=== PATIENT | female | born 1970 | race American Indian/Alaskan Native ===

== ENCOUNTER 2017-01-25 17:20 | Emergency (ER) | payer MEDICARE ==
[2017-01-25 18:13] LABS: Anion Gap 17 mmol/L; Blood Urea Nitrogen 10 mg/dL (7-17); Calcium 8.6 mg/dL (8.4-10.2); Carbon Dioxide 26 mmol/L (22-30); Chloride 101.2 mmol/L (98-107); Glucose 111 mg/dL (65-100); Potassium 3.1 mmol/L (3.6-5.0); Sodium 141 mmol/L (137-145)
[2017-01-25] MEDS ORDERED: K-DUR PO ONE (21:17)
--- NOTE | 2017-01-25 21:58 | Emergency Department Report ---
ED Extremity Problem HPI - General Chief complaint: Extremity Problem,Nontraumatic Stated complaint: ASTHMA Time Seen by Provider: 01/25/17 21:13 Source: patient Mode of arrival: Ambulatory Limitations: No Limitations - History of Present Illness Initial comments: PT c/o leg pain x 2 days. PT states that she noticed that her feet were puffy last night. PT denies injury or trauma. PT states the last time she felt this way, her potassium level was low. PT denies hx of htn. PT states her daughter passed out today and she thinks that it has her bp elevated. MD Complaint: extremity pain Onset/Timin -: Gradual, days(s) Location: lower extremity, bilateral lower extremity History of Same: Yes -: Yes myalgia Severity scale (0 -10): 10 Quality: aching, constant Consistency: constant Improves with: medication (PT states " I need K+") Worsens with: walking Associated Symptoms: myalgias. denies: chest pain - Related Data Previous Rx's Medication Instructions Recorded Last Taken Type Loratadine/Pseudoephedrine 1 tab PO Q12H #60 tablet 05/01/16 1 Day Ago Rx [Claritin-D 12HR] Pantoprazole [Protonix] 40 mg PO QDAY #30 tablet 07/06/16 Unknown Rx methOCARBAMOL [Robaxin TAB] 500 mg PO BID #20 tab 08/21/16 Unknown Rx hydrOXYzine PAMOATE [Vistaril] 50 mg PO Q6HR PRN #15 capsule 09/12/16 Unknown Rx predniSONE [Deltasone] 60 mg PO QDAY #3 tab 09/12/16 Unknown Rx Fluticasone/Salmeterol [Advair 1 puff IH BID #1 blst.w.dev 10/03/16 Unknown Rx Diskus 500-50 mcg] Albuterol Sulfate [Albuterol 0.63% 0.63 mg IH TID PRN #1 box 11/02/16 Unknown Rx NEBS] Acetaminophen/Codeine [Tylenol #3] 1 tab PO Q6H PRN #8 tab 01/25/17 Unknown Rx Potassium Chloride [K-Dur] 20 meq PO QDAY #3 tablet 01/25/17 Unknown Rx Allergies Allergy/AdvReac Type Severity Reaction Status Date / Time doxycycline Allergy Rash Verified 12/11/15 13:48 famotidine [From Pepcid] Allergy Hives Verified 03/11/16 15:13 ketorolac tromethamine Allergy Anaphylaxis Verified 12/11/15 13:48 [From Toradol] Latex, Natural Rubber Allergy Angioedema Verified 12/11/15 13:48 tiotropium bromide Allergy Anaphylaxis Verified 12/11/15 13:48 [From Spiriva with HandiHaler] azithromycin [From Zithromax] AdvReac Anaphylaxis Verified 12/11/15 13:48 NSAIDS (Non-Steroidal AdvReac Anaphylaxis Verified 12/11/15 13:48 Anti-Inflamma Penicillins AdvReac Hives Verified 02/09/16 22:11 ED Review of Systems ROS: Stated complaint: ASTHMA Other details as noted in HPI Comment: All other systems reviewed and negative Constitutional: denies: fever Cardiovascular: denies: chest pain Musculoskeletal: myalgia, other (pt states her feet were swollen last night ) Skin: denies: change in color Neurological: headache. denies: weakness, abnormal gait Psychiatric: other (pt statse she had a stressful day ) ED Past Medical Hx - Past Medical History Previous Medical History?: Yes Hx Hypertension: No Hx Heart Attack/AMI: No Hx Congestive Heart Failure: No Hx Diabetes: No Hx Deep Vein Thrombosis: No Hx Pulmonary Embolism: No Hx GERD: Yes Hx Liver Disease: No Hx Renal Disease: No Hx Sickle Cell Disease: No Hx Arthritis: No Hx Seizures: No Hx Kidney Stones: No Hx Asthma: Yes Hx COPD: No Hx Tuberculosis: No Hx Dementia: No Hx HIV: No Additional medical history: sinus problems. - Surgical History Past Surgical History?: Yes Hx Coronary Stent: No Hx Open Heart Surgery: No Hx Pacemaker: No Hx Internal Defibrillator: No Hx Cholecystectomy: No Hx Appendectomy: No Hx Breast Surgery: No Additional Surgical History: x4, umbilical hernia repair, sinus surgeries, D&C - Social History Smoking Status: Never Smoker Substance Use Type: None - Medications Home Medications: Home Medications Medication Instructions Recorded Confirmed Last Taken Type Loratadine/Pseudoephedrine 1 tab PO Q12H #60 tablet 05/01/16 07/04/16 1 Day Ago Rx [Claritin-D 12HR] Pantoprazole [Protonix] 40 mg PO QDAY #30 tablet 07/06/16 Unknown Rx methOCARBAMOL [Robaxin TAB] 500 mg PO BID #20 tab 08/21/16 Unknown Rx hydrOXYzine PAMOATE [Vistaril] 50 mg PO Q6HR PRN #15 capsule 09/12/16 Unknown Rx predniSONE [Deltasone] 60 mg PO QDAY #3 tab 09/12/16 Unknown Rx Fluticasone/Salmeterol [Advair 1 puff IH BID #1 blst.w.dev 10/03/16 Unknown Rx Diskus 500-50 mcg] Albuterol Sulfate [Albuterol 0.63% 0.63 mg IH TID PRN #1 box 11/02/16 Unknown Rx NEBS] Acetaminophen/Codeine [Tylenol #3] 1 tab PO Q6H PRN #8 tab 01/25/17 Unknown Rx Potassium Chloride [K-Dur] 20 meq PO QDAY #3 tablet 01/25/17 Unknown Rx ED Physical Exam - General Limitations: No Limitations General appearance: alert, in no apparent distress - Head Head exam: Present: atraumatic, normocephalic, normal inspection - Eye Eye exam: Present: normal appearance. Absent: scleral icterus, conjunctival injection - ENT ENT exam: Present: normal exam, normal external ear exam - Neck Neck exam: Present: normal inspection, full ROM - Respiratory Respiratory exam: Absent: respiratory distress, accessory muscle use - Cardiovascular Cardiovascular Exam: Present: regular rate, normal rhythm - Extremities Exam Extremities exam: Present: normal inspection, full ROM, normal capillary refill , other (+ 2 DP kimberly ). Absent: tenderness, pedal edema, joint swelling, calf tenderness - Back Exam Back exam: Present: normal inspection, full ROM - Neurological Exam Neurological exam: Present: alert, oriented X3, normal gait - Psychiatric Psychiatric exam: Present: normal affect, normal mood - Skin Skin exam: Present: warm, dry, intact, normal color. Absent: erythema ED Course Vital Signs 01/25/17 01/25/17 17:26 22:20 Temperature 98.6 F 98.7 F Pulse Rate 93 H 75 Respiratory 20 20 Rate Blood Pressure 141/70 Blood Pressure 137/85 [Right] O2 Sat by Pulse 98 99 Oximetry - Reevaluation(s) Reevaluation #1: 01/25/17 22:06 PT aware of lab results. PT aware she will need to have her bp rechecked at follow up. PT has no questions at this time. - Pulse Oximetry Interpretation Digit-Finger Initial Pulse Oximetry Readin Actions Taken: none ED Medical Decision Making - Lab Data Result diagrams: 01/25/17 17:37 Lab Results 01/25/17 01/25/17 Range/Units 17:37 17:37 D-Dimer 233.08 (0-234) ng/mlDDU Sodium 141 (137-145) mmol/L Potassium 3.1 L (3.6-5.0) mmol/L Chloride 101.2 (98-107) mmol/L Carbon Dioxide 26 (22-30) mmol/L Anion Gap 17 mmol/L BUN 10 (7-17) mg/dL Creatinine 0.8 (0.7-1.2) mg/dL Estimated GFR > 60 ml/min BUN/Creatinine Ratio 12.50 % Glucose 111 H (65-100) mg/dL Calcium 8.6 (8.4-10.2) mg/dL - Differential Diagnosis hypokalemia, pain Critical Care Time: No Critical care attestation.: If time is entered above; I have spent that time in minutes in the direct care of this critically ill patient, excluding procedure time. ED Disposition Clinical Impression: Hypokalemia Leg pain Qualifiers: Laterality: bilateral Qualified Code(s): M79.604 - Pain in right leg Disposition: DISCHARGED TO HOME OR SELFCARE Is pt being admited?: No Does the pt Need Aspirin: No Condition: Stable Instructions: Potassium Content of Foods List (ED), Hypokalemia (ED) Additional Instructions: Follow up with your PCP early next week No driving or ETOH after Tylenol #3 Recheck your bp on follow up Return to the ED if worsening or concerns Prescriptions: Acetaminophen/Codeine [Tylenol #3] 1 tab PO Q6H PRN #8 tab PRN Reason: Pain , Severe (7-10) Potassium Chloride [K-Dur] 20 meq PO QDAY #3 tablet Referrals: HIWOT BRUNO MD [Primary Care Provider] - 3-5 Days Time of Disposition: 22:09
[2017-01-25 22:23] VITALS: BP 137/85
== END 2017-01-25 22:23 | disposition home or self-care (01) ==
LOC: ED 17:20
DX: E87.6 Hypokalemia (principal); M79.604 Pain in right leg; M79.605 Pain in left leg; K20.9 Esophagitis, unspecified; J45.909 Unspecified asthma, uncomplicated
CPT/HCPCS: 36415; 80048; 85379; 99283

== ENCOUNTER 2017-02-05 22:42 | Emergency (ER) | payer MEDICARE ==
[2017-02-05] MEDS: XOPENEX IH ONE (22:55)
[2017-02-05 23:23] LABS: Basophils % (Auto) 0.4 % (0.0-1.8); Hematocrit 36.5 % (30.3-42.9); Hemoglobin 11.4 gm/dl (10.1-14.3); Mean Corpuscular HGB Conc 31 % (30-34); Mean Corpuscular Volume 80 fl (79-97); Platelet Count 241 K/mm3 (140-440); Red Blood Count 4.59 M/mm3 (3.65-5.03); Red Cell Distribution Width 17.9 % (13.2-15.2); White Blood Count 15.3 K/mm3 (4.5-11.0)
[2017-02-05 23:25] LABS: Mean Corpuscular Hemoglobin 25 pg (28-32)
[2017-02-05 23:33] LABS: Anion Gap 21 mmol/L; BUN/Creatinine Ratio 6.66; Blood Urea Nitrogen 6 mg/dL (7-17); Calcium 8.5 mg/dL (8.4-10.2); Carbon Dioxide 20 mmol/L (22-30); Chloride 100.1 mmol/L (98-107); Glucose 223 mg/dL (65-100); Potassium 3.7 mmol/L (3.6-5.0); Sodium 137 mmol/L (137-145)
[2017-02-06] MEDS: ATROVENT IH ONE (02:49)
[2017-02-06] MEDS: PROVENTIL IH ONE (02:49)
[2017-02-06] MEDS: TYLENOL PO ONE (03:09)
[2017-02-06] MEDS: NACL 0.9% 1000 ML 1,000 ML IV ONE (03:10)
[2017-02-06] MEDS: MAGNESIUM SULFATE 2GM/50ML 2 GM/50 ML BAG IV ONE (03:10)
--- NOTE | 2017-02-06 03:22 | Emergency Department Report ---
ED General Adult HPI - General Chief complaint: Adult Asthma Stated complaint: CHEST PAIN/FEVER Time Seen by Provider: 02/06/17 02:26 Source: patient, RN notes reviewed, old records reviewed Mode of arrival: Ambulatory Limitations: No Limitations - History of Present Illness Initial comments: This is a 46-year-old female. Her primary care doctors Dr. Shon Bruno. Past medical history includes GERD, asthma, obesity, asthma. Reports multiple hospital admissions, reports 3 my time intubations. The patient comes to the ER complaining of cough, wheezing, shortness of breath , back pain, total body pain. She reports a fever at home to 103. The symptoms; on for the past day or so. There is no posterior leg pain. There is no posterior leg swelling. No recent trips greater than 4 hours. No recent hospital admissions. The patient does not take control tablets. She does not take cocaine. The patient had a negative nuclear stress test in 2016. Patient reports her symptoms today feel similar to prior episodes of asthma and bronchitis. She does describe anterior chest wall discomfort, which does not radiates to the back, arms or neck. -: Gradual Location: chest, back Severity scale (0 -10): 7 Quality: aching Consistency: constant Improves with: rest Worsens with: movement Associated Symptoms: chest pain, cough, fever/chills, weakness - Related Data Previous Rx's Medication Instructions Recorded Last Taken Type Loratadine/Pseudoephedrine 1 tab PO Q12H #60 tablet 05/01/16 1 Day Ago Rx [Claritin-D 12HR] Pantoprazole [Protonix] 40 mg PO QDAY #30 tablet 07/06/16 Unknown Rx methOCARBAMOL [Robaxin TAB] 500 mg PO BID #20 tab 08/21/16 Unknown Rx hydrOXYzine PAMOATE [Vistaril] 50 mg PO Q6HR PRN #15 capsule 09/12/16 Unknown Rx predniSONE [Deltasone] 60 mg PO QDAY #3 tab 09/12/16 Unknown Rx Fluticasone/Salmeterol [Advair 1 puff IH BID #1 blst.w.dev 10/03/16 Unknown Rx Diskus 500-50 mcg] Albuterol Sulfate [Albuterol 0.63% 0.63 mg IH TID PRN #1 box 11/02/16 Unknown Rx NEBS] Acetaminophen/Codeine [Tylenol #3] 1 tab PO Q6H PRN #8 tab 01/25/17 Unknown Rx Potassium Chloride [K-Dur] 20 meq PO QDAY #3 tablet 01/25/17 Unknown Rx Albuterol Sulfate [Proair 90 mcg IH Q4HR PRN #2 aer.pow.ba 02/06/17 Unknown Rx Respiclick] Benzonatate [Tessalon Perles] 100 mg PO Q8HR PRN #30 capsule 02/06/17 Unknown Rx Fluticasone [Flonase] 1 spray NS QDAY #1 bottle 02/06/17 Unknown Rx Ipratropium [place] [Atrovent Hfa] 12.9 gm IH Q4HR #2 hfa.aer.ad 02/06/17 Unknown Rx Ipratropium [Atrovent NEB] 0.5 mg IH Q4HR #2 ml 02/06/17 Unknown Rx predniSONE [Deltasone] 40 mg PO QDAY #8 tab 02/06/17 Unknown Rx Allergies Allergy/AdvReac Type Severity Reaction Status Date / Time doxycycline Allergy Rash Verified 12/11/15 13:48 famotidine [From Pepcid] Allergy Hives Verified 03/11/16 15:13 ketorolac tromethamine Allergy Anaphylaxis Verified 12/11/15 13:48 [From Toradol] Latex, Natural Rubber Allergy Angioedema Verified 12/11/15 13:48 tiotropium bromide Allergy Anaphylaxis Verified 12/11/15 13:48 [From Spiriva with HandiHaler] azithromycin [From Zithromax] AdvReac Anaphylaxis Verified 12/11/15 13:48 NSAIDS (Non-Steroidal AdvReac Anaphylaxis Verified 12/11/15 13:48 Anti-Inflamma Penicillins AdvReac Hives Verified 02/09/16 22:11 ED Review of Systems ROS: Stated complaint: CHEST PAIN/FEVER Other details as noted in HPI Constitutional: fever Eyes: denies: vision change ENT: denies: epistaxis Respiratory: cough, wheezing Cardiovascular: chest pain Gastrointestinal: denies: abdominal pain Musculoskeletal: back pain, arthralgia, myalgia Skin: denies: lesions Neurological: weakness ED Past Medical Hx - Past Medical History Previous Medical History?: Yes Hx Hypertension: No Hx Heart Attack/AMI: No Hx Congestive Heart Failure: No Hx Diabetes: No Hx Deep Vein Thrombosis: No Hx Pulmonary Embolism: No Hx GERD: Yes Hx Liver Disease: No Hx Renal Disease: No Hx Sickle Cell Disease: No Hx Arthritis: No Hx Seizures: No Hx Kidney Stones: No Hx Asthma: Yes Hx COPD: No Hx Tuberculosis: No Hx Dementia: No Hx HIV: No Additional medical history: sinus problems. - Surgical History Past Surgical History?: Yes Hx Coronary Stent: No Hx Open Heart Surgery: No Hx Pacemaker: No Hx Internal Defibrillator: No Hx Cholecystectomy: No Hx Appendectomy: No Hx Breast Surgery: No Additional Surgical History: x4, umbilical hernia repair, sinus surgeries, D&C - Social History Smoking Status: Never Smoker Substance Use Type: None - Medications Home Medications: Home Medications Medication Instructions Recorded Confirmed Last Taken Type Loratadine/Pseudoephedrine 1 tab PO Q12H #60 tablet 05/01/16 07/04/16 1 Day Ago Rx [Claritin-D 12HR] Pantoprazole [Protonix] 40 mg PO QDAY #30 tablet 07/06/16 Unknown Rx methOCARBAMOL [Robaxin TAB] 500 mg PO BID #20 tab 08/21/16 Unknown Rx hydrOXYzine PAMOATE [Vistaril] 50 mg PO Q6HR PRN #15 capsule 09/12/16 Unknown Rx predniSONE [Deltasone] 60 mg PO QDAY #3 tab 09/12/16 Unknown Rx Fluticasone/Salmeterol [Advair 1 puff IH BID #1 blst.w.dev 10/03/16 Unknown Rx Diskus 500-50 mcg] Albuterol Sulfate [Albuterol 0.63% 0.63 mg IH TID PRN #1 box 11/02/16 Unknown Rx NEBS] Acetaminophen/Codeine [Tylenol #3] 1 tab PO Q6H PRN #8 tab 01/25/17 Unknown Rx Potassium Chloride [K-Dur] 20 meq PO QDAY #3 tablet 01/25/17 Unknown Rx Albuterol Sulfate [Proair 90 mcg IH Q4HR PRN #2 aer.pow.ba 02/06/17 Unknown Rx Respiclick] Benzonatate [Tessalon Perles] 100 mg PO Q8HR PRN #30 capsule 02/06/17 Unknown Rx Fluticasone [Flonase] 1 spray NS QDAY #1 bottle 02/06/17 Unknown Rx Ipratropium [place] [Atrovent Hfa] 12.9 gm IH Q4HR #2 hfa.aer.ad 02/06/17 Unknown Rx Ipratropium [Atrovent NEB] 0.5 mg IH Q4HR #2 ml 02/06/17 Unknown Rx predniSONE [Deltasone] 40 mg PO QDAY #8 tab 02/06/17 Unknown Rx ED Physical Exam - General Limitations: No Limitations General appearance: alert, in no apparent distress - Head Head exam: Present: atraumatic, normocephalic - Eye Eye exam: Present: normal appearance, EOMI. Absent: nystagmus - ENT ENT exam: Present: normal exam, normal orophraynx, mucous membranes moist, normal external ear exam - Neck Neck exam: Present: normal inspection, full ROM. Absent: tenderness, meningismus - Respiratory Respiratory exam: Present: respiratory distress, wheezes, rhonchi - Cardiovascular Cardiovascular Exam: Present: normal rhythm, tachycardia, normal heart sounds. Absent: systolic murmur, diastolic murmur, rubs, gallop - GI/Abdominal GI/Abdominal exam: Present: soft, normal bowel sounds. Absent: distended, tenderness, guarding, rebound, rigid, pulsatile mass - Extremities Exam Extremities exam: Present: normal inspection, full ROM, normal capillary refill. Absent: tenderness, pedal edema, joint swelling, calf tenderness - Back Exam Back exam: Present: normal inspection, full ROM. Absent: tenderness, CVA tenderness (R), CVA tenderness (L), muscle spasm - Neurological Exam Neurological exam: Present: alert, oriented X3, normal gait, other (Extraocular movements intact. Tongue midline. No facial droop. Facial sensation intact to light touch in the V1, V2, V3 distribution bilaterally. 5 and 5 strength in 4 extremities.. Sensation is intact to light touch in 4 extremities.). Absent : motor sensory deficit - Psychiatric Psychiatric exam: Present: normal affect, normal mood - Skin Skin exam: Present: warm, dry, intact, normal color. Absent: rash ED Course Vital Signs 02/05/17 02/06/17 02/06/17 22:47 01:29 01:30 Temperature 99.8 F H Pulse Rate 112 H 106 H Pulse Rate [ Anterior Upper Lobe] Respiratory 28 H 26 H 26 H Rate Respiratory Rate [Anterior Upper Lobe] Blood Pressure 116/75 130/72 [Right] O2 Sat by Pulse 97 98 Oximetry 05/03/17 05/03/17 05/03/17 02:49 03:32 04:00 Temperature Pulse Rate 100 H Pulse Rate [ 102 H 107 H Anterior Upper Lobe] Respiratory 20 Rate Respiratory 18 18 Rate [Anterior Upper Lobe] Blood Pressure 125/68 [Right] O2 Sat by Pulse 97 Oximetry 02/06/17 04:35 Temperature Pulse Rate 78 Pulse Rate [ Anterior Upper Lobe] Respiratory 16 Rate Respiratory Rate [Anterior Upper Lobe] Blood Pressure 110/65 [Right] O2 Sat by Pulse 96 Oximetry - Reevaluation(s) Reevaluation #1: 02/06/17 03:52 differential diagnosis: Pneumonia, influenza-like illness, myositis, viral syndrome, acute coronary syndrome, asthma exacerbation, bronchitis Assessment and plan: 46-year-old female with approximately 36 hours of bodyaches , fever, cough, chest wall pain, congestion and wheezing. No pulmonary embolus or DVT risk factors, low risk by well's criteria. EKG is appreciated, it is morphologically abnormal, patient had a negative nuclear stress test in 2016. The patient is low risk by TATE score, low risk by Heart score. She reports that she does not experience anaphylaxis with Atrovent. She will be treated with Albuterol, Atrovent, steroids, magnesium, Tylenol. We will check basic laboratory studies, influenza swab. We will give her a trial of ambulation. We will reassess. Reevaluation #2: 02/06/17 04:28 patient still wheezing slightly. However she is able to ambulate without desaturation. Repeat EKG essentially unremarkable. Repeat troponin negative. Patient feels improved. Reevaluation #3: 02/06/17 05:25 reassessed. Sleeping comfortably. Tachycardia resolved. Troponin negative 2. Flu swab negative. Patient will be discharged. Appropriate prescriptions have been written. ED Medical Decision Making - Lab Data Result diagrams: 02/05/17 22:57 02/05/17 22:57 Vital Signs 02/05/17 02/06/17 02/06/17 22:47 01:29 01:30 Temperature 99.8 F H Pulse Rate 112 H 106 H Pulse Rate [ Anterior Upper Lobe] Respiratory 28 H 26 H 26 H Rate Respiratory Rate [Anterior Upper Lobe] Blood Pressure 116/75 130/72 [Right] O2 Sat by Pulse 97 98 Oximetry 02/06/17 02/06/17 02:49 03:32 Temperature Pulse Rate 100 H Pulse Rate [ 102 H Anterior Upper Lobe] Respiratory 20 Rate Respiratory 18 Rate [Anterior Upper Lobe] Blood Pressure 125/68 [Right] O2 Sat by Pulse 97 Oximetry Lab Results 02/05/17 02/05/17 02/06/17 Range/Units 22:57 22:57 02:58 WBC 15.3 H (4.5-11.0) K/mm3 RBC 4.59 (3.65-5.03) M/mm3 Hgb 11.4 (10.1-14.3) gm/dl Hct 36.5 (30.3-42.9) % MCV 80 (79-97) fl MCH 25 L (28-32) pg MCHC 31 (30-34) % RDW 17.9 H (13.2-15.2) % Plt Count 241 (140-440) K/mm3 Lymph % (Auto) 9.6 L (13.4-35.0) % Alcorn % (Auto) 8.5 H (0.0-7.3) % Eos % (Auto) 3.0 (0.0-4.3) % Baso % (Auto) 0.4 (0.0-1.8) % Lymph # 1.5 (1.2-5.4) K/mm3 Alcorn # 1.3 H (0.0-0.8) K/mm3 Eos # 0.5 H (0.0-0.4) K/mm3 Baso # 0.1 (0.0-0.1) K/mm3 Seg Neutrophils % 78.5 H (40.0-70.0) % Seg Neutrophils # 12.0 H (1.8-7.7) K/mm3 PT 13.4 (12.2-14.9) Sec. INR 1.03 (0.87-1.13) Sodium 137 (137-145) mmol/L Potassium 3.7 (3.6-5.0) mmol/L Chloride 100.1 (98-107) mmol/L Carbon Dioxide 20 L (22-30) mmol/L Anion Gap 21 mmol/L BUN 6 L (7-17) mg/dL Creatinine 0.9 (0.7-1.2) mg/dL Estimated GFR > 60 ml/min BUN/Creatinine Ratio 6.66 % Glucose 223 H (65-100) mg/dL Calcium 8.5 (8.4-10.2) mg/dL Total Creatine Kinase (30-135) units/L Troponin T < 0.010 (0.00-0.029) ng/mL HCG, Quant (0-4) mIU/mL 02/06/17 02/06/17 Range/Units 02:58 02:58 WBC (4.5-11.0) K/mm3 RBC (3.65-5.03) M/mm3 Hgb (10.1-14.3) gm/dl Hct (30.3-42.9) % MCV (79-97) fl MCH (28-32) pg MCHC (30-34) % RDW (13.2-15.2) % Plt Count (140-440) K/mm3 Lymph % (Auto) (13.4-35.0) % Alcorn % (Auto) (0.0-7.3) % Eos % (Auto) (0.0-4.3) % Baso % (Auto) (0.0-1.8) % Lymph # (1.2-5.4) K/mm3 Alcorn # (0.0-0.8) K/mm3 Eos # (0.0-0.4) K/mm3 Baso # (0.0-0.1) K/mm3 Seg Neutrophils % (40.0-70.0) % Seg Neutrophils # (1.8-7.7) K/mm3 PT (12.2-14.9) Sec. INR (0.87-1.13) Sodium (137-145) mmol/L Potassium (3.6-5.0) mmol/L Chloride (98-107) mmol/L Carbon Dioxide (22-30) mmol/L Anion Gap mmol/L BUN (7-17) mg/dL Creatinine (0.7-1.2) mg/dL Estimated GFR ml/min BUN/Creatinine Ratio % Glucose (65-100) mg/dL Calcium (8.4-10.2) mg/dL Total Creatine Kinase 333 H (30-135) units/L Troponin T (0.00-0.029) ng/mL HCG, Quant < 2 (0-4) mIU/mL - EKG Data -: EKG Interpreted by Me EKG shows normal: sinus rhythm, axis - EKG Data 02/06/17 03:55 sinus tachycardia, 113 beats per minute, QTC 460 ms, T-wave inversion in 3 and aVF, abnormal EKG, not morphologically consistent with STEMI , but compared to prior EKG from 07/06/2016, no significant changes. EKG #2 demonstrates sinus tachycardia, 115 bpm, normal intervals, normal axis, not morphologically consistent with STEMI. 02/06/17 04:28 - Radiology Data Radiology results: image reviewed interpreted by me: X-ray of the chest is negative for acute disease. Critical care attestation.: If time is entered above; I have spent that time in minutes in the direct care of this critically ill patient, excluding procedure time. ED Disposition Clinical Impression: Chest pain, Asthma exacerbation Disposition: DISCHARGED TO HOME OR SELFCARE Is pt being admited?: No Does the pt Need Aspirin: No Condition: Stable Instructions: Chest Pain (ED), Asthma (ED), Costochondritis (ED) Additional Instructions: take the medication as directed. follow up with a primary care doctor or roll plugger within the next 3-5 days. Take acetaminophen every 4-6 hours as needed for pain. Return to the ER right away with new pain, worsened pain, migration of pain, fevers or chills, intractable nausea or vomiting, inability to tolerate liquid feeds. Symptoms today likely consistent with viral syndrome and/or bronchitis. This typically is not require antibiotics. Prescriptions: Albuterol Sulfate [Proair Respiclick] 90 mcg IH Q4HR PRN #2 aer.pow.ba PRN Reason: Wheezing Benzonatate [Tessalon Perles] 100 mg PO Q8HR PRN #30 capsule PRN Reason: Cough Fluticasone [Flonase] 1 spray NS QDAY #1 bottle Ipratropium [Atrovent NEB] 0.5 mg IH Q4HR #2 ml Ipratropium [place] [Atrovent Hfa] 12.9 gm IH Q4HR #2 hfa.aer.ad predniSONE [Deltasone] 40 mg PO QDAY #8 tab Referrals: SHON BRUNO MD [Primary Care Provider] - 3-5 Days ARLETH OCHOA MD [Staff Physician] - 3-5 Days
[2017-02-06 03:43] LABS: INR 1.03 (0.87-1.13)
[2017-02-06 04:35] VITALS: BP 110/65
--- NOTE | 2017-02-06 08:38 | XRay Report ---
ROUTINE CHEST, TWO VIEWS: History: Shortness of breath. PA and lateral views demonstrate the heart and mediastinal contour to be of normal size and shape. The lungs are clear and fully expanded and the soft tissues and bony structures are normal. IMPRESSION: Normal study.
== END 2017-02-06 05:50 | disposition home or self-care (01) ==
LOC: ED 22:42
DX: J45.901 Unspecified asthma with (acute) exacerbation (principal); R07.9 Chest pain, unspecified; K21.9 Gastro-esophageal reflux disease without esophagitis; Z91.040 Latex allergy status; Z88.0 Allergy status to penicillin; Z88.8 Allergy status to other drugs, medicaments and biological substances
CPT/HCPCS: 36415; 71020; 80048; 82550; 84484; 84702; 85025; 85610; 87400; 93005; 93010; 94644; 96365; 96366; 96375; 99284; J2930; J3475; J7030

== ENCOUNTER 2017-02-16 04:42 | Inpatient (IN) | payer MEDICARE ==
[2017-02-16] MEDS ORDERED: TYLENOL PO ONE (04:54)
[2017-02-16] MEDS ORDERED: PROVENTIL IH ONE ×3 (05:15→10:19)
[2017-02-16 05:40] LABS: Basophils % (Auto) 0.2 % (0.0-1.8); Eosinophils % (Auto) 1.6 % (0.0-4.3); Mean Corpuscular HGB Conc 31 % (30-34); Mean Corpuscular Volume 81 fl (79-97); Platelet Count 298 K/mm3 (140-440); Red Blood Count 5.22 M/mm3 (3.65-5.03); Red Cell Distribution Width 17.8 % (13.2-15.2); White Blood Count 17.3 K/mm3 (4.5-11.0)
[2017-02-16 05:41] LABS: Hematocrit 42.1 % (30.3-42.9); Mean Corpuscular Hemoglobin 25 pg (28-32)
[2017-02-16 05:42] LABS: Alanine Aminotransferase 20 units/L (7-56); Albumin 4.1 g/dL (3.9-5); Albumin/Globulin Ratio 1.5 %; Alkaline Phosphatase 66 units/L (35-129); Anion Gap 19 mmol/L; BUN/Creatinine Ratio 11.11; Blood Urea Nitrogen 10 mg/dL (7-17); Calcium 9.2 mg/dL (8.4-10.2); Carbon Dioxide 23 mmol/L (22-30); Chloride 102.3 mmol/L (98-107); Glucose 129 mg/dL (65-100); Lipase 26 units/L (13-60); Sodium 140 mmol/L (137-145); Total Protein 6.8 g/dL (6.3-8.2)
--- NOTE | 2017-02-16 08:51 | Emergency Department Report ---
ED Abdominal Pain HPI - General Chief Complaint: Abdominal Pain Stated Complaint: HERNIA, ASTHMA Time Seen by Provider: 02/16/17 08:42 Source: patient Mode of arrival: Wheelchair Limitations: No Limitations - History of Present Illness Initial Comments: The patient complains of periumbilical abdominal pain since yesterday. She states that she had a normal bowel movement this morning but then later said it was diarrhea. She denies any signs of dark stool or GI bleeding. She's not been vomiting. She states he's had no difficulty in urinating. She describes pain as somewhat intermittent in nature. It is felt does not radiate. It would appear that the patient was diagnosed with an umbilical hernia approximately [address] [facility] on a CAT scan exam. Apparently there was no signs of strangulation at that time and she was referred to Dr. Escobedo who I assume is Rex Escobedo the music education adjunct professor. The patient additionally states that she had a "hernia after a ". This was many years ago and it has subsequently been repaired. She's not had any problem in the infraclavicular area had for about her scar. Patient is complaining of some problems with her chronic asthma today. She denies cough chest pain or fever. MD Complaint: abdominal pain -: Gradual, hour(s) Location: periumbilical Radiation: none Migration to: no migration Severity: moderate Severity scale (0 -10): 7 Quality: aching Consistency: intermittent Improves With: nothing Worsens With: nothing Associated Symptoms: diarrhea - Related Data Previous Rx's Medication Instructions Recorded Last Taken Type Albuterol Sulfate [Albuterol 0.63% 0.63 mg IH TID PRN #1 box 11/02/16 Unknown Rx NEBS] Acetaminophen/Codeine [Tylenol #3] 1 tab PO Q6H PRN #8 tab 01/25/17 Unknown Rx Fluticasone [Flonase] 1 spray NS QDAY #1 bottle 02/06/17 Unknown Rx Ipratropium [Atrovent NEB] 0.5 mg IH Q4HR #2 ml 02/06/17 Unknown Rx Allergies Allergy/AdvReac Type Severity Reaction Status Date / Time doxycycline Allergy Rash Verified 12/11/15 13:48 famotidine [From Pepcid] Allergy Hives Verified 03/11/16 15:13 ketorolac tromethamine Allergy Anaphylaxis Verified 12/11/15 13:48 [From Toradol] Latex, Natural Rubber Allergy Angioedema Verified 12/11/15 13:48 morphine Allergy Shortness Verified 02/16/17 09:42 of Breath tiotropium bromide Allergy Anaphylaxis Verified 12/11/15 13:48 [From Spiriva with HandiHaler] azithromycin [From Zithromax] AdvReac Anaphylaxis Verified 12/11/15 13:48 NSAIDS (Non-Steroidal AdvReac Anaphylaxis Verified 12/11/15 13:48 Anti-Inflamma Penicillins AdvReac Hives Verified 02/09/16 22:11 ED Review of Systems ROS: Stated complaint: HERNIA, ASTHMA Other details as noted in HPI Constitutional: denies: chills, fever Eyes: denies: eye pain, eye discharge, vision change ENT: denies: ear pain, throat pain Respiratory: denies: cough, shortness of breath, wheezing Cardiovascular: denies: chest pain, palpitations Endocrine: no symptoms reported Gastrointestinal: abdominal pain, diarrhea. denies: nausea, vomiting Genitourinary: denies: urgency, dysuria, discharge Musculoskeletal: denies: back pain, joint swelling, arthralgia Skin: denies: rash, lesions Neurological: denies: headache, weakness, paresthesias Psychiatric: denies: anxiety, depression Hematological/Lymphatic: denies: easy bleeding, easy bruising ED Past Medical Hx - Past Medical History Previous Medical History?: Yes Hx Hypertension: No Hx Heart Attack/AMI: No Hx Congestive Heart Failure: No Hx Diabetes: No Hx Deep Vein Thrombosis: No Hx Pulmonary Embolism: No Hx GERD: Yes Hx Liver Disease: No Hx Renal Disease: No Hx Sickle Cell Disease: No Hx Arthritis: No Hx Seizures: No Hx Kidney Stones: No Hx Asthma: Yes Hx COPD: No Hx Tuberculosis: No Hx Dementia: No Hx HIV: No Additional medical history: sinus problems / ABD HERNIA. - Surgical History Past Surgical History?: Yes Hx Coronary Stent: No Hx Open Heart Surgery: No Hx Pacemaker: No Hx Internal Defibrillator: No Hx Cholecystectomy: No Hx Appendectomy: No Hx Breast Surgery: No Additional Surgical History: x4, umbilical hernia repair, sinus surgeries, D&C - Social History Smoking Status: Never Smoker Substance Use Type: None - Medications Home Medications: Home Medications Medication Instructions Recorded Confirmed Last Taken Type Albuterol Sulfate [Albuterol 0.63% 0.63 mg IH TID PRN #1 box 11/02/16 02/16/17 Unknown Rx NEBS] Acetaminophen/Codeine [Tylenol #3] 1 tab PO Q6H PRN #8 tab 01/25/17 02/16/17 Unknown Rx Fluticasone [Flonase] 1 spray NS QDAY #1 bottle 02/06/17 02/16/17 Unknown Rx Ipratropium [Atrovent NEB] 0.5 mg IH Q4HR #2 ml 02/06/17 02/16/17 Unknown Rx ED Physical Exam - General Limitations: No Limitations General appearance: alert, in no apparent distress - Head Head exam: Present: atraumatic, normocephalic - Eye Eye exam: Present: normal appearance. Absent: scleral icterus - ENT ENT exam: Present: normal exam, mucous membranes moist - Neck Neck exam: Present: normal inspection - Respiratory Respiratory exam: Present: normal lung sounds bilaterally. Absent: respiratory distress - Cardiovascular Cardiovascular Exam: Present: regular rate, normal rhythm. Absent: systolic murmur, diastolic murmur, rubs, gallop - GI/Abdominal GI/Abdominal exam: Present: soft, tenderness (periumbilical), normal bowel sounds, hernia (cannot palpate a hernia but pt obese). Absent: distended, guarding, rebound, rigid, organomegaly, mass, bruit, pulsatile mass - Extremities Exam Extremities exam: Present: normal inspection - Back Exam Back exam: Present: normal inspection - Neurological Exam Neurological exam: Present: alert, oriented X3, CN II-XII intact. Absent: motor sensory deficit - Psychiatric Psychiatric exam: Present: normal affect, normal mood - Skin Skin exam: Present: warm, dry, intact, normal color. Absent: rash ED Course Vital Signs 02/16/17 02/16/17 02/16/17 04:46 05:50 05:51 Temperature 98.0 F Pulse Rate 93 H Pulse Rate [ 72 75 Posterior] Respiratory 20 Rate Respiratory 21 20 Rate [Posterior ] Blood Pressure 125/103 Blood Pressure [Left] O2 Sat by Pulse 98 Oximetry 02/16/17 02/16/17 02/16/17 06:05 08:16 08:21 Temperature Pulse Rate Pulse Rate [ 78 Posterior] Respiratory Rate Respiratory 20 Rate [Posterior ] Blood Pressure 116/72 Blood Pressure [Left] O2 Sat by Pulse 95 96 Oximetry 02/16/17 02/16/17 02/16/17 08:31 08:32 08:41 Temperature Pulse Rate 78 Pulse Rate [ Posterior] Respiratory 18 18 Rate Respiratory Rate [Posterior ] Blood Pressure 91/43 Blood Pressure 116/72 [Left] O2 Sat by Pulse 96 96 95 Oximetry 02/16/17 02/16/17 02/16/17 09:00 09:20 09:40 Temperature Pulse Rate Pulse Rate [ Posterior] Respiratory Rate Respiratory Rate [Posterior ] Blood Pressure 103/73 91/43 103/73 Blood Pressure [Left] O2 Sat by Pulse 96 97 95 Oximetry 02/16/17 02/16/17 02/16/17 10:00 10:08 10:20 Temperature Pulse Rate 84 Pulse Rate [ Posterior] Respiratory 18 Rate Respiratory Rate [Posterior ] Blood Pressure 122/71 122/71 Blood Pressure 122/71 [Left] O2 Sat by Pulse 96 96 95 Oximetry 02/16/17 02/16/17 02/16/17 10:23 10:40 10:50 Temperature Pulse Rate Pulse Rate [ 79 79 Posterior] Respiratory Rate Respiratory 20 18 Rate [Posterior ] Blood Pressure 122/75 Blood Pressure [Left] O2 Sat by Pulse 94 Oximetry 02/16/17 02/16/17 02/16/17 11:00 11:20 11:59 Temperature Pulse Rate Pulse Rate [ 81 Posterior] Respiratory Rate Respiratory 18 Rate [Posterior ] Blood Pressure 122/75 128/77 Blood Pressure [Left] O2 Sat by Pulse 92 89 Oximetry 02/16/17 02/16/17 02/16/17 12:00 12:19 12:20 Temperature Pulse Rate Pulse Rate [ 90 Posterior] Respiratory Rate Respiratory 18 Rate [Posterior ] Blood Pressure 116/64 116/64 Blood Pressure [Left] O2 Sat by Pulse 96 Oximetry 02/16/17 02/16/17 12:40 13:00 Temperature Pulse Rate Pulse Rate [ Posterior] Respiratory Rate Respiratory Rate [Posterior ] Blood Pressure 107/72 110/60 Blood Pressure [Left] O2 Sat by Pulse 98 100 Oximetry - Reevaluation(s) Reevaluation #1: Discussed with Dr. Talbert. Patient will be admitted. I'll place a GI consult as well. Further antibiotic coverage for Dr. Talbert's discretion. Patient admitted in stable condition. I'm going to give the patient one dose of Solu-Medrol in consideration of her persistent wheezing. Perhaps he will help her ileitis. 02/16/17 13:30 02/16/17 13:32 ED Medical Decision Making - Lab Data Result diagrams: 02/16/17 04:59 02/16/17 04:59 Laboratory Results - last 24 hr 02/16/17 02/16/17 04:59 04:59 WBC 17.3 H RBC 5.22 H Hgb 13.0 Hct 42.1 MCV 81 MCH 25 L MCHC 31 RDW 17.8 H Plt Count 298 Lymph % (Auto) 9.1 L [place] % (Auto) 5.1 Eos % (Auto) 1.6 Baso % (Auto) 0.2 Lymph # 1.6 Walsh # 0.9 H Eos # 0.3 Baso # 0.0 Seg Neutrophils % 84.0 H Seg Neutrophils # 14.6 H Sodium 140 Potassium 4.0 Chloride 102.3 Carbon Dioxide 23 Anion Gap 19 BUN 10 Creatinine 0.9 Estimated GFR > 60 BUN/Creatinine Ratio 11.11 Glucose 129 H Calcium 9.2 Total Bilirubin 0.30 AST 18 ALT 20 Alkaline Phosphatase 66 Total Protein 6.8 Albumin 4.1 Albumin/Globulin Ratio 1.5 Lipase 26 - Radiology Data Radiology results: report reviewed interpreted by me: CT of the abdomen radiologist states ileitis possibly consistent with Crohn's. Compared to CT of 2015 the changes are new. Critical care attestation.: If time is entered above; I have spent that time in minutes in the direct care of this critically ill patient, excluding procedure time. ED Disposition Clinical Impression: Ileitis, Exacerbation of asthma Abdominal pain Qualifiers: Abdominal location: periumbilical Qualified Code(s): R10.33 - Periumbilical pain Leucocytosis Qualifiers: Leukocytosis type: unspecified Qualified Code(s): D72.829 - Elevated white blood cell count, unspecified Disposition: OP ADMITTED IP TO THIS HOSP Is pt being admited?: Yes Does the pt Need Aspirin: No Condition: Stable Instructions: Abdominal Pain (ED) Referrals: HIWOT BRUNO MD [Primary Care Provider] - 3-5 Days Time of Disposition: 13:31
[2017-02-16] MEDS ORDERED: NACL 0.9% 1000 ML 1,000 ML IV ONE (08:53)
[2017-02-16] MEDS ORDERED: ZOFRAN IV ONE ×2 (08:56→11:31)
[2017-02-16] MEDS ORDERED: MAXIPIME/NS 1 GM/100 ML 1 GM/100 ML BAG IV ONE (08:56)
[2017-02-16] MEDS ORDERED: MORPHINE IV ONE (08:56)
[2017-02-16] MEDS ORDERED: PROTONIX IV ONE (08:56)
[2017-02-16 09:17] LABS: Bilirubin,Urine NEG (Negative); Blood,Urine NEG (Negative); Ketones,Urine NEG (Negative); Leukocyte Esterase,Urine NEG (Negative); Mucus,Urine 3+ /HPF; Nitrite,Urine NEG (Negative); Protein,Urine <15 mg/dL mg/dL (Negative); Urobilinogen,Urine < 2.0 mg/dL (<2.0)
[2017-02-16 09:32] LABS: INR 0.94 (0.87-1.13)
[2017-02-16 09:33] LABS: Partial Thromboplastin Time 27.3 Sec. (24.2-36.6)
[2017-02-16] MEDS ORDERED: DILAUDID IV ONE (09:41)
--- NOTE | 2017-02-16 09:47 | XRay Report ---
AP CHEST: HISTORY: Sepsis, fever AP view of the chest demonstrates a normal mediastinal and cardiac contour with clear lungs and normal bony and soft tissue structures. No change since 02/05/17. IMPRESSION: Unremarkable AP chest.
[2017-02-16] MEDS ORDERED: NACL ONE (10:36)
[2017-02-16] MEDS ORDERED: ZOFRAN ONE (11:21)
[2017-02-16] MEDS ORDERED: DUONEB 0.5 MG-3 MG/3 ML SOLN IH ONE (11:34)
--- NOTE | 2017-02-16 12:10 | Cat Scan Report ---
CT SCAN OF THE ABDOMEN AND PELVIS WITH CONTRAST: HISTORY: Abdominal pain, umbilical hernia. TECHNIQUE: Helical CT in 1.25mm intervals following IV contrast. Sagittal and coronal reconstructions. FINDINGS: Compared to 04/30/15. Mild circumferential thickening of the distal ileum this suspected. This may represent a nonspecific enteritis or Crohn's disease. This appears to be a new finding since 2015. Some of these bowel loops are in the vicinity of the umbilicus. There is no evidence for bowel obstruction, pneumatosis or free air. Normal appendix. The liver is normal in size and is without focal defect. No gallstones or biliary dilatation are noted. The spleen and pancreas demonstrate a normal size and attenuation with no evidence of abnormal mass. The kidneys are normal in size and position with no evidence of hydronephrosis or mass. The adrenal glands are normal. The abdominal aorta is normal. A 2.6 cm left ovarian cyst is identified. The right ovary and uterus are unremarkable. Small to medium pelvic ascites is identified. No adenopathy is identified. The bladder is normal. No hernia is identified. IMPRESSION: Mild circumferential thickening of the ileum which could represent an enteritis. Please correlate with the patient. 2.6 cm left ovarian cyst. Small to medium pelvic ascites. No evidence for umbilical hernia.
--- NOTE | 2017-02-16 17:04 | Admit Criteria Form ---
Admission Criteria Documentation: ABDOMINAL PAIN Clinical Indications for Admission to Inpatient Care (Place 'X' for any and all applicable criteria): Admission is indicated for ANY ONE of the following(1)(2)(3)(4)(5): [ X]I. Inpatient admission required rather than observation care (Also use Abdominal Pain: Observation Care, as appropriate) because of ANY ONE of the following: [ ]a) Severe pain requiring acute inpatient management [X ]b) Identification of etiology/finding that requires inpatient care (eg, aortic dissection, free air) [ ]c) Absent bowel sounds with complete ileus(6) [ ]d) Suspected toxic megacolon [ ]e) Severe electrolyte abnormalities requiring inpatient care [ ]f) High fever or infection requiring inpatient admission as indicated by ANY ONE of following(7)(8): [ ] i) Appropriate outpatient or observational care antimicrobial treatment unavailable, not effective, or not feasible [ ] ii) Documented bacteremia [ ] iii) Temperature > 104.9 degrees F (oral) [ ] iv) T >103.1 F (oral) or < 96.8 F(rectal) that does not respond to all emergency treatment measures [ ]g) Signs of intestinal obstruction [B] [ ]h) Hemodynamic instability [ ]i) IV fluid to replace significant ongoing losses (greater than 3 L/m2 per day) (12)(13) [ ]j) Percutaneous or open drainage (eg, abscess, biliary tract ) procedures [ ]k) Parenteral nutrition regimen that must be implemented on inpatient basis [ ]l) Other condition,treatment or monitoring requiring inpatient admission. [ ]II. Peritoneal signs present [ ]III. Surgery needed that cannot be performed on an ambulatory basis. [ ]IV. Evaluation requires patient to not eat or drink for extended period ( eg, more than 24 hours). [ ]V. Contraindications and/or Inappropriate clinical situations for Observational Care in patients with abdominal pain, when ANY ONE of the following is required: [ ]a) Thorough evaluation is required to prevent catastrophic events due to delays in diagnosing (e.g.Mesenteric ischemia) 1,3 [ ]b) Patient with severe pathology or with chronic symptoms unlikely to improve in the ED stay (3) [ ]. General contraindications and/or Inappropriate clinical situations for Observational Care in patients with abdominal pain, when ANY ONE of the following is required: [ ]a) Prediction of prolongation of LOS based on ANY ONE of the following may be considered as a contraindication for observational care 2, 3, 4, 5, 6, 7, 8, 9, 10, 11 [ ]i) Age > 65 yrs. [ ]ii) Patient arriving by ambulance [ ]iii) Patient with high acuity [ ]iv) Patient requiring vital sign monitoring [ ]v) Patient on IV medication [ ]b) Systolic blood pressures 180mmHg 3,12 [ ]c) Patient with altered mental status including delirium and other alteration of consciousness, (3) [ ]d) Patient whose discharge disposition will be to a correction home or rehabilitation home should not be managed in Emergency Department Observation Unit. CMS rule requires 3 days hospital stay before such placement.3,13 [ ]e) Patient with failure to thrive due to broad array of etiologies 3,16,17 [ ]f) Inability to ambulate 3,14 Extended stay beyond goal length of stay may be needed for(2)(3): [ ]a) Persistent abdominal pain with suspected intra-abdominal process [ ]b) Diagnosed condition requiring continued stay (e.g., pancreatitis, complicated diverticulitis) [ ]c) Surgery (e.g., colectomy) The original [employer] content created by [employer] has been revised. The portions of the content which have been revised are identified through the use of italic text or in bold, and [facility] has neither reviewed nor approved the modified material.All other unmodified content is copyright [employer]. Please see references footnoted in the original [employer] edition 2016 Admission Criteria Met: Yes
[2017-02-16] MEDS: DUONEB 0.5 MG-3 MG/3 ML SOLN IH SCH (19:59)
[2017-02-16] MEDS: PULMICORT IH SCH (19:59)
[2017-02-16] MEDS ORDERED: PROVENTIL IH SCH (20:00)
[2017-02-16] MEDS ORDERED: DILAUDID IV PRN (21:03)
[2017-02-16] MEDS ORDERED: ZOFRAN IV PRN (21:03)
[2017-02-16] MEDS ORDERED: TYLENOL PO PRN (21:03)
[2017-02-16] MEDS ORDERED: MILK OF MAGNESIA PO PRN (21:03)
[2017-02-16] MEDS ORDERED: DULCOLAX PR PRN (21:03)
--- NOTE | 2017-02-16 21:03 | Event Note ---
Date: 02/16/17 See H/p in reports
[2017-02-16] MEDS: ZOSYN/NS 4.5GM/100ML 4.5 GM/100 ML VIAL IV SCH (22:32)
[2017-02-16] MEDS: D5NS 1,000 ML IV SCH (23:29)
[2017-02-17] MEDS: ZOSYN/NS 4.5GM/100ML 4.5 GM/100 ML VIAL IV SCH ×3 (05:06→21:37)
[2017-02-17 06:10] LABS: Mean Corpuscular HGB Conc 31 % (30-34); Mean Corpuscular Volume 80 fl (79-97); Red Blood Count 4.68 M/mm3 (3.65-5.03); Red Cell Distribution Width 17.7 % (13.2-15.2)
[2017-02-17 06:20] LABS: Hematocrit 37.4 % (30.3-42.9); Hemoglobin 11.5 gm/dl (10.1-14.3); Mean Corpuscular Hemoglobin 25 pg (28-32); White Blood Count 21.6 K/mm3 (4.5-11.0)
[2017-02-17] MEDS: PULMICORT IH SCH ×3 (06:20→20:45)
[2017-02-17] MEDS: DUONEB 0.5 MG-3 MG/3 ML SOLN IH SCH ×4 (06:20→20:45)
[2017-02-17 06:25] LABS: Alanine Aminotransferase 16 units/L (7-56); Albumin 3.4 g/dL (3.9-5); Albumin/Globulin Ratio 1.1 %; Alkaline Phosphatase 56 units/L (35-129); Anion Gap 19 mmol/L; Blood Urea Nitrogen 9 mg/dL (7-17); Calcium 8.6 mg/dL (8.4-10.2); Carbon Dioxide 19 mmol/L (22-30); Chloride 105.7 mmol/L (98-107); Glucose 197 mg/dL (65-100); Potassium 4.2 mmol/L (3.6-5.0); Sodium 139 mmol/L (137-145); Total Protein 6.4 g/dL (6.3-8.2)
[2017-02-17] MEDS ORDERED: PROVENTIL IH PRN (06:50)
[2017-02-17] MEDS ORDERED: NON-FORMULARY (Albuterol Sulfate [Albuterol 0.63% Nebs] 0.63 MG) IH PRN (09:37)
[2017-02-17 09:47] LABS: Basophils % (Manual) 0 % (0.0-1.8); Blastocytes % (Manual) 0 %; Eosinophils % (Manual) 0 % (0.0-4.3); Total Cells Counted Percent 2.5
[2017-02-17 09:48] LABS: Anisocytosis 1+; Diff Status Complete; Platelet Estimate Consistent w Auto
[2017-02-17 09:49] LABS: Platelet Count 255 K/mm3 (140-440)
[2017-02-17] MEDS ORDERED: ATROVENT IH SCH (10:00)
--- NOTE | 2017-02-17 10:18 | Progress Note ---
Assessment and Plan Assessment and plan: Acute gastroenteritis. On iv fluids, prn Zofran, start diet and advance as tolerated. CT Abdomen showed enteritis, ovarian cyst.. GI Physician consulted. Leukocytosis. There is worse today. WBC 21.6 from 17.3 yesterday. Continue IV antibiotics Asthma, stable. No shortness of breath. History of umbilical hernia repair. Left ovarian cyst. To follow` with Gyne as outpatient. DVT prophylaxis Full code status. History Interval history: Abdominal pain subsided, Vomiting and diarrhea improved Hospitalist Physical - Physical exam Narrative exam: Gen appearance: Not in acute distress, obese HEENT: Normocephalic, atraumatic Lungs : Clear to auscultation bilat, no crackles or wheeze Heart :S1-S2 regular, no murmurs, rubs or gallop Abdomen: soft, non tender, non-distended,normal bowel sounds Extremities:no edema no clubbing or cyanosis, Neuro: Awake, alert, oriented 3, no focal neurological signs Psych:calm, has schizophrenia - Constitutional Vitals: Temp Pulse Resp BP Pulse Ox 97.9 F 99 H 19 135/79 97 02/17/17 07:00 02/17/17 07:00 02/17/17 07:00 02/17/17 07:00 02/17/17 07:00 Results - Labs CBC & Chem 7: 02/17/17 04:43 02/17/17 04:43 Labs: Laboratory Last Values WBC 21.6 K/mm3 (4.5-11.0) H 02/17/17 04:43 RBC 4.68 M/mm3 (3.65-5.03) 02/17/17 04:43 Hgb 11.5 gm/dl (10.1-14.3) 02/17/17 04:43 Hct 37.4 % (30.3-42.9) 02/17/17 04:43 MCV 80 fl (79-97) 02/17/17 04:43 MCH 25 pg (28-32) L 02/17/17 04:43 MCHC 31 % (30-34) 02/17/17 04:43 RDW 17.7 % (13.2-15.2) H 02/17/17 04:43 Plt Count 255 K/mm3 (140-440) 02/17/17 04:43 Lymph % (Auto) 9.1 % (13.4-35.0) L 02/16/17 04:59 [place] % (Auto) 5.1 % (0.0-7.3) 02/16/17 04:59 Eos % (Auto) 1.6 % (0.0-4.3) 02/16/17 04:59 Baso % (Auto) 0.2 % (0.0-1.8) 02/16/17 04:59 Lymph # 1.6 K/mm3 (1.2-5.4) 02/16/17 04:59 [place] # 0.9 K/mm3 (0.0-0.8) H 02/16/17 04:59 Eos # 0.3 K/mm3 (0.0-0.4) 02/16/17 04:59 Baso # 0.0 K/mm3 (0.0-0.1) 02/16/17 04:59 Add Manual Diff Complete 02/17/17 04:43 Total Counted 200 02/17/17 04:43 Seg Neutrophils % Byproducts Operator 02/17/17 04:43 Seg Neuts % (Manual) 91.5 % (40.0-70.0) H 02/17/17 04:43 Band Neutrophils % 1.0 % 02/17/17 04:43 Lymphocytes % (Manual) 5.0 % (13.4-35.0) L 02/17/17 04:43 Reactive Lymphs % (Man) 0 % 02/17/17 04:43 Monocytes % (Manual) 2.5 % (0.0-7.3) 02/17/17 04:43 Eosinophils % (Manual) 0 % (0.0-4.3) 02/17/17 04:43 Basophils % (Manual) 0 % (0.0-1.8) 02/17/17 04:43 Metamyelocytes % 0 % 02/17/17 04:43 Myelocytes % 0 % 02/17/17 04:43 Promyelocytes % 0 % 02/17/17 04:43 Blast Cells % 0 % 02/17/17 04:43 Nucleated RBC % Not Reportable 02/17/17 04:43 Seg Neutrophils # 14.6 K/mm3 (1.8-7.7) H 02/16/17 04:59 Seg Neutrophils # Man 19.8 K/mm3 (1.8-7.7) H 02/17/17 04:43 Band Neutrophils # 0.2 K/mm3 02/17/17 04:43 Lymphocytes # (Manual) 1.1 K/mm3 (1.2-5.4) L 02/17/17 04:43 Abs React Lymphs (Man) 0.0 K/mm3 02/17/17 04:43 Monocytes # (Manual) 0.5 K/mm3 (0.0-0.8) 02/17/17 04:43 Eosinophils # (Manual) 0.0 K/mm3 (0.0-0.4) 02/17/17 04:43 Basophils # (Manual) 0.0 K/mm3 (0.0-0.1) 02/17/17 04:43 Metamyelocytes # 0.0 K/mm3 02/17/17 04:43 Myelocytes # 0.0 K/mm3 02/17/17 04:43 Promyelocytes # 0.0 K/mm3 02/17/17 04:43 Blast Cells # 0.0 K/mm3 02/17/17 04:43 WBC Morphology Not Reportable 02/17/17 04:43 Hypersegmented Neuts Not Reportable 02/17/17 04:43 Hyposegmented Neuts Not Reportable 02/17/17 04:43 Hypogranular Neuts Not Reportable 02/17/17 04:43 Smudge Cells Not Reportable 02/17/17 04:43 Toxic Granulation Not Reportable 02/17/17 04:43 Toxic Vacuolation Not Reportable 02/17/17 04:43 Dohle Bodies Not Reportable 02/17/17 04:43 Pelger-Huet Anomaly Not Reportable 02/17/17 04:43 John Rods Not Reportable 02/17/17 04:43 Platelet Estimate Consistent w auto 02/17/17 04:43 Clumped Platelets Not Reportable 02/17/17 04:43 Plt Clumps, EDTA Not Reportable 02/17/17 04:43 Large Platelets Not Reportable 02/17/17 04:43 Giant Platelets Not Reportable 02/17/17 04:43 Platelet Satelliting Not Reportable 02/17/17 04:43 Plt Morphology Comment Not Reportable 02/17/17 04:43 RBC Morphology Not Reportable 02/17/17 04:43 Dimorphic RBCs Not Reportable 02/17/17 04:43 Polychromasia Not Reportable 02/17/17 04:43 Hypochromasia Not Reportable 02/17/17 04:43 Poikilocytosis Not Reportable 02/17/17 04:43 Anisocytosis 1+ 02/17/17 04:43 Microcytosis Not Reportable 02/17/17 04:43 Macrocytosis Not Reportable 02/17/17 04:43 Spherocytes Not Reportable 02/17/17 04:43 Pappenheimer Bodies Not Reportable 02/17/17 04:43 Sickle Cells Not Reportable 02/17/17 04:43 Target Cells Not Reportable 02/17/17 04:43 Tear Drop Cells Not Reportable 02/17/17 04:43 Ovalocytes Not Reportable 02/17/17 04:43 Helmet Cells Not Reportable 02/17/17 04:43 Chan-Teachey Bodies Not Reportable 02/17/17 04:43 [place] Rings Not Reportable 02/17/17 04:43 [place] Cells Not Reportable 02/17/17 04:43 Bite Cells Not Reportable 02/17/17 04:43 Crenated Cell Not Reportable 02/17/17 04:43 Elliptocytes Not Reportable 02/17/17 04:43 Acanthocytes (Spur) Not Reportable 02/17/17 04:43 Rouleaux Not Reportable 02/17/17 04:43 Hemoglobin C Crystals Not Reportable 02/17/17 04:43 Schistocytes Not Reportable 02/17/17 04:43 Malaria parasites Not Reportable 02/17/17 04:43 Ronni Bodies Not Reportable 02/17/17 04:43 Hem Pathologist Commnt No 02/17/17 04:43 PT 12.5 Sec. (12.2-14.9) 02/16/17 08:59 INR 0.94 (0.87-1.13) 02/16/17 08:59 APTT 27.3 Sec. (24.2-36.6) 02/16/17 08:59 Sodium 139 mmol/L (137-145) 02/17/17 04:43 Potassium 4.2 mmol/L (3.6-5.0) 02/17/17 04:43 Chloride 105.7 mmol/L (98-107) 02/17/17 04:43 Carbon Dioxide 19 mmol/L (22-30) L 02/17/17 04:43 Anion Gap 19 mmol/L 02/17/17 04:43 BUN 9 mg/dL (7-17) 02/17/17 04:43 Creatinine 0.9 mg/dL (0.7-1.2) 02/17/17 04:43 Estimated GFR > 60 ml/min 02/17/17 04:43 BUN/Creatinine Ratio 10.00 % 02/17/17 04:43 Glucose 197 mg/dL (65-100) H 02/17/17 04:43 Lactic Acid 2.00 mmol/L (0.7-2.0) 02/16/17 08:59 Calcium 8.6 mg/dL (8.4-10.2) 02/17/17 04:43 Total Bilirubin 0.30 mg/dL (0.1-1.2) 02/17/17 04:43 AST 16 units/L (5-40) 02/17/17 04:43 ALT 16 units/L (7-56) 02/17/17 04:43 Alkaline Phosphatase 56 units/L (35-129) 02/17/17 04:43 Total Protein 6.4 g/dL (6.3-8.2) 02/17/17 04:43 Albumin 3.4 g/dL (3.9-5) L 02/17/17 04:43 Albumin/Globulin Ratio 1.1 % 02/17/17 04:43 Lipase 26 units/L (13-60) 02/16/17 04:59 Urine Color Yellow (Yellow) 02/16/17 08:31 Urine Turbidity Clear (Clear) 02/16/17 08:31 Urine pH 5.0 (5.0-7.0) 02/16/17 08:31 Ur Specific [place] 1.023 (1.003-1.030) 02/16/17 08:31 Urine Protein <15 mg/dl mg/dL (Negative) 02/16/17 08:31 Urine Glucose (UA) Neg mg/dL (Negative) 02/16/17 08:31 Urine Ketones Neg mg/dL (Negative) 02/16/17 08:31 Urine Blood Neg (Negative) 02/16/17 08:31 Urine Nitrite Neg (Negative) 02/16/17 08:31 Urine Bilirubin Neg (Negative) 02/16/17 08:31 Urine Urobilinogen < 2.0 mg/dL (<2.0) 02/16/17 08:31 Ur Leukocyte Esterase Neg (Negative) 02/16/17 08:31 Urine WBC (Auto) 3.0 /HPF (0.0-6.0) 02/16/17 08:31 Urine RBC (Auto) 2.0 /HPF (0.0-6.0) 02/16/17 08:31 U Epithel Cells (Auto) 3.0 /HPF (0-13.0) 02/16/17 08:31 Urine Mucus 3+ /HPF 02/16/17 08:31 Urine HCG, Qual Negative (Negative) 02/16/17 08:31 Blood Type O POSITIVE 02/16/17 10:30 Antibody Screen TNR 02/16/17 10:30 JOCELYN Antibody Screen Negative 02/16/17 10:30
--- NOTE | 2017-02-17 10:19 | History and Physical Report ---
CHIEF COMPLAINT: Abdominal pain of one day duration. HISTORY OF PRESENT ILLNESS: A 46-year-old female who comes into the office for abdominal pain of 1 day duration. The patient had a normal bowel movement. The patient has been having periumbilical pain. No vomiting. No guarded stools. No difficulty urinating. Pain is about 6 on a scale of 1-10, sharp in nature, and intermittent in nature. No exacerbating ____. The patient was diagnosed with umbilical hernia 2 weeks ago and at [facility] on CT examination. She was referred to Dr. Escobedo for further care at that time. The patient has asthma and sinus infections. No fever. No chills. CURRENT MEDICATIONS: Albuterol, Tylenol No. 3, Flonase and Advair nebulizers. ALLERGIES: DOXYCYCLINE, FAMOTIDINE, TORADOL, LATEX, NATURAL RUBBER, MORPHINE, SPIRIVA, ZITHROMAX, NSAID, AND PENICILLINS. PAST MEDICAL HISTORY: As mentioned asthma and sinus problems, abdominal hernia. PAST SURGICAL HISTORY: x1 and umbilical hernia repair and sinus surgeries. SOCIAL HISTORY: Does not smoke. No alcohol, no recreational drugs. FAMILY HISTORY: No significant family history. REVIEW OF SYSTEMS: Significant for abdominal pain and sinus congestion, otherwise review of systems is essentially negative. A 14-point review of systems is done. PHYSICAL EXAMINATION: GENERAL: Middle-aged female, cooperative during examination. VITAL SIGNS: Temperature 98, pulse is 93, blood pressure 125/100, respiratory rate is 20. HEENT: Unremarkable. Pupils are equal, round, and reactive. NECK: Supple. No lymphadenopathy. No thyromegaly. LUNGS: Clear to auscultation and percussion. Good air entry. CARDIOVASCULAR: S1, S2 heard. No gallop, no murmur, no rub. Apical impulse in left fifth intercostal space and midclavicular line. ABDOMEN: Soft and benign. No hepatosplenomegaly. No guarding, no rigidity. Hernial orifices are normal. EXTREMITIES: Good pedal pulses. No pedal edema. CENTRAL NERVOUS SYSTEM: Alert and oriented x4. Nonfocal exam. SKIN: Normal. LABORATORY DATA: Significant for white count of 17,300, glucose of 105, and electrolytes are otherwise normal. CT of the abdomen shows ileitis probably Crohn's, compared to CT of 2015 the changes are new. ASSESSMENT AND PLAN: 1. Acute abdominal pain, possible Crohn's GI consult requested. The patient also started on Zosyn for possible intraabdominal infection. Differential diagnosis of Crohn's versus intra-abdominal infection. 2. Asthma. Continue nebulizer treatments. 3. Allergic rhinitis. Continue on Flonase. 4. Deep venous thrombosis prophylaxis, Lovenox 40 mg subcutaneous daily. JOB# [id number] RHETT/SHRUTHI
[2017-02-17] MEDS: FLONASE NS SCH (14:10)
[2017-02-17] MEDS: D5NS 1,000 ML IV SCH (14:15)
--- NOTE | 2017-02-17 16:18 | Gastroenterology Consultation ---
History of Present Illness - Reason for Consult Consult date: 02/17/17 terminal ileitis Requesting physician: RAOUL JAMES - History of Present Illness Ms Young is a 46 yo aaf who presents with n/v and abdominal pain. Pt reports symptoms started ~3-4 days ago, initially with dull ache feeling in mid abdomen. This was associated with episodes of n/v. Her abdominal pain worsened yesterday after which she presented to the ED. CT scan showed terminal ileitis, and pt found to have elevated wbc count. She denies similar symptoms in the past. Currently reports improvement in abd pain, and no further n/v episodes. + bm's without bleeding, denies diarrhea. Denies sick contacts, NSAIDs, or family h/o IBD. Past History Past Medical History: GERD, other (asthma) Past Surgical History: , Other (ovarian cyst removal) Social history: no significant social history Family history: no significant family history Medications and Allergies Allergies Allergy/AdvReac Type Severity Reaction Status Date / Time doxycycline Allergy Rash Verified 12/11/15 13:48 famotidine [From Pepcid] Allergy Hives Verified 03/11/16 15:13 ketorolac tromethamine Allergy Anaphylaxis Verified 12/11/15 13:48 [From Toradol] Latex, Natural Rubber Allergy Angioedema Verified 12/11/15 13:48 morphine Allergy Shortness Verified 02/16/17 09:42 of Breath tiotropium bromide Allergy Anaphylaxis Verified 12/11/15 13:48 [From Spiriva with HandiHaler] azithromycin [From Zithromax] AdvReac Anaphylaxis Verified 12/11/15 13:48 NSAIDS (Non-Steroidal AdvReac Anaphylaxis Verified 12/11/15 13:48 Anti-Inflamma Penicillins AdvReac Hives Verified 02/09/16 22:11 Home Medications Medication Instructions Recorded Confirmed Last Taken Type Albuterol Sulfate [Albuterol 0.63% 0.63 mg IH TID PRN #1 box 11/02/16 02/16/17 Unknown Rx NEBS] Acetaminophen/Codeine [Tylenol #3] 1 tab PO Q6H PRN #8 tab 01/25/17 02/16/17 Unknown Rx Fluticasone [Flonase] 1 spray NS QDAY #1 bottle 02/06/17 02/16/17 Unknown Rx Ipratropium [Atrovent NEB] 0.5 mg IH Q4HR #2 ml 02/06/17 02/16/17 Unknown Rx Active Meds: Active Medications Acetaminophen (Tylenol) 650 mg PO Q4H PRN PRN Reason: Pain MILD(1-3)/Fever >100.5/NATION Albuterol (Proventil) 2.5 mg IH PRN PRN PRN Reason: Shortness Of Breath Albuterol/Ipratropium (Duoneb 0.5 Mg-3 Mg/3 Ml Soln) 1 ampul IH TIDRT [facility] Last Admin: 02/17/17 14:30 Dose: 1 ampul Bisacodyl (Dulcolax) 10 mg NC QDAY PRN PRN Reason: Constipation unrelieved by MOM Budesonide (Pulmicort) 0.5 mg IH Q12HRT [facility] Last Admin: 02/17/17 10:36 Dose: Not Given Enoxaparin Sodium (Lovenox) 40 mg SUB-Q QDAY@2200 [facility] Fluticasone Propionate (Flonase) 50 mcg NS QDAY [facility] Last Admin: 02/17/17 14:10 Dose: 50 mcg Hydromorphone HCl (Dilaudid) 1 mg IV Q3H PRN PRN Reason: Pain , Severe (7-10) Dextrose/Sodium Chloride (D5ns) 1,000 mls @ 100 mls/hr IV DIRECT [facility] Last Admin: 02/17/17 14:15 Dose: 100 mls/hr Piperacillin Sod/Tazobactam Sod (Zosyn/Ns 4.5gm/100ml) 4.5 gm in 100 mls @ 200 mls/hr IV Q8H [facility] PRN Reason: Protocol Last Admin: 02/17/17 14:10 Dose: 200 mls/hr Magnesium Hydroxide (Milk Of Magnesia) 30 ml PO Q4H PRN PRN Reason: Constipation Ondansetron HCl (Zofran) 4 mg IV Q8H PRN PRN Reason: N/V unrelieved by Reglan Review of Systems - Review of Systems All systems: negative (per HPI) Exam - Constitutional Vital Signs: Temp Pulse Resp BP Pulse Ox 97.9 F 98 H 18 135/79 97 02/17/17 07:00 02/17/17 14:20 02/17/17 14:20 02/17/17 07:00 02/17/17 07:00 General appearance: no acute distress - EENT Eyes: PERRL, EOM intact ENT: hearing intact, clear oral mucosa - Neck Neck: supple, normal ROM - Respiratory Respiratory effort: normal Respiratory: bilateral: CTA - Cardiovascular Rhythm: regular Heart Sounds: Present: S1 & S2 Extremities: No edema - Gastrointestinal General gastrointestinal: Present: soft, non-tender, non-distended, normal bowel sounds - Integumentary Integumentary: Present: clear, warm - Musculoskeletal Musculoskeletal: normal - Neurologic Neurological: alert and oriented x3 - Psychiatric Psychiatric: appropriate mood/affect - Labs CBC & Chem 7: 02/17/17 04:43 02/17/17 04:43 Lab Results: Laboratory Results - last 24 hr 02/17/17 02/17/17 04:43 04:43 WBC 21.6 H RBC 4.68 Hgb 11.5 Hct 37.4 MCV 80 MCH 25 L MCHC 31 RDW 17.7 H Plt Count 255 Add Manual Diff Complete Total Counted 200 Seg Neutrophils % Sewer Line Photo Inspector Seg Neuts % (Manual) 91.5 H Band Neutrophils % 1.0 Lymphocytes % (Manual) 5.0 L Reactive Lymphs % (Man) 0 Monocytes % (Manual) 2.5 Eosinophils % (Manual) 0 Basophils % (Manual) 0 Metamyelocytes % 0 Myelocytes % 0 Promyelocytes % 0 Blast Cells % 0 Nucleated RBC % Not Reportable Seg Neutrophils # Man 19.8 H Band Neutrophils # 0.2 Lymphocytes # (Manual) 1.1 L Abs React Lymphs (Man) 0.0 Monocytes # (Manual) 0.5 Eosinophils # (Manual) 0.0 Basophils # (Manual) 0.0 Metamyelocytes # 0.0 Myelocytes # 0.0 Promyelocytes # 0.0 Blast Cells # 0.0 WBC Morphology Not Reportable Hypersegmented Neuts Not Reportable Hyposegmented Neuts Not Reportable Hypogranular Neuts Not Reportable Smudge Cells Not Reportable Toxic Granulation Not Reportable Toxic Vacuolation Not Reportable Dohle Bodies Not Reportable Pelger-Huet Anomaly Not Reportable Ojhn Rods Not Reportable Platelet Estimate Consistent w auto Clumped Platelets Not Reportable Plt Clumps, EDTA Not Reportable Large Platelets Not Reportable Giant Platelets Not Reportable Platelet Satelliting Not Reportable Plt Morphology Comment Not Reportable RBC Morphology Not Reportable Dimorphic RBCs Not Reportable Polychromasia Not Reportable Hypochromasia Not Reportable Poikilocytosis Not Reportable Anisocytosis 1+ Microcytosis Not Reportable Macrocytosis Not Reportable Spherocytes Not Reportable Pappenheimer Bodies Not Reportable Sickle Cells Not Reportable Target Cells Not Reportable Tear Drop Cells Not Reportable Ovalocytes Not Reportable Helmet Cells Not Reportable [place] Bodies Not Reportable [place] Rings Not Reportable [place]elam Cells Not Reportable Bite Cells Not Reportable Crenated Cell Not Reportable Elliptocytes Not Reportable Acanthocytes (Spur) Not Reportable Rouleaux Not Reportable Hemoglobin C Crystals Not Reportable Schistocytes Not Reportable Malaria parasites Not Reportable Ronni Bodies Not Reportable Hem Pathologist Commnt No Sodium 139 Potassium 4.2 Chloride 105.7 Carbon Dioxide 19 L Anion Gap 19 BUN 9 Creatinine 0.9 Estimated GFR > 60 BUN/Creatinine Ratio 10.00 Glucose 197 H Calcium 8.6 Total Bilirubin 0.30 AST 16 ALT 16 Alkaline Phosphatase 56 Total Protein 6.4 Albumin 3.4 L Albumin/Globulin Ratio 1.1 Assessment and Plan 1. Abdominal pain - CT with findings of terminal ileitis. This may be related to infectious etiology vs IBD, however also concerned about possible mesenteric ischemia given description of pain, benign abd exam, increasing wbc and low bicarb -repeat lactate level -CTA of abdomen -will check inflammatory markers -on empiric abx -further recommendations following CTA and clinical course
[2017-02-17] MEDS ORDERED: NACL ONE (16:25)
[2017-02-17] MEDS ORDERED: NACL 0.9% 1000 ML 1,000 ML IV SCH (17:00)
--- NOTE | 2017-02-17 20:00 | Cat Scan Report ---
FINAL REPORT EXAM: CT ANGIO ABDOMEN PELVIS HISTORY: rule out mesenteric ischemia TECHNIQUE: CT images are acquired through the Abdomen and Pelvis in late arterial phase following intravenous administration of 100 cc Omnipaque 350 contrast. Transaxial, coronal and sagittal reformations are provided. PRIORS: 02/16/2017 FINDINGS: Partially visualized intrathoracic contents are unremarkable. The liver, gallbladder, pancreas, spleen, and adrenal glands are unremarkable. Kidneys show no worrisome lesions, hydronephrosis, or calculi. Urinary bladder is unremarkable. Positive enteric contrast is present within the colon from examination performed on 02/16/2017. There is no aortic wall abnormality, significant atherosclerosis, stenosis or dilatation. Normal caliber mesenteric vasculature, which is opacified to the same degree as the aorta on this late arterial phase examination. Small and large bowel are normal in caliber. Appendix is normal. No free air, free fluid, or lymphadenopathy identified. No pericolonic stranding. No wall thickening seen in the small bowel or colon. Aorta is normal in course and caliber. Anteverted uterus. Small volume of free fluid in the pelvis is likely physiologic. Rectus diastasis. Old anterior abdominal surgical scar. Superficial soft tissues are otherwise unremarkable. No acute or aggressive appearing skeletal findings. IMPRESSION: No CT findings to support diagnosis of mesenteric ischemia. Small bowel and colonic findings seen on 02/16/2017 are significantly decreased in conspicuity.
[2017-02-17] MEDS ORDERED: LOVENOX SUB-Q SCH (22:00)
[2017-02-18] MEDS: ZOSYN/NS 4.5GM/100ML 4.5 GM/100 ML VIAL IV SCH (05:48)
[2017-02-18 06:34] LABS: Hematocrit 34.7 % (30.3-42.9); Hemoglobin 10.7 gm/dl (10.1-14.3); Mean Corpuscular HGB Conc 31 % (30-34); Mean Corpuscular Volume 80 fl (79-97); Platelet Count 239 K/mm3 (140-440); Red Blood Count 4.35 M/mm3 (3.65-5.03); White Blood Count 14.6 K/mm3 (4.5-11.0)
[2017-02-18 06:37] LABS: Mean Corpuscular Hemoglobin 25 pg (28-32)
[2017-02-18 06:59] LABS: Anion Gap 16 mmol/L; BUN/Creatinine Ratio 14.44; Blood Urea Nitrogen 13 mg/dL (7-17); Calcium 8.3 mg/dL (8.4-10.2); Carbon Dioxide 21 mmol/L (22-30); Glucose 86 mg/dL (65-100); Potassium 3.6 mmol/L (3.6-5.0); Sodium 140 mmol/L (137-145)
[2017-02-18 07:28] VITALS: BP 101/56
[2017-02-18] MEDS: PULMICORT IH SCH (07:47)
[2017-02-18] MEDS: DUONEB 0.5 MG-3 MG/3 ML SOLN IH SCH ×2 (07:47→13:30)
--- NOTE | 2017-02-18 08:49 | Discharge Summary ---
Providers - Providers Date of Admission: 02/16/17 15:25 Date of discharge: 02/18/17 Attending physician: LINDSAY BONILLA Primary care physician: SHON BRUNO Hospitalization Condition: Fair Disposition: DISCHARGED TO HOME OR SELFCARE - Discharge Diagnoses (1) Terminal ileitis Status: Acute Qualifiers: Digestive disease complication type: D (2) Acute infective gastroenteritis Status: Acute (3) Asthma Status: Chronic Qualifiers: Asthma severity: mild intermittent Asthma complication type: A (4) Left ovarian cyst Status: Acute Core Measure Documentation - Palliative Care Palliative Care/ Comfort Measures: Not Applicable Exam - Constitutional Vitals: Temp Pulse Resp BP Pulse Ox 98.2 F 70 18 101/56 97 02/18/17 07:25 02/18/17 07:25 02/18/17 07:25 02/18/17 07:25 02/18/17 07:25 Plan Activity: no restrictions Diet: low fat, low cholesterol Additional Instructions: 1.Follow up with PCP, Dr. Shon Bruno in 1 week. 2.Follow up with BONIFACIO Max in 1 week. 3.Follow up with Engine Lathe Tender for left ovarian cyst in 1 week Follow up with: SHON BRUNO MD [Primary Care Provider] - 3-5 Days Prescriptions: Ciprofloxacin HCl [Ciprofloxacin TAB] 500 mg PO BID #10 tablet
[2017-02-18] MEDS: FLONASE NS SCH (12:42)
== END 2017-02-18 15:15 | disposition home or self-care (01) | DRG 386 ==
LOC: ED 04:42 → 3A 15:25
PROVIDERS: ADMIT Internal Medicine; ATTEND Internal Medicine
DX: K50.00 Crohn's disease of small intestine without complications (principal); J45.901 Unspecified asthma with (acute) exacerbation; A09 Infectious gastroenteritis and colitis, unspecified; D72.829 Elevated white blood cell count, unspecified; N83.202 Unspecified ovarian cyst, left side; K21.9 Gastro-esophageal reflux disease without esophagitis; J30.9 Allergic rhinitis, unspecified; Z88.1 Allergy status to other antibiotic agents; Z88.5 Allergy status to narcotic agent; Z88.0 Allergy status to penicillin; Z91.040 Latex allergy status
CPT/HCPCS: 36415; 71010; 74174; 74177; 80048; 80053; 81001; 81025; 82140; 83690; 85007; 85025; 85027; 85610; 85652; 85730; 86140; 86850; 86900; 86901; 87040; 87086; 94640; 96365; 96375; C9113; J0692; J1170; J1650; J2405; J2543; J2930; J7030; J7042; Q9967

== ENCOUNTER 2017-03-01 16:15 | Emergency (ER) | payer MEDICARE ==
[2017-03-01] MEDS ORDERED: DUONEB 0.5 MG-3 MG/3 ML SOLN IH ONE ×2 (16:44→16:47)
[2017-03-01] MEDS ORDERED: ATROVENT IH ONE ×2 (17:36→23:31)
[2017-03-01] MEDS ORDERED: PROVENTIL IH ONE ×2 (17:36→23:31)
[2017-03-01] MEDS ORDERED: NACL 0.9% 1000 ML 1,000 ML IV ONE (17:45)
[2017-03-01] MEDS ORDERED: MAGNESIUM SULFATE 2GM/50ML 2 GM/50 ML BAG IV ONE (17:49)
[2017-03-01] MEDS ORDERED: TYLENOL #3 PO ONE (17:58)
--- NOTE | 2017-03-01 17:59 | Emergency Department Report ---
ED General Adult HPI - General Chief complaint: Adult Asthma Stated complaint: SILVIANO Time Seen by Provider: 03/01/17 17:38 Source: patient, EMS, RN notes reviewed, old records reviewed Mode of arrival: Stretcher Limitations: Physical Limitation - History of Present Illness Initial comments: This is a 46-year-old female. I have evaluated her in the past. Primary care doctor is Dr. Hiwot Oneal. She thinks her supply chain technician is Dr. Urban Past medical history includes asthma, multiple lifetime hospitalizations, 3 intubations, obesity, sinusitis, chronic hernia problems. Patient recently hospitalized for intra-abdominal infection, and is now presenting today with chest tightness, wheezing, shortness of breath. The patient describes "chest heaviness" which is somewhat to prior episodes of asthma exacerbation. There is no diaphoresis. There is no vomiting. The patient indicates that she can take Tylenol No. 3. She is coughing, wheezing, and describes "sinus drainage." She indicates the symptoms are similar to prior episodes of asthma exacerbations. -: Gradual, hour(s) (24) Location: chest Severity scale (0 -10): 0 Quality: aching Consistency: intermittent Improves with: rest Worsens with: movement Associated Symptoms: chest pain, cough, loss of appetite, shortness of breath, weakness - Related Data Previous Rx's Medication Instructions Recorded Last Taken Type Albuterol Sulfate [Albuterol 0.63% 0.63 mg IH TID PRN #1 box 11/02/16 03/01/17 Rx NEBS] Acetaminophen/Codeine [Tylenol 1 tab PO Q6H PRN #8 tab 01/25/17 03/01/17 Rx /Codeine # 3 tab] Fluticasone [Flonase] 1 spray NS QDAY #1 bottle 02/06/17 03/01/17 Rx Ipratropium [Atrovent NEB] 0.5 mg IH Q4HR #2 ml 02/06/17 03/01/17 Rx Ciprofloxacin HCl [Ciprofloxacin 500 mg PO BID #10 tablet 02/18/17 03/01/17 Rx TAB] Albuterol Sulfate [Albuterol 0.63% 0.63 mg IH Q4HR PRN #2 ml 03/02/17 Unknown Rx NEBS] Albuterol Sulfate [Proair 90 mcg IH Q4HR PRN #2 aer.pow.ba 03/02/17 Unknown Rx Respiclick] Ipratropium [place] [Atrovent Hfa] 12.9 gm IH Q4HR #2 hfa.aer.ad 03/02/17 Unknown Rx Ipratropium [Atrovent NEB] 0.5 mg IH Q4HR #2 ml 03/02/17 Unknown Rx predniSONE [Deltasone] 40 mg PO QDAY #8 tab 03/02/17 Unknown Rx Allergies Allergy/AdvReac Type Severity Reaction Status Date / Time doxycycline Allergy Rash Verified 12/11/15 13:48 famotidine [From Pepcid] Allergy Hives Verified 03/11/16 15:13 ketorolac tromethamine Allergy Anaphylaxis Verified 12/11/15 13:48 [From Toradol] Latex, Natural Rubber Allergy Angioedema Verified 12/11/15 13:48 morphine Allergy Shortness Verified 02/16/17 09:42 of Breath tiotropium bromide Allergy Anaphylaxis Verified 12/11/15 13:48 [From Spiriva with HandiHaler] azithromycin [From Zithromax] AdvReac Anaphylaxis Verified 12/11/15 13:48 NSAIDS (Non-Steroidal AdvReac Anaphylaxis Verified 12/11/15 13:48 Anti-Inflamma Penicillins AdvReac Hives Verified 02/09/16 22:11 ED Review of Systems ROS: Stated complaint: SILVIANO Other details as noted in HPI Constitutional: denies: fever Eyes: denies: vision change ENT: denies: epistaxis Respiratory: shortness of breath, wheezing Cardiovascular: dyspnea on exertion Gastrointestinal: denies: vomiting Genitourinary: as per HPI Musculoskeletal: as per HPI Skin: as per HPI Neurological: as per HPI Psychiatric: as per HPI ED Past Medical Hx - Past Medical History Hx Hypertension: No Hx Heart Attack/AMI: No Hx Congestive Heart Failure: No Hx Diabetes: No Hx Deep Vein Thrombosis: No Hx Pulmonary Embolism: No Hx GERD: Yes Hx Liver Disease: No Hx Renal Disease: No Hx Sickle Cell Disease: No Hx Arthritis: No Hx Seizures: No Hx Kidney Stones: No Hx Asthma: Yes Hx COPD: No Hx Tuberculosis: No Hx Dementia: No Hx HIV: No Additional medical history: sinus problems / ABD HERNIA. - Surgical History Hx Coronary Stent: No Hx Open Heart Surgery: No Hx Pacemaker: No Hx Internal Defibrillator: No Hx Cholecystectomy: No Hx Appendectomy: No Hx Breast Surgery: No Additional Surgical History: x4, umbilical hernia repair, sinus surgeries, D&C - Social History Smoking Status: Never Smoker - Medications Home Medications: Home Medications Medication Instructions Recorded Confirmed Last Taken Type Albuterol Sulfate [Albuterol 0.63% 0.63 mg IH TID PRN #1 box 11/02/16 03/01/17 03/01/17 Rx NEBS] Acetaminophen/Codeine [Tylenol 1 tab PO Q6H PRN #8 tab 01/25/17 03/01/17 Rx /Codeine # 3 tab] Fluticasone [Flonase] 1 spray NS QDAY #1 bottle 02/06/17 03/01/17 03/01/17 Rx Ipratropium [Atrovent NEB] 0.5 mg IH Q4HR #2 ml 02/06/17 03/01/17 03/01/17 Rx Ciprofloxacin HCl [Ciprofloxacin 500 mg PO BID #10 tablet 02/18/17 03/01/17 Rx TAB] Albuterol Sulfate [Albuterol 0.63% 0.63 mg IH Q4HR PRN #2 ml 03/02/17 Unknown Rx NEBS] Albuterol Sulfate [Proair 90 mcg IH Q4HR PRN #2 aer.pow.ba 03/02/17 Unknown Rx Respiclick] Ipratropium [place] [Atrovent Hfa] 12.9 gm IH Q4HR #2 hfa.aer.ad 03/02/17 Unknown Rx Ipratropium [Atrovent NEB] 0.5 mg IH Q4HR #2 ml 03/02/17 Unknown Rx predniSONE [Deltasone] 40 mg PO QDAY #8 tab 03/02/17 Unknown Rx ED Physical Exam - General Limitations: Physical Limitation General appearance: alert, in no apparent distress - Head Head exam: Present: atraumatic, normocephalic - Eye Eye exam: Present: normal appearance, EOMI. Absent: nystagmus - ENT ENT exam: Present: normal exam, normal orophraynx, mucous membranes moist, normal external ear exam - Neck Neck exam: Present: normal inspection, full ROM. Absent: tenderness, meningismus - Respiratory Respiratory exam: Present: respiratory distress, wheezes, rhonchi - Cardiovascular Cardiovascular Exam: Present: regular rate, normal rhythm, normal heart sounds. Absent: bradycardia, tachycardia, irregular rhythm, systolic murmur, diastolic murmur, rubs, gallop - GI/Abdominal GI/Abdominal exam: Present: soft, normal bowel sounds. Absent: distended, tenderness, guarding, rebound, rigid, pulsatile mass - Extremities Exam Extremities exam: Present: normal inspection, full ROM, normal capillary refill. Absent: pedal edema, joint swelling, calf tenderness - Back Exam Back exam: Present: normal inspection, full ROM. Absent: tenderness, CVA tenderness (R), CVA tenderness (L), muscle spasm, paraspinal tenderness, vertebral tenderness - Neurological Exam Neurological exam: Present: alert, oriented X3, other (Extraocular movements intact. Tongue midline. No facial droop. Facial sensation intact to light touch in the V1, V2, V3 distribution bilaterally. 5 and 5 strength in 4 extremities.. Sensation is intact to light touch in 4 extremities.). Absent: motor sensory deficit - Psychiatric Psychiatric exam: Present: normal affect, normal mood - Skin Skin exam: Present: warm, dry, intact, normal color. Absent: rash ED Course Vital Signs 03/01/17 03/01/17 03/01/17 16:37 18:19 23:29 Temperature 98.2 F 98.7 F Pulse Rate 89 101 H 102 H Pulse Rate [ Anterior Bilateral] Respiratory 22 20 13 Rate Respiratory Rate [Anterior Bilateral] Blood Pressure 124/66 146/76 118/70 [Left] O2 Sat by Pulse 94 100 92 Oximetry 03/01/17 03/02/17 03/02/17 23:46 00:25 00:34 Temperature 98.3 F Pulse Rate 72 Pulse Rate [ 91 H 112 H Anterior Bilateral] Respiratory 14 Rate Respiratory 18 18 Rate [Anterior Bilateral] Blood Pressure 118/70 [Left] O2 Sat by Pulse 93 Oximetry - Reevaluation(s) Reevaluation #1: 03/01/17 18:36 differential diagnosis: Asthma exacerbation, pneumonia, acute coronary syndrome, pulmonary embolus Assessment and plan: 46-year-old female with cough, wheezing, shortness of breath, chest tightness, recent hospital admission. Low risk by well's criteria , perc negative, we'll send d-dimer. Patient will be treated with albuterol, Atrovent, magnesium,. Laboratory studies, x-ray of the chest pending. EKG not consistent with STEMI. 03/04/17 18:23 Reevaluation #2: 03/01/17 22:36 feeling improved. Nuclear medicine study is pending. Able to ambulate without significant symptoms. Saturating at 92-93%, I would expect some VQ mismatch. Reevaluation #3: 03/02/17 00:53 I reassessed the patient again. She is resting comfortably. Saturating 95-97%. Low-grade tachycardia, most likely secondary to albuterol. I have gone back to reevaluate this patient multiple times. She appears quite comfortable. She is listening to music on her smart phone device, in no distress. nuclear Medicine study is low probability. Able to walk without desaturation. Low risk by heart score, low risk by kaity score, Tyra instructed the patient is to follow up with outpatient primary care doctor/supply chain technician. She will be discharged at this time. Return precautions are extensively reviewed. Patient had a negative nuclear stress test June 2016. 03/02/17 00:55 03/04/17 18:22 03/04/17 18:22 ED Medical Decision Making - Lab Data Result diagrams: 03/01/17 18:22 03/01/17 18:22 Vital Signs 03/01/17 03/01/17 16:37 18:19 Temperature 98.2 F Pulse Rate 89 101 H Respiratory 22 20 Rate Blood Pressure 124/66 146/76 [Left] O2 Sat by Pulse 94 100 Oximetry Lab Results 03/01/17 Range/Units 18:12 POC ABG pH 7.360 (7.35-7.45) POC ABG pCO2 39.2 (35-45) POC ABG pO2 114 H (80-105) POC ABG HCO3 22.1 POC ABG Total CO2 23 POC ABG O2 Sat 98 POC ABG Base Excess -3 FiO2 30 % - EKG Data -: EKG Interpreted by Me EKG shows normal: sinus rhythm, axis, intervals, QRS complexes, ST-T waves Rate: normal - EKG Data Interpretation: unchanged when compared t (02/06/2017) Critical care attestation.: If time is entered above; I have spent that time in minutes in the direct care of this critically ill patient, excluding procedure time. ED Disposition Clinical Impression: Shortness of breath, Asthma exacerbation Disposition: DISCHARGED TO HOME OR SELFCARE Is pt being admited?: No Does the pt Need Aspirin: No Condition: Stable Instructions: Asthma (ED) Additional Instructions: Take the medications as directed. Follow up with an outpatient primary care doctor, or supply chain technician within the next week. 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 Return to the ER right away with new pain, worsening pain , migration of pain, fevers, chills, chest pain, shortness of breath, confusion , intractable nausea or vomiting, inability to tolerate liquid feeds. Prescriptions: Albuterol Sulfate [Albuterol 0.63% NEBS] 0.63 mg IH Q4HR PRN #2 ml PRN Reason: Wheezing Albuterol Sulfate [Proair Respiclick] 90 mcg IH Q4HR PRN #2 aer.pow.ba PRN Reason: Wheezing Ipratropium [Atrovent NEB] 0.5 mg IH Q4HR #2 ml Ipratropium [place] [Atrovent Hfa] 12.9 gm IH Q4HR #2 hfa.aer.ad predniSONE [Deltasone] 40 mg PO QDAY #8 tab Referrals: PRIMARY CARE, [Primary Care Provider] - 3-5 Days GINNY URBAN MD [Staff Physician] - 3-5 Days KARTHIK VILLAVICENCIO MD [Staff Physician] - 3-5 Days BEATRIS HYATT MD [Staff Physician] - 3-5 Days HIWOT ONEAL MD [Staff Physician] - 3-5 Days
[2017-03-01 18:18] LABS: ISTAT Base Excess -3; ISTAT HCO3 22.1; ISTAT PCO2 39.2 (35-45); ISTAT PO2 114 (80-105); ISTAT SO2 98; ISTAT TCO2 23
[2017-03-01 18:43] LABS: Hematocrit 38.1 % (30.3-42.9); Hemoglobin 11.9 gm/dl (10.1-14.3); Mean Corpuscular HGB Conc 31 % (30-34); Mean Corpuscular Volume 79 fl (79-97); Platelet Count 252 K/mm3 (140-440); Red Cell Distribution Width 17.6 % (13.2-15.2); White Blood Count 13.8 K/mm3 (4.5-11.0)
[2017-03-01 18:45] LABS: Mean Corpuscular Hemoglobin 25 pg (28-32)
[2017-03-01 18:52] LABS: INR 1.08 (0.87-1.13)
[2017-03-01 18:57] LABS: Anion Gap 18 mmol/L; Blood Urea Nitrogen 8 mg/dL (7-17); Calcium 8.6 mg/dL (8.4-10.2); Carbon Dioxide 21 mmol/L (22-30); Chloride 105.6 mmol/L (98-107); Glucose 132 mg/dL (65-100); Potassium 3.9 mmol/L (3.6-5.0); Sodium 141 mmol/L (137-145)
[2017-03-01] MEDS ORDERED: NACL ONE (19:39)
[2017-03-01 23:29] VITALS: BP 118/70
--- NOTE | 2017-03-01 23:55 | Nuclear Medicine Report ---
FINAL REPORT PROCEDURE: NM LUNG SCAN PERF/VENT TECHNIQUE: Five mCi Tc-99m MAA was injected IV for pulmonary perfusion imaging in multiple projections. Fifteen mCi Xenon 133 gas was inhaled for pulmonary ventilation imaging in multiple projections. Injection site: RIGHT antecubital fossa. HISTORY: cp sob COMPARISON: Chest radiograph of the same date FINDINGS: Perfusion: No defects . Ventilation: No defects . IMPRESSION: Normal Examination
--- NOTE | 2017-03-05 08:54 | XRay Report ---
AP CHEST: HISTORY: Dyspnea AP view of the chest demonstrates a normal mediastinal and cardiac contour with clear lungs and normal bony and soft tissue structures. IMPRESSION: Unremarkable AP chest.
== END 2017-03-02 01:21 | disposition home or self-care (01) ==
LOC: ED 16:15
DX: J45.901 Unspecified asthma with (acute) exacerbation (principal); K21.9 Gastro-esophageal reflux disease without esophagitis
CPT/HCPCS: 36415; 71010; 78582; 80048; 82803; 83735; 83880; 84484; 84702; 85027; 85379; 85610; 93005; 93010; 94640; 94644; 96365; 99285; A9540; A9558; J3475; J7030

== ENCOUNTER 2017-03-23 21:50 | Emergency (ER) | payer MEDICARE ==
--- NOTE | 2017-03-24 01:48 | Emergency Department Report ---
ED General Adult HPI - General Chief complaint: Urogenital-Female Stated complaint: PAIN IN BOTH BREAST Time Seen by Provider: 03/24/17 01:43 Source: patient Mode of arrival: Ambulatory Limitations: No Limitations - History of Present Illness Initial comments: 46-year-old female past medical history asthma, GERD, multiple surgeries, multiple medical allergies presents with complaint of bilateral breast discomfort since this morning. Last menstrual period was 3 weeks ago as per patient. Denies any trauma to breasts. Denies any chest pain. States she noticed a small bump on her left lower breast region. States her last mammogram was over a year ago and she has another mammogram scheduled next month. States last mammogram was normal. States she does have a history of thyroid cancer. Currently in remission. Denies any fever, chills, shortness of breath Onset/Timin -: days(s) Location: chest (left breast) Severity scale (0 -10): 5 Quality: aching Consistency: intermittent - Related Data Previous Rx's Medication Instructions Recorded Last Taken Type Albuterol Sulfate [Albuterol 0.63% 0.63 mg IH TID PRN #1 box 11/02/16 03/01/17 Rx NEBS] Acetaminophen/Codeine [Tylenol 1 tab PO Q6H PRN #8 tab 01/25/17 03/01/17 Rx /Codeine # 3 tab] Fluticasone [Flonase] 1 spray NS QDAY #1 bottle 02/06/17 03/01/17 Rx Ipratropium [Atrovent NEB] 0.5 mg IH Q4HR #2 ml 02/06/17 03/01/17 Rx Ciprofloxacin HCl [Ciprofloxacin 500 mg PO BID #10 tablet 02/18/17 03/01/17 Rx TAB] Albuterol Sulfate [Albuterol 0.63% 0.63 mg IH Q4HR PRN #2 ml 03/02/17 Unknown Rx NEBS] Albuterol Sulfate [Proair 90 mcg IH Q4HR PRN #2 aer.pow.ba 03/02/17 Unknown Rx Respiclick] Ipratropium [place] [Atrovent Hfa] 12.9 gm IH Q4HR #2 hfa.aer.ad 03/02/17 Unknown Rx Ipratropium [Atrovent NEB] 0.5 mg IH Q4HR #2 ml 03/02/17 Unknown Rx predniSONE [Deltasone] 40 mg PO QDAY #8 tab 03/02/17 Unknown Rx Acetaminophen [Acetaminophen TAB] 500 mg PO Q6HR PRN #30 tablet 03/24/17 Unknown Rx Clindamycin [Clindamycin CAP] 300 mg PO Q6H #28 capsule 03/24/17 Unknown Rx Allergies Allergy/AdvReac Type Severity Reaction Status Date / Time doxycycline Allergy Rash Verified 12/11/15 13:48 famotidine [From Pepcid] Allergy Hives Verified 03/11/16 15:13 ketorolac tromethamine Allergy Anaphylaxis Verified 12/11/15 13:48 [From Toradol] Latex, Natural Rubber Allergy Angioedema Verified 12/11/15 13:48 morphine Allergy Shortness Verified 02/16/17 09:42 of Breath tiotropium bromide Allergy Anaphylaxis Verified 12/11/15 13:48 [From Spiriva with HandiHaler] azithromycin [From Zithromax] AdvReac Anaphylaxis Verified 12/11/15 13:48 NSAIDS (Non-Steroidal AdvReac Anaphylaxis Verified 12/11/15 13:48 Anti-Inflamma Penicillins AdvReac Hives Verified 02/09/16 22:11 ED Review of Systems ROS: Stated complaint: PAIN IN BOTH BREAST Other details as noted in HPI Constitutional: denies: chills, fever Eyes: denies: eye pain, eye discharge, vision change ENT: denies: ear pain, throat pain Respiratory: denies: cough, shortness of breath, wheezing Cardiovascular: denies: chest pain, palpitations Endocrine: no symptoms reported Gastrointestinal: denies: abdominal pain, nausea, diarrhea Genitourinary: denies: urgency, dysuria, discharge Musculoskeletal: denies: back pain, joint swelling, arthralgia Skin: denies: rash, lesions Neurological: denies: headache, weakness, paresthesias Psychiatric: denies: anxiety, depression Hematological/Lymphatic: denies: easy bleeding, easy bruising ED Past Medical Hx - Past Medical History Hx Hypertension: No Hx Heart Attack/AMI: No Hx Congestive Heart Failure: No Hx Diabetes: No Hx Deep Vein Thrombosis: No Hx Pulmonary Embolism: No Hx GERD: Yes Hx Liver Disease: No Hx Renal Disease: No Hx of Cancer: Yes (Thyroid) Hx Sickle Cell Disease: No Hx Arthritis: No Hx Seizures: No Hx Kidney Stones: No Hx Asthma: Yes Hx COPD: No Hx Tuberculosis: No Hx Dementia: No Hx HIV: No Additional medical history: sinus problems / ABD HERNIA. - Surgical History Hx Coronary Stent: No Hx Open Heart Surgery: No Hx Pacemaker: No Hx Internal Defibrillator: No Hx Cholecystectomy: No Hx Appendectomy: No Hx Breast Surgery: No Additional Surgical History: x4, umbilical hernia repair, sinus surgeries, D&C - Social History Smoking Status: Never Smoker Substance Use Type: None - Medications Home Medications: Home Medications Medication Instructions Recorded Confirmed Last Taken Type Albuterol Sulfate [Albuterol 0.63% 0.63 mg IH TID PRN #1 box 11/02/16 03/01/17 03/01/17 Rx NEBS] Acetaminophen/Codeine [Tylenol 1 tab PO Q6H PRN #8 tab 01/25/17 03/01/17 Rx /Codeine # 3 tab] Fluticasone [Flonase] 1 spray NS QDAY #1 bottle 02/06/17 03/01/17 03/01/17 Rx Ipratropium [Atrovent NEB] 0.5 mg IH Q4HR #2 ml 02/06/17 03/01/17 03/01/17 Rx Ciprofloxacin HCl [Ciprofloxacin 500 mg PO BID #10 tablet 02/18/17 03/01/17 Rx TAB] Albuterol Sulfate [Albuterol 0.63% 0.63 mg IH Q4HR PRN #2 ml 03/02/17 Unknown Rx NEBS] Albuterol Sulfate [Proair 90 mcg IH Q4HR PRN #2 aer.pow.ba 03/02/17 Unknown Rx Respiclick] Ipratropium [place] [Atrovent Hfa] 12.9 gm IH Q4HR #2 hfa.aer.ad 03/02/17 Unknown Rx Ipratropium [Atrovent NEB] 0.5 mg IH Q4HR #2 ml 03/02/17 Unknown Rx predniSONE [Deltasone] 40 mg PO QDAY #8 tab 03/02/17 Unknown Rx Acetaminophen [Acetaminophen TAB] 500 mg PO Q6HR PRN #30 tablet 03/24/17 Unknown Rx Clindamycin [Clindamycin CAP] 300 mg PO Q6H #28 capsule 06/18/17 Unknown Rx ED Physical Exam - General Limitations: No Limitations General appearance: alert, in no apparent distress - Head Head exam: Present: atraumatic, normocephalic - Eye Eye exam: Present: normal appearance, PERRL, EOMI - ENT ENT exam: Present: mucous membranes moist - Neck Neck exam: Present: normal inspection - Respiratory Respiratory exam: Present: normal lung sounds bilaterally, other (small 1.5cm abscess below left breast 3rd quadrantm no palpable breast masses on breast exam b/l otherwise, no palpable ro visible lesions in axialla or tail of breast b/l). Absent: respiratory distress - Cardiovascular Cardiovascular Exam: Present: regular rate, normal rhythm. Absent: systolic murmur, diastolic murmur, rubs, gallop - GI/Abdominal GI/Abdominal exam: Present: soft, normal bowel sounds - Extremities Exam Extremities exam: Present: normal inspection - Back Exam Back exam: Present: normal inspection - Neurological Exam Neurological exam: Present: alert, oriented X3 - Psychiatric Psychiatric exam: Present: normal affect, normal mood - Skin Skin exam: Present: warm, dry, intact, normal color. Absent: rash ED Course Vital Signs 03/23/17 03/23/17 22:40 22:46 Temperature 99.2 F 99.2 F Pulse Rate 101 H 101 H Respiratory 18 Rate Blood Pressure 121/66 Blood Pressure 121/66 [Left] O2 Sat by Pulse 100 96 Oximetry ED Medical Decision Making - Medical Decision Making A/P: Small left-sided breast abscess 1-I offered patient aspiration of 1-2 cm left breast abscess. Patient states she would rather take antibiotics and use warm compresses for now. 2-pt she states that she has mammogram scheduled next month 3-patient states that she has follow-up with [employer] on a regular basis 4-Tylenol Extra Strength for pain 5- clindamycin seven-day course as patient is allergic to Bactrim and penicillins Critical care attestation.: If time is entered above; I have spent that time in minutes in the direct care of this critically ill patient, excluding procedure time. ED Disposition Clinical Impression: Breast abscess Disposition: DC TO HOME OR SELFCARE Is pt being admited?: No Does the pt Need Aspirin: No Condition: Stable Instructions: Abscess (ED) Prescriptions: Acetaminophen [Acetaminophen TAB] 500 mg PO Q6HR PRN #30 tablet PRN Reason: Pain Clindamycin [Clindamycin CAP] 300 mg PO Q6H #28 capsule Forms: Work/School Release Form(ED) Time of Disposition: 01:50
[2017-03-24] MEDS ORDERED: TYLENOL PO ONE (01:51)
[2017-03-24] MEDS ORDERED: CLEOCIN PO ONE (01:51)
[2017-03-24 02:28] VITALS: BP 103/67
== END 2017-03-24 02:26 | disposition home or self-care (01) ==
LOC: ED 21:50
DX: N61.1 Abscess of the breast and nipple (principal); K21.9 Gastro-esophageal reflux disease without esophagitis; J45.909 Unspecified asthma, uncomplicated; C73 Malignant neoplasm of thyroid gland; Z88.8 Allergy status to other drugs, medicaments and biological substances
CPT/HCPCS: 81025; 99283

== ENCOUNTER 2017-04-17 11:37 | Emergency (ER) | payer MEDICARE ==
[2017-04-17] MEDS ORDERED: BENADRYL ONE (11:45)
[2017-04-17] MEDS ORDERED: PEPCID IV ONE ×2 (11:45→12:03)
[2017-04-17] MEDS ORDERED: BENADRYL IV ONE (12:03)
[2017-04-17] MEDS ORDERED: ADRENALINE P/F SUB-Q ONE (12:18)
[2017-04-17] MEDS ORDERED: NACL 0.9% 1000 ML 1,000 ML IV ONE (12:20)
[2017-04-17] MEDS ORDERED: DECADRON IV ONE (12:20)
--- NOTE | 2017-04-17 12:22 | Emergency Department Report ---
HPI - General Chief Complaint: Allergic Reaction ED Past Medical Hx - Past Medical History Previous Medical History?: Yes Hx Hypertension: No Hx Heart Attack/AMI: No Hx Congestive Heart Failure: No Hx Diabetes: No Hx Deep Vein Thrombosis: No Hx Pulmonary Embolism: No Hx GERD: Yes Hx Liver Disease: No Hx Renal Disease: No Hx Sickle Cell Disease: No Hx Arthritis: No Hx Seizures: No Hx Kidney Stones: No Hx Asthma: Yes Hx COPD: No Hx Tuberculosis: No Hx Dementia: No Hx HIV: No Additional medical history: sinus problems / ABD HERNIA. - Surgical History Past Surgical History?: Yes Hx Coronary Stent: No Hx Open Heart Surgery: No Hx Pacemaker: No Hx Internal Defibrillator: No Hx Cholecystectomy: No Hx Appendectomy: No Hx Breast Surgery: No Additional Surgical History: x4, umbilical hernia repair, sinus surgeries, D&C. thyroid removal - Social History Smoking Status: Never Smoker Substance Use Type: None - Medications Home Medications: Home Medications Medication Instructions Recorded Confirmed Last Taken Type Albuterol Sulfate [Albuterol 0.63% 0.63 mg IH TID PRN #1 box 11/02/16 03/01/17 03/01/17 Rx NEBS] Acetaminophen/Codeine [Tylenol 1 tab PO Q6H PRN #8 tab 01/25/17 03/01/17 Rx /Codeine # 3 tab] Fluticasone [Flonase] 1 spray NS QDAY #1 bottle 02/06/17 03/01/17 03/01/17 Rx Ipratropium [Atrovent NEB] 0.5 mg IH Q4HR #2 ml 02/06/17 03/01/17 03/01/17 Rx Ciprofloxacin HCl [Ciprofloxacin 500 mg PO BID #10 tablet 02/18/17 03/01/17 Rx TAB] Albuterol Sulfate [Albuterol 0.63% 0.63 mg IH Q4HR PRN #2 ml 03/02/17 Unknown Rx NEBS] Albuterol Sulfate [Proair 90 mcg IH Q4HR PRN #2 aer.pow.ba 03/02/17 Unknown Rx Respiclick] Ipratropium [place] [Atrovent Hfa] 12.9 gm IH Q4HR #2 hfa.aer.ad 03/02/17 Unknown Rx Ipratropium [Atrovent NEB] 0.5 mg IH Q4HR #2 ml 03/02/17 Unknown Rx predniSONE [Deltasone] 40 mg PO QDAY #8 tab 03/02/17 Unknown Rx Acetaminophen [Acetaminophen TAB] 500 mg PO Q6HR PRN #30 tablet 03/24/17 Unknown Rx Clindamycin [Clindamycin CAP] 300 mg PO Q6H #28 capsule 03/24/17 Unknown Rx ED Review of Systems ROS: Stated complaint: ALLERGIC REACTION Other details as noted in HPI Physical Exam - Physical Exam Vital Signs: Vital Signs 04/17/17 04/17/17 04/17/17 11:49 11:50 11:59 Temperature 98.4 F Blood Pressure 151/102 O2 Sat by Pulse 98 98 Oximetry ED Course Vital Signs 04/17/17 04/17/17 04/17/17 11:49 11:50 11:59 Temperature 98.4 F Blood Pressure 151/102 O2 Sat by Pulse 98 98 Oximetry Critical care attestation.: If time is entered above; I have spent that time in minutes in the direct care of this critically ill patient, excluding procedure time. ED Disposition Condition: Stable Referrals: MERRICK DE LEON MD [Primary Care Provider] - 3-5 Days
--- NOTE | 2017-04-17 12:22 | Emergency Department Report ---
HPI - General Chief Complaint: Allergic Reaction - HPI HPI: patient brought to er with lower lip swelling, sob, throat pain, started after taking metronidazole for the first time this am. no fever, no chest pain. no n/ v. ED Past Medical Hx - Past Medical History Previous Medical History?: Yes Hx Hypertension: No Hx Heart Attack/AMI: No Hx Congestive Heart Failure: No Hx Diabetes: No Hx Deep Vein Thrombosis: No Hx Pulmonary Embolism: No Hx GERD: Yes Hx Liver Disease: No Hx Renal Disease: No Hx Sickle Cell Disease: No Hx Arthritis: No Hx Seizures: No Hx Kidney Stones: No Hx Asthma: Yes Hx COPD: No Hx Tuberculosis: No Hx Dementia: No Hx HIV: No Additional medical history: sinus problems / ABD HERNIA. - Surgical History Past Surgical History?: Yes Hx Coronary Stent: No Hx Open Heart Surgery: No Hx Pacemaker: No Hx Internal Defibrillator: No Hx Cholecystectomy: No Hx Appendectomy: No Hx Breast Surgery: No Additional Surgical History: x4, umbilical hernia repair, sinus surgeries, D&C. thyroid removal - Social History Smoking Status: Never Smoker Substance Use Type: None - Medications Home Medications: Home Medications Medication Instructions Recorded Confirmed Last Taken Type Albuterol Sulfate [Albuterol 0.63% 0.63 mg IH TID PRN #1 box 11/02/16 03/01/17 03/01/17 Rx NEBS] Acetaminophen/Codeine [Tylenol 1 tab PO Q6H PRN #8 tab 01/25/17 03/01/17 Rx /Codeine # 3 tab] Fluticasone [Flonase] 1 spray NS QDAY #1 bottle 02/06/17 03/01/17 03/01/17 Rx Ipratropium [Atrovent NEB] 0.5 mg IH Q4HR #2 ml 02/06/17 03/01/17 03/01/17 Rx Ciprofloxacin HCl [Ciprofloxacin 500 mg PO BID #10 tablet 02/18/17 03/01/17 Rx TAB] Albuterol Sulfate [Albuterol 0.63% 0.63 mg IH Q4HR PRN #2 ml 03/02/17 Unknown Rx NEBS] Albuterol Sulfate [Proair 90 mcg IH Q4HR PRN #2 aer.pow.ba 03/02/17 Unknown Rx Respiclick] Ipratropium [place] [Atrovent Hfa] 12.9 gm IH Q4HR #2 hfa.aer.ad 03/02/17 Unknown Rx Ipratropium [Atrovent NEB] 0.5 mg IH Q4HR #2 ml 03/02/17 Unknown Rx predniSONE [Deltasone] 40 mg PO QDAY #8 tab 03/02/17 Unknown Rx Acetaminophen [Acetaminophen TAB] 500 mg PO Q6HR PRN #30 tablet 03/24/17 Unknown Rx Clindamycin [Clindamycin CAP] 300 mg PO Q6H #28 capsule 03/24/17 Unknown Rx Clindamycin [Clindamycin CAP] 150 mg PO Q8HR #30 capsule 04/17/17 Unknown Rx methylPREDNISolone [Medrol] 4 mg PO DAILY #1 pkg 04/17/17 Unknown Rx ED Review of Systems ROS: Stated complaint: ALLERGIC REACTION Other details as noted in HPI Comment: All other systems reviewed and negative Respiratory: cough, SOB with exertion Cardiovascular: palpitations Physical Exam - Physical Exam Vital Signs: Vital Signs 04/17/17 04/17/17 04/17/17 11:49 11:50 11:59 Temperature 98.4 F Blood Pressure 151/102 O2 Sat by Pulse 98 98 Oximetry Physical Exam: pe gen: alert oriented x 3 heent; uvular swelling, pharyngeal erythema cv: rrr, nl s1, s2 abd: s,nt,nd skin- no rash ext, no swelling neuro: awake, no focal deficits ED Course Vital Signs 04/17/17 04/17/17 04/17/17 11:49 11:50 11:59 Temperature 98.4 F Blood Pressure 151/102 O2 Sat by Pulse 98 98 Oximetry - Reevaluation(s) Reevaluation #1: 04/17/17 15:41 meds given, with much improvement. ED Medical Decision Making - Lab Data Result diagrams: 04/17/17 13:45 04/17/17 13:45 Critical care attestation.: If time is entered above; I have spent that time in minutes in the direct care of this critically ill patient, excluding procedure time. ED Disposition Clinical Impression: Acute allergic reaction, Sinusitis Disposition: DC-01 TO HOME OR SELFCARE Is pt being admited?: No Does the pt Need Aspirin: No Condition: Stable Prescriptions: Clindamycin [Clindamycin CAP] 150 mg PO Q8HR #30 capsule methylPREDNISolone [Medrol] 4 mg PO DAILY #1 pkg Referrals: MERRICK DE LEON MD [Primary Care Provider] - 3-5 Days
[2017-04-17] MEDS ORDERED: ADRENALIN SUB-Q ONE (13:00)
[2017-04-17] MEDS ORDERED: PROVENTIL IH ONE (13:42)
[2017-04-17] MEDS ORDERED: NACL ONE (13:59)
[2017-04-17] MEDS ORDERED: DUONEB *Not for PRN Use IH ONE (14:09)
[2017-04-17 14:19] LABS: Basophils % (Auto) 0.3 % (0.0-1.8); Eosinophils % (Auto) 2.3 % (0.0-4.3); Hematocrit 41.8 % (30.3-42.9); Hemoglobin 13.1 gm/dl (10.1-14.3); Mean Corpuscular HGB Conc 31 % (30-34); Mean Corpuscular Volume 81 fl (79-97); Platelet Count 235 K/mm3 (140-440); Red Blood Count 5.19 M/mm3 (3.65-5.03); Red Cell Distribution Width 17.2 % (13.2-15.2); White Blood Count 9.2 K/mm3 (4.5-11.0)
[2017-04-17 14:20] LABS: Mean Corpuscular Hemoglobin 25 pg (28-32)
[2017-04-17 14:33] LABS: Anion Gap 15 mmol/L; BUN/Creatinine Ratio 13.75; Blood Urea Nitrogen 11 mg/dL (7-17); Calcium 9.5 mg/dL (8.4-10.2); Carbon Dioxide 25 mmol/L (22-30); Chloride 99.6 mmol/L (98-107); Glucose 166 mg/dL (65-100); Sodium 136 mmol/L (137-145)
--- NOTE | 2017-04-17 15:19 | Cat Scan Report ---
CT NECK WITH CONTRAST: HISTORY: Pain. TECHNIQUE: Helical CT following IV contrast. Sagittal and coronal reformatted images. FINDINGS: The parotid and submandibular glands are normal. The carotid sheaths are intact. There is no evidence of adenopathy within the neck. The thyroid gland is normal. The glottic structures are normal. The airway is patent. Strap musculature is unremarkable. Hyoid bone and thyroid cartilage are intact. Moderate to severe chronic pansinusitis as noted. Surgical changes/edema is noted in the anterior neck consistent with thyroid surgery. IMPRESSION: Unremarkable CT neck.
[2017-04-17 15:56] VITALS: BP 115/74
== END 2017-04-17 16:05 | disposition home or self-care (01) ==
LOC: ED 11:37
DX: J32.9 Chronic sinusitis, unspecified (principal); T37.8X5A Adverse effect of other specified systemic anti-infectives and antiparasitics, initial encounter; K21.9 Gastro-esophageal reflux disease without esophagitis; J45.909 Unspecified asthma, uncomplicated; Y92.89 Other specified places as the place of occurrence of the external cause
CPT/HCPCS: 36415; 70491; 80048; 85025; 94640; 96361; 96372; 96374; 96375; 99284; J0171; J1100; J1200; J2930; J7030; Q9967

== ENCOUNTER 2017-04-28 06:13 | Emergency (ER) | payer MEDICARE ==
[2017-04-28] MEDS ORDERED: DUONEB *Not for PRN Use IH ONE ×2 (06:31→09:28)
[2017-04-28 07:28] LABS: Basophils % (Auto) 0.5 % (0.0-1.8); Eosinophils % (Auto) 1.9 % (0.0-4.3); Hematocrit 39.4 % (30.3-42.9); Hemoglobin 12.3 gm/dl (10.1-14.3); Mean Corpuscular HGB Conc 31 % (30-34); Mean Corpuscular Volume 81 fl (79-97); Platelet Count 214 K/mm3 (140-440); Red Blood Count 4.89 M/mm3 (3.65-5.03); Red Cell Distribution Width 16.6 % (13.2-15.2); White Blood Count 12.3 K/mm3 (4.5-11.0)
[2017-04-28 07:38] LABS: Anion Gap 19 mmol/L; BUN/Creatinine Ratio 15.55; Blood Urea Nitrogen 14 mg/dL (7-17); Calcium 8.8 mg/dL (8.4-10.2); Carbon Dioxide 21 mmol/L (22-30); Chloride 103.3 mmol/L (98-107); Glucose 129 mg/dL (65-100); Potassium 4.3 mmol/L (3.6-5.0); Sodium 139 mmol/L (137-145)
[2017-04-28 07:59] LABS: Mean Corpuscular Hemoglobin 25 pg (28-32)
[2017-04-28] MEDS ORDERED: DECADRON IM ONE (09:27)
[2017-04-28] MEDS ORDERED: PROVENTIL IH ONE (09:27)
--- NOTE | 2017-04-28 09:30 | Emergency Department Report ---
ED Asthma HPI - General Chief Complaint: Adult Asthma Stated Complaint: ASTHMA/SOB Time Seen by Provider: 04/28/17 09:21 Source: patient Mode of arrival: Ambulatory Limitations: No Limitations - History of Present Illness Initial Comments: Patient is a 46-year-old female with a known history of asthma on a current prednisone taper here with worsening shortness of breath started at 3 AM. Patient states that she became short of breath and wheeze at this morning. [place] and [place] unable to use her nebulizer machine. She presented here to the emergency department at that point. She denies fevers chills nausea vomiting cough. MD Complaint: "asthma attack" -: Sudden Asthma History: childhood onset Severity: mild Context: ran out of meds, other (heat and humidity) Associated Symptoms: none - Related Data Current Asthma Therapy: inhaled bronchodilator, recent oral steroid Home Medications Medication Instructions Recorded Confirmed Last Taken Levothyroxine Sodium 137 mcg PO QAM 04/17/17 04/17/17 04/16/17 [Levothyroxine] metroNIDAZOLE [Flagyl TAB] 500 mg PO Q12H 04/17/17 04/17/17 04/17/17 Previous Rx's Medication Instructions Recorded Last Taken Type ALBUTEROL NEB's [Proventil 0.083% 2.5 mg IH TID PRN #60 nebu 04/28/17 Unknown Rx NEBS] predniSONE [Deltasone] 40 mg PO QDAY #8 tab 04/28/17 Unknown Rx Allergies Allergy/AdvReac Type Severity Reaction Status Date / Time doxycycline Allergy Rash Verified 12/11/15 13:48 famotidine [From Pepcid] Allergy Hives Verified 03/11/16 15:13 ketorolac tromethamine Allergy Anaphylaxis Verified 12/11/15 13:48 [From Toradol] Latex, Natural Rubber Allergy Angioedema Verified 12/11/15 13:48 morphine Allergy Shortness Verified 02/16/17 09:42 of Breath tiotropium bromide Allergy Anaphylaxis Verified 12/11/15 13:48 [From Spiriva with HandiHaler] azithromycin [From Zithromax] AdvReac Anaphylaxis Verified 12/11/15 13:48 NSAIDS (Non-Steroidal AdvReac Anaphylaxis Verified 12/11/15 13:48 Anti-Inflamma Penicillins AdvReac Hives Verified 02/09/16 22:11 ED Review of Systems ROS: Stated complaint: ASTHMA/SOB Other details as noted in HPI Comment: All other systems reviewed and negative Constitutional: denies: chills, fever Eyes: denies: eye pain, eye discharge, vision change ENT: denies: ear pain, throat pain Respiratory: shortness of breath, wheezing. denies: cough Cardiovascular: denies: chest pain, palpitations Endocrine: no symptoms reported Gastrointestinal: denies: abdominal pain, nausea, diarrhea Genitourinary: denies: urgency, dysuria, discharge Musculoskeletal: denies: back pain, joint swelling, arthralgia Skin: denies: rash, lesions Neurological: denies: headache, weakness, paresthesias Psychiatric: denies: anxiety, depression Hematological/Lymphatic: denies: easy bleeding, easy bruising ED Past Medical Hx - Past Medical History Previous Medical History?: Yes Hx Hypertension: No Hx Heart Attack/AMI: No Hx Congestive Heart Failure: No Hx Diabetes: No Hx Deep Vein Thrombosis: No Hx Pulmonary Embolism: No Hx GERD: Yes Hx Liver Disease: No Hx Renal Disease: No Hx Sickle Cell Disease: No Hx Arthritis: No Hx Seizures: No Hx Kidney Stones: No Hx Asthma: Yes Hx COPD: No Hx Tuberculosis: No Hx Dementia: No Hx HIV: No Additional medical history: sinus problems / ABD HERNIA. Prior Intubations. - Surgical History Past Surgical History?: Yes Hx Coronary Stent: No Hx Open Heart Surgery: No Hx Pacemaker: No Hx Internal Defibrillator: No Hx Cholecystectomy: No Hx Appendectomy: No Hx Breast Surgery: No Additional Surgical History: x4, umbilical hernia repair, sinus surgeries, D&C. thyroid removal - Social History Smoking Status: Never Smoker Substance Use Type: None - Medications Home Medications: Home Medications Medication Instructions Recorded Confirmed Last Taken Type Levothyroxine Sodium 137 mcg PO QAM 04/17/17 04/17/17 04/16/17 History [Levothyroxine] metroNIDAZOLE [Flagyl TAB] 500 mg PO Q12H 04/17/17 04/17/17 04/17/17 History ALBUTEROL NEB's [Proventil 0.083% 2.5 mg IH TID PRN #60 nebu 04/28/17 Unknown Rx NEBS] predniSONE [Deltasone] 40 mg PO QDAY #8 tab 04/28/17 Unknown Rx ED Physical Exam - General Limitations: No Limitations General appearance: alert, in no apparent distress - Head Head exam: Present: atraumatic, normocephalic - Eye Eye exam: Present: normal appearance, PERRL, EOMI - ENT ENT exam: Present: normal exam, normal orophraynx, mucous membranes moist - Neck Neck exam: Present: normal inspection. Absent: tenderness, meningismus - Respiratory Respiratory exam: Present: wheezes. Absent: respiratory distress, rales, rhonchi - Cardiovascular Cardiovascular Exam: Present: regular rate, normal rhythm. Absent: systolic murmur, diastolic murmur, rubs, gallop - GI/Abdominal GI/Abdominal exam: Present: soft, normal bowel sounds. Absent: distended, tenderness - Extremities Exam Extremities exam: Present: normal inspection. Absent: pedal edema, joint swelling - Back Exam Back exam: Present: normal inspection. Absent: full ROM, tenderness - Neurological Exam Neurological exam: Present: alert, oriented X3 - Psychiatric Psychiatric exam: Present: normal affect, normal mood - Skin Skin exam: Present: warm, dry, intact, normal color. Absent: rash ED Course Vital Signs 04/28/17 04/28/17 04/28/17 06:29 06:34 06:43 Temperature 98.7 F Pulse Rate 96 H Pulse Rate [ 89 92 H Posterior Bilateral Throughout] Respiratory 20 Rate Respiratory 20 20 Rate [Posterior Bilateral Throughout] Blood Pressure 128/86 [Right] O2 Sat by Pulse 96 Oximetry ED Medical Decision Making - Lab Data Result diagrams: 04/28/17 07:11 04/28/17 07:11 - Medical Decision Making 46-year-old asthmatic with mild wheezing here with improvement after nebulizers. She is currently on a steroid taper and will need additional treatments. We will increase her prednisone to 40 mg by mouth for 3 days and then resume her taper. Plan to give her a prescription for her albuterol. Plan additional albuterol neb here and additional steroid shot and plan to discharge. Portions of this chart were dictated with dictation software. There may be dictation errors contained within this note. Critical care attestation.: If time is entered above; I have spent that time in minutes in the direct care of this critically ill patient, excluding procedure time. ED Disposition Clinical Impression: Asthma with acute exacerbation Disposition: DC-01 TO HOME OR SELFCARE Is pt being admited?: No Condition: Stable Instructions: Asthma (ED) Prescriptions: ALBUTEROL NEB's [Proventil 0.083% NEBS] 2.5 mg IH TID PRN #60 nebu PRN Reason: Wheezing predniSONE [Deltasone] 40 mg PO QDAY #8 tab Referrals: MERRICK DE LEON MD [Primary Care Provider] - 3-5 Days
[2017-04-28 10:38] VITALS: BP 127/69
== END 2017-04-28 09:50 | disposition home or self-care (01) ==
LOC: ED 06:13
DX: J45.901 Unspecified asthma with (acute) exacerbation (principal); K21.9 Gastro-esophageal reflux disease without esophagitis; Z88.0 Allergy status to penicillin; Z88.1 Allergy status to other antibiotic agents; Z88.5 Allergy status to narcotic agent; Z91.040 Latex allergy status; Z88.8 Allergy status to other drugs, medicaments and biological substances
CPT/HCPCS: 36415; 80048; 82140; 82805; 83735; 84484; 84703; 85025; 93005; 93010; 94640; 96372; 99284; J1100

== ENCOUNTER 2017-05-04 22:37 | Inpatient (IN) | payer MEDICARE ==
[2017-05-05 00:03] LABS: Basophils % (Auto) 0.3 % (0.0-1.8); Eosinophils % (Auto) 5.5 % (0.0-4.3); Hematocrit 38.4 % (30.3-42.9); Hemoglobin 12.3 gm/dl (10.1-14.3); Mean Corpuscular HGB Conc 32 % (30-34); Mean Corpuscular Hemoglobin 26 pg (28-32); Mean Corpuscular Volume 81 fl (79-97); Platelet Count 192 K/mm3 (140-440); Red Blood Count 4.74 M/mm3 (3.65-5.03); Red Cell Distribution Width 17.4 % (13.2-15.2); White Blood Count 8.2 K/mm3 (4.5-11.0)
[2017-05-05 00:11] LABS: Anion Gap 16 mmol/L; BUN/Creatinine Ratio 14.28; Blood Urea Nitrogen 10 mg/dL (7-17); Calcium 8.7 mg/dL (8.4-10.2); Carbon Dioxide 25 mmol/L (22-30); Chloride 99.2 mmol/L (98-107); Glucose 130 mg/dL (65-100); Potassium 3.8 mmol/L (3.6-5.0); Sodium 136 mmol/L (137-145)
--- NOTE | 2017-05-05 00:34 | Emergency Department Report ---
HPI - General Chief Complaint: Allergic Reaction Time Seen by Provider: 05/05/17 00:25 - HPI HPI: Room 17 The patient is a 46-year-old female presenting with a chief complaint of feeling as though her throat was closing. The patient states just prior to arrival while driving she felt as though her throat was closing and was getting difficult to breathe. Patient states felt as though her tongue was swollen so the patient drove herself to the emergency department. Patient states her only preceding complaints include bilateral lower extremity pain for the past 2 days. The patient states she has somewhat episode February 2017. The patient states this does not feel like her asthma Location: Throat Duration: [see above] Quality: "Closing" Severity: Moderate Modifying factors: [see above] Context: [see above] Mode of transportation: The patient drove herself to the emergency department and there are no visitors present ED Past Medical Hx - Past Medical History Hx GERD: Yes Hx Asthma: Yes Additional medical history: sinus problems / ABD HERNIA. Prior Intubations. - Surgical History Additional Surgical History: x4, umbilical hernia repair, sinus surgeries, D&C. thyroid removal - Family History Family history: no significant - Social History Smoking Status: Never Smoker Substance Use Type: None (has illicit drug use) - Medications Home Medications: Home Medications Medication Instructions Recorded Confirmed Last Taken Type Levothyroxine Sodium 137 mcg PO QAM 04/17/17 04/17/17 04/16/17 History [Levothyroxine] metroNIDAZOLE [Flagyl TAB] 500 mg PO Q12H 04/17/17 04/17/17 04/17/17 History ALBUTEROL NEB's [Proventil 0.083% 2.5 mg IH TID PRN #60 nebu 04/28/17 Unknown Rx NEBS] predniSONE [Deltasone] 40 mg PO QDAY #8 tab 04/28/17 Unknown Rx ED Review of Systems ROS: Stated complaint: SILVIANO Other details as noted in HPI Comment: All other systems reviewed and negative Constitutional: denies: chills, fever Eyes: denies: eye pain, eye discharge, vision change ENT: throat pain Respiratory: shortness of breath Cardiovascular: denies: chest pain, palpitations Endocrine: no symptoms reported Gastrointestinal: denies: abdominal pain, nausea, diarrhea Genitourinary: denies: urgency, dysuria, discharge Musculoskeletal: myalgia Skin: denies: rash, lesions Neurological: denies: headache, weakness, paresthesias Psychiatric: denies: anxiety, depression Hematological/Lymphatic: denies: easy bleeding, easy bruising Physical Exam - Physical Exam Vital Signs: Vital Signs 05/04/17 22:45 Temperature 98.4 F Pulse Rate 83 Respiratory 16 Rate Blood Pressure 140/99 O2 Sat by Pulse 96 Oximetry Physical Exam: GENERAL: The patient is well-developed well-nourished female lying on stretcher not appearing to be in acute distress. [] HEENT: Normocephalic. Atraumatic. Extraocular motions are intact. Patient has moist mucous membranes. Oropharynx clear. Uvula midline. No appreciable swelling seen NECK: Supple. No meningitic signs are noted. There is no stridor CHEST/LUNGS: Clear to auscultation. There is no respiratory distress noted. HEART/CARDIOVASCULAR: Regular. There is no tachycardia. There is no gallop rub or murmur. ABDOMEN: Abdomen is soft, nontender. Patient has normal bowel sounds. There is no abdominal distention. SKIN: There is no rash. There is no edema. There is no diaphoresis. NEURO: The patient is awake, alert, and oriented. The patient is cooperative. The patient has normal speech MUSCULOSKELETAL: There is no evidence of acute injury. ED Course Vital Signs 05/04/17 22:45 Temperature 98.4 F Pulse Rate 83 Respiratory 16 Rate Blood Pressure 140/99 O2 Sat by Pulse 96 Oximetry ED Medical Decision Making - Lab Data Result diagrams: 05/04/17 23:39 05/04/17 23:39 Laboratory Tests 05/04/17 05/04/17 05/05/17 23:39 23:39 00:00 WBC 8.2 RBC 4.74 Hgb 12.3 Hct 38.4 MCV 81 MCH 26 L MCHC 32 RDW 17.4 H Plt Count 192 Lymph % (Auto) 24.2 Gaines % (Auto) 12.0 H Eos % (Auto) 5.5 H Baso % (Auto) 0.3 Lymph # 2.0 Gaines # 1.0 H Eos # 0.5 H Baso # 0.0 Seg Neutrophils % 58.0 Seg Neutrophils # 4.8 Sodium 136 L Potassium 3.8 Chloride 99.2 Carbon Dioxide 25 Anion Gap 16 BUN 10 Creatinine 0.7 Estimated GFR > 60 BUN/Creatinine Ratio 14.28 Glucose 130 H Calcium 8.7 Total Creatine Kinase 146 H - Radiology Data Radiology results: report reviewed (lateral soft tissue neck x-ray), image reviewed (lateral soft tissue neck x-ray) interpreted by me: Lateral soft tissue neck x-ray-no prevertebral swelling, no evidence of epiglottitis Lateral soft tissue neck x-ray (read by radiologist)- minimal prominence of the prevertebral soft tissues, nonspecific but in keeping with pharyngitis. On the frontal projection there is apparent focal narrowing of the subglottic airway. There is slight air-filled distention of the hypopharynx on the lateral radiograph. Taken together these findings raised the possibility of croup (an entity uncommonly seen with adults). The glottis is unremarkable. - Differential Diagnosis allergic reaction, asthma, malingering, angioedema Critical care attestation.: If time is entered above; I have spent that time in minutes in the direct care of this critically ill patient, excluding procedure time. ED Disposition Clinical Impression: Shortness of breath, Allergic reaction Disposition: OP ADMIT IP TO THIS HOSP Is pt being admited?: Yes Does the pt Need Aspirin: No Condition: Fair Referrals: HIWOT BRUNO MD [Primary Care Provider] - 3-5 Days Time of Disposition: 02:51 (hospitalist paged)
[2017-05-05] MEDS ORDERED: S2 RACEPINEPHRINE 2.25% IH ONE (00:43)
--- NOTE | 2017-05-05 02:32 | XRay Report ---
FINAL REPORT EXAM: XR NECK SOFT TISSUE HISTORY: THROAT DISCOMFORT. TECHNIQUE: Frontal and lateral radiographs of the neck were obtained. No prior studies are available for comparison. FINDINGS: There is minimal prominence of the prevertebral soft tissues, nonspecific but in keeping with pharyngitis. On the frontal projection, there is apparent focal narrowing of the subglottic airway. There is slight air-filled distention of the hypopharynx on the lateral radiograph. Taken together, these findings raise the possibility of croup (an entity uncommonly seen with adults). Clinical correlation is recommended. The epiglottis is unremarkable. No other soft tissue abnormality is seen. The nasopharyngeal and oropharyngeal airways are patent on the lateral radiograph. There is mild straightening of the normal cervical lordosis, which may be due to patient positioning and/or muscle spasm. There is no fracture or spondylolisthesis. There are mild spondylotic changes at C3-4 through C5-6, with associated loss of disc height. IMPRESSION: 1. Minimal prominence of the prevertebral soft tissues, nonspecific but in keeping with pharyngitis. 2. Findings suggestive of croup (an entity uncommonly seen with adults), and clinical correlation is recommended. Patent airway. 3. Nonspecific mild straightening of the normal cervical lordosis, with no fracture or spondylolisthesis.
[2017-05-05] MEDS ORDERED: TYLENOL PO PRN (03:58)
[2017-05-05] MEDS ORDERED: ZOFRAN IV PRN (03:58)
[2017-05-05] MEDS ORDERED: DULCOLAX PR PRN (03:58)
[2017-05-05] MEDS ORDERED: MILK OF MAGNESIA PO PRN (03:58)
--- NOTE | 2017-05-05 03:58 | History and Physical Report ---
History of Present Illness Date of examination: 05/05/17 History of present illness: 46-year-old woman with history of asthma, GERD, sinusitis comes emergency room with complaints of shortness of breath and felt like her throat was closing up. She took a nebulizer treatment with some relief but her symptoms returned less than 5 minutes, denies any new food, skin products Review of systems Constitutional: no fever, no chills, no weight loss Ears, eyes, nose, mouth and throat: no nasal congestion, no nasal discharge, no sinus pressure, no vision change, no red eye. Neck: No neck pain or rigidity. Cardiovascular: chest pain, no orthopnea, no palpitations, no leg swelling Respiratory: No cough, no congestion, no wheezing Gastrointestinal: abdominal pain, hematochezia, no nausea, no vomiting Genitourinary : no dysuria, frequency , no hematuria Musculoskeletal: no joint swelling or muscle ache Integumentary: no rash, no pruritis Neurological: no parathesias, no numbness, no focal weakness Endocrine: no cold or heat intolerance, no polyuria or polydipsia Hematologic/Lymphatic: no easy bruising, no easy bleeding, no gland swelling Allergic/Immunologic: no urticaria, no angioedema. PAST MEDICAL HISTORY:asthma, GERD, sinusitis PAST SURGICAL HISTORY: 4 FAMILY HISTORY: Hypertension SOCIAL HISTORY: Denies all, tobacco, drugs Medications and Allergies Allergies Allergy/AdvReac Type Severity Reaction Status Date / Time doxycycline Allergy Rash Verified 12/11/15 13:48 famotidine [From Pepcid] Allergy Hives Verified 03/11/16 15:13 ketorolac tromethamine Allergy Anaphylaxis Verified 12/11/15 13:48 [From Toradol] Latex, Natural Rubber Allergy Angioedema Verified 12/11/15 13:48 morphine Allergy Shortness Verified 02/16/17 09:42 of Breath tiotropium bromide Allergy Anaphylaxis Verified 12/11/15 13:48 [From Spiriva with HandiHaler] azithromycin [From Zithromax] AdvReac Anaphylaxis Verified 12/11/15 13:48 NSAIDS (Non-Steroidal AdvReac Anaphylaxis Verified 12/11/15 13:48 Anti-Inflamma Penicillins AdvReac Hives Verified 02/09/16 22:11 Home Medications Medication Instructions Recorded Confirmed Last Taken Type Levothyroxine Sodium 137 mcg PO QAM 04/17/17 04/17/17 04/16/17 History [Levothyroxine] metroNIDAZOLE [Flagyl TAB] 500 mg PO Q12H 04/17/17 04/17/17 04/17/17 History ALBUTEROL NEB's [Proventil 0.083% 2.5 mg IH TID PRN #60 nebu 04/28/17 Unknown Rx NEBS] predniSONE [Deltasone] 40 mg PO QDAY #8 tab 04/28/17 Unknown Rx Exam - Physical Exam Narrative exam: Gen. appearance: Patient lying in bed, no apparent distress HEENT: Normocephalic, atraumatic, pupils equally round and reactive to light, extraocular movement intact, and no sclericterus,. No JVD or thyromegaly or nodule,neck supple, no carotid bruit ,mucous membranes moist, no exudate or erythema Heart: S1, S2, regular rate and rhythm Lungs: Clear to auscultation bilaterally, breathing comfortable Abdomen: Positive bowel sounds, nontender, nondistended, no organomegaly Extremity: No edema, cyanosis, clubbing Skin: No rash, nodules, warm, dry Neuro: Oriented 3, cranial nerves II-12 intact, speech is fluent, motor and sensory intact - Constitutional Vitals: Temp Pulse Resp BP Pulse Ox 98.4 F 70 16 126/69 99 05/04/17 22:45 05/05/17 01:02 05/05/17 01:02 05/05/17 00:21 05/05/17 00:21 Results - Labs CBC & Chem 7: 05/04/17 23:39 05/04/17 23:39 Labs: Abnormal lab results 05/04/17 05/04/17 05/05/17 Range/Units 23:39 23:39 00:00 MCH 26 L (28-32) pg RDW 17.4 H (13.2-15.2) % Gosper % (Auto) 12.0 H (0.0-7.3) % Eos % (Auto) 5.5 H (0.0-4.3) % Gosper # 1.0 H (0.0-0.8) K/mm3 Eos # 0.5 H (0.0-0.4) K/mm3 Sodium 136 L (137-145) mmol/L Glucose 130 H (65-100) mg/dL Total Creatine Kinase 146 H (30-135) units/L Assessment and Plan xray of neck reviewed Assessment Allergic reaction Asthma GERD Hypothyroidism Plan Admits medicine Start high-dose steroids, benadryl Continue appropriate outpatient medications, start prophylaxis
[2017-05-05] MEDS: BENADRYL IV SCH ×4 (04:20→22:52)
[2017-05-05] MEDS ORDERED: PROVENTIL IH PRN (04:46)
[2017-05-05] MEDS: SYNTHROID PO SCH ×2 (06:21→06:22)
[2017-05-05] MEDS: LOVENOX SUB-Q SCH (10:19)
--- NOTE | 2017-05-05 11:27 | Event Note ---
Date: 05/05/17 patient seen and examined, feeling hungry, also with some sinus pain, cough, yellow tinged phlegm. will taper steroids, start on levaquin.-Pt with multiple allergies. Discharge in am if remains stable and needs Medical Technologist Clinical evaluation OUTPATIENT-Discussed with patient and she verbalized understanding.
[2017-05-05] MEDS: LEVAQUIN PO SCH (13:25)
[2017-05-05] MEDS: DUONEB *Not for PRN Use IH SCH ×2 (16:23→23:11)
[2017-05-05] MEDS: FLONASE NS SCH (19:40)
[2017-05-06] MEDS: BENADRYL IV SCH ×3 (00:22→11:33)
[2017-05-06] MEDS: SYNTHROID PO SCH ×2 (05:52)
[2017-05-06] MEDS: DUONEB *Not for PRN Use IH SCH (07:24)
[2017-05-06 07:36] LABS: Anion Gap 19 mmol/L; BUN/Creatinine Ratio 21.42; Blood Urea Nitrogen 15 mg/dL (7-17); Calcium 8.8 mg/dL (8.4-10.2); Carbon Dioxide 20 mmol/L (22-30); Chloride 104.3 mmol/L (98-107); Glucose 220 mg/dL (65-100); Potassium 4.5 mmol/L (3.6-5.0); Sodium 139 mmol/L (137-145)
[2017-05-06 07:41] LABS: Hematocrit 39.9 % (30.3-42.9); Hemoglobin 12.6 gm/dl (10.1-14.3); Mean Corpuscular HGB Conc 32 % (30-34); Mean Corpuscular Volume 81 fl (79-97); Platelet Count 197 K/mm3 (140-440); Red Cell Distribution Width 17.3 % (13.2-15.2)
[2017-05-06 07:50] LABS: Mean Corpuscular Hemoglobin 26 pg (28-32); White Blood Count 22.9 K/mm3 (4.5-11.0)
--- NOTE | 2017-05-06 08:10 | Discharge Summary ---
Providers - Providers Date of Admission: 05/05/17 03:58 Attending physician: CHIN AVENDANO MD Primary care physician: HIWOT BRUNO Hospitalization Reason for admission: SHORTNESS OF BREATH Condition: Fair Hospital course: 46-year-old woman with history of asthma, GERD, sinusitis comes emergency room with complaints of shortness of breath and felt like her throat was closing up. She took a nebulizer treatment with some relief but her symptoms returned less than 5 minutes, denies any new food, skin products. She further describes this event as a sensation of throat closing and that happened while she was driving and she stopped that due to breathing treatment for that at a gas station before presenting to the hospital her symptoms completely resolved and has been gone since then. No recurrence was noted in the hospital. She does have a hoarseness to his speech but she states that this has been chronic since her thyroid surgery about 2 years ago. I did recommend a follow-up with oncologist and also her kier pleater. At this time we will treat her for sinusitis with antibiotics and steroid treatment. imaging studies were in the ER concerning for Croup But acknowledged not a diagnosis in Adults. patient recieved Racemic epinephrine in the ER. Discharge diagnosis Acute Respiratory failure. Allergic reaction Asthma Sinusitis Obesity GERD Hypothyroidism Disposition: DC-01 TO HOME OR SELFCARE Time spent for discharge: 35 mins Core Measure Documentation - Palliative Care Palliative Care/ Comfort Measures: Not Applicable - Core Measures Any of the following diagnoses?: none - VTE Discharge Requirements Deep Vein Thrombosis/Pulmonary Embolism Present on Admission: No Exam - Physical Exam Narrative exam: VITAL SIGNS: Reviewed. GENERAL: The patient appeared well nourished and normally developed. Vital signs as documented. HEAD: No signs of head trauma. EYES: Pupils are equal. Extraocular motions intact. EARS: Hearing grossly intact. MOUTH: Oropharynx is normal. NECK: No adenopathy, no JVD. CHEST: Chest with clear breath sounds bilaterally. No wheezes, rales, or rhonchi. CARDIAC: Regular rate and rhythm. S1 and S2, without murmurs, gallops, or rubs. VASCULAR: No Edema. Peripheral pulses normal and equal in all extremities. ABDOMEN: Soft, without detectable tenderness. No sign of distention. No rebound or guarding, and no masses palpated. Bowel Sounds normal. MUSCULOSKELETAL: Good range of motion of all major joints. Extremities without clubbing, cyanosis or edema. NEUROLOGIC EXAM: Alert and oriented x 3. No focal sensory or strength deficits. Speech normal. Follows commands. PSYCHIATRIC: Mood normal. SKIN: No rash or lesions. - Constitutional Vitals: Temp Pulse Resp BP Pulse Ox 97.7 F 80 18 117/60 100 05/06/17 00:00 05/06/17 07:38 05/06/17 07:38 05/06/17 00:00 05/06/17 07:25 Plan Activity: advance as tolerated, fall precautions Diet: low fat Special Instructions: record daily BP diary Additional Instructions: Recommed outpatient Pulmonary and Wax Engraver evaluation in 3-7 days Follow up with: HIWOT BRUNO MD [Primary Care Provider] - 3-5 Days Prescriptions: Fluticasone [Flonase] 100 mcg NS QDAY 7 Days Levofloxacin [Levaquin TAB] 500 mg PO Q24HR #5 tablet predniSONE [Deltasone] 40 mg PO QDAY #8 tab
--- NOTE | 2017-05-06 08:40 | Admit Criteria Form ---
Admission Criteria Documentation: SYSTEMIC OR INFECTIOUS CONDITION Clinical Indications for Admission to Inpatient Care (Place 'X' for any and all applicable criteria): Hospital admission is needed for appropriate care of the patient because of ANY ONE of the following: []I. Hemodynamic instability indicated by ANY ONE of the following(1)(2)(3)(4 )(5): []a. Vital sign abnormality not readily corrected by appropriate treatment within 12 to 24 hours indicated by ANY ONE of the following: []i) Tachycardia that persists despite appropriate treatment []ii) Hypotension that persists despite appropriate treatment []iii) Orthostatic vital sign changes that persist despite appropriate treatment []b. Vital sign abnormality that is severe indicated by ANY ONE of the following: []i. Inadequate perfusion indicated by ANY ONE of the following : []1) Lactic acidosis (greater than 2 mmol/L) []2) New abnormal capillary refill (greater than 3 seconds) []3) Reduced urine output []4) New altered mental status []5) Myocardial Ischemia []ii. Mean arterial pressure [A] less than 60 mm Hg []iii. Mean arterial pressure[A] less than 70 mm Hg after 30 minutes of appropriate treatment (eg, fluid resuscitation) []iv. Sustained heart rate greater than 120 beats per minute in adult []v. IV inotropic or vasopressor medication required to maintain adequate blood pressure or perfusion []II. Systemic or infectious condition causing severe symptoms or findings not responsive to emergency or observation care treatment (as appropriate) indicated by ANY ONE of the following: []a. Cardiac arrhythmias of immediate concern(1)(2)(3) []b. Severe endocrine disorder (eg, thyrotoxicosis, adrenal insufficiency)(4)(5) []c. Seizures (eg, new or recurrent)(6) []d. New-onset end organ failure or dysfunction as indicated by ANY ONE of the following: []i. Acute unexplained hypoxemia (eg, not from lung infection or chronic disease)(7)(8)(9) []ii. Acute renal failure as indicated by new onset of ANY ONE of the following(10)(11)(12)(13)(14): []1) 3-fold rise in serum creatinine from baseline []2) Serum creatinine greater than 4 mg/dL (354 micromoles/L) with acute rise greater than 0.5 mg/dL (44.2 micromoles/L) []3) Reduction of more than 75% in estimated glomerular filtration rate from baseline. []4) Estimated glomerular filtration rate less than 35 mL/min/1.73m2 ( 0.59 mL/sec/1.73m2) in child younger than 18 years. []5) Cessation of urine output indicated by ALL of the following: []A. Adequate volume status []B. Inadequate urine output as indicated by ANY ONE of the following: []a. Urine output less than 0.3 mL/kg/hr for 24 hours []b. Anuria (urine output less than 0.1 mL/kg/hr) for 12 hours []iii. Acute mental status changes(15) []iv. Acute hepatic failure (eg, plasma bilirubin greater than 4 mg/ dL (68 micromoles/L), new INR greater than 2.0)(16)(17) []e. Unmanageable nausea and vomiting(18) []f. New-onset or uncontrolled central diabetes insipidus(19)(20) []g. Clinically significant dehydration(18)(21) []h. Hypoglycemia(22) []i. Acidosis (pH less than 7.35) or alkalosis (pH greater than 7.45)( 22)(23) []j. Toxic drug level that indicates need for specific monitoring or treatment(24)(25) []k. Severe electrolyte abnormalities indicated by ALL of the following( 1)(2)(3): []i. Electrolytes and associated findings are not as expected for patient baseline or acceptable treatment effects. []ii. Severe abnormalities indicated by ANY ONE of the following: []1) Sodium less than 130 mEq/L (mmol/L) (new) []2) Sodium less than 135 mEq/L (mmol/L) with ANY ONE of the following: []A. Uncorrectable (to near normal or chronic baseline) after trial of outpatient and emergency treatment []B. Altered mental status []C. Seizures []D. Severe medical etiology requiring inpatient management (eg , heart failure, hypovolemia) []3) Sodium greater than 155 mEq/L (mmol/L) []4) Sodium greater than 150 mEq/L (mmol/L) with ANY ONE of the following: []A. Uncorrectable (to near normal or chronic baseline) with outpatient and emergency treatment []B. Altered mental status []C. Seizures []D. Severe medical etiology (eg, hypovolemia, diabetes insipidus) []5) Potassium less than 2.5 mEq/L (mmol/L) despite outpatient and emergency treatment []6) Potassium less than 3 mEq/L (mmol/L) with ANY ONE of the following : []A. Weakness []B. Cardiac abnormality (eg, arrhythmia, conduction disturbance ) []C. Cardiac ischemia []D. Ileus []E. Ongoing medical cause requiring inpatient management (eg, acute renal wasting or SIADH) []F. Other severe symptoms []7) Potassium greater than 6.5 mEq/L (mmol/L) []8) Potassium greater than 5 mEq/L (mmol/L) with ANY ONE of the following: []A. Uncorrectable (to near normal or chronic baseline) with outpatient and emergency treatment []B. Severe ECG findings[A] []C. Acute worsening of renal failure (creatinine greater than 2.5 mg/dL (221 micromoles/L) or significant elevation for age and size) []D. Severe weakness []E. Severe medical etiology (eg, hemolysis, infection, drug overdose) []9) Calcium less than 7 mg/dL (1.75 mmol/L) despite outpatient and emergency treatment(5) []10) Calcium less than 8 mg/dL (2 mmol/L) with significant symptoms or findings (eg, altered mental status, muscle spasms, seizures, breathing difficulty, cardiac abnormality (eg, arrhythmia or conduction disturbance))(5) []11) Calcium greater than 14 mg/dL (3.5 mmol/L)(5) []12) Calcium greater than 12 mg/dL (3 mmol/L) with ANY ONE of the following(5): []A. Uncorrectable (to near normal or chronic baseline) with outpatient and emergency treatment []B. Significant dehydration or hypovolemia as indicated by ALL of the following(3)(6)(7): []a. Not resolved with initial treatments []b. Clinically significant dehydration as indicated by ANY ONE of the following: [](1) Vomiting refractory to outpatient treatment (ie, precluding oral rehydration) [](2) Inability to drink [](3) Hypernatremia or other electrolyte abnormality unable to be corrected with outpatient and emergency treatment [](4) Failure to remain hydrated with outpatient therapy [](5) Reduced urine output [](6) Hypotension [](7) Serious cause for dehydration requiring acute hospitalization ( eg, bowel obstruction, increased intracranial pressure, infectious cause) [](8) Child with ANY ONE of the following(8): [](i) Severe abdominal tenderness [](ii) Adequate care not available at home [](iii) Severe dehydration (greater than 9% loss of body weight) []C. Significant symptoms or findings (eg, altered mental status , cardiac abnormality (eg, arrhythmia, conduction disturbance), malignant etiology requiring inpatient treatment) []13) Phosphorus less than 1 mg/dL (0.32 mmol/L) []14) Phosphorus less than 1.5 mg/dL (0.48 mmol/L) with ANY ONE of the following: []A. Patient unresponsive to outpatient and emergency treatment []B. Significant symptoms or findings (eg, weakness, altered mental status, breathing difficulty, seizures, rhabdomyolysis) []15) Phosphorus greater than 10 mg/dL (3.2 mmol/L) []16) Phosphorus greater than 4.5 mg/dL (1.45 mmol/L) (new) with ANY ONE of the following: []A. Severe medical etiology (eg, crush injury, acute renal failure) []B. Associated hypocalcemia with significant findings (eg, neurologic symptoms, altered mental status, muscle spasms, seizures, breathing difficulty, cardiac abnormality (eg, arrhythmia, conduction disturbance)) []16) Magnesium less than 1 mg/dL (0.41 mmol/L) []17) Magnesium less than 1.5 mg/dL (0.62 mmol/L) with ANY ONE of the following: []A. Patient unresponsive to outpatient and emergency treatment []B. Associated hypocalcemia with significant findings (eg, altered mental status, muscle spasms, seizures, breathing difficulty, cardiac abnormality (eg, arrhythmia, conduction disturbance)) []C. Associated hypokalemia (potassium less than 3 mEq/L (mmol/L )) with risk of arrhythmia []18) Magnesium greater than 4 mEq/L (2 mmol/L) []19) Magnesium greater than 2.5 mEq/L (1.25 mmol/L) with significant symptoms or findings (eg, weakness, altered mental status, cardiac abnormality (eg, arrhythmia, conduction disturbance), breathing difficulty, severe medical etiology (eg, renal failure, hypovolemia)) []20) Uric acid greater than 20 mg/dL (1190 micromoles/L)(9) []21) Uric acid greater than 8 mg/dL (476 micromoles/L) with significant symptoms or findings of tumor lysis syndrome (eg, creatinine greater than 1.5 times upper limit of normal, cardiac abnormality (eg , arrhythmia, conduction disturbance), seizure)(9) []III. High fever or other high-risk infection situation as indicated by ANY ONE of the following(26)(27)(28): []a. Outpatient and observation care antimicrobial treatment unavailable, not effective, or not appropriate []b. Documented bacteremia []c. Temperature greater than 104.9 degrees F (40.5 degrees C) (oral) []d. Temperature greater than 103.1 degrees F (39.5 degrees C) (oral) or less than 96.8 degrees F (36 degrees C) (rectal) that does not respond to emergency treatment and observation care []IV. High-risk febrile neutropenia[A] as indicated by ANY ONE of the following(29)(30)(31)(32): []a. Profound neutropenia[B] anticipated to extend for more than 7 days []b. Hemodynamic instability []c. Hypoxemia []d. Tachypnea []e. Altered mental status []f. New-onset abdominal pain []g. New-onset vomiting or diarrhea []h. Oral or gastrointestinal mucositis that interferes with swallowing or causes severe diarrhea []i. Focal infection (eg, cellulitis, pneumonia, central line or catheter infection, perirectal abscess) []j. Renal insufficiency (eg, GFR of less than 30 mL/min/1.73m2 (0.5 mL/sec /1.73m2)). []k. Severe liver dysfunction (transaminase levels greater than 5 times normal) []l. Platelet count less than 50,000/mm3 (50 x109/L)(33) []m. Leukemia or lymphoma induction therapy []n. Leukemia not in complete remission or with evidence of disease progression []o. Bone marrow transplant patient []p. Alemtuzumab being used for therapy []q. [employer] Association for Supportive Care in Cancer (MASCC) Risk Index score of less than 21[C](33)(35). []V. Isolation required (eg, tuberculosis that requires isolation, Ebola infection)[D](36)(37)(38)(39)(40) []. Gangrene that requires treatment beyond emergency or observation level care(41)(42) []VII. Antitoxin administration and ongoing observation required (eg, tetanus, botulism)(43)(44) []. Suspected infection with rapid progression or severe symptoms as indicated by ANY ONE of the following(45): []a. Streptococcal or staphylococcal toxic shock(46) []b. Diphtheria(47) []c. Hantavirus(48) []d. Severe acute respiratory syndrome(8)(49) []e. Anthrax(50) []f. Ebola[D](36)(37)(38) []g. Necrotizing soft tissue infection(41)(42) []h. Plague(50) []i. Other suspected infection that requires care beyond emergency or observation level care []VII. Severe adverse drug or systemic toxin reaction as indicated by ANY ONE of the following(24): []a. Serotonin syndrome(51)(52) []b. Neuroleptic malignant syndrome(51)(52) []c. Cholinergic syndrome with severe symptoms (eg, bronchorrhea, weakness , mental status changes, seizures)(53) []d. Anticholinergic syndrome []e. Sympathetic syndrome with severe symptoms (eg, seizures, mental status changes, cardiac dysrhythmias) []f. Other severe adverse drug or systemic toxin reaction that remains after emergency or observation level care (as appropriate) [X]VIII. Allergic reaction with severe symptoms (not responsive to emergency or observation care treatment as appropriate), including ANY ONE of the following(54): [X]a. Airway edema (pharyngeal, epiglottic, or laryngeal edema) []b. Stridor []c. Respiratory failure []d. Bronchospasm []e. Hypotension []IX. Environmental emergency (not responsive to emergency or observation care treatment as appropriate) as indicated by ANY ONE of the following(55)(56): []a. Hyperthermia []b. Heat stroke []c. Heat exhaustion []d. Hypothermia (temperature less than 95 degrees F (35 degrees C) rectal) (57) []e. Electrocution(58) []X. Complications of transplanted organ (ie, not covered elsewhere)[E] indicated by ANY ONE of the following(59): []a. Acute graft rejection (or graft vs. host disease)[F] requiring inpatient management (eg, intravenous immunosuppression)(60)(61)(62)( 63) []b. Acute failure of transplanted organ necessitating inpatient care (eg, cannot be managed in other setting) []c. Infection requiring inpatient management (eg, Hemodynamic instability, need for intravenous antimicrobial treatment)(64)(65) []d. Other complication of transplanted organ requiring inpatient management []XI. Systemic or Infectious Condition condition, symptom, or finding for which emergency and observation care have failed or are not considered appropriate. See General Criteria: Observation Care, General Admission Criteria or Pediatric General Admission Criteria guideline as appropriate. The original [facility] content created by [facility] has been revised. The portions of the content which have been revised are identified through the use of italic text or in bold and [facility] has neither reviewed nor approved the modified material. All other unmodified content is copyright [facility]. Please see references footnoted in the original [facility] edition 2016 Admission Criteria Met: Yes
[2017-05-06 09:05] VITALS: BP 118/64
[2017-05-06 09:29] LABS: Basophils % (Manual) 0 % (0.0-1.8); Blastocytes % (Manual) 0 %; Eosinophils % (Manual) 0 % (0.0-4.3)
[2017-05-06 09:30] LABS: Diff Status Complete; Hypochromasia 1+; Platelet Estimate Consistent w Auto
[2017-05-06] MEDS: LOVENOX SUB-Q SCH (09:58)
[2017-05-06] MEDS: LEVAQUIN PO SCH (09:58)
[2017-05-06] MEDS: FLONASE NS SCH (09:59)
== END 2017-05-06 12:00 | disposition home or self-care (01) | DRG 915 ==
LOC: ED 22:37 → 3A 05-05 03:58
PROVIDERS: ADMIT Internal Medicine; ATTEND Internal Medicine
DX: T78.40XA Allergy, unspecified, initial encounter (principal); J96.00 Acute respiratory failure, unspecified whether with hypoxia or hypercapnia; J32.9 Chronic sinusitis, unspecified; E66.8 Other obesity; K21.9 Gastro-esophageal reflux disease without esophagitis; E03.9 Hypothyroidism, unspecified; Z68.32 Body mass index [BMI] 32.0-32.9, adult; Z82.49 Family history of ischemic heart disease and other diseases of the circulatory system
CPT/HCPCS: 36415; 70360; 80048; 82550; 85007; 85025; 94640; J1200; J1650; J2930

== ENCOUNTER 2017-05-12 14:42 | Emergency (ER) | payer MEDICARE ==
[2017-05-12 16:02] LABS: Basophils % (Auto) 0.2 % (0.0-1.8); Eosinophils % (Auto) 3.9 % (0.0-4.3); Hematocrit 40.2 % (30.3-42.9); Mean Corpuscular HGB Conc 33 % (30-34); Mean Corpuscular Hemoglobin 26 pg (28-32); Mean Corpuscular Volume 81 fl (79-97); Platelet Count 203 K/mm3 (140-440); Red Blood Count 4.97 M/mm3 (3.65-5.03); Red Cell Distribution Width 16.7 % (13.2-15.2)
[2017-05-12 16:09] LABS: Urine Drugs of Abuse Note Disclamer
[2017-05-12 16:23] LABS: Creatine Kinase MB 2.8 ng/mL (0.0-4.0)
[2017-05-12 16:26] LABS: Alanine Aminotransferase 19 units/L (7-56); Albumin 4.1 g/dL (3.9-5); Albumin/Globulin Ratio 1.4 %; Alkaline Phosphatase 59 units/L (35-129); Anion Gap 17 mmol/L; Blood Urea Nitrogen 12 mg/dL (7-17); Calcium 9.1 mg/dL (8.4-10.2); Carbon Dioxide 28 mmol/L (22-30); Chloride 98.4 mmol/L (98-107); Glucose 88 mg/dL (65-100); Potassium 3.7 mmol/L (3.6-5.0); Sodium 140 mmol/L (137-145)
[2017-05-12 16:27] LABS: Creatine Kinase 147 units/L (30-135)
[2017-05-12 16:38] LABS: Bilirubin,Urine NEG (Negative); Blood,Urine NEG (Negative); Ketones,Urine NEG (Negative); Leukocyte Esterase,Urine NEG (Negative); Nitrite,Urine NEG (Negative); Protein,Urine <15 mg/dL mg/dL (Negative); Urobilinogen,Urine < 2.0 mg/dL (<2.0); WBC,Urine < 1.0 /HPF (0.0-6.0)
[2017-05-12] MEDS ORDERED: DELTASONE PO ONE (20:30)
[2017-05-12] MEDS ORDERED: PROVENTIL IH ONE (20:30)
--- NOTE | 2017-05-12 20:39 | Emergency Department Report ---
HPI - General Chief Complaint: Medical Clearance Time Seen by Provider: 05/12/17 20:12 - HPI HPI: This is a 46-year-old Afro-Honduran female presents to the emergency department with complaint of "feeling funny" and nearly passing out after she inhaled some fumes through her before meals vent in her car earlier today while at [employer]. She thinks that it could be something wrong with her car as she just had a new fuel pump installed or that she was smelling the fumes from a car in front of her. However whenever she was inhaling made her feel as if she was going to pass out although she never did. She thought she was doing better but at [employer] today she started getting symptoms again and said that it was "taking over her whole body." She has a history of significant asthma that has required intubations in the past. She also has a history of chronic sinusitis. She has a primary care physician but has not been able to see them regarding her symptoms. She did try one or 2 nebulized breathing treatments at home with some transient relief. No recent travel or sick contacts at home. ED Past Medical Hx - Past Medical History Hx Hypertension: No Hx Heart Attack/AMI: No Hx Congestive Heart Failure: No Hx Diabetes: No Hx Deep Vein Thrombosis: No Hx Pulmonary Embolism: No Hx GERD: Yes Hx Liver Disease: No Hx Renal Disease: No Hx Sickle Cell Disease: No Hx Arthritis: No Hx Seizures: No Hx Kidney Stones: No Hx Asthma: Yes Hx COPD: No Hx Tuberculosis: No Hx Dementia: No Hx HIV: No Additional medical history: sinus problems / ABD HERNIA. Prior Intubations. - Surgical History Hx Coronary Stent: No Hx Open Heart Surgery: No Hx Pacemaker: No Hx Internal Defibrillator: No Hx Cholecystectomy: No Hx Appendectomy: No Hx Breast Surgery: No Additional Surgical History: x4, umbilical hernia repair, sinus surgeries, D&C. thyroid removal - Social History Smoking Status: Never Smoker Substance Use Type: None - Medications Home Medications: Home Medications Medication Instructions Recorded Confirmed Last Taken Type Levothyroxine Sodium 137 mcg PO QAM 04/17/17 04/17/17 04/16/17 History [Levothyroxine] metroNIDAZOLE [Flagyl TAB] 500 mg PO Q12H 04/17/17 04/17/17 04/17/17 History ALBUTEROL NEB's [Proventil 0.083% 2.5 mg IH TID PRN #60 nebu 04/28/17 Unknown Rx NEBS] Fluticasone [Flonase] 100 mcg NS QDAY 7 Days 05/06/17 Unknown Rx Levofloxacin [Levaquin TAB] 500 mg PO Q24HR #5 tablet 05/06/17 Unknown Rx Meclizine [Antivert] 25 mg PO BID PRN #10 tablet 05/13/17 Unknown Rx predniSONE [Deltasone] 20 mg PO BID #8 tab 05/13/17 Unknown Rx ED Review of Systems ROS: Stated complaint: FOOD POISONING/CARBON MONOXIDE Other details as noted in HPI Comment: All other systems reviewed and negative Constitutional: denies: chills, fever Eyes: denies: eye pain, eye discharge, vision change ENT: denies: ear pain, throat pain Respiratory: shortness of breath, wheezing Cardiovascular: denies: palpitations Gastrointestinal: denies: abdominal pain, nausea, diarrhea Genitourinary: denies: urgency, dysuria, discharge Musculoskeletal: denies: back pain, joint swelling, arthralgia Skin: denies: rash, lesions Neurological: other (dizziness). denies: headache Physical Exam - Physical Exam Vital Signs: Vital Signs 05/12/17 05/12/17 15:11 19:50 Temperature 98.7 F Pulse Rate 90 77 Respiratory 18 14 Rate Blood Pressure 114/77 123/66 O2 Sat by Pulse 98 97 Oximetry Physical Exam: GENERAL: The patient is well-developed well-nourished. HEENT: Normocephalic. Atraumatic. Extraocular motions are intact. Patient has moist mucous membranes. Pupils equal reactive to light bilaterally. No nystagmus. NECK: Supple. Trachea is midline. CHEST/LUNGS: Mild expiratory wheezing. No cough heard. No tachypnea or accessory muscle use. There is no respiratory distress noted. HEART/CARDIOVASCULAR: Regular. There is no tachycardia. There is no gallop rub or murmur. ABDOMEN: Abdomen is soft, nontender. Patient has normal bowel sounds. There is no abdominal distention. SKIN: Skin is warm and dry. NEURO: The patient is awake, alert, and oriented. The patient is cooperative. The patient has no focal neurologic deficits. The patient has normal speech and gait. Cranial nerves II through XII grossly intact. MUSCULOSKELETAL: There is no tenderness or deformity. There is no limitation range of motion. There is no evidence of acute injury. ED Course Vital Signs 05/12/17 05/12/17 15:11 19:50 Temperature 98.7 F Pulse Rate 90 77 Respiratory 18 14 Rate Blood Pressure 114/77 123/66 O2 Sat by Pulse 98 97 Oximetry ED Medical Decision Making - Lab Data Result diagrams: 05/12/17 15:39 05/12/17 15:39 - EKG Data -: EKG Interpreted by Me EKG shows normal: sinus rhythm, axis, intervals, QRS complexes, ST-T waves Rate: normal - EKG Data When compared to previous EKG there are: previous EKG unavailable Interpretation: normal EKG - Radiology Data Radiology results: report reviewed CT angiography of the chest does not show any Pulmonary embolism, dissection or any acute process. - Medical Decision Making 46-year-old female presents the emergency department with the complaint of some shortness of breath dizziness and some nonspecific funny feeling she got after some type of inhalation in her car earlier in the day. EKG did not show any signs of ST elevation [place], ischemia or dysrhythmia. Labs are mostly unremarkable including negative troponins 2, no electrolyte abnormalities, no renal insufficiency or glucose abnormalities. She did have a slightly elevated and equivocal d-dimer so a CT angiography of the chest was done that did not show any pulmonary embolism, dissection or any acute process. She did not have any focal, motor or sensory deficits. Cranial nerves are intact. She was given some steroids, breathing treatment and later on a GI cocktail. She was reevaluated multiple times over multiple hours and has improved. Vital signs stable throughout her ED course. The patient was seen ambulatory in the emergency department and appears stable at doing so. Overall the patient appears and feels improved. She appears safe for discharge home to follow up with primary care and has been encouraged to return to the emergency department with any worsening of her symptoms or any acute distress. - Differential Diagnosis vertigo, bronchospasm, pneumonia, [place] Critical Care Time: No Critical care attestation.: If time is entered above; I have spent that time in minutes in the direct care of this critically ill patient, excluding procedure time. ED Disposition Clinical Impression: Bronchospasm, Dizziness, Inhalation injury Disposition: - TO HOME OR SELFCARE Is pt being admited?: No Condition: Stable Instructions: Vertigo (ED), Dyspnea (ED), Dizziness (ED), Bronchospasm (ED) Additional Instructions: Please follow-up with your primary care physician in the next few days. I also given a referral for a local control operator flow coat, Dr. Tai. Return to the emergency department with any worsening of your symptoms or any acute distress. Prescriptions: Meclizine [Antivert] 25 mg PO BID PRN #10 tablet PRN Reason: Vertigo predniSONE [Deltasone] 20 mg PO BID #8 tab Referrals: HIWOT BRUNO MD [Staff Physician] - 3-5 Days YAN TAI MD [Staff Physician] - 3-5 Days Time of Disposition: 02:27
[2017-05-12] MEDS ORDERED: NACL ONE (23:15)
--- NOTE | 2017-05-13 02:01 | Cat Scan Report ---
FINAL REPORT PROCEDURE: CT ANGIO CHEST TECHNIQUE: Computerized tomographic angiography of the chest was performed after the IV injection of iodinated nonionic contrast including image processing. The image data was postprocessed using 2-dimensional multiplanar reformatted (MPR) and 3-dimensional (MIP and/or volume rendered) techniques. HISTORY: CP, Elevated dimer COMPARISON: 07/04/2016 FINDINGS: Heart and pericardium: Normal. Thoracic aorta: Normal. Pulmonary vasculature: There is no evidence of pulmonary arterial emboli. Lymph nodes: No enlarged thoracic lymph nodes. Lungs: The lungs are clear without infiltrate, effusion or pneumothorax. The central airway is patent. Pleural space: No effusion, thickening, or pneumothorax. Musculoskeletal structures: No significant abnormality. Upper abdominal structures: No significant abnormality. IMPRESSION: There is no evidence of pulmonary arterial emboli. The lungs are clear without infiltrate, effusion or pneumothorax.
[2017-05-13 02:20] VITALS: BP 131/75
[2017-05-13] MEDS ORDERED: ALUM-MAG HYDROX-SIMETH 200-200-20MG/5ML PO ONE (03:14)
== END 2017-05-13 03:20 | disposition home or self-care (01) ==
LOC: ED 14:42
DX: J45.909 Unspecified asthma, uncomplicated (principal); K21.9 Gastro-esophageal reflux disease without esophagitis
CPT/HCPCS: 36415; 71275; 80053; 80307; 81001; 82375; 82550; 82553; 84439; 84443; 84484; 85025; 85379; 93005; 93010; 99284; G0480; J7512; Q9967; 80320

== ENCOUNTER 2017-05-27 17:13 | Emergency (ER) | payer MEDICARE ==
[2017-05-27 18:44] VITALS: BP 121/61
[2017-05-27 19:16] LABS: Basophils % (Auto) 0.4 % (0.0-1.8); Eosinophils % (Auto) 3.8 % (0.0-4.3); Hematocrit 39.8 % (30.3-42.9); Hemoglobin 12.9 gm/dl (10.1-14.3); Mean Corpuscular HGB Conc 32 % (30-34); Mean Corpuscular Volume 80 fl (79-97); Platelet Count 194 K/mm3 (140-440); Red Blood Count 4.96 M/mm3 (3.65-5.03); Red Cell Distribution Width 16.9 % (13.2-15.2); White Blood Count 7.6 K/mm3 (4.5-11.0)
[2017-05-27 19:27] LABS: Mean Corpuscular Hemoglobin 26 pg (28-32)
[2017-05-27 19:31] LABS: Anion Gap 18 mmol/L; Blood Urea Nitrogen 12 mg/dL (7-17); Carbon Dioxide 24 mmol/L (22-30); Chloride 107.9 mmol/L (98-107); Glucose 104 mg/dL (65-100); Potassium 4.2 mmol/L (3.6-5.0); Sodium 146 mmol/L (137-145)
== END 2017-05-28 00:15 | disposition left against medical advice (07) ==
LOC: ED 17:13
DX: R10.9 Unspecified abdominal pain (principal); R07.9 Chest pain, unspecified; Z53.21 Procedure and treatment not carried out due to patient leaving prior to being seen by health care provider
CPT/HCPCS: 36415; 80048; 84484; 85025; 93005; 93010

== ENCOUNTER 2017-05-30 16:13 | Emergency (ER) | payer MEDICARE ==
[2017-05-30 16:26] VITALS: BP 122/77
[2017-05-30 17:06] LABS: Basophils % (Auto) 0.4 % (0.0-1.8); Eosinophils % (Auto) 5.2 % (0.0-4.3); Hematocrit 40.5 % (30.3-42.9); Hemoglobin 12.9 gm/dl (10.1-14.3); Mean Corpuscular HGB Conc 32 % (30-34); Mean Corpuscular Hemoglobin 26 pg (28-32); Mean Corpuscular Volume 82 fl (79-97); Platelet Count 228 K/mm3 (140-440); Red Blood Count 4.93 M/mm3 (3.65-5.03); Red Cell Distribution Width 17.4 % (13.2-15.2); White Blood Count 7.8 K/mm3 (4.5-11.0)
[2017-05-30 17:25] LABS: Anion Gap 19 mmol/L; BUN/Creatinine Ratio 12.22; Blood Urea Nitrogen 11 mg/dL (7-17); Calcium 9.2 mg/dL (8.4-10.2); Carbon Dioxide 23 mmol/L (22-30); Chloride 106.6 mmol/L (98-107); Glucose 100 mg/dL (65-100); Potassium 3.8 mmol/L (3.6-5.0); Sodium 145 mmol/L (137-145)
[2017-05-30] MEDS ORDERED: DUONEB *Not for PRN Use IH ONE ×2 (17:25→18:10)
[2017-05-30] MEDS ORDERED: DELTASONE PO ONE (17:25)
[2017-05-30] MEDS ORDERED: ULTRAM PO ONE (17:26)
[2017-05-30] MEDS ORDERED: ULTRAM ONE (17:32)
--- NOTE | 2017-05-30 17:51 | Emergency Department Report ---
ED General Adult HPI - General Chief complaint: Adult Asthma Stated complaint: ASTHMA/CHESTPAIN Time Seen by Provider: 05/30/17 17:14 Source: patient Mode of arrival: Wheelchair Limitations: No Limitations - History of Present Illness Initial comments: pt is a 46 y/o aaf with hx of asthma usually controlled with albuterol nebs / inhaler used daily , seen in ed on 05/27-eloped, and 05/12 tx for veritgo ,and frequent visits - for similar symptoms pt states that shes has primary care doctor but is almost out of albuterol nebs, states that chest tightness today is 8/10 intitially , exacerbated by walking long distances, pt advised adherence to medications but she still gets short of breath , associated symptoms include chest pain with cough, and chest tightness, Onset/Timin -: week(s) Location: chest Radiation: non-radiation Severity scale (0 -10): 6 Quality: sharp Consistency: intermittent Improves with: medication Worsens with: other (acvtivity and environmental stimuli ) Associated Symptoms: chest pain, cough, shortness of breath. denies: diaphoresis, fever/chills, headaches, loss of appetite, malaise, nausea/vomiting , rash, seizure, syncope, weakness Treatments Prior to Arrival: other (albuterol inhaler ) - Related Data Home Medications Medication Instructions Recorded Confirmed Last Taken Levothyroxine Sodium 137 mcg PO QAM 04/17/17 04/17/17 04/16/17 [Levothyroxine] metroNIDAZOLE [Flagyl TAB] 500 mg PO Q12H 04/17/17 04/17/17 04/17/17 Previous Rx's Medication Instructions Recorded Last Taken Type ALBUTEROL NEB's [Proventil 0.083% 2.5 mg IH TID PRN #60 nebu 04/28/17 Unknown Rx NEBS] Fluticasone [Flonase] 100 mcg NS QDAY 7 Days 05/06/17 Unknown Rx Levofloxacin [Levaquin TAB] 500 mg PO Q24HR #5 tablet 05/06/17 Unknown Rx Meclizine [Antivert] 25 mg PO BID PRN #10 tablet 05/13/17 Unknown Rx predniSONE [Deltasone] 20 mg PO BID #8 tab 05/13/17 Unknown Rx ALBUTEROL NEB's [Proventil 0.083% 2.5 mg IH QID PRN #25 nebu 05/30/17 Unknown Rx NEBS] Fluticasone/Salmeterol [Advair 1 puff IH BID #1 disk.w.dev 05/30/17 Unknown Rx Diskus 500-50 mcg] predniSONE [Deltasone] 40 mg PO QDAY #10 tab 05/30/17 Unknown Rx Allergies Allergy/AdvReac Type Severity Reaction Status Date / Time doxycycline Allergy Rash Verified 05/30/17 16:20 famotidine [From Pepcid] Allergy Hives Verified 05/30/17 16:20 ketorolac tromethamine Allergy Anaphylaxis Verified 05/30/17 16:20 [From Toradol] Latex, Natural Rubber Allergy Angioedema Verified 05/30/17 16:20 morphine Allergy Shortness Verified 05/30/17 16:20 of Breath tiotropium bromide Allergy Anaphylaxis Verified 05/30/17 16:20 [From Spiriva with HandiHaler] azithromycin [From Zithromax] AdvReac Anaphylaxis Verified 05/30/17 16:20 NSAIDS (Non-Steroidal AdvReac Anaphylaxis Verified 05/30/17 16:20 Anti-Inflamma Penicillins AdvReac Hives Verified 05/30/17 16:20 ED Review of Systems ROS: Stated complaint: ASTHMA/CHESTPAIN Other details as noted in HPI Constitutional: denies: chills, fever Eyes: denies: eye pain, eye discharge, vision change ENT: denies: ear pain, throat pain Respiratory: cough, shortness of breath, wheezing Cardiovascular: chest pain Endocrine: no symptoms reported Gastrointestinal: denies: abdominal pain, nausea, diarrhea Genitourinary: denies: urgency, dysuria, discharge Musculoskeletal: denies: back pain, joint swelling, arthralgia Neurological: denies: headache, weakness, paresthesias Psychiatric: anxiety Hematological/Lymphatic: denies: easy bleeding, easy bruising ED Past Medical Hx - Past Medical History Hx Hypertension: No Hx Heart Attack/AMI: No Hx Congestive Heart Failure: No Hx Diabetes: No Hx Deep Vein Thrombosis: No Hx Pulmonary Embolism: No Hx GERD: Yes Hx Liver Disease: No Hx Renal Disease: No Hx Sickle Cell Disease: No Hx Arthritis: No Hx Seizures: No Hx Kidney Stones: No Hx Asthma: Yes Hx COPD: No Hx Tuberculosis: No Hx Dementia: No Hx HIV: No Additional medical history: sinus problems --chronic sinusitis / ABD HERNIA. Prior Intubations. - Surgical History Hx Coronary Stent: No Hx Open Heart Surgery: No Hx Pacemaker: No Hx Internal Defibrillator: No Hx Cholecystectomy: No Hx Appendectomy: No Hx Breast Surgery: No Additional Surgical History: x4, umbilical hernia repair, sinus surgeries, D&C. thyroid removal - Social History Smoking Status: Never Smoker Substance Use Type: None - Medications Home Medications: Home Medications Medication Instructions Recorded Confirmed Last Taken Type Levothyroxine Sodium 137 mcg PO QAM 04/17/17 04/17/17 04/16/17 History [Levothyroxine] metroNIDAZOLE [Flagyl TAB] 500 mg PO Q12H 04/17/17 04/17/17 04/17/17 History ALBUTEROL NEB's [Proventil 0.083% 2.5 mg IH TID PRN #60 nebu 04/28/17 Unknown Rx NEBS] Fluticasone [Flonase] 100 mcg NS QDAY 7 Days 05/06/17 Unknown Rx Levofloxacin [Levaquin TAB] 500 mg PO Q24HR #5 tablet 05/06/17 Unknown Rx Meclizine [Antivert] 25 mg PO BID PRN #10 tablet 05/13/17 Unknown Rx predniSONE [Deltasone] 20 mg PO BID #8 tab 05/13/17 Unknown Rx ALBUTEROL NEB's [Proventil 0.083% 2.5 mg IH QID PRN #25 nebu 05/30/17 Unknown Rx NEBS] Fluticasone/Salmeterol [Advair 1 puff IH BID #1 disk.w.dev 05/30/17 Unknown Rx Diskus 500-50 mcg] predniSONE [Deltasone] 40 mg PO QDAY #10 tab 05/30/17 Unknown Rx ED Physical Exam - General Limitations: No Limitations General appearance: alert, in no apparent distress, anxious - Head Head exam: Present: atraumatic, normocephalic - Eye Eye exam: Present: normal appearance, PERRL, EOMI Pupils: Present: normal accommodation - ENT ENT exam: Present: mucous membranes moist, TM's normal bilaterally - Neck Neck exam: Present: normal inspection, full ROM. Absent: tenderness, lymphadenopathy, thyromegaly - Respiratory Respiratory exam: Present: wheezes, chest wall tenderness, accessory muscle use - Expanded Respiratory Exam Expanded Location: Wheezes: Right, Left, Upper - Cardiovascular Cardiovascular Exam: Present: regular rate, normal rhythm, normal heart sounds. Absent: systolic murmur, diastolic murmur, rubs, gallop - GI/Abdominal GI/Abdominal exam: Present: soft, normal bowel sounds. Absent: distended, tenderness, guarding, rebound, organomegaly, mass, bruit - Rectal Rectal exam: Present: deferred - Extremities Exam Extremities exam: Present: normal inspection, full ROM, normal capillary refill. Absent: tenderness, pedal edema, joint swelling, calf tenderness - Back Exam Back exam: Present: normal inspection, full ROM. Absent: CVA tenderness (R), CVA tenderness (L) - Neurological Exam Neurological exam: Present: alert, oriented X3, normal gait, reflexes normal - Psychiatric Psychiatric exam: Present: anxious - Skin Skin exam: Present: warm, dry, intact, normal color. Absent: rash ED Course Vital Signs 05/30/17 05/30/17 16:21 17:31 Temperature 98.2 F Pulse Rate 91 H Respiratory 22 22 Rate Blood Pressure 122/77 O2 Sat by Pulse 97 Oximetry - Reevaluation(s) Reevaluation #1: reassessment: pt advised breathing improved: exp wheezes throughout, improved, duoneb x 2 and mag 2gm iv, plan ambulation and reassess status. pt verbalized agreement and understanding with tx plan. 05/30/17 18:27 05/30/17 18:28 05/30/17 19:15 pt states breathing improved ambulated ed department without increased wheezing or sob, lungs mild expiratory wheezing, plan steroids, zpack , refill nebs, and qvair pt will follow up with her pcp in 3 days pt verbalized understanding and agreement with discharge plan. ED Medical Decision Making - Lab Data Result diagrams: 05/30/17 16:54 05/30/17 16:54 - EKG Data EKG shows normal: sinus rhythm, axis, intervals, QRS complexes, ST-T waves Rate: normal - EKG Data When compared to previous EKG there are: changes noted Interpretation: normal EKG - Medical Decision Making pt is a 46 y/o aaf with hx of asthma usually controlled with albuterol nebs / inhaler used daily , seen in ed on 05/27-eloped, and 8/6 tx for veritgo ,and frequent visits - for similar symptoms pt states that shes has primary care doctor but is almost out of albuterol nebs, states that chest tightness today is 8/10 intitially , exacerbated by walking long distances, pt advised adherence to medications but she still gets short of breath , associated symptoms include chest pain with cough, and chest tightness. Exam: pt does not appear ill , ENT: TM clear, nose: no swelling no obstruction no polyps, pharynx : moderate eythema no exudate no lesion uvula midline no stridor airway is patent, lungs: bilat exp wheezes upper lobes, deminished bilat lower lobes, OTA <3 sec bilat no warner, cv: S1 S2 no MRG no PND no edema, Plan: prednisone, duoneb. reassess. Critical care attestation.: If time is entered above; I have spent that time in minutes in the direct care of this critically ill patient, excluding procedure time. ED Disposition Clinical Impression: Asthma exacerbation Disposition: TO HOME OR SELFCARE Is pt being admited?: No Does the pt Need Aspirin: No Condition: Good Instructions: Asthma (ED) Prescriptions: ALBUTEROL NEB's [Proventil 0.083% NEBS] 2.5 mg IH QID PRN #25 nebu PRN Reason: wheezing / sob Fluticasone/Salmeterol [Advair Diskus 500-50 mcg] 1 puff IH BID #1 disk.w.dev predniSONE [Deltasone] 40 mg PO QDAY #10 tab Referrals: PRIMARY CARE, [Primary Care Provider] - 3-5 Days Forms: Work/School Release Form(ED) Time of Disposition: 19:24
[2017-05-30] MEDS ORDERED: MAGNESIUM SULFATE 2GM/50ML 2 GM/50 ML BAG IV ONE (18:10)
--- NOTE | 2017-05-31 07:16 | XRay Report ---
CHEST 2 VIEWS INDICATION: Shortness of breath. COMPARISON: 03/01/2017 FINDINGS: PA and lateral chest radiographs again demonstrate normal cardiomediastinal silhouette. Mild atelectasis or scarring near the cardiac apex possible. Clear remainder lungs without pleural effusions or CHF. Intact bones. CONCLUSION: Slight left basilar atelectasis or scarring. Thank you for the opportunity to participate in this patient's care.
== END 2017-05-30 19:35 | disposition home or self-care (01) ==
LOC: ED 16:13
DX: J45.901 Unspecified asthma with (acute) exacerbation (principal); K21.9 Gastro-esophageal reflux disease without esophagitis; Z88.0 Allergy status to penicillin; Z88.8 Allergy status to other drugs, medicaments and biological substances; Z88.6 Allergy status to analgesic agent; Z88.1 Allergy status to other antibiotic agents; Z91.040 Latex allergy status
CPT/HCPCS: 36415; 71020; 80048; 84484; 85025; 93005; 93010; 94640; 96365; 99284; J3475; J7512

== ENCOUNTER 2017-06-11 00:37 | Emergency (ER) | payer MEDICARE ==
[2017-06-11 01:35] LABS: Alanine Aminotransferase 14 units/L (7-56); Albumin 3.6 g/dL (3.9-5); Albumin/Globulin Ratio 1.3 %; Alkaline Phosphatase 65 units/L (35-129); Anion Gap 14 mmol/L; Bilirubin,Total < 0.20 mg/dL (0.1-1.2); Blood Urea Nitrogen 8 mg/dL (7-17); Calcium 8.8 mg/dL (8.4-10.2); Carbon Dioxide 26 mmol/L (22-30); Chloride 102.6 mmol/L (98-107); Glucose 119 mg/dL (65-100); Lipase 33 units/L (13-60); Potassium 4.1 mmol/L (3.6-5.0); Sodium 138 mmol/L (137-145); Total Protein 6.4 g/dL (6.3-8.2)
[2017-06-11 01:39] LABS: Basophils % (Auto) 0.2 % (0.0-1.8); Eosinophils % (Auto) 1.8 % (0.0-4.3); Hematocrit 38.2 % (30.3-42.9); Mean Corpuscular HGB Conc 32 % (30-34); Mean Corpuscular Hemoglobin 26 pg (28-32); Mean Corpuscular Volume 83 fl (79-97); Platelet Count 221 K/mm3 (140-440); Red Blood Count 4.59 M/mm3 (3.65-5.03); White Blood Count 15.8 K/mm3 (4.5-11.0)
[2017-06-11 04:49] LABS: Bilirubin,Urine NEG (Negative); Blood,Urine NEG (Negative); Ketones,Urine NEG (Negative); Leukocyte Esterase,Urine NEG (Negative); Mucus,Urine FEW /HPF; Nitrite,Urine NEG (Negative); Protein,Urine <15 mg/dL mg/dL (Negative); RBC,Urine < 1.0 /HPF (0.0-6.0); Urobilinogen,Urine < 2.0 mg/dL (<2.0); WBC,Urine < 1.0 /HPF (0.0-6.0)
--- NOTE | 2017-06-11 06:23 | Emergency Department Report ---
ED Dizziness HPI - General Chief Complaint: Abdominal Pain Stated Complaint: ABD PAIN Time Seen by Provider: 06/11/17 06:08 Source: patient Mode of arrival: Ambulatory Limitations: No Limitations - History of Present Illness Initial Comments: 46-year-old female here with complaint of lightheadedness dizziness. Patient states she woke up in bed and felt dizzy. States she decided to walk around to stop that would make her feel better. She continued to feel lightheaded while she was ambulating and then laid down again. Currently she has none of the symptoms. She also had some nausea while with the symptoms and some mild abdominal pain. Denies fevers chills. Denies chest pain. MD Complaint: dizziness -: Sudden Timing: sudden onset Description: sense of movement, lightheadedness History of Same: Yes History of Trauma: No Severity: mild Associated Symptoms: denies: denies other symptoms, ataxia, chest pain, confusion, diaphoresis, fever/chills, loss of appetite, malaise, seizure, shortness of breath - Related Data Previous Rx's Medication Instructions Recorded Last Taken Type Levothyroxine Sodium 137 mcg PO QAM #30 tablet 06/07/17 Unknown Rx [Levothyroxine] Pantoprazole [Protonix TAB] 40 mg PO QDAY #30 tablet 06/07/17 Unknown Rx Allergies Allergy/AdvReac Type Severity Reaction Status Date / Time doxycycline Allergy Rash Verified 05/30/17 16:20 famotidine [From Pepcid] Allergy Hives Verified 05/30/17 16:20 ketorolac tromethamine Allergy Anaphylaxis Verified 05/30/17 16:20 [From Toradol] Latex, Natural Rubber Allergy Angioedema Verified 05/30/17 16:20 morphine Allergy Shortness Verified 05/30/17 16:20 of Breath tiotropium bromide Allergy Anaphylaxis Verified 05/30/17 16:20 [From Spiriva with HandiHaler] azithromycin [From Zithromax] AdvReac Anaphylaxis Verified 05/30/17 16:20 NSAIDS (Non-Steroidal AdvReac Anaphylaxis Verified 05/30/17 16:20 Anti-Inflamma Penicillins AdvReac Hives Verified 05/30/17 16:20 ED Review of Systems ROS: Stated complaint: ABD PAIN Other details as noted in HPI Comment: All other systems reviewed and negative Constitutional: denies: chills, fever Eyes: denies: eye pain, eye discharge, vision change ENT: denies: ear pain, throat pain Respiratory: denies: cough, shortness of breath, wheezing Cardiovascular: denies: chest pain, palpitations Endocrine: no symptoms reported Gastrointestinal: denies: abdominal pain, nausea, diarrhea Genitourinary: denies: urgency, dysuria, discharge Musculoskeletal: denies: back pain, joint swelling, arthralgia Skin: denies: rash, lesions Neurological: denies: headache, weakness, paresthesias Psychiatric: denies: anxiety, depression Hematological/Lymphatic: denies: easy bleeding, easy bruising ED Past Medical Hx - Past Medical History Previous Medical History?: Yes Hx Hypertension: No Hx Heart Attack/AMI: No Hx Congestive Heart Failure: No Hx Diabetes: No Hx Deep Vein Thrombosis: No Hx Pulmonary Embolism: No Hx GERD: Yes Hx Liver Disease: No Hx Renal Disease: No Hx Sickle Cell Disease: No Hx Arthritis: No Hx Seizures: No Hx Kidney Stones: No Hx Asthma: Yes Hx COPD: No Hx Tuberculosis: No Hx Dementia: No Hx HIV: No Additional medical history: sinus problems --chronic sinusitis / ABD HERNIA. Prior Intubations. Obesity. - Surgical History Past Surgical History?: Yes Hx Coronary Stent: No Hx Open Heart Surgery: No Hx Pacemaker: No Hx Internal Defibrillator: No Hx Cholecystectomy: No Hx Appendectomy: No Hx Breast Surgery: No Additional Surgical History: x4, umbilical hernia repair, sinus surgeries, D&C. thyroid removal - Social History Smoking Status: Never Smoker Substance Use Type: None - Medications Home Medications: Home Medications Medication Instructions Recorded Confirmed Last Taken Type Levothyroxine Sodium 137 mcg PO QAM #30 tablet 06/07/17 Unknown Rx [Levothyroxine] Pantoprazole [Protonix TAB] 40 mg PO QDAY #30 tablet 06/07/17 Unknown Rx ED Physical Exam - General Limitations: No Limitations General appearance: alert, in no apparent distress - Head Head exam: Present: atraumatic, normocephalic - Eye Eye exam: Present: normal appearance. Absent: scleral icterus, conjunctival injection - ENT ENT exam: Present: mucous membranes moist - Neck Neck exam: Present: normal inspection - Respiratory Respiratory exam: Present: normal lung sounds bilaterally. Absent: respiratory distress, wheezes, rales - Cardiovascular Cardiovascular Exam: Present: regular rate, normal rhythm. Absent: systolic murmur, diastolic murmur, rubs, gallop - GI/Abdominal GI/Abdominal exam: Present: soft, distended, normal bowel sounds. Absent: tenderness, guarding, rebound - Extremities Exam Extremities exam: Present: normal inspection - Back Exam Back exam: Present: normal inspection - Neurological Exam Neurological exam: Present: alert, oriented X3, CN II-XII intact, normal gait. Absent: motor sensory deficit - Expanded Neurological Exam Expanded Speech: Present: fluid speech Cerebellar function: Finger to Nose: Normal, Heel to Long: Normal - Psychiatric Psychiatric exam: Present: normal affect, normal mood - Skin Skin exam: Present: warm, dry, intact, normal color. Absent: rash ED Course Vital Signs 06/11/17 06/11/17 06/11/17 00:50 04:53 07:13 Temperature 98.2 F 97.8 F Pulse Rate 81 70 79 Respiratory 17 16 18 Rate Blood Pressure 110/69 Blood Pressure 106/53 90/62 [Left] O2 Sat by Pulse 97 100 99 Oximetry ED Medical Decision Making - Lab Data Result diagrams: 06/11/17 01:01 06/11/17 01:01 Laboratory Results - last 24 hr 06/11/17 06/11/17 06/11/17 01:01 01:01 04:28 WBC 15.8 H RBC 4.59 Hgb 12.0 Hct 38.2 MCV 83 MCH 26 L MCHC 32 RDW 17.0 H Plt Count 221 Lymph % (Auto) 18.1 [place] % (Auto) 9.9 H Eos % (Auto) 1.8 Baso % (Auto) 0.2 Lymph # 2.9 [place] # 1.6 H Eos # 0.3 Baso # 0.0 Seg Neutrophils % 70.0 Seg Neutrophils # 11.1 H Sodium 138 Potassium 4.1 Chloride 102.6 Carbon Dioxide 26 Anion Gap 14 BUN 8 Creatinine 0.8 Estimated GFR > 60 BUN/Creatinine Ratio 10.00 Glucose 119 H Calcium 8.8 Total Bilirubin < 0.20 AST 15 ALT 14 Alkaline Phosphatase 65 Total Protein 6.4 Albumin 3.6 L Albumin/Globulin Ratio 1.3 Lipase 33 Urine Color Yellow Urine Turbidity Clear Urine pH 6.0 Ur Specific [place] 1.012 Urine Protein <15 mg/dl Urine Glucose (UA) Neg Urine Ketones Neg Urine Blood Neg Urine Nitrite Neg Urine Bilirubin Neg Urine Urobilinogen < 2.0 Ur Leukocyte Esterase Neg Urine WBC (Auto) < 1.0 Urine RBC (Auto) < 1.0 U Epithel Cells (Auto) 1.0 Hyaline Casts 1 Urine Mucus Few Urine HCG, Qual Negative - EKG Data -: EKG Interpreted by Me - EKG Data 06/11/17 08:04 Sinus 69 and normal axis normal intervals and no ST-T wave changes. Patient has mild ST elevation in multiple leads likely related to early repolarization. - Medical Decision Making 46-year-old female here with complaint of lightheadedness and abdominal pain. Patient states she had several episodes of lightheadedness that is now resolved. She also complained of some mild abdominal pain which is currently resolved as well. Clinical exam shows a distended abdomen but otherwise no other focal findings. Her neurological exam is unremarkable. Labs showed a slightly elevated white blood count 15.8 but otherwise no notable findings. She appears otherwise well. She is tolerating by mouth. Plan to discharge home with follow-up with PCP. Reexamined patient. Patient without any tenderness in the abdomen. Plan to discharge home. Portions of this chart were dictated with dictation software. There may be dictation errors contained within this note. Critical care attestation.: If time is entered above; I have spent that time in minutes in the direct care of this critically ill patient, excluding procedure time. ED Disposition Clinical Impression: GERD (gastroesophageal reflux disease), Nausea, Lightheadedness Disposition: -01 TO HOME OR SELFCARE Is pt being admited?: No Condition: Stable Instructions: Lightheadedness (ED) Additional Instructions: Follow up with [facility] [phone] Referrals: HIWOT BRUNO MD [Primary Care Provider] - 3-5 Days
[2017-06-11 07:25] VITALS: BP 90/62
== END 2017-06-11 08:21 | disposition home or self-care (01) ==
LOC: ED 00:37
DX: K21.9 Gastro-esophageal reflux disease without esophagitis (principal); J45.909 Unspecified asthma, uncomplicated; Z88.0 Allergy status to penicillin; Z88.8 Allergy status to other drugs, medicaments and biological substances; Z88.6 Allergy status to analgesic agent; Z88.1 Allergy status to other antibiotic agents; Z91.040 Latex allergy status
CPT/HCPCS: 36415; 80053; 81001; 81025; 83690; 85025; 93005; 93010; 99283

== ENCOUNTER 2017-06-19 00:54 | Emergency (ER) | payer MEDICARE ==
[2017-06-19] MEDS ORDERED: PROVENTIL IH ONE (02:16)
--- NOTE | 2017-06-19 04:55 | XRay Report ---
FINAL REPORT PROCEDURE: XR CHEST ROUTINE 2V TECHNIQUE: PA and lateral chest radiographs were obtained. CPT 54376 HISTORY: wheezing COMPARISON: 03/01/2017 FINDINGS: Heart: Normal. Mediastinum/Vessels: Normal. Lungs/Pleural space: The lungs are clear and expanded. There are no infiltrates, effusions or pneumothoraces.. Bony thorax: No acute osseous abnormality. Other: IMPRESSION: There is no acute cardiopulmonary abnormality..
--- NOTE | 2017-06-19 05:02 | Emergency Department Report ---
ED Asthma HPI - General Chief Complaint: Adult Asthma Stated Complaint: ASTHMA Time Seen by Provider: 06/19/17 04:38 Source: patient Mode of arrival: Ambulatory Limitations: No Limitations - History of Present Illness Initial Comments: this is a 46-year-old female nontoxic, well nourished in appearance, no acute signs of distress presents to the ED complaining of asthma exacerbation and difficulty breathing. Patient stated she has a history of chronic asthma as a child that takes albuterol as needed. Patient stated during asthma exacerbation she received Solu-Medrol IM and discharged with prednisone orally with significant relief. Patient denies any chest pain, shortness of breath, fever, chills, stiff neck, nausea, vomiting, headache, blurry vision. Patient states she does have a primary care doctor that she sees for her asthma both unable to follow up with him today. Patient states sulcus and allergies and past medical history includes asthma and GERD. MD Complaint: "asthma attack", wheezing -: Gradual, days(s) (1) Asthma History: childhood onset, history of frequent attac Severity: mild Context: none known Associated Symptoms: none. denies: productive cough, dry cough, fever, chest pain, hemoptysis, leg edema, syncope - Related Data Current Asthma Therapy: inhaled bronchodilator Previous Rx's Medication Instructions Recorded Last Taken Type Levothyroxine Sodium 137 mcg PO QAM #30 tablet 06/07/17 Unknown Rx [Levothyroxine] Pantoprazole [Protonix TAB] 40 mg PO QDAY #30 tablet 06/07/17 Unknown Rx ALBUTEROL Inhaler [ProAir HFA 2 puff IH QID PRN #1 inhalation 06/19/17 Unknown Rx Inhaler] predniSONE [Deltasone] 20 mg PO BID #10 tab 06/19/17 Unknown Rx Allergies Allergy/AdvReac Type Severity Reaction Status Date / Time doxycycline Allergy Rash Verified 05/30/17 16:20 famotidine [From Pepcid] Allergy Hives Verified 05/30/17 16:20 ketorolac tromethamine Allergy Anaphylaxis Verified 05/30/17 16:20 [From Toradol] Latex, Natural Rubber Allergy Angioedema Verified 05/30/17 16:20 morphine Allergy Shortness Verified 05/30/17 16:20 of Breath tiotropium bromide Allergy Anaphylaxis Verified 05/30/17 16:20 [From Spiriva with HandiHaler] azithromycin [From Zithromax] AdvReac Anaphylaxis Verified 05/30/17 16:20 NSAIDS (Non-Steroidal AdvReac Anaphylaxis Verified 05/30/17 16:20 Anti-Inflamma Penicillins AdvReac Hives Verified 05/30/17 16:20 ED Review of Systems ROS: Stated complaint: ASTHMA Other details as noted in HPI Constitutional: denies: chills, fever Eyes: denies: eye pain, eye discharge, vision change ENT: denies: ear pain, throat pain Respiratory: wheezing. denies: cough, shortness of breath Cardiovascular: denies: chest pain, palpitations Endocrine: no symptoms reported Gastrointestinal: denies: abdominal pain, nausea, diarrhea Genitourinary: denies: urgency, dysuria, discharge Musculoskeletal: denies: back pain, joint swelling, arthralgia Skin: denies: rash, lesions Neurological: denies: headache, weakness, paresthesias Psychiatric: denies: anxiety, depression Hematological/Lymphatic: denies: easy bleeding, easy bruising ED Past Medical Hx - Past Medical History Previous Medical History?: Yes Hx Hypertension: No Hx Heart Attack/AMI: No Hx Congestive Heart Failure: No Hx Diabetes: No Hx Deep Vein Thrombosis: No Hx Pulmonary Embolism: No Hx GERD: Yes Hx Liver Disease: No Hx Renal Disease: No Hx Sickle Cell Disease: No Hx Arthritis: No Hx Seizures: No Hx Kidney Stones: No Hx Asthma: Yes Hx COPD: No Hx Tuberculosis: No Hx Dementia: No Hx HIV: No Additional medical history: sinus problems --chronic sinusitis / ABD HERNIA. Prior Intubations. Obesity. - Surgical History Past Surgical History?: Yes Hx Coronary Stent: No Hx Open Heart Surgery: No Hx Pacemaker: No Hx Internal Defibrillator: No Hx Cholecystectomy: No Hx Appendectomy: No Hx Breast Surgery: No Additional Surgical History: x4, umbilical hernia repair, sinus surgeries, D&C. thyroid removal - Social History Smoking Status: Current Every Day Smoker Substance Use Type: None - Medications Home Medications: Home Medications Medication Instructions Recorded Confirmed Last Taken Type Levothyroxine Sodium 137 mcg PO QAM #30 tablet 06/07/17 Unknown Rx [Levothyroxine] Pantoprazole [Protonix TAB] 40 mg PO QDAY #30 tablet 06/07/17 Unknown Rx ALBUTEROL Inhaler [ProAir HFA 2 puff IH QID PRN #1 inhalation 06/19/17 Unknown Rx Inhaler] predniSONE [Deltasone] 20 mg PO BID #10 tab 06/19/17 Unknown Rx ED Physical Exam - General Limitations: No Limitations General appearance: alert, in no apparent distress - Head Head exam: Present: atraumatic, normocephalic, normal inspection - Eye Eye exam: Present: normal appearance, PERRL, EOMI. Absent: scleral icterus, conjunctival injection, nystagmus, periorbital swelling, periorbital tenderness Pupils: Present: normal accommodation - ENT ENT exam: Present: normal exam, normal orophraynx, mucous membranes moist, TM's normal bilaterally, normal external ear exam - Neck Neck exam: Present: normal inspection, full ROM. Absent: tenderness, meningismus, lymphadenopathy, thyromegaly - Respiratory Respiratory exam: Present: normal lung sounds bilaterally. Absent: respiratory distress, wheezes, rales, rhonchi, stridor, chest wall tenderness, accessory muscle use, decreased breath sounds, prolonged expiratory - Cardiovascular Cardiovascular Exam: Present: regular rate, normal rhythm, normal heart sounds. Absent: bradycardia, tachycardia, irregular rhythm, systolic murmur, diastolic murmur, rubs, gallop - GI/Abdominal GI/Abdominal exam: Present: soft, normal bowel sounds. Absent: distended, tenderness, guarding, rebound, rigid, diminished bowel sounds - Rectal Rectal exam: Present: deferred - Extremities Exam Extremities exam: Present: normal inspection, full ROM, normal capillary refill. Absent: tenderness, pedal edema, joint swelling, calf tenderness - Back Exam Back exam: Present: normal inspection, full ROM. Absent: tenderness, CVA tenderness (R), CVA tenderness (L), muscle spasm, paraspinal tenderness, vertebral tenderness, rash noted - Neurological Exam Neurological exam: Present: alert, oriented X3, CN II-XII intact, normal gait, reflexes normal - Psychiatric Psychiatric exam: Present: normal affect, normal mood - Skin Skin exam: Present: warm, dry, intact, normal color. Absent: rash ED Course Vital Signs 06/19/17 06/19/17 06/19/17 01:04 02:22 02:42 Temperature 97.6 F Pulse Rate 78 Pulse Rate [ 72 84 Anterior Bilateral Throughout] Respiratory 20 Rate Respiratory 14 16 Rate [Anterior Bilateral Throughout] Blood Pressure 127/64 O2 Sat by Pulse 95 Oximetry 06/19/17 04:20 Temperature Pulse Rate 78 Pulse Rate [ Anterior Bilateral Throughout] Respiratory 18 Rate Respiratory Rate [Anterior Bilateral Throughout] Blood Pressure O2 Sat by Pulse 98 Oximetry - Reevaluation(s) Reevaluation #1: 06/19/17 05:01 Patient is speaking in full sentences with no signs of distress. ED Medical Decision Making - Medical Decision Making This is a 46-year-old female that presents with asthma exacerbation. Patient is stable. Patient was examined myself. Patient received DuoNeb and albuterol prior to my interview. Upon my interview there is no any signs of any difficulty breathing, shortness of breath, or wheezing upon auscultation. Patient stated that her symptoms have since subsided after medical treatment in the ED. Chest x-ray has been obtained with negative findings of any abnormalities. Dictated by radiologist. Patient was notified of x-ray results with no further questions nor by the patient. Patient received Solu-Medrol 125 mg in the ED. Patient also received 40 mg prednisone 5 days at the time of discharge. Patient was instructed to follow-up with her primary care doctor in 3-5 days or if symptoms worsen and continue return to the emergency room as soon as possible. At time time of discharge, the patient does not seem toxic or ill in appearance. No acute signs of distress noted. Patient agrees to discharge treatment plan of care. No further questions noted by the patient. Critical care attestation.: If time is entered above; I have spent that time in minutes in the direct care of this critically ill patient, excluding procedure time. ED Disposition Clinical Impression: Asthma exacerbation Disposition: DC-01 TO HOME OR SELFCARE Is pt being admited?: No Does the pt Need Aspirin: No Condition: Stable Instructions: Asthma (ED), Prednisone (By mouth) Additional Instructions: follow-up with your primary care doctor in 3-5 days or if symptoms worsen and continue return to the emergency room as soon as possible. Prescriptions: ALBUTEROL Inhaler [ProAir HFA Inhaler] 2 puff IH QID PRN #1 inhalation PRN Reason: Shortness Of Breath predniSONE [Deltasone] 20 mg PO BID #10 tab Referrals: PRIMARY CARE, [Primary Care Provider] - 3-5 Days DUANE MILLIGAN MD [Staff Physician] - 3-5 Days [facility] [Outside] - 3-[address] [facility] [place] [Outside] - 3-5 Days Forms: Work/School Release Form(ED)
[2017-06-19 06:27] VITALS: BP 144/86
[2017-06-19] MEDS ORDERED: DUONEB *Not for PRN Use IH SCH (08:00)
== END 2017-06-19 06:27 | disposition home or self-care (01) ==
LOC: ED 00:54
DX: J45.901 Unspecified asthma with (acute) exacerbation (principal); K21.9 Gastro-esophageal reflux disease without esophagitis; F17.200 Nicotine dependence, unspecified, uncomplicated
CPT/HCPCS: 71020; 94640; 96372; 99283; J2930

== ENCOUNTER 2017-06-25 17:51 | Emergency (ER) | payer MEDICARE ==
[2017-06-25] MEDS ORDERED: DUONEB *Not for PRN Use IH ONE (20:19)
[2017-06-25] MEDS ORDERED: PROVENTIL IH ONE ×2 (20:20→20:21)
[2017-06-25 20:55] LABS: Basophils % (Auto) 0.3 % (0.0-1.8); Eosinophils % (Auto) 4.7 % (0.0-4.3); Hematocrit 39.9 % (30.3-42.9); Hemoglobin 12.9 gm/dl (10.1-14.3); Mean Corpuscular HGB Conc 33 % (30-34); Mean Corpuscular Hemoglobin 27 pg (28-32); Mean Corpuscular Volume 82 fl (79-97); Platelet Count 230 K/mm3 (140-440); Red Blood Count 4.86 M/mm3 (3.65-5.03); Red Cell Distribution Width 16.8 % (13.2-15.2); White Blood Count 10.4 K/mm3 (4.5-11.0)
[2017-06-25 21:12] LABS: Anion Gap 16 mmol/L; BUN/Creatinine Ratio 16.25; Blood Urea Nitrogen 13 mg/dL (7-17); Calcium 8.9 mg/dL (8.4-10.2); Carbon Dioxide 28 mmol/L (22-30); Chloride 101.5 mmol/L (98-107); Glucose 95 mg/dL (65-100); Sodium 141 mmol/L (137-145)
[2017-06-26 03:31] LABS: Bilirubin,Urine NEG (Negative); Blood,Urine MOD (Negative); Ketones,Urine NEG (Negative); Leukocyte Esterase,Urine TR (Negative); Nitrite,Urine NEG (Negative); Urobilinogen,Urine < 2.0 mg/dL (<2.0)
[2017-06-26 03:32] LABS: RBC,Urine > 182.0 /HPF (0.0-6.0)
--- NOTE | 2017-06-26 06:26 | Emergency Department Report ---
HPI - General Chief Complaint: Dyspnea/Respdistress Time Seen by Provider: 06/26/17 06:02 - HPI HPI: This is a 46-year-old female who presents to the emergency department with complaint of a two-week history of abnormal vaginal bleeding that has gotten to the point where she is bleeding very heavy and says she is using about 7 pads per hour. She has an [employer], Dr. Janneth Escobedo, but has not seen her regarding her symptoms and she says "it takes months to get an appointment. " She is otherwise not taking anything for her symptoms but a presentation. She began having some shortness of breath earlier today and used one for nebulized treatments and said it went away but it is starting to come back with some wheezing but she denies any cough. She denies any chest pain, fever, back pain, diaphoresis but does complain of some generalized dizziness. No recent travel or sick contacts at home. She has a past medical history of asthma and chronic sinus problems. ED Past Medical Hx - Past Medical History Previous Medical History?: Yes Hx Hypertension: No Hx Heart Attack/AMI: No Hx Congestive Heart Failure: No Hx Diabetes: No Hx Deep Vein Thrombosis: No Hx Pulmonary Embolism: No Hx GERD: Yes Hx Liver Disease: No Hx Renal Disease: No Hx Sickle Cell Disease: No Hx Arthritis: No Hx Seizures: No Hx Kidney Stones: No Hx Asthma: Yes Hx COPD: No Hx Tuberculosis: No Hx Dementia: No Hx HIV: No Additional medical history: sinus problems --chronic sinusitis / ABD HERNIA. Prior Intubations. Obesity. - Surgical History Past Surgical History?: Yes Hx Coronary Stent: No Hx Open Heart Surgery: No Hx Pacemaker: No Hx Internal Defibrillator: No Hx Cholecystectomy: No Hx Appendectomy: No Hx Breast Surgery: No Additional Surgical History: x4, umbilical hernia repair, sinus surgeries, D&C. thyroid removal - Social History Smoking Status: Never Smoker Substance Use Type: None - Medications Home Medications: Home Medications Medication Instructions Recorded Confirmed Last Taken Type Levothyroxine Sodium 137 mcg PO QAM #30 tablet 06/07/17 06/26/17 06/25/17 Rx [Levothyroxine] Pantoprazole [Protonix TAB] 40 mg PO QDAY #30 tablet 06/07/17 06/26/17 06/25/17 Rx ALBUTEROL Inhaler [ProAir HFA 2 puff IH QID PRN #1 inhalation 06/19/17 06/26/17 06/25/17 Rx Inhaler] ALBUTEROL NEB's [Proventil 0.083% 2.5 mg IH TID PRN #30 neb 06/19/17 06/26/17 Rx NEBS] predniSONE [Deltasone] 20 mg PO BID #10 tab 06/19/17 06/26/17 06/25/17 Rx ED Review of Systems ROS: Stated complaint: LOSING ALOT OF BLOOD/DIZZY Other details as noted in HPI Comment: All other systems reviewed and negative Constitutional: denies: chills, fever Eyes: denies: eye pain, eye discharge, vision change ENT: denies: ear pain, throat pain Respiratory: shortness of breath, wheezing. denies: cough Cardiovascular: denies: chest pain, palpitations Gastrointestinal: abdominal pain. denies: nausea, vomiting Genitourinary: other (vaginal bleeding). denies: dysuria Musculoskeletal: denies: back pain, joint swelling, arthralgia Skin: denies: rash, lesions Neurological: other (dizziness). denies: headache Physical Exam - Physical Exam Vital Signs: Vital Signs 06/25/17 06/26/17 06/26/17 19:52 02:30 03:00 Temperature 98.2 F Pulse Rate 77 71 75 Respiratory 22 14 20 Rate Blood Pressure 147/64 Blood Pressure 107/58 112/64 [Left] O2 Sat by Pulse 96 95 100 Oximetry 06/26/17 05:00 Temperature Pulse Rate 80 Respiratory 16 Rate Blood Pressure Blood Pressure 101/60 [Left] O2 Sat by Pulse 100 Oximetry Physical Exam: GENERAL: The patient is well-developed well-nourished. HENT: Normocephalic. Atraumatic. Patient has moist mucous membranes. EYES: Extraocular motions are intact. Pupils equal reactive to light bilaterally. NECK: Supple. Trachea is midline. CHEST/LUNGS: Clear to auscultation. No tachypnea or accessory muscle use. There is no respiratory distress noted. HEART/CARDIOVASCULAR: Regular. There is no tachycardia. There is no gallop rub or murmur. ABDOMEN: Abdomen is soft, nontender. Patient has normal bowel sounds. There is no abdominal distention. SKIN: Skin is warm and dry. NEURO: The patient is awake, alert, and oriented. The patient is cooperative. The patient has no focal neurologic deficits. The patient has normal speech. MUSCULOSKELETAL: There is no tenderness or deformity. There is no limitation range of motion. There is no evidence of acute injury. ED Course Vital Signs 06/25/17 06/26/17 06/26/17 19:52 02:30 03:00 Temperature 98.2 F Pulse Rate 77 71 75 Respiratory 22 14 20 Rate Blood Pressure 147/64 Blood Pressure 107/58 112/64 [Left] O2 Sat by Pulse 96 95 100 Oximetry 06/26/17 05:00 Temperature Pulse Rate 80 Respiratory 16 Rate Blood Pressure Blood Pressure 101/60 [Left] O2 Sat by Pulse 100 Oximetry - Consultations Consultation #1: I spoke to Dr. Amado of [facility] [employer], authorization representative for Dr. Escobedo, who says that the patient sounds like she needs a endometrial biopsy and then after that may be placed on Premarin but she has suggested that the patient can be discharged directly to their office where they will evaluate her. 06/26/17 08:30 ED Medical Decision Making - Lab Data Result diagrams: 06/25/17 20:22 06/25/17 20:22 - EKG Data -: EKG Interpreted by Me EKG shows normal: sinus rhythm, axis, intervals, QRS complexes, ST-T waves ( nonspecific ST-T waves) Rate: normal - EKG Data When compared to previous EKG there are: previous EKG unavailable Interpretation: nonspecific ST-T wave eli - Radiology Data Radiology results: report reviewed, image reviewed interpreted by me: Chest x-ray does not show any acute process. There are no pleural effusions, obvious pneumonia and there is no pneumothorax. ULTRASOUND PELVIS DUPLEX DOPPLER COMPLETE ULTRASOUND TRANSVAGINAL HISTORY: Pelvic pain, heavy vaginal bleeding. TECHNIQUE: Transabdominal and transvaginal ultrasound with color and spectral doppler interrogation. Compared to the CT abdomen pelvis with contrast dated 02/16/17. The uterus is anteflexed and measures 12.7 x 5.0 x 5.9 cm. The uterus is mildly enlarged and heterogeneous suggesting fibroids disease although no discrete, large, submucosal fibroids are appreciated. Endometrial stripe measures 8 mm. There are multiple nabothian cysts in the cervix measuring up to 1.5 cm. The right ovary measures 4.1 x 3.3 x 4.9 cm. A 3.4 x 2.9 cm cyst is identified in the right ovary. The left ovary measures 4.2 x 2.6 x 3.0 cm. A 1.9 x 1.9 cm cyst is identified in the left ovary. Spectral Doppler waveforms demonstrate arterial flow to both ovaries. No pelvic fluid collection. IMPRESSION: Bilateral ovarian cysts as described. Mildly enlarged uterus although no large fibroids are detected. Small intramural fibroids could be present. The endometrium is unremarkable. - Medical Decision Making 46-year-old female presents to the emergency department with complaint of a two- week history of heavy but abnormal menstrual bleeding. This is caused her to have some shortness of breath and/or some dizziness. She does not appear to be in any acute distress. No focal, motor or sensory deficits. Chest x-ray does not show any signs of pneumonia, pleural effusions or any acute process. A transvaginal ultrasound was done that did not show any endometrial abnormalities or obvious reasons for the bleeding. Hemoglobin was stable at about 14. Vital signs stable throughout her ED course. The rest of the labs are unremarkable. I spoke to Dr. Amado at [email or web address] [employer] who says the patient needs to come to their office today as she may need some Premarin but will need a endometrial biopsy prior to this. All this information was given to the patient and she understands and agrees to the plan. - Differential Diagnosis malignancy, fibroids, Critical Care Time: No Critical care attestation.: If time is entered above; I have spent that time in minutes in the direct care of this critically ill patient, excluding procedure time. ED Disposition Clinical Impression: Vaginal hemorrhage, Shortness of breath Disposition: DC-01 TO HOME OR SELFCARE Is pt being admited?: No Condition: Stable Instructions: Dysfunctional Uterine Bleeding (ED), Dyspnea (ED), Menorrhagia ( ED) Additional Instructions: Please go to see Dr. Escobedo immediately today. Return to the emergency Department with any worsening of her symptoms or any acute distress. Referrals: PRIMARY CARE, [Primary Care Provider] - 3-5 Days JANNETH ESCOBEDO MD [Staff Physician] - [facility] (Per Dr Amado, go directly to see Dr Escobedo after discharge) Time of Disposition: 09:48
--- NOTE | 2017-06-26 07:25 | XRay Report ---
AP CHEST: HISTORY: Shortness of breath AP view of the chest demonstrates a normal mediastinal and cardiac contour with clear lungs and normal bony and soft tissue structures. IMPRESSION: Unremarkable AP chest. No significant change since 06/19/17.
--- NOTE | 2017-06-26 07:48 | Ultrasound Report ---
ULTRASOUND PELVIS DUPLEX DOPPLER COMPLETE ULTRASOUND TRANSVAGINAL HISTORY: Pelvic pain, heavy vaginal bleeding. TECHNIQUE: Transabdominal and transvaginal ultrasound with color and spectral doppler interrogation. Compared to the CT abdomen pelvis with contrast dated 02/16/17. The uterus is anteflexed and measures 12.7 x 5.0 x 5.9 cm. The uterus is mildly enlarged and heterogeneous suggesting fibroids disease although no discrete, large, submucosal fibroids are appreciated. Endometrial stripe measures 8 mm. There are multiple nabothian cysts in the cervix measuring up to 1.5 cm. The right ovary measures 4.1 x 3.3 x 4.9 cm. A 3.4 x 2.9 cm cyst is identified in the right ovary. The left ovary measures 4.2 x 2.6 x 3.0 cm. A 1.9 x 1.9 cm cyst is identified in the left ovary. Spectral Doppler waveforms demonstrate arterial flow to both ovaries. No pelvic fluid collection. IMPRESSION: Bilateral ovarian cysts as described. Mildly enlarged uterus although no large fibroids are detected. Small intramural fibroids could be present. The endometrium is unremarkable.
[2017-06-26 09:02] VITALS: BP 99/47
[2017-06-26 09:37] LABS: INR 0.98 (0.87-1.13)
[2017-06-26 09:38] LABS: Partial Thromboplastin Time 28.9 Sec. (24.2-36.6)
== END 2017-06-26 10:07 | disposition home or self-care (01) ==
LOC: ED 17:51
DX: N93.9 Abnormal uterine and vaginal bleeding, unspecified (principal); R06.02 Shortness of breath; R42 Dizziness and giddiness; K21.9 Gastro-esophageal reflux disease without esophagitis; J45.909 Unspecified asthma, uncomplicated; E66.9 Obesity, unspecified
CPT/HCPCS: 36415; 71010; 76830; 80048; 81001; 84484; 84703; 85025; 85610; 85730; 86850; 86900; 86901; 93005; 93010; 93975

== ENCOUNTER 2017-07-11 11:56 | Emergency (ER) | payer MEDICARE ==
[2017-07-11 12:03] VITALS: BP 142/80
== END 2017-07-11 16:29 | disposition left against medical advice (07) ==
LOC: ED 11:56
DX: Z53.21 Procedure and treatment not carried out due to patient leaving prior to being seen by health care provider (principal)

== ENCOUNTER 2017-07-17 21:00 | Emergency (ER) | payer MEDICARE ==
[2017-07-17 22:05] LABS: Hematocrit 39.5 % (30.3-42.9); Hemoglobin 12.5 gm/dl (10.1-14.3); Mean Corpuscular HGB Conc 32 % (30-34); Mean Corpuscular Hemoglobin 26 pg (28-32); Mean Corpuscular Volume 83 fl (79-97); Platelet Count 225 K/mm3 (140-440); Red Blood Count 4.76 M/mm3 (3.65-5.03); Red Cell Distribution Width 15.8 % (13.2-15.2); White Blood Count 11.9 K/mm3 (4.5-11.0)
[2017-07-17 22:18] LABS: Anion Gap 18 mmol/L; BUN/Creatinine Ratio 9; Blood Urea Nitrogen 8 mg/dL (7-17); Calcium 8.7 mg/dL (8.4-10.2); Carbon Dioxide 23 mmol/L (22-30); Chloride 103.4 mmol/L (98-107); Glucose 105 mg/dL (65-100); Potassium 4.1 mmol/L (3.6-5.0); Sodium 140 mmol/L (137-145)
[2017-07-18 00:57] VITALS: BP 129/74
[2017-07-18] MEDS ORDERED: DUONEB *Not for PRN Use IH ONE (01:43)
--- NOTE | 2017-07-18 07:27 | XRay Report ---
ROUTINE CHEST, TWO VIEWS: HISTORY: chest pain, wheezing. The trachea, heart, mediastinal contour, lung delgado and bony thorax are unremarkable. IMPRESSION: Unremarkable chest x-ray. No significant change since 06/26/17.
== END 2017-07-18 03:44 | disposition left against medical advice (07) ==
LOC: ED 21:00
DX: R07.9 Chest pain, unspecified (principal); J45.909 Unspecified asthma, uncomplicated; Z53.21 Procedure and treatment not carried out due to patient leaving prior to being seen by health care provider
CPT/HCPCS: 36415; 71020; 80048; 84484; 85025; 93005; 93010; 94640

== ENCOUNTER 2017-07-27 22:56 | Inpatient (IN) | payer MEDICARE ==
[2017-07-28 00:02] LABS: Basophils % (Auto) 0.3 % (0.0-1.8); Hemoglobin 12.4 gm/dl (10.1-14.3); Mean Corpuscular HGB Conc 32 % (30-34); Mean Corpuscular Hemoglobin 26 pg (28-32); Mean Corpuscular Volume 83 fl (79-97); Platelet Count 249 K/mm3 (140-440); Red Blood Count 4.71 M/mm3 (3.65-5.03); Red Cell Distribution Width 15.3 % (13.2-15.2); White Blood Count 12.2 K/mm3 (4.5-11.0)
[2017-07-28 00:20] LABS: BUN/Creatinine Ratio 15; Blood Urea Nitrogen 12 mg/dL (7-17); Calcium 8.5 mg/dL (8.4-10.2); Carbon Dioxide 24 mmol/L (22-30); Chloride 101.8 mmol/L (98-107); Glucose 117 mg/dL (65-100); Potassium 3.1 mmol/L (3.6-5.0); Sodium 141 mmol/L (137-145)
[2017-07-28 00:26] LABS: Anion Gap 18 mmol/L
[2017-07-28] MEDS ORDERED: PROVENTIL IH ONE ×2 (06:39→06:40)
[2017-07-28] MEDS ORDERED: TYLENOL PO ONE (06:39)
[2017-07-28] MEDS ORDERED: K-DUR PO ONE (06:39)
[2017-07-28] MEDS ORDERED: ATROVENT IH ONE (06:39)
--- NOTE | 2017-07-28 06:41 | Emergency Department Report ---
ED Chest Pain HPI - General Chief Complaint: Chest Pain Stated Complaint: CHEST PAIN Time Seen by Provider: 07/28/17 06:15 Source: patient, RN notes reviewed, old records reviewed Mode of arrival: Ambulatory Limitations: No Limitations - History of Present Illness Initial Comments: This is a 47-year-old female. I have evaluated this patient in the past. Primary care Dr.: Dr. Shon Oneal Pulmonology: Dr. Edmonds Past medical history: Asthma, obesity, hernia, prior intubations, Patient admitted to this hospital June 2017, had a negative nuclear stress test. Patient presents to the ER complaining of chest pain. The chest pain is central , has been intermittent since 4 PM yesterday. The pain does not radiate to the back, arms or neck. The patient reports shortness of breath, and a sensation of "almost passing out." There is no leg pain, there is no leg swelling, no recent trips greater than 4 hours, recent periods of immobilization. Patient is not taking aspirin and denies cocaine use. She is coughing and wheezing. Her symptoms do not have exacerbating or relieving factors, with the exception of physical activity which increases her symptoms. MD Complaint: chest pain -: Gradual Onset: during rest, during exertion Pain Location: substernal Pain Radiation: none Severity: moderate Severity scale (0 -10): 10 Quality: aching Consistency: intermittent Improves With: rest Worsens With: movement re: dyspnea Other Symptoms: syncope Aspirin use within the Past 7 Days: (0) No - Related Data On Oral Contraceptives: No Previous Rx's Medication Instructions Recorded Last Taken Type Levothyroxine Sodium 137 mcg PO QAM #30 tablet 06/07/17 06/25/17 Rx [Levothyroxine] Pantoprazole [Protonix TAB] 40 mg PO QDAY #30 tablet 06/07/17 06/25/17 Rx ALBUTEROL Inhaler [ProAir HFA 2 puff IH QID PRN #1 inhalation 06/19/17 06/25/17 Rx Inhaler] ALBUTEROL NEB's [Proventil 0.083% 2.5 mg IH TID PRN #30 neb 06/19/17 06/25/17 Rx NEBS] predniSONE [Deltasone] 20 mg PO BID #10 tab 06/19/17 06/25/17 Rx Allergies Allergy/AdvReac Type Severity Reaction Status Date / Time doxycycline Allergy Rash Verified 07/17/17 21:25 famotidine [From Pepcid] Allergy Hives Verified 07/17/17 21:25 ketorolac tromethamine Allergy Anaphylaxis Verified 07/17/17 21:25 [From Toradol] Latex, Natural Rubber Allergy Angioedema Verified 07/17/17 21:25 morphine Allergy Shortness Verified 07/17/17 21:25 of Breath tiotropium bromide Allergy Anaphylaxis Verified 07/17/17 21:25 [From Spiriva with HandiHaler] azithromycin [From Zithromax] AdvReac Anaphylaxis Verified 07/17/17 21:25 NSAIDS (Non-Steroidal AdvReac Anaphylaxis Verified 07/17/17 21:25 Anti-Inflamma Penicillins AdvReac Hives Verified 07/17/17 21:25 Heart Score - HEART Score History: Moderately suspicious EKG: Non-specific Age: 45-65 Risk factors: 1-2 risk factors Troponin: < normal limit HEART Score: 4 - Critical Actions Critical Actions: 4-6 pts:12-16.6% risk of adverse cardiac event. Should be admitted ED Review of Systems ROS: Stated complaint: CHEST PAIN Other details as noted in HPI Constitutional: malaise Eyes: denies: vision change ENT: denies: epistaxis Respiratory: shortness of breath Cardiovascular: chest pain, syncope Gastrointestinal: denies: vomiting Genitourinary: as per HPI Musculoskeletal: as per HPI Skin: as per HPI Neurological: as per HPI Psychiatric: as per HPI ED Past Medical Hx - Past Medical History Hx Hypertension: No Hx Heart Attack/AMI: No Hx Congestive Heart Failure: No Hx Diabetes: No Hx Deep Vein Thrombosis: No Hx Pulmonary Embolism: No Hx GERD: Yes Hx Liver Disease: No Hx Renal Disease: No Hx Sickle Cell Disease: No Hx Arthritis: No Hx Seizures: No Hx Kidney Stones: No Hx Asthma: Yes Hx COPD: No Hx Tuberculosis: No Hx Dementia: No Hx HIV: No Additional medical history: sinus problems --chronic sinusitis / ABD HERNIA. Prior Intubations. Obesity. - Surgical History Hx Coronary Stent: No Hx Open Heart Surgery: No Hx Pacemaker: No Hx Internal Defibrillator: No Hx Cholecystectomy: No Hx Appendectomy: No Hx Breast Surgery: No Additional Surgical History: x4, umbilical hernia repair, sinus surgeries, D&C. thyroid removal - Social History Smoking Status: Never Smoker Substance Use Type: None - Medications Home Medications: Home Medications Medication Instructions Recorded Confirmed Last Taken Type Levothyroxine Sodium 137 mcg PO QAM #30 tablet 06/07/17 06/26/17 06/25/17 Rx [Levothyroxine] Pantoprazole [Protonix TAB] 40 mg PO QDAY #30 tablet 06/07/17 06/26/17 06/25/17 Rx ALBUTEROL Inhaler [ProAir HFA 2 puff IH QID PRN #1 inhalation 06/19/17 06/26/17 06/25/17 Rx Inhaler] ALBUTEROL NEB's [Proventil 0.083% 2.5 mg IH TID PRN #30 neb 06/19/17 06/26/17 Rx NEBS] predniSONE [Deltasone] 20 mg PO BID #10 tab 06/19/17 06/26/17 06/25/17 Rx ED Physical Exam - General Limitations: No Limitations General appearance: alert, in no apparent distress - Head Head exam: Present: atraumatic, normocephalic - Eye Eye exam: Present: normal appearance, EOMI. Absent: nystagmus - ENT ENT exam: Present: normal exam, normal orophraynx, mucous membranes moist, normal external ear exam - Neck Neck exam: Present: normal inspection, full ROM. Absent: tenderness, meningismus - Respiratory Respiratory exam: Present: wheezes, rhonchi. Absent: respiratory distress - Cardiovascular Cardiovascular Exam: Present: regular rate, normal rhythm, normal heart sounds. Absent: bradycardia, tachycardia, irregular rhythm, systolic murmur, diastolic murmur, rubs, gallop - GI/Abdominal GI/Abdominal exam: Present: soft, normal bowel sounds. Absent: distended, tenderness, guarding, rebound, rigid, pulsatile mass - Extremities Exam Extremities exam: Present: normal inspection, full ROM, normal capillary refill. Absent: calf tenderness - Back Exam Back exam: Present: normal inspection, full ROM. Absent: tenderness, CVA tenderness (R), CVA tenderness (L), muscle spasm, paraspinal tenderness, vertebral tenderness - Neurological Exam Neurological exam: Present: alert, oriented X3, normal gait, other (Extraocular movements intact. Tongue midline. No facial droop. Facial sensation intact to light touch in the V1, V2, V3 distribution bilaterally. 5 and 5 strength in 4 extremities.. Sensation is intact to light touch in 4 extremities.). Absent : motor sensory deficit - Psychiatric Psychiatric exam: Present: normal affect, normal mood - Skin Skin exam: Present: warm, dry, intact, normal color. Absent: rash ED Course Vital Signs 07/27/17 07/28/17 07/28/17 23:06 05:37 05:46 Temperature 98.6 F 98.2 F Pulse Rate 93 H 70 Pulse Rate [ Bilateral Upper Lobe] Respiratory 16 12 Rate Respiratory Rate [Bilateral Upper Lobe] Blood Pressure 124/73 Blood Pressure 124/73 107/71 [Left] O2 Sat by Pulse 99 97 99 Oximetry 07/28/17 07/28/17 07/28/17 07:00 07:31 07:43 Temperature Pulse Rate 88 71 Pulse Rate [ 66 Bilateral Upper Lobe] Respiratory 22 Rate Respiratory 18 Rate [Bilateral Upper Lobe] Blood Pressure 108/52 108/52 Blood Pressure [Left] O2 Sat by Pulse 99 Oximetry 07/28/17 07/28/17 07/28/17 07:52 07:53 08:01 Temperature Pulse Rate 62 67 Pulse Rate [ 65 Bilateral Upper Lobe] Respiratory 18 Rate Respiratory 18 Rate [Bilateral Upper Lobe] Blood Pressure 117/71 Blood Pressure [Left] O2 Sat by Pulse 100 Oximetry 07/28/17 07/28/17 07/28/17 08:30 09:00 09:30 Temperature Pulse Rate 88 71 76 Pulse Rate [ Bilateral Upper Lobe] Respiratory 16 14 13 Rate Respiratory Rate [Bilateral Upper Lobe] Blood Pressure 103/53 97/51 98/63 Blood Pressure [Left] O2 Sat by Pulse 94 96 97 Oximetry 07/28/17 07/28/17 07/28/17 10:15 10:30 11:00 Temperature Pulse Rate 73 77 74 Pulse Rate [ Bilateral Upper Lobe] Respiratory 17 15 15 Rate Respiratory Rate [Bilateral Upper Lobe] Blood Pressure 98/63 115/63 107/59 Blood Pressure [Left] O2 Sat by Pulse 95 96 95 Oximetry 07/28/17 07/28/17 11:31 12:00 Temperature Pulse Rate 86 76 Pulse Rate [ Bilateral Upper Lobe] Respiratory 14 11 L Rate Respiratory Rate [Bilateral Upper Lobe] Blood Pressure 107/59 115/71 Blood Pressure [Left] O2 Sat by Pulse 96 95 Oximetry BRYAN score - Bryan Score Age > 65: (0) No Aspirin use within the Past 7 Days: (0) No 3 or more CAD Risk Factors: (0) No 2 or more Angina events in past 24 hrs: (1) Yes Known CAD with more than 50% Stenosis: (0) No Elevated Cardiac Markers: (0) No ST Deviation Greater than 0.5mm: (0) No BRYAN Score: 1 ED Medical Decision Making - Lab Data Result diagrams: 07/27/17 23:25 07/27/17 23:25 Vital Signs 07/27/17 07/28/17 07/28/17 23:06 05:37 05:46 Temperature 98.6 F 98.2 F Pulse Rate 93 H 70 Pulse Rate [ Bilateral Upper Lobe] Respiratory 16 12 Rate Respiratory Rate [Bilateral Upper Lobe] Blood Pressure 124/73 Blood Pressure 124/73 107/71 [Left] O2 Sat by Pulse 99 97 99 Oximetry 07/28/17 07/28/17 07/28/17 07:00 07:31 07:43 Temperature Pulse Rate 88 71 Pulse Rate [ 66 Bilateral Upper Lobe] Respiratory 22 Rate Respiratory 18 Rate [Bilateral Upper Lobe] Blood Pressure 108/52 108/52 Blood Pressure [Left] O2 Sat by Pulse 99 Oximetry 07/28/17 07/28/17 07/28/17 07:52 07:53 08:01 Temperature Pulse Rate 62 67 Pulse Rate [ 65 Bilateral Upper Lobe] Respiratory 18 Rate Respiratory 18 Rate [Bilateral Upper Lobe] Blood Pressure 117/71 Blood Pressure [Left] O2 Sat by Pulse 100 Oximetry Lab Results 07/27/17 07/27/17 07/27/17 Range/Units 23:25 23:25 23:25 WBC 12.2 H (4.5-11.0) K/mm3 RBC 4.71 (3.65-5.03) M/mm3 Hgb 12.4 (10.1-14.3) gm/dl Hct 39.0 (30.3-42.9) % MCV 83 (79-97) fl MCH 26 L (28-32) pg MCHC 32 (30-34) % RDW 15.3 H (13.2-15.2) % Plt Count 249 (140-440) K/mm3 Lymph % (Auto) 24.6 (13.4-35.0) % [place] % (Auto) 10.8 H (0.0-7.3) % Eos % (Auto) 3.0 (0.0-4.3) % Baso % (Auto) 0.3 (0.0-1.8) % Lymph # 3.0 (1.2-5.4) K/mm3 [place] # 1.3 H (0.0-0.8) K/mm3 Eos # 0.4 (0.0-0.4) K/mm3 Baso # 0.0 (0.0-0.1) K/mm3 Seg Neutrophils % 61.3 (40.0-70.0) % Seg Neutrophils # 7.5 (1.8-7.7) K/mm3 Sodium 141 (137-145) mmol/L Potassium 3.1 L (3.6-5.0) mmol/L Chloride 101.8 (98-107) mmol/L Carbon Dioxide 24 (22-30) mmol/L Anion Gap 18 mmol/L BUN 12 (7-17) mg/dL Creatinine 0.8 (0.7-1.2) mg/dL Estimated GFR > 60 ml/min BUN/Creatinine Ratio 15 % Glucose 117 H (65-100) mg/dL Calcium 8.5 (8.4-10.2) mg/dL Magnesium (1.7-2.3) mg/dL Troponin T < 0.010 (0.00-0.029) ng/mL HCG, Qual Negative (Negative) 07/28/17 07/28/17 07/28/17 Range/Units 02:13 02:13 06:48 WBC (4.5-11.0) K/mm3 RBC (3.65-5.03) M/mm3 Hgb (10.1-14.3) gm/dl Hct (30.3-42.9) % MCV (79-97) fl MCH (28-32) pg MCHC (30-34) % RDW (13.2-15.2) % Plt Count (140-440) K/mm3 Lymph % (Auto) (13.4-35.0) % [place] % (Auto) (0.0-7.3) % Eos % (Auto) (0.0-4.3) % Baso % (Auto) (0.0-1.8) % Lymph # (1.2-5.4) K/mm3 [place] # (0.0-0.8) K/mm3 Eos # (0.0-0.4) K/mm3 Baso # (0.0-0.1) K/mm3 Seg Neutrophils % (40.0-70.0) % Seg Neutrophils # (1.8-7.7) K/mm3 Sodium (137-145) mmol/L Potassium (3.6-5.0) mmol/L Chloride (98-107) mmol/L Carbon Dioxide (22-30) mmol/L Anion Gap mmol/L BUN (7-17) mg/dL Creatinine (0.7-1.2) mg/dL Estimated GFR ml/min BUN/Creatinine Ratio % Glucose (65-100) mg/dL Calcium (8.4-10.2) mg/dL Magnesium 2.10 (1.7-2.3) mg/dL Troponin T < 0.010 < 0.010 (0.00-0.029) ng/mL HCG, Qual (Negative) - EKG Data -: EKG Interpreted by Tn EKG shows normal: sinus rhythm Rate: normal - EKG Data Interpretation: unchanged when compared t 07/28/17 08:49 EKG #1 demonstrates normal sinus, 91 bpm, normal axis, normal intervals, not morphologically consistent with STEMI, appears unchanged when compared to prior from 2016. EKG #2 demonstrates normal sinus, 61 bpm, normal intervals, normal axis, nonspecific ST elevation in the inferior leads, appears slightly more pronounced than on prior EKG. EKG #3, right-sided leads, normal sinus, 63 bpm, poor R-wave progression, ST elevation in the inferior leads, abnormal EKG, not morphologically consistent with STEMI, transmitted to consult a bumboater, Dr. Carroll Maynard - Radiology Data Radiology results: image reviewed interpreted by ky: X-ray of the chest is negative for acute disease - Medical Decision Making Differential diagnosis: Acute coronary syndrome, unstable angina, pneumonia, COPD, CHF, asthma exacerbation Assessment and plan: 47-year-old female with chest pain, shortness of breath, reported near syncope, no pulmonary embolus or DVT risk factors, low risk by well's criteria, PERC NEGATIVE EKG has nonspecific abnormalities, and they appeared to be more pronounced than when on prior EKG. This may be secondary to lead placement. Her EKG does not meet STEMI criteria, troponins negative 3, patient wheezing, and when she ambulates 2 saturation 93%. 3 EKGs are transported to the consult and bumboater, Dr. Carroll maynard, who agrees the patient does not meet STEMI criteria, but does recommend admission to the hospital for observation, cardiology will follow up make further recommendations regarding ACS risk stratification. Case is presented to the Hospital physician, Dr. He, who accepts the patient to the medical service on behalf of Dr. Wallace, medical team to admit Critical care attestation.: If time is entered above; I have spent that time in minutes in the direct care of this critically ill patient, excluding procedure time. ED Disposition Clinical Impression: Chest pain, Shortness of breath Disposition: DC-09 OP ADMIT IP TO THIS HOSP Is pt being admited?: Yes Condition: Stable Instructions: Chest Pain (ED) Referrals: PRIMARY CARE, [Primary Care Provider] - 3-5 Days
[2017-07-28] MEDS ORDERED: PLAVIX PO ONE (08:57)
--- NOTE | 2017-07-28 09:47 | XRay Report ---
ROUTINE CHEST, TWO VIEWS: HISTORY: Short of breath. The trachea, heart, mediastinal contour, lung delgado and bony thorax are unremarkable. IMPRESSION: Unremarkable chest x-ray.
--- NOTE | 2017-07-28 09:55 | History and Physical Report ---
History of Present Illness Date of examination: 07/28/17 Date of admission: 07/28/17 Chief complaint: chest pain History of present illness: This is a 47-year-old female presents to the emergency department with complaints of chest pain. Patient describes as a tightness that is substernal/ central and has been intermittent since 4 PM yesterday. She states that the pain does not radiate to the neck or arms. Patient does report some associated shortness of breath and a sensation of presyncope. Patient denies any leg pain or leg swelling. No PND or orthopnea. No cough or cold-like symptoms. No headache or visual disturbances. Patient denies nausea, vomiting or diarrhea. Patient does report that her symptoms are exacerbated with physical activity. Patient denies any fever or chills. Past History Past Medical History: GERD, other (asthma) Past Surgical History: No surgical history Social history: no significant social history Family history: no significant family history Medications and Allergies Allergies Allergy/AdvReac Type Severity Reaction Status Date / Time doxycycline Allergy Rash Verified 07/17/17 21:25 famotidine [From Pepcid] Allergy Hives Verified 07/17/17 21:25 ketorolac tromethamine Allergy Anaphylaxis Verified 07/17/17 21:25 [From Toradol] Latex, Natural Rubber Allergy Angioedema Verified 07/17/17 21:25 morphine Allergy Shortness Verified 07/17/17 21:25 of Breath tiotropium bromide Allergy Anaphylaxis Verified 07/17/17 21:25 [From Spiriva with HandiHaler] azithromycin [From Zithromax] AdvReac Anaphylaxis Verified 07/17/17 21:25 NSAIDS (Non-Steroidal AdvReac Anaphylaxis Verified 07/17/17 21:25 Anti-Inflamma Penicillins AdvReac Hives Verified 07/17/17 21:25 Home Medications Medication Instructions Recorded Confirmed Last Taken Type Levothyroxine Sodium 137 mcg PO QAM #30 tablet 06/07/17 06/26/17 06/25/17 Rx [Levothyroxine] Pantoprazole [Protonix TAB] 40 mg PO QDAY #30 tablet 06/07/17 06/26/17 06/25/17 Rx ALBUTEROL Inhaler [ProAir HFA 2 puff IH QID PRN #1 inhalation 06/19/17 06/26/17 06/25/17 Rx Inhaler] ALBUTEROL NEB's [Proventil 0.083% 2.5 mg IH TID PRN #30 neb 06/19/17 06/26/17 Rx NEBS] predniSONE [Deltasone] 20 mg PO BID #10 tab 06/19/17 06/26/17 06/25/17 Rx Review of Systems All systems: negative Exam - Constitutional Vitals: Temp Pulse Resp BP Pulse Ox 98.2 F 71 14 97/51 96 07/28/17 05:46 07/28/17 09:00 07/28/17 09:00 07/28/17 09:00 07/28/17 09:00 General appearance: Present: no acute distress, well-nourished - EENT Eyes: Present: PERRL ENT: hearing intact, clear oral mucosa - Neck Neck: Present: supple, normal ROM - Respiratory Respiratory effort: normal Respiratory: bilateral: CTA - Cardiovascular Heart Sounds: Present: S1 & S2. Absent: rub, click - Extremities Extremities: pulses symmetrical, No edema Peripheral Pulses: within normal limits - Abdominal General gastrointestinal: Present: soft, non-tender, non-distended, normal bowel sounds Female genitourinary: Present: normal - Integumentary Integumentary: Present: clear, warm, dry - Musculoskeletal Musculoskeletal: gait normal, strength equal bilaterally - Psychiatric Psychiatric: appropriate mood/affect, intact judgment & insight - Neurologic Neurologic: CNII-XII intact, moves all extremities Results - Labs CBC & Chem 7: 07/27/17 23:25 07/27/17 23:25 Labs: Laboratory Last Values WBC 12.2 K/mm3 (4.5-11.0) H 07/27/17 23:25 RBC 4.71 M/mm3 (3.65-5.03) 07/27/17 23:25 Hgb 12.4 gm/dl (10.1-14.3) 07/27/17 23:25 Hct 39.0 % (30.3-42.9) 07/27/17 23:25 MCV 83 fl (79-97) 07/27/17 23:25 MCH 26 pg (28-32) L 07/27/17 23:25 MCHC 32 % (30-34) 07/27/17 23:25 RDW 15.3 % (13.2-15.2) H 07/27/17 23:25 Plt Count 249 K/mm3 (140-440) 07/27/17 23:25 Lymph % (Auto) 24.6 % (13.4-35.0) 07/27/17 23:25 [place] % (Auto) 10.8 % (0.0-7.3) H 07/27/17 23:25 Eos % (Auto) 3.0 % (0.0-4.3) 07/27/17 23:25 Baso % (Auto) 0.3 % (0.0-1.8) 07/27/17 23:25 Lymph # 3.0 K/mm3 (1.2-5.4) 07/27/17 23:25 [place] # 1.3 K/mm3 (0.0-0.8) H 07/27/17 23:25 Eos # 0.4 K/mm3 (0.0-0.4) 07/27/17 23:25 Baso # 0.0 K/mm3 (0.0-0.1) 07/27/17 23:25 Seg Neutrophils % 61.3 % (40.0-70.0) 07/27/17 23:25 Seg Neutrophils # 7.5 K/mm3 (1.8-7.7) 07/27/17 23:25 Sodium 141 mmol/L (137-145) 07/27/17 23:25 Potassium 3.1 mmol/L (3.6-5.0) L 07/27/17 23:25 Chloride 101.8 mmol/L (98-107) 07/27/17 23:25 Carbon Dioxide 24 mmol/L (22-30) 07/27/17 23:25 Anion Gap 18 mmol/L 07/27/17 23:25 BUN 12 mg/dL (7-17) 07/27/17 23:25 Creatinine 0.8 mg/dL (0.7-1.2) 07/27/17 23:25 Estimated GFR > 60 ml/min 07/27/17 23:25 BUN/Creatinine Ratio 15 % 07/27/17 23:25 Glucose 117 mg/dL (65-100) H 07/27/17 23:25 Calcium 8.5 mg/dL (8.4-10.2) 10/21/17 23:25 Magnesium 2.10 mg/dL (1.7-2.3) 07/28/17 02:13 Troponin T < 0.010 ng/mL (0.00-0.029) 07/28/17 06:48 HCG, Qual Negative (Negative) 07/27/17 23:25 Assessment and Plan Assessment and plan: Chest pain. Patient with abnormal EKG and questionable ST changes inferiorly. Cardiology consultation. Patient has had negative stress test in June 2016 and June 2017. Cardiology to decide regarding cardiac catheterization. GERD. Protonix daily. Asthma. Stable. Continue bronchodilators and nebulizer treatments. Home medications indicate prednisone twice a day. We will continue that as well. Hypothyroidism. Continue Synthroid and check TSH. Hypokalemia. Replete potassium.
[2017-07-28] MEDS ORDERED: PROAIR IH PRN (09:57)
[2017-07-28] MEDS ORDERED: PROVENTIL IH PRN (09:57)
[2017-07-28] MEDS ORDERED: MILK OF MAGNESIA PO PRN (09:59)
[2017-07-28] MEDS ORDERED: DULCOLAX PR PRN (09:59)
[2017-07-28] MEDS ORDERED: TYLENOL PO PRN (09:59)
[2017-07-28] MEDS ORDERED: SODIUM CHLORIDE FLUSH SYRINGE 10 ML IV PRN (09:59)
[2017-07-28] MEDS ORDERED: ZOFRAN IV PRN (09:59)
[2017-07-28] MEDS ORDERED: NON-FORMULARY (Levothyroxine Sodium [Levothyroxine] 137 MCG) PO SCH (10:00)
[2017-07-28] MEDS ORDERED: NACL 0.9% 1000 ML 1,000 ML IV SCH (10:00)
[2017-07-28] MEDS: DELTASONE PO SCH ×2 (10:57→22:50)
[2017-07-28] MEDS: PROTONIX PO SCH (10:57)
[2017-07-28] MEDS: LOVENOX SUB-Q SCH (10:57)
[2017-07-28] MEDS: SYNTHROID PO SCH ×2 (11:26)
[2017-07-28] MEDS: PLAVIX PO SCH (13:56)
[2017-07-28] MEDS ORDERED: DILAUDID IV PRN (20:38)
[2017-07-28] MEDS ORDERED: DILAUDID ONE (20:47)
[2017-07-28] MEDS: DUONEB *Not for PRN Use IH SCH (20:51)
--- NOTE | 2017-07-28 21:25 | Consultation ---
CARDIOLOGY CONSULTATION REFERRING PHYSICIAN: ER physician. PRIMARY CARE PHYSICIAN: Shon Oneal MD HISTORY OF PRESENT ILLNESS: The patient is a pleasant 47-year-old female with a history of asthma and gastroesophageal reflux disease, who presents here with chest pain. Her chest pain felt like gas pain. Currently, seen in the Emergency Room and chest pain free and feels \\"back to normal.\\" No syncope or presyncope. No lightheadedness or dizziness. Denies any recent fevers, chills, nausea or vomiting. No recent viral illness. No bleeding, diathesis, cold or heat intolerance. No rashes. ALLERGIES: Multiple allergies are reviewed. HOME MEDICATIONS: Reviewed. SOCIAL HISTORY: No. FAMILY HISTORY: Premature heart disease or sudden cardiac . PHYSICAL EXAMINATION: VITAL SIGNS: Blood pressure is 122/80, the patient is afebrile. Tele reveals sinus rhythm, no dysrhythmias, O2 sats 99% on room air. GENERAL: This is a middle-aged -[place], female in no apparent distress, oriented x 3. HEENT: Sclerae are anicteric. PERRL. NECK: Supple. No mass or JVD. CHEST: Clear to auscultation bilaterally. Good air movement. CARDIOVASCULAR: Irregular rhythm, S1, S2. ABDOMEN: Soft, nontender, nondistended. Normoactive bowel sounds in 4 quadrants. No mass or bruits. EXTREMITIES: No cyanosis, clubbing or edema. Good peripheral pulses. SKIN: Warm, dry and intact. No rashes. DIAGNOSTIC DATA: EKG from last night reveals sinus rhythm, no acute changes. EKG from this morning reveals mild diffuse ST elevation, [address] elevation diffusely with NJ elevation in AVR questionable pericarditis. LABORATORY DATA: WBC is 12.2, hemoglobin 12.4, hematocrit 39.0, platelets 249, potassium is 3.1 today. Troponins are negative x 3. Recent negative stress test in June. ASSESSMENT AND PLAN: In summary, the patient is a pleasant 47-year-old -[place] female: 1. Chest pain, now resolved. Cardiac enzymes negative x 3, EKG with mild diffuse ST elevation with NJ elevation in AVR suspicious for pericarditis, but the patient is entirely chest pain free, already on steroid therapy. At this point, we will check an echocardiogram. The patient is already on steroids and is allergic to NSAIDs. We will recheck an EKG in a.m. as well. FOLLOWUP: We will follow closely along with you. Thank you for this consultation. JOB# [id number] SBM/[id number]
[2017-07-28] MEDS ORDERED: ALUM-MAG HYDROX-SIMETH 200-200-20MG/5ML PO PRN (22:24)
[2017-07-28] MEDS ORDERED: LIDOCAINE VISCOUS 2% PO ONE (22:27)
[2017-07-28] MEDS ORDERED: ALUM-MAG HYDROX-SIMETH 200-200-20MG/5ML ONE (22:29)
[2017-07-28] MEDS ORDERED: LIDOCAINE VISCOUS 2% ONE (22:30)
[2017-07-29 05:40] LABS: Basophils % (Auto) 0.3 % (0.0-1.8); Eosinophils % (Auto) 0.8 % (0.0-4.3); Hematocrit 37.9 % (30.3-42.9); Hemoglobin 12.4 gm/dl (10.1-14.3); Mean Corpuscular HGB Conc 33 % (30-34); Mean Corpuscular Hemoglobin 27 pg (28-32); Mean Corpuscular Volume 82 fl (79-97); Platelet Count 226 K/mm3 (140-440); Red Blood Count 4.61 M/mm3 (3.65-5.03); Red Cell Distribution Width 15.4 % (13.2-15.2); White Blood Count 15.5 K/mm3 (4.5-11.0)
[2017-07-29 05:59] LABS: Anion Gap 17 mmol/L; BUN/Creatinine Ratio 17; Blood Urea Nitrogen 12 mg/dL (7-17); Calcium 8.5 mg/dL (8.4-10.2); Carbon Dioxide 24 mmol/L (22-30); Chloride 105.3 mmol/L (98-107); Glucose 126 mg/dL (65-100); Potassium 4.9 mmol/L (3.6-5.0); Sodium 141 mmol/L (137-145)
[2017-07-29] MEDS: SYNTHROID PO SCH ×2 (06:00)
[2017-07-29] MEDS: DUONEB *Not for PRN Use IH SCH ×4 (08:09→19:59)
--- NOTE | 2017-07-29 08:15 | Progress Note ---
Assessment and Plan Assessment and plan: Patient is a 47-year-old female presents to the emergency department with complaints of chest pain. Patient describes as a tightness that is substernal/ central and has been intermittent since 4 PM yesterday. Chest Pain S/p lexiscan MPI stress test 06/07/2017 which was negative for ischemia, EF 66%. Suspect abnormal ECG secondary to early repolarization with no acute changes when compared to prior ECG per cardiology. Echocardiogram with EF 55-60% Abnormal EKG and questionable ST changes inferiorly. Negative cardiac enzyme X3 Continue on aspirin Nitroglycerin when necessary Morphine ordered for pain Stress test ordered. Cardiology evaluation SIRS Patient meets SIRS criteria with tachycardia and leukocytosis blood cultures collected follow blood cultures initiated empiric treatment IV Rocephin We will repeat CBC Hypertension Continue home antihypertensive medications. Closely monitor blood pressure Asthma. Stable at this time. Continue bronchodilators and nebulizer treatments. Continue home medications indicate prednisone twice a day. GERD On Protonix DVT prophylaxis on Lovenox History Interval history: Patient denies chest pain, shortness of breath or dizziness. Hospitalist Physical - Constitutional Vitals: Temp Pulse Resp BP Pulse Ox 98.4 F 73 15 104/55 93 07/28/17 19:57 07/29/17 06:30 07/29/17 06:30 07/29/17 06:30 07/29/17 06:30 General appearance: Present: no acute distress, well-nourished - EENT Eyes: Present: PERRL ENT: hearing intact - Neck Neck: Present: supple - Respiratory Respiratory effort: normal Respiratory: bilateral: CTA - Cardiovascular Rhythm: regular Heart Sounds: Present: S1 & S2 - Abdominal General gastrointestinal: soft, non-tender - Integumentary Integumentary: Present: clear - Psychiatric Psychiatric: appropriate mood/affect - Neurologic Neurologic: CNII-XII intact, moves all extremities - Allied Health Allied health notes reviewed: nursing Results - Labs CBC & Chem 7: 07/29/17 05:22 07/29/17 05:22 Labs: Laboratory Last Values WBC 15.5 K/mm3 (4.5-11.0) H 07/29/17 05:22 RBC 4.61 M/mm3 (3.65-5.03) 07/29/17 05:22 Hgb 12.4 gm/dl (10.1-14.3) 07/29/17 05:22 Hct 37.9 % (30.3-42.9) 07/29/17 05:22 MCV 82 fl (79-97) 07/29/17 05:22 MCH 27 pg (28-32) L 07/29/17 05:22 MCHC 33 % (30-34) 07/29/17 05:22 RDW 15.4 % (13.2-15.2) H 07/29/17 05:22 Plt Count 226 K/mm3 (140-440) 07/29/17 05:22 Lymph % (Auto) 8.2 % (13.4-35.0) L 07/29/17 05:22 [place] % (Auto) 6.5 % (0.0-7.3) 07/29/17 05:22 Eos % (Auto) 0.8 % (0.0-4.3) 07/29/17 05:22 Baso % (Auto) 0.3 % (0.0-1.8) 07/29/17 05:22 Lymph # 1.3 K/mm3 (1.2-5.4) 07/29/17 05:22 [place] # 1.0 K/mm3 (0.0-0.8) H 07/29/17 05:22 Eos # 0.1 K/mm3 (0.0-0.4) 07/29/17 05:22 Baso # 0.0 K/mm3 (0.0-0.1) 07/29/17 05:22 Seg Neutrophils % 84.2 % (40.0-70.0) H 07/29/17 05:22 Seg Neutrophils # 13.1 K/mm3 (1.8-7.7) H 07/29/17 05:22 Sodium 141 mmol/L (137-145) 07/29/17 05:22 Potassium 4.9 mmol/L (3.6-5.0) D 07/29/17 05:22 Chloride 105.3 mmol/L (98-107) 07/29/17 05:22 Carbon Dioxide 24 mmol/L (22-30) 07/29/17 05:22 Anion Gap 17 mmol/L 07/29/17 05:22 BUN 12 mg/dL (7-17) 07/29/17 05:22 Creatinine 0.7 mg/dL (0.7-1.2) 07/29/17 05:22 Estimated GFR > 60 ml/min 07/29/17 05:22 BUN/Creatinine Ratio 17 % 07/29/17 05:22 Glucose 126 mg/dL (65-100) H 07/29/17 05:22 Calcium 8.5 mg/dL (8.4-10.2) 07/29/17 05:22 Magnesium 2.10 mg/dL (1.7-2.3) 07/28/17 02:13 Troponin T < 0.010 ng/mL (0.00-0.029) 07/28/17 06:48 HCG, Qual Negative (Negative) 07/27/17 23:25
[2017-07-29] MEDS: DELTASONE PO SCH ×2 (09:47→21:43)
[2017-07-29] MEDS: PLAVIX PO SCH (09:47)
[2017-07-29] MEDS: PROTONIX PO SCH (09:48)
[2017-07-29] MEDS: LOVENOX SUB-Q SCH (09:48)
[2017-07-29] MEDS: ROCEPHIN/NS 1 GM/50 ML 1 GM/50 ML BAG IV SCH (09:58)
--- NOTE | 2017-07-29 13:08 | Progress Note ---
Assessment and Plan S/p lexiscan MPI stress test 06/07/2017 which was negative for ischemia, EF 66%. Suspect abnormal ECG secondary to early repolarization with no acute changes when compared to prior ECG. Await echo. Cont with PPI. Clinically and electrographically, no suggestion of pericarditis. The patient has been seen in conjunction with Dr. Baker who agrees with the assessment and plan of care. - Patient Problems (1) Chest pain, atypical Current Visit: Yes Status: Acute (2) GERD (gastroesophageal reflux disease) Current Visit: Yes Status: Chronic Qualifiers: Esophagitis presence: E (3) Abnormal EKG Current Visit: Yes Status: Acute (4) Leucocytosis Current Visit: No Status: Acute Qualifiers: Leukocytosis type: unspecified Qualified Code(s): D72.829 - Elevated white blood cell count, unspecified (5) History of asthma Current Visit: Yes Status: Chronic Subjective Date of service: 07/29/17 Principal diagnosis: chest pain, atypical Interval history: Pt resting comfortably in bed, denies any current complaints. States chest pain has resolved. Awaiting echo today. Objective Last Vital Signs Temp 98.1 F 07/29/17 08:30 Pulse 84 07/29/17 08:30 Resp 18 07/29/17 08:30 BP 107/62 07/29/17 08:30 Pulse Ox 96 07/29/17 07:10 - Physical Examination General: Appears Well HEENT: Positive: PERRL, Normocephaly, Mucus Membranes Moist Neck: Positive: neck supple, trachea midline Cardiac: Positive: Reg Rate and Rhythm, irregularly irregular Lungs: Positive: clear to auscultation Neuro: Positive: Grossly Intact, Cranial Nerve 2-12 Intact Abdomen: Positive: Unremarkable, Soft, Active Bowel Sounds. Negative: Tender Skin: Positive: Clear. Negative: Rash, Wound Musculoskeletal: No Fluid Collection, No Pain, Normal Range of Motion Extremities: Absent: edema - Labs and Meds CBC 07/29/17 Range/Units 05:22 WBC 15.5 H (4.5-11.0) K/mm3 RBC 4.61 (3.65-5.03) M/mm3 Hgb 12.4 (10.1-14.3) gm/dl Hct 37.9 (30.3-42.9) % Plt Count 226 (140-440) K/mm3 Lymph # 1.3 (1.2-5.4) K/mm3 [place] # 1.0 H (0.0-0.8) K/mm3 Eos # 0.1 (0.0-0.4) K/mm3 Baso # 0.0 (0.0-0.1) K/mm3 Comprehensive Metabolic Panel 07/29/17 Range/Units 05:22 Sodium 141 (137-145) mmol/L Potassium 4.9 D (3.6-5.0) mmol/L Chloride 105.3 (98-107) mmol/L Carbon Dioxide 24 (22-30) mmol/L BUN 12 (7-17) mg/dL Creatinine 0.7 (0.7-1.2) mg/dL Glucose 126 H (65-100) mg/dL Calcium 8.5 (8.4-10.2) mg/dL - Imaging and Cardiology EKG: report reviewed, image reviewed Echo: pending - EKG Sinus rhythms and dysrhythmias: sinus rhythm
[2017-07-30] MEDS: DUONEB *Not for PRN Use IH SCH ×2 (07:12→11:29)
--- NOTE | 2017-07-30 07:17 | Discharge Summary ---
Providers - Providers Date of Admission: 07/28/17 09:59 Date of discharge: 07/30/17 Attending physician: KATELYN LUNA Primary care physician: HIWOT BRUNO Hospitalization Condition: Good Hospital course: Patient is a 47-year-old female presents to the emergency department with complaints of chest pain. Patient describes as a tightness that is substernal/ central and has been intermittent X2days. Patient was diagnosed with chest pain , hypertension, abnormal EKG, Asthma, SIRS and GERD. Patient presented with atypical chest pain, ACS was ruled out, stress test normal MPI on 06/07/2017 which was negative for ischemia, EF 66%. Suspect abnormal ECG secondary to early repolarization with no acute changes when compared to prior ECG per cardiology. Echocardiogram on 07/30/17 with EF 55-60% negative cardiac enzymes , CXR WNL. Patient chest pain probably from musculoskeletal vs gastritis. She was supplemental oxygen, aggressive nebulizer therapy, PO steroids, IV fluid hydration, antacid and antihypertensive medications. Patient is clinically improved and no chest pain at present time.Patient completed a full course of antibiotic. She is being discharged on oral antibiotic. Also D/C with oral steroid taper upon discharge. Patient advised to follow-up with her primary care provider. Discharge Diagnosed Chest Pain due to Costochondritis SIRS Hypertension Asthma. GERD Disposition: DC- TO HOME OR SELFCARE Core Measure Documentation - Palliative Care Palliative Care/ Comfort Measures: Not Applicable - Core Measures Any of the following diagnoses?: none Exam - Constitutional Vitals: Temp Pulse Resp BP Pulse Ox 98.5 F 77 20 104/51 93 07/30/17 04:18 07/30/17 07:12 07/30/17 07:12 07/30/17 04:18 07/30/17 04:18 General appearance: Present: no acute distress - EENT Eyes: Present: PERRL ENT: hearing intact - Neck Neck: Present: supple - Respiratory Respiratory effort: normal Respiratory: bilateral: CTA - Cardiovascular Rhythm: regular Heart Sounds: Present: S1 & S2 - Extremities Extremities: no ischemia - Abdominal General gastrointestinal: Present: soft, non-tender Female genitourinary: Present: deferred - Rectal Rectal Exam: deferred - Integumentary Integumentary: Present: clear, warm, dry - Musculoskeletal Musculoskeletal: strength equal bilaterally - Psychiatric Psychiatric: appropriate mood/affect - Neurologic Neurologic: CNII-XII intact - Allied Health Allied health notes reviewed: nursing Plan Activity: no restrictions Weight Bearing Status: Weight Bear as Tolerated Diet: low fat, low cholesterol, low salt Follow up with: PRIMARY CARE, [Referring] - 3-5 Days Prescriptions: Levofloxacin [Levaquin] 750 mg PO QDAY #7 tablet Pantoprazole [Protonix TAB] 40 mg PO QDAY #30 tablet Prednisone [predniSONE 10 mg (6-Day Pack, 21 Tabs)] 10 mg PO .TAPER #1 tab.ds.pk
[2017-07-30] MEDS: SYNTHROID PO SCH ×2 (07:39→07:40)
[2017-07-30] MEDS: ROCEPHIN/NS 1 GM/50 ML 1 GM/50 ML BAG IV SCH (10:46)
[2017-07-30] MEDS: LOVENOX SUB-Q SCH (10:46)
[2017-07-30] MEDS: DELTASONE PO SCH (10:46)
[2017-07-30] MEDS: PROTONIX PO SCH (10:46)
--- NOTE | 2017-07-30 10:56 | Progress Note ---
Assessment and Plan Echo reviewed - EF 50-55%, trace MR, trace TR. Currently stable cardiac status. Pt may discharge home from cardiology standpoint. Follow up in our [place] office with Dr. Baker on 08/13/2017 @ 1:00PM. The patient has been seen in conjunction with Dr. Baker who agrees with the assessment and plan of care. - Patient Problems (1) Chest pain, atypical Current Visit: Yes Status: Resolved (2) GERD (gastroesophageal reflux disease) Current Visit: Yes Status: Chronic Qualifiers: Esophagitis presence: E (3) Abnormal EKG Current Visit: Yes Status: Acute (4) Leucocytosis Current Visit: No Status: Acute Qualifiers: Leukocytosis type: unspecified Qualified Code(s): D72.829 - Elevated white blood cell count, unspecified (5) History of asthma Current Visit: Yes Status: Chronic Subjective Date of service: 07/30/17 Principal diagnosis: chest pain, atypical Interval history: Pt resting comfortably in bed, denies any current complaints. Awaiting discharge. Objective Last Vital Signs Temp 97.6 F 07/30/17 07:28 Pulse 81 07/30/17 07:28 Resp 20 07/30/17 07:28 BP 114/51 07/30/17 07:28 Pulse Ox 97 07/30/17 07:28 - Physical Examination General: Appears Well HEENT: Positive: PERRL, Normocephaly, Mucus Membranes Moist Neck: Positive: neck supple, trachea midline Cardiac: Positive: Reg Rate and Rhythm, S1/S2 Lungs: Positive: clear to auscultation Neuro: Positive: Grossly Intact, Cranial Nerve 2-12 Intact Abdomen: Positive: Unremarkable, Soft, Active Bowel Sounds. Negative: Tender Skin: Positive: Clear. Negative: Rash, Wound Musculoskeletal: No Fluid Collection, No Pain, Normal Range of Motion Extremities: Absent: edema - Imaging and Cardiology EKG: report reviewed, image reviewed Echo: pending - EKG Sinus rhythms and dysrhythmias: sinus rhythm
[2017-07-30 12:55] VITALS: BP 115/63
--- NOTE | 2017-07-30 14:53 | Query- Chest Pain ---
Praveen Peterson____Rodrigo Date:___07/30/2017 Ronaldo/CDS:___Fabiola Phone#: [phone] Exercise your independent professional judgment when responding to query. Questions asked do not imply a particular answer is desired or expected. We greatly appreciate your clarification on this issue. Clinical Documentation States: 47 Year old female was admitted on 07/28/2017 with complaints of chest pain. Patient describes as a tightness that is substernal/central and has been intermittent since 4 PM yesterday. The Hospitalist H&P states "Chest pain. Patient with abnormal EKG and questionable ST changes inferiorly. Cardiology consultation. Patient has had negative stress test in June 2016 and June 2017. Cardiology to decide regarding cardiac catheterization. GERD. Protonix daily." Please document the etiology of Chest Pain: [ ] Myocardial Infarction [ ] Pneumonia [ ] Mediastinitis [ ] Costochondritis [ ] Pulmonary Embolism [ ] Coronary Artery Disease [ ] GERD [ ] Other: [ ] Comment/Explanation: Present on Admission: [ ] Yes (Y) [ ] Clinically undeterminable (W) [ ] No(N) Please document response in your Progress Notes and/or Discharge Summary and indicate if the condition was present on admission. BACILIO
== END 2017-07-30 13:30 | disposition home or self-care (01) | DRG 206 ==
LOC: ED 22:56 → 3A 07-28 09:59
PROVIDERS: ADMIT Hospitalist; ATTEND Hospitalist
DX: M94.0 Chondrocostal junction syndrome [Tietze] (principal); R65.10 Systemic inflammatory response syndrome (SIRS) of non-infectious origin without acute organ dysfunction; K21.9 Gastro-esophageal reflux disease without esophagitis; J45.909 Unspecified asthma, uncomplicated; E03.9 Hypothyroidism, unspecified; E87.6 Hypokalemia; I10 Essential (primary) hypertension; E66.9 Obesity, unspecified; Z68.34 Body mass index [BMI] 34.0-34.9, adult; Z88.1 Allergy status to other antibiotic agents; Z88.5 Allergy status to narcotic agent; Z88.0 Allergy status to penicillin; Z88.8 Allergy status to other drugs, medicaments and biological substances
CPT/HCPCS: 36415; 71020; 80048; 83735; 84484; 84703; 85025; 87040; 93005; 93010; 93306; 94640; 96374; J0696; J1170; J1650; J2405; J7030; J7512

== ENCOUNTER 2017-08-27 03:06 | Emergency (ER) | payer MEDICARE ==
[2017-08-27] MEDS ORDERED: PROVENTIL IH ONE ×3 (03:11→05:27)
[2017-08-27] MEDS ORDERED: MAGNESIUM SULFATE 2GM/50ML 2 GM/50 ML BAG IV ONE ×3 (03:19→03:30)
[2017-08-27 03:35] LABS: Basophils % (Auto) 0.5 % (0.0-1.8); Eosinophils % (Auto) 5.5 % (0.0-4.3); Hematocrit 39.4 % (30.3-42.9); Hemoglobin 12.8 gm/dl (10.1-14.3); Mean Corpuscular HGB Conc 33 % (30-34); Mean Corpuscular Hemoglobin 28 pg (28-32); Mean Corpuscular Volume 85 fl (79-97); Platelet Count 244 K/mm3 (140-440); Red Blood Count 4.66 M/mm3 (3.65-5.03); Red Cell Distribution Width 15.3 % (13.2-15.2); White Blood Count 9.7 K/mm3 (4.5-11.0)
[2017-08-27 03:50] LABS: BUN/Creatinine Ratio 9; Blood Urea Nitrogen 8 mg/dL (7-17); Calcium 8.6 mg/dL (8.4-10.2); Carbon Dioxide 25 mmol/L (22-30); Glucose 129 mg/dL (65-100)
[2017-08-27 03:51] LABS: Anion Gap 15 mmol/L; Potassium 3.8 mmol/L (3.6-5.0); Sodium 138 mmol/L (137-145)
[2017-08-27] MEDS ORDERED: ATROVENT IH ONE ×2 (03:57→05:27)
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
--- NOTE | 2017-08-27 04:24 | XRay Report ---
FINAL REPORT PROCEDURE: XR CHEST 1V AP TECHNIQUE: Chest radiograph anteroposterior view. CPT 01606 HISTORY: SOB COMPARISON: No prior studies are available for comparison. FINDINGS: Heart: Normal. Mediastinum/Vessels: Normal. Lungs/Pleural space: Lungs are clear and expanded. There are no infiltrates, effusions or pneumothoraces.. Bony thorax: No acute osseous abnormality. Life support devices: None. IMPRESSION: No acute cardiopulmonary abnormality.
--- NOTE | 2017-08-27 07:51 | Cat Scan Report ---
FINAL REPORT EXAM: CT ANGIO CHEST HISTORY: SOB, elevated dimer TECHNIQUE: A CT angiogram was performed following the intravenous injection of 100 cc of Omnipaque 350. MIP sagittal coronal reconstructions were reviewed. Comparison is made study of 05/13/2017. FINDINGS: There is no evidence of pulmonary embolus or vascular congestion. The heart size is normal. The thoracic aorta is normal in caliber. There is no evidence of adenopathy. At the thoracic inlet the thyroid gland appears normal. There are no infiltrates or effusions. In the upper abdomen the adrenal glands appear normal. The skeletal structures are well-maintained. IMPRESSION: No evidence of pulmonary embolus or aortic dissection. No acute process in the chest.
[2017-08-27 08:21] VITALS: BP 112/72
== END 2017-08-27 08:19 | disposition home or self-care (01) ==
LOC: ED 03:06
DX: J45.901 Unspecified asthma with (acute) exacerbation (principal)
CPT/HCPCS: 36415; 71010; 71275; 80048; 84484; 84703; 85025; 85379; 93005; 93010; 94640; 96365; 96375; 99285; J2930; J3475; Q9967

== ENCOUNTER 2017-09-21 23:33 | Emergency (ER) | payer MEDICARE ==
[2017-09-21 23:59] VITALS: BP 133/87
[2017-09-22] MEDS ORDERED: TYLENOL PO ONE (04:09)
[2017-09-22] MEDS ORDERED: TYLENOL ONE (04:09)
--- NOTE | 2017-09-22 04:20 | Emergency Department Report ---
ED ENT HPI - General Chief complaint: Earache Stated complaint: LT EARACHE Time Seen by Provider: 09/22/17 02:50 Source: patient Mode of arrival: Ambulatory Limitations: No Limitations - History of Present Illness Initial comments: This is a 47 y.o. female presenting with left ear pain that started 4 hours ago. States she feel like something is in her ear. States the pain is so bad at the back of ear it feel like swelling. Denies fever, sore throat, facial weakness, vertigo, hearing loss, otorrhea, or tinnitus. MD complaint: ear pain (left) -: hour(s) (4) Location: L ear Severity: moderate Severity scale (0 -10): 8 Quality: aching, sharp, constant Improves with: none Worsens with: swallowing, position, eating Context- Dental: history of dental caries Associated Symptoms: pain with swallowing. denies: fever, cough, gum swelling, toothache, sore throat, tinnitus, hearing loss, discharge from ear, rhinorrhea - Related Data Home Medications Medication Instructions Recorded Confirmed Last Taken Levothyroxine [Synthroid] 25 mcg PO QAM 07/28/17 07/28/17 Unknown Previous Rx's Medication Instructions Recorded Last Taken Type Levofloxacin [Levaquin] 750 mg PO QDAY #7 tablet 07/30/17 Unknown Rx Levothyroxine [Synthroid] 25 mcg PO DAILY@0600 tablet 07/30/17 Unknown Rx Pantoprazole [Protonix TAB] 40 mg PO QDAY #30 tablet 07/30/17 Unknown Rx Prednisone [predniSONE 10 mg 10 mg PO .TAPER #1 tab.ds.pk 07/30/17 Unknown Rx (6-Day Pack, 21 Tabs)] ALBUTEROL Inhaler [ProAir HFA 2 puff IH QID PRN #30 inhalation 08/27/17 Unknown Rx Inhaler] ALBUTEROL NEB's [Proventil 0.083% 2.5 mg IH Q4H PRN #1 box 08/27/17 Unknown Rx NEBS] predniSONE [Deltasone] 20 mg PO BID #10 tab 08/27/17 Unknown Rx Acetaminophen/Codeine [Tylenol 1 tab PO Q6H PRN #20 tab 09/22/17 Unknown Rx /Codeine # 3 tab] Ciprofloxacin/Hydrocortisone 10 ml OT BID 7 Days #1 drops.susp 09/22/17 Unknown Rx [Ciprofloxacin HC OTIC] Allergies Allergy/AdvReac Type Severity Reaction Status Date / Time doxycycline Allergy Rash Verified 08/27/17 03:09 ketorolac tromethamine Allergy Anaphylaxis Verified 08/27/17 03:09 [From Toradol] Latex, Natural Rubber Allergy Angioedema Verified 08/27/17 03:09 morphine Allergy Shortness Verified 08/27/17 03:09 of Breath azithromycin [From Zithromax] AdvReac Anaphylaxis Verified 08/27/17 03:09 NSAIDS (Non-Steroidal AdvReac Anaphylaxis Verified 08/27/17 03:09 Anti-Inflamma Penicillins AdvReac Hives Verified 08/27/17 03:09 ED Dental HPI - General Chief complaint: Earache Stated complaint: LT EARACHE Time Seen by Provider: 09/22/17 02:50 Source: patient Mode of arrival: Ambulatory Limitations: No Limitations - Related Data Home Medications Medication Instructions Recorded Confirmed Last Taken Levothyroxine [Synthroid] 25 mcg PO QAM 07/28/17 07/28/17 Unknown Previous Rx's Medication Instructions Recorded Last Taken Type Levofloxacin [Levaquin] 750 mg PO QDAY #7 tablet 07/30/17 Unknown Rx Levothyroxine [Synthroid] 25 mcg PO DAILY@0600 tablet 07/30/17 Unknown Rx Pantoprazole [Protonix TAB] 40 mg PO QDAY #30 tablet 07/30/17 Unknown Rx Prednisone [predniSONE 10 mg 10 mg PO .TAPER #1 tab.ds.pk 07/30/17 Unknown Rx (6-Day Pack, 21 Tabs)] ALBUTEROL Inhaler [ProAir HFA 2 puff IH QID PRN #30 inhalation 08/27/17 Unknown Rx Inhaler] ALBUTEROL NEB's [Proventil 0.083% 2.5 mg IH Q4H PRN #1 box 08/27/17 Unknown Rx NEBS] predniSONE [Deltasone] 20 mg PO BID #10 tab 08/27/17 Unknown Rx Acetaminophen/Codeine [Tylenol 1 tab PO Q6H PRN #20 tab 09/22/17 Unknown Rx /Codeine # 3 tab] Ciprofloxacin/Hydrocortisone 10 ml OT BID 7 Days #1 drops.susp 09/22/17 Unknown Rx [Ciprofloxacin HC OTIC] Allergies Allergy/AdvReac Type Severity Reaction Status Date / Time doxycycline Allergy Rash Verified 08/27/17 03:09 ketorolac tromethamine Allergy Anaphylaxis Verified 08/27/17 03:09 [From Toradol] Latex, Natural Rubber Allergy Angioedema Verified 08/27/17 03:09 morphine Allergy Shortness Verified 08/27/17 03:09 of Breath azithromycin [From Zithromax] AdvReac Anaphylaxis Verified 08/27/17 03:09 NSAIDS (Non-Steroidal AdvReac Anaphylaxis Verified 08/27/17 03:09 Anti-Inflamma Penicillins AdvReac Hives Verified 08/27/17 03:09 ED Review of Systems ROS: Stated complaint: LT EARACHE Other details as noted in HPI Constitutional: no symptoms reported, see HPI. denies: chills, diaphoresis, fever, malaise, weakness Eyes: as per HPI. denies: eye pain, eye discharge, vision change ENT: as per HPI, ear pain. denies: throat pain, dental pain, hearing loss, epistaxis, congestion Respiratory: no symptoms reported, see HPI. denies: cough, orthopnea, shortness of breath, SOB with exertion, SOB at rest, stridor, wheezing Cardiovascular: as per HPI. denies: chest pain, palpitations, dyspnea on exertion, orthopnea, edema, syncope, paroxysmal nocturnal dyspnea Gastrointestinal: as per HPI. denies: abdominal pain, nausea, vomiting, diarrhea, constipation, hematemesis, melena, hematochezia Skin: as per HPI. denies: rash, lesions, change in color, change in hair/nails , pruritus Psychiatric: as per HPI. denies: anxiety, depression, auditory hallucinations, visual hallucinations, homicidal thoughts, suicidal thoughts ED Past Medical Hx - Past Medical History Previous Medical History?: Yes Hx Hypertension: No Hx Heart Attack/AMI: No Hx Congestive Heart Failure: No Hx Diabetes: No Hx Deep Vein Thrombosis: No Hx Pulmonary Embolism: No Hx GERD: Yes Hx Liver Disease: No Hx Renal Disease: No Hx Sickle Cell Disease: No Hx Arthritis: No Hx Seizures: No Hx Kidney Stones: No Hx Asthma: Yes Hx COPD: No Hx Tuberculosis: No Hx Dementia: No Hx HIV: No Additional medical history: sinus problems --chronic sinusitis / ABD HERNIA. Prior Intubations. Obesity. - Surgical History Hx Coronary Stent: No Hx Open Heart Surgery: No Hx Pacemaker: No Hx Internal Defibrillator: No Hx Cholecystectomy: No Hx Appendectomy: No Hx Breast Surgery: No Additional Surgical History: x4, umbilical hernia repair, sinus surgeries, D&C. thyroid removal - Social History Smoking Status: Never Smoker Substance Use Type: None - Medications Home Medications: Home Medications Medication Instructions Recorded Confirmed Last Taken Type Levothyroxine [Synthroid] 25 mcg PO QAM 07/28/17 07/28/17 Unknown History Levofloxacin [Levaquin] 750 mg PO QDAY #7 tablet 07/30/17 Unknown Rx Levothyroxine [Synthroid] 25 mcg PO DAILY@0600 tablet 07/30/17 Unknown Rx Pantoprazole [Protonix TAB] 40 mg PO QDAY #30 tablet 07/30/17 Unknown Rx Prednisone [predniSONE 10 mg 10 mg PO .TAPER #1 tab.ds.pk 07/30/17 Unknown Rx (6-Day Pack, 21 Tabs)] ALBUTEROL Inhaler [ProAir HFA 2 puff IH QID PRN #30 inhalation 08/27/17 Unknown Rx Inhaler] ALBUTEROL NEB's [Proventil 0.083% 2.5 mg IH Q4H PRN #1 box 08/27/17 Unknown Rx NEBS] predniSONE [Deltasone] 20 mg PO BID #10 tab 08/27/17 Unknown Rx Acetaminophen/Codeine [Tylenol 1 tab PO Q6H PRN #20 tab 09/22/17 Unknown Rx /Codeine # 3 tab] Ciprofloxacin/Hydrocortisone 10 ml OT BID 7 Days #1 drops.susp 09/22/17 Unknown Rx [Ciprofloxacin HC OTIC] ED Physical Exam - General Limitations: No Limitations General appearance: alert, in no apparent distress - Head Head exam: Present: normal inspection - Eye Eye exam: Present: normal appearance, PERRL, EOMI. Absent: scleral icterus, conjunctival injection, nystagmus, periorbital swelling, periorbital tenderness Pupils: Present: normal accommodation. Absent: irregular, unequal, miosis, mydriatic - ENT ENT exam: Present: normal orophraynx, mucous membranes moist, other - Expanded ENT Exam Expanded TM/Canal exam: Erythema: Left TM, Bulging: Left TM, Mastoid Tenderness: Left TM Mouth exam: Present: normal external inspection, tongue normal. Absent: drooling, trismus, muffled voice, tongue elevation, laceration Teeth exam: Present: dental caries (#19, 30) Throat exam: Positive: normal inspection. Negative: tonsillar erythema, tonsillomegaly, tonsillar exudate, R peritonsillar mass, L peritonsillar mass - Neck Neck exam: Present: normal inspection, full ROM. Absent: tenderness, meningismus, lymphadenopathy, thyromegaly - Respiratory Respiratory exam: Present: normal lung sounds bilaterally. Absent: respiratory distress, wheezes, rales, rhonchi, stridor, chest wall tenderness, accessory muscle use, decreased breath sounds, prolonged expiratory - Cardiovascular Cardiovascular Exam: Present: regular rate, normal rhythm, normal heart sounds. Absent: bradycardia, tachycardia, irregular rhythm, systolic murmur, diastolic murmur, rubs, gallop, clicks, JVD, S3, S4 - Psychiatric Psychiatric exam: Present: normal affect, normal mood. Absent: depressed, agitated, anxious, flat affect, manic, homicidal ideation, suicidal ideation ED Course Vital Signs 09/21/17 23:56 Temperature 98.9 F Pulse Rate 97 H Respiratory 20 Rate Blood Pressure 133/87 O2 Sat by Pulse 96 Oximetry ED Medical Decision Making - Medical Decision Making 47 y.o. female with left ear pain 05/16. Denies hearing loss, facial weakness, vertigo, otorrhea, imbalance, or tinnitus. States pain feel like something is in ear. Assessment: bulging, erythematous TM on left, normal exam on right, hearing intact kimberly. Otitis Media, started on cipro otic 2 gtts bid, f/u with PCP. Critical care attestation.: If time is entered above; I have spent that time in minutes in the direct care of this critically ill patient, excluding procedure time. ED Disposition Clinical Impression: Otitis media Qualifiers: Otitis media type: suppurative Chronicity: acute Laterality: left Recurrence: not specified as recurrent Spontaneous tympanic membrane rupture: without spontaneous rupture Qualified Code(s): H66.002 - Acute suppurative otitis media without spontaneous rupture of ear drum, left ear Disposition: - TO HOME OR SELFCARE Is pt being admited?: No Does the pt Need Aspirin: No Condition: Stable Instructions: Otitis Media (ED) Prescriptions: Acetaminophen/Codeine [Tylenol /Codeine # 3 tab] 1 tab PO Q6H PRN #20 tab PRN Reason: Pain Ciprofloxacin/Hydrocortisone [Ciprofloxacin HC OTIC] 10 ml OT BID 7 Days #1 drops.susp Referrals: LINDSAY TONEY MD [Primary Care Provider] - 3-5 Days [facility] [place] [facility] [place] - 3-5 Days [facility] [Outside] - 3-5 Days Time of Disposition: 04:32 Print Language: ICELANDIC
== END 2017-09-22 04:48 | disposition home or self-care (01) ==
LOC: ED 23:33
DX: H66.002 Acute suppurative otitis media without spontaneous rupture of ear drum, left ear (principal); K21.9 Gastro-esophageal reflux disease without esophagitis; J45.909 Unspecified asthma, uncomplicated; Z88.8 Allergy status to other drugs, medicaments and biological substances; Z91.040 Latex allergy status
CPT/HCPCS: 99282

== ENCOUNTER 2017-09-23 21:21 | Emergency (ER) | payer MEDICARE ==
[2017-09-23] MEDS ORDERED: PROVENTIL IH ONE ×2 (21:46→23:14)
[2017-09-23] MEDS ORDERED: ATROVENT IH ONE ×2 (21:47→23:14)
[2017-09-23 22:18] LABS: Basophils % (Auto) 0.4 % (0.0-1.8); Eosinophils % (Auto) 6.6 % (0.0-4.3); Hematocrit 41.2 % (30.3-42.9); Hemoglobin 13.1 gm/dl (10.1-14.3); Mean Corpuscular HGB Conc 32 % (30-34); Mean Corpuscular Hemoglobin 27 pg (28-32); Mean Corpuscular Volume 85 fl (79-97); Platelet Count 205 K/mm3 (140-440); Red Blood Count 4.86 M/mm3 (3.65-5.03); Red Cell Distribution Width 15.8 % (13.2-15.2); White Blood Count 10.6 K/mm3 (4.5-11.0)
[2017-09-23 22:28] VITALS: BP 137/72
[2017-09-23 22:35] LABS: Anion Gap 20 mmol/L; BUN/Creatinine Ratio 9; Blood Urea Nitrogen 8 mg/dL (7-17); Calcium 8.8 mg/dL (8.4-10.2); Carbon Dioxide 22 mmol/L (22-30); Chloride 99.9 mmol/L (98-107); Glucose 126 mg/dL (65-100); Potassium 3.6 mmol/L (3.6-5.0); Sodium 138 mmol/L (137-145)
[2017-09-23] MEDS ORDERED: MAGNESIUM SULFATE 2GM/50ML 2 GM/50 ML BAG IV ONE (23:13)
--- NOTE | 2017-09-23 23:20 | Emergency Department Report ---
HPI - General Chief Complaint: Dyspnea/Respdistress Time Seen by Provider: 09/23/17 22:48 - HPI HPI: Room 20 The patient is a 47-year-old female presenting with chief complaint of shortness of breath. The patient's issues in her usual state of health until she went to [facility] when she developed what feels like her typical asthma attack. The patient states she uses her nebulizer twice but it did not help. The patient states when this has happened in the past she needs Solu-Medrol and magnesium. Patient received a nebulizer in the ED and states she feels a little better but is still wheezing. Patient denies pain of any type. Patient denies fever or cough Location: Lungs Duration: Constant since just prior to arrival Quality: Asthma Severity: Moderate Modifying factors: [see above] Context: [see above] Mode of transportation: [not driving] ED Past Medical Hx - Past Medical History Hx GERD: Yes Hx Asthma: Yes Additional medical history: sinus problems --chronic sinusitis / ABD HERNIA. Prior Intubations. Obesity. - Surgical History Additional Surgical History: x4, umbilical hernia repair, sinus surgeries, D&C. thyroid removal - Family History Family history: no significant - Social History Smoking Status: Never Smoker Substance Use Type: None - Medications Home Medications: Home Medications Medication Instructions Recorded Confirmed Last Taken Type Levothyroxine [Synthroid] 25 mcg PO QAM 07/28/17 07/28/17 Unknown History Levofloxacin [Levaquin] 750 mg PO QDAY #7 tablet 07/30/17 Unknown Rx Levothyroxine [Synthroid] 25 mcg PO DAILY@0600 tablet 07/30/17 Unknown Rx Pantoprazole [Protonix TAB] 40 mg PO QDAY #30 tablet 07/30/17 Unknown Rx Prednisone [predniSONE 10 mg 10 mg PO .TAPER #1 tab.ds.pk 07/30/17 Unknown Rx (6-Day Pack, 21 Tabs)] ALBUTEROL Inhaler [ProAir HFA 2 puff IH QID PRN #30 inhalation 08/27/17 Unknown Rx Inhaler] ALBUTEROL NEB's [Proventil 0.083% 2.5 mg IH Q4H PRN #1 box 08/27/17 Unknown Rx NEBS] predniSONE [Deltasone] 20 mg PO BID #10 tab 08/27/17 Unknown Rx Acetaminophen/Codeine [Tylenol 1 tab PO Q6H PRN #20 tab 09/22/17 Unknown Rx /Codeine # 3 tab] Ciprofloxacin/Hydrocortisone 10 ml OT BID 7 Days #1 drops.susp 09/22/17 Unknown Rx [Ciprofloxacin HC OTIC] Albuterol Sulfate [Albuterol 0.63% 0.63 mg IH Q4-6H PRN #90 ml 09/24/17 Unknown Rx NEBS] Prednisone [predniSONE 10 mg 10 mg PO .TAPER #1 tab.ds.pk 09/24/17 Unknown Rx (6-Day Pack, 21 Tabs)] ED Review of Systems ROS: Stated complaint: ASTHMA Other details as noted in HPI Constitutional: denies: fever Eyes: denies: eye pain ENT: denies: ear pain Respiratory: shortness of breath, wheezing. denies: cough Cardiovascular: denies: chest pain Gastrointestinal: denies: abdominal pain Genitourinary: denies: dysuria Musculoskeletal: denies: back pain Neurological: denies: headache Physical Exam - Physical Exam Vital Signs: Vital Signs 09/23/17 09/23/17 21:31 22:27 Temperature 98.2 F 98.4 F Pulse Rate 102 H 92 H Respiratory 20 16 Rate Blood Pressure 117/89 Blood Pressure 137/72 [Right] O2 Sat by Pulse 96 100 Oximetry Physical Exam: GENERAL: The patient is well-developed well-nourished female sitting on stretcher using cell phone not appearing to be in acute distress. [] HEENT: Normocephalic. Atraumatic. Extraocular motions are intact. Patient has moist mucous membranes. NECK: Supple. Trachea midline CHEST/LUNGS: Diffuse wheezing. There is no respiratory distress noted. HEART/CARDIOVASCULAR: Regular. There is no tachycardia. There is no gallop rub or murmur. ABDOMEN: Abdomen is soft, nontender. Patient has normal bowel sounds. There is no abdominal distention. SKIN: There is no rash. There is no diaphoresis. NEURO: The patient is awake, alert, and oriented. The patient is cooperative. The patient has normal speech MUSCULOSKELETAL: There is no evidence of acute injury. ED Course Vital Signs 09/23/17 09/23/17 21:31 22:27 Temperature 98.2 F 98.4 F Pulse Rate 102 H 92 H Respiratory 20 16 Rate Blood Pressure 117/89 Blood Pressure 137/72 [Right] O2 Sat by Pulse 96 100 Oximetry - Reevaluation(s) Reevaluation #1: 09/24/17 00:46 Patient states she feels much improved. Lungs clear to auscultation ED Medical Decision Making - Lab Data Result diagrams: 09/23/17 21:53 09/23/17 21:53 Laboratory Tests 09/23/17 09/23/17 21:53 21:53 WBC 10.6 RBC 4.86 Hgb 13.1 Hct 41.2 MCV 85 MCH 27 L MCHC 32 RDW 15.8 H Plt Count 205 Lymph % (Auto) 24.0 Sac % (Auto) 10.2 H Eos % (Auto) 6.6 H Baso % (Auto) 0.4 Lymph # 2.5 Sac # 1.1 H Eos # 0.7 H Baso # 0.0 Seg Neutrophils % 58.8 Seg Neutrophils # 6.2 Sodium 138 Potassium 3.6 Chloride 99.9 Carbon Dioxide 22 Anion Gap 20 BUN 8 Creatinine 0.9 Estimated GFR > 60 BUN/Creatinine Ratio 9 Glucose 126 H Calcium 8.8 Troponin T < 0.010 - EKG Data -: EKG Interpreted by Me EKG shows normal: sinus rhythm Rate: normal - EKG Data When compared to previous EKG there are: no significant change Interpretation: unchanged when compared t (08/27/2017) - Radiology Data Radiology results: image reviewed (chest x-ray) interpreted by me: Chest x-ray- no focal infiltrates, no pneumothorax - Differential Diagnosis acute asthma exacerbation, pneumonia, bronchitis, pneumothorax Critical care attestation.: If time is entered above; I have spent that time in minutes in the direct care of this critically ill patient, excluding procedure time. ED Disposition Clinical Impression: Acute asthma exacerbation, Shortness of breath Disposition: DC-01 TO HOME OR SELFCARE Is pt being admited?: No Does the pt Need Aspirin: No Condition: Stable Instructions: Asthma (ED) Additional Instructions: Return to the emergency department immediately should you develop worsening symptoms, fever, inability to tolerate food or liquid or any other concerns. Prescriptions: Albuterol Sulfate [Albuterol 0.63% NEBS] 0.63 mg IH Q4-6H PRN #90 ml PRN Reason: Wheezing Prednisone [predniSONE 10 mg (6-Day Pack, 21 Tabs)] 10 mg PO .TAPER #1 tab.ds.pk Referrals: HIWOT BRUNO MD [Primary Care Provider] - 3-5 Days Time of Disposition: 00:47
--- NOTE | 2017-09-23 23:20 | XRay Report ---
FINAL REPORT PROCEDURE: XR CHEST ROUTINE 2V TECHNIQUE: PA and lateral chest radiographs were obtained. CPT 15226 HISTORY: Shortness of breath. COMPARISON: Chest radiograph dated 08/27/2017. FINDINGS: Heart: Normal. Mediastinum/Vessels: Aortic tortuosity. Lungs/Pleural space: Normal. Bony thorax: No acute osseous abnormality. Other: IMPRESSION: No radiographic evidence of acute cardiopulmonary disease.
== END 2017-09-24 01:06 | disposition home or self-care (01) ==
LOC: ED 21:21
DX: J45.901 Unspecified asthma with (acute) exacerbation (principal); K21.9 Gastro-esophageal reflux disease without esophagitis; Z88.8 Allergy status to other drugs, medicaments and biological substances; Z91.040 Latex allergy status; Z91.048 Other nonmedicinal substance allergy status
CPT/HCPCS: 36415; 71020; 80048; 84484; 85025; 93005; 93010; 94644; 96365; 96375; 99284; J2930; J3475

== ENCOUNTER 2017-09-29 01:18 | Emergency (ER) | payer MEDICARE ==
[2017-09-29] MEDS ORDERED: DUONEB *Not for PRN Use IH ONE ×4 (02:31→09:24)
--- NOTE | 2017-09-29 03:21 | XRay Report ---
FINAL REPORT EXAM: XR CHEST ROUTINE 2V HISTORY: sob COMPARISON: September 23, 2017. FINDINGS:: Frontal and lateral views of the chest obtained. Cardiac silhouette is within normal limits. No focal consolidation or effusion. No pneumothorax. Visualized bony thorax is grossly intact. IMPRESSION:: No acute findings.
[2017-09-29 03:30] LABS: Anion Gap 19 mmol/L; BUN/Creatinine Ratio 10; Blood Urea Nitrogen 8 mg/dL (7-17); Calcium 8.9 mg/dL (8.4-10.2); Carbon Dioxide 23 mmol/L (22-30); Chloride 101.2 mmol/L (98-107); Glucose 136 mg/dL (65-100); Potassium 3.7 mmol/L (3.6-5.0); Sodium 139 mmol/L (137-145)
[2017-09-29 03:53] LABS: Basophils % (Auto) 0.2 % (0.0-1.8); Eosinophils % (Auto) 5.3 % (0.0-4.3); Hemoglobin 12.9 gm/dl (10.1-14.3); Mean Corpuscular HGB Conc 32 % (30-34); Mean Corpuscular Hemoglobin 27 pg (28-32); Mean Corpuscular Volume 84 fl (79-97); Platelet Count 270 K/mm3 (140-440); Red Blood Count 4.77 M/mm3 (3.65-5.03); Red Cell Distribution Width 15.6 % (13.2-15.2)
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
[2017-09-29] MEDS ORDERED: MAGNESIUM SULFATE 2GM/50ML 2 GM/50 ML BAG IV ONE (09:24)
[2017-09-29] MEDS ORDERED: ZOFRAN ONE (10:54)
[2017-09-29] MEDS ORDERED: ALUM-MAG HYDROX-SIMETH 200-200-20MG/5ML PO ONE (11:43)
[2017-09-29] MEDS ORDERED: PEPCID PO ONE (11:43)
[2017-09-29 12:56] VITALS: BP 121/79
== END 2017-09-29 12:53 | disposition home or self-care (01) ==
LOC: ED 01:18
DX: J44.1 Chronic obstructive pulmonary disease with (acute) exacerbation (principal); K21.9 Gastro-esophageal reflux disease without esophagitis
CPT/HCPCS: 36415; 71020; 80048; 84484; 85025; 93005; 93010; 94640; 96365; 96375; 99285; J2405; J2930; J3475

== ENCOUNTER 2017-10-24 02:53 | Emergency (ER) | payer MEDICARE ==
[2017-10-24 03:00] VITALS: BP 115/75
[2017-10-24] MEDS ORDERED: PROVENTIL IH ONE (03:53)
[2017-10-24] MEDS ORDERED: DUONEB *Not for PRN Use IH ONE (03:53)
[2017-10-24] MEDS ORDERED: XOPENEX IH ONE (10:54)
--- NOTE | 2017-10-24 11:06 | Emergency Department Report ---
ED Asthma HPI - General Chief Complaint: Adult Asthma Stated Complaint: SILVIANO / SOB Time Seen by Provider: 10/24/17 10:28 Source: patient Mode of arrival: Ambulatory Limitations: No Limitations - History of Present Illness Initial Comments: Patient is a 47-year-old female with a history of chronic asthma who presents to ED today stating she had an asthma attack earlier last night while she was sleeping. Patient states she got up and took one of her nebulizer treatments and waited for a while. She states she was not feeling better after nebulizer albuterol treatment. So she decided to come to the ED. Patient admits intermittent 1 episodes short of breath. Patient denies any fever, chills, nausea, vomiting, cough, recent illness, history of COPD MD Complaint: "asthma attack" - Related Data Home Medications Medication Instructions Recorded Confirmed Last Taken Levothyroxine [Synthroid] 25 mcg PO QAM 07/28/17 07/28/17 Unknown Previous Rx's Medication Instructions Recorded Last Taken Type Levofloxacin [Levaquin] 750 mg PO QDAY #7 tablet 07/30/17 Unknown Rx Levothyroxine [Synthroid] 25 mcg PO DAILY@0600 tablet 07/30/17 Unknown Rx Prednisone [predniSONE 10 mg 10 mg PO .TAPER #1 tab.ds.pk 07/30/17 Unknown Rx (6-Day Pack, 21 Tabs)] Acetaminophen/Codeine [Tylenol 1 tab PO Q6H PRN #20 tab 09/22/17 Unknown Rx /Codeine # 3 tab] Ciprofloxacin/Hydrocortisone 10 ml OT BID 7 Days #1 drops.susp 09/22/17 Unknown Rx [Ciprofloxacin HC OTIC] Albuterol Sulfate [Albuterol 0.63% 0.63 mg IH Q4-6H PRN #90 ml 09/24/17 Unknown Rx NEBS] Prednisone [predniSONE 10 mg 10 mg PO .TAPER #1 tab.ds.pk 09/24/17 Unknown Rx (6-Day Pack, 21 Tabs)] ALBUTEROL Inhaler [ProAir HFA 2 puff IH QID PRN #30 inhalation 09/29/17 Unknown Rx Inhaler] Pantoprazole [Protonix TAB] 40 mg PO QDAY #30 tablet 09/29/17 Unknown Rx predniSONE [Deltasone] 40 mg PO QDAY #14 tab 09/29/17 Unknown Rx ALBUTEROL NEB's [Proventil 0.083% 2.5 mg IH Q4H PRN #1 box 10/24/17 Unknown Rx NEBS] predniSONE [Deltasone] 20 mg PO BID #10 tab 10/24/17 Unknown Rx Allergies Allergy/AdvReac Type Severity Reaction Status Date / Time doxycycline Allergy Rash Verified 08/27/17 03:09 ketorolac tromethamine Allergy Anaphylaxis Verified 08/27/17 03:09 [From Toradol] Latex, Natural Rubber Allergy Angioedema Verified 08/27/17 03:09 morphine Allergy Shortness Verified 08/27/17 03:09 of Breath azithromycin [From Zithromax] AdvReac Anaphylaxis Verified 08/27/17 03:09 NSAIDS (Non-Steroidal AdvReac Anaphylaxis Verified 08/27/17 03:09 Anti-Inflamma Penicillins AdvReac Hives Verified 08/27/17 03:09 ED Review of Systems ROS: Stated complaint: SILVIANO / SOB Other details as noted in HPI Constitutional: denies: chills, fever Eyes: denies: eye pain, eye discharge, vision change ENT: denies: ear pain, throat pain Respiratory: denies: cough, shortness of breath, wheezing Cardiovascular: denies: chest pain, palpitations Endocrine: no symptoms reported Gastrointestinal: denies: abdominal pain, nausea, diarrhea Genitourinary: denies: urgency, dysuria, discharge Musculoskeletal: denies: back pain, joint swelling, arthralgia Skin: denies: rash, lesions Neurological: denies: headache, weakness, paresthesias Psychiatric: denies: anxiety, depression Hematological/Lymphatic: denies: easy bleeding, easy bruising ED Past Medical Hx - Past Medical History Previous Medical History?: Yes Hx Hypertension: No Hx Heart Attack/AMI: No Hx Congestive Heart Failure: No Hx Diabetes: No Hx Deep Vein Thrombosis: No Hx Pulmonary Embolism: No Hx GERD: Yes Hx Liver Disease: No Hx Renal Disease: No Hx Sickle Cell Disease: No Hx Arthritis: No Hx Seizures: No Hx Kidney Stones: No Hx Asthma: Yes Hx COPD: No Hx Tuberculosis: No Hx Dementia: No Hx HIV: No Additional medical history: sinus problems --chronic sinusitis / ABD HERNIA. Prior Intubations. Obesity. - Surgical History Hx Coronary Stent: No Hx Open Heart Surgery: No Hx Pacemaker: No Hx Internal Defibrillator: No Hx Cholecystectomy: No Hx Appendectomy: No Hx Breast Surgery: No Additional Surgical History: x4, umbilical hernia repair, sinus surgeries, D&C. thyroid removal - Social History Smoking Status: Never Smoker Substance Use Type: None - Medications Home Medications: Home Medications Medication Instructions Recorded Confirmed Last Taken Type Levothyroxine [Synthroid] 25 mcg PO QAM 07/28/17 07/28/17 Unknown History Levofloxacin [Levaquin] 750 mg PO QDAY #7 tablet 07/30/17 Unknown Rx Levothyroxine [Synthroid] 25 mcg PO DAILY@0600 tablet 07/30/17 Unknown Rx Prednisone [predniSONE 10 mg 10 mg PO .TAPER #1 tab.ds.pk 07/30/17 Unknown Rx (6-Day Pack, 21 Tabs)] Acetaminophen/Codeine [Tylenol 1 tab PO Q6H PRN #20 tab 09/22/17 Unknown Rx /Codeine # 3 tab] Ciprofloxacin/Hydrocortisone 10 ml OT BID 7 Days #1 drops.susp 09/22/17 Unknown Rx [Ciprofloxacin HC OTIC] Albuterol Sulfate [Albuterol 0.63% 0.63 mg IH Q4-6H PRN #90 ml 09/24/17 Unknown Rx NEBS] Prednisone [predniSONE 10 mg 10 mg PO .TAPER #1 tab.ds.pk 09/24/17 Unknown Rx (6-Day Pack, 21 Tabs)] ALBUTEROL Inhaler [ProAir HFA 2 puff IH QID PRN #30 inhalation 09/29/17 Unknown Rx Inhaler] Pantoprazole [Protonix TAB] 40 mg PO QDAY #30 tablet 09/29/17 Unknown Rx predniSONE [Deltasone] 40 mg PO QDAY #14 tab 09/29/17 Unknown Rx ALBUTEROL NEB's [Proventil 0.083% 2.5 mg IH Q4H PRN #1 box 10/24/17 Unknown Rx NEBS] predniSONE [Deltasone] 20 mg PO BID #10 tab 10/24/17 Unknown Rx ED Physical Exam - General Limitations: No Limitations General appearance: alert, in no apparent distress - Head Head exam: Present: atraumatic, normocephalic - Eye Eye exam: Present: normal appearance, PERRL - ENT ENT exam: Present: mucous membranes moist - Neck Neck exam: Present: normal inspection - Respiratory Respiratory exam: Present: normal lung sounds bilaterally, wheezes (bilat posterior), decreased breath sounds. Absent: respiratory distress, rales, rhonchi, stridor, chest wall tenderness, accessory muscle use - Cardiovascular Cardiovascular Exam: Present: regular rate, normal rhythm. Absent: systolic murmur, diastolic murmur, rubs, gallop - GI/Abdominal GI/Abdominal exam: Present: soft, normal bowel sounds - Extremities Exam Extremities exam: Present: normal inspection - Back Exam Back exam: Present: normal inspection - Neurological Exam Neurological exam: Present: alert, oriented X3 - Psychiatric Psychiatric exam: Present: normal affect, normal mood - Skin Skin exam: Present: warm, dry, intact, normal color. Absent: rash ED Course Vital Signs 10/24/17 10/24/17 02:55 03:45 Temperature 98.9 F 98.9 F Pulse Rate 97 H 91 H Respiratory 18 18 Rate Blood Pressure 115/75 115/75 O2 Sat by Pulse 96 96 Oximetry ED Medical Decision Making - Radiology Data Radiology results: report reviewed, image reviewed Ordering Physician: LIDIA MARIN Date of Service: 10/24/17 Procedure(s): XR chest routine 2V Accession Number(s): [id number] cc: LIDIA MARIN Fluoro Time In Minutes: ROUTINE CHEST, TWO VIEWS: HISTORY: Short of breath. The trachea, heart, mediastinal contour, lung delgado and bony thorax are unremarkable. IMPRESSION: Unremarkable chest x-ray. No change since 09/29/17. Transcribed By: TTR Dictated By: EMI BURDEN JR, MD Electronically Authenticated By: EMI BURDEN JR, MD Signed Date/Time: 10/24/17 1135 - Medical Decision Making 47-year-old female presents with asthma exacerbation Course: Patient received 125 mg grams IM of Solu-Medrol, 2 respiratory breathing treatment during the ED stay. Chest x-ray ordered, chest x-ray shows no acute pulmonary process. Patient reports feeling much better. Patient had no use of accessory muscles and ED stay. Palpation saturation increased to 97% oxygenating on room air prior to discharge. Patient is sitting comfortably in ED was able to eat peanut butter [place] was , crackers, apple sauce and tolerated fluids by mouth in the ED. Patient was in no respiratory or acute distress. Her vital signs are normal. Post medication administration evaluation: Lungs sounds clear, mild posterior right-sided wheezing . Critical care attestation.: If time is entered above; I have spent that time in minutes in the direct care of this critically ill patient, excluding procedure time. ED Disposition Clinical Impression: Asthma with acute exacerbation Qualifiers: Asthma severity: moderate Asthma persistence: persistent Qualified Code(s): J45.41 - Moderate persistent asthma with (acute) exacerbation Disposition: TO HOME OR SELFCARE Is pt being admited?: No Does the pt Need Aspirin: No Condition: Stable Instructions: Asthma (ED) Additional Instructions: Make sure to follow up with the primary care physician as discussed. Take all your medications as you've been prescribed. If you have any worsening symptoms or develop new symptoms please return to ED immediately. Prescriptions: ALBUTEROL NEB's [Proventil 0.083% NEBS] 2.5 mg IH Q4H PRN #1 box PRN Reason: Wheezing predniSONE [Deltasone] 20 mg PO BID #10 tab Referrals: LINDSAY TONEY MD [Primary Care Provider] - 3-5 Days [facility] [Outside] - 3-5 Days [facility] [Outside] - 3-5 Days [facility] [Outside] - 3-5 Days Forms: Work/School Release Form(ED) Time of Disposition: 11:14
--- NOTE | 2017-10-24 11:40 | XRay Report ---
ROUTINE CHEST, TWO VIEWS: HISTORY: Short of breath. The trachea, heart, mediastinal contour, lung delgado and bony thorax are unremarkable. IMPRESSION: Unremarkable chest x-ray. No change since 09/29/17.
== END 2017-10-24 12:42 | disposition home or self-care (01) ==
LOC: ED 02:53
DX: J45.41 Moderate persistent asthma with (acute) exacerbation (principal)
CPT/HCPCS: 71046; 94640; 99283; J2930

== ENCOUNTER 2017-12-12 06:01 | Emergency (ER) | payer MEDICARE ==
[2017-12-12] MEDS ORDERED: DUONEB *Not for PRN Use IH ONE ×3 (06:39→08:46)
[2017-12-12] MEDS ORDERED: ASPIRIN PO ONE (06:51)
[2017-12-12 07:10] LABS: Basophils % (Auto) 0.5 % (0.0-1.8); Eosinophils # (Auto) 0.4 K/mm3 (0.0-0.4); Eosinophils % (Auto) 4.3 % (0.0-4.3); Hematocrit 39.9 % (30.3-42.9); Hemoglobin 12.5 gm/dl (10.1-14.3); Lymphocytes # (Auto) 1.7 K/mm3 (1.2-5.4); Lymphocytes % (Auto) 17.7 % (13.4-35.0); Mean Corpuscular HGB Conc 31 % (30-34); Mean Corpuscular Hemoglobin 26 pg (28-32); Mean Corpuscular Volume 84 fl (79-97); Monocytes # (Auto) 1.1 K/mm3 (0.0-0.8); Monocytes % (Auto) 11.1 % (0.0-7.3); Platelet Count 241 K/mm3 (140-440); Red Blood Count 4.72 M/mm3 (3.65-5.03); Red Cell Distribution Width 15.5 % (13.2-15.2)
[2017-12-12 07:27] LABS: BUN/Creatinine Ratio 16; Blood Urea Nitrogen 11 mg/dL (7-17); Calcium 8.3 mg/dL (8.4-10.2); Hemolysis Index 45
[2017-12-12] MEDS ORDERED: DELTASONE PO ONE (08:46)
[2017-12-12] MEDS ORDERED: TYLENOL PO ONE (08:48)
--- NOTE | 2017-12-12 08:49 | XRay Report ---
AP CHEST : 12/12/17 06:01:00 CLINICAL: Chest pain. COMPARISON:10/24/17 FINDINGS: Normal heart and pulmonary vessels. The lungs are normally expanded and clear. The bones and soft tissues are unremarkable. IMPRESSION: Normal chest.
[2017-12-12] MEDS ORDERED: MUCINEX ER PO ONE (09:09)
--- NOTE | 2017-12-12 10:22 | Emergency Department Report ---
HPI - General Chief Complaint: Chest Pain Time Seen by Provider: 12/12/17 08:16 - HPI HPI: The patient is a 47-year-old female who presents for evaluation of chest pain and dyspnea. The patient reports constant, severe dyspnea since 3 AM, greater than 5 hours prior to my evaluation, exacerbated with exertion or activity, improved with breathing treatment. She shares that for the same duration she has experienced a mild tightness in quality chest pain is exacerbated with coughing, and resolved at rest. The patient denies fever, trauma to the chest, syncope, hemoptysis, unilateral leg swelling, oral contraceptive use, recent immobilization, history of DVT or PE, history of cocaine or other illicit drug use, hx cancer. ED Past Medical Hx - Past Medical History Hx Hypertension: No Hx Heart Attack/AMI: No Hx Congestive Heart Failure: No Hx Diabetes: No Hx Deep Vein Thrombosis: No Hx Pulmonary Embolism: No Hx GERD: Yes Hx Liver Disease: No Hx Renal Disease: No Hx Sickle Cell Disease: No Hx Arthritis: No Hx Seizures: No Hx Kidney Stones: No Hx Asthma: Yes Hx COPD: No Hx Tuberculosis: No Hx Dementia: No Hx HIV: No Additional medical history: sinus problems --chronic sinusitis / ABD HERNIA. Prior Intubations. Obesity. - Surgical History Hx Coronary Stent: No Hx Open Heart Surgery: No Hx Pacemaker: No Hx Internal Defibrillator: No Hx Cholecystectomy: No Hx Appendectomy: No Hx Breast Surgery: No Additional Surgical History: x4, umbilical hernia repair, sinus surgeries, D&C. thyroid removal - Social History Smoking Status: Never Smoker Substance Use Type: None - Medications Home Medications: Home Medications Medication Instructions Recorded Confirmed Last Taken Type Levothyroxine [Synthroid] 25 mcg PO DAILY@0600 tablet 11/03/17 Unknown Rx Montelukast [Singulair] 10 mg PO QHS #30 tablet 11/03/17 Unknown Rx ALBUTEROL Inhaler [ProAir HFA 2 puff IH QID PRN #30 inhalation 12/12/17 Unknown Rx Inhaler] Ipratropium/Albuterol Sulfate 1 ampul IH Q8HR 12/12/17 12/12/17 Unknown History [DUONEB *Not for PRN Use*] ED Review of Systems ROS: Stated complaint: CHEST PAIN Other details as noted in HPI Constitutional: denies: fever ENT: denies: throat or neck pain Respiratory: denies: cough, shortness of breath Cardiovascular: reports chest pain Endocrine: denies unexplained weight loss or gain Gastrointestinal: denies: abdominal pain, nausea Genitourinary: denies: dysuria Musculoskeletal: denies: leg swelling Skin: denies: rash Neurological: denies: headache Hematological/Lymphatic: denies: easy bleeding or easy bruising Psych: denies sadness or hopelessness Physical Exam - Physical Exam Vital Signs: Vital Signs 12/12/17 12/12/17 12/12/17 06:44 08:09 08:15 Temperature 98.1 F Pulse Rate 86 92 H 82 Pulse Rate [ Bilateral Throughout] Respiratory 16 18 16 Rate Respiratory Rate [Bilateral Throughout] Blood Pressure 125/89 O2 Sat by Pulse 100 95 95 Oximetry 12/12/17 12/12/17 12/12/17 08:19 08:31 09:01 Temperature Pulse Rate 86 78 Pulse Rate [ Bilateral Throughout] Respiratory 16 17 15 Rate Respiratory Rate [Bilateral Throughout] Blood Pressure 131/79 111/56 O2 Sat by Pulse 98 95 94 Oximetry 12/12/17 12/12/17 12/12/17 09:15 09:21 09:31 Temperature Pulse Rate 78 Pulse Rate [ 85 88 Bilateral Throughout] Respiratory 18 Rate Respiratory 18 18 Rate [Bilateral Throughout] Blood Pressure 111/56 O2 Sat by Pulse 95 Oximetry Physical Exam: General: well-nourished, well-developed, no acute distress Head: Normocephalic, atraumatic Eyes: normal sclera ENT: Mucous membranes are pink and moist Neck: trachea midline, neck supple, No neck stiffness, no cervical adenopathy Respiratory: Mildly diminished breath sounds and wheezing present throughout lung delgado bilaterally, no costal retractions, no respiratory distress Cardio: S1 and S2 present, no murmurs, rubs, gallops, capillary refill is brisk Abdomen: Normoactive bowel sounds, soft abdomen, no rigidity, no guarding or rebound tenderness Chest WALL/Back: No tenderness to palpation of the chest wall, no CVA tenderness with percussion Musc: No pitting edema Skin: No rash Neuro: no facial drooping, normal speech Psych: Normal affect ED Course Vital Signs 12/12/17 12/12/17 12/12/17 06:44 08:09 08:15 Temperature 98.1 F Pulse Rate 86 92 H 82 Pulse Rate [ Bilateral Throughout] Respiratory 16 18 16 Rate Respiratory Rate [Bilateral Throughout] Blood Pressure 125/89 O2 Sat by Pulse 100 95 95 Oximetry 12/12/17 12/12/17 12/12/17 08:19 08:31 09:01 Temperature Pulse Rate 86 78 Pulse Rate [ Bilateral Throughout] Respiratory 16 17 15 Rate Respiratory Rate [Bilateral Throughout] Blood Pressure 131/79 111/56 O2 Sat by Pulse 98 95 94 Oximetry 12/12/17 12/12/17 12/12/17 09:15 09:21 09:31 Temperature Pulse Rate 78 Pulse Rate [ 85 88 Bilateral Throughout] Respiratory 18 Rate Respiratory 18 18 Rate [Bilateral Throughout] Blood Pressure 111/56 O2 Sat by Pulse 95 Oximetry ED Medical Decision Making - Lab Data Result diagrams: 12/12/17 06:59 12/12/17 06:59 - Medical Decision Making The patient was seen and examined by myself. The patient is placed on a radiation monitor and continuous pulse ox. On initial evaluation, the patient was found to be in no distress. Evaluation orders were placed. The patient is given a breathing treatment and steroids for txt of her asthma. EKG was negative for findings suggestive of acute cardiac infarct. Labs and imaging are obtained. Chest x-ray is negative for pneumothorax, focal consolidation, pulmonary vascular congestion, pleural effusion, or other obvious acute cardiopulmonary disease process. Lab results were non-concerning including levels of troponin, WBC, hemoglobin, hematocrit, electrolytes, renal function.The patient was reevaluated and reported that their symptoms were markedly improved. On reexamination the patient is found to have normal respiratory rate and O2 sat on pulse oximetry, with no costal retractions or diminishment of breath sounds on auscultation. As the patient has a TATE risk score less than 2, and a well's score less than 2, the patient is at low risk of ACS or pulmonary emboli etiology of their symptoms. The patient is stable for discharge with outpatient follow-up. The patient is given follow-up and return instructions. The patient expressed understanding and agreed with the plan. The patient is discharged in stable condition. Critical care attestation.: If time is entered above; I have spent that time in minutes in the direct care of this critically ill patient, excluding procedure time. ED Disposition Clinical Impression: Acute chest pain Asthma with acute exacerbation Qualifiers: Asthma severity: moderate Asthma persistence: persistent Qualified Code(s): J45.41 - Moderate persistent asthma with (acute) exacerbation Acute sinusitis Qualifiers: Sinusitis location: maxillary Recurrence: not specified as recurrent Qualified Code(s): J01.00 - Acute maxillary sinusitis, unspecified Disposition: - TO HOME OR SELFCARE Is pt being admited?: No Does the pt Need Aspirin: No Condition: Stable Instructions: Chest Pain (ED), Asthma (ED), Costochondritis (ED) Prescriptions: ALBUTEROL Inhaler [ProAir HFA Inhaler] 2 puff IH QID PRN #30 inhalation PRN Reason: Shortness Of Breath Referrals: PRIMARY CARE, [Primary Care Provider] - 3-5 Days Time of Disposition: 10:17
[2017-12-12 11:27] VITALS: BP 111/47
== END 2017-12-12 11:29 | disposition home or self-care (01) ==
LOC: ED 06:01
DX: J45.41 Moderate persistent asthma with (acute) exacerbation (principal); J01.00 Acute maxillary sinusitis, unspecified; K21.9 Gastro-esophageal reflux disease without esophagitis; E89.0 Postprocedural hypothyroidism; Z88.1 Allergy status to other antibiotic agents; Z88.6 Allergy status to analgesic agent; Z91.040 Latex allergy status
CPT/HCPCS: 36415; 71045; 80048; 84484; 84703; 85025; 93005; 93010; 94640; 99285; J7512

== ENCOUNTER 2018-01-03 01:09 | Emergency (ER) | payer MEDICARE ==
[2018-01-03] MEDS ORDERED: DUONEB *Not for PRN Use IH ONE ×4 (01:18→01:34)
[2018-01-03 04:05] VITALS: BP 117/65
--- NOTE | 2018-01-03 05:46 | Emergency Department Report ---
ED Asthma HPI - General Chief Complaint: Adult Asthma Stated Complaint: ASTHMA ATTACK Time Seen by Provider: 01/03/18 05:19 Source: patient Mode of arrival: Ambulatory Limitations: No Limitations - History of Present Illness Initial Comments: This is a 47-year-old female that presents with asthma exacerbation times one day. Last night she woke up with wheezing and shortness of breath. Patient denies any chest pain, shortness of breath, fever, chills, nausea, vomiting, headache, stiff neck. Patient denies any calf pain or calf tenderness. Patient denies any hemoptysis. It is any recent travels, long car ride. Patient states past medical history includes asthma, GERD. MD Complaint: "asthma attack", wheezing -: Last night Asthma History: childhood onset Severity: mild Context: none known Associated Symptoms: none Treatments Prior to Arrival: inhaled bronchodilator - Related Data Home Medications Medication Instructions Recorded Confirmed Last Taken Ipratropium/Albuterol Sulfate 1 ampul IH Q8HR 12/12/17 12/18/17 Unknown [DUONEB *Not for PRN Use*] Previous Rx's Medication Instructions Recorded Last Taken Type Levothyroxine [Synthroid] 25 mcg PO DAILY@0600 tablet 11/03/17 12/12/17 Rx Montelukast [Singulair] 10 mg PO QHS #30 tablet 11/03/17 Unknown Rx ALBUTEROL Inhaler [ProAir HFA 2 puff IH QID PRN #30 inhalation 12/12/17 Unknown Rx Inhaler] Benzonatate 200 mg PO TID PRN #30 capsule 12/18/17 Unknown Rx ALBUTEROL Inhaler [ProAir HFA 2 puff IH QID PRN #1 inhalation 01/03/18 Unknown Rx Inhaler] Prednisone [predniSONE 10 mg 10 mg PO .TAPER #1 tab.ds.pk 01/03/18 Unknown Rx (6-Day Pack, 21 Tabs)] Allergies Allergy/AdvReac Type Severity Reaction Status Date / Time doxycycline Allergy Rash Verified 08/27/17 03:09 ketorolac tromethamine Allergy Anaphylaxis Verified 08/27/17 03:09 [From Toradol] Latex, Natural Rubber Allergy Angioedema Verified 08/27/17 03:09 morphine Allergy Shortness Verified 08/27/17 03:09 of Breath azithromycin [From Zithromax] AdvReac Anaphylaxis Verified 08/27/17 03:09 NSAIDS (Non-Steroidal AdvReac Anaphylaxis Verified 08/27/17 03:09 Anti-Inflamma Penicillins AdvReac Hives Verified 08/27/17 03:09 ED Review of Systems ROS: Stated complaint: ASTHMA ATTACK Other details as noted in HPI Constitutional: denies: chills, fever Eyes: denies: eye pain, eye discharge, vision change ENT: denies: ear pain, throat pain Respiratory: shortness of breath, wheezing. denies: cough Cardiovascular: denies: chest pain, palpitations Endocrine: no symptoms reported Gastrointestinal: denies: abdominal pain, nausea, diarrhea Genitourinary: denies: urgency, dysuria, discharge Musculoskeletal: denies: back pain, joint swelling, arthralgia Skin: denies: rash, lesions Neurological: denies: headache, weakness, paresthesias Psychiatric: denies: anxiety, depression Hematological/Lymphatic: denies: easy bleeding, easy bruising ED Past Medical Hx - Past Medical History Hx Hypertension: No Hx Heart Attack/AMI: No Hx Congestive Heart Failure: No Hx Diabetes: No Hx Deep Vein Thrombosis: No Hx Pulmonary Embolism: No Hx GERD: Yes Hx Liver Disease: No Hx Renal Disease: No Hx Sickle Cell Disease: No Hx Arthritis: No Hx Seizures: No Hx Kidney Stones: No Hx Asthma: Yes Hx COPD: No Hx Tuberculosis: No Hx Dementia: No Hx HIV: No Additional medical history: sinus problems --chronic sinusitis / ABD HERNIA,. Prior Intubations. Obesity. - Surgical History Hx Coronary Stent: No Hx Open Heart Surgery: No Hx Pacemaker: No Hx Internal Defibrillator: No Hx Cholecystectomy: No Hx Appendectomy: No Hx Breast Surgery: No Additional Surgical History: x4, umbilical hernia repair, sinus surgeries, D&C. thyroid removal - Social History Smoking Status: Never Smoker Substance Use Type: None - Medications Home Medications: Home Medications Medication Instructions Recorded Confirmed Last Taken Type Levothyroxine [Synthroid] 25 mcg PO DAILY@0600 tablet 11/03/17 12/18/17 Rx Montelukast [Singulair] 10 mg PO QHS #30 tablet 11/03/17 12/18/17 Unknown Rx ALBUTEROL Inhaler [ProAir HFA 2 puff IH QID PRN #30 inhalation 12/12/17 Unknown Rx Inhaler] Ipratropium/Albuterol Sulfate 1 ampul IH Q8HR 12/12/17 12/18/17 Unknown History [DUONEB *Not for PRN Use*] Benzonatate 200 mg PO TID PRN #30 capsule 12/18/17 Unknown Rx ALBUTEROL Inhaler [ProAir HFA 2 puff IH QID PRN #1 inhalation 01/03/18 Unknown Rx Inhaler] Prednisone [predniSONE 10 mg 10 mg PO .TAPER #1 tab.ds.pk 01/03/18 Unknown Rx (6-Day Pack, 21 Tabs)] ED Physical Exam - General Limitations: No Limitations General appearance: alert, in no apparent distress - Head Head exam: Present: atraumatic, normocephalic - Eye Eye exam: Present: normal appearance Pupils: Present: normal accommodation - ENT ENT exam: Present: normal exam, mucous membranes moist - Neck Neck exam: Present: normal inspection, full ROM - Respiratory Respiratory exam: Present: normal lung sounds bilaterally, wheezes (bilateral upper and lower lobes). Absent: respiratory distress, rales, rhonchi, stridor, chest wall tenderness, accessory muscle use, decreased breath sounds, prolonged expiratory - Cardiovascular Cardiovascular Exam: Present: regular rate, normal rhythm, normal heart sounds. Absent: irregular rhythm, systolic murmur, diastolic murmur, rubs, gallop - GI/Abdominal GI/Abdominal exam: Present: soft, normal bowel sounds. Absent: distended, tenderness, guarding, rebound, rigid, diminished bowel sounds - Extremities Exam Extremities exam: Present: normal inspection, full ROM, normal capillary refill. Absent: tenderness, calf tenderness - Back Exam Back exam: Present: normal inspection, full ROM - Neurological Exam Neurological exam: Present: alert, oriented X3, normal gait - Psychiatric Psychiatric exam: Present: normal affect, normal mood - Skin Skin exam: Present: warm, dry, intact, normal color. Absent: rash ED Course Vital Signs 01/03/18 01/03/18 01/03/18 01:23 01:33 01:36 Temperature Pulse Rate Pulse Rate [ 93 H 96 H 96 H Anterior Bilateral] Respiratory Rate Respiratory 18 18 18 Rate [Anterior Bilateral] Blood Pressure O2 Sat by Pulse Oximetry 01/03/18 01/03/18 01:46 03:59 Temperature 98.6 F Pulse Rate 93 H Pulse Rate [ 90 Anterior Bilateral] Respiratory 20 Rate Respiratory 18 Rate [Anterior Bilateral] Blood Pressure 117/65 O2 Sat by Pulse 100 Oximetry - Reevaluation(s) Reevaluation #1: 01/03/18 05:44 Patient is speaking in full sentences with no signs of distress noted. ED Medical Decision Making - Medical Decision Making This is a 47-year-old female that presents with asthma exacerbation. Patient is stable and was extended by me. Patient received DuoNeb and Solu-Medrol which patient his symptoms has resolved. Posttreatment assessment wheezing has subsided. Patient refused a chest x-ray and stated she just needs to be treated with prednisone and albuterol. I instructed and educated patient my concerns and further evaluation but patient stated that she was signed AMA form and just wants to be treated with prednisone. Patient signed AMA form. Patient was instructed to Follow-up with a primary care doctor in 3-5 days or if symptoms worsen and continue return to emergency room as soon as possible. At time of signing AMA form, the patient does not seem toxic or ill in appearance. No acute signs of distress noted. Patient agrees to discharge treatment plan of care. No further questions noted by the patient. Critical care attestation.: If time is entered above; I have spent that time in minutes in the direct care of this critically ill patient, excluding procedure time. ED Disposition Clinical Impression: Asthma exacerbation Qualifiers: Asthma severity: mild Asthma persistence: intermittent Qualified Code(s): J45.21 - Mild intermittent asthma with (acute) exacerbation Disposition: LEFT AGAINST MED ADVICE Is pt being admited?: No Does the pt Need Aspirin: No Condition: Stable Instructions: Asthma (ED) Additional Instructions: Follow-up with a primary care doctor in 3-5 days or if symptoms worsen and continue return to emergency room as soon as possible. Prescriptions: ALBUTEROL Inhaler [ProAir HFA Inhaler] 2 puff IH QID PRN #1 inhalation PRN Reason: Shortness Of Breath Prednisone [predniSONE 10 mg (6-Day Pack, 21 Tabs)] 10 mg PO .TAPER #1 tab.ds.pk Referrals: LINDSAY TONEY MD [Primary Care Provider] - 3-5 Days PRIMARY CARE, [Referring] - 3-5 Days [facility] [Outside] - 3-5 Days [facility] [Outside] - 3-5 Days Forms: AMA Form
== END 2018-01-03 05:55 | disposition left against medical advice (07) ==
LOC: ED 01:09
DX: J45.901 Unspecified asthma with (acute) exacerbation (principal); K21.9 Gastro-esophageal reflux disease without esophagitis; Z88.0 Allergy status to penicillin; Z88.1 Allergy status to other antibiotic agents; Z88.5 Allergy status to narcotic agent; Z91.040 Latex allergy status
CPT/HCPCS: 94640; 96372; 99282; J2930

== ENCOUNTER 2018-01-29 13:01 | Emergency (ER) | payer MEDICARE ==
[2018-01-29] MEDS ORDERED: PROVENTIL IH ONE (14:32)
[2018-01-29] MEDS ORDERED: DELTASONE PO ONE (14:32)
[2018-01-29] MEDS ORDERED: ATROVENT IH ONE (14:32)
--- NOTE | 2018-01-29 14:32 | Emergency Department Report ---
Blank Doc - Documentation Documentation: Patient is a 47-year-old female history of asthma who was driving her car today and started becoming very dizzy with some shortness of breath. Patient's had upper respiratory type symptoms for the past several days. Patient took a breathing treatment before arrival but states that she didn't feel much better so she decided to come for evaluation. On brief physical exam the patient is not moving a adequately shallow breathing. Patient will be given a neb treatment and 60 of prednisone and a chest x-ray was done patient be reassessed. [place]
[2018-01-29] MEDS ORDERED: DECADRON IM ONE (14:58)
--- NOTE | 2018-01-29 15:11 | Emergency Department Report ---
ED Asthma HPI - General Chief Complaint: Upper Respiratory Infection Stated Complaint: DIZZYNESS Time Seen by Provider: 01/29/18 14:22 Source: patient Mode of arrival: Wheelchair Limitations: No Limitations - History of Present Illness Initial Comments: This is a 47-year-old female nontoxic, well nourished in appearance, no acute signs of distress presents to the ED with c/o of wheezing and shortness of breathe. Patient stated she started to get nasal congestion for 3 days due to pollen and this is what triggers her asthma exacerbation. Patient stated that she went outside today and started to drive for 5 minutes and developed worse wheezing, coughing, and became dizzy. Patient denies any recent travels, long car, recent hospital stays. Patient denies any calf pain or calf tenderness. Patient denies any chest pain, fever, chills, nausea, vomiting, hemoptysis, numbness, tingling, headache or stiff neck. PMH includes asthma. MD Complaint: shortness of breath, wheezing -: days(s) (3) Asthma History: childhood onset Severity: mild Context: none known Associated Symptoms: none Treatments Prior to Arrival: inhaled bronchodilator - Related Data Current Asthma Therapy: inhaled bronchodilator Home Medications Medication Instructions Recorded Confirmed Last Taken Ipratropium/Albuterol Sulfate 1 ampul IH Q8HR 12/12/17 12/18/17 Unknown [DUONEB *Not for PRN Use*] Previous Rx's Medication Instructions Recorded Last Taken Type Levothyroxine [Synthroid] 25 mcg PO DAILY@0600 tablet 11/03/17 12/12/17 Rx Montelukast [Singulair] 10 mg PO QHS #30 tablet 11/03/17 Unknown Rx ALBUTEROL Inhaler [ProAir HFA 2 puff IH QID PRN #30 inhalation 12/12/17 Unknown Rx Inhaler] Benzonatate 200 mg PO TID PRN #30 capsule 12/18/17 Unknown Rx ALBUTEROL Inhaler [ProAir HFA 2 puff IH QID PRN #1 inhalation 01/03/18 Unknown Rx Inhaler] Prednisone [predniSONE 10 mg 10 mg PO .TAPER #1 tab.ds.pk 01/03/18 Unknown Rx (6-Day Pack, 21 Tabs)] ALBUTEROL Inhaler [ProAir HFA 2 puff IH QID PRN #1 inhalation 01/29/18 Unknown Rx Inhaler] ALBUTEROL NEB's [Proventil 0.083% 2.5 mg IH TID PRN #1 box 01/29/18 Unknown Rx NEBS] Loratadine [Claritin] 10 mg PO DAILY #30 tablet 01/29/18 Unknown Rx Prednisone [predniSONE 10 mg 10 mg PO .TAPER #1 tab.ds.pk 01/29/18 Unknown Rx (6-Day Pack, 21 Tabs)] Allergies Allergy/AdvReac Type Severity Reaction Status Date / Time doxycycline Allergy Rash Verified 01/29/18 13:18 ketorolac tromethamine Allergy Anaphylaxis Verified 01/29/18 13:18 [From Toradol] Latex, Natural Rubber Allergy Angioedema Verified 01/29/18 13:18 morphine Allergy Shortness Verified 01/29/18 13:18 of Breath azithromycin [From Zithromax] AdvReac Anaphylaxis Verified 01/29/18 13:18 NSAIDS (Non-Steroidal AdvReac Anaphylaxis Verified 01/29/18 13:18 Anti-Inflamma Penicillins AdvReac Hives Verified 01/29/18 13:18 ED Review of Systems ROS: Stated complaint: DIZZYNESS Other details as noted in HPI Constitutional: denies: chills, fever Eyes: denies: eye pain, eye discharge, vision change ENT: denies: ear pain, throat pain Respiratory: shortness of breath, wheezing. denies: cough Cardiovascular: denies: chest pain, palpitations Endocrine: no symptoms reported Gastrointestinal: denies: abdominal pain, nausea, diarrhea Genitourinary: denies: urgency, dysuria, discharge Musculoskeletal: denies: back pain, joint swelling, arthralgia Skin: denies: rash, lesions Neurological: denies: headache, weakness, paresthesias Psychiatric: denies: anxiety, depression Hematological/Lymphatic: denies: easy bleeding, easy bruising ED Past Medical Hx - Past Medical History Hx Hypertension: No Hx Heart Attack/AMI: No Hx Congestive Heart Failure: No Hx Diabetes: No Hx Deep Vein Thrombosis: No Hx Pulmonary Embolism: No Hx GERD: Yes Hx Liver Disease: No Hx Renal Disease: No Hx Sickle Cell Disease: No Hx Arthritis: No Hx Seizures: No Hx Kidney Stones: No Hx Asthma: Yes Hx COPD: No Hx Tuberculosis: No Hx Dementia: No Hx HIV: No Additional medical history: sinus problems --chronic sinusitis / ABD HERNIA,. Prior Intubations. Obesity. - Surgical History Hx Coronary Stent: No Hx Open Heart Surgery: No Hx Pacemaker: No Hx Internal Defibrillator: No Hx Cholecystectomy: No Hx Appendectomy: No Hx Breast Surgery: No Additional Surgical History: x4, umbilical hernia repair, sinus surgeries, D&C. thyroid removal - Social History Smoking Status: Never Smoker Substance Use Type: None - Medications Home Medications: Home Medications Medication Instructions Recorded Confirmed Last Taken Type Levothyroxine [Synthroid] 25 mcg PO DAILY@0600 tablet 11/03/17 12/18/17 Rx Montelukast [Singulair] 10 mg PO QHS #30 tablet 11/03/17 12/18/17 Unknown Rx ALBUTEROL Inhaler [ProAir HFA 2 puff IH QID PRN #30 inhalation 12/12/17 Unknown Rx Inhaler] Ipratropium/Albuterol Sulfate 1 ampul IH Q8HR 12/12/17 12/18/17 Unknown History [DUONEB *Not for PRN Use*] Benzonatate 200 mg PO TID PRN #30 capsule 12/18/17 Unknown Rx ALBUTEROL Inhaler [ProAir HFA 2 puff IH QID PRN #1 inhalation 01/03/18 Unknown Rx Inhaler] Prednisone [predniSONE 10 mg 10 mg PO .TAPER #1 tab.ds.pk 01/03/18 Unknown Rx (6-Day Pack, 21 Tabs)] ALBUTEROL Inhaler [ProAir HFA 2 puff IH QID PRN #1 inhalation 01/29/18 Unknown Rx Inhaler] ALBUTEROL NEB's [Proventil 0.083% 2.5 mg IH TID PRN #1 box 01/29/18 Unknown Rx NEBS] Loratadine [Claritin] 10 mg PO DAILY #30 tablet 01/29/18 Unknown Rx Prednisone [predniSONE 10 mg 10 mg PO .TAPER #1 tab.ds.pk 01/29/18 Unknown Rx (6-Day Pack, 21 Tabs)] ED Physical Exam - General Limitations: No Limitations General appearance: alert, in no apparent distress - Head Head exam: Present: atraumatic, normocephalic - Eye Eye exam: Present: normal appearance Pupils: Present: normal accommodation - ENT ENT exam: Present: normal exam, normal orophraynx, mucous membranes moist, TM's normal bilaterally, normal external ear exam - Neck Neck exam: Present: normal inspection, full ROM. Absent: tenderness, meningismus, lymphadenopathy - Respiratory Respiratory exam: Present: normal lung sounds bilaterally, wheezes (bilateral upper lobes). Absent: respiratory distress, rales, rhonchi, stridor, chest wall tenderness, accessory muscle use, decreased breath sounds, prolonged expiratory - Cardiovascular Cardiovascular Exam: Present: regular rate, normal rhythm, normal heart sounds. Absent: bradycardia, tachycardia, irregular rhythm, systolic murmur, diastolic murmur, rubs, gallop - GI/Abdominal GI/Abdominal exam: Present: soft, normal bowel sounds - Rectal Rectal exam: Present: deferred - Extremities Exam Extremities exam: Present: normal inspection, full ROM, normal capillary refill. Absent: tenderness, calf tenderness - Back Exam Back exam: Present: normal inspection, full ROM - Neurological Exam Neurological exam: Present: alert, oriented X3, normal gait - Psychiatric Psychiatric exam: Present: normal affect, normal mood - Skin Skin exam: Present: warm, dry, intact, normal color. Absent: rash ED Course Vital Signs 01/29/18 01/29/18 01/29/18 13:18 14:32 15:09 Temperature 98.2 F Pulse Rate 80 Pulse Rate [ 84 88 Bilateral] Respiratory 16 Rate Respiratory 16 16 Rate [Bilateral ] Blood Pressure 127/77 O2 Sat by Pulse 99 Oximetry - Reevaluation(s) Reevaluation #1: 01/29/18 15:12 Patient is speaking in full sentences with no signs of distress noted. - Consultations Consultation #1: 01/29/18 15:13 Patient has been consulted with Dr. Dowling about patient history, physical exam , and labs and examined and screened patient and agrees to ED plan of care and discharge plan of care. ED Medical Decision Making - Medical Decision Making This is a 41-year-old male that presents with asthma exacerbation. Patient is stable and was examined by me. Chest x-ray has been obtained and dictated by the radiologist within normal limits. Patient is notified of the x-ray report with no questions noted by the patient. Patient did receive DuoNeb and steroids in the ED which patient the symptoms has resolved and subsided. Posttreatment and there is no wheezing upon auscultation. Patient is discharged with albuterol and prednisone. Patient was referred to Follow-up with a primary care doctor in 3-5 days or if symptoms worsen and continue return to emergency room as soon as possible. At time of discharge, the patient does not seem toxic or ill in appearance. No acute signs of distress noted. Patient agrees to discharge treatment plan of care. No further questions noted by the patient. This chart is dictated with using [employer] Dictation Program Critical care attestation.: If time is entered above; I have spent that time in minutes in the direct care of this critically ill patient, excluding procedure time. ED Disposition Clinical Impression: Asthma exacerbation Qualifiers: Asthma severity: mild Asthma persistence: intermittent Qualified Code(s): J45.21 - Mild intermittent asthma with (acute) exacerbation Disposition: TO HOME OR SELFCARE Is pt being admited?: No Does the pt Need Aspirin: No Condition: Stable Instructions: Albuterol (By breathing), Prednisone (By mouth), Asthma (ED) Additional Instructions: Follow-up with a primary care doctor in 3-5 days or if symptoms worsen and continue return to emergency room as soon as possible. Prescriptions: ALBUTEROL Inhaler [ProAir HFA Inhaler] 2 puff IH QID PRN #1 inhalation PRN Reason: Shortness Of Breath ALBUTEROL NEB's [Proventil 0.083% NEBS] 2.5 mg IH TID PRN #1 box PRN Reason: Wheezing Loratadine [Claritin] 10 mg PO DAILY #30 tablet Prednisone [predniSONE 10 mg (6-Day Pack, 21 Tabs)] 10 mg PO .TAPER #1 tab.ds.pk Referrals: PRIMARY CAREMD [Primary Care Provider] - 3-5 Days INOCENTE REDD MD [Staff Physician] - 3-5 Days [facility] [Outside] - 3-5 Days [facility] [Outside] - 3-5 Days Forms: Work/School Release Form(ED)
--- NOTE | 2018-01-29 15:45 | XRay Report ---
FINAL REPORT EXAM: XR CHEST ROUTINE 2V HISTORY: dyspnea COMPARISON: Chest radiograph performed on 12/17/2017 TECHNIQUE: Frontal and lateral views of the chest. FINDINGS: The cardiomediastinal silhouette is normal in appearance. The lungs are clear without focal consolidation. There is no pleural effusion or pneumothorax. There is no acute soft tissue or osseous abnormality. IMPRESSION: No acute cardiopulmonary disease.
[2018-01-29 18:12] VITALS: BP 114/58
== END 2018-01-29 18:11 | disposition home or self-care (01) ==
LOC: ED 13:01
DX: J45.21 Mild intermittent asthma with (acute) exacerbation (principal); K21.9 Gastro-esophageal reflux disease without esophagitis; E89.0 Postprocedural hypothyroidism; Z88.1 Allergy status to other antibiotic agents; Z88.6 Allergy status to analgesic agent; Z91.040 Latex allergy status
CPT/HCPCS: 71046; 94644; 96372; 99283; J1100

== ENCOUNTER 2018-02-22 23:30 | Emergency (ER) | payer MEDICARE ==
[2018-02-22] MEDS ORDERED: DUONEB *Not for PRN Use IH ONE ×2 (23:41→23:56)
--- NOTE | 2018-02-23 00:31 | Emergency Department Report ---
ED Asthma HPI - General Chief Complaint: Adult Asthma Stated Complaint: ASTHMA Time Seen by Provider: 02/23/18 00:24 Source: patient Mode of arrival: Ambulatory Limitations: No Limitations - History of Present Illness Initial Comments: Patient is 47-year-old female history of asthma presented to the ER complaining of shortness of breath and wheezing started this evening. Patient denied any fever or chest pain. No nausea no vomiting. MD Complaint: "asthma attack", shortness of breath, wheezing -: This evening Asthma History: history of prior ED visit Severity: moderate Associated Symptoms: none - Related Data Current Asthma Therapy: inhaled bronchodilator Home Medications Medication Instructions Recorded Confirmed Last Taken Ipratropium/Albuterol Sulfate 1 ampul IH Q8HR 12/12/17 12/18/17 Unknown [DUONEB *Not for PRN Use*] Previous Rx's Medication Instructions Recorded Last Taken Type Levothyroxine [Synthroid] 25 mcg PO DAILY@0600 tablet 11/03/17 12/12/17 Rx Montelukast [Singulair] 10 mg PO QHS #30 tablet 11/03/17 Unknown Rx ALBUTEROL Inhaler [ProAir HFA 2 puff IH QID PRN #30 inhalation 12/12/17 Unknown Rx Inhaler] Benzonatate 200 mg PO TID PRN #30 capsule 12/18/17 Unknown Rx ALBUTEROL Inhaler [ProAir HFA 2 puff IH QID PRN #1 inhalation 01/03/18 Unknown Rx Inhaler] Prednisone [predniSONE 10 mg 10 mg PO .TAPER #1 tab.ds.pk 01/03/18 Unknown Rx (6-Day Pack, 21 Tabs)] ALBUTEROL Inhaler [ProAir HFA 2 puff IH QID PRN #1 inhalation 01/29/18 Unknown Rx Inhaler] ALBUTEROL NEB's [Proventil 0.083% 2.5 mg IH TID PRN #1 box 01/29/18 Unknown Rx NEBS] Loratadine [Claritin] 10 mg PO DAILY #30 tablet 01/29/18 Unknown Rx Prednisone [predniSONE 10 mg 10 mg PO .TAPER #1 tab.ds.pk 01/29/18 Unknown Rx (6-Day Pack, 21 Tabs)] Allergies Allergy/AdvReac Type Severity Reaction Status Date / Time doxycycline Allergy Rash Verified 04/25/18 13:18 ketorolac tromethamine Allergy Anaphylaxis Verified 01/29/18 13:18 [From Toradol] Latex, Natural Rubber Allergy Angioedema Verified 01/29/18 13:18 morphine Allergy Shortness Verified 01/29/18 13:18 of Breath azithromycin [From Zithromax] AdvReac Anaphylaxis Verified 01/29/18 13:18 NSAIDS (Non-Steroidal AdvReac Anaphylaxis Verified 01/29/18 13:18 Anti-Inflamma Penicillins AdvReac Hives Verified 01/29/18 13:18 ED Review of Systems ROS: Stated complaint: ASTHMA Other details as noted in HPI Comment: All other systems reviewed and negative Constitutional: denies: chills, fever Respiratory: shortness of breath, SOB at rest, wheezing. denies: cough, stridor Cardiovascular: denies: chest pain, palpitations, dyspnea on exertion, orthopnea Gastrointestinal: denies: abdominal pain, nausea, vomiting, diarrhea, constipation, hematemesis, hematochezia Neurological: denies: headache, weakness, numbness, paresthesias ED Past Medical Hx - Past Medical History Hx Hypertension: No Hx Heart Attack/AMI: No Hx Congestive Heart Failure: No Hx Diabetes: No Hx Deep Vein Thrombosis: No Hx Pulmonary Embolism: No Hx GERD: Yes Hx Liver Disease: No Hx Renal Disease: No Hx Sickle Cell Disease: No Hx Arthritis: No Hx Seizures: No Hx Kidney Stones: No Hx Asthma: Yes Hx COPD: No Hx Tuberculosis: No Hx Dementia: No Hx HIV: No Additional medical history: sinus problems --chronic sinusitis / ABD HERNIA,. Prior Intubations. Obesity. - Surgical History Hx Coronary Stent: No Hx Open Heart Surgery: No Hx Pacemaker: No Hx Internal Defibrillator: No Hx Cholecystectomy: No Hx Appendectomy: No Hx Breast Surgery: No Additional Surgical History: x4, umbilical hernia repair, sinus surgeries, D&C. thyroid removal - Social History Smoking Status: Never Smoker Substance Use Type: None - Medications Home Medications: Home Medications Medication Instructions Recorded Confirmed Last Taken Type Levothyroxine [Synthroid] 25 mcg PO DAILY@0600 tablet 11/03/17 12/18/17 Rx Montelukast [Singulair] 10 mg PO QHS #30 tablet 11/03/17 12/18/17 Unknown Rx ALBUTEROL Inhaler [ProAir HFA 2 puff IH QID PRN #30 inhalation 12/12/17 Unknown Rx Inhaler] Ipratropium/Albuterol Sulfate 1 ampul IH Q8HR 12/12/17 12/18/17 Unknown History [DUONEB *Not for PRN Use*] Benzonatate 200 mg PO TID PRN #30 capsule 12/18/17 Unknown Rx ALBUTEROL Inhaler [ProAir HFA 2 puff IH QID PRN #1 inhalation 01/03/18 Unknown Rx Inhaler] Prednisone [predniSONE 10 mg 10 mg PO .TAPER #1 tab.ds.pk 01/03/18 Unknown Rx (6-Day Pack, 21 Tabs)] ALBUTEROL Inhaler [ProAir HFA 2 puff IH QID PRN #1 inhalation 01/29/18 Unknown Rx Inhaler] ALBUTEROL NEB's [Proventil 0.083% 2.5 mg IH TID PRN #1 box 01/29/18 Unknown Rx NEBS] Loratadine [Claritin] 10 mg PO DAILY #30 tablet 01/29/18 Unknown Rx Prednisone [predniSONE 10 mg 10 mg PO .TAPER #1 tab.ds.pk 01/29/18 Unknown Rx (6-Day Pack, 21 Tabs)] ED Physical Exam - General Limitations: No Limitations General appearance: alert, in no apparent distress - Head Head exam: Present: atraumatic, normocephalic, normal inspection - Eye Eye exam: Present: normal appearance, PERRL - ENT ENT exam: Present: normal exam, normal orophraynx, mucous membranes moist - Neck Neck exam: Present: normal inspection, full ROM. Absent: tenderness, meningismus, lymphadenopathy, thyromegaly - Respiratory Respiratory exam: Present: wheezes, rhonchi, decreased breath sounds, prolonged expiratory. Absent: chest wall tenderness, accessory muscle use - Cardiovascular Cardiovascular Exam: Present: tachycardia - GI/Abdominal GI/Abdominal exam: Present: soft, normal bowel sounds. Absent: distended, tenderness, guarding, rebound, rigid, organomegaly, mass, bruit, pulsatile mass , hernia - Extremities Exam Extremities exam: Present: normal inspection, full ROM, normal capillary refill - Back Exam Back exam: Present: normal inspection, full ROM. Absent: tenderness, CVA tenderness (R), CVA tenderness (L), muscle spasm, paraspinal tenderness, vertebral tenderness, rash noted - Neurological Exam Neurological exam: Present: alert, oriented X3, CN II-XII intact, normal gait, reflexes normal - Skin Skin exam: Present: warm, intact, normal color ED Course Vital Signs 02/22/18 23:49 Temperature 98.2 F Pulse Rate 108 H Respiratory 28 H Rate Blood Pressure 106/70 Blood Pressure 106/70 [Right] O2 Sat by Pulse 95 Oximetry ED Medical Decision Making - Lab Data Result diagrams: 02/23/18 00:35 02/23/18 00:35 - Radiology Data Radiology results: report reviewed Referring Physician: DONI ERICKSON Patient Name: DAHIANA GERMAN Date of : 1970 Sex: Female Report Date: 2018-02-23 Report Status: Finalized Findings [facility] [address] [place] [address] XRay Report Signed Patient: DAHIANA GERMAN MR#: [id number] : 1970 Acct:[id number] Age/Sex: 47 / F ADM Date: 02/22/18 Loc: ED Attending Dr: Ordering Physician: DONI ERICKSON Date of Service: 02/22/18 Procedure(s): XR chest routine 2V Accession Number(s): [id number] cc: DONI Alejo Time In Minutes: FINAL REPORT EXAM: XR CHEST ROUTINE 2V HISTORY: Shortness of breath COMPARISON: January 2018. FINDINGS:: Frontal and lateral views of the chest obtained. Cardiac silhouette is within normal limits. No focal consolidation or effusion. No pneumothorax. Visualized bony thorax is grossly intact. IMPRESSION:: No acute findings. Transcribed By: LMA Dictated By: BETHANY CHEATHAM MD Electronically Authenticated By: BETHANY CHEATHAM MD Signed Date/Time: 02/23/1857 DD/ TD/TT: 02/23/1857 - Medical Decision Making Patient stated that she is feeling much better. On exam lungs clear on both sides no wheezing or rhonchi. I will start patient on prednisone for 5 days and Flonase for her sinusitis. I also advised that he'll always R primary care physician. Critical care attestation.: If time is entered above; I have spent that time in minutes in the direct care of this critically ill patient, excluding procedure time. ED Disposition Clinical Impression: Asthma exacerbation Disposition: DC- TO HOME OR SELFCARE Is pt being admited?: No Condition: Stable Instructions: Asthma (ED)
[2018-02-23 00:51] LABS: Basophils # (Auto) 0.1 K/mm3 (0.0-0.1); Basophils % (Auto) 0.5 % (0.0-1.8); Eosinophils # (Auto) 0.3 K/mm3 (0.0-0.4); Eosinophils % (Auto) 2.3 % (0.0-4.3); Hematocrit 42.3 % (30.3-42.9); Hemoglobin 13.2 gm/dl (10.1-14.3); Lymphocytes # (Auto) 2.9 K/mm3 (1.2-5.4); Lymphocytes % (Auto) 21.9 % (13.4-35.0); Mean Corpuscular HGB Conc 31 % (30-34); Mean Corpuscular Hemoglobin 26 pg (28-32); Mean Corpuscular Volume 84 fl (79-97); Monocytes # (Auto) 1.3 K/mm3 (0.0-0.8); Monocytes % (Auto) 10.1 % (0.0-7.3); Platelet Count 250 K/mm3 (140-440); Red Blood Count 5.04 M/mm3 (3.65-5.03); Red Cell Distribution Width 15.4 % (13.2-15.2)
--- NOTE | 2018-02-23 01:02 | XRay Report ---
FINAL REPORT EXAM: XR CHEST ROUTINE 2V HISTORY: Shortness of breath COMPARISON: January 2018. FINDINGS:: Frontal and lateral views of the chest obtained. Cardiac silhouette is within normal limits. No focal consolidation or effusion. No pneumothorax. Visualized bony thorax is grossly intact. IMPRESSION:: No acute findings.
[2018-02-23 01:08] LABS: BUN/Creatinine Ratio 10; Blood Urea Nitrogen 10 mg/dL (7-17); Calcium 8.8 mg/dL (8.4-10.2); Hemolysis Index 17
[2018-02-23 03:20] VITALS: BP 110/56
== END 2018-02-23 03:18 | disposition home or self-care (01) ==
LOC: ED 23:30
DX: J45.901 Unspecified asthma with (acute) exacerbation (principal); K21.9 Gastro-esophageal reflux disease without esophagitis; Z88.6 Allergy status to analgesic agent; Z88.1 Allergy status to other antibiotic agents; Z88.0 Allergy status to penicillin; Z88.8 Allergy status to other drugs, medicaments and biological substances
CPT/HCPCS: 36415; 71046; 80048; 84484; 85025; 93005; 93010; 96372; 99284; J2930

== ENCOUNTER 2018-04-16 00:21 | Emergency (ER) | payer MEDICARE ==
[2018-04-16 00:57] LABS: Basophils % (Auto) 0.3 % (0.0-1.8); Eosinophils # (Auto) 0.3 K/mm3 (0.0-0.4); Eosinophils % (Auto) 2.4 % (0.0-4.3); Hematocrit 38.9 % (30.3-42.9); Hemoglobin 12.5 gm/dl (10.1-14.3); Lymphocytes # (Auto) 2.3 K/mm3 (1.2-5.4); Lymphocytes % (Auto) 22.3 % (13.4-35.0); Mean Corpuscular HGB Conc 32 % (30-34); Mean Corpuscular Hemoglobin 27 pg (28-32); Mean Corpuscular Volume 84 fl (79-97); Monocytes # (Auto) 1.3 K/mm3 (0.0-0.8); Platelet Count 224 K/mm3 (140-440); Red Blood Count 4.65 M/mm3 (3.65-5.03); Red Cell Distribution Width 15.5 % (13.2-15.2)
--- NOTE | 2018-04-16 00:57 | XRay Report ---
FINAL REPORT EXAM: XR CHEST 1V AP HISTORY: Asthma COMPARISON: February 2018 chest x-ray. FINDINGS: Frontal view(s) of the chest obtained. Cardiac silhouette within normal limits. No gross consolidation or effusion. No pneumothorax. IMPRESSION: No grossly acute findings.
[2018-04-16 01:14] LABS: Alanine Aminotransferase 25 units/L (7-56); Albumin 4.2 g/dL (3.9-5); BUN/Creatinine Ratio 15; Blood Urea Nitrogen 12 mg/dL (7-17); Calcium 9.3 mg/dL (8.4-10.2); Hemolysis Index 6
--- NOTE | 2018-04-16 04:28 | Emergency Department Report ---
ED Asthma HPI - General Chief Complaint: Adult Asthma Stated Complaint: ASTHMA Time Seen by Provider: 04/16/18 03:00 Source: patient Mode of arrival: Ambulatory Limitations: No Limitations - History of Present Illness Initial Comments: Ms. Young is a pleasant 47 yo female with adult onset asthma. Hx of second hand smoke exposure. Mother was a smoker. Recent ED visit at [facility]. Hospitalization here for acute respiratory failure hypoxia in March. WHeezing, dypsnea mild cough with asthma attack today improved with albuterol nebulizer therapy. Just finished course of steroids. PCP Dr. Shon Bruno MD Complaint: "asthma attack", shortness of breath, wheezing -: Sudden, This evening Asthma History: adult onset Severity: moderate Context: other (occurred while shopping at retail center) - Related Data Home Medications Medication Instructions Recorded Confirmed Last Taken Cetirizine HCl [Zyrtec] 10 mg PO DAILY 03/27/18 03/27/18 Unknown Fluticasone/Salmeterol [Advair 1 each PO BID 03/27/18 03/27/18 Unknown 500-50 Diskus] Previous Rx's Medication Instructions Recorded Last Taken Type ALBUTEROL NEB's [Proventil 0.083% 2.5 mg IH TID PRN #1 box 01/29/18 Unknown Rx NEBS] ALBUTEROL Inhaler [ProAir HFA 2 puff IH QID PRN #1 inhalation 03/28/18 Unknown Rx Inhaler] ALBUTEROL NEB's [Proventil 0.083% 2.5 mg IH TID PRN 30 Days nebu 03/28/18 Unknown Rx NEBS] Azithromycin [Zithromax Z-MICHELLE] 0 mg PO DAILY #1 tab 03/28/18 Unknown Rx Fluticasone [Flonase] 1 spray NS DAILY #1 bottle 03/28/18 Unknown Rx Prednisone [predniSONE 10 mg 10 mg PO .TAPER #1 tab.ds.pk 03/28/18 Unknown Rx (6-Day Pack, 21 Tabs)] Prednisone [predniSONE 10 mg 10 mg PO .TAPER #1 tab.ds.pk 04/16/18 Unknown Rx (6-Day Pack, 21 Tabs)] Allergies Allergy/AdvReac Type Severity Reaction Status Date / Time doxycycline Allergy Rash Verified 01/29/18 13:18 ketorolac tromethamine Allergy Anaphylaxis Verified 01/29/18 13:18 [From Toradol] Latex, Natural Rubber Allergy Angioedema Verified 01/29/18 13:18 morphine Allergy Shortness Verified 01/29/18 13:18 of Breath azithromycin [From Zithromax] AdvReac Anaphylaxis Verified 01/29/18 13:18 NSAIDS (Non-Steroidal AdvReac Anaphylaxis Verified 01/29/18 13:18 Anti-Inflamma Penicillins AdvReac Hives Verified 01/29/18 13:18 ED Review of Systems ROS: Stated complaint: ASTHMA Other details as noted in HPI Comment: All other systems reviewed and negative Constitutional: denies: fever Eyes: eye discharge, vision change Respiratory: cough, shortness of breath, wheezing Endocrine: no symptoms reported Gastrointestinal: denies: abdominal pain, nausea, diarrhea Musculoskeletal: denies: back pain Skin: denies: rash, lesions Neurological: denies: headache ED Past Medical Hx - Past Medical History Hx Hypertension: No Hx Heart Attack/AMI: No Hx Congestive Heart Failure: No Hx Diabetes: No Hx Deep Vein Thrombosis: No Hx Pulmonary Embolism: No Hx GERD: Yes Hx Liver Disease: No Hx Renal Disease: No Hx Sickle Cell Disease: No Hx Arthritis: No Hx Seizures: No Hx Kidney Stones: No Hx Asthma: Yes Hx COPD: No Hx Tuberculosis: No Hx Dementia: No Hx HIV: No Additional medical history: sinus problems --chronic sinusitis / ABD HERNIA,. Prior Intubations. Obesity. - Surgical History Hx Coronary Stent: No Hx Open Heart Surgery: No Hx Pacemaker: No Hx Internal Defibrillator: No Hx Cholecystectomy: No Hx Appendectomy: No Hx Breast Surgery: No Additional Surgical History: x4, umbilical hernia repair, sinus surgeries, D&C. thyroid removal - Social History Smoking Status: Never Smoker Substance Use Type: None - Medications Home Medications: Home Medications Medication Instructions Recorded Confirmed Last Taken Type ALBUTEROL NEB's [Proventil 0.083% 2.5 mg IH TID PRN #1 box 01/29/18 03/27/18 Unknown Rx NEBS] Cetirizine HCl [Zyrtec] 10 mg PO DAILY 03/27/18 03/27/18 Unknown History Fluticasone/Salmeterol [Advair 1 each PO BID 03/27/18 03/27/18 Unknown History 500-50 Diskus] ALBUTEROL Inhaler [ProAir HFA 2 puff IH QID PRN #1 inhalation 03/28/18 Unknown Rx Inhaler] ALBUTEROL NEB's [Proventil 0.083% 2.5 mg IH TID PRN 30 Days nebu 03/28/18 Unknown Rx NEBS] Azithromycin [Zithromax Z-MICHELLE] 0 mg PO DAILY #1 tab 03/28/18 Unknown Rx Fluticasone [Flonase] 1 spray NS DAILY #1 bottle 03/28/18 Unknown Rx Prednisone [predniSONE 10 mg 10 mg PO .TAPER #1 tab.ds.pk 03/28/18 Unknown Rx (6-Day Pack, 21 Tabs)] Prednisone [predniSONE 10 mg 10 mg PO .TAPER #1 tab.ds.pk 04/16/18 Unknown Rx (6-Day Pack, 21 Tabs)] ED Physical Exam - General Limitations: No Limitations General appearance: alert, in no apparent distress - Head Head exam: Present: atraumatic, normocephalic - Eye Eye exam: Present: normal appearance - ENT ENT exam: Present: mucous membranes moist - Neck Neck exam: Present: normal inspection. Absent: tenderness, meningismus - Respiratory Respiratory exam: Present: normal lung sounds bilaterally. Absent: respiratory distress, wheezes, rales, rhonchi - Cardiovascular Cardiovascular Exam: Present: regular rate, normal rhythm, normal heart sounds. Absent: bradycardia, tachycardia, systolic murmur, diastolic murmur, rubs, gallop - GI/Abdominal GI/Abdominal exam: Present: soft, normal bowel sounds. Absent: distended, tenderness, guarding, rebound - Extremities Exam Extremities exam: Present: normal inspection - Back Exam Back exam: Present: normal inspection - Neurological Exam Neurological exam: Present: alert, oriented X3 - Psychiatric Psychiatric exam: Present: normal affect, normal mood - Skin Skin exam: Present: warm, dry, intact, normal color. Absent: rash ED Course Vital Signs 04/16/18 04/16/18 04/16/18 00:30 02:01 02:08 Temperature 98.4 F 98.1 F Pulse Rate 87 77 Respiratory 20 18 Rate Blood Pressure 131/74 138/80 Blood Pressure 138/80 [Left] O2 Sat by Pulse 95 97 96 Oximetry 04/16/18 04/16/18 02:30 03:00 Temperature Pulse Rate Respiratory Rate Blood Pressure 107/63 107/54 Blood Pressure [Left] O2 Sat by Pulse 94 94 Oximetry ED Medical Decision Making - Lab Data Result diagrams: 04/16/18 00:46 04/16/18 00:46 - Radiology Data Radiology results: report reviewed - Medical Decision Making Ms. Young has hx of asthma requiring hospitalization. Clear breath sounds on exam. She has not seen PCP in 4 weeks. I recommended close f/u with Dr. Bruno. rx: prednisone taper Critical care attestation.: If time is entered above; I have spent that time in minutes in the direct care of this critically ill patient, excluding procedure time. ED Disposition Clinical Impression: Asthma exacerbation Disposition: DC- TO HOME OR SELFCARE Is pt being admited?: No Does the pt Need Aspirin: No Condition: Stable Instructions: Asthma (ED) Prescriptions: Prednisone [predniSONE 10 mg (6-Day Pack, 21 Tabs)] 10 mg PO .TAPER #1 tab.ds.pk Referrals: SHON BRUNO MD [Staff Physician] - 3-5 Days Time of Disposition: 04:30
[2018-04-16] MEDS ORDERED: DUONEB *Not for PRN Use IH ONE (04:36)
[2018-04-16 05:44] VITALS: BP 117/70
== END 2018-04-16 05:50 | disposition home or self-care (01) ==
LOC: ED 00:21
DX: J45.901 Unspecified asthma with (acute) exacerbation (principal); K21.9 Gastro-esophageal reflux disease without esophagitis; Z88.8 Allergy status to other drugs, medicaments and biological substances; Z88.6 Allergy status to analgesic agent; Z88.1 Allergy status to other antibiotic agents; Z91.040 Latex allergy status; Z77.22 Contact with and (suspected) exposure to environmental tobacco smoke (acute) (chronic)
CPT/HCPCS: 36415; 71045; 80053; 85025; 99284

== ENCOUNTER 2018-04-17 05:48 | Emergency (ER) | payer MEDICARE ==
[2018-04-17 06:18] VITALS: BP 137/78
[2018-04-17 06:38] LABS: Basophils % (Auto) 0.4 % (0.0-1.8); Eosinophils # (Auto) 0.5 K/mm3 (0.0-0.4); Eosinophils % (Auto) 5.2 % (0.0-4.3); Hematocrit 39.1 % (30.3-42.9); Hemoglobin 12.7 gm/dl (10.1-14.3); Lymphocytes # (Auto) 1.9 K/mm3 (1.2-5.4); Lymphocytes % (Auto) 21.2 % (13.4-35.0); Mean Corpuscular HGB Conc 33 % (30-34); Mean Corpuscular Hemoglobin 27 pg (28-32); Mean Corpuscular Volume 83 fl (79-97); Monocytes # (Auto) 0.7 K/mm3 (0.0-0.8); Monocytes % (Auto) 7.7 % (0.0-7.3); Platelet Count 204 K/mm3 (140-440); Red Blood Count 4.74 M/mm3 (3.65-5.03); Red Cell Distribution Width 15.3 % (13.2-15.2)
--- NOTE | 2018-04-17 07:31 | XRay Report ---
FINAL REPORT PROCEDURE: XR CHEST ROUTINE 2V TECHNIQUE: PA and lateral chest radiographs were obtained. CPT 54850 HISTORY: Shortness of breath COMPARISON: 04/15/2018 FINDINGS: Heart: Normal. Mediastinum/Vessels: Normal. Lungs/Pleural space: Normal. Bony thorax: No acute osseous abnormality. Other: IMPRESSION: Normal examination.
--- NOTE | 2018-04-17 07:36 | Emergency Department Report ---
ED Asthma HPI - General Chief Complaint: Adult Asthma Stated Complaint: SOB Time Seen by Provider: 04/17/18 07:02 Source: EMS Mode of arrival: Stretcher Limitations: No Limitations - History of Present Illness Initial Comments: 47-year-old woman with long-standing history of asthma, seen here yesterday for shortness of breath, with significant improvement with respiratory treatment here with albuterol, steroids, as well as azithromycin, but reports that her difficulty breathing has persisted, and feels that she needs additional treatment. She had previously been treated with Levaquin, as she has a significant penicillin allergy, was given azithromycin yesterday, which she reports has given her an upset stomach. She has not vomited her dose. She has had a total of 60 mg of prednisone yesterday, and usually takes a taper over about a 4 day course. She has no difficulty talking, and has been ambulatory but gets increased shortness of breath when she walks around. She has no leg swelling, no chest pain, no fever chills or diaphoresis. - Related Data Home Medications Medication Instructions Recorded Confirmed Last Taken Cetirizine HCl [Zyrtec] 10 mg PO DAILY 03/27/18 03/27/18 Unknown Fluticasone/Salmeterol [Advair 1 each PO BID 03/27/18 03/27/18 Unknown 500-50 Diskus] Previous Rx's Medication Instructions Recorded Last Taken Type ALBUTEROL Inhaler [ProAir HFA 2 puff IH QID PRN #1 inhalation 03/28/18 Unknown Rx Inhaler] ALBUTEROL NEB's [Proventil 0.083% 2.5 mg IH TID PRN 30 Days nebu 03/28/18 Unknown Rx NEBS] Azithromycin [Zithromax Z-MICHELLE] 0 mg PO DAILY #1 tab 03/28/18 Unknown Rx Fluticasone [Flonase] 1 spray NS DAILY #1 bottle 03/28/18 Unknown Rx Prednisone [predniSONE 10 mg 10 mg PO .TAPER #1 tab.ds.pk 03/28/18 Unknown Rx (6-Day Pack, 21 Tabs)] Prednisone [predniSONE 10 mg 10 mg PO .TAPER #1 tab.ds.pk 04/16/18 Unknown Rx (6-Day Pack, 21 Tabs)] ALBUTEROL NEB's [Proventil 0.083% 2.5 mg IH TID PRN #1 box 04/17/18 Unknown Rx NEBS] predniSONE [Deltasone] 20 mg PO DAILY #20 tablet 04/17/18 Unknown Rx Allergies Allergy/AdvReac Type Severity Reaction Status Date / Time doxycycline Allergy Rash Verified 01/29/18 13:18 ketorolac tromethamine Allergy Anaphylaxis Verified 01/29/18 13:18 [From Toradol] Latex, Natural Rubber Allergy Angioedema Verified 01/29/18 13:18 morphine Allergy Shortness Verified 01/29/18 13:18 of Breath azithromycin [From Zithromax] AdvReac Anaphylaxis Verified 01/29/18 13:18 NSAIDS (Non-Steroidal AdvReac Anaphylaxis Verified 01/29/18 13:18 Anti-Inflamma Penicillins AdvReac Hives Verified 01/29/18 13:18 ED Review of Systems ROS: Stated complaint: SOB Other details as noted in HPI Comment: All other systems reviewed and negative Constitutional: denies: chills, diaphoresis, fever ENT: denies: throat pain Respiratory: shortness of breath, wheezing. denies: cough Cardiovascular: denies: chest pain Endocrine: no symptoms reported Gastrointestinal: nausea. denies: abdominal pain, diarrhea Genitourinary: denies: urgency, dysuria, discharge Musculoskeletal: denies: back pain, joint swelling, arthralgia Skin: denies: rash, lesions Neurological: denies: headache, weakness, paresthesias Psychiatric: denies: anxiety, depression Hematological/Lymphatic: denies: easy bleeding, easy bruising ED Past Medical Hx - Past Medical History Previous Medical History?: Yes Hx Hypertension: No Hx Heart Attack/AMI: No Hx Congestive Heart Failure: No Hx Diabetes: No Hx Deep Vein Thrombosis: No Hx Pulmonary Embolism: No Hx GERD: Yes Hx Liver Disease: No Hx Renal Disease: No Hx Sickle Cell Disease: No Hx Arthritis: No Hx Seizures: No Hx Kidney Stones: No Hx Asthma: Yes Hx COPD: No Hx Tuberculosis: No Hx Dementia: No Hx HIV: No Additional medical history: sinus problems --chronic sinusitis / ABD HERNIA,. Prior Intubations. Obesity. - Surgical History Past Surgical History?: Yes Hx Coronary Stent: No Hx Open Heart Surgery: No Hx Pacemaker: No Hx Internal Defibrillator: No Hx Cholecystectomy: No Hx Appendectomy: No Hx Breast Surgery: No Additional Surgical History: x4, umbilical hernia repair, sinus surgeries, D&C. thyroid removal - Social History Smoking Status: Unknown if ever smoked Substance Use Type: None - Medications Home Medications: Home Medications Medication Instructions Recorded Confirmed Last Taken Type Cetirizine HCl [Zyrtec] 10 mg PO DAILY 03/27/18 03/27/18 Unknown History Fluticasone/Salmeterol [Advair 1 each PO BID 03/27/18 03/27/18 Unknown History 500-50 Diskus] ALBUTEROL Inhaler [ProAir HFA 2 puff IH QID PRN #1 inhalation 03/28/18 Unknown Rx Inhaler] ALBUTEROL NEB's [Proventil 0.083% 2.5 mg IH TID PRN 30 Days nebu 03/28/18 Unknown Rx NEBS] Azithromycin [Zithromax Z-MICHELLE] 0 mg PO DAILY #1 tab 03/28/18 Unknown Rx Fluticasone [Flonase] 1 spray NS DAILY #1 bottle 03/28/18 Unknown Rx Prednisone [predniSONE 10 mg 10 mg PO .TAPER #1 tab.ds.pk 03/28/18 Unknown Rx (6-Day Pack, 21 Tabs)] Prednisone [predniSONE 10 mg 10 mg PO .TAPER #1 tab.ds.pk 04/16/18 Unknown Rx (6-Day Pack, 21 Tabs)] ALBUTEROL NEB's [Proventil 0.083% 2.5 mg IH TID PRN #1 box 04/17/18 Unknown Rx NEBS] predniSONE [Deltasone] 20 mg PO DAILY #20 tablet 04/17/18 Unknown Rx ED Physical Exam - General Limitations: No Limitations General appearance: alert, in no apparent distress, other (species light, full sentences, no acute distress, 94% oxygenation on room air.) - Head Head exam: Present: atraumatic, normocephalic - Eye Eye exam: Present: PERRL, EOMI - ENT ENT exam: Present: normal exam, mucous membranes moist - Neck Neck exam: Present: normal inspection, full ROM. Absent: tenderness - Respiratory Respiratory exam: Present: wheezes. Absent: respiratory distress, rales, rhonchi, chest wall tenderness, accessory muscle use, decreased breath sounds - Cardiovascular Cardiovascular Exam: Present: regular rate, normal rhythm. Absent: systolic murmur, diastolic murmur, rubs, gallop - GI/Abdominal GI/Abdominal exam: Present: soft, normal bowel sounds - Rectal Rectal exam: Present: deferred - Extremities Exam Extremities exam: Present: normal inspection. Absent: pedal edema - Neurological Exam Neurological exam: Present: alert, oriented X3, CN II-XII intact. Absent: motor sensory deficit - Psychiatric Psychiatric exam: Present: normal affect, normal mood - Skin Skin exam: Present: warm, dry, intact. Absent: rash, cyanosis, petechiae, pallor, ecchymosis ED Course Vital Signs 04/17/18 04/17/18 04/17/18 06:14 07:52 08:04 Temperature 36.5 C Pulse Rate 86 Pulse Rate [ 77 83 Anterior Bilateral] Respiratory 20 Rate Respiratory 16 16 Rate [Anterior Bilateral] Blood Pressure 137/78 O2 Sat by Pulse 94 Oximetry - Reevaluation(s) Reevaluation #1: 04/17/18 08:11 She has substantial clearing of wheezes, but still has minimal end expiratory wheeze, but good respirations, feels improved symptomatically, speaks easily, and otherwise in no acute distress. ED Medical Decision Making - Lab Data Result diagrams: 04/17/18 06:23 04/17/18 06:23 - Medical Decision Making Patient has had persistence of an acute asthma exacerbation, having been seen yesterday. We discussed her need for azithromycin, and I recommended that if it nauseates her, that she have a snack or meal before taking antibiotics. She will likely need a more prolonged steroid course, and I will give her 9 day taper, 20 mg tablets, with recommendation to discontinue the previous steroid prescription. We've also provided a refill on her albuterol. - Differential Diagnosis asthma, pneumonia Critical Care Time: No Critical care attestation.: If time is entered above; I have spent that time in minutes in the direct care of this critically ill patient, excluding procedure time. ED Disposition Clinical Impression: Asthma Qualifiers: Asthma severity: moderate Asthma persistence: persistent Asthma complication type: with acute exacerbation Qualified Code(s): J45.41 - Moderate persistent asthma with (acute) exacerbation Disposition: DC-01 TO HOME OR SELFCARE Is pt being admited?: No Does the pt Need Aspirin: No Condition: Stable Instructions: Asthma (ED) Prescriptions: ALBUTEROL NEB's [Proventil 0.083% NEBS] 2.5 mg IH TID PRN #1 box PRN Reason: Wheezing predniSONE [Deltasone] 20 mg PO DAILY #20 tablet Referrals: PRIMARY CARE, [Referring] - 3-5 Days Time of Disposition: 08:13
[2018-04-17] MEDS: DUONEB *Not for PRN Use IH ONE (07:50)
[2018-04-17 08:05] LABS: BUN/Creatinine Ratio 14; Blood Urea Nitrogen 13 mg/dL (7-17); Calcium 8.8 mg/dL (8.4-10.2); Hemolysis Index 15
== END 2018-04-17 08:28 | disposition home or self-care (01) ==
LOC: ED 05:48
DX: J45.41 Moderate persistent asthma with (acute) exacerbation (principal); K21.9 Gastro-esophageal reflux disease without esophagitis
CPT/HCPCS: 36415; 71046; 80048; 84703; 85025; 93005; 93010; 94640

== ENCOUNTER 2018-04-22 20:55 | Emergency (ER) | payer MEDICARE ==
[2018-04-22] MEDS ORDERED: ASPIRIN PO ONE (21:52)
[2018-04-22 22:43] LABS: Basophils # (Auto) 0.1 K/mm3 (0.0-0.1); Basophils % (Auto) 1.1 % (0.0-1.8); Eosinophils # (Auto) 0.6 K/mm3 (0.0-0.4); Eosinophils % (Auto) 5.3 % (0.0-4.3); Hematocrit 40.5 % (30.3-42.9); Hemoglobin 13.2 gm/dl (10.1-14.3); Lymphocytes # (Auto) 2.3 K/mm3 (1.2-5.4); Mean Corpuscular HGB Conc 33 % (30-34); Mean Corpuscular Hemoglobin 27 pg (28-32); Mean Corpuscular Volume 83 fl (79-97); Monocytes # (Auto) 0.9 K/mm3 (0.0-0.8); Monocytes % (Auto) 8.3 % (0.0-7.3); Platelet Count 236 K/mm3 (140-440); Red Cell Distribution Width 15.4 % (13.2-15.2)
[2018-04-22 22:57] LABS: BUN/Creatinine Ratio 13; Blood Urea Nitrogen 9 mg/dL (7-17); Calcium 9.3 mg/dL (8.4-10.2); Hemolysis Index 27
[2018-04-23] MEDS ORDERED: DUONEB *Not for PRN Use IH ONE (02:02)
[2018-04-23] MEDS ORDERED: TYLENOL PO ONE (02:07)
--- NOTE | 2018-04-23 02:34 | XRay Report ---
FINAL REPORT EXAM: XR CHEST 1V AP HISTORY: Chest pain TECHNIQUE: Single AP portable radiograph of the chest was obtained. PRIORS: Several prior radiographs, most recent 04/17/2018 FINDINGS: There are no focal consolidations to suggest pneumonia. Subtle, left basilar opacities. No pleural effusion or pneumothorax. The cardiac silhouette is not enlarged. There is suggested mild atherosclerotic vascular calcifications. No acute osseous abnormality. IMPRESSION: Suggested subtle left basilar opacities which may represent atelectasis or early infiltrate in the appropriate clinical setting. Cardiac silhouette is not significantly enlarged and there is no current radiographic evidence of congestive heart failure.
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
[2018-04-23 06:03] VITALS: BP 117/78
== END 2018-04-23 05:40 | disposition home or self-care (01) ==
LOC: ED 20:55
DX: E86.0 Dehydration (principal); R42 Dizziness and giddiness; R07.89 Other chest pain; K21.9 Gastro-esophageal reflux disease without esophagitis; J45.909 Unspecified asthma, uncomplicated; Z90.49 Acquired absence of other specified parts of digestive tract; Z98.51 Tubal ligation status
CPT/HCPCS: 36415; 71045; 80048; 82375; 82803; 84484; 84703; 85025; 93005; 93010; 99285; G0480; 80320

== ENCOUNTER 2018-06-02 20:47 | Emergency (ER) | payer MEDICARE ==
[2018-06-02 21:26] VITALS: BP 109/61
[2018-06-02] MEDS ORDERED: NACL 0.9% 1000 ML 1,000 ML IV ONE (21:41)
[2018-06-02 22:10] LABS: Basophils % (Auto) 0.3 % (0.0-1.8); Eosinophils # (Auto) 0.3 K/mm3 (0.0-0.4); Eosinophils % (Auto) 2.6 % (0.0-4.3); Hemoglobin 13.1 gm/dl (10.1-14.3); Lymphocytes # (Auto) 2.2 K/mm3 (1.2-5.4); Lymphocytes % (Auto) 19.4 % (13.4-35.0); Mean Corpuscular HGB Conc 33 % (30-34); Mean Corpuscular Hemoglobin 27 pg (28-32); Mean Corpuscular Volume 83 fl (79-97); Monocytes # (Auto) 1.1 K/mm3 (0.0-0.8); Monocytes % (Auto) 9.6 % (0.0-7.3); Platelet Count 250 K/mm3 (140-440); Red Cell Distribution Width 15.1 % (13.2-15.2)
[2018-06-02 22:24] LABS: Alanine Aminotransferase 18 units/L (7-56); Albumin 3.7 g/dL (3.9-5); BUN/Creatinine Ratio 13; Blood Urea Nitrogen 10 mg/dL (7-17); Calcium 8.9 mg/dL (8.4-10.2); Hemolysis Index 16
[2018-06-02 22:27] LABS: Lipase 36 units/L (13-60)
[2018-06-02 23:25] LABS: Bilirubin,Urine NEG (Negative); Blood,Urine LG (Negative); Color,Urine Yellow (Yellow); Mucus,Urine FEW /HPF; Protein,Urine <15 mg/dL mg/dL (Negative); Urobilinogen,Urine < 2.0 mg/dL (<2.0)
--- NOTE | 2018-06-03 02:56 | Emergency Department Report ---
ED General Adult HPI - General Chief complaint: Nausea/Vomiting/Diarrhea Stated complaint: SEVERE STOMACH PAIN X3DAYS Time Seen by Provider: 06/03/18 02:11 Source: patient Mode of arrival: Ambulatory Limitations: No Limitations - History of Present Illness Initial comments: 47-year-old -Malaysian female presents to the emergency room for nausea vomiting abdominal pain 3 days. Patient reports that she vomited 1 the second day of her illness. She denies any dysuria reports that she's had stools today. She reports that she feeling of dyspnea nauseated. She reports that is constant. She reports her pain is generalized but mostly in the middle of her abdomen and is nonradiating. Patient denies any dysuria no fever no chills no sweats she does report a headache 2 days ago but that has improved. Patient has a past medical history of a hernia repair and sinusitis as well as asthma. She is followed by Dr. Shon Oneal. She has multiple allergies to medications which consist of doxycycline Toradol latex morphine erythromycin NSAIDs and penicillin. Location: abdomen Radiation: non-radiation Quality: other (nausea sick feeling) Consistency: constant Improves with: none Worsens with: none Associated Symptoms: loss of appetite, nausea/vomiting. denies: confusion, chest pain, cough, diaphoresis, rash, seizure - Related Data Home Medications Medication Instructions Recorded Confirmed Last Taken Cetirizine HCl [Zyrtec] 10 mg PO DAILY 03/27/18 03/27/18 Unknown Fluticasone/Salmeterol [Advair 1 each PO BID 03/27/18 03/27/18 Unknown 500-50 Diskus] Previous Rx's Medication Instructions Recorded Last Taken Type ALBUTEROL Inhaler (OR & NICU) 2 puff IH QID PRN #1 inhalation 03/28/18 Unknown Rx [ProAir HFA Inhaler] ALBUTEROL NEB's [Proventil 0.083% 2.5 mg IH TID PRN 30 Days nebu 03/28/18 Unknown Rx NEBS] Azithromycin [Zithromax Z-MICHELLE] 0 mg PO DAILY #1 tab 03/28/18 Unknown Rx Fluticasone [Flonase] 1 spray NS DAILY #1 bottle 03/28/18 Unknown Rx Prednisone [predniSONE 10 mg 10 mg PO .TAPER #1 tab.ds.pk 03/28/18 Unknown Rx (6-Day Pack, 21 Tabs)] Prednisone [predniSONE 10 mg 10 mg PO .TAPER #1 tab.ds.pk 04/16/18 Unknown Rx (6-Day Pack, 21 Tabs)] ALBUTEROL NEB's [Proventil 0.083% 2.5 mg IH TID PRN #1 box 04/17/18 Unknown Rx NEBS] predniSONE [Deltasone] 20 mg PO DAILY #20 tablet 04/17/18 Unknown Rx Allergies Allergy/AdvReac Type Severity Reaction Status Date / Time doxycycline Allergy Rash Verified 01/29/18 13:18 ketorolac tromethamine Allergy Anaphylaxis Verified 01/29/18 13:18 [From Toradol] Latex, Natural Rubber Allergy Angioedema Verified 01/29/18 13:18 morphine Allergy Shortness Verified 01/29/18 13:18 of Breath azithromycin [From Zithromax] AdvReac Anaphylaxis Verified 01/29/18 13:18 NSAIDS (Non-Steroidal AdvReac Anaphylaxis Verified 01/29/18 13:18 Anti-Inflamma Penicillins AdvReac Hives Verified 01/29/18 13:18 ED Review of Systems ROS: Stated complaint: SEVERE STOMACH PAIN X3DAYS Other details as noted in HPI Comment: All other systems reviewed and negative Constitutional: denies: chills, fever Respiratory: denies: cough, shortness of breath, wheezing Cardiovascular: denies: chest pain, palpitations Gastrointestinal: nausea, vomiting Musculoskeletal: denies: back pain, joint swelling, arthralgia ED Past Medical Hx - Past Medical History Hx Hypertension: No Hx Heart Attack/AMI: No Hx Congestive Heart Failure: No Hx Diabetes: No Hx Deep Vein Thrombosis: No Hx Pulmonary Embolism: No Hx GERD: Yes Hx Liver Disease: No Hx Renal Disease: No Hx Sickle Cell Disease: No Hx Arthritis: No Hx Seizures: No Hx Kidney Stones: No Hx Asthma: Yes Hx COPD: No Hx Tuberculosis: No Hx Dementia: No Hx HIV: No Additional medical history: sinus problems --chronic sinusitis / ABD HERNIA,. Prior Intubations. Obesity. - Surgical History Hx Coronary Stent: No Hx Open Heart Surgery: No Hx Pacemaker: No Hx Internal Defibrillator: No Hx Cholecystectomy: No Hx Appendectomy: No Hx Breast Surgery: No Additional Surgical History: x4, umbilical hernia repair, sinus surgeries, D&C. thyroid removal///tubiligation - Social History Smoking Status: Never Smoker Substance Use Type: None - Medications Home Medications: Home Medications Medication Instructions Recorded Confirmed Last Taken Type Cetirizine HCl [Zyrtec] 10 mg PO DAILY 03/27/18 03/27/18 Unknown History Fluticasone/Salmeterol [Advair 1 each PO BID 03/27/18 03/27/18 Unknown History 500-50 Diskus] ALBUTEROL Inhaler (OR & NICU) 2 puff IH QID PRN #1 inhalation 03/28/18 Unknown Rx [ProAir HFA Inhaler] ALBUTEROL NEB's [Proventil 0.083% 2.5 mg IH TID PRN 30 Days nebu 03/28/18 Unknown Rx NEBS] Azithromycin [Zithromax Z-MICHELLE] 0 mg PO DAILY #1 tab 03/28/18 Unknown Rx Fluticasone [Flonase] 1 spray NS DAILY #1 bottle 03/28/18 Unknown Rx Prednisone [predniSONE 10 mg 10 mg PO .TAPER #1 tab.ds.pk 03/28/18 Unknown Rx (6-Day Pack, 21 Tabs)] Prednisone [predniSONE 10 mg 10 mg PO .TAPER #1 tab.ds.pk 04/16/18 Unknown Rx (6-Day Pack, 21 Tabs)] ALBUTEROL NEB's [Proventil 0.083% 2.5 mg IH TID PRN #1 box 04/17/18 Unknown Rx NEBS] predniSONE [Deltasone] 20 mg PO DAILY #20 tablet 04/17/18 Unknown Rx ED Physical Exam - General Limitations: No Limitations General appearance: alert, in no apparent distress, other - Head Head exam: Present: atraumatic, normocephalic - Eye Eye exam: Present: normal appearance - ENT ENT exam: Present: mucous membranes moist (nontoxic in appearance) - Respiratory Respiratory exam: Present: wheezes - Cardiovascular Cardiovascular Exam: Present: regular rate, normal rhythm. Absent: systolic murmur, diastolic murmur, rubs, gallop - GI/Abdominal GI/Abdominal exam: Present: soft, tenderness (slight tenderness to the epigastric), normal bowel sounds. Absent: guarding, rebound, hyperactive bowel sounds - Extremities Exam Extremities exam: Present: normal inspection, full ROM - Back Exam Back exam: Present: normal inspection, full ROM. Absent: tenderness - Neurological Exam Neurological exam: Present: alert, oriented X3 - Psychiatric Psychiatric exam: Present: normal affect, normal mood - Skin Skin exam: Present: warm, dry, intact, normal color. Absent: rash ED Course Vital Signs 06/02/18 21:10 Temperature 98.9 F Pulse Rate 87 Respiratory 18 Rate Blood Pressure 109/61 O2 Sat by Pulse 97 Oximetry ED Medical Decision Making - Lab Data Result diagrams: 06/02/18 21:43 06/02/18 21:43 - Medical Decision Making Patient has been evaluated by this provider fast track. Labs completed which was a CBC CMP lipase and urinalysis. Patient will be given Zofran and started on a by mouth trial. Critical care attestation.: If time is entered above; I have spent that time in minutes in the direct care of this critically ill patient, excluding procedure time. ED Disposition Clinical Impression: Gastritis Qualifiers: Chronicity: unspecified Gastritis bleeding: without bleeding Disposition: DC-01 TO HOME OR SELFCARE Is pt being admited?: No Does the pt Need Aspirin: No Condition: Stable Referrals: PRIMARY CARE, [Primary Care Provider] - 3-5 Days
[2018-06-03] MEDS ORDERED: ZOFRAN ODT PO ONE (03:05)
[2018-06-03] MEDS ORDERED: ULTRAM ONE (04:26)
== END 2018-06-03 02:30 | disposition home or self-care (01) ==
LOC: EEVIPCON 20:47 → ED 20:47
DX: K29.70 Gastritis, unspecified, without bleeding (principal); K21.9 Gastro-esophageal reflux disease without esophagitis; J45.909 Unspecified asthma, uncomplicated; Z98.51 Tubal ligation status; G89.29 Other chronic pain; Z88.1 Allergy status to other antibiotic agents; Z91.040 Latex allergy status
CPT/HCPCS: 36415; 80053; 81001; 83690; 85025; 99283; Q0162

== ENCOUNTER 2018-06-17 23:03 | Emergency (ER) | payer MEDICARE ==
[2018-06-18 00:44] LABS: Basophils % (Auto) 0.2 % (0.0-1.8); Eosinophils # (Auto) 0.4 K/mm3 (0.0-0.4); Eosinophils % (Auto) 3.5 % (0.0-4.3); Hematocrit 40.5 % (30.3-42.9); Hemoglobin 13.3 gm/dl (10.1-14.3); Lymphocytes # (Auto) 2.2 K/mm3 (1.2-5.4); Mean Corpuscular HGB Conc 33 % (30-34); Mean Corpuscular Hemoglobin 27 pg (28-32); Mean Corpuscular Volume 83 fl (79-97); Monocytes % (Auto) 8.9 % (0.0-7.3); Platelet Count 253 K/mm3 (140-440); Red Blood Count 4.89 M/mm3 (3.65-5.03); Red Cell Distribution Width 14.7 % (13.2-15.2)
[2018-06-18 01:07] LABS: Alanine Aminotransferase 20 units/L (7-56); Albumin 4.1 g/dL (3.9-5); BUN/Creatinine Ratio 13; Blood Urea Nitrogen 10 mg/dL (7-17); Hemolysis Index 8; Lipase 22 units/L (13-60)
[2018-06-18 02:37] LABS: Bilirubin,Urine NEG (Negative); Blood,Urine NEG (Negative); Color,Urine Yellow (Yellow); Mucus,Urine 3+ /HPF; Protein,Urine <15 mg/dL mg/dL (Negative); Urobilinogen,Urine < 2.0 mg/dL (<2.0)
[2018-06-18 03:16] VITALS: BP 106/59
[2018-06-18] MEDS ORDERED: PROVENTIL IH ONE (03:47)
[2018-06-18] MEDS ORDERED: DUONEB *Not for PRN Use IH ONE (04:14)
== END 2018-06-18 10:12 | disposition left against medical advice (07) ==
LOC: ED 23:03
DX: R10.9 Unspecified abdominal pain (principal); Z53.21 Procedure and treatment not carried out due to patient leaving prior to being seen by health care provider
CPT/HCPCS: 36415; 80053; 81001; 83690; 85025; 94640

== ENCOUNTER 2018-06-18 09:40 | Emergency (ER) | payer MEDICARE ==
[2018-06-18 09:51] VITALS: BP 127/61
[2018-06-18] MEDS ORDERED: BENTYL IM ONE (10:37)
--- NOTE | 2018-06-18 10:55 | Emergency Department Report ---
ED Abdominal Pain HPI - General Chief Complaint: Abdominal Pain Stated Complaint: STOMACH PAIN Time Seen by Provider: 06/18/18 10:29 Source: patient Mode of arrival: Ambulatory Limitations: No Limitations - History of Present Illness Initial Comments: Patient is a 47-year-old -[place] female who is presenting with 3 days of nausea and diarrhea and abdominal cramps. Patient states that the cramps are intermittent. There is 6 out of 10 in severity. Patient says nausea but no vomiting but does have loose stools. Patient denies having any blood in her stools. Patient denies fevers chills cough cold congestion at this time. - Related Data Home Medications Medication Instructions Recorded Confirmed Last Taken Cetirizine HCl [Zyrtec] 10 mg PO DAILY 03/27/18 03/27/18 Unknown Fluticasone/Salmeterol [Advair 1 each PO BID 03/27/18 03/27/18 Unknown 500-50 Diskus] Previous Rx's Medication Instructions Recorded Last Taken Type ALBUTEROL Inhaler (OR & NICU) 2 puff IH QID PRN #1 inhalation 03/28/18 Unknown Rx [ProAir HFA Inhaler] ALBUTEROL NEB's [Proventil 0.083% 2.5 mg IH TID PRN 30 Days nebu 03/28/18 Unknown Rx NEBS] Azithromycin [Zithromax Z-MICHELLE] 0 mg PO DAILY #1 tab 03/28/18 Unknown Rx Fluticasone [Flonase] 1 spray NS DAILY #1 bottle 03/28/18 Unknown Rx Prednisone [predniSONE 10 mg 10 mg PO .TAPER #1 tab.ds.pk 03/28/18 Unknown Rx (6-Day Pack, 21 Tabs)] Prednisone [predniSONE 10 mg 10 mg PO .TAPER #1 tab.ds.pk 04/16/18 Unknown Rx (6-Day Pack, 21 Tabs)] ALBUTEROL NEB's [Proventil 0.083% 2.5 mg IH TID PRN #1 box 04/17/18 Unknown Rx NEBS] predniSONE [Deltasone] 20 mg PO DAILY #20 tablet 04/17/18 Unknown Rx Dicyclomine [Bentyl] 10 mg PO QID #15 capsule 06/18/18 Unknown Rx Diphenoxylate/Atropine [Lomotil] 1 tab PO Q4H PRN #10 tablet 06/18/18 Unknown Rx Ondansetron [Zofran Odt] 4 mg PO Q8HR PRN #10 tab.rapdis 06/18/18 Unknown Rx Allergies Allergy/AdvReac Type Severity Reaction Status Date / Time doxycycline Allergy Rash Verified 06/18/18 09:47 ketorolac tromethamine Allergy Anaphylaxis Verified 06/18/18 09:47 [From Toradol] Latex, Natural Rubber Allergy Angioedema Verified 06/18/18 09:47 morphine Allergy Shortness Verified 06/18/18 09:47 of Breath azithromycin [From Zithromax] AdvReac Anaphylaxis Verified 06/18/18 09:47 NSAIDS (Non-Steroidal AdvReac Anaphylaxis Verified 06/18/18 09:47 Anti-Inflamma Penicillins AdvReac Hives Verified 06/18/18 09:47 ED Review of Systems ROS: Stated complaint: STOMACH PAIN Other details as noted in HPI Comment: All other systems reviewed and negative ED Past Medical Hx - Past Medical History Hx Hypertension: No Hx Heart Attack/AMI: No Hx Congestive Heart Failure: No Hx Diabetes: No Hx Deep Vein Thrombosis: No Hx Pulmonary Embolism: No Hx GERD: Yes Hx Liver Disease: No Hx Renal Disease: No Hx Sickle Cell Disease: No Hx Arthritis: No Hx Seizures: No Hx Kidney Stones: No Hx Asthma: Yes Hx COPD: No Hx Tuberculosis: No Hx Dementia: No Hx HIV: No Additional medical history: sinus problems --chronic sinusitis / ABD HERNIA,. Prior Intubations. Obesity. - Surgical History Hx Coronary Stent: No Hx Open Heart Surgery: No Hx Pacemaker: No Hx Internal Defibrillator: No Hx Cholecystectomy: No Hx Appendectomy: No Hx Breast Surgery: No Additional Surgical History: x4, umbilical hernia repair, sinus surgeries, D&C. thyroid removal///tubiligation - Social History Smoking Status: Never Smoker Substance Use Type: None - Medications Home Medications: Home Medications Medication Instructions Recorded Confirmed Last Taken Type Cetirizine HCl [Zyrtec] 10 mg PO DAILY 03/27/18 03/27/18 Unknown History Fluticasone/Salmeterol [Advair 1 each PO BID 03/27/18 03/27/18 Unknown History 500-50 Diskus] ALBUTEROL Inhaler (OR & NICU) 2 puff IH QID PRN #1 inhalation 03/28/18 Unknown Rx [ProAir HFA Inhaler] ALBUTEROL NEB's [Proventil 0.083% 2.5 mg IH TID PRN 30 Days nebu 03/28/18 Unknown Rx NEBS] Azithromycin [Zithromax Z-MICHELLE] 0 mg PO DAILY #1 tab 03/28/18 Unknown Rx Fluticasone [Flonase] 1 spray NS DAILY #1 bottle 03/28/18 Unknown Rx Prednisone [predniSONE 10 mg 10 mg PO .TAPER #1 tab.ds.pk 03/28/18 Unknown Rx (6-Day Pack, 21 Tabs)] Prednisone [predniSONE 10 mg 10 mg PO .TAPER #1 tab.ds.pk 04/16/18 Unknown Rx (6-Day Pack, 21 Tabs)] ALBUTEROL NEB's [Proventil 0.083% 2.5 mg IH TID PRN #1 box 04/17/18 Unknown Rx NEBS] predniSONE [Deltasone] 20 mg PO DAILY #20 tablet 04/17/18 Unknown Rx Dicyclomine [Bentyl] 10 mg PO QID #15 capsule 06/18/18 Unknown Rx Diphenoxylate/Atropine [Lomotil] 1 tab PO Q4H PRN #10 tablet 06/18/18 Unknown Rx Ondansetron [Zofran Odt] 4 mg PO Q8HR PRN #10 tab.rapdis 06/18/18 Unknown Rx ED Physical Exam - General Limitations: No Limitations General appearance: alert, in no apparent distress - Head Head exam: Present: atraumatic, normocephalic - Eye Eye exam: Present: normal appearance - ENT ENT exam: Present: mucous membranes moist - Neck Neck exam: Present: normal inspection - Respiratory Respiratory exam: Present: normal lung sounds bilaterally. Absent: respiratory distress, wheezes, rales, rhonchi - Cardiovascular Cardiovascular Exam: Present: regular rate, normal rhythm. Absent: systolic murmur, diastolic murmur, rubs, gallop - GI/Abdominal GI/Abdominal exam: Present: soft, normal bowel sounds. Absent: distended, tenderness, guarding, rebound - Extremities Exam Extremities exam: Present: normal inspection - Back Exam Back exam: Present: normal inspection - Neurological Exam Neurological exam: Present: alert, oriented X3 - Psychiatric Psychiatric exam: Present: normal affect, normal mood - Skin Skin exam: Present: warm, dry, intact, normal color. Absent: rash ED Course Vital Signs 06/18/18 09:47 Temperature 98.7 F Pulse Rate 76 Respiratory 18 Rate Blood Pressure 127/61 O2 Sat by Pulse 97 Oximetry ED Medical Decision Making - Medical Decision Making Patient's laboratory studies from her previous visit last night were within normal limits. Patient's does not have any localized pain. Patient most likely has a viral gastroenteritis be discharged home. Critical care attestation.: If time is entered above; I have spent that time in minutes in the direct care of this critically ill patient, excluding procedure time. ED Disposition Clinical Impression: Viral gastroenteritis Disposition: DC-01 TO HOME OR SELFCARE Is pt being admited?: No Does the pt Need Aspirin: No Condition: Stable Instructions: Abdominal Pain (ED) Referrals: PRIMARY CAREMD [Primary Care Provider] - 3-5 Days Time of Disposition: 10:55
== END 2018-06-18 11:39 | disposition home or self-care (01) ==
LOC: ED 09:40
DX: A08.4 Viral intestinal infection, unspecified (principal); K21.9 Gastro-esophageal reflux disease without esophagitis; J45.909 Unspecified asthma, uncomplicated; Z98.51 Tubal ligation status; Z88.0 Allergy status to penicillin; Z88.8 Allergy status to other drugs, medicaments and biological substances; Z88.6 Allergy status to analgesic agent; Z88.1 Allergy status to other antibiotic agents; Z91.040 Latex allergy status
CPT/HCPCS: 96372; 99282; J0500

== ENCOUNTER 2018-06-29 19:56 | Emergency (ER) | payer MEDICARE ==
[2018-06-29] MEDS ORDERED: DUONEB *Not for PRN Use IH ONE (21:26)
[2018-06-29] MEDS ORDERED: DECADRON IM ONE (21:26)
--- NOTE | 2018-06-29 21:45 | Emergency Department Report ---
ED Asthma HPI - General Chief Complaint: Adult Asthma Stated Complaint: CRONIC ASTHMA Time Seen by Provider: 06/29/18 21:15 Source: patient Mode of arrival: Ambulatory Limitations: No Limitations - History of Present Illness Initial Comments: 47-year-old known asthmatic comes in reporting that she is having an asthma flareup. Patient reports she is living in an apartment at least water. access manager didn't fix the problem now she's moving. She complains of shortness of breath and tightness. She reports she's been using the neb machine the still having tightness. She denies any fever chills or nausea no vomiting. -: days(s) (2) Asthma History: history of prior ED visit Severity: severe Context: allergen exposure Associated Symptoms: productive cough - Related Data Current Asthma Therapy: inhaled bronchodilator Home Medications Medication Instructions Recorded Confirmed Last Taken Cetirizine HCl [Zyrtec] 10 mg PO DAILY 03/27/18 03/27/18 Unknown Fluticasone/Salmeterol [Advair 1 each PO BID 03/27/18 03/27/18 Unknown 500-50 Diskus] Previous Rx's Medication Instructions Recorded Last Taken Type ALBUTEROL Inhaler (OR & NICU) 2 puff IH QID PRN #1 inhalation 03/28/18 Unknown Rx [ProAir HFA Inhaler] ALBUTEROL NEB's [Proventil 0.083% 2.5 mg IH TID PRN 30 Days nebu 03/28/18 Unknown Rx NEBS] Azithromycin [Zithromax Z-MICHELLE] 0 mg PO DAILY #1 tab 03/28/18 Unknown Rx Fluticasone [Flonase] 1 spray NS DAILY #1 bottle 03/28/18 Unknown Rx Prednisone [predniSONE 10 mg 10 mg PO .TAPER #1 tab.ds.pk 03/28/18 Unknown Rx (6-Day Pack, 21 Tabs)] predniSONE [Deltasone] 20 mg PO DAILY #20 tablet 04/17/18 Unknown Rx Dicyclomine [Bentyl] 10 mg PO QID #15 capsule 06/18/18 Unknown Rx Diphenoxylate/Atropine [Lomotil] 1 tab PO Q4H PRN #10 tablet 06/18/18 Unknown Rx Ondansetron [Zofran Odt] 4 mg PO Q8HR PRN #10 tab.rapdis 06/18/18 Unknown Rx ALBUTEROL NEB's [Proventil 0.083% 2.5 mg IH TID PRN #1 box 06/30/18 Unknown Rx NEBS] Prednisone [predniSONE 10 mg 10 mg PO .TAPER #1 tab.ds.pk 06/30/18 Unknown Rx (6-Day Pack, 21 Tabs)] medroxyPROGESTERone ACETATE 10 mg PO DAILY #10 tablet 07/04/18 Unknown Rx [Provera] Allergies Allergy/AdvReac Type Severity Reaction Status Date / Time doxycycline Allergy Rash Verified 07/04/18 11:09 ketorolac tromethamine Allergy Anaphylaxis Verified 07/04/18 11:09 [From Toradol] Latex, Natural Rubber Allergy Angioedema Verified 07/04/18 11:09 morphine Allergy Shortness Verified 07/04/18 11:09 of Breath azithromycin [From Zithromax] AdvReac Anaphylaxis Verified 07/04/18 11:09 NSAIDS (Non-Steroidal AdvReac Anaphylaxis Verified 07/04/18 11:09 Anti-Inflamma Penicillins AdvReac Hives Verified 07/04/18 11:09 ED Review of Systems ROS: Stated complaint: CRONIC ASTHMA Other details as noted in HPI Comment: All other systems reviewed and negative Constitutional: denies: chills, fever Eyes: denies: eye pain, eye discharge, vision change ENT: denies: ear pain, throat pain Respiratory: shortness of breath, SOB with exertion Cardiovascular: denies: chest pain, palpitations Endocrine: no symptoms reported ED Past Medical Hx - Past Medical History Hx Hypertension: No Hx Heart Attack/AMI: No Hx Congestive Heart Failure: No Hx Diabetes: No Hx Deep Vein Thrombosis: No Hx Pulmonary Embolism: No Hx GERD: Yes Hx Liver Disease: No Hx Renal Disease: No Hx Sickle Cell Disease: No Hx Arthritis: No Hx Seizures: No Hx Kidney Stones: No Hx Asthma: Yes Hx COPD: No Hx Tuberculosis: No Hx Dementia: No Hx HIV: No Additional medical history: sinus problems --chronic sinusitis / ABD HERNIA,. Prior Intubations. Obesity. - Surgical History Hx Coronary Stent: No Hx Open Heart Surgery: No Hx Pacemaker: No Hx Internal Defibrillator: No Hx Cholecystectomy: No Hx Appendectomy: No Hx Breast Surgery: No Additional Surgical History: x4, umbilical hernia repair, sinus surgeries, D&C. thyroid removal///tubiligation - Social History Smoking Status: Never Smoker Substance Use Type: None - Medications Home Medications: Home Medications Medication Instructions Recorded Confirmed Last Taken Type Cetirizine HCl [Zyrtec] 10 mg PO DAILY 03/27/18 03/27/18 Unknown History Fluticasone/Salmeterol [Advair 1 each PO BID 03/27/18 03/27/18 Unknown History 500-50 Diskus] ALBUTEROL Inhaler (OR & NICU) 2 puff IH QID PRN #1 inhalation 03/28/18 Unknown Rx [ProAir HFA Inhaler] ALBUTEROL NEB's [Proventil 0.083% 2.5 mg IH TID PRN 30 Days nebu 03/28/18 Unknown Rx NEBS] Azithromycin [Zithromax Z-MICHELEL] 0 mg PO DAILY #1 tab 03/28/18 Unknown Rx Fluticasone [Flonase] 1 spray NS DAILY #1 bottle 03/28/18 Unknown Rx Prednisone [predniSONE 10 mg 10 mg PO .TAPER #1 tab.ds.pk 03/28/18 Unknown Rx (6-Day Pack, 21 Tabs)] predniSONE [Deltasone] 20 mg PO DAILY #20 tablet 04/17/18 Unknown Rx Dicyclomine [Bentyl] 10 mg PO QID #15 capsule 06/18/18 Unknown Rx Diphenoxylate/Atropine [Lomotil] 1 tab PO Q4H PRN #10 tablet 06/18/18 Unknown Rx Ondansetron [Zofran Odt] 4 mg PO Q8HR PRN #10 tab.rapdis 06/18/18 Unknown Rx ALBUTEROL NEB's [Proventil 0.083% 2.5 mg IH TID PRN #1 box 06/30/18 Unknown Rx NEBS] Prednisone [predniSONE 10 mg 10 mg PO .TAPER #1 tab.ds.pk 06/30/18 Unknown Rx (6-Day Pack, 21 Tabs)] medroxyPROGESTERone ACETATE 10 mg PO DAILY #10 tablet 07/04/18 Unknown Rx [Provera] ED Physical Exam - General Limitations: No Limitations General appearance: alert, in no apparent distress - Head Head exam: Present: atraumatic, normocephalic - Eye Eye exam: Present: EOMI - ENT ENT exam: Present: mucous membranes moist - Respiratory Respiratory exam: Present: normal lung sounds bilaterally. Absent: respiratory distress - Cardiovascular Cardiovascular Exam: Present: regular rate, normal rhythm. Absent: systolic murmur, diastolic murmur, rubs, gallop - Back Exam Back exam: Present: normal inspection - Neurological Exam Neurological exam: Present: alert, oriented X3 - Psychiatric Psychiatric exam: Present: normal affect, normal mood - Skin Skin exam: Present: warm, dry, intact, normal color. Absent: rash ED Course Vital Signs 06/29/18 06/29/18 06/30/18 20:04 22:31 00:47 Temperature 98.2 F Pulse Rate 78 71 Pulse Rate [ 76 Posterior Bilateral Throughout] Respiratory 18 14 Rate Respiratory 20 Rate [Posterior Bilateral Throughout] Blood Pressure 119/56 Blood Pressure 111/53 [Left] O2 Sat by Pulse 97 97 Oximetry ED Medical Decision Making - Radiology Data Radiology results: report reviewed FINAL REPORT EXAM: XR CHEST ROUTINE 2V HISTORY: difficulty breathing cough back pain TECHNIQUE: PA and lateral views of the chest Comparison: Chest x-ray dated April 23, 2018 FINDINGS: There is no evidence of focal infiltrate, pneumothorax or pleural fluid collection. The cardiomediastinal silhouette is normal in appearance. The bony structures are unremarkable. IMPRESSION: 1. No evidence of an acute pulmonary process. If further imaging is required, CT chest may be helpful. Transcribed By: ED Dictated By: JUAN ELLSWORTH MD Electronically Authenticated By: JUAN ELLSWORTH MD Signed Date/Time: 06/29/182235 DD/ 35 TD/TT: 06/29/182235 Critical care attestation.: If time is entered above; I have spent that time in minutes in the direct care of this critically ill patient, excluding procedure time. ED Disposition Clinical Impression: Shortness of breath, History of asthma Disposition: DC-01 TO HOME OR SELFCARE Is pt being admited?: No Does the pt Need Aspirin: No Condition: Stable Instructions: Asthma (ED), Reactive Airways Disease (ED), Bronchospasm (ED) Additional Instructions: Please take medication that has been prescribed. It is very important to follow -up with her review nurse as well as her primary care provider. Prescriptions: ALBUTEROL NEB's [Proventil 0.083% NEBS] 2.5 mg IH TID PRN #1 box PRN Reason: Wheezing Prednisone [predniSONE 10 mg (6-Day Pack, 21 Tabs)] 10 mg PO .TAPER #1 tab.ds.pk Referrals: PRIMARY CARE,MD [Primary Care Provider] - 3-5 Days PARKER BROCK MD [Staff Physician] - 3-5 Days Your,Provider [Other] - 3-5 Days Forms: Work/School Release Form(ED)
--- NOTE | 2018-06-29 22:37 | XRay Report ---
FINAL REPORT EXAM: XR CHEST ROUTINE 2V HISTORY: difficulty breathing cough back pain TECHNIQUE: PA and lateral views of the chest Comparison: Chest x-ray dated April 23, 2018 FINDINGS: There is no evidence of focal infiltrate, pneumothorax or pleural fluid collection. The cardiomediastinal silhouette is normal in appearance. The bony structures are unremarkable. IMPRESSION: 1. No evidence of an acute pulmonary process. If further imaging is required, CT chest may be helpful.
[2018-06-29] MEDS ORDERED: PROVENTIL IH ONE (23:09)
[2018-06-30 00:47] VITALS: BP 111/53
== END 2018-06-30 00:47 | disposition home or self-care (01) ==
LOC: ED 19:56
DX: J45.909 Unspecified asthma, uncomplicated (principal); K21.9 Gastro-esophageal reflux disease without esophagitis; Z98.51 Tubal ligation status; Z88.1 Allergy status to other antibiotic agents; Z91.040 Latex allergy status; Z88.0 Allergy status to penicillin; Z88.6 Allergy status to analgesic agent; Z88.5 Allergy status to narcotic agent
CPT/HCPCS: 71046; 94640; 96372; 99284; J1100

== ENCOUNTER 2018-07-04 10:58 | Emergency (ER) | payer MEDICARE ==
[2018-07-04 11:08] VITALS: BP 133/78
[2018-07-04 11:45] LABS: Hematocrit 40.1 % (30.3-42.9)
--- NOTE | 2018-07-04 12:40 | Emergency Department Report ---
ED Female HPI - General Chief complaint: Vaginal Bleeding Stated complaint: HEAVY BLEEDING Source: patient Mode of arrival: Ambulatory Limitations: No Limitations - History of Present Illness Initial comments: System 47-year-old -Sammar[place] female who presents with abnormal heavy bleeding during menses for 4 days. Patient states when. Started she felt a heavy flashlight [place] and it never shut off. She is changing tape as every hour. Patient reports bleeding and is worse at night. She is waking up in a puddle of blood. She also complains of pressure to the lower abdominal area and admits to past small clots. Patient states she called [facility] home [facility] and was told to follow-up here because they did not have available walk-in appointments today. Patient denies frequency, urgency, dysuria, lightheadedness, and chest pain. MD Complaint: vaginal bleeding Onset/Timin -: days(s) Location: other (lower abdominal cramping) Radiation: non-radiating Severity: mild Severity scale (0 -10): 3 Quality: cramping Consistency: intermittent Improves with: none Worsens with: menstrual period Are you Now?: No Last Menstrual Period: 06/30/18 EDC: 04/06/19 Associated Symptoms: vaginal bleeding, abdominal pain (lower abdominal cramping) - Related Data Sexually active: Yes Home Medications Medication Instructions Recorded Confirmed Last Taken Cetirizine HCl [Zyrtec] 10 mg PO DAILY 03/27/18 03/27/18 Unknown Fluticasone/Salmeterol [Advair 1 each PO BID 03/27/18 03/27/18 Unknown 500-50 Diskus] Previous Rx's Medication Instructions Recorded Last Taken Type ALBUTEROL Inhaler (OR & NICU) 2 puff IH QID PRN #1 inhalation 03/28/18 Unknown Rx [ProAir HFA Inhaler] ALBUTEROL NEB's [Proventil 0.083% 2.5 mg IH TID PRN 30 Days nebu 03/28/18 Unknown Rx NEBS] Azithromycin [Zithromax Z-MICHELLE] 0 mg PO DAILY #1 tab 03/28/18 Unknown Rx Fluticasone [Flonase] 1 spray NS DAILY #1 bottle 03/28/18 Unknown Rx Prednisone [predniSONE 10 mg 10 mg PO .TAPER #1 tab.ds.pk 03/28/18 Unknown Rx (6-Day Pack, 21 Tabs)] predniSONE [Deltasone] 20 mg PO DAILY #20 tablet 04/17/18 Unknown Rx Dicyclomine [Bentyl] 10 mg PO QID #15 capsule 06/18/18 Unknown Rx Diphenoxylate/Atropine [Lomotil] 1 tab PO Q4H PRN #10 tablet 06/18/18 Unknown Rx Ondansetron [Zofran Odt] 4 mg PO Q8HR PRN #10 tab.rapdis 06/18/18 Unknown Rx ALBUTEROL NEB's [Proventil 0.083% 2.5 mg IH TID PRN #1 box 06/30/18 Unknown Rx NEBS] Prednisone [predniSONE 10 mg 10 mg PO .TAPER #1 tab.ds.pk 06/30/18 Unknown Rx (6-Day Pack, 21 Tabs)] Allergies Allergy/AdvReac Type Severity Reaction Status Date / Time doxycycline Allergy Rash Verified 07/04/18 11:09 ketorolac tromethamine Allergy Anaphylaxis Verified 07/04/18 11:09 [From Toradol] Latex, Natural Rubber Allergy Angioedema Verified 07/04/18 11:09 morphine Allergy Shortness Verified 07/04/18 11:09 of Breath azithromycin [From Zithromax] AdvReac Anaphylaxis Verified 07/04/18 11:09 NSAIDS (Non-Steroidal AdvReac Anaphylaxis Verified 07/04/18 11:09 Anti-Inflamma Penicillins AdvReac Hives Verified 07/04/18 11:09 ED Review of Systems ROS: Stated complaint: HEAVY BLEEDING Other details as noted in HPI Constitutional: denies: chills, fever Respiratory: denies: cough, shortness of breath, wheezing Cardiovascular: denies: chest pain, palpitations Gastrointestinal: denies: abdominal pain, nausea, diarrhea Genitourinary: abnormal menses (menorrhagia). denies: urgency, dysuria, discharge Skin: denies: rash, lesions Neurological: denies: headache, weakness, paresthesias Psychiatric: denies: anxiety, depression ED Past Medical Hx - Past Medical History Hx Hypertension: No Hx Heart Attack/AMI: No Hx Congestive Heart Failure: No Hx Diabetes: No Hx Deep Vein Thrombosis: No Hx Pulmonary Embolism: No Hx GERD: Yes Hx Liver Disease: No Hx Renal Disease: No Hx Sickle Cell Disease: No Hx Arthritis: No Hx Seizures: No Hx Kidney Stones: No Hx Asthma: Yes Hx COPD: No Hx Tuberculosis: No Hx Dementia: No Hx HIV: No Additional medical history: sinus problems --chronic sinusitis / ABD HERNIA,. Prior Intubations. Obesity. - Surgical History Past Surgical History?: Yes Hx Coronary Stent: No Hx Open Heart Surgery: No Hx Pacemaker: No Hx Internal Defibrillator: No Hx Cholecystectomy: No Hx Appendectomy: No Hx Breast Surgery: No Additional Surgical History: x4, umbilical hernia repair, sinus surgeries, D&C. thyroid removal///tubiligation - Social History Smoking Status: Never Smoker Substance Use Type: None - Medications Home Medications: Home Medications Medication Instructions Recorded Confirmed Last Taken Type Cetirizine HCl [Zyrtec] 10 mg PO DAILY 03/27/18 03/27/18 Unknown History Fluticasone/Salmeterol [Advair 1 each PO BID 03/27/18 03/27/18 Unknown History 500-50 Diskus] ALBUTEROL Inhaler (OR & NICU) 2 puff IH QID PRN #1 inhalation 03/28/18 Unknown Rx [ProAir HFA Inhaler] ALBUTEROL NEB's [Proventil 0.083% 2.5 mg IH TID PRN 30 Days nebu 03/28/18 Unknown Rx NEBS] Azithromycin [Zithromax Z-MICHELLE] 0 mg PO DAILY #1 tab 03/28/18 Unknown Rx Fluticasone [Flonase] 1 spray NS DAILY #1 bottle 03/28/18 Unknown Rx Prednisone [predniSONE 10 mg 10 mg PO .TAPER #1 tab.ds.pk 03/28/18 Unknown Rx (6-Day Pack, 21 Tabs)] predniSONE [Deltasone] 20 mg PO DAILY #20 tablet 04/17/18 Unknown Rx Dicyclomine [Bentyl] 10 mg PO QID #15 capsule 06/18/18 Unknown Rx Diphenoxylate/Atropine [Lomotil] 1 tab PO Q4H PRN #10 tablet 06/18/18 Unknown Rx Ondansetron [Zofran Odt] 4 mg PO Q8HR PRN #10 tab.rapdis 06/18/18 Unknown Rx ALBUTEROL NEB's [Proventil 0.083% 2.5 mg IH TID PRN #1 box 06/30/18 Unknown Rx NEBS] Prednisone [predniSONE 10 mg 10 mg PO .TAPER #1 tab.ds.pk 06/30/18 Unknown Rx (6-Day Pack, 21 Tabs)] ED Physical Exam - General Limitations: No Limitations General appearance: alert, in no apparent distress, obese - Respiratory Respiratory exam: Present: normal lung sounds bilaterally. Absent: respiratory distress - Cardiovascular Cardiovascular Exam: Present: regular rate, normal rhythm. Absent: systolic murmur, diastolic murmur, rubs, gallop - GI/Abdominal GI/Abdominal exam: Present: soft, tenderness (suprapubic tenderness), normal bowel sounds. Absent: distended, guarding, rebound, rigid, organomegaly, mass - Neurological Exam Neurological exam: Present: alert, oriented X3 - Psychiatric Psychiatric exam: Present: normal affect, normal mood - Skin Skin exam: Present: warm, dry, intact, normal color. Absent: rash ED Course Vital Signs 07/04/18 11:03 Temperature 98.8 F Pulse Rate 84 Respiratory 16 Rate Blood Pressure 133/78 O2 Sat by Pulse 96 Oximetry ED Medical Decision Making - Lab Data Result diagrams: 07/04/18 11:32 Lab Results 07/04/18 07/04/18 Range/Units 11:32 13:00 Hgb 13.0 (10.1-14.3) gm/dl Hct 40.1 (30.3-42.9) % Urine HCG, Qual Negative (Negative) - Radiology Data Radiology results: report reviewed, image reviewed ULTRASOUND PELVIC COMPLETE ULTRASOUND TRANSVAGINAL HISTORY: Suprapubic tenderness, menorrhagia. COMPARISON: None. TECHNIQUE: Transabdominal and transvaginal ultrasound with color doppler interrogation. FINDINGS: Uterus: The uterus is retroflexed. The uterus measures 10.6 x 5.6 x 6.5 cm. A solitary intramural fibroid is noted in the anterior wall measuring 1.2 x 1.1 cm. There are 2 or 3 nabothian cysts in the cervix measuring up to 1.2 cm. Endometrium: 14 mm. Right ovary: 4.2 x 3.2 x 3.0 cm. There are 2 cysts in the right ovary measuring 2.6 cm and 1.5 cm. Left ovary: 2.8 x 1.9 x 3.4 cm. No focal abnormality. No pelvic fluid or mass is identified. IMPRESSION: Small uterine fibroid as described. Nabothian cysts in the cervix. Right ovarian cysts, simple. - Medical Decision Making This is a 47 year-old -[place] female who presents with menorrhagia for 4 days. Patient was examined by me. Vitals are stable and in no acute distress. Obtained labs. H&H normal, negative tests. Transvaginal and pelvic Ultrasound dictated by radiologist of report reviewed by myself. Small uterine fibroid as described. Nabothian cysts in the cervix. Right ovarian cysts, simple. Results reviewed with patient. Start Provera 10 mg by mouth daily for 7-10 days. Patient will need to follow-up with [facility] for management of menorrhagia and fibroid. Discharged home in stable condition. Discussed prevention options. F/U with PCP or Health Department. Critical care attestation.: If time is entered above; I have spent that time in minutes in the direct care of this critically ill patient, excluding procedure time. ED Disposition Clinical Impression: Ovarian cyst, left Menorrhagia Qualifiers: Menorrahagia type: with onset of menstrual periods Qualified Code(s): N92.2 - Excessive menstruation at puberty Uterine fibroid Qualifiers: Uterine leiomyoma location: intramural Qualified Code(s): D25.1 - Intramural leiomyoma of uterus Disposition: DC- TO HOME OR SELFCARE Is pt being admited?: No Does the pt Need Aspirin: No Condition: Stable Instructions: Menorrhagia (ED), Uterine Fibroids (ED) Additional Instructions: Follow-up with [facility] for further evaluation and management of care. Referrals: EDIS JOSE MD [Staff Physician] - 3-5 Days [facility] [Provider Group] - 3-5 Days [facility] [Provider Group] - 3-5 Days Forms: Work/School Release Form(ED) Time of Disposition: 15:36 Print Language: LUXEMBOURGER
[2018-07-04 13:51] LABS: HCG Qualitative,Urine Negative (Negative)
--- NOTE | 2018-07-04 14:49 | Ultrasound Report ---
ULTRASOUND PELVIC COMPLETE ULTRASOUND TRANSVAGINAL HISTORY: Suprapubic tenderness, menorrhagia. COMPARISON: None. TECHNIQUE: Transabdominal and transvaginal ultrasound with color doppler interrogation. FINDINGS: Uterus: The uterus is retroflexed. The uterus measures 10.6 x 5.6 x 6.5 cm. A solitary intramural fibroid is noted in the anterior wall measuring 1.2 x 1.1 cm. There are 2 or 3 nabothian cysts in the cervix measuring up to 1.2 cm. Endometrium: 14 mm. Right ovary: 4.2 x 3.2 x 3.0 cm. There are 2 cysts in the right ovary measuring 2.6 cm and 1.5 cm. Left ovary: 2.8 x 1.9 x 3.4 cm. No focal abnormality. No pelvic fluid or mass is identified. IMPRESSION: Small uterine fibroid as described. Nabothian cysts in the cervix. Right ovarian cysts, simple.
== END 2018-07-04 15:43 | disposition home or self-care (01) ==
LOC: ED 10:58
DX: D25.9 Leiomyoma of uterus, unspecified (principal); N92.2 Excessive menstruation at puberty; N83.202 Unspecified ovarian cyst, left side; K21.9 Gastro-esophageal reflux disease without esophagitis; J45.909 Unspecified asthma, uncomplicated; Z98.51 Tubal ligation status; Z88.0 Allergy status to penicillin; Z88.8 Allergy status to other drugs, medicaments and biological substances; Z88.6 Allergy status to analgesic agent; Z88.1 Allergy status to other antibiotic agents; Z91.040 Latex allergy status
CPT/HCPCS: 36415; 76830; 76856; 81025; 85014; 85018; 99284

== ENCOUNTER 2018-10-14 12:32 | Emergency (ER) | payer MEDICARE ==
[2018-10-14 13:05] VITALS: BP 127/54
--- NOTE | 2018-10-14 13:29 | Emergency Department Report ---
ED Asthma HPI - General Chief Complaint: Adult Asthma Stated Complaint: CHRONIC PAIN Source: patient Mode of arrival: Ambulatory Limitations: No Limitations - History of Present Illness Initial Comments: This is a 48-year-old female presents with shortness of breath for 24 hours. Past medical history of asthma and GERD. Patient states she is use using nebulized treatments 3 times a day when no improvement in symptoms. She gave her last treatment about 1-1/2 hours prior to arrival. She reports a history of intubation and want to prevent this from happening. Patient states her chest with rattling prior to arrival. She denies cough, fever, chest pain, head congestion. MD Complaint: shortness of breath Onset/Timin -: hour(s) Asthma History: childhood onset Severity: moderate Context: other (environmental weather) Associated Symptoms: none - Related Data Current Asthma Therapy: inhaled bronchodilator Home Medications Medication Instructions Recorded Confirmed Last Taken Cetirizine HCl [Zyrtec] 10 mg PO DAILY 03/27/18 08/31/18 08/30/18 Fluticasone/Salmeterol [Advair 1 each PO BID 03/27/18 08/31/18 08/30/18 500-50 Diskus] Levothyroxine 1 tab PO DAILY 08/31/18 08/31/18 08/30/18 Ranitidine HCl 75 mg PO DAILY 08/31/18 08/31/18 08/30/18 Previous Rx's Medication Instructions Recorded Last Taken Type ALBUTEROL Inhaler (OR & NICU) 2 puff IH QID PRN #1 inhalation 03/28/18 08/30/18 Rx [ProAir HFA Inhaler] ALBUTEROL NEB's [Proventil 0.083% 2.5 mg IH TID PRN 30 Days nebu 03/28/18 08/31/18 Rx NEBS] Prednisone [predniSONE 10 mg 10 mg PO .TAPER #1 tab.ds.pk 06/30/18 08/30/18 Rx (6-Day Pack, 21 Tabs)] medroxyPROGESTERone ACETATE 10 mg PO DAILY #10 tablet 07/04/18 08/30/18 Rx [Provera] Acetaminophen [Tylenol Arthritis] 650 mg PO Q6HR PRN #30 tablet.er 08/31/18 Unknown Rx Albuterol Sulfate [Proair 90 mcg IH Q4HR PRN #2 aer.pow.ba 08/31/18 Unknown Rx Respiclick] Benzonatate [Tessalon Perles] 100 mg PO Q8HR PRN #30 capsule 08/31/18 Unknown Rx Ipratropium [place] [Atrovent Hfa] 12.9 gm IH Q4HR #2 hfa.aer.ad 08/31/18 Unknown Rx predniSONE [Deltasone] 50 mg PO QDAY #5 tab 09/06/18 Unknown Rx ALBUTEROL Inhaler (OR & NICU) 2 puff IH QID PRN #1 inhalation 10/04/18 Unknown Rx [Proair] Albuterol Sulfate [Albuterol 0.63% 0.63 mg IH TID PRN #90 ml 10/04/18 Unknown Rx NEBS] Prednisone [predniSONE 10 mg 10 mg PO .TAPER #1 tab.ds.pk 10/04/18 Unknown Rx (6-Day Pack, 21 Tabs)] predniSONE [Deltasone] 40 mg PO QDAY #8 tab 10/14/18 Unknown Rx Allergies Allergy/AdvReac Type Severity Reaction Status Date / Time doxycycline Allergy Rash Verified 07/04/18 11:09 ketorolac tromethamine Allergy Anaphylaxis Verified 07/04/18 11:09 [From Toradol] Latex, Natural Rubber Allergy Angioedema Verified 07/04/18 11:09 morphine Allergy Shortness Verified 07/04/18 11:09 of Breath azithromycin [From Zithromax] AdvReac Anaphylaxis Verified 07/04/18 11:09 NSAIDS (Non-Steroidal AdvReac Anaphylaxis Verified 07/04/18 11:09 Anti-Inflamma Penicillins AdvReac Hives Verified 07/04/18 11:09 ED Review of Systems ROS: Stated complaint: CHRONIC PAIN Other details as noted in HPI Constitutional: denies: chills, fever ENT: denies: ear pain, throat pain Respiratory: shortness of breath, SOB with exertion. denies: cough, wheezing Cardiovascular: denies: chest pain, palpitations Gastrointestinal: denies: abdominal pain, nausea, diarrhea Neurological: denies: headache, weakness, paresthesias Psychiatric: denies: anxiety, depression ED Past Medical Hx - Past Medical History Previous Medical History?: Yes Hx Hypertension: No Hx Heart Attack/AMI: No Hx Congestive Heart Failure: No Hx Diabetes: No Hx Deep Vein Thrombosis: No Hx Pulmonary Embolism: No Hx GERD: Yes Hx Liver Disease: No Hx Renal Disease: No Hx Sickle Cell Disease: No Hx Arthritis: No Hx Seizures: No Hx Kidney Stones: No Hx Asthma: Yes Hx COPD: No Hx Tuberculosis: No Hx Dementia: No Hx HIV: No Additional medical history: sinus problems --chronic sinusitis / ABD HERNIA,. Prior Intubations. Obesity. - Surgical History Hx Coronary Stent: No Hx Open Heart Surgery: No Hx Pacemaker: No Hx Internal Defibrillator: No Hx Cholecystectomy: No Hx Appendectomy: No Hx Breast Surgery: No Additional Surgical History: x4, umbilical hernia repair, sinus surgeries, D&C. thyroid removal///tubiligation - Social History Smoking Status: Never Smoker Substance Use Type: None - Medications Home Medications: Home Medications Medication Instructions Recorded Confirmed Last Taken Type Cetirizine HCl [Zyrtec] 10 mg PO DAILY 03/27/18 08/31/18 08/30/18 History Fluticasone/Salmeterol [Advair 1 each PO BID 03/27/18 08/31/18 08/30/18 History 500-50 Diskus] ALBUTEROL Inhaler (OR & NICU) 2 puff IH QID PRN #1 inhalation 03/28/18 08/31/18 08/30/18 Rx [ProAir HFA Inhaler] ALBUTEROL NEB's [Proventil 0.083% 2.5 mg IH TID PRN 30 Days nebu 03/28/18 08/31/18 08/31/18 Rx NEBS] Prednisone [predniSONE 10 mg 10 mg PO .TAPER #1 tab.ds.pk 06/30/18 08/31/18 08/30/18 Rx (6-Day Pack, 21 Tabs)] medroxyPROGESTERone ACETATE 10 mg PO DAILY #10 tablet 07/04/18 08/31/18 08/30/18 Rx [Provera] Acetaminophen [Tylenol Arthritis] 650 mg PO Q6HR PRN #30 tablet.er 08/31/18 Unknown Rx Albuterol Sulfate [Proair 90 mcg IH Q4HR PRN #2 aer.pow.ba 08/31/18 Unknown Rx Respiclick] Benzonatate [Tessalon Perles] 100 mg PO Q8HR PRN #30 capsule 08/31/18 Unknown Rx Ipratropium [place] [Atrovent Hfa] 12.9 gm IH Q4HR #2 hfa.aer.ad 08/31/18 Unknown Rx Levothyroxine 1 tab PO DAILY 08/31/18 08/31/18 08/30/18 History Ranitidine HCl 75 mg PO DAILY 08/31/18 08/31/18 08/30/18 History predniSONE [Deltasone] 50 mg PO QDAY #5 tab 09/06/18 Unknown Rx ALBUTEROL Inhaler (OR & NICU) 2 puff IH QID PRN #1 inhalation 10/04/18 Unknown Rx [Proair] Albuterol Sulfate [Albuterol 0.63% 0.63 mg IH TID PRN #90 ml 10/04/18 Unknown Rx NEBS] Prednisone [predniSONE 10 mg 10 mg PO .TAPER #1 tab.ds.pk 10/04/18 Unknown Rx (6-Day Pack, 21 Tabs)] predniSONE [Deltasone] 40 mg PO QDAY #8 tab 10/14/18 Unknown Rx ED Physical Exam - General Limitations: No Limitations General appearance: alert, in no apparent distress, obese - Respiratory Respiratory exam: Present: normal lung sounds bilaterally. Absent: respiratory distress - Cardiovascular Cardiovascular Exam: Present: regular rate, normal rhythm. Absent: systolic murmur, diastolic murmur, rubs, gallop - GI/Abdominal GI/Abdominal exam: Present: soft, normal bowel sounds - Neurological Exam Neurological exam: Present: alert, oriented X3 - Psychiatric Psychiatric exam: Present: normal affect, normal mood - Skin Skin exam: Present: warm, dry, intact, normal color. Absent: rash ED Course Vital Signs 10/14/18 13:02 Temperature 98.5 F Pulse Rate 75 Respiratory 20 Rate Blood Pressure 127/54 O2 Sat by Pulse 98 Oximetry ED Medical Decision Making - Medical Decision Making 48 y.o. female that presents with SOB on exertion for 24 hours. History of GERD and asthma. Patient examined by me and in no acute distress. Vitals stable. Increased use of nebulizer treatments. Given duoneb treatment once. Asthma exacerbation, Start prednisone 40 mg po daily x 4 days. Discharged home stable. Follow-up with primary care provider. Critical care attestation.: If time is entered above; I have spent that time in minutes in the direct care of this critically ill patient, excluding procedure time. ED Disposition Clinical Impression: Asthma Qualifiers: Asthma severity: mild Asthma persistence: intermittent Asthma complication type: uncomplicated Qualified Code(s): J45.20 - Mild intermittent asthma, uncomplicated Dyspnea Qualifiers: Dyspnea type: dyspnea on exertion Qualified Code(s): R06.09 - Other forms of dyspnea Disposition: DC-01 TO HOME OR SELFCARE Is pt being admited?: No Does the pt Need Aspirin: No Condition: Stable Instructions: Asthma (ED) Additional Instructions: It is important to use inhaler or have active albuterol inhaler and avoiding asthma triggers. Complete full course of prednisone steroids as prescribed. Follow up with Primary Care Provider in 24-72 hours. Prescriptions: predniSONE [Deltasone] 40 mg PO QDAY #8 tab Referrals: [facility] [Outside] - 3-5 Days [facility] [Outside] - 3-5 Days [facility] [Provider Group] - 3-5 Days Time of Disposition: 14:22
[2018-10-14] MEDS ORDERED: DUONEB *Not for PRN Use IH ONE (13:31)
== END 2018-10-14 15:04 | disposition home or self-care (01) ==
LOC: ED 12:32
DX: J45.20 Mild intermittent asthma, uncomplicated (principal); K21.9 Gastro-esophageal reflux disease without esophagitis; Z98.51 Tubal ligation status; Z88.8 Allergy status to other drugs, medicaments and biological substances; Z88.6 Allergy status to analgesic agent; Z88.1 Allergy status to other antibiotic agents; Z91.040 Latex allergy status
CPT/HCPCS: 94640; 99282

== ENCOUNTER 2018-10-19 11:45 | Emergency (ER) | payer MEDICARE ==
[2018-10-19 11:55] VITALS: BP 119/49
[2018-10-19] MEDS ORDERED: BENADRYL IV ONE (12:44)
[2018-10-19] MEDS ORDERED: DECADRON IV ONE (12:44)
[2018-10-19] MEDS ORDERED: NACL 0.9% 1000 ML 1,000 ML IV ONE (12:44)
[2018-10-19] MEDS ORDERED: PEPCID IV ONE (12:44)
--- NOTE | 2018-10-19 13:28 | Emergency Department Report ---
ED Allergic Reaction HPI - General Chief complaint: Allergic Reaction Stated complaint: LIP ALLERGIC REACTION Time Seen by Provider: 10/19/18 12:43 Source: patient Mode of arrival: Ambulatory Limitations: No Limitations - History of Present Illness Initial Comments: This is a 48-year-old female nontoxic, well nourished in appearance, no acute signs of distress presents to the ED with c/o of itching and upper lip swelling. Patient states she has history of allergic reaction to unknown source and gets hives and lip swelling intermittently. Patient states it is itching. Patient currently denies any rash or hives. Patient denies any drooling, hoarseness or facial swelling. Patient denies any trauma. She denies any fever, chills, nausea, vomiting, chest pain, shortness of breath, headache, stiff neck, numbness or tingling. MD Complaint: facial swelling -: This morning Exposure: unknown Symptoms: itching, lip swelling Severity: mild Treatment Prior to Arrival: none Previous Allergy History: none - Related Data Home Medications Medication Instructions Recorded Confirmed Last Taken Cetirizine HCl [Zyrtec] 10 mg PO DAILY 03/27/18 08/31/18 08/30/18 Fluticasone/Salmeterol [Advair 1 each PO BID 03/27/18 08/31/18 08/30/18 500-50 Diskus] Levothyroxine 1 tab PO DAILY 08/31/18 08/31/18 08/30/18 Ranitidine HCl 75 mg PO DAILY 08/31/18 08/31/18 08/30/18 Previous Rx's Medication Instructions Recorded Last Taken Type ALBUTEROL Inhaler (OR & NICU) 2 puff IH QID PRN #1 inhalation 03/28/18 08/30/18 Rx [ProAir HFA Inhaler] ALBUTEROL NEB's [Proventil 0.083% 2.5 mg IH TID PRN 30 Days nebu 03/28/18 08/31/18 Rx NEBS] Prednisone [predniSONE 10 mg 10 mg PO .TAPER #1 tab.ds.pk 06/30/18 08/30/18 Rx (6-Day Pack, 21 Tabs)] medroxyPROGESTERone ACETATE 10 mg PO DAILY #10 tablet 07/04/18 08/30/18 Rx [Provera] Acetaminophen [Tylenol Arthritis] 650 mg PO Q6HR PRN #30 tablet.er 08/31/18 Unknown Rx Albuterol Sulfate [Proair 90 mcg IH Q4HR PRN #2 aer.pow.ba 08/31/18 Unknown Rx Respiclick] Benzonatate [Tessalon Perles] 100 mg PO Q8HR PRN #30 capsule 08/31/18 Unknown Rx Ipratropium [place] [Atrovent Hfa] 12.9 gm IH Q4HR #2 hfa.aer.ad 08/31/18 Unknown Rx predniSONE [Deltasone] 50 mg PO QDAY #5 tab 09/06/18 Unknown Rx ALBUTEROL Inhaler (OR & NICU) 2 puff IH QID PRN #1 inhalation 10/04/18 Unknown Rx [Proair] Albuterol Sulfate [Albuterol 0.63% 0.63 mg IH TID PRN #90 ml 10/04/18 Unknown Rx NEBS] Prednisone [predniSONE 10 mg 10 mg PO .TAPER #1 tab.ds.pk 10/04/18 Unknown Rx (6-Day Pack, 21 Tabs)] predniSONE [Deltasone] 40 mg PO QDAY #8 tab 10/14/18 Unknown Rx Prednisone [predniSONE 10 mg 10 mg PO .TAPER #1 tab.ds.pk 10/19/18 Unknown Rx (6-Day Pack, 21 Tabs)] diphenhydrAMINE [Benadryl CAP] 25 mg PO Q6HR PRN #20 capsule 10/19/18 Unknown Rx Allergies Allergy/AdvReac Type Severity Reaction Status Date / Time doxycycline Allergy Rash Verified 07/04/18 11:09 ketorolac tromethamine Allergy Anaphylaxis Verified 07/04/18 11:09 [From Toradol] Latex, Natural Rubber Allergy Angioedema Verified 07/04/18 11:09 morphine Allergy Shortness Verified 07/04/18 11:09 of Breath azithromycin [From Zithromax] AdvReac Anaphylaxis Verified 07/04/18 11:09 NSAIDS (Non-Steroidal AdvReac Anaphylaxis Verified 07/04/18 11:09 Anti-Inflamma Penicillins AdvReac Hives Verified 07/04/18 11:09 ED Review of Systems ROS: Stated complaint: LIP ALLERGIC REACTION Other details as noted in HPI Constitutional: denies: chills, fever Eyes: denies: eye pain, eye discharge, vision change ENT: denies: ear pain, throat pain Respiratory: denies: cough, shortness of breath, wheezing Cardiovascular: denies: chest pain, palpitations Endocrine: no symptoms reported Gastrointestinal: denies: abdominal pain, nausea, diarrhea Genitourinary: denies: urgency, dysuria, discharge Musculoskeletal: denies: back pain, joint swelling, arthralgia Skin: denies: rash, lesions Neurological: denies: headache, weakness, paresthesias Psychiatric: denies: anxiety, depression Hematological/Lymphatic: denies: easy bleeding, easy bruising ED Past Medical Hx - Past Medical History Hx Hypertension: No Hx Heart Attack/AMI: No Hx Congestive Heart Failure: No Hx Diabetes: No Hx Deep Vein Thrombosis: No Hx Pulmonary Embolism: No Hx GERD: Yes Hx Liver Disease: No Hx Renal Disease: No Hx Sickle Cell Disease: No Hx Arthritis: No Hx Seizures: No Hx Kidney Stones: No Hx Asthma: Yes Hx COPD: No Hx Tuberculosis: No Hx Dementia: No Hx HIV: No Additional medical history: sinus problems --chronic sinusitis / ABD HERNIA,. Prior Intubations. Obesity. - Surgical History Past Surgical History?: Yes Hx Coronary Stent: No Hx Open Heart Surgery: No Hx Pacemaker: No Hx Internal Defibrillator: No Hx Cholecystectomy: No Hx Appendectomy: No Hx Breast Surgery: No Additional Surgical History: x4, umbilical hernia repair, sinus surgeries, D&C. thyroid removal///tubiligation - Social History Smoking Status: Never Smoker Substance Use Type: None - Medications Home Medications: Home Medications Medication Instructions Recorded Confirmed Last Taken Type Cetirizine HCl [Zyrtec] 10 mg PO DAILY 03/27/18 08/31/18 08/30/18 History Fluticasone/Salmeterol [Advair 1 each PO BID 03/27/18 08/31/18 08/30/18 History 500-50 Diskus] ALBUTEROL Inhaler (OR & NICU) 2 puff IH QID PRN #1 inhalation 03/28/18 08/31/18 08/30/18 Rx [ProAir HFA Inhaler] ALBUTEROL NEB's [Proventil 0.083% 2.5 mg IH TID PRN 30 Days nebu 03/28/18 08/31/18 08/31/18 Rx NEBS] Prednisone [predniSONE 10 mg 10 mg PO .TAPER #1 tab.ds.pk 06/30/18 08/31/18 08/30/18 Rx (6-Day Pack, 21 Tabs)] medroxyPROGESTERone ACETATE 10 mg PO DAILY #10 tablet 07/04/18 08/31/18 08/30/18 Rx [Provera] Acetaminophen [Tylenol Arthritis] 650 mg PO Q6HR PRN #30 tablet.er 08/31/18 Unknown Rx Albuterol Sulfate [Proair 90 mcg IH Q4HR PRN #2 aer.pow.ba 08/31/18 Unknown Rx Respiclick] Benzonatate [Tessalon Perles] 100 mg PO Q8HR PRN #30 capsule 08/31/18 Unknown R x Ipratropium [place] [Atrovent Hfa] 12.9 gm IH Q4HR #2 hfa.aer.ad 08/31/18 Unknown Rx Levothyroxine 1 tab PO DAILY 08/31/18 08/31/18 08/30/18 History Ranitidine HCl 75 mg PO DAILY 08/31/18 08/31/18 08/30/18 History predniSONE [Deltasone] 50 mg PO QDAY #5 tab 09/06/18 Unknown Rx ALBUTEROL Inhaler (OR & NICU) 2 puff IH QID PRN #1 inhalation 10/04/18 Unknown Rx [Proair] Albuterol Sulfate [Albuterol 0.63% 0.63 mg IH TID PRN #90 ml 10/04/18 Unknown Rx NEBS] Prednisone [predniSONE 10 mg 10 mg PO .TAPER #1 tab.ds.pk 10/04/18 Unknown Rx (6-Day Pack, 21 Tabs)] predniSONE [Deltasone] 40 mg PO QDAY #8 tab 10/14/18 Unknown Rx Prednisone [predniSONE 10 mg 10 mg PO .TAPER #1 tab.ds.pk 10/19/18 Unknown Rx (6-Day Pack, 21 Tabs)] diphenhydrAMINE [Benadryl CAP] 25 mg PO Q6HR PRN #20 capsule 10/19/18 Unknown Rx ED Physical Exam - General Limitations: No Limitations General appearance: alert, in no apparent distress - Head Head exam: Present: atraumatic, normocephalic - Eye Eye exam: Present: normal appearance - ENT ENT exam: Present: normal exam, normal orophraynx, other (slight upper lip swelling. No other angioedema present. Uvula midline.) - Neck Neck exam: Present: normal inspection, full ROM - Respiratory Respiratory exam: Present: normal lung sounds bilaterally. Absent: respiratory distress, wheezes, rales, rhonchi, stridor, chest wall tenderness, accessory muscle use, decreased breath sounds, prolonged expiratory - Cardiovascular Cardiovascular Exam: Present: regular rate, normal rhythm, normal heart sounds. Absent: bradycardia, tachycardia, irregular rhythm, systolic murmur, diastolic murmur, rubs, gallop - Extremities Exam Extremities exam: Present: normal inspection, full ROM, normal capillary refill - Back Exam Back exam: Present: normal inspection, full ROM - Neurological Exam Neurological exam: Present: alert, oriented X3 - Psychiatric Psychiatric exam: Present: normal affect, normal mood - Skin Skin exam: Present: warm, dry, intact, normal color. Absent: rash ED Course Vital Signs 10/19/18 11:53 Temperature 98.3 F Pulse Rate 74 Respiratory 16 Rate Blood Pressure 119/49 O2 Sat by Pulse 96 Oximetry - Reevaluation(s) Reevaluation #1: 10/19/18 13:26 Patient is speaking in full sentences with no signs of distress noted. ED Medical Decision Making - Medical Decision Making This is a 48-year-old female that presents with allergic reaction. Patient is stable was examined by me. Slight upper lip swelling but there is no other fa cial swelling. No angioedema. There is no cellulitis. No hoarseness. Patient has also been monitor for in the ED and swelling has decreased with no worsening. Patient received 1 L normal saline, Benadryl, Decadron, and Pepcid in the ED IV. Patient was instructed not to operate any machinery after discharge due to possible drowsiness of Benadryl. Patient stated that a family member will drive patient home after discharge. Patient is discharged with prednisone and Benadryl. Patient was referred to Follow-up with a primary care doctor in 3-5 days or if symptoms worsen and continue return to emergency room as soon as possible. At time of discharge, the patient does not seem toxic or ill in appearance. No acute signs of distress noted. Patient agrees to discharge treatment plan of care. No further questions noted by the patient. Critical care attestation.: If time is entered above; I have spent that time in minutes in the direct care of this critically ill patient, excluding procedure time. ED Disposition Clinical Impression: Allergic reaction Qualifiers: Encounter type: initial encounter Qualified Code(s): T78.40XA - Allergy, unspecified, initial encounter Disposition: TO HOME OR SELFCARE Is pt being admited?: No Does the pt Need Aspirin: No Condition: Stable Instructions: Angioedema (ED) Additional Instructions: Follow-up with a primary care doctor in 3-5 days or if symptoms worsen and continue return to emergency room as soon as possible. Prescriptions: diphenhydrAMINE [Benadryl CAP] 25 mg PO Q6HR PRN #20 capsule PRN Reason: Itching Prednisone [predniSONE 10 mg (6-Day Pack, 21 Tabs)] 10 mg PO .TAPER #1 tab.ds.pk Referrals: PRIMARY CARE, [Primary Care Provider] - 3-5 Days INOCENTE REDD MD [Staff Physician] - 3-5 Days [facility] [Outside] - 3-5 Days [facility] [Outside] - 3-5 Days Forms: Work/School Release Form(ED)
== END 2018-10-19 14:46 | disposition home or self-care (01) ==
LOC: ED 11:45
DX: T78.40XA Allergy, unspecified, initial encounter (principal); Y92.89 Other specified places as the place of occurrence of the external cause
CPT/HCPCS: 96374; 96375; 99282; J1100; J1200; J7030

== ENCOUNTER 2018-11-15 13:36 | Emergency (ER) | payer MEDICARE ==
[2018-11-15] MEDS ORDERED: ATROVENT IH ONE (15:40)
[2018-11-15] MEDS ORDERED: PROVENTIL IH ONE (15:40)
[2018-11-15] MEDS ORDERED: TYLENOL PO STA (16:38)
[2018-11-15] MEDS ORDERED: SOLU-Medrol IV ONE (16:38)
[2018-11-15] MEDS ORDERED: MAGNESIUM SULFATE 2GM/50ML 2 GM/50 ML BAG IV ONE (16:38)
[2018-11-15] MEDS ORDERED: NACL 0.9% 500 ML 500 ML IV ONE (16:38)
--- NOTE | 2018-11-15 16:41 | Emergency Department Report ---
ED General Adult HPI - General Chief complaint: Adult Asthma Stated complaint: ASTHMA/BODY PAIN Time Seen by Provider: 11/15/18 16:30 Source: patient, RN notes reviewed, old records reviewed Mode of arrival: Ambulatory Limitations: No Limitations - History of Present Illness Initial comments: Primary care Dr.: Dr. Shon Oneal Pulmonology: Dr. Marlen Dickerson Past medical history: Asthma, diagnosed in 2004, intubation 3, obesity, hernia, multiple emergency room visits This is a 48-year-old female I have evaluated this patient in the past. The patient presents to the emergency room today with a complaint of diffuse arthritis, myalgias, malaise, cough, wheezing, and nontraumatic right lateral thoracic pain. Symptoms present for the past 2-3 days. Patient reports symptoms constant, worse with physical exertion, palpation, and decreased with rest. The patient denies DVT, pulmonary embolus risk factors. She reports that she is not . She denies oral contraceptive use. She reports that she feels like her magnesium and potassium levels are low, he has "my muscles and joints ache when they get low like this." She denies urinary symptoms. She reports no improvement with her home medications. -: Gradual Location: chest (right lateral/posterior thoracic region), left, right, upper ex tremity, lower extremity Radiation: non-radiation Severity scale (0 -10): 8 Quality: burning, aching Consistency: intermittent Improves with: rest Worsens with: movement Associated Symptoms: cough, loss of appetite, malaise, shortness of breath. denies: confusion, diaphoresis, fever/chills, headaches, nausea/vomiting, rash, seizure, syncope, weakness - Related Data Home Medications Medication Instructions Recorded Confirmed Last Taken Cetirizine HCl [Zyrtec] 10 mg PO DAILY 03/27/18 08/31/18 08/30/18 Fluticasone/Salmeterol [Advair 1 each PO BID 03/27/18 08/31/18 08/30/18 500-50 Diskus] Levothyroxine 1 tab PO DAILY 08/31/18 08/31/18 08/30/18 Ranitidine HCl 75 mg PO DAILY 08/31/18 08/31/18 08/30/18 Previous Rx's Medication Instructions Recorded Last Taken Type ALBUTEROL Inhaler (OR & NICU) 2 puff IH QID PRN #1 inhalation 03/28/18 08/30/18 Rx [ProAir HFA Inhaler] ALBUTEROL NEB's [Proventil 0.083% 2.5 mg IH TID PRN 30 Days nebu 03/28/18 08/31/18 Rx NEBS] Prednisone [predniSONE 10 mg 10 mg PO .TAPER #1 tab.ds.pk 06/30/18 08/30/18 Rx (6-Day Pack, 21 Tabs)] medroxyPROGESTERone ACETATE 10 mg PO DAILY #10 tablet 07/04/18 08/30/18 Rx [Provera] Acetaminophen [Tylenol Arthritis] 650 mg PO Q6HR PRN #30 tablet.er 08/31/18 Unknown Rx Albuterol Sulfate [Proair 90 mcg IH Q4HR PRN #2 aer.pow.ba 08/31/18 Unknown Rx Respiclick] Benzonatate [Tessalon Perles] 100 mg PO Q8HR PRN #30 capsule 08/31/18 Unknown Rx Ipratropium [place] [Atrovent Hfa] 12.9 gm IH Q4HR #2 hfa.aer.ad 08/31/18 Unknown Rx predniSONE [Deltasone] 50 mg PO QDAY #5 tab 09/06/18 Unknown Rx ALBUTEROL Inhaler (OR & NICU) 2 puff IH QID PRN #1 inhalation 10/04/18 Unknown Rx [Proair] Albuterol Sulfate [Albuterol 0.63% 0.63 mg IH TID PRN #90 ml 10/04/18 Unknown Rx NEBS] Prednisone [predniSONE 10 mg 10 mg PO .TAPER #1 tab.ds.pk 10/04/18 Unknown Rx (6-Day Pack, 21 Tabs)] predniSONE [Deltasone] 40 mg PO QDAY #8 tab 10/14/18 Unknown Rx Prednisone [predniSONE 10 mg 10 mg PO .TAPER #1 tab.ds.pk 10/19/18 Unknown Rx (6-Day Pack, 21 Tabs)] diphenhydrAMINE [Benadryl CAP] 25 mg PO Q6HR PRN #20 capsule 10/19/18 Unknown Rx Acetaminophen [Tylenol Arthritis] 650 mg PO Q6HR PRN #30 tablet.er 11/15/18 Un known Rx Albuterol Sulfate [Albuterol 0.63% 0.63 mg IH Q4HR PRN #2 ml 11/15/18 Unknown Rx NEBS] Albuterol Sulfate [Proair 90 mcg IH Q4HR PRN #2 aer.pow.ba 11/15/18 Unknown Rx Respiclick] predniSONE [Deltasone] 40 mg PO QDAY #8 tab 11/15/18 Unknown Rx Allergies Allergy/AdvReac Type Severity Reaction Status Date / Time doxycycline Allergy Rash Verified 07/04/18 11:09 ketorolac tromethamine Allergy Anaphylaxis Verified 07/04/18 11:09 [From Toradol] Latex, Natural Rubber Allergy Angioedema Verified 07/04/18 11:09 morphine Allergy Shortness Verified 07/04/18 11:09 of Breath azithromycin [From Zithromax] AdvReac Anaphylaxis Verified 07/04/18 11:09 NSAIDS (Non-Steroidal AdvReac Anaphylaxis Verified 07/04/18 11:09 Anti-Inflamma Penicillins AdvReac Hives Verified 07/04/18 11:09 ED Review of Systems ROS: Stated complaint: ASTHMA/BODY PAIN Other details as noted in HPI Constitutional: malaise. denies: fever Eyes: denies: eye discharge ENT: congestion Respiratory: cough, wheezing Cardiovascular: denies: syncope Gastrointestinal: denies: nausea, vomiting Genitourinary: denies: urgency Musculoskeletal: arthralgia, myalgia Skin: denies: lesions Neurological: weakness Psychiatric: anxiety ED Past Medical Hx - Past Medical History Previous Medical History?: Yes Hx Hypertension: No Hx Heart Attack/AMI: No Hx Congestive Heart Failure: No Hx Diabetes: No Hx Deep Vein Thrombosis: No Hx Pulmonary Embolism: No Hx GERD: Yes Hx Liver Disease: No Hx Renal Disease: No Hx Sickle Cell Disease: No Hx Arthritis: No Hx Seizures: No Hx Kidney Stones: No Hx Asthma: Yes Hx COPD: No Hx Tuberculosis: No Hx Dementia: No Hx HIV: No Additional medical history: sinus problems --chronic sinusitis /ABD HERNIA,. Prior Intubations x3. Obesity. - Surgical History Past Surgical History?: Yes Hx Coronary Stent: No Hx Open Heart Surgery: No Hx Pacemaker: No Hx Internal Defibrillator: No Hx Cholecystectomy: No Hx Appendectomy: No Hx Breast Surgery: No Additional Surgical History: x4, umbilical hernia repair, sinus surgeries, D&C. thyroid removal. tubiligation - Social History Smoking Status: Never Smoker Substance Use Type: None - Medications Home Medications: Home Medications Medication Instructions Recorded Confirmed Last Taken Type Cetirizine HCl [Zyrtec] 10 mg PO DAILY 03/27/18 08/31/18 08/30/18 History Fluticasone/Salmeterol [Advair 1 each PO BID 03/27/18 08/31/18 08/30/18 History 500-50 Diskus] ALBUTEROL Inhaler (OR & NICU) 2 puff IH QID PRN #1 inhalation 03/28/18 08/31/18 08/30/18 Rx [ProAir HFA Inhaler] ALBUTEROL NEB's [Proventil 0.083% 2.5 mg IH TID PRN 30 Days nebu 03/28/18 08/31/18 08/31/18 Rx NEBS] Prednisone [predniSONE 10 mg 10 mg PO .TAPER #1 tab.ds.pk 06/30/18 08/31/18 08/30/18 Rx (6-Day Pack, 21 Tabs)] medroxyPROGESTERone ACETATE 10 mg PO DAILY #10 tablet 07/04/18 08/31/18 08/30/18 Rx [Provera] Acetaminophen [Tylenol Arthritis] 650 mg PO Q6HR PRN #30 tablet.er 08/31/18 Unknown Rx Albuterol Sulfate [Proair 90 mcg IH Q4HR PRN #2 aer.pow.ba 08/31/18 Unknown Rx Respiclick] Benzonatate [Tessalon Perles] 100 mg PO Q8HR PRN #30 capsule 08/31/18 Unknown Rx Ipratropium [place] [Atrovent Hfa] 12.9 gm IH Q4HR #2 hfa.aer.ad 08/31/18 Unknown Rx Levothyroxine 1 tab PO DAILY 08/31/18 08/31/18 08/30/18 History Ranitidine HCl 75 mg PO DAILY 08/31/18 08/31/18 08/30/18 History predniSONE [Deltasone] 50 mg PO QDAY #5 tab 09/06/18 Unknown Rx ALBUTEROL Inhaler (OR & NICU) 2 puff IH QID PRN #1 inhalation 10/04/18 Unknown Rx [Proair] Albuterol Sulfate [Albuterol 0.63% 0.63 mg IH TID PRN #90 ml 10/04/18 Unknown Rx NEBS] Prednisone [predniSONE 10 mg 10 mg PO .TAPER #1 tab.ds.pk 10/04/18 Unknown Rx (6-Day Pack, 21 Tabs)] predniSONE [Deltasone] 40 mg PO QDAY #8 tab 10/14/18 Unknown Rx Prednisone [predniSONE 10 mg 10 mg PO .TAPER #1 tab.ds.pk 10/19/18 Unknown Rx (6-Day Pack, 21 Tabs)] diphenhydrAMINE [Benadryl CAP] 25 mg PO Q6HR PRN #20 capsule 10/19/18 Unknown Rx Acetaminophen [Tylenol Arthritis] 650 mg PO Q6HR PRN #30 tablet.er 11/15/18 Unknown Rx Albuterol Sulfate [Albuterol 0.63% 0.63 mg IH Q4HR PRN #2 ml 11/15/18 Unknown Rx NEBS] Albuterol Sulfate [Proair 90 mcg IH Q4HR PRN #2 aer.pow.ba 11/15/18 Unknown Rx Respiclick] predniSONE [Deltasone] 40 mg PO QDAY #8 tab 11/15/18 Unknown Rx ED Physical Exam - General Limitations: No Limitations General appearance: alert, in no apparent distress, obese - Head Head exam: Present: atraumatic, normocephalic - Eye Eye exam: Present: normal appearance, EOMI. Absent: nystagmus - ENT ENT exam: Present: normal exam, normal orophraynx, mucous membranes moist, normal external ear exam - Neck Neck exam: Present: normal inspection, full ROM. Absent: tenderness, meningismus - Respiratory Respiratory exam: Present: respiratory distress, wheezes, rhonchi, chest wall tenderness (there is right lateral thoracic and right posterior thoracic tenderness. No redness, pus or streaking.) - Cardiovascular Cardiovascular Exam: Present: regular rate, normal rhythm, normal heart sounds. Absent: bradycardia, tachycardia, irregular rhythm, systolic murmur, diastolic murmur, rubs, gallop - GI/Abdominal GI/Abdominal exam: Present: soft. Absent: distended, tenderness, guarding, rebound, rigid, pulsatile mass - Extremities Exam Extremities exam: Present: normal inspection, full ROM, other (2+ pulses noted in the bilateral upper, lower extremities. Compartments soft. No long bony tenderness. The pelvis is stable.). Absent: pedal edema, joint swelling, calf tenderness - Back Exam Back exam: Present: normal inspection, full ROM, paraspinal tenderness. Absent: tenderness, CVA tenderness (R), vertebral tenderness - Neurological Exam Neurological exam: Present: alert, oriented X3, CN II-XII intact, other (Extraocular movements intact. Tongue midline. No facial droop. Facial sensation intact to light touch in the V1, V2, V3 distribution bilaterally. 5 and 5 strength in 4 extremities.. Sensation is intact to light touch in 4 extremities.). Absent: motor sensory deficit - Psychiatric Psychiatric exam: Present: normal affect, normal mood - Skin Skin exam: Present: warm, dry, intact, normal color. Absent: rash ED Course Vital Signs 11/15/18 11/15/18 11/15/18 13:54 15:16 15:30 Temperature 98.3 F Pulse Rate 86 Pulse Rate [ Posterior Bilateral Throughout] Respiratory 18 Rate Respiratory Rate [Posterior Bilateral Throughout] Blood Pressure 118/75 100/62 Blood Pressure [Right] O2 Sat by Pulse 97 98 97 Oximetry 11/15/18 11/15/18 11/15/18 15:46 16:00 16:16 Temperature Pulse Rate Pulse Rate [ 85 Posterior Bilateral Throughout] Respiratory Rate Respiratory 18 Rate [Posterior Bilateral Throughout] Blood Pressure 118/64 Blood Pressure [Right] O2 Sat by Pulse 96 99 100 Oximetry 11/15/18 11/15/18 11/15/18 16:17 16:30 16:46 Temperature Pulse Rate Pulse Rate [ 88 Posterior Bilateral Throughout] Respiratory Rate Respiratory 20 Rate [Posterior Bilateral Throughout] Blood Pressure Blood Pressure [Right] O2 Sat by Pulse 100 96 Oximetry 11/15/18 11/15/18 11/15/18 17:20 17:30 17:46 Temperature Pulse Rate Pulse Rate [ Posterior Bilateral Throughout] Respiratory Rate Respiratory Rate [Posterior Bilateral Throughout] Blood Pressure Blood Pressure [Right] O2 Sat by Pulse 96 95 96 Oximetry 11/15/18 11/15/18 11/15/18 18:00 18:03 18:34 Temperature Pulse Rate 75 85 Pulse Rate [ Posterior Bilateral Throughout] Respiratory 16 16 Rate Respiratory Rate [Posterior Bilateral Throughout] Blood Pressure 131/56 Blood Pressure 131/56 [Right] O2 Sat by Pulse 96 97 Oximetry - Reevaluation(s) Reevaluation #1: 11/15/18 17:40 Differential diagnosis, including but not limited to: Arthritis, myositis, asthma, bronchitis, costochondritis, electrolyte derangement Assessment and plan: 48-year-old female whom I have evaluated in the past, with multiple hospital evaluations for asthma. Patient reports no DVT, pulmonary embolus risk factors, she is low risk by well's criteria, and is perc negative Physical examination remarkable for reproducible chest wall pain, and wheezing. Patient speaking in full sentences, and playing on a cellular phone. She is also having a full conversation with her young child. Patient is unfortunately allergic/intolerance to NSAIDs. She will be given acetaminophen for pain. She will be given albuterol, Atrovent, steroids, magnesium. X-ray of the chest unremarkable. Screening laboratory studies pending. Reevaluation #2: 11/15/18 18:45 Patient feels improved. Wheezing improved. Laboratory studies unremarkable. Speaking on a cellular phone in no acute distress. During ambulation, oxygen stays 96-98% on room air, heart rate 75 t to 80 bpm. Patient reports readiness for discharge. ED Medical Decision Making - Lab Data Result diagrams: 11/15/18 16:51 11/15/18 16:51 Vital Signs 11/15/18 11/15/18 11/15/18 13:54 15:46 16:17 Temperature 98.3 F Pulse Rate 86 Pulse Rate [ 85 88 Posterior Bilateral Throughout] Respiratory 18 Rate Respiratory 18 20 Rate [Posterior Bilateral Throughout] Blood Pressure 118/75 O2 Sat by Pulse 97 Oximetry Lab Results 11/15/18 11/15/18 11/15/18 Range/Units 16:43 16:51 16:51 Hgb 13.0 (10.1-14.3) gm/dl Hct 39.7 (30.3-42.9) % PT 12.7 (12.2-14.9) Sec. INR 0.91 (0.87-1.13) Sodium 143 (137-145) mmol/L Potassium 4.4 (3.6-5.0) mmol/L Chloride 104.8 (98-107) mmol/L Carbon Dioxide 27 (22-30) mmol/L Anion Gap 16 mmol/L BUN 10 (7-17) mg/dL Creatinine 0.9 (0.7-1.2) mg/dL Estimated GFR > 60 ml/min BUN/Creatinine Ratio 11 % Glucose 111 H (65-100) mg/dL Calcium 9.3 (8.4-10.2) mg/dL Magnesium 2.00 (1.7-2.3) mg/dL Total Creatine Kinase 287 H (30-135) units/L - Radiology Data Radiology results: image reviewed interpreted by me: X-ray of the chest is negative for acute disease. X-ray the chest is negative for acute disease. Critical care attestation.: If time is entered above; I have spent that time in minutes in the direct care of this critically ill patient, excluding procedure time. ED Disposition Clinical Impression: Asthma Qualifiers: Asthma severity: mild Asthma persistence: intermittent Asthma complication type: unspecified Qualified Code(s): J45.20 - Mild intermittent asthma, uncomplicated Disposition: TO HOME OR SELFCARE Is pt being admited?: No Does the pt Need Aspirin: No Condition: Stable Instructions: Asthma (ED) Additional Instructions: Take the medications as needed/directed. Follow up with the primary care doctor or pulmonary doctor within the next 7-10 days. Return to the emergency room right away with you, worsens, different symptoms. Avoid consumption of tobacco, smoke and exposure to smoke related products. Referrals: [facility] MD [Staff Physician] - 7-10 days
[2018-11-15 17:10] LABS: Hematocrit 39.7 % (30.3-42.9)
[2018-11-15 17:19] LABS: INR 0.91 (0.87-1.13)
[2018-11-15 17:24] LABS: BUN/Creatinine Ratio 11; Blood Urea Nitrogen 10 mg/dL (7-17); Calcium 9.3 mg/dL (8.4-10.2); Hemolysis Index 133
--- NOTE | 2018-11-15 17:43 | XRay Report ---
FINAL REPORT EXAM: XR CHEST ROUTINE 2V HISTORY: asthma/cough/wheezing TECHNIQUE: 2 view examination of the chest PRIORS: Portable chest 10/04/2018 FINDINGS: There is no visible pulmonary consolidation, pleural effusion, or pneumothorax. Cardiac silhouette size is normal without vascular congestion. No visible acute displaced fracture in the regional skeleton. IMPRESSION: No evidence of acute cardiopulmonary disease
[2018-11-15 18:03] VITALS: BP 131/56
== END 2018-11-15 19:13 | disposition home or self-care (01) ==
LOC: ED 13:36
DX: J45.20 Mild intermittent asthma, uncomplicated (principal); K21.9 Gastro-esophageal reflux disease without esophagitis; Z98.51 Tubal ligation status; Z88.0 Allergy status to penicillin; Z88.6 Allergy status to analgesic agent; Z88.1 Allergy status to other antibiotic agents; Z91.040 Latex allergy status
CPT/HCPCS: 36415; 71046; 80048; 82550; 83735; 85014; 85018; 85610; 94640; 96365; 96375; 99284; J2930; J3475; J7040

== ENCOUNTER 2018-11-24 18:11 | Emergency (ER) | payer MEDICARE ==
--- NOTE | 2018-11-24 18:46 | Emergency Department Report ---
Blank Doc - Documentation Documentation: This is a 48-year-old female that presents with chest pain. STated chest pain is across chest. Stated has heaviness in her chest and like a "elephant on chest". Denies any radiation of pain. Also stated has shortness of breathe. Also c/o of midback right sided pain. This initial assessment diagnostic orders/clinical plan/treatment(s) is/are subject to change based on patient's health status, clinical progression and re- assessment by fellow clinical providers in the ED. Further treatment and workup at subsequent clinical providers discretion. Patient/guardians urged not to elope from ED s their condition may be serious if not clinically assessed and managed. Initial orders include: 1-Patient sent to MAIN ED for further evaluation and treatment 2- Labs 3- EKG 4- CXR
[2018-11-24 19:20] LABS: Basophils % (Auto) 0.5 % (0.0-1.8); Eosinophils # (Auto) 0.3 K/mm3 (0.0-0.4); Eosinophils % (Auto) 2.8 % (0.0-4.3); Hemoglobin 13.4 gm/dl (10.1-14.3); Lymphocytes # (Auto) 1.3 K/mm3 (1.2-5.4); Lymphocytes % (Auto) 12.7 % (13.4-35.0); Mean Corpuscular HGB Conc 33 % (30-34); Mean Corpuscular Volume 83 fl (79-97); Monocytes # (Auto) 0.7 K/mm3 (0.0-0.8); Monocytes % (Auto) 6.4 % (0.0-7.3); Platelet Count 280 K/mm3 (140-440); Red Blood Count 4.97 M/mm3 (3.65-5.03); Red Cell Distribution Width 16.3 % (13.2-15.2)
[2018-11-24 19:30] LABS: INR 0.9 (0.87-1.13)
[2018-11-24 19:31] LABS: Partial Thromboplastin Time 29.2 Sec. (24.2-36.6)
[2018-11-24 19:44] LABS: Alanine Aminotransferase 16 units/L (7-56); BUN/Creatinine Ratio 13; Blood Urea Nitrogen 12 mg/dL (7-17); Calcium 9.1 mg/dL (8.4-10.2); Hemolysis Index 9
--- NOTE | 2018-11-24 20:13 | XRay Report ---
FINAL REPORT EXAM: XR CHEST ROUTINE 2V HISTORY: Chest Pain TECHNIQUE: Two view chest PA and lateral PRIORS: None. FINDINGS: Cardiac and mediastinal contours are unremarkable. No focal pulmonary infiltrate is identified. No pleural fluid collection seen. Pulmonary vasculature is unremarkable. IMPRESSION: Negative two-view chest
[2018-11-24] MEDS ORDERED: PEPCID PO ONE (20:58)
[2018-11-24] MEDS ORDERED: DELTASONE PO ONE (20:58)
[2018-11-24] MEDS ORDERED: ATROVENT IH ONE (20:58)
[2018-11-24] MEDS ORDERED: PROVENTIL IH ONE (20:58)
--- NOTE | 2018-11-24 21:04 | Emergency Department Report ---
ED General Adult HPI - General Chief complaint: Adult Asthma Stated complaint: CHEST PAIN/WHEEZING Time Seen by Provider: 11/24/18 18:46 Source: patient, RN notes reviewed, old records reviewed Mode of arrival: Ambulatory Limitations: No Limitations - History of Present Illness Initial comments: Primary care Dr.: Dr. Shon Bruno This is a 48-year-old female whom I have evaluated in the past. Her past history includes asthma, obesity, hernia. The patient presents to the emergency room today with complaint of 3 days anterior, bilateral chest wall pain, which she describes as heaviness and pressure. This pain is constant, worsens with palpation, and does not radiates to the back, arms or neck. The patient denies leg pain, leg swelling, oral contraceptive use. The patient denies , and DVT, pulmonary embolus risk factors. The patient also describes nontraumatic back pain, epigastric upper abdominal pain, wheezing, shortness of breath. This is similar to prior episodes and prior presentations in the emergency room. The patient denies hematemesis, bright red blood per rectum. She denies irritative, obstructive urinary symptoms. Patient had a negative nuclear stress test in 2016. -: Gradual, days(s) Location: chest, back, abdomen Radiation: non-radiation Severity scale (0 -10): 10 Quality: aching Consistency: other Improves with: other Associated Symptoms: chest pain, cough, loss of appetite, malaise, shortness of breath, weakness. denies: confusion, diaphoresis, fever/chills, headaches, nausea/vomiting, rash, seizure, syncope - Related Data Home Medications Medication Instructions Recorded Confirmed Last Taken Cetirizine HCl [Zyrtec] 10 mg PO DAILY 03/27/18 08/31/18 08/30/18 Levothyroxine 1 tab PO DAILY 08/31/18 08/31/18 08/30/18 Ranitidine HCl 75 mg PO DAILY 08/31/18 08/31/18 08/30/18 Previous Rx's Medication Instructions Recorded Last Taken Type Prednisone [predniSONE 10 mg 10 mg PO .TAPER #1 tab.ds.pk 06/30/18 08/30/18 Rx (6-Day Pack, 21 Tabs)] medroxyPROGESTERone ACETATE 10 mg PO DAILY #10 tablet 07/04/18 08/30/18 Rx [Provera] Albuterol Sulfate [Proair 90 mcg IH Q4HR PRN #2 aer.pow.ba 08/31/18 Unknown Rx Respiclick] Ipratropium [place] [Atrovent Hfa] 12.9 gm IH Q4HR #2 hfa.aer.ad 08/31/18 Unknown Rx predniSONE [Deltasone] 50 mg PO QDAY #5 tab 09/06/18 Unknown Rx ALBUTEROL Inhaler (OR & NICU) 2 puff IH QID PRN #1 inhalation 10/04/18 Unknown Rx [Proair] Albuterol Sulfate [Albuterol 0.63% 0.63 mg IH TID PRN #90 ml 10/04/18 Unknown Rx NEBS] Prednisone [predniSONE 10 mg 10 mg PO .TAPER #1 tab.ds.pk 10/04/18 Unknown Rx (6-Day Pack, 21 Tabs)] Prednisone [predniSONE 10 mg 10 mg PO .TAPER #1 tab.ds.pk 10/19/18 Unknown Rx (6-Day Pack, 21 Tabs)] diphenhydrAMINE [Benadryl CAP] 25 mg PO Q6HR PRN #20 capsule 10/19/18 Unknown Rx Acetaminophen [Tylenol Arthritis] 650 mg PO Q6HR PRN #30 tablet.er 11/15/18 Unknown Rx Albuterol Sulfate [Albuterol 0.63% 0.63 mg IH Q4HR PRN #2 ml 11/15/18 Unknown Rx NEBS] Albuterol Sulfate [Proair 90 mcg IH Q4HR PRN #2 aer.pow.ba 11/15/18 Unknown Rx Respiclick] predniSONE [Deltasone] 40 mg PO QDAY #8 tab 11/15/18 Unknown Rx ALBUTEROL Inhaler (OR & NICU) 2 puff IH QID PRN #1 inhalation 11/24/18 Unknown Rx [ProAir HFA Inhaler] ALBUTEROL NEB's [Proventil 0.083% 2.5 mg IH TID PRN 30 Days nebu 11/24/18 Unknown Rx NEBS] Acetaminophen [Tylenol Arthritis] 650 mg PO Q6HR PRN #30 tablet.er 11/24/18 Unknown Rx Benzonatate [Tessalon Perles] 100 mg PO Q8HR PRN #30 capsule 11/24/18 Unknown Rx Famotidine [Pepcid] 20 mg PO BID #10 tablet 11/24/18 Unknown Rx Fluticasone/Salmeterol [Advair 1 each PO BID #1 blst.w.dev 11/24/18 Unknown Rx 500-50 Diskus] Ipratropium [Atrovent NEB] 0.5 mg IH Q4HR #2 ml 11/24/18 Unknown Rx predniSONE [Deltasone] 40 mg PO QDAY #8 tab 11/24/18 Unknown Rx Allergies Allergy/AdvReac Type Severity Reaction Status Date / Time doxycycline Allergy Rash Verified 07/04/18 11:09 ketorolac tromethamine Allergy Anaphylaxis Verified 07/04/18 11:09 [From Toradol] Latex, Natural Rubber Allergy Angioedema Verified 07/04/18 11:09 morphine Allergy Shortness Verified 07/04/18 11:09 of Breath azithromycin [From Zithromax] AdvReac Anaphylaxis Verified 07/04/18 11:09 NSAIDS (Non-Steroidal AdvReac Anaphylaxis Verified 07/04/18 11:09 Anti-Inflamma Penicillins AdvReac Hives Verified 07/04/18 11:09 ED Review of Systems ROS: Stated complaint: CHEST PAIN/WHEEZING Other details as noted in HPI Constitutional: denies: fever Eyes: denies: eye discharge ENT: congestion Respiratory: cough, shortness of breath, wheezing Cardiovascular: chest pain Gastrointestinal: abdominal pain. denies: nausea, vomiting Genitourinary: denies: dysuria Musculoskeletal: back pain Skin: denies: lesions Neurological: denies: confusion Psychiatric: denies: anxiety ED Past Medical Hx - Past Medical History Hx Hypertension: No Hx Heart Attack/AMI: No Hx Congestive Heart Failure: No Hx Diabetes: No Hx Deep Vein Thrombosis: No Hx Pulmonary Embolism: No Hx GERD: Yes Hx Liver Disease: No Hx Renal Disease: No Hx Sickle Cell Disease: No Hx Arthritis: No Hx Seizures: No Hx Kidney Stones: No Hx Asthma: Yes Hx COPD: No Hx Tuberculosis: No Hx Dementia: No Hx HIV: No Additional medical history: sinus problems --chronic sinusitis /ABD HERNIA,. Prior Intubations x3. Obesity. - Surgical History Hx Coronary Stent: No Hx Open Heart Surgery: No Hx Pacemaker: No Hx Internal Defibrillator: No Hx Cholecystectomy: No Hx Appendectomy: No Hx Breast Surgery: No Additional Surgical History: x4, umbilical hernia repair, sinus surgeries, D&C. thyroid removal. tubiligation - Social History Smoking Status: Unknown if ever smoked Substance Use Type: None - Medications Home Medications: Home Medications Medication Instructions Recorded Confirmed Last Taken Type Cetirizine HCl [Zyrtec] 10 mg PO DAILY 03/27/18 08/31/18 08/30/18 History Prednisone [predniSONE 10 mg 10 mg PO .TAPER #1 tab.ds.pk 06/30/18 08/31/18 08/30/18 Rx (6-Day Pack, 21 Tabs)] medroxyPROGESTERone ACETATE 10 mg PO DAILY #10 tablet 07/04/18 08/31/18 08/30/18 Rx [Provera] Albuterol Sulfate [Proair 90 mcg IH Q4HR PRN #2 aer.pow.ba 08/31/18 Unknown Rx Respiclick] Ipratropium [place] [Atrovent Hfa] 12.9 gm IH Q4HR #2 hfa.aer.ad 08/31/18 Unknown Rx Levothyroxine 1 tab PO DAILY 08/31/18 08/31/18 08/30/18 History Ranitidine HCl 75 mg PO DAILY 08/31/18 08/31/18 08/30/18 History predniSONE [Deltasone] 50 mg PO QDAY #5 tab 09/06/18 Unknown Rx ALBUTEROL Inhaler (OR & NICU) 2 puff IH QID PRN #1 inhalation 10/04/18 Unknown Rx [Proair] Albuterol Sulfate [Albuterol 0.63% 0.63 mg IH TID PRN #90 ml 10/04/18 Unknown Rx NEBS] Prednisone [predniSONE 10 mg 10 mg PO .TAPER #1 tab.ds.pk 10/04/18 Unknown Rx (6-Day Pack, 21 Tabs)] Prednisone [predniSONE 10 mg 10 mg PO .TAPER #1 tab.ds.pk 10/19/18 Unknown Rx (6-Day Pack, 21 Tabs)] diphenhydrAMINE [Benadryl CAP] 25 mg PO Q6HR PRN #20 capsule 10/19/18 Unknown Rx Acetaminophen [Tylenol Arthritis] 650 mg PO Q6HR PRN #30 tablet.er 11/15/18 Unknown Rx Albuterol Sulfate [Albuterol 0.63% 0.63 mg IH Q4HR PRN #2 ml 11/15/18 Unknown Rx NEBS] Albuterol Sulfate [Proair 90 mcg IH Q4HR PRN #2 aer.pow.ba 11/15/18 Unknown Rx Respiclick] predniSONE [Deltasone] 40 mg PO QDAY #8 tab 11/15/18 Unknown Rx ALBUTEROL Inhaler (OR & NICU) 2 puff IH QID PRN #1 inhalation 11/24/18 Unknown Rx [ProAir HFA Inhaler] ALBUTEROL NEB's [Proventil 0.083% 2.5 mg IH TID PRN 30 Days nebu 11/24/18 Unknown Rx NEBS] Acetaminophen [Tylenol Arthritis] 650 mg PO Q6HR PRN #30 tablet.er 11/24/18 Unknown Rx Benzonatate [Tessalon Perles] 100 mg PO Q8HR PRN #30 capsule 11/24/18 Unknown Rx Famotidine [Pepcid] 20 mg PO BID #10 tablet 11/24/18 Unknown Rx Fluticasone/Salmeterol [Advair 1 each PO BID #1 blst.w.dev 11/24/18 Unknown Rx 500-50 Diskus] Ipratropium [Atrovent NEB] 0.5 mg IH Q4HR #2 ml 11/24/18 Unknown Rx predniSONE [Deltasone] 40 mg PO QDAY #8 tab 11/24/18 Unknown Rx ED Physical Exam - General Limitations: No Limitations General appearance: alert, in no apparent distress, obese - Head Head exam: Present: atraumatic, normocephalic - Eye Eye exam: Present: normal appearance. Absent: nystagmus - ENT ENT exam: Present: normal exam, normal orophraynx, mucous membranes moist, normal external ear exam, other (patient speaking in full sentences, and in no acute distress.) - Neck Neck exam: Present: normal inspection, full ROM. Absent: tenderness, meningismus - Respiratory Respiratory exam: Present: wheezes (very faint wheezing is noted), chest wall tenderness. Absent: rhonchi, stridor - Cardiovascular Cardiovascular Exam: Present: regular rate, normal rhythm, normal heart sounds. Absent: bradycardia, tachycardia, irregular rhythm, systolic murmur, diastolic murmur, rubs, gallop - GI/Abdominal GI/Abdominal exam: Present: soft. Absent: distended, tenderness, guarding, rebound, rigid, pulsatile mass - Extremities Exam Extremities exam: Present: normal inspection, full ROM, other (2+ pulses noted in the bilateral upper, lower extremities. Compartments soft. No long bony tenderness. The pelvis is stable.). Absent: pedal edema, joint swelling, calf tenderness - Back Exam Back exam: Present: normal inspection, full ROM. Absent: tenderness, CVA tenderness (R), paraspinal tenderness, vertebral tenderness - Neurological Exam Neurological exam: Present: alert, oriented X3, CN II-XII intact, normal gait, other (Extraocular movements intact. Tongue midline. No facial droop. Facial sensation intact to light touch in the V1, V2, V3 distribution bilaterally. 5 and 5 strength in 4 extremities.. Sensation is intact to light touch in 4 extremities.). Absent: motor sensory deficit - Psychiatric Psychiatric exam: Present: normal affect, normal mood - Skin Skin exam: Present: warm, dry, intact, normal color. Absent: rash ED Course Vital Signs 11/24/18 11/24/18 11/24/18 18:46 21:19 21:26 Temperature 97.9 F Pulse Rate 73 Pulse Rate [ 85 Posterior] Respiratory 18 10 L Rate Respiratory 18 Rate [Posterior ] Blood Pressure 124/82 Blood Pressure [Right] O2 Sat by Pulse 97 Oximetry 11/24/18 11/24/18 11/24/18 21:30 21:45 22:01 Temperature Pulse Rate 57 L 61 72 Pulse Rate [ Posterior] Respiratory 16 17 17 Rate Respiratory Rate [Posterior ] Blood Pressure 108/67 108/67 107/53 Blood Pressure [Right] O2 Sat by Pulse Oximetry 11/24/18 11/24/18 22:15 22:36 Temperature 97.9 F Pulse Rate 86 89 Pulse Rate [ Posterior] Respiratory 19 18 Rate Respiratory Rate [Posterior ] Blood Pressure 107/53 Blood Pressure 113/68 [Right] O2 Sat by Pulse 99 Oximetry - Reevaluation(s) Reevaluation #1: 11/24/18 21:15 Differential diagnosis, including not limited to: GERD, gastritis, hiatal hernia, costochondritis, pneumonia, reactive airway disease, acute coronary syndrome Assessment and plan: 48-year-old female who is low risk by well's criteria, with no reported DVT or pulmonary embolus risk factors, who is low risk by TATE score, low risk by heart score, perc negative, d dimer negative with multiple ER evaluations for similar complaints, including chest wall pain, cough, wheezing, shortness of breath. When I walk into the room, the patient is speaking in full sentences on a cellular phone, and in no acute distress. She has reproducible chest wall tenderness, and very faint wheezing. EKG unchanged 2, and unchanged from prior EKG. Patient at low risk for major adverse cardiac event. She is allergic/intolerant of NSAIDs. We will treat her with albuterol, Atrovent, steroids, Pepcid, cristhian taminophen. Repeat troponin pending. No hypoxia, no tachycardia thus far in the emergency room. Reevaluation #2: 11/24/18 22:42 Patient reassessed multiple times while in the emergency department. She is playing on a cellular phone, and in no acute distress. Vital signs have remained stable. Her presentation today is quite similar to prior presentations. She is flower hospitaly suitable for discharge and outpatient follow-up at this point in time. ED Medical Decision Making - Lab Data Result diagrams: 11/24/18 18:56 11/24/18 18:56 Vital Signs 11/24/18 18:46 Temperature 97.9 F Pulse Rate 73 Respiratory 18 Rate Blood Pressure 124/82 O2 Sat by Pulse 97 Oximetry Lab Results 11/24/18 11/24/18 11/24/18 Range/Units 18:56 18:56 18:56 WBC 10.4 (4.5-11.0) K/mm3 RBC 4.97 (3.65-5.03) M/mm3 Hgb 13.4 (10.1-14.3) gm/dl Hct 41.0 (30.3-42.9) % MCV 83 (79-97) fl MCH 27 L (28-32) pg MCHC 33 (30-34) % RDW 16.3 H (13.2-15.2) % Plt Count 280 (140-440) K/mm3 Lymph % (Auto) 12.7 L (13.4-35.0) % [place] % (Auto) 6.4 (0.0-7.3) % Eos % (Auto) 2.8 (0.0-4.3) % Baso % (Auto) 0.5 (0.0-1.8) % Lymph # 1.3 (1.2-5.4) K/mm3 [place] # 0.7 (0.0-0.8) K/mm3 Eos # 0.3 (0.0-0.4) K/mm3 Baso # 0.0 (0.0-0.1) K/mm3 Seg Neutrophils % 77.6 H (40.0-70.0) % Seg Neutrophils # 8.1 H (1.8-7.7) K/mm3 PT 12.7 (12.2-14.9) Sec. INR 0.90 (0.87-1.13) APTT 29.2 (24.2-36.6) Sec. D-Dimer 172.13 (0-234) ng/mlDDU Sodium 142 (137-145) mmol/L Potassium 4.0 (3.6-5.0) mmol/L Chloride 104.9 (98-107) mmol/L Carbon Dioxide 28 (22-30) mmol/L Anion Gap 13 mmol/L BUN 12 (7-17) mg/dL Creatinine 0.9 (0.7-1.2) mg/dL Estimated GFR > 60 ml/min BUN/Creatinine Ratio 13 % Glucose 129 H (65-100) mg/dL Calcium 9.1 (8.4-10.2) mg/dL Total Bilirubin 0.20 (0.1-1.2) mg/dL AST 17 (5-40) units/L ALT 16 (7-56) units/L Alkaline Phosphatase 62 (35-129) units/L Troponin T < 0.010 (0.00-0.029) ng/mL Total Protein 6.6 (6.3-8.2) g/dL Albumin 4.0 (3.9-5) g/dL Albumin/Globulin Ratio 1.5 % Vital Signs 11/24/18 11/24/18 11/24/18 18:46 21:19 21:26 Temperature 97.9 F Pulse Rate 73 Pulse Rate [ 85 Posterior] Respiratory 18 10 L Rate Respiratory 18 Rate [Posterior ] Blood Pressure 124/82 Blood Pressure [Right] O2 Sat by Pulse 97 Oximetry 11/24/18 11/24/18 11/24/18 21:30 21:45 22:01 Temperature Pulse Rate 57 L 61 72 Pulse Rate [ Posterior] Respiratory 16 17 17 Rate Respiratory Rate [Posterior ] Blood Pressure 108/67 108/67 107/53 Blood Pressure [Right] O2 Sat by Pulse Oximetry 11/24/18 11/24/18 22:15 22:36 Temperature 97.9 F Pulse Rate 86 89 Pulse Rate [ Posterior] Respiratory 19 18 Rate Respiratory Rate [Posterior ] Blood Pressure 107/53 Blood Pressure 113/68 [Right] O2 Sat by Pulse 99 Oximetry - EKG Data -: EKG Interpreted by Me EKG shows normal: sinus rhythm Rate: normal - EKG Data When compared to previous EKG there are: no significant change Interpretation: unchanged when compared t 11/24/18 21:18 EKG #1 shows sinus, 69 beats per minutes, normal axis, normal intervals, low voltage in the anteroseptal leads, not consistent with ST elevation myocardial infarction, EKG #2 appears to be unchanged from prior, both EKGs appear to be unchanged from previous EKG from 08/31/2018. - Radiology Data Radiology results: report reviewed, image reviewed X-ray of the chest is negative for acute disease. Critical care attestation.: If time is entered above; I have spent that time in minutes in the direct care of this critically ill patient, excluding procedure time. ED Disposition Clinical Impression: Asthma, Chest wall pain Disposition: [id number] TO HOME OR SELFCARE Is pt being admited?: No Does the pt Need Aspirin: No Condition: Stable Instructions: Asthma (ED), Costochondritis (ED) Additional Instructions: Take medications as needed/directed. Advance diet as tolerated, and participate in physical activities as tolerated. Follow up with a dish up person to your primary care doctor for your chest wall pain within the next 3-5 days. Return to the emergency room right away with new, worsening or different symptoms. Prescriptions: Acetaminophen [Tylenol Arthritis] 650 mg PO Q6HR PRN #30 tablet.er PRN Reason: Pain ALBUTEROL Inhaler (OR & NICU) [ProAir HFA Inhaler] 2 puff IH QID PRN #1 inhalation PRN Reason: Shortness Of Breath ALBUTEROL NEB's [Proventil 0.083% NEBS] 2.5 mg IH TID PRN 30 Days nebu PRN Reason: Wheezing Benzonatate [Tessalon Perles] 100 mg PO Q8HR PRN #30 capsule PRN Reason: Cough Famotidine [Pepcid] 20 mg PO BID #10 tablet Fluticasone/Salmeterol [Advair 500-50 Diskus] 1 each PO BID #1 blst.w.dev Ipratropium [Atrovent NEB] 0.5 mg IH Q4HR #2 ml predniSONE [Deltasone] 40 mg PO QDAY #8 tab Referrals: SHON BRUNO MD [Primary Care Provider] - 3-5 Days [facility] [Provider Group] - 3-5 Days
[2018-11-24 22:37] VITALS: BP 113/68
== END 2018-11-24 23:07 | disposition home or self-care (01) ==
LOC: ED 18:11
DX: J45.909 Unspecified asthma, uncomplicated (principal); K21.9 Gastro-esophageal reflux disease without esophagitis; Z79.899 Other long term (current) drug therapy; Z98.51 Tubal ligation status; Z88.6 Allergy status to analgesic agent; Z88.8 Allergy status to other drugs, medicaments and biological substances; Z91.040 Latex allergy status; Z88.1 Allergy status to other antibiotic agents
CPT/HCPCS: 36415; 71046; 80053; 84484; 85025; 85379; 85610; 85730; 93005; 93010; 94640; 99284; J7512

== ENCOUNTER 2018-12-01 20:10 | Emergency (ER) | payer MEDICARE ==
--- NOTE | 2018-12-01 20:52 | Emergency Department Report ---
Blank Doc - Documentation Documentation: This is a 48-year-old female that presents with acute on chronic intermittent chest pain. Denies any SOB. Denies any radiation of chest pain. Patient was seen several days ago for same symptoms. Denies any F/U. Also has toothache and right earache. This initial assessment diagnostic orders/clinical plan/treatment(s) is/are subject to change based on patient's health status, clinical progression and re- assessment by fellow clinical providers in the ED. Further treatment and workup at subsequent clinical providers discretion. Patient/guardians urged not to elope from ED s their condition may be serious if not clinically assessed and managed. Initial orders include: 1-Patient sent to [facility] for further evaluation and treatment\ 2- labs 3- EKG 4- CXR
[2018-12-01 21:27] LABS: Basophils # (Auto) 0.1 K/mm3 (0.0-0.1); Basophils % (Auto) 0.6 % (0.0-1.8); Eosinophils # (Auto) 0.6 K/mm3 (0.0-0.4); Eosinophils % (Auto) 4.9 % (0.0-4.3); Hematocrit 40.5 % (30.3-42.9); Hemoglobin 13.2 gm/dl (10.1-14.3); Lymphocytes # (Auto) 2.5 K/mm3 (1.2-5.4); Mean Corpuscular HGB Conc 33 % (30-34); Mean Corpuscular Volume 83 fl (79-97); Monocytes # (Auto) 1.2 K/mm3 (0.0-0.8); Monocytes % (Auto) 9.5 % (0.0-7.3); Platelet Count 237 K/mm3 (140-440); Red Blood Count 4.86 M/mm3 (3.65-5.03)
[2018-12-01 22:31] LABS: Alanine Aminotransferase 16 units/L (7-56); Albumin 3.6 g/dL (3.9-5); BUN/Creatinine Ratio 18; Blood Urea Nitrogen 14 mg/dL (7-17); Calcium 8.4 mg/dL (8.4-10.2); Hemolysis Index 60
[2018-12-01] MEDS ORDERED: NORCO 5/325 PO ONE (22:54)
[2018-12-01] MEDS ORDERED: ZOFRAN ODT PO ONE (22:54)
--- NOTE | 2018-12-01 23:12 | XRay Report ---
FINAL REPORT PROCEDURE: XR CHEST 1V AP TECHNIQUE: Chest radiograph anteroposterior view. CPT 48625 HISTORY: Chest Pain COMPARISON: No prior studies are available for comparison. FINDINGS: Heart: Normal. Mediastinum/Vessels: Normal. Lungs/Pleural space: Lungs are hyperinflated. There are no infiltrates or mass lesions. Pleural space s are clear.. Bony thorax: No acute osseous abnormality. Life support devices: None. IMPRESSION: No acute infiltrates Hyperinflated lungs.
[2018-12-01 23:35] VITALS: BP 110/66
--- NOTE | 2018-12-01 23:50 | Emergency Department Report ---
ED General Adult HPI - General Chief complaint: Chest Pain Stated complaint: CHEST/HEAD/TOOTACHE Time Seen by Provider: 12/01/18 20:52 Source: patient Mode of arrival: Ambulatory Limitations: No Limitations - History of Present Illness Initial comments: Patient is 48 years old female with history of asthma. Patient presented to the ER with 2 complaints. First patient stated that she's been having trouble with toothache for the last 2 weeks. She also stated that she's been having some chest pain, sharp in nature associated with shortness of breath and wheezing. Patient denied any fever or chills. Severity scale (0 -10): 10 - Related Data Home Medications Medication Instructions Recorded Confirmed Last Taken Cetirizine HCl [Zyrtec] 10 mg PO DAILY 03/27/18 08/31/18 08/30/18 Levothyroxine 1 tab PO DAILY 08/31/18 08/31/18 08/30/18 Ranitidine HCl 75 mg PO DAILY 08/31/18 08/31/18 08/30/18 Previous Rx's Medication Instructions Recorded Last Taken Type Prednisone [predniSONE 10 mg 10 mg PO .TAPER #1 tab.ds.pk 06/30/18 08/30/18 Rx (6-Day Pack, 21 Tabs)] medroxyPROGESTERone ACETATE 10 mg PO DAILY #10 tablet 07/04/18 08/30/18 Rx [Provera] Albuterol Sulfate [Proair 90 mcg IH Q4HR PRN #2 aer.pow.ba 08/31/18 Unknown Rx Respiclick] Ipratropium [place] [Atrovent Hfa] 12.9 gm IH Q4HR #2 hfa.aer.ad 08/31/18 Unknown Rx predniSONE [Deltasone] 50 mg PO QDAY #5 tab 09/06/18 Unknown Rx ALBUTEROL Inhaler (OR & NICU) 2 puff IH QID PRN #1 inhalation 10/04/18 Unknown Rx [Proair] Albuterol Sulfate [Albuterol 0.63% 0.63 mg IH TID PRN #90 ml 10/04/18 Unknown Rx NEBS] Prednisone [predniSONE 10 mg 10 mg PO .TAPER #1 tab.ds.pk 10/04/18 Unknown Rx (6-Day Pack, 21 Tabs)] Prednisone [predniSONE 10 mg 10 mg PO .TAPER #1 tab.ds.pk 10/19/18 Unknown Rx (6-Day Pack, 21 Tabs)] diphenhydrAMINE [Benadryl CAP] 25 mg PO Q6HR PRN #20 capsule 10/19/18 Unknown Rx Acetaminophen [Tylenol Arthritis] 650 mg PO Q6HR PRN #30 tablet.er 11/15/18 Unknown Rx Albuterol Sulfate [Albuterol 0.63% 0.63 mg IH Q4HR PRN #2 ml 11/15/18 Unknown Rx NEBS] Albuterol Sulfate [Proair 90 mcg IH Q4HR PRN #2 aer.pow.ba 11/15/18 Unknown Rx Respiclick] predniSONE [Deltasone] 40 mg PO QDAY #8 tab 11/15/18 Unknown Rx ALBUTEROL Inhaler (OR & NICU) 2 puff IH QID PRN #1 inhalation 11/24/18 Unknown Rx [ProAir HFA Inhaler] ALBUTEROL NEB's [Proventil 0.083% 2.5 mg IH TID PRN 30 Days nebu 11/24/18 Unknown Rx NEBS] Acetaminophen [Tylenol Arthritis] 650 mg PO Q6HR PRN #30 tablet.er 11/24/18 Unknown Rx Benzonatate [Tessalon Perles] 100 mg PO Q8HR PRN #30 capsule 11/24/18 Unknown Rx Famotidine [Pepcid] 20 mg PO BID #10 tablet 11/24/18 Unknown Rx Fluticasone/Salmeterol [Advair 1 each PO BID #1 blst.w.dev 11/24/18 Unknown Rx 500-50 Diskus] Ipratropium [Atrovent NEB] 0.5 mg IH Q4HR #2 ml 11/24/18 Unknown Rx predniSONE [Deltasone] 40 mg PO QDAY #8 tab 11/24/18 Unknown Rx Allergies Allergy/AdvReac Type Severity Reaction Status Date / Time doxycycline Allergy Rash Verified 07/04/18 11:09 ketorolac tromethamine Allergy Anaphylaxis Verified 07/04/18 11:09 [From Toradol] Latex, Natural Rubber Allergy Angioedema Verified 07/04/18 11:09 morphine Allergy Shortness Verified 07/04/18 11:09 of Breath azithromycin [From Zithromax] AdvReac Anaphylaxis Verified 07/04/18 11:09 NSAIDS (Non-Steroidal AdvReac Anaphylaxis Verified 07/04/18 11:09 Anti-Inflamma Penicillins AdvReac Hives Verified 07/04/18 11:09 ED Review of Systems ROS: Stated complaint: CHEST/HEAD/TOOTACHE Other details as noted in HPI Comment: All other systems reviewed and negative Constitutional: denies: chills, fever Respiratory: shortness of breath, SOB with exertion, wheezing. denies: cough, orthopnea, SOB at rest Cardiovascular: chest pain. denies: palpitations, dyspnea on exertion Gastrointestinal: denies: abdominal pain, nausea, vomiting, diarrhea, constipation, hematemesis, hematochezia Musculoskeletal: denies: back pain ED Past Medical Hx - Past Medical History Hx Hypertension: No Hx Heart Attack/AMI: No Hx Congestive Heart Failure: No Hx Diabetes: No Hx Deep Vein Thrombosis: No Hx Pulmonary Embolism: No Hx GERD: Yes Hx Liver Disease: No Hx Renal Disease: No Hx Sickle Cell Disease: No Hx Arthritis: No Hx Seizures: No Hx Kidney Stones: No Hx Asthma: Yes Hx COPD: No Hx Tuberculosis: No Hx Dementia: No Hx HIV: No Additional medical history: sinus problems --chronic sinusitis /ABD HERNIA REPAIRED. Prior Intubations x3. Obesity. - Surgical History Hx Coronary Stent: No Hx Open Heart Surgery: No Hx Pacemaker: No Hx Internal Defibrillator: No Hx Cholecystectomy: No Hx Appendectomy: No Hx Breast Surgery: No Additional Surgical History: x4, umbilical hernia repair, sinus surgeries, D&C. thyroid removal. tubiligation - Social History Smoking Status: Never Smoker Substance Use Type: None - Medications Home Medications: Home Medications Medication Instructions Recorded Confirmed Last Taken Type Cetirizine HCl [Zyrtec] 10 mg PO DAILY 03/27/18 08/31/18 08/30/18 History Prednisone [predniSONE 10 mg 10 mg PO .TAPER #1 tab.ds.pk 06/30/18 08/31/18 08/30/18 Rx (6-Day Pack, 21 Tabs)] medroxyPROGESTERone ACETATE 10 mg PO DAILY #10 tablet 07/04/18 08/31/18 08/30/18 Rx [Provera] Albuterol Sulfate [Proair 90 mcg IH Q4HR PRN #2 aer.pow.ba 08/31/18 Unknown Rx Respiclick] Ipratropium [place] [Atrovent Hfa] 12.9 gm IH Q4HR #2 hfa.aer.ad 08/31/18 Unknown Rx Levothyroxine 1 tab PO DAILY 08/31/18 08/31/18 08/30/18 History Ranitidine HCl 75 mg PO DAILY 08/31/18 08/31/18 08/30/18 History predniSONE [Deltasone] 50 mg PO QDAY #5 tab 09/06/18 Unknown Rx ALBUTEROL Inhaler (OR & NICU) 2 puff IH QID PRN #1 inhalation 10/04/18 Unknown Rx [Proair] Albuterol Sulfate [Albuterol 0.63% 0.63 mg IH TID PRN #90 ml 10/04/18 Unknown Rx NEBS] Prednisone [predniSONE 10 mg 10 mg PO .TAPER #1 tab.ds.pk 10/04/18 Unknown Rx (6-Day Pack, 21 Tabs)] Prednisone [predniSONE 10 mg 10 mg PO .TAPER #1 tab.ds.pk 10/19/18 Unknown Rx (6-Day Pack, 21 Tabs)] diphenhydrAMINE [Benadryl CAP] 25 mg PO Q6HR PRN #20 capsule 10/19/18 Unknown R x Acetaminophen [Tylenol Arthritis] 650 mg PO Q6HR PRN #30 tablet.er 11/15/18 Unknown Rx Albuterol Sulfate [Albuterol 0.63% 0.63 mg IH Q4HR PRN #2 ml 11/15/18 Unknown Rx NEBS] Albuterol Sulfate [Proair 90 mcg IH Q4HR PRN #2 aer.pow.ba 11/15/18 Unknown Rx Respiclick] predniSONE [Deltasone] 40 mg PO QDAY #8 tab 11/15/18 Unknown Rx ALBUTEROL Inhaler (OR & NICU) 2 puff IH QID PRN #1 inhalation 11/24/18 Unknown Rx [ProAir HFA Inhaler] ALBUTEROL NEB's [Proventil 0.083% 2.5 mg IH TID PRN 30 Days nebu 11/24/18 Unknown Rx NEBS] Acetaminophen [Tylenol Arthritis] 650 mg PO Q6HR PRN #30 tablet.er 11/24/18 Unknown Rx Benzonatate [Tessalon Perles] 100 mg PO Q8HR PRN #30 capsule 11/24/18 Unknown Rx Famotidine [Pepcid] 20 mg PO BID #10 tablet 11/24/18 Unknown Rx Fluticasone/Salmeterol [Advair 1 each PO BID #1 blst.w.dev 11/24/18 Unknown Rx 500-50 Diskus] Ipratropium [Atrovent NEB] 0.5 mg IH Q4HR #2 ml 11/24/18 Unknown Rx predniSONE [Deltasone] 40 mg PO QDAY #8 tab 11/24/18 Unknown Rx ED Physical Exam - General Limitations: No Limitations General appearance: alert, in no apparent distress - Head Head exam: Present: atraumatic, normocephalic, normal inspection - Eye Eye exam: Present: normal appearance - ENT ENT exam: Present: normal exam, normal orophraynx, mucous membranes moist, other (dental caries) - Neck Neck exam: Present: normal inspection, full ROM. Absent: tenderness, meningismus, lymphadenopathy, thyromegaly - Respiratory Respiratory exam: Present: normal lung sounds bilaterally. Absent: respiratory distress, wheezes, rales, rhonchi, chest wall tenderness, accessory muscle use, decreased breath sounds, prolonged expiratory - Cardiovascular Cardiovascular Exam: Present: regular rate, normal rhythm, normal heart sounds - GI/Abdominal GI/Abdominal exam: Present: soft, normal bowel sounds. Absent: distended, tenderness, guarding, rebound, rigid - Extremities Exam Extremities exam: Present: normal inspection, full ROM, normal capillary refill. Absent: pedal edema, calf tenderness - Back Exam Back exam: Present: normal inspection, full ROM. Absent: CVA tenderness (R), CVA tenderness (L) - Neurological Exam Neurological exam: Present: alert, oriented X3, CN II-XII intact, normal gait, reflexes normal - Skin Skin exam: Present: warm, intact, normal color ED Course Vital Signs 12/01/18 12/01/18 12/01/18 20:22 20:54 22:16 Temperature 98.8 F 98.8 F Pulse Rate 89 89 Respiratory 18 18 13 Rate Blood Pressure 136/91 136/91 O2 Sat by Pulse 97 97 98 Oximetry 12/01/18 12/01/18 12/01/18 22:26 22:30 22:45 Temperature Pulse Rate 80 78 Respiratory 16 16 16 Rate Blood Pressure 134/80 134/80 O2 Sat by Pulse 98 99 99 Oximetry 12/01/18 12/01/18 12/01/18 23:00 23:15 23:30 Temperature Pulse Rate 79 84 68 Respiratory 12 14 13 Rate Blood Pressure 121/84 121/84 110/66 O2 Sat by Pulse 100 100 98 Oximetry ED Medical Decision Making - Lab Data Result diagrams: 12/01/18 21:08 12/01/18 21:07 - EKG Data -: EKG Interpreted by [place] EKG shows normal: sinus rhythm Rate: normal - EKG Data Interpretation: no acute changes - Radiology Data Radiology results: report reviewed Referring Physician: RAUDEL DUQUE Patient Name: DAHIANA GERMAN Date of : 1970 Sex: Female Report Date: 2018-12-01 Report Status: Finalized Findings [facility] [address] [place] [address] XRay Report Signed Patient: DAHIANA GERMAN MR#: [id number] : 1970 Acct:[id number] Age/Sex: 48 / F ADM Date: 12/01/18 Loc: ED Attending Dr: Ordering Physician: RAUDEL DUQUE NP Date of Service: 12/01/18 Procedure(s): XR chest 1V ap Accession Number(s): [id number] cc: RAUDEL DUQUE NP Fluoro Time In Minutes: FINAL REPORT PROCEDURE: XR CHEST 1V AP TECHNIQUE: Chest radiograph anteroposterior view. CPT 94369 HISTORY: Chest Pain COMPARISON: No prior studies are available for comparison. FINDINGS: Heart: Normal. Mediastinum/Vessels: Normal. Lungs/Pleural space: Lungs are hyperinflated. There are no infiltrates or mass lesions. Pleural spaces are clear.. Bony thorax: No acute osseous abnormality. Life support devices: None. IMPRESSION: No acute infiltrates Hyperinflated lungs. Transcribed By: [facility] [place] By: WANG HERRON Electronically Authenticated By: WANG HERRON Signed Date/Time: 12/01/182311 DD/ 09 TD/TT: 12/01/182309 Critical care attestation.: If time is entered above; I have spent that time in minutes in the direct care of this critically ill patient, excluding procedure time. ED Disposition Clinical Impression: Atypical chest pain, Dental caries Disposition: TO HOME OR SELFCARE Is pt being admited?: No Condition: Stable Instructions: Chest Pain (ED), Dental Abscess (ED) Referrals: MARISOL BEARD MD [Primary Care Provider] - 3-5 Days
== END 2018-12-02 00:12 | disposition home or self-care (01) ==
LOC: ED 20:10
DX: K02.9 Dental caries, unspecified (principal); R07.89 Other chest pain; K21.9 Gastro-esophageal reflux disease without esophagitis; J45.909 Unspecified asthma, uncomplicated; Z88.5 Allergy status to narcotic agent; Z88.1 Allergy status to other antibiotic agents; Z88.0 Allergy status to penicillin; Z88.6 Allergy status to analgesic agent; Z91.040 Latex allergy status
CPT/HCPCS: 36415; 71045; 80053; 84484; 85025; 93005; 93010; Q0162

== ENCOUNTER 2018-12-16 23:09 | Emergency (ER) | payer MEDICARE ==
[2018-12-17] MEDS ORDERED: DUONEB *Not for PRN Use IH ONE ×2 (00:32→03:44)
--- NOTE | 2018-12-17 01:31 | XRay Report ---
PROCEDURE: XR CHEST 1V AP HISTORY: SOB FINDINGS: Single frontal view of the chest was acquired and compared to the prior examination of November 15. The heart is normal in size. The lungs appear clear. The pleura and mediastinum are within normal miner its. IMPRESSION: No active disease in the chest This document is electronically signed by Neymar Petty MD., December 17 2018 01:29:24 AM ET
[2018-12-17] MEDS ORDERED: SOLU-Medrol IM ONE (03:44)
--- NOTE | 2018-12-17 04:00 | Emergency Department Report ---
- General Chief Complaint: Dyspnea/Respdistress Stated Complaint: ASTHMA Time Seen by Provider: 12/17/18 03:20 Source: patient Mode of arrival: Ambulatory Limitations: No Limitations - History of Present Illness Initial Comments: This is a 48-year-old female with a history of asthma who presents a knee with asthma flare. Patient states she is a symptoms couple of days now. Patient states she is unable to use her inhaler at home. Patient also has made small productive cough. She denies fevers/chills/nausea vomiting/chest pain/shortness of breath. - Related Data Home Medications Medication Instructions Recorded Confirmed Last Taken Cetirizine HCl [Zyrtec] 10 mg PO DAILY 03/27/18 08/31/18 08/30/18 Levothyroxine 1 tab PO DAILY 08/31/18 08/31/18 08/30/18 Ranitidine HCl 75 mg PO DAILY 08/31/18 08/31/18 08/30/18 Previous Rx's Medication Instructions Recorded Last Taken Type Prednisone [predniSONE 10 mg 10 mg PO .TAPER #1 tab.ds.pk 06/30/18 08/30/18 Rx (6-Day Pack, 21 Tabs)] medroxyPROGESTERone ACETATE 10 mg PO DAILY #10 tablet 07/04/18 08/30/18 Rx [Provera] Ipratropium [place] [Atrovent Hfa] 12.9 gm IH Q4HR #2 hfa.aer.ad 08/31/18 Unknown Rx predniSONE [Deltasone] 50 mg PO QDAY #5 tab 09/06/18 Unknown Rx Albuterol Sulfate [Albuterol 0.63% 0.63 mg IH TID PRN #90 ml 10/04/18 Unknown Rx NEBS] Prednisone [predniSONE 10 mg 10 mg PO .TAPER #1 tab.ds.pk 10/04/18 Unknown Rx (6-Day Pack, 21 Tabs)] Prednisone [predniSONE 10 mg 10 mg PO .TAPER #1 tab.ds.pk 10/19/18 Unknown Rx (6-Day Pack, 21 Tabs)] diphenhydrAMINE [Benadryl CAP] 25 mg PO Q6HR PRN #20 capsule 10/19/18 Unknown Rx Acetaminophen [Tylenol Arthritis] 650 mg PO Q6HR PRN #30 tablet.er 11/15/18 Unknown Rx Albuterol Sulfate [Albuterol 0.63% 0.63 mg IH Q4HR PRN #2 ml 11/15/18 Unknown Rx NEBS] Albuterol Sulfate [Proair 90 mcg IH Q4HR PRN #2 aer.pow.ba 11/15/18 Unknown Rx Respiclick] predniSONE [Deltasone] 40 mg PO QDAY #8 tab 11/15/18 Unknown Rx ALBUTEROL Inhaler (OR & NICU) 2 puff IH QID PRN #1 inhalation 11/24/18 Unknown Rx [ProAir HFA Inhaler] ALBUTEROL NEB's [Proventil 0.083% 2.5 mg IH TID PRN 30 Days nebu 11/24/18 Unknown Rx NEBS] Acetaminophen [Tylenol Arthritis] 650 mg PO Q6HR PRN #30 tablet.er 11/24/18 Unknown Rx Famotidine [Pepcid] 20 mg PO BID #10 tablet 11/24/18 Unknown Rx Fluticasone/Salmeterol [Advair 1 each PO BID #1 blst.w.dev 11/24/18 Unknown Rx 500-50 Diskus] Ipratropium [Atrovent NEB] 0.5 mg IH Q4HR #2 ml 11/24/18 Unknown Rx predniSONE [Deltasone] 40 mg PO QDAY #8 tab 11/24/18 Unknown Rx Clindamycin [Clindamycin CAP] 300 mg PO Q8H #21 cap 12/01/18 Unknown Rx HYDROcodone/APAP 5-325 [[place] 1 each PO Q6HR PRN #10 tablet 12/01/18 Unknown Rx 5/325] Ondansetron [Zofran Odt] 4 mg PO Q8HR PRN #14 tab.rapdis 12/01/18 Unknown Rx ALBUTEROL Inhaler (OR & NICU) 2 puff IH QID PRN #1 inhalation 12/17/18 Unknown Rx [ProAir HFA Inhaler] Albuterol Sulfate [Proair 90 mcg IH Q4HR PRN #2 aer.pow.ba 12/17/18 Unknown Rx Respiclick] Benzonatate [Tessalon Perles] 100 mg PO Q8HR PRN #30 capsule 12/17/18 Unknown Rx Allergies Allergy/AdvReac Type Severity Reaction Status Date / Time doxycycline Allergy Rash Verified 07/04/18 11:09 ketorolac tromethamine Allergy Anaphylaxis Verified 07/04/18 11:09 [From Toradol] Latex, Natural Rubber Allergy Angioedema Verified 07/04/18 11:09 morphine Allergy Shortness Verified 07/04/18 11:09 of Breath azithromycin [From Zithromax] AdvReac Anaphylaxis Verified 07/04/18 11:09 NSAIDS (Non-Steroidal AdvReac Anaphylaxis Verified 07/04/18 11:09 Anti-Inflamma Penicillins AdvReac Hives Verified 07/04/18 11:09 ED Review of Systems ROS: Stated complaint: ASTHMA Other details as noted in HPI Comment: All other systems reviewed and negative ED Past Medical Hx - Past Medical History Previous Medical History?: Yes Hx Hypertension: No Hx Heart Attack/AMI: No Hx Congestive Heart Failure: No Hx Diabetes: No Hx Deep Vein Thrombosis: No Hx Pulmonary Embolism: No Hx GERD: Yes Hx Liver Disease: No Hx Renal Disease: No Hx Sickle Cell Disease: No Hx Arthritis: No Hx Seizures: No Hx Kidney Stones: No Hx Asthma: Yes Hx COPD: No Hx Tuberculosis: No Hx Dementia: No Hx HIV: No Additional medical history: sinus problems --chronic sinusitis /ABD HERNIA REPAIRED. Prior Intubations x3. Obesity. - Surgical History Past Surgical History?: Yes Hx Coronary Stent: No Hx Open Heart Surgery: No Hx Pacemaker: No Hx Internal Defibrillator: No Hx Cholecystectomy: No Hx Appendectomy: No Hx Breast Surgery: No Additional Surgical History: x4, umbilical hernia repair, sinus surgeries, D&C. thyroid removal. tubiligation - Social History Smoking Status: Never Smoker Substance Use Type: None - Medications Home Medications: Home Medications Medication Instructions Recorded Confirmed Last Taken Type Cetirizine HCl [Zyrtec] 10 mg PO DAILY 03/27/18 08/31/18 08/30/18 History Prednisone [predniSONE 10 mg 10 mg PO .TAPER #1 tab.ds.pk 06/30/18 08/31/18 08/30/18 Rx (6-Day Pack, 21 Tabs)] medroxyPROGESTERone ACETATE 10 mg PO DAILY #10 tablet 07/04/18 08/31/18 08/30/18 Rx [Provera] Ipratropium [place] [Atrovent Hfa] 12.9 gm IH Q4HR #2 hfa.aer.ad 08/31/18 Unknown Rx Levothyroxine 1 tab PO DAILY 08/31/18 08/31/18 08/30/18 History Ranitidine HCl 75 mg PO DAILY 08/31/18 08/31/18 08/30/18 History predniSONE [Deltasone] 50 mg PO QDAY #5 tab 09/06/18 Unknown Rx Albuterol Sulfate [Albuterol 0.63% 0.63 mg IH TID PRN #90 ml 10/04/18 Unknown Rx NEBS] Prednisone [predniSONE 10 mg 10 mg PO .TAPER #1 tab.ds.pk 10/04/18 Unknown Rx (6-Day Pack, 21 Tabs)] Prednisone [predniSONE 10 mg 10 mg PO .TAPER #1 tab.ds.pk 10/19/18 Unknown Rx (6-Day Pack, 21 Tabs)] diphenhydrAMINE [Benadryl CAP] 25 mg PO Q6HR PRN #20 capsule 10/19/18 Unknown Rx Acetaminophen [Tylenol Arthritis] 650 mg PO Q6HR PRN #30 tablet.er 11/15/18 Unknown Rx Albuterol Sulfate [Albuterol 0.63% 0.63 mg IH Q4HR PRN #2 ml 11/15/18 Unknown Rx NEBS] Albuterol Sulfate [Proair 90 mcg IH Q4HR PRN #2 aer.pow.ba 11/15/18 Unknown Rx Respiclick] predniSONE [Deltasone] 40 mg PO QDAY #8 tab 11/15/18 Unknown Rx ALBUTEROL Inhaler (OR & NICU) 2 puff IH QID PRN #1 inhalation 11/24/18 Unknown Rx [ProAir HFA Inhaler] ALBUTEROL NEB's [Proventil 0.083% 2.5 mg IH TID PRN 30 Days nebu 11/24/18 Unknown Rx NEBS] Acetaminophen [Tylenol Arthritis] 650 mg PO Q6HR PRN #30 tablet.er 11/24/18 Unknown Rx Famotidine [Pepcid] 20 mg PO BID #10 tablet 11/24/18 Unknown Rx Fluticasone/Salmeterol [Advair 1 each PO BID #1 blst.w.dev 11/24/18 Unknown Rx 500-50 Diskus] Ipratropium [Atrovent NEB] 0.5 mg IH Q4HR #2 ml 11/24/18 Unknown Rx predniSONE [Deltasone] 40 mg PO QDAY #8 tab 11/24/18 Unknown Rx Clindamycin [Clindamycin CAP] 300 mg PO Q8H #21 cap 12/01/18 Unknown Rx HYDROcodone/APAP 5-325 [[place] 1 each PO Q6HR PRN #10 tablet 12/01/18 Unknown Rx 5/325] Ondansetron [Zofran Odt] 4 mg PO Q8HR PRN #14 tab.rapdis 12/01/18 Unknown Rx ALBUTEROL Inhaler (OR & NICU) 2 puff IH QID PRN #1 inhalation 12/17/18 Unknown Rx [ProAir HFA Inhaler] Albuterol Sulfate [Proair 90 mcg IH Q4HR PRN #2 aer.pow.ba 12/17/18 Unknown Rx Respiclick] Benzonatate [Tessalon Perles] 100 mg PO Q8HR PRN #30 capsule 12/17/18 Unknown Rx ED Physical Exam - General Limitations: No Limitations General appearance: alert, in no apparent distress - Head Head exam: Present: atraumatic, normocephalic - Eye Eye exam: Present: normal appearance - ENT ENT exam: Present: mucous membranes moist - Neck Neck exam: Present: normal inspection - Respiratory Respiratory exam: Present: normal lung sounds bilaterally. Absent: respiratory distress - Cardiovascular Cardiovascular Exam: Present: regular rate, normal rhythm. Absent: systolic murmur, diastolic murmur, rubs, gallop - GI/Abdominal GI/Abdominal exam: Present: soft, normal bowel sounds - Extremities Exam Extremities exam: Present: normal inspection - Back Exam Back exam: Present: normal inspection - Neurological Exam Neurological exam: Present: alert, oriented X3 - Psychiatric Psychiatric exam: Present: normal affect, normal mood - Skin Skin exam: Present: warm, dry, intact, normal color. Absent: rash ED Course Vital Signs 12/17/18 00:19 Temperature 98 F Pulse Rate 83 Respiratory 16 Rate Blood Pressure 99/73 O2 Sat by Pulse 95 Oximetry ED Medical Decision Making - Radiology Data Radiology results: report reviewed, image reviewed - Medical Decision Making 48-year-old female presents with asthma exacerbation (Mild) ED course: Patient received 2 breathing treatment, prednisone in the ED. Chest x-ray ordered, chest x-ray shows no acute findings. Patient had no respiratory distress in the ED. Post treatment evaluation: No wheezing heard, no use of accessory muscles, I discussed with the patient to follow up with her primary care physician. I discussed with the patient will be going home on with albuterol inhaler as well as nebulizer Vital signs are normalized, patient is saturation at 99% on room air. I discussed with the patient is symptoms worsen to return to ED immediately. . Critical care attestation.: If time is entered above; I have spent that time in minutes in the direct care of this critically ill patient, excluding procedure time. ED Disposition Clinical Impression: Asthma exacerbation Disposition: DC- TO HOME OR SELFCARE Is pt being admited?: No Does the pt Need Aspirin: No Condition: Stable Instructions: Asthma (ED) Additional Instructions: Make sure to follow up with the primary care physician as discussed. Take all your medications as you've been prescribed. If you have any worsening symptoms or develop new symptoms please return to ED immediately. Prescriptions: ALBUTEROL Inhaler (OR & NICU) [ProAir HFA Inhaler] 2 puff IH QID PRN #1 inhalation PRN Reason: Shortness Of Breath Albuterol Sulfate [Proair Respiclick] 90 mcg IH Q4HR PRN #2 aer.pow.ba PRN Reason: Wheezing Benzonatate [Tessalon Perles] 100 mg PO Q8HR PRN #30 capsule PRN Reason: Cough Referrals: MARISOL BEARD MD [Primary Care Provider] - 3-5 Days Forms: Accompanied Note, Work/School Release Form(ED) Time of Disposition: 04:40
[2018-12-17 05:16] VITALS: BP 111/56
== END 2018-12-17 05:00 | disposition home or self-care (01) ==
LOC: ED 23:09
DX: J45.901 Unspecified asthma with (acute) exacerbation (principal); K21.9 Gastro-esophageal reflux disease without esophagitis
CPT/HCPCS: 71045; 94640; 96372; 99283; J2930

== ENCOUNTER 2018-12-21 01:21 | Emergency (ER) | payer MEDICARE ==
[2018-12-21] MEDS ORDERED: DELTASONE PO ONE (02:35)
[2018-12-21] MEDS ORDERED: TYLENOL PO ONE (02:35)
[2018-12-21] MEDS ORDERED: DUONEB *Not for PRN Use IH ONE (02:35)
--- NOTE | 2018-12-21 02:43 | Emergency Department Report ---
ED Chest Pain HPI - General Chief Complaint: Dyspnea/Respdistress Stated Complaint: SILVIANO Time Seen by Provider: 12/21/18 02:30 Source: EMS Mode of arrival: Ambulatory Limitations: No Limitations - History of Present Illness Initial Comments: Ms. Young is a 48 yo female wit hx of asthma, GERD, recurrent chest pain who presents via EMS for asthma attack pain since Saturday. +wheezing and shortness of breath. Has had mild chest pain, attributed to GERD. Wants to know if ranitidine is safe. Desires Magnesium and solumedrol. MD Complaint: chest pain -: Gradual, days(s) (2) Onset: during rest Pain Location: substernal Severity: mild Severity scale (0 -10): 5 Quality: sharp Consistency: constant Worsens With: supine, palpation - Related Data Home Medications Medication Instructions Recorded Confirmed Last Taken Cetirizine HCl [Zyrtec] 10 mg PO DAILY 03/27/18 08/31/18 08/30/18 Levothyroxine 1 tab PO DAILY 08/31/18 08/31/18 08/30/18 Ranitidine HCl 75 mg PO DAILY 08/31/18 08/31/18 08/30/18 Previous Rx's Medication Instructions Recorded Last Taken Type Prednisone [predniSONE 10 mg 10 mg PO .TAPER #1 tab.ds.pk 06/30/18 08/30/18 Rx (6-Day Pack, 21 Tabs)] medroxyPROGESTERone ACETATE 10 mg PO DAILY #10 tablet 07/04/18 08/30/18 Rx [Provera] Ipratropium Luther [Atrovent Hfa] 12.9 gm IH Q4HR #2 hfa.aer.ad 08/31/18 Unknown Rx predniSONE [Deltasone] 50 mg PO QDAY #5 tab 09/06/18 Unknown Rx Albuterol Sulfate [Albuterol 0.63% 0.63 mg IH TID PRN #90 ml 10/04/18 Unknown Rx NEBS] Prednisone [predniSONE 10 mg 10 mg PO .TAPER #1 tab.ds.pk 10/04/18 Unknown Rx (6-Day Pack, 21 Tabs)] Prednisone [predniSONE 10 mg 10 mg PO .TAPER #1 tab.ds.pk 10/19/18 Unknown Rx (6-Day Pack, 21 Tabs)] diphenhydrAMINE [Benadryl CAP] 25 mg PO Q6HR PRN #20 capsule 10/19/18 Unknown Rx Acetaminophen [Tylenol Arthritis] 650 mg PO Q6HR PRN #30 tablet.er 11/15/18 Unknown Rx Albuterol Sulfate [Albuterol 0.63% 0.63 mg IH Q4HR PRN #2 ml 11/15/18 Unknown Rx NEBS] Albuterol Sulfate [Proair 90 mcg IH Q4HR PRN #2 aer.pow.ba 11/15/18 Unknown Rx Respiclick] predniSONE [Deltasone] 40 mg PO QDAY #8 tab 11/15/18 Unknown Rx ALBUTEROL Inhaler (OR & NICU) 2 puff IH QID PRN #1 inhalation 11/24/18 Unknown Rx [ProAir HFA Inhaler] Acetaminophen [Tylenol Arthritis] 650 mg PO Q6HR PRN #30 tablet.er 11/24/18 Unknown Rx Famotidine [Pepcid] 20 mg PO BID #10 tablet 11/24/18 Unknown Rx Fluticasone/Salmeterol [Advair 1 each PO BID #1 blst.w.dev 11/24/18 Unknown Rx 500-50 Diskus] Ipratropium [Atrovent NEB] 0.5 mg IH Q4HR #2 ml 11/24/18 Unknown Rx predniSONE [Deltasone] 40 mg PO QDAY #8 tab 11/24/18 Unknown Rx Clindamycin [Clindamycin CAP] 300 mg PO Q8H #21 cap 12/01/18 Unknown Rx HYDROcodone/APAP 5-325 [[place] 1 each PO Q6HR PRN #10 tablet 12/01/18 Unknown Rx 5/325] Ondansetron [Zofran Odt] 4 mg PO Q8HR PRN #14 tab.rapdis 12/01/18 Unknown Rx ALBUTEROL Inhaler (OR & NICU) 2 puff IH QID PRN #1 inhalation 12/17/18 Unknown Rx [ProAir HFA Inhaler] ALBUTEROL NEB's [Proventil 0.083% 2.5 mg IH TID PRN 30 Days nebu 12/17/18 Unknown Rx NEBS] Albuterol Sulfate [Proair 90 mcg IH Q4HR PRN #2 aer.pow.ba 12/17/18 Unknown Rx Respiclick] Benzonatate [Tessalon Perles] 100 mg PO Q8HR PRN #30 capsule 12/17/18 Unknown Rx Prednisone [predniSONE 10 mg 10 mg PO .TAPER #1 tab.ds.pk 12/21/18 Unknown Rx (6-Day Pack, 21 Tabs)] Allergies Allergy/AdvReac Type Severity Reaction Status Date / Time doxycycline Allergy Rash Verified 07/04/18 11:09 ketorolac tromethamine Allergy Anaphylaxis Verified 07/04/18 11:09 [From Toradol] Latex, Natural Rubber Allergy Angioedema Verified 07/04/18 11:09 morphine Allergy Shortness Verified 07/04/18 11:09 of Breath azithromycin [From Zithromax] AdvReac Anaphylaxis Verified 07/04/18 11:09 NSAIDS (Non-Steroidal AdvReac Anaphylaxis Verified 07/04/18 11:09 Anti-Inflamma Penicillins AdvReac Hives Verified 07/04/18 11:09 Heart Score - HEART Score History: Slightly suspicious EKG: Normal Age: < 45 Risk factors: 1-2 risk factors Troponin: < normal limit HEART Score: 1 ED Review of Systems ROS: Stated complaint: SILVIANO Other details as noted in HPI Comment: All other systems reviewed and negative Constitutional: fever. denies: malaise Respiratory: cough, shortness of breath, wheezing Cardiovascular: chest pain ED Past Medical Hx - Past Medical History Previous Medical History?: Yes Hx Hypertension: No Hx Heart Attack/AMI: No Hx Congestive Heart Failure: No Hx Diabetes: No Hx Deep Vein Thrombosis: No Hx Pulmonary Embolism: No Hx GERD: Yes Hx Liver Disease: No Hx Renal Disease: No Hx Sickle Cell Disease: No Hx Arthritis: No Hx Seizures: No Hx Kidney Stones: No Hx Asthma: Yes Hx COPD: No Hx Tuberculosis: No Hx Dementia: No Hx HIV: No Additional medical history: sinus problems --chronic sinusitis /ABD HERNIA REPAIRED. Prior Intubations x3. Obesity. - Surgical History Hx Coronary Stent: No Hx Open Heart Surgery: No Hx Pacemaker: No Hx Internal Defibrillator: No Hx Cholecystectomy: No Hx Appendectomy: No Hx Breast Surgery: No Additional Surgical History: x4, umbilical hernia repair, sinus surgeries, D&C. thyroid removal. tubiligation - Social History Smoking Status: Unknown if ever smoked Substance Use Type: None - Medications Home Medications: Home Medications Medication Instructions Recorded Confirmed Last Taken Type Cetirizine HCl [Zyrtec] 10 mg PO DAILY 03/27/18 08/31/18 08/30/18 History Prednisone [predniSONE 10 mg 10 mg PO .TAPER #1 tab.ds.pk 06/30/18 08/31/18 08/30/18 Rx (6-Day Pack, 21 Tabs)] medroxyPROGESTERone ACETATE 10 mg PO DAILY #10 tablet 07/04/18 08/31/18 08/30/18 Rx [Provera] Ipratropium Luther [Atrovent Hfa] 12.9 gm IH Q4HR #2 hfa.aer.ad 08/31/18 Unknown Rx Levothyroxine 1 tab PO DAILY 08/31/18 08/31/18 08/30/18 History Ranitidine HCl 75 mg PO DAILY 08/31/18 08/31/18 08/30/18 History predniSONE [Deltasone] 50 mg PO QDAY #5 tab 09/06/18 Unknown Rx Albuterol Sulfate [Albuterol 0.63% 0.63 mg IH TID PRN #90 ml 10/04/18 Unknown Rx NEBS] Prednisone [predniSONE 10 mg 10 mg PO .TAPER #1 tab.ds.pk 10/04/18 Unknown Rx (6-Day Pack, 21 Tabs)] Prednisone [predniSONE 10 mg 10 mg PO .TAPER #1 tab.ds.pk 10/19/18 Unknown Rx (6-Day Pack, 21 Tabs)] diphenhydrAMINE [Benadryl CAP] 25 mg PO Q6HR PRN #20 capsule 10/19/18 Unknown Rx Acetaminophen [Tylenol Arthritis] 650 mg PO Q6HR PRN #30 tablet.er 11/15/18 Unknown Rx Albuterol Sulfate [Albuterol 0.63% 0.63 mg IH Q4HR PRN #2 ml 11/15/18 Unknown Rx NEBS] Albuterol Sulfate [Proair 90 mcg IH Q4HR PRN #2 aer.pow.ba 11/15/18 Unknown Rx Respiclick] predniSONE [Deltasone] 40 mg PO QDAY #8 tab 11/15/18 Unknown Rx ALBUTEROL Inhaler (OR & NICU) 2 puff IH QID PRN #1 inhalation 11/24/18 Unknown Rx [ProAir HFA Inhaler] Acetaminophen [Tylenol Arthritis] 650 mg PO Q6HR PRN #30 tablet.er 11/24/18 Unknown Rx Famotidine [Pepcid] 20 mg PO BID #10 tablet 11/24/18 Unknown Rx Fluticasone/Salmeterol [Advair 1 each PO BID #1 blst.w.dev 11/24/18 Unknown Rx 500-50 Diskus] Ipratropium [Atrovent NEB] 0.5 mg IH Q4HR #2 ml 11/24/18 Unknown Rx predniSONE [Deltasone] 40 mg PO QDAY #8 tab 11/24/18 Unknown Rx Clindamycin [Clindamycin CAP] 300 mg PO Q8H #21 cap 12/01/18 Unknown Rx HYDROcodone/APAP 5-325 [[place] 1 each PO Q6HR PRN #10 tablet 12/01/18 Unknown Rx 5/325] Ondansetron [Zofran Odt] 4 mg PO Q8HR PRN #14 tab.rapdis 12/01/18 Unknown Rx ALBUTEROL Inhaler (OR & NICU) 2 puff IH QID PRN #1 inhalation 12/17/18 Unknown Rx [ProAir HFA Inhaler] ALBUTEROL NEB's [Proventil 0.083% 2.5 mg IH TID PRN 30 Days nebu 12/17/18 Unknown Rx NEBS] Albuterol Sulfate [Proair 90 mcg IH Q4HR PRN #2 aer.pow.ba 12/17/18 Unknown Rx Respiclick] Benzonatate [Tessalon Perles] 100 mg PO Q8HR PRN #30 capsule 12/17/18 Unknown Rx Prednisone [predniSONE 10 mg 10 mg PO .TAPER #1 tab.ds.pk 12/21/18 Unknown Rx (6-Day Pack, 21 Tabs)] ED Physical Exam - General Limitations: No Limitations General appearance: alert, in no apparent distress - Head Head exam: Present: atraumatic, normocephalic - Eye Eye exam: Present: normal appearance - ENT ENT exam: Present: mucous membranes moist - Neck Neck exam: Present: normal inspection, full ROM - Respiratory Respiratory exam: Present: normal lung sounds bilaterally. Absent: respiratory distress, wheezes, rales, rhonchi - Cardiovascular Cardiovascular Exam: Present: regular rate, normal rhythm, normal heart sounds. Absent: systolic murmur, diastolic murmur, rubs, gallop - GI/Abdominal GI/Abdominal exam: Present: soft, normal bowel sounds. Absent: distended, tenderness, guarding - Extremities Exam Extremities exam: Present: normal inspection - Back Exam Back exam: Present: normal inspection - Neurological Exam Neurological exam: Present: alert, oriented X3 - Psychiatric Psychiatric exam: Present: normal affect, normal mood - Skin Skin exam: Present: warm, dry, intact, normal color. Absent: rash ED Course Vital Signs 12/21/18 02:10 Temperature 98.6 F Pulse Rate 88 Respiratory 14 Rate Blood Pressure 90/55 O2 Sat by Pulse 100 Oximetry BRYAN score - Bryan Score Age > 65: (0) No Aspirin use within the Past 7 Days: (0) No 3 or more CAD Risk Factors: (0) No 2 or more Angina events in past 24 hrs: (1) Yes Known CAD with more than 50% Stenosis: (0) No Elevated Cardiac Markers: (0) No ST Deviation Greater than 0.5mm: (0) No BRYAN Score: 1 ED Medical Decision Making - Medical Decision Making Ms. Young presents with mild asthma exacerbation. Appears well today. Good air movement. Given IM solumedrol. Rx: prednisone taper Critical care attestation.: If time is entered above; I have spent that time in minutes in the direct care of this critically ill patient, excluding procedure time. ED Disposition Clinical Impression: Asthma, Asthma exacerbation Disposition: - TO HOME OR SELFCARE Is pt being admited?: No Does the pt Need Aspirin: No Condition: Stable Instructions: Asthma (ED) Prescriptions: Prednisone [predniSONE 10 mg (6-Day Pack, 21 Tabs)] 10 mg PO .TAPER #1 tab.ds.pk [facility] JOSE [Primary Care Provider] - 3-5 Days
[2018-12-21] MEDS ORDERED: SOLU-Medrol IM ONE (03:01)
[2018-12-21] MEDS ORDERED: PEPCID PO ONE (03:03)
[2018-12-21 06:04] VITALS: BP 122/71
== END 2018-12-21 04:00 | disposition home or self-care (01) ==
LOC: ED 01:21
DX: J45.901 Unspecified asthma with (acute) exacerbation (principal); K21.9 Gastro-esophageal reflux disease without esophagitis; G89.29 Other chronic pain; Z98.51 Tubal ligation status; Z88.1 Allergy status to other antibiotic agents; Z88.6 Allergy status to analgesic agent; Z88.8 Allergy status to other drugs, medicaments and biological substances; Z91.040 Latex allergy status
CPT/HCPCS: 96372; 99282; J2930

== ENCOUNTER 2019-01-14 04:19 | Inpatient (IN) | payer MEDICARE ==
[2019-01-14] MEDS ORDERED: PROVENTIL IH ONE (04:30)
[2019-01-14] MEDS ORDERED: ATROVENT IH ONE (04:30)
[2019-01-14] MEDS ORDERED: MAGNESIUM SULFATE 2GM/50ML 2 GM/50 ML BAG IV ONE (04:30)
--- NOTE | 2019-01-14 05:01 | XRay Report ---
PROCEDURE: XR CHEST 1V AP TECHNIQUE: A portable upright view the chest was obtained. HISTORY: sob COMPARISONS: 12/17/2018 FINDINGS: The heart size and vascularity appear normal. The lungs are clear. Pleural fluid is not seen. The bon es and soft tissues are well-maintained. IMPRESSION: No acute cardiopulmonary process.. This document is electronically signed by Jerson Fritz MD., January 14 2019 04:59:23 AM ET
[2019-01-14 05:12] LABS: Basophils % (Auto) 0.4 % (0.0-1.8); Eosinophils # (Auto) 0.7 K/mm3 (0.0-0.4); Eosinophils % (Auto) 7.5 % (0.0-4.3); Hematocrit 42.8 % (30.3-42.9); Hemoglobin 13.7 gm/dl (10.1-14.3); Lymphocytes # (Auto) 2.5 K/mm3 (1.2-5.4); Lymphocytes % (Auto) 27.4 % (13.4-35.0); Mean Corpuscular HGB Conc 32 % (30-34); Mean Corpuscular Volume 85 fl (79-97); Monocytes # (Auto) 0.9 K/mm3 (0.0-0.8); Monocytes % (Auto) 9.8 % (0.0-7.3); Platelet Count 221 K/mm3 (140-440); Red Blood Count 5.01 M/mm3 (3.65-5.03); Red Cell Distribution Width 16.3 % (13.2-15.2)
[2019-01-14 05:36] LABS: BUN/Creatinine Ratio 10; Blood Urea Nitrogen 10 mg/dL (7-17); Calcium 9.3 mg/dL (8.4-10.2); Hemolysis Index 48
--- NOTE | 2019-01-14 06:39 | Emergency Department Report ---
HPI - General Chief Complaint: Dyspnea/Respdistress Time Seen by Provider: 01/14/19 04:29 - HPI HPI: 48-year-old -[place] female presents to the emergency department via EMS with complaint of shortness of breath, wheezing and coughing that has been going on since about 3 or 4 this morning. She received 125 mg of Solu-Medrol and a breathing treatment without much relief. She also used her own inhaler and nebulizers at home without any relief. No recent travel or sick contacts at home. She denies any tobacco use. Her primary care physician is Dr. Shon Oneal. She denies any fever, nausea, vomiting, diaphoresis, chest pain, back pain. ED Past Medical Hx - Past Medical History Previous Medical History?: Yes Hx Hypertension: No Hx Heart Attack/AMI: No Hx Congestive Heart Failure: No Hx Diabetes: No Hx Deep Vein Thrombosis: No Hx Pulmonary Embolism: No Hx GERD: Yes Hx Liver Disease: No Hx Renal Disease: No Hx Sickle Cell Disease: No Hx Arthritis: No Hx Seizures: No Hx Kidney Stones: No Hx Asthma: Yes Hx COPD: No Hx Tuberculosis: No Hx Dementia: No Hx HIV: No Additional medical history: sinus problems --chronic sinusitis /ABD HERNIA REPAIRED. Prior Intubations x3. Obesity. - Surgical History Past Surgical History?: Yes Hx Coronary Stent: No Hx Open Heart Surgery: No Hx Pacemaker: No Hx Internal Defibrillator: No Hx Cholecystectomy: No Hx Appendectomy: No Hx Breast Surgery: No Additional Surgical History: x4, umbilical hernia repair, sinus surgeries, D&C. thyroid removal. tubiligation - Social History Smoking Status: Never Smoker Substance Use Type: None - Medications Home Medications: Home Medications Medication Instructions Recorded Confirmed Last Taken Type Levothyroxine 1 tab PO DAILY 08/31/18 01/14/19 08/30/18 History ALBUTEROL NEB's [Proventil 0.083% 2.5 mg IH TID PRN 30 Days nebu 12/17/18 01/14/19 Unknown Rx NEBS] Fluticasone/Salmeterol [Advair 2 puff IH BID 01/14/19 01/14/19 Unknown History 500-50 Diskus] Loratadine/Pseudoephedrine 1 tab PO DAILY 01/14/19 01/14/19 Unknown History [Claritin-D 24HR] ED Review of Systems ROS: Stated complaint: SILVIANO Other details as noted in HPI Comment: All other systems reviewed and negative Constitutional: denies: chills, fever Eyes: denies: eye pain, vision change ENT: denies: ear pain, throat pain Respiratory: cough, shortness of breath, wheezing Cardiovascular: denies: chest pain, palpitations Gastrointestinal: denies: abdominal pain, vomiting Genitourinary: denies: dysuria, discharge Musculoskeletal: denies: back pain, arthralgia Skin: denies: rash, lesions Neurological: denies: headache, weakness Physical Exam - Physical Exam Vital Signs: Vital Signs 01/14/19 01/14/19 01/14/19 04:35 04:51 05:33 Pulse Rate 113 H Pulse Rate [ 114 H Anterior Bilateral Throughout] Respiratory 28 H 25 H Rate Respiratory 28 H Rate [Anterior Bilateral Throughout] Blood Pressure 170/85 Blood Pressure 170/85 [Left] O2 Sat by Pulse 98 100 Oximetry 01/14/19 01/14/19 05:35 06:00 Pulse Rate 88 Pulse Rate [ 108 H Anterior Bilateral Throughout] Respiratory 16 Rate Respiratory 20 Rate [Anterior Bilateral Throughout] Blood Pressure 117/74 Blood Pressure [Left] O2 Sat by Pulse 99 Oximetry Physical Exam: GENERAL: The patient is well-developed well-nourished. HEENT: Normocephalic. Atraumatic. Patient has moist mucous membranes. EYES: Extraocular motions are intact. Pupils are equal and reactive to light bilaterally. NECK: Supple. Trachea is midline. CHEST/LUNGS: Moderate wheezing throughout the chest. There is tachypnea but no excessive muscle use. There is no respiratory distress noted. HEART/CARDIOVASCULAR: Regular. There is no tachycardia. There is no obvious murmur. ABDOMEN: Abdomen is soft, nontender. Patient has normal bowel sounds. There is no abdominal distention. SKIN: Skin is warm and dry. NEURO: The patient is awake, alert, and oriented. The patient is cooperative. The patient has no focal neurologic deficits. The patient has normal speech. MUSCULOSKELETAL: There is no tenderness or deformity. There is no evidence of acute injury. ED Course Vital Signs 01/14/19 01/14/19 01/14/19 04:35 04:51 05:33 Pulse Rate 113 H Pulse Rate [ 114 H Anterior Bilateral Throughout] Respiratory 28 H 25 H Rate Respiratory 28 H Rate [Anterior Bilateral Throughout] Blood Pressure 170/85 Blood Pressure 170/85 [Left] O2 Sat by Pulse 98 100 Oximetry 01/14/19 01/14/19 05:35 06:00 Pulse Rate 88 Pulse Rate [ 108 H Anterior Bilateral Throughout] Respiratory 16 Rate Respiratory 20 Rate [Anterior Bilateral Throughout] Blood Pressure 117/74 Blood Pressure [Left] O2 Sat by Pulse 99 Oximetry ED Medical Decision Making - Lab Data Result diagrams: 01/14/19 04:47 01/14/19 04:47 - EKG Data -: EKG Interpreted by Me EKG shows normal: sinus rhythm, axis, intervals, QRS complexes, ST-T waves Rate: normal - EKG Data When compared to previous EKG there are: previous EKG unavailable Interpretation: normal EKG - Radiology Data Radiology results: image reviewed interpreted by me: Chest x-ray does not show any pneumothorax, pleural effusion, pneumonia or obvious focal consolidation. - Medical Decision Making This patient presents to the emergency department with acute shortness of breath that started about 4 AM in the morning. She has a history of asthma and this appears to be an asthma exacerbation if not status asthmaticus. So far the patient has received almost 20 mg of albuterol, 125 mg of Solu-Medrol and 2 g of magnesium and the patient still continues to have moderate bronchospasm that is even heard without auscultation. Chest x-ray did not show any focal consolidation, pneumothorax, pneumonia, pleural effusions, or any other acute process. Since the patient continues to have this moderate bronchospasm, despite treatment, the patient will be admitted to hospital for further evaluation and treatment and was accepted for admission by the hospitalist service. - Differential Diagnosis status asthmaticus, pneumonia, COPD, bronchitis Critical Care Time: Yes Critical care time in (mins) excluding proc time.: 35 Critical care attestation.: If time is entered above; I have spent that time in minutes in the direct care of this critically ill patient, excluding procedure time. Critical care time was spent on this patient and during her initial evaluation, multiple re- evaluations, ordering an interpretation of labs and imaging. Critical Care Time: 35 minutes ED Disposition Clinical Impression: Shortness of breath Asthma with status asthmaticus in adult Qualifiers: Asthma severity: unspecified severity Asthma persistence: unspecified Qualified Code(s): J45.902 - Unspecified asthma with status asthmaticus Disposition: DC-09 OP ADMIT IP TO THIS HOSP Is pt being admited?: No Condition: Fair Time of Disposition: 08:21
[2019-01-14] MEDS ORDERED: PROVENTIL IH PRN (12:58)
[2019-01-14] MEDS ORDERED: SODIUM CHLORIDE FLUSH SYRINGE 10 ML IV PRN (12:58)
[2019-01-14] MEDS ORDERED: TYLENOL PO PRN (12:58)
[2019-01-14] MEDS ORDERED: ZOFRAN IV PRN (12:58)
[2019-01-14] MEDS ORDERED: HEPARIN SUB-Q SCH (14:00)
[2019-01-14] MEDS: PROVENTIL IH SCH ×2 (14:43→20:31)
[2019-01-14] MEDS: SOLU-Medrol IV SCH ×2 (14:46→23:19)
--- NOTE | 2019-01-14 17:22 | History and Physical Report ---
History of Present Illness Date of admission: 01/14/19 08:21 Chief complaint: I can't breathe History of present illness: 48-year-old woman with severe persistent bronchial asthma who presents a 1 day of shortness of breath and wheezing. She states that she became so short of breath that she was lightheaded and altered, she asked her son to call EMS. She has frequent exacerbations and comes to the ER frequently but she has not been admitted to the hospital in many months. She uses her nebulizer and inhalers every day. She also has trouble sleeping at night due to wheezing and cough nightly. Past Medical History: Severe persistent bronchial asthma, chronic rhinitis, history of medullary thyroid cancer status post thyroidectomy , umbilicus hernia repair, thyroidectomy Social history: lives with family. denies: smoking, alcohol abuse, prescription drug abuse, she thinks that the carpet at her current apartment is contributing to her breathing problems Family history: hypertension Medications and Allergies Allergies Allergy/AdvReac Type Severity Reaction Status Date / Time doxycycline Allergy Rash Verified 07/04/18 11:09 ketorolac tromethamine Allergy Anaphylaxis Verified 07/04/18 11:09 [From Toradol] Latex, Natural Rubber Allergy Angioedema Verified 07/04/18 11:09 morphine Allergy Shortness Verified 07/04/18 11:09 of Breath azithromycin [From Zithromax] AdvReac Anaphylaxis Verified 07/04/18 11:09 NSAIDS (Non-Steroidal AdvReac Anaphylaxis Verified 07/04/18 11:09 Anti-Inflamma Penicillins AdvReac Hives Verified 07/04/18 11:09 Home Medications Medication Instructions Recorded Confirmed Last Taken Type ALBUTEROL NEB's [Proventil 0.083% 2.5 mg IH TID PRN 30 Days nebu 12/17/18 01/14/19 Unknown Rx NEBS] Claritin-D 24HR 10 mg PO DAILY 01/14/19 01/14/19 Unknown History Fluticasone/Salmeterol [Advair 2 puff IH BID 01/14/19 01/14/19 Unknown History 500-50 Diskus] Synthroid (Nf) 75 mcg PO QAM 01/14/19 01/14/19 Unknown History Active Meds: Active Medications Acetaminophen (Tylenol) 650 mg PO Q4H PRN PRN Reason: Pain MILD(1-3)/Fever >100.5/NATION Last Admin: 01/14/19 16:58 Dose: 650 mg Documented by: Albuterol (Proventil) 2.5 mg IH Q4HRT PRN PRN Reason: Shortness Of Breath Albuterol (Proventil) 2.5 mg IH Q6HRT [facility] Last Admin: 01/14/19 14:43 Dose: 2.5 mg Documented by: Arformoterol Tartrate (Brovana Nebu) 15 mcg IH Q12HRT [facility] Budesonide (Pulmicort) 0.5 mg IH Q12HRT [facility] Heparin Sodium (Porcine) (Heparin) 5,000 unit SUB-Q Q8HR [facility] Last Admin: 01/14/19 14:46 Dose: 5,000 unit Documented by: Levothyroxine Sodium (Synthroid) 75 mcg PO DAILY@0600 [facility] Loratadine/Pseudoephedrine Sulfate (Claritin-D 24hr) 1 each PO DAILY [facility] Methylprednisolone Sodium Succinate (Solu-Medrol) 40 mg IV Q8HR [facility] Last Admin: 01/14/19 14:46 Dose: 40 mg Documented by: Ondansetron HCl (Zofran) 4 mg IV Q8H PRN PRN Reason: Nausea And Vomiting Sodium Chloride (Sodium Chloride Flush Syringe 10 Ml) 10 ml IV BID [facility] Sodium Chloride (Sodium Chloride Flush Syringe 10 Ml) 10 ml IV PRN PRN PRN Reason: LINE FLUSH Review of Systems All systems: negative Constitutional: no fatigue Ears, nose, mouth and throat: no ear pain Cardiovascular: no chest pain Respiratory: shortness of breath, no sleep apnea, no home oxygen Gastrointestinal: no abdominal pain Rectal: no pain Musculoskeletal: no neck stiffness Integumentary: no deferred Neurological: no head injury Psychiatric: no anxiety Endocrine: no cold intolerance Hematologic/Lymphatic: no easy bruising Allergic/Immunologic: no urticaria Exam - Constitutional Vitals: Temp Pulse Resp BP Pulse Ox 97.9 F 115 H 20 113/65 95 01/14/19 10:14 01/14/19 14:53 01/14/19 14:53 01/14/19 10:14 01/14/19 10:14 General appearance: Present: no acute distress, well-nourished - EENT Eyes: Present: PERRL ENT: hearing intact, clear oral mucosa - Neck Neck: Present: supple, normal ROM - Respiratory Respiratory effort: normal Respiratory: bilateral: diminished, rales - Cardiovascular Heart Sounds: Present: S1 & S2. Absent: rub, click - Extremities Extremities: pulses symmetrical, No edema Peripheral Pulses: within normal limits - Abdominal General gastrointestinal: Present: soft, non-tender, non-distended, normal bowel sounds Female genitourinary: Present: normal - Integumentary Integumentary: Present: clear, warm, dry - Musculoskeletal Musculoskeletal: gait normal, strength equal bilaterally - Psychiatric Psychiatric: appropriate mood/affect, intact judgment & insight - Neurologic Neurologic: CNII-XII intact, moves all extremities Results - Labs CBC & Chem 7: 01/14/19 04:47 01/14/19 04:47 Labs: Laboratory Last Values WBC 9.2 K/mm3 (4.5-11.0) 01/14/19 04:47 RBC 5.01 M/mm3 (3.65-5.03) 01/14/19 04:47 Hgb 13.7 gm/dl (10.1-14.3) 01/14/19 04:47 Hct 42.8 % (30.3-42.9) 01/14/19 04:47 MCV 85 fl (79-97) 01/14/19 04:47 MCH 27 pg (28-32) L 01/14/19 04:47 MCHC 32 % (30-34) 01/14/19 04:47 RDW 16.3 % (13.2-15.2) H 01/14/19 04:47 Plt Count 221 K/mm3 (140-440) 01/14/19 04:47 Lymph % (Auto) 27.4 % (13.4-35.0) 01/14/19 04:47 [place] % (Auto) 9.8 % (0.0-7.3) H 01/14/19 04:47 Eos % (Auto) 7.5 % (0.0-4.3) H 01/14/19 04:47 Baso % (Auto) 0.4 % (0.0-1.8) 01/14/19 04:47 Lymph # 2.5 K/mm3 (1.2-5.4) 01/14/19 04:47 [place] # 0.9 K/mm3 (0.0-0.8) H 01/14/19 04:47 Eos # 0.7 K/mm3 (0.0-0.4) H 01/14/19 04:47 Baso # 0.0 K/mm3 (0.0-0.1) 01/14/19 04:47 Seg Neutrophils % 54.9 % (40.0-70.0) 01/14/19 04:47 Seg Neutrophils # 5.1 K/mm3 (1.8-7.7) 01/14/19 04:47 Sodium 139 mmol/L (137-145) 01/14/19 04:47 Potassium 4.6 mmol/L (3.6-5.0) 01/14/19 04:47 Chloride 101.8 mmol/L (98-107) 01/14/19 04:47 Carbon Dioxide 23 mmol/L (22-30) 01/14/19 04:47 Anion Gap 19 mmol/L 01/14/19 04:47 BUN 10 mg/dL (7-17) 01/14/19 04:47 Creatinine 1.0 mg/dL (0.7-1.2) 01/14/19 04:47 Estimated GFR > 60 ml/min 01/14/19 04:47 BUN/Creatinine Ratio 10 % 01/14/19 04:47 Glucose 167 mg/dL (65-100) H 01/14/19 04:47 Calcium 9.3 mg/dL (8.4-10.2) 01/14/19 04:47 TSH 5.570 mlU/mL (0.270-4.200) H 01/14/19 13:11 Free T4 0.68 ng/dL (0.76-1.46) L 01/14/19 13:11 Thyroxine (T4) 4.2 ug/dL (4.0-12.0) 01/14/19 13:11 - Imaging and Cardiology Chest x-ray: image reviewed (no infiltrate) Assessment and Plan Assessment and plan: 48F admitted to the hospital for acute exacerbation of severe persistent asthma Diagnoses Acute exacerbation of severe persistent bronchial asthma Plan -steroids, nebs, pulm consult, Resp assess and rx -not hypoxic -cont allergy meds -dvt ppx - lovenox and early ambulation
--- NOTE | 2019-01-14 18:08 | Consultation ---
History of Present Illness Consult date: 01/14/19 Reason for consult: dyspnea, cough, asthma History of present illness: 48-year-old woman with severe persistent bronchial asthma who presents a 1 day of shortness of breath and wheezing. She states that she became so short of breath that she was lightheaded and altered, she asked her son to call EMS. She has frequent exacerbations and comes to the ER frequently but she has not been admitted to the hospital in many months. She uses her nebulizer and inhalers every day. She also has trouble sleeping at night due to wheezing and cough nightly. Patient alert, awake and resting on 2 litres O2. O2 saturation 94%. Denies amoking alcohol or drug abuse.Patient is on solumedrol, aerosolized bronchodilators. If she is not allergic to Zithromax. Recommend to add Zithromax. Medications and Allergies Allergies Allergy/AdvReac Type Severity Reaction Status Date / Time doxycycline Allergy Rash Verified 07/04/18 11:09 ketorolac tromethamine Allergy Anaphylaxis Verified 07/04/18 11:09 [From Toradol] Latex, Natural Rubber Allergy Angioedema Verified 07/04/18 11:09 morphine Allergy Shortness Verified 07/04/18 11:09 of Breath azithromycin [From Zithromax] AdvReac Anaphylaxis Verified 07/04/18 11:09 NSAIDS (Non-Steroidal AdvReac Anaphylaxis Verified 07/04/18 11:09 Anti-Inflamma Penicillins AdvReac Hives Verified 07/04/18 11:09 Home Medications Medication Instructions Recorded Confirmed Last Taken Type ALBUTEROL NEB's [Proventil 0.083% 2.5 mg IH TID PRN 30 Days nebu 12/17/18 01/14/19 Unknown Rx NEBS] Claritin-D 24HR 10 mg PO DAILY 01/14/19 01/14/19 Unknown History Fluticasone/Salmeterol [Advair 2 puff IH BID 01/14/19 01/14/19 Unknown History 500-50 Diskus] Synthroid (Nf) 75 mcg PO QAM 01/14/19 01/14/19 Unknown History Active Meds: Active Medications Acetaminophen (Tylenol) 650 mg PO Q4H PRN PRN Reason: Pain MILD(1-3)/Fever >100.5/NATION Last Admin: 01/14/19 16:58 Dose: 650 mg Documented by: Albuterol (Proventil) 2.5 mg IH Q4HRT PRN PRN Reason: Shortness Of Breath Albuterol (Proventil) 2.5 mg IH Q6HRT [facility] Last Admin: 01/14/19 14:43 Dose: 2.5 mg Documented by: Arformoterol Tartrate (Brovana Nebu) 15 mcg IH Q12HRT [facility] Budesonide (Pulmicort) 0.5 mg IH Q12HRT [facility] Enoxaparin Sodium (Lovenox) 40 mg SUB-Q QDAY@2200 [facility] Levothyroxine Sodium (Synthroid) 75 mcg PO DAILY@0600 [facility] Loratadine/Pseudoephedrine Sulfate (Claritin-D 24hr) 1 each PO DAILY [facility] Methylprednisolone Sodium Succinate (Solu-Medrol) 40 mg IV Q8HR [facility] Last Admin: 01/14/19 14:46 Dose: 40 mg Documented by: Ondansetron HCl (Zofran) 4 mg IV Q8H PRN PRN Reason: Nausea And Vomiting Sodium Chloride (Sodium Chloride Flush Syringe 10 Ml) 10 ml IV BID [facility] Sodium Chloride (Sodium Chloride Flush Syringe 10 Ml) 10 ml IV PRN PRN PRN Reason: LINE FLUSH Review of Systems All systems: negative Physical Examination Vital signs: Vital Signs Pulse Resp 114 H 28 H 01/14/19 04:35 01/14/19 04:35 General appearance: no acute distress, alert Eyes: non-icteric ENT: oropharynx moist Neck: supple, no JVD Ascultation: Bilateral: diminished breath sounds Cardiovascular: regular rate and rhythm Gastrointestinal: normoactive bowel sounds, soft, non-tender Integumentary: normal Extremities: no cyanosis, no edema Musculoskeletal: no deformities Gait: normal gait normal mental status, non-focal exam, pupils equal and round, CN II-XII normal mood appropriate Results - Laboratory Findings CBC and BMP: 01/14/19 04:47 01/14/19 04:47 Abnormal lab findings: Abnormal Labs 01/14/19 01/14/19 01/14/19 04:47 04:47 13:11 MCH 27 L RDW 16.3 H [place] % (Auto) 9.8 H Eos % (Auto) 7.5 H [place] # 0.9 H Eos # 0.7 H Glucose 167 H TSH Free T4 0.68 L 01/14/19 13:11 MCH RDW [place] % (Auto) Eos % (Auto) [place] # Eos # Glucose TSH 5.570 H Free T4 - Diagnostic Findings Chest x-ray: report reviewed (No acute cardiopulmonary process.), image reviewed Assessment and Plan 48-year-old woman with severe persistent bronchial asthma who presents a 1 day of shortness of breath and wheezing. She states that she became so short of breath that she was lightheaded and altered, she asked her son to call EMS. She has frequent exacerbations and comes to the ER frequently but she has not been admitted to the hospital in many months. She uses her nebulizer and inhalers every day. She also has trouble sleeping at night due to wheezing and cough nightly. Patient alert, awake and resting on 2 litres O2. O2 saturation 94%. Denies amoki ng alcohol or drug abuse.Patient is on solumedrol, aerosolized bronchodilators. If she is not allergic to Zithromax. Recommend to add Zithromax. - Patient Problems (1) Asthma with status asthmaticus in adult Current Visit: Yes Status: Acute Qualifiers: Asthma severity: unspecified severity Asthma persistence: unspecified Qualified Code(s): J45.902 - Unspecified asthma with status asthmaticus Plan to address problem: O2 2 litres via nasal canula Albuterol/atrovent aerosol treatments q 6 hours. Continue I/V solumedrol Continue S/C Lovenox. Add zithromax if she is not allergic to that. Recommend to add Protonix or Famotidine.
[2019-01-14] MEDS: PULMICORT IH SCH (20:31)
[2019-01-14] MEDS: BROVANA NEBU IH SCH (20:31)
[2019-01-14] MEDS: LOVENOX SUB-Q SCH (23:19)
[2019-01-14] MEDS: SODIUM CHLORIDE FLUSH SYRINGE 10 ML IV SCH (23:19)
[2019-01-15] MEDS: PROVENTIL IH SCH ×4 (02:44→19:35)
[2019-01-15] MEDS ORDERED: SYNTHROID PO SCH (06:00)
[2019-01-15] MEDS: SOLU-Medrol IV SCH ×3 (06:11→21:26)
[2019-01-15] MEDS: PULMICORT IH SCH ×2 (07:47→19:35)
[2019-01-15] MEDS: BROVANA NEBU IH SCH ×2 (07:47→19:35)
[2019-01-15] MEDS ORDERED: LEVOTHYROXINE PO SCH (10:00)
[2019-01-15] MEDS: CLARITIN-D 24HR PO SCH (10:45)
[2019-01-15] MEDS: SODIUM CHLORIDE FLUSH SYRINGE 10 ML IV SCH (10:45)
--- NOTE | 2019-01-15 17:08 | Progress Note ---
Assessment and Plan 48F admitted to the hospital for acute exacerbation of severe persistent asthma Diagnoses Acute exacerbation of severe persistent bronchial asthma Plan -steroids -bronchodialotrs -add montelukast to therapy -continue chronic home medications -VTE prophylaxis -Airway clearance techniques -Optimization of therapies for GERD and post nasal drip/allergic rhinitis -Weight loss counselled as it will help her respiratory status -Influenza and pneumonia vaccination per protocol Subjective Date of service: 01/15/19 Interval history: History of present illness: 48-year-old woman with severe persistent bronchial asthma who presents a 1 day of shortness of breath and wheezing. She states that she became so short of breath that she was lightheaded and altered, she asked her son to call EMS. She has frequent exacerbations and comes to the ER frequently but she has not been admitted to the hospital in many months. She uses her nebulizer and inhalers every day. She also has trouble sleeping at night due to wheezing and cough nightly. Seen and examined. Vitals, labs, medications, chart and imaging reviewed. On going shortness of breath, but beginning to feel better. Denies any fevers or chills. Sleeping better No chest pain, no diarrhea, no vomiting Past Medical History: Severe persistent bronchial asthma, chronic rhinitis, history of medullary thyroid cancer status post thyroidectomy , umbilicus hernia repair, thyroidectomy Social history: lives with family. denies: smoking, alcohol abuse, prescription drug abuse, she thinks that the carpet at her current apartment is contributing to her breathing problems Family history: hypertension Objective Vital Signs - 12hr 01/15/19 01/15/19 01/15/19 07:47 08:10 12:00 Temperature 97.8 F Pulse Rate 91 H Pulse Rate [ 110 H 112 H Anterior Bilateral Throughout] Respiratory 18 Rate Respiratory 20 20 Rate [Anterior Bilateral Throughout] Blood Pressure 128/69 O2 Sat by Pulse 93 Oximetry 01/15/19 01/15/19 01/15/19 15:08 15:24 16:48 Temperature 98.5 F Pulse Rate 102 H Pulse Rate [ 103 H 104 H Anterior Bilateral Throughout] Respiratory 15 Rate Respiratory 18 20 Rate [Anterior Bilateral Throughout] Blood Pressure 124/79 O2 Sat by Pulse 93 Oximetry Constitutional: no acute distress, alert Eyes: non-icteric ENT: oropharynx moist Neck: supple, no JVD Ascultation: Bilateral: diminished breath sounds Cardiovascular: regular rate and rhythm Gastrointestinal: normoactive bowel sounds, soft, non-tender Integumentary: normal Extremities: no cyanosis, no edema Neurologic: normal mental status, non-focal exam, pupils equal and round, CN II- XII normal Psychiatric: mood appropriate CBC and BMP: 01/14/19 04:47 01/14/19 04:47 Abnormal lab findings: Abnormal Labs 01/14/19 01/14/19 01/14/19 04:47 04:47 13:11 MCH 27 L RDW 16.3 H [place] % (Auto) 9.8 H Eos % (Auto) 7.5 H [place] # 0.9 H Eos # 0.7 H Glucose 167 H TSH Free T4 0.68 L 01/14/19 13:11 MCH RDW [place] % (Auto) Eos % (Auto) [place] # Eos # Glucose TSH 5.570 H Free T4
[2019-01-15] MEDS: LOVENOX SUB-Q SCH (21:26)
[2019-01-15] MEDS ORDERED: SINGULAIR PO SCH (22:00)
--- NOTE | 2019-01-16 00:05 | Progress Note ---
Assessment and Plan Assessment and plan: 48F admitted to the hospital for acute exacerbation of severe persistent asthma Diagnoses Acute exacerbation of severe persistent bronchial asthma Plan -steroids, nebs, pulm consult, Resp assess and rx -not hypoxic -cont allergy meds -dvt ppx - lovenox and early ambulation History Interval history: c.o sob and wheezing no fever, cp, or dysuria Hospitalist Physical - Constitutional Vitals: Temp Pulse Resp BP Pulse Ox 98.5 F 102 H 18 124/79 93 01/15/19 16:48 01/15/19 20:02 01/15/19 20:02 01/15/19 16:48 01/15/19 16:48 General appearance: Present: no acute distress, well-nourished - EENT ENT: hearing intact - Neck Neck: Present: supple - Respiratory Respiratory effort: pursed lips Respiratory: bilateral: diminished, wheezing - Cardiovascular Rhythm: regular Heart Sounds: Present: S1 & S2 - Extremities Extremities: no ischemia Peripheral Pulses: within normal limits - Abdominal General gastrointestinal: soft - Integumentary Integumentary: Present: clear, warm, dry - Psychiatric Psychiatric: appropriate mood/affect, intact judgment & insight - Neurologic Neurologic: CNII-XII intact, no focal deficits Results - Labs CBC & Chem 7: 01/14/19 04:47 01/14/19 04:47 Labs: Laboratory Last Values WBC 9.2 K/mm3 (4.5-11.0) 01/14/19 04:47 RBC 5.01 M/mm3 (3.65-5.03) 01/14/19 04:47 Hgb 13.7 gm/dl (10.1-14.3) 01/14/19 04:47 Hct 42.8 % (30.3-42.9) 01/14/19 04:47 MCV 85 fl (79-97) 01/14/19 04:47 MCH 27 pg (28-32) L 01/14/19 04:47 MCHC 32 % (30-34) 01/14/19 04:47 RDW 16.3 % (13.2-15.2) H 01/14/19 04:47 Plt Count 221 K/mm3 (140-440) 01/14/19 04:47 Lymph % (Auto) 27.4 % (13.4-35.0) 01/14/19 04:47 [place] % (Auto) 9.8 % (0.0-7.3) H 01/14/19 04:47 Eos % (Auto) 7.5 % (0.0-4.3) H 01/14/19 04:47 Baso % (Auto) 0.4 % (0.0-1.8) 01/14/19 04:47 Lymph # 2.5 K/mm3 (1.2-5.4) 01/14/19 04:47 [place] # 0.9 K/mm3 (0.0-0.8) H 01/14/19 04:47 Eos # 0.7 K/mm3 (0.0-0.4) H 01/14/19 04:47 Baso # 0.0 K/mm3 (0.0-0.1) 01/14/19 04:47 Seg Neutrophils % 54.9 % (40.0-70.0) 01/14/19 04:47 Seg Neutrophils # 5.1 K/mm3 (1.8-7.7) 01/14/19 04:47 Sodium 139 mmol/L (137-145) 01/14/19 04:47 Potassium 4.6 mmol/L (3.6-5.0) 01/14/19 04:47 Chloride 101.8 mmol/L (98-107) 01/14/19 04:47 Carbon Dioxide 23 mmol/L (22-30) 01/14/19 04:47 Anion Gap 19 mmol/L 01/14/19 04:47 BUN 10 mg/dL (7-17) 01/14/19 04:47 Creatinine 1.0 mg/dL (0.7-1.2) 01/14/19 04:47 Estimated GFR > 60 ml/min 01/14/19 04:47 BUN/Creatinine Ratio 10 % 01/14/19 04:47 Glucose 167 mg/dL (65-100) H 01/14/19 04:47 Calcium 9.3 mg/dL (8.4-10.2) 01/14/19 04:47 TSH 5.570 mlU/mL (0.270-4.200) H 01/14/19 13:11 Free T4 0.68 ng/dL (0.76-1.46) L 01/14/19 13:11 Thyroxine (T4) 4.2 ug/dL (4.0-12.0) 01/14/19 13:11 Active Medications - Current Medications Current Medications: Generic Name Dose Route Start Last Admin Trade Name Freq PRN Reason Stop Dose Admin Acetaminophen 650 mg 01/14/19 12:58 01/14/19 16:58 Tylenol PO 650 mg Q4H PRN Administration Pain MILD(1-3)/Fever >100.5/NATION Albuterol 2.5 mg 01/14/19 12:58 Proventil IH Q4HRT PRN Shortness Of Breath Albuterol 2.5 mg 01/14/19 14:00 01/15/19 19:35 Proventil IH 2.5 mg Q6HRT [facility] Administration Arformoterol Tartrate 15 mcg 01/14/19 20:00 01/15/19 19:35 Brovana Nebu IH 15 mcg Q12HRT [facility] Administration Budesonide 0.5 mg 01/14/19 20:00 01/15/19 19:35 Pulmicort IH 0.5 mg Q12HRT [facility] Administration Enoxaparin Sodium 40 mg 01/14/19 22:00 01/15/19 21:26 Lovenox SUB-Q 40 mg QDAY@2200 [facility] Administration Levothyroxine Sodium 88 mcg 01/16/19 06:00 Synthroid PO DAILY@0600 [facility] Loratadine/Pseudoephedrine Sulfate 1 each 01/15/19 10:00 01/15/19 10:45 Claritin-D 24hr PO 1 each DAILY [facility] Administration Methylprednisolone Sodium Succinate 40 mg 01/14/19 14:00 01/15/19 21:26 Solu-Medrol IV 40 mg Q8HR [facility] Administration Montelukast Sodium 10 mg 01/15/19 22:00 01/15/19 21:27 Singulair PO 10 mg QHS [facility] Administration Ondansetron HCl 4 mg 01/14/19 12:58 01/15/19 02:16 Zofran IV 4 mg Q8H PRN Administration Nausea And Vomiting Sodium Chloride 10 ml 01/14/19 22:00 01/15/19 10:45 Sodium Chloride Flush Syringe 10 Ml IV 10 ml BID [facility] Administration Sodium Chloride 10 ml 01/14/19 12:58 Sodium Chloride Flush Syringe 10 Ml IV PRN PRN LINE FLUSH Nutrition/Malnutrition Assess - Dietary Evaluation Nutrition/Malnutrition Findings: Nutrition Notes Start: 01/15/19 09:45 Freq: Status: Active Protocol: Document 01/15/19 09:45 LM (Rec: 01/15/19 09:49 LM [id number]) Co-Sign 01/15/19 09:45 LP Nutrition Notes Initial or Follow up Brief Note Subjective/Other Information Consult for skin risk. Ted score 21. 100% intakes in chart. BMI 36.3. Nutrition Intervention Revisit per MD consult or patient Sign Off request:
[2019-01-16] MEDS: PROVENTIL IH SCH ×3 (02:27→13:48)
[2019-01-16] MEDS ORDERED: SYNTHROID PO SCH (06:00)
[2019-01-16] MEDS: SOLU-Medrol IV SCH (06:17)
[2019-01-16] MEDS: SODIUM CHLORIDE FLUSH SYRINGE 10 ML IV SCH ×2 (06:18→10:15)
[2019-01-16] MEDS: BROVANA NEBU IH SCH (07:18)
[2019-01-16] MEDS: PULMICORT IH SCH (07:18)
--- NOTE | 2019-01-16 09:26 | Discharge Summary ---
<PAT WALTER - Last Filed: 01/16/19 11:39> Providers - Providers Date of Admission: 01/14/19 08:21 Attending physician: KAVYA WILKERSON MD 01/14/19 12:58 Consult to Physician [CONS] Routine Comment: Consulting Provider: UMM RUSSELL Physician Instructions: Reason For Exam: asthma Primary care physician: HIWOT BRUNO Hospitalization Condition: Fair Disposition: DC-01 TO HOME OR SELFCARE Exam - Constitutional Vitals: Temp Pulse Resp BP Pulse Ox 98.0 F 74 18 102/50 95 01/16/19 05:42 01/16/19 07:46 01/16/19 07:46 01/16/19 05:42 01/16/19 05:42 Plan Follow up with: JOHN KAUFMANGUINDA MD JOSE [Referring] - 3-5 Days Prescriptions: Montelukast [Singulair] 10 mg PO QHS #30 tablet Prednisone [predniSONE 10 mg (6-Day Pack, 21 Tabs)] 10 mg PO .TAPER #1 tab.ds.pk ALBUTEROL NEB's [Proventil 0.083% NEBS] 2.5 mg IH TID PRN 30 Days nebu PRN Reason: Wheezing Levothyroxine [Synthroid] 88 mcg PO DAILY@0600 #30 tablet <KAVYA WILKERSON - Last Filed: 01/21/19 14:20> Providers - Providers Date of Admission: 01/14/19 08:21 Attending physician: KAVYA WILKERSON MD 01/14/19 12:58 Consult to Physician [CONS] Routine Comment: Consulting Provider: UMM RUSSELL Physician Instructions: Reason For Exam: asthma Primary care physician: HIWOT BRUNO Hospitalization Hospital course: 48F admitted to the hospital for acute exacerbation of severe persistent asthma Diagnoses Acute exacerbation of severe persistent bronchial asthma Hospital course she received steroids, nebs and pulm consult she was continued on her home meds, she improved and was dc Time spent for discharge: 33 mins Core Measure Documentation - Palliative Care Palliative Care/ Comfort Measures: Not Applicable - Core Measures Any of the following diagnoses?: none Exam - Constitutional Vitals: Temp Pulse Resp BP Pulse Ox 98.0 F 74 18 102/50 95 01/16/19 05:42 01/16/19 07:46 01/16/19 07:46 01/16/19 05:42 01/16/19 05:42 General appearance: Present: no acute distress, well-nourished - EENT Eyes: Present: PERRL ENT: hearing intact, clear oral mucosa - Neck Neck: Present: supple, normal ROM - Respiratory Respiratory effort: normal Respiratory: bilateral: CTA - Cardiovascular Heart Sounds: Present: S1 & S2. Absent: rub, click - Extremities Extremities: pulses symmetrical, No edema Peripheral Pulses: within normal limits - Abdominal General gastrointestinal: Present: soft, non-tender, non-distended, normal bowel sounds Female genitourinary: Present: normal - Integumentary Integumentary: Present: clear, warm, dry - Musculoskeletal Musculoskeletal: gait normal, strength equal bilaterally - Psychiatric Psychiatric: appropriate mood/affect, intact judgment & insight - Neurologic Neurologic: CNII-XII intact, moves all extremities
[2019-01-16 12:04] VITALS: BP 132/66
[2019-01-16] MEDS: CLARITIN-D 24HR PO SCH (12:05)
--- NOTE | 2019-01-16 13:39 | Progress Note ---
Assessment and Plan 48F admitted to the hospital for acute exacerbation of severe persistent asthma Diagnoses Acute exacerbation of severe persistent bronchial asthma Plan -steroids -bronchodialotrs -add montelukast to therapy -continue chronic home medications -VTE prophylaxis -Airway clearance techniques -Optimization of therapies for GERD and post nasal drip/allergic rhinitis -Weight loss counselled as it will help her respiratory status -Influenza and pneumonia vaccination per protocol Discharge planning Asthma action plan discussed extensively at the bedside Subjective Date of service: 01/16/19 Interval history: Seen and examined. Vitals, labs, medications, chart and imaging reviewed. On going shortness of breath, but beginning to feel better. Denies any fevers or chills. Sleeping better No chest pain, no diarrhea, no vomiting Objective Vital Signs - 12hr 01/16/19 01/16/19 01/16/19 02:28 02:36 05:42 Temperature 98.0 F Pulse Rate 67 Pulse Rate [ 74 79 Anterior Bilateral Throughout] Respiratory 17 Rate Respiratory 18 18 Rate [Anterior Bilateral Throughout] Blood Pressure 102/50 O2 Sat by Pulse 95 Oximetry 01/16/19 01/16/19 01/16/19 07:20 07:46 12:04 Temperature 97.9 F Pulse Rate 85 Pulse Rate [ 72 74 Anterior Bilateral Throughout] Respiratory 20 Rate Respiratory 18 18 Rate [Anterior Bilateral Throughout] Blood Pressure 132/66 O2 Sat by Pulse 99 Oximetry Constitutional: no acute distress, alert Eyes: non-icteric ENT: oropharynx moist Neck: supple, no JVD Effort: normal Ascultation: Bilateral: diminished breath sounds Cardiovascular: regular rate and rhythm Gastrointestinal: normoactive bowel sounds, soft, non-tender Integumentary: normal Extremities: no cyanosis, no edema Neurologic: normal mental status, non-focal exam, pupils equal and round, CN II-XII normal Psychiatric: mood appropriate CBC and BMP: 01/14/19 04:47 01/14/19 04:47 Abnormal lab findings: Abnormal Labs 01/14/19 01/14/19 01/14/19 04:47 04:47 13:11 MCH 27 L RDW 16.3 H [place] % (Auto) 9.8 H Eos % (Auto) 7.5 H [place] # 0.9 H Eos # 0.7 H Glucose 167 H TSH Free T4 0.68 L 01/14/19 13:11 MCH RDW [place] % (Auto) Eos % (Auto) [place] # Eos # Glucose TSH 5.570 H Free T4
== END 2019-01-16 15:47 | disposition home or self-care (01) | DRG 203 ==
LOC: ED 04:19 → 3A 08:21
PROVIDERS: ADMIT Internal Medicine; ATTEND Internal Medicine
DX: J45.52 Severe persistent asthma with status asthmaticus (principal); J32.9 Chronic sinusitis, unspecified; E66.9 Obesity, unspecified; Z68.37 Body mass index [BMI] 37.0-37.9, adult
CPT/HCPCS: 36415; 71045; 80048; 84436; 84439; 84443; 85025; 93005; 93010; 94640; G0378; J1644; J1650; J2405; J2920; J3475

== ENCOUNTER 2019-02-05 16:39 | Emergency (ER) | payer MEDICARE ==
[2019-02-05] MEDS ORDERED: SOLU-Medrol IM ONE (16:47)
[2019-02-05] MEDS ORDERED: DUONEB *Not for PRN Use IH ONE (16:47)
--- NOTE | 2019-02-05 17:01 | Emergency Department Report ---
Minor Respiratory - HPI Duration: 1 Day Pain Location: Chest Severity: moderate Minor Respiratory: Yes Able to Tolerate Fluids, Yes Cough, Yes Chest Pain, Yes Shortness of Breath, No Rhinorrhea, No Sore Throat, No Ear Pain, No Sick Contacts, No Hemoptysis, No Fever Other History: Patient is a 48-year-old female who comes to the ER today complaining of wheezing. Patient has asthma. She is known to the emergency room. She has no fever oxygen saturation is 98% on room air. She is currently on her menses. She denies smoking. <DIDIER BURNS - Last Filed: 02/05/19 18:12> - HPI Duration: Today Pain Location: Nose, Chest Minor Respiratory: Yes Able to Tolerate Fluids, Yes Cough, Yes Chest Pain, Yes Shortness of Breath, No Rhinorrhea, No Sore Throat, No Ear Pain, No Sick Contacts, No Hemoptysis, No Fever <ALEJANDRO HERNANDES - Last Filed: 02/06/19 19:13> - HPI Chief Complaint: Upper Respiratory Infection Stated Complaint: ASTHMA/HEADACHE/CHEST PAIN Time Seen by Provider: 02/05/19 16:50 ED Review of Systems ROS: Stated complaint: ASTHMA/HEADACHE/CHEST PAIN Other details as noted in HPI Comment: All other systems reviewed and negative <DIDIER BURNS - Last Filed: 02/05/19 18:12> ROS: Stated complaint: ASTHMA/HEADACHE/CHEST PAIN Other details as noted in HPI Comment: All other systems reviewed and negative Constitutional: no symptoms reported, see HPI, malaise Eyes: as per HPI. denies: eye pain, eye discharge ENT: as per HPI, ear pain, throat pain, congestion Respiratory: no symptoms reported, cough, shortness of breath, wheezing. denies: see HPI Cardiovascular: as per HPI, chest pain. denies: palpitations, dyspnea on exertion, syncope Endocrine: no symptoms reported, see HPI. denies: excessive sweating, intolerance to cold, intolerance to heat Gastrointestinal: as per HPI. denies: abdominal pain, nausea, vomiting, diarrhea Genitourinary: as per HPI. denies: urgency, hematuria Musculoskeletal: as per HPI, arthralgia Skin: as per HPI. denies: rash, lesions, change in color Neurological: as per HPI, headache. denies: numbness, paresthesias, abnormal gait, vertigo Psychiatric: as per HPI Hematological/Lymphatic: as per HPI <ALEJANDRO HERNANDES - Last Filed: 02/06/19 19:13> ED Past Medical Hx - Past Medical History Hx Hypertension: No Hx Heart Attack/AMI: No Hx Congestive Heart Failure: No Hx Diabetes: No Hx Deep Vein Thrombosis: No Hx Pulmonary Embolism: No Hx GERD: Yes Hx Liver Disease: No Hx Renal Disease: No Hx Sickle Cell Disease: No Hx Arthritis: No Hx Seizures: No Hx Kidney Stones: No Hx Asthma: Yes Hx COPD: No Hx Tuberculosis: No Hx Dementia: No Hx HIV: No Additional medical history: sinus problems --chronic sinusitis /ABD HERNIA REPAIRED. Prior Intubations x3. Obesity. - Surgical History Hx Coronary Stent: No Hx Open Heart Surgery: No Hx Pacemaker: No Hx Internal Defibrillator: No Hx Cholecystectomy: No Hx Appendectomy: No Hx Breast Surgery: No Additional Surgical History: x4, umbilical hernia repair, sinus surgeries, D&C. thyroid removal. tubiligation - Family History Family history: no significant - Social History Smoking Status: Never Smoker <DIDIER BURNS - Last Filed: 02/05/19 18:12> - Past Medical History Hx Hypertension: No Hx Heart Attack/AMI: No Hx Congestive Heart Failure: No Hx Diabetes: No Hx Deep Vein Thrombosis: No Hx Pulmonary Embolism: No Hx GERD: Yes Hx Liver Disease: No Hx Renal Disease: No Hx Sickle Cell Disease: No Hx Arthritis: No Hx Seizures: No Hx Kidney Stones: No Hx Asthma: Yes Hx COPD: No Hx Tuberculosis: No Hx Dementia: No Hx HIV: No - Surgical History Hx Coronary Stent: No Hx Open Heart Surgery: No Hx Pacemaker: No Hx Internal Defibrillator: No Hx Cholecystectomy: No Hx Appendectomy: No <ALEJANDRO HERNANDES - Last Filed: 02/06/19 19:13> - Medications Home Medications: Home Medications Medication Instructions Recorded Confirmed Last Taken Type ALBUTEROL NEB's [Proventil 0.083% 2.5 mg IH TID PRN 30 Days nebu 01/16/19 Unknown Rx NEBS] Levothyroxine [Synthroid] 88 mcg PO DAILY@0600 #30 tablet 01/16/19 Unknown Rx Montelukast [Singulair] 10 mg PO QHS #30 tablet 01/16/19 Unknown Rx ALBUTEROL Inhaler(NF) [VENTOLIN 1 puff IH Q6H PRN #1 inha 02/05/19 Unknown Rx Inhaler(NF)] Albuterol Sulfate 1.25 mg IH Q4H PRN #50 vial.neb 02/05/19 Unknown Rx Cetirizine HCl [ZyrTEC] 10 mg PO DAILY #30 capsule 02/05/19 Unknown Rx DOXYCYCLINE Hyclate [Vibramycin 100 mg PO Q12HR #20 capsule 02/05/19 Unknown Rx CAP] Fluticasone [Flonase] 1 spray NS QDAY #1 bottle 02/05/19 Unknown Rx predniSONE [Deltasone] 20 mg PO DAILY #5 tablet 02/05/19 Unknown Rx Minor Respiratory Exam - Exam General: Vital signs noted. No distress. Alert and acting appropriately. WDWN patient in NAD VS per RN flow sheet Alert and oriented to person, place and time. S1-S2. No S3 or S4. No systolic or diastolic murmur. No JVD. No pitting edema. On admit pt has audible wheezing but no inc wob. Abdomen soft nontender bowel sounds 4. Moves all extremities well. Mood and affect appropriate. Neurologic: Alert and oriented, no deficits. Musculoskeletal: Unremarkable. <DIDIER BURNS - Last Filed: 02/05/19 18:12> - Exam General: Vital signs noted. No distress. Alert and acting appropriately. HEENT: Yes Pharyngeal Erythema, Yes Rhinorrhea, Yes Frontal Tenderness, No Pharyngeal Exudates, No Conjuctival Injection, No Maxillary Tenderness Ear: Neither TM Bulge, Neither TM Erythema, Neither EAC Pain, Neither EAC Discharge Neck: Yes Adenopathy, Yes Supple Lungs: Yes Wheezes, Yes Cough, No Ronchi, No Stridor, No Labored Respirations, No Retractions, No Use of Accessory Muscles, No Other Abnormal Lung Sounds Heart: Yes Regular, No Murmur Abdomen: No Tenderness, No Peritoneal Signs, No Normal Bowel Sounds Skin: No Rash, No Edema Neurologic: Alert and oriented, no deficits. Musculoskeletal: Unremarkable. <ALEJANDRO HERNANDES - Last Filed: 02/06/19 19:13> ED Course Vital Signs 02/05/19 02/05/19 16:46 16:48 Temperature 98.7 F Pulse Rate 88 Respiratory 20 Rate Blood Pressure 107/60 [Right] O2 Sat by Pulse 98 Oximetry - Reevaluation(s) Reevaluation #1: 02/05/19 17:00 On reexam pt remains wheezing but improved duoneb repeated solumedrol given no inc wob Reevaluation #2: 02/05/19 18:11 Pt remains wheezing Mag 2GM IV Reevaluation #3: 02/05/19 18:12 pt states she can take doxy <DIDIER BURNS - Last Filed: 02/05/19 18:12> Vital Signs 02/05/19 02/05/19 02/05/19 16:46 16:48 17:15 Temperature 98.7 F Pulse Rate 88 Respiratory 20 24 Rate Blood Pressure 107/60 [Right] O2 Sat by Pulse 98 Oximetry <ALEJANDRO HERNANDES - Last Filed: 02/06/19 19:13> ED Medical Decision Making - Medical Decision Making Vital Signs 02/05/19 02/05/19 02/05/19 16:46 16:48 17:15 Temperature 98.7 F Pulse Rate 88 Respiratory 20 24 Rate Blood Pressure 107/60 [Right] O2 Sat by Pulse 98 Oximetry <DIDIER BURNS - Last Filed: 02/05/19 18:12> - Differential Diagnosis Acute upper respiratory infection, asthma exacerbation, acute bronchitis <ALEJANDRO HERNANDES - Last Filed: 02/06/19 19:13> Critical care attestation.: If time is entered above; I have spent that time in minutes in the direct care of this critically ill patient, excluding procedure time. <DIDIER BURNS - Last Filed: 02/05/19 18:12> Critical care attestation.: If time is entered above; I have spent that time in minutes in the direct care of this critically ill patient, excluding procedure time. <ALEJANDRO HERNANDES - Last Filed: 02/06/19 19:13> ED Disposition Is pt being admited?: No Does the pt Need Aspirin: No Time of Disposition: 17:41 <DIDIER BURNS - Last Filed: 02/05/19 18:12> Is pt being admited?: No Does the pt Need Aspirin: No <ALEJANDRO HERNANDES - Last Filed: 02/06/19 19:13> Clinical Impression: Asthma with acute exacerbation, URTI (acute upper respiratory infection) Disposition: DC-01 TO HOME OR SELFCARE Condition: Stable Instructions: Asthma (ED) Additional Instructions: DIET TOLERATED MEDS ORDERED TODAY IN ER FOLLOW INSTRUCTIONS ON THE BOTTLE FOLLOW UP PCP WITHIN 48 HOURS TO ENSURE YOU ARE GETTING BETTER ACTIVITY TOLERATED MOTRIN OR TYLENOL FOR PAIN OR FEVER RETURN TO THE ER FOR WORSENING SYMPTOMS NOT RELIEVED BY YOUR MEDICATIONS. Prescriptions: Albuterol Sulfate 1.25 mg IH Q4H PRN #50 vial.neb PRN Reason: Shortness Of Breath predniSONE [Deltasone] 20 mg PO DAILY #5 tablet Fluticasone [Flonase] 1 spray NS QDAY #1 bottle ALBUTEROL Inhaler(NF) [VENTOLIN Inhaler(NF)] 1 puff IH Q6H PRN #1 inha PRN Reason: Shortness Of Breath DOXYCYCLINE Hyclate [Vibramycin CAP] 100 mg PO Q12HR #20 capsule Cetirizine HCl [ZyrTEC] 10 mg PO DAILY #30 capsule Referrals: MARISOL BEARD MD [Staff Physician] - 3-5 Days Print Language: CROATIAN
[2019-02-05] MEDS ORDERED: PROVENTIL IH ONE (17:22)
[2019-02-05] MEDS ORDERED: MAGNESIUM SULFATE 2GM/50ML 2 GM/50 ML BAG IV ONE (18:10)
[2019-02-05] MEDS ORDERED: TYLENOL PO ONE (18:59)
[2019-02-05] MEDS ORDERED: TYLENOL ONE (19:03)
[2019-02-05 19:57] VITALS: BP 108/58
--- NOTE | 2019-02-05 20:06 | Emergency Department Report ---
Blank Doc - Documentation Documentation: 48 y/o female with hx/o asthma comes in for wheezing since yesterday evening. Have been taking treatment. Has NATION, SOb, Chest discomfort.
== END 2019-02-05 19:56 | disposition home or self-care (01) ==
LOC: ED 16:39
DX: J45.901 Unspecified asthma with (acute) exacerbation (principal); J06.9 Acute upper respiratory infection, unspecified
CPT/HCPCS: 94640; 96365; 96372; 99283; J2930; J3475

== ENCOUNTER 2019-03-31 15:50 | Emergency (ER) | payer MEDICARE ==
--- NOTE | 2019-03-31 16:09 | Event Note ---
ED Screening Note ED Screening Note: LUMBAR PAIN SENT FOR MRI- CANT GET HER IN FOR WEEKS SEE ALLERGIES SHE WANTS PAIN MEDS This initial assessment/diagnostic orders/clinical plan/treatment(s) is/are subject to change based on patients health status, clinical progression and re- assessment by fellow clinical providers in the ED. Further treatment and workup at subsequent clinical providers discretion. Patient/guardian urged not to elope from the ED as their condition may be serious if not clinically assessed and managed. Initial orders include:
== END 2019-03-31 20:05 | disposition left against medical advice (07) ==
LOC: ED 15:50
DX: M54.5 Low back pain (principal); J45.909 Unspecified asthma, uncomplicated; K21.0 Gastro-esophageal reflux disease with esophagitis; Z98.890 Other specified postprocedural states; Z98.51 Tubal ligation status; Z88.6 Allergy status to analgesic agent; Z88.1 Allergy status to other antibiotic agents; Z91.040 Latex allergy status; Z88.8 Allergy status to other drugs, medicaments and biological substances; Z91.048 Other nonmedicinal substance allergy status
CPT/HCPCS: 99281

== ENCOUNTER 2019-04-06 01:30 | Emergency (ER) | payer MEDICARE ==
[2019-04-06 03:12] LABS: Basophils # (Auto) 0.1 K/mm3 (0.0-0.1); Basophils % (Auto) 0.7 % (0.0-1.8); Eosinophils # (Auto) 0.4 K/mm3 (0.0-0.4); Eosinophils % (Auto) 5.1 % (0.0-4.3); Hematocrit 40.1 % (30.3-42.9); Hemoglobin 13.1 gm/dl (10.1-14.3); Lymphocytes # (Auto) 2.3 K/mm3 (1.2-5.4); Lymphocytes % (Auto) 25.9 % (13.4-35.0); Mean Corpuscular HGB Conc 33 % (30-34); Mean Corpuscular Volume 87 fl (79-97); Monocytes # (Auto) 0.8 K/mm3 (0.0-0.8); Monocytes % (Auto) 8.8 % (0.0-7.3); Platelet Count 221 K/mm3 (140-440); Red Blood Count 4.64 M/mm3 (3.65-5.03); Red Cell Distribution Width 14.8 % (13.2-15.2)
[2019-04-06 03:25] LABS: BUN/Creatinine Ratio 10; Blood Urea Nitrogen 11 mg/dL (7-17); Calcium 8.9 mg/dL (8.4-10.2); Hemolysis Index 50
--- NOTE | 2019-04-06 04:56 | XRay Report ---
PROCEDURE: XR CHEST 1V AP TECHNIQUE: Chest radiograph single view. HISTORY: Chest Pain COMPARISONS: None . FINDINGS: Single frontal view of the chest was acquired and compared to the prior examination of February 17, 2019. The heart is normal in size. The lungs appear clear. The pleura and mediastinum are within normal miner its. IMPRESSION: No active disease in the chest This document is electronically signed by Neymar Petty MD., April 06 2019 04:54:34 AM ET
[2019-04-06] MEDS ORDERED: DILAUDID IM ONE (06:38)
[2019-04-06] MEDS ORDERED: DELTASONE PO ONE (06:38)
[2019-04-06] MEDS ORDERED: DUONEB *Not for PRN Use IH ONE (06:38)
[2019-04-06] MEDS ORDERED: K-DUR PO ONE (06:39)
--- NOTE | 2019-04-06 07:11 | Emergency Department Report ---
ED Extremity Problem HPI - General Chief complaint: Chest Pain Stated complaint: PAIN IN BOTH LEGS Time Seen by Provider: 04/06/19 06:09 Source: patient Mode of arrival: Wheelchair Limitations: Physical Limitation - History of Present Illness Initial comments: 48-year-old female with a past medical history asthma and GERD presents to the hospital with complaints of waking up with bilateral leg pain this morning. Patient fell asleep on the couch and states that she woke up with pain that started at the top of her legs all the way down to her feet described as a charley horse. Pain described as a 10/10 in intensity and worse with palpation and movement. At time of my evaluation patient states that the right leg pain has resolved and now she just has pain to her left thigh. Patient states she has held mild intermittent lower extremity pain related to low potassium in the past but not as severe as tonight. She also states she has been having ongoing lower back pain for at least one month and is working with her primary care doctor to get an outpatient MRI. Denies any recent fall, injury, or trauma. She is not on pain medicine or under pain management currently. She denies leg weakness, paresthesias, numbness, or bowel/bladder incontinence. She also complained of chest pain while in triage and she tells me that it is just related to her asthma. Patient has audible wheezing during initial interview and she states that she needs a breathing treatment. Upon medical record review patient has had frequent ER visits for asthma exacerbations. Patient had a negative Lexiscan stress test here in June 2017. Echo in July 2017 showed an EF of 50-55%. PMD: Dr. Shon Bruno - Related Data Previous Rx's Medication Instructions Recorded Last Taken Type Levothyroxine [Synthroid] 88 mcg PO DAILY@0600 #30 tablet 01/16/19 Unknown Rx Montelukast [Singulair] 10 mg PO QHS #30 tablet 01/16/19 Unknown Rx ALBUTEROL Inhaler(NF) [VENTOLIN 1 puff IH Q6H PRN #1 inha 02/05/19 Unknown Rx Inhaler(NF)] Albuterol Sulfate 1.25 mg IH Q4H PRN #50 vial.neb 02/05/19 Unknown Rx Cetirizine HCl [ZyrTEC] 10 mg PO DAILY #30 capsule 02/05/19 Unknown Rx DOXYCYCLINE Hyclate [Vibramycin 100 mg PO Q12HR #20 capsule 02/05/19 Unknown Rx CAP] Fluticasone [Flonase] 1 spray NS QDAY #1 bottle 02/05/19 Unknown Rx predniSONE [Deltasone] 20 mg PO DAILY #5 tablet 02/05/19 Unknown Rx ALBUTEROL NEB's [Proventil 0.083% 2.5 mg IH Q4H PRN #25 ml 02/18/19 Unknown Rx NEBS] Benzonatate [Tessalon Perles] 100 mg PO Q8HR #30 capsule 02/18/19 Unknown Rx Cetirizine HCl [ZyrTEC] 10 mg PO DAILY #30 tab.rapdis 02/18/19 Unknown Rx Ipratropium [Atrovent] 0.5 mg IH Q6H PRN #25 02/18/19 Unknown Rx Sulfamethoxazole/Trimethoprim 1 each PO Q12H #20 tablet 02/18/19 Unknown Rx [Bactrim DS TAB] methylPREDNISolone [Medrol] 4 mg PO DAILY #21 tab.ds.pk 02/18/19 Unknown Rx ALBUTEROL NEB's [Proventil 0.083% 2.5 mg IH TID PRN 30 Days nebu 04/06/19 Unknown Rx NEBS] HYDROcodone/APAP 5-325 [[place] 1 each PO Q6HR PRN #15 tablet 04/06/19 Unknown Rx 5/325] Ondansetron [Zofran Odt] 4 mg PO Q8HR PRN #20 tab.rapdis 04/06/19 Unknown Rx Potassium Chloride [K-Dur] 20 meq PO QDAY #3 tablet 04/06/19 Unknown Rx predniSONE [Deltasone] 20 mg PO QDAY #5 tab 04/06/19 Unknown Rx Allergies Allergy/AdvReac Type Severity Reaction Status Date / Time doxycycline Allergy Rash Verified 07/04/18 11:09 ketorolac tromethamine Allergy Anaphylaxis Verified 07/04/18 11:09 [From Toradol] Latex, Natural Rubber Allergy Angioedema Verified 07/04/18 11:09 morphine Allergy Shortness Verified 07/04/18 11:09 of Breath azithromycin [From Zithromax] AdvReac Anaphylaxis Verified 07/04/18 11:09 NSAIDS (Non-Steroidal AdvReac Anaphylaxis Verified 07/04/18 11:09 Anti-Inflamma Penicillins AdvReac Hives Verified 07/04/18 11:09 ED Review of Systems ROS: Stated complaint: PAIN IN BOTH LEGS Other details as noted in HPI Comment: All other systems reviewed and negative ED Past Medical Hx - Past Medical History Previous Medical History?: Yes Hx Hypertension: No Hx Heart Attack/AMI: No Hx Congestive Heart Failure: No Hx Diabetes: No Hx Deep Vein Thrombosis: No Hx Pulmonary Embolism: No Hx GERD: Yes Hx Liver Disease: No Hx Renal Disease: No Hx Sickle Cell Disease: No Hx Arthritis: No Hx Seizures: No Hx Kidney Stones: No Hx Asthma: Yes (chronic) Hx COPD: No Hx Tuberculosis: No Hx Dementia: No Hx HIV: No Additional medical history: sinus problems. Prior Intubations x3. Obesity. - Surgical History Past Surgical History?: Yes Hx Coronary Stent: No Hx Open Heart Surgery: No Hx Pacemaker: No Hx Internal Defibrillator: No Hx Cholecystectomy: No Hx Appendectomy: No Hx Breast Surgery: No Additional Surgical History: x4, umbilical hernia repair, sinus surgeries, D&C. thyroid removal. tubiligation - Social History Smoking Status: Never Smoker - Medications Home Medications: Home Medications Medication Instructions Recorded Confirmed Last Taken Type Levothyroxine [Synthroid] 88 mcg PO DAILY@0600 #30 tablet 01/16/19 Unknown Rx Montelukast [Singulair] 10 mg PO QHS #30 tablet 01/16/19 Unknown Rx ALBUTEROL Inhaler(NF) [VENTOLIN 1 puff IH Q6H PRN #1 inha 02/05/19 Unknown Rx Inhaler(NF)] Albuterol Sulfate 1.25 mg IH Q4H PRN #50 vial.neb 02/05/19 Unknown Rx Cetirizine HCl [ZyrTEC] 10 mg PO DAILY #30 capsule 02/05/19 Unknown Rx DOXYCYCLINE Hyclate [Vibramycin 100 mg PO Q12HR #20 capsule 02/05/19 Unknown Rx CAP] Fluticasone [Flonase] 1 spray NS QDAY #1 bottle 02/05/19 Unknown Rx predniSONE [Deltasone] 20 mg PO DAILY #5 tablet 02/05/19 Unknown Rx ALBUTEROL NEB's [Proventil 0.083% 2.5 mg IH Q4H PRN #25 ml 02/18/19 Unknown Rx NEBS] Benzonatate [Tessalon Perles] 100 mg PO Q8HR #30 capsule 02/18/19 Unknown Rx Cetirizine HCl [ZyrTEC] 10 mg PO DAILY #30 tab.rapdis 02/18/19 Unknown Rx Ipratropium [Atrovent] 0.5 mg IH Q6H PRN #25 02/18/19 Unknown Rx Sulfamethoxazole/Trimethoprim 1 each PO Q12H #20 tablet 02/18/19 Unknown Rx [Bactrim DS TAB] methylPREDNISolone [Medrol] 4 mg PO DAILY #21 tab.ds.pk 02/18/19 Unknown Rx ALBUTEROL NEB's [Proventil 0.083% 2.5 mg IH TID PRN 30 Days nebu 04/06/19 Unkn own Rx NEBS] HYDROcodone/APAP 5-325 [[place] 1 each PO Q6HR PRN #15 tablet 04/06/19 Unknown Rx 5/325] Ondansetron [Zofran Odt] 4 mg PO Q8HR PRN #20 tab.rapdis 04/06/19 Unknown Rx Potassium Chloride [K-Dur] 20 meq PO QDAY #3 tablet 04/06/19 Unknown Rx predniSONE [Deltasone] 20 mg PO QDAY #5 tab 04/06/19 Unknown Rx ED Physical Exam - General Limitations: Physical Limitation - Other Other exam information: General: No limitations, patient is alert in no acute distress Head exam: Atraumatic, normocephalic Eyes exam: Normal appearance ENT: Moist mucous membrane, normal oropharynx Neck exam: Normal inspection, full range of motion, no meningismus nontender Respiratory exam: Diminished breath sounds with bilateral expiratory wheezing,no accessory muscle use or tachypnea Cardiovascular: Normal rate and rhythm, normal heart sounds Abdomen: Soft, nondistended, and nontender, with normal bowel sounds, no rebound, or guarding Extremity: Full range of motion normal inspection no deformity. Tenderness to left thigh area palpation. No warmth or erythema. 2+ DP pulses. Back: Normal Inspection, full range of motion, no tenderness Neurologic: Alert, oriented x3, cranial nerves intact, no motor or sensory deficit Psychiatric: normal affect, normal mood Skin: Warm, dry, intact ED Course Vital Signs 04/06/19 04/06/19 04/06/19 02:23 07:22 07:30 Temperature 98.0 F 99.0 F Pulse Rate 66 89 Pulse Rate [ 68 Bilateral] Pulse Rate [ 66 Throughout] Respiratory 20 19 Rate Respiratory 16 Rate [Bilateral ] Respiratory 16 Rate [ Throughout] Blood Pressure 136/64 Blood Pressure 129/86 [Left] O2 Sat by Pulse 97 96 Oximetry 04/06/19 09:24 Temperature 98.1 F Pulse Rate 72 Pulse Rate [ Bilateral] Pulse Rate [ Throughout] Respiratory 18 Rate Respiratory Rate [Bilateral ] Respiratory Rate [ Throughout] Blood Pressure Blood Pressure 128/70 [Left] O2 Sat by Pulse 99 Oximetry - Reevaluation(s) Reevaluation #1: 04/06/19 10:36 Patient's pain improved after initial dose of IM Dilaudid. She did however become nauseated and despite nurses instruction not to eat, pt did try to eat and then had repeated episodes of vomiting. The patient reassessed she states that she still feels nauseated despite ODT Zofran and feels weak. She will be given IV fluids and additional IV Zofran and reassesd for discharge at that point. 04/06/19 12:55 pt feeling better after zofran and tolerating IV fluids. Patient did not receive IV fluids due to his history of saline by vomiting only started after eating in the ED signs for significant hydration. She can hydrate orally ED Medical Decision Making - Lab Data Result diagrams: 04/06/19 02:51 04/06/19 02:51 Lab Results 04/06/19 04/06/19 04/06/19 Range/Units 02:51 02:51 02:51 WBC 8.7 (4.5-11.0) K/mm3 RBC 4.64 (3.65-5.03) M/mm3 Hgb 13.1 (10.1-14.3) gm/dl Hct 40.1 (30.3-42.9) % MCV 87 (79-97) fl MCH 28 (28-32) pg MCHC 33 (30-34) % RDW 14.8 (13.2-15.2) % Plt Count 221 (140-440) K/mm3 Lymph % (Auto) 25.9 (13.4-35.0) % [place] % (Auto) 8.8 H (0.0-7.3) % Eos % (Auto) 5.1 H (0.0-4.3) % Baso % (Auto) 0.7 (0.0-1.8) % Lymph # 2.3 (1.2-5.4) K/mm3 [place] # 0.8 (0.0-0.8) K/mm3 Eos # 0.4 (0.0-0.4) K/mm3 Baso # 0.1 (0.0-0.1) K/mm3 Seg Neutrophils % 59.5 (40.0-70.0) % Seg Neutrophils # 5.2 (1.8-7.7) K/mm3 Sodium 139 (137-145) mmol/L Potassium 3.4 L (3.6-5.0) mmol/L Chloride 102.3 (98-107) mmol/L Carbon Dioxide 24 (22-30) mmol/L Anion Gap 16 mmol/L BUN 11 (7-17) mg/dL Creatinine 1.1 (0.7-1.2) mg/dL Estimated GFR > 60 ml/min BUN/Creatinine Ratio 10 % Glucose 130 H (65-100) mg/dL Calcium 8.9 (8.4-10.2) mg/dL Magnesium (1.7-2.3) mg/dL Total Creatine Kinase (30-135) units/L Troponin T < 0.010 (0.00-0.029) ng/mL HCG, Qual Negative (Negative) 04/06/19 04/06/19 Range/Units Unknown Unknown WBC (4.5-11.0) K/mm3 RBC (3.65-5.03) M/mm3 Hgb (10.1-14.3) gm/dl Hct (30.3-42.9) % MCV (79-97) fl MCH (28-32) pg MCHC (30-34) % RDW (13.2-15.2) % Plt Count (140-440) K/mm3 Lymph % (Auto) (13.4-35.0) % [place] % (Auto) (0.0-7.3) % Eos % (Auto) (0.0-4.3) % Baso % (Auto) (0.0-1.8) % Lymph # (1.2-5.4) K/mm3 [place] # (0.0-0.8) K/mm3 Eos # (0.0-0.4) K/mm3 Baso # (0.0-0.1) K/mm3 Seg Neutrophils % (40.0-70.0) % Seg Neutrophils # (1.8-7.7) K/mm3 Sodium (137-145) mmol/L Potassium (3.6-5.0) mmol/L Chloride (98-107) mmol/L Carbon Dioxide (22-30) mmol/L Anion Gap mmol/L BUN (7-17) mg/dL Creatinine (0.7-1.2) mg/dL Estimated GFR ml/min BUN/Creatinine Ratio % Glucose (65-100) mg/dL Calcium (8.4-10.2) mg/dL Magnesium 2.10 (1.7-2.3) mg/dL Total Creatine Kinase 384 H (30-135) units/L Troponin T < 0.010 (0.00-0.029) ng/mL HCG, Qual (Negative) - EKG Data -: EKG Interpreted by Id EKG shows normal: sinus rhythm, axis (qrs 33), QRS complexes (qrsd 94), ST-T waves (no stemi) Rate: normal (77) - EKG Data When compared to previous EKG there are: no significant change - Medical Decision Making Pain improvement with each treatment. Potassium supplemented. No signs of infection or other acute abnormalities. Wheezing improved with nebs and steroids and will be discharged on appropriate meds for extremity pain and asthma exacerbation. - Differential Diagnosis muscle cramps, electrolyte abnormality, rhabdo, radiculopathy Critical Care Time: No Critical care attestation.: If time is entered above; I have spent that time in minutes in the direct care of this critically ill patient, excluding procedure time. ED Disposition Clinical Impression: Left leg pain, Acute asthma exacerbation, Hypokalemia Disposition: DC-01 TO HOME OR SELFCARE Is pt being admited?: No Does the pt Need Aspirin: No Condition: Stable Instructions: Asthma (ED), Musculoskeletal Pain (ED), Hypokalemia (ED) Additional Instructions: Take the medication as prescribed. Follow up with your doctor or the clinic/doctor provided. Return if symptoms worsen as indicated by your discharge instructions Prescriptions: predniSONE [Deltasone] 20 mg PO QDAY #5 tab Potassium Chloride [K-Dur] 20 meq PO QDAY #3 tablet HYDROcodone/APAP 5-325 [[place] 5/325] 1 each PO Q6HR PRN #15 tablet PRN Reason: Pain ALBUTEROL NEB's [Proventil 0.083% NEBS] 2.5 mg IH TID PRN 30 Days nebu PRN Reason: Wheezing Ondansetron [Zofran Odt] 4 mg PO Q8HR PRN #20 tab.rapdis PRN Reason: Nausea And Vomiting Referrals: SHON BRUNO MD [Staff Physician] - 3-5 Days Time of Disposition: 13:00
[2019-04-06] MEDS ORDERED: ZOFRAN ODT PO ONE (09:21)
[2019-04-06 09:27] VITALS: BP 128/70
[2019-04-06] MEDS ORDERED: NACL 0.9% 1000 ML 1,000 ML ONE (10:08)
[2019-04-06] MEDS ORDERED: ZOFRAN ONE (10:08)
[2019-04-06] MEDS ORDERED: NACL 0.9% 1000 ML 1,000 ML IV ONE (10:10)
[2019-04-06] MEDS ORDERED: ZOFRAN IV ONE (10:10)
== END 2019-04-06 13:18 | disposition home or self-care (01) ==
LOC: ED 01:30
DX: J45.901 Unspecified asthma with (acute) exacerbation (principal); E87.6 Hypokalemia; R11.2 Nausea with vomiting, unspecified; K21.0 Gastro-esophageal reflux disease with esophagitis; Z98.51 Tubal ligation status; Z98.890 Other specified postprocedural states; Z88.0 Allergy status to penicillin; Z88.8 Allergy status to other drugs, medicaments and biological substances; Z88.6 Allergy status to analgesic agent; Z88.1 Allergy status to other antibiotic agents; Z91.040 Latex allergy status
CPT/HCPCS: 36415; 71045; 80048; 82550; 83735; 84484; 84703; 85025; 93005; 93010; 94640; 96361; 96372; 96374; 99284; J1170; J2405; J7030; J7512; Q0162

== ENCOUNTER 2019-05-14 14:36 | Emergency (ER) | payer MEDICARE ==
[2019-05-14] MEDS ORDERED: DECADRON IM ONE (14:55)
[2019-05-14] MEDS ORDERED: PROVENTIL IH ONE (14:55)
[2019-05-14] MEDS ORDERED: ATROVENT IH ONE (14:55)
--- NOTE | 2019-05-14 14:55 | Emergency Department Report ---
Blank Doc - Documentation Documentation: This is a 48-year-old female that presents with SOB and wheezing. This initial assessment/diagnostic orders/clinical plan/treatment(s) is/are subject to change based on patient's health status, clinical progression and re- assessment by fellow clinical providers in the ED. Further treatment and workup at subsequent clinical providers discretion. Patient/guardians urged not to elope from the ED as their condition may be serious if not clinically assessed and managed. Initial orders include: 1- Patient sent to [facility] for further evaluation and treatment 2- breathing treatment/steroids
[2019-05-14 14:56] VITALS: BP 122/69
--- NOTE | 2019-05-14 17:12 | Emergency Department Report ---
ED Asthma HPI - General Chief Complaint: Pain General Stated Complaint: GROIN AREA PAIN/SINUS/ASTHMA ISSUES Time Seen by Provider: 05/14/19 14:52 Source: patient Mode of arrival: Ambulatory Limitations: No Limitations - History of Present Illness Initial Comments: This is a 48-year-old female with a history of asthma who presents E complaining of asthma exacerbation 2-3 days. Patient states she uses her own medications with no relief. She does complain of a dry nonproductive cough. She denies fevers/chills/nausea vomiting difficulty breathing. MD Complaint: "asthma attack", shortness of breath -: days(s) (2) Asthma History: history of frequent attac Severity: moderate Context: allergen exposure Associated Symptoms: dry cough - Related Data Current Asthma Therapy: inhaled bronchodilator Previous Rx's Medication Instructions Recorded Last Taken Type Levothyroxine [Synthroid] 88 mcg PO DAILY@0600 #30 tablet 01/16/19 Unknown Rx ALBUTEROL Inhaler(NF) [VENTOLIN 1 puff IH Q6H PRN #1 inha 02/05/19 Unknown Rx Inhaler(NF)] Albuterol Sulfate 1.25 mg IH Q4H PRN #50 vial.neb 02/05/19 Unknown Rx Cetirizine HCl [ZyrTEC] 10 mg PO DAILY #30 capsule 02/05/19 Unknown Rx DOXYCYCLINE Hyclate [Vibramycin 100 mg PO Q12HR #20 capsule 02/05/19 Unknown Rx CAP] Fluticasone [Flonase] 1 spray NS QDAY #1 bottle 02/05/19 Unknown Rx ALBUTEROL NEB's [Proventil 0.083% 2.5 mg IH Q4H PRN #25 ml 02/18/19 Unknown Rx NEBS] Benzonatate [Tessalon Perles] 100 mg PO Q8HR #30 capsule 02/18/19 Unknown Rx Cetirizine HCl [ZyrTEC] 10 mg PO DAILY #30 tab.rapdis 02/18/19 Unknown Rx Ipratropium [Atrovent] 0.5 mg IH Q6H PRN #25 02/18/19 Unknown Rx Sulfamethoxazole/Trimethoprim 1 each PO Q12H #20 tablet 02/18/19 Unknown Rx [Bactrim DS TAB] methylPREDNISolone [Medrol] 4 mg PO DAILY #21 tab.ds.pk 02/18/19 Unknown Rx ALBUTEROL NEB's [Proventil 0.083% 2.5 mg IH TID PRN 30 Days nebu 04/06/19 Unknown Rx NEBS] HYDROcodone/APAP 5-325 [[place] 1 each PO Q6HR PRN #15 tablet 04/06/19 Unknown Rx 5/325] Ondansetron [Zofran Odt] 4 mg PO Q8HR PRN #20 tab.rapdis 04/06/19 Unknown Rx Potassium Chloride [K-Dur] 20 meq PO QDAY #3 tablet 04/06/19 Unknown Rx predniSONE [Deltasone] 20 mg PO QDAY #5 tab 04/06/19 Unknown Rx Cyclobenzaprine [Flexeril] 10 mg PO QHS PRN #15 tablet 05/14/19 Unknown Rx Montelukast [Singulair] 10 mg PO QHS #30 tablet 05/14/19 Unknown Rx predniSONE [Deltasone] 20 mg PO DAILY #5 tablet 05/14/19 Unknown Rx Allergies Allergy/AdvReac Type Severity Reaction Status Date / Time doxycycline Allergy Rash Verified 07/04/18 11:09 ketorolac tromethamine Allergy Anaphylaxis Verified 07/04/18 11:09 [From Toradol] Latex, Natural Rubber Allergy Angioedema Verified 07/04/18 11:09 morphine Allergy Shortness Verified 07/04/18 11:09 of Breath azithromycin [From Zithromax] AdvReac Anaphylaxis Verified 07/04/18 11:09 NSAIDS (Non-Steroidal AdvReac Anaphylaxis Verified 07/04/18 11:09 Anti-Inflamma Penicillins AdvReac Hives Verified 07/04/18 11:09 ED Review of Systems ROS: Stated complaint: GROIN AREA PAIN/SINUS/ASTHMA ISSUES Other details as noted in HPI Comment: All other systems reviewed and negative ED Past Medical Hx - Past Medical History Hx Hypertension: No Hx Heart Attack/AMI: No Hx Congestive Heart Failure: No Hx Diabetes: No Hx Deep Vein Thrombosis: No Hx Pulmonary Embolism: No Hx GERD: Yes Hx Liver Disease: No Hx Renal Disease: No Hx Sickle Cell Disease: No Hx Arthritis: No Hx Seizures: No Hx Kidney Stones: No Hx Asthma: Yes (chronic) Hx COPD: No Hx Tuberculosis: No Hx Dementia: No Hx HIV: No Additional medical history: sinus problems. Prior Intubations x3. Obesity. hypothyroid - Surgical History Hx Coronary Stent: No Hx Open Heart Surgery: No Hx Pacemaker: No Hx Internal Defibrillator: No Hx Cholecystectomy: No Hx Appendectomy: No Hx Breast Surgery: No Additional Surgical History: x4, umbilical hernia repair, sinus surgeries, D&C. thyroid removal. tubligation - Social History Smoking Status: Never Smoker Substance Use Type: None - Medications Home Medications: Home Medications Medication Instructions Recorded Confirmed Last Taken Type Levothyroxine [Synthroid] 88 mcg PO DAILY@0600 #30 tablet 01/16/19 Unknown Rx ALBUTEROL Inhaler(NF) [VENTOLIN 1 puff IH Q6H PRN #1 inha 02/05/19 Unknown Rx Inhaler(NF)] Albuterol Sulfate 1.25 mg IH Q4H PRN #50 vial.neb 02/05/19 Unknown Rx Cetirizine HCl [ZyrTEC] 10 mg PO DAILY #30 capsule 02/05/19 Unknown Rx DOXYCYCLINE Hyclate [Vibramycin 100 mg PO Q12HR #20 capsule 02/05/19 Unknown Rx CAP] Fluticasone [Flonase] 1 spray NS QDAY #1 bottle 02/05/19 Unknown Rx ALBUTEROL NEB's [Proventil 0.083% 2.5 mg IH Q4H PRN #25 ml 02/18/19 Unknown Rx NEBS] Benzonatate [Tessalon Perles] 100 mg PO Q8HR #30 capsule 02/18/19 Unknown Rx Cetirizine HCl [ZyrTEC] 10 mg PO DAILY #30 tab.rapdis 02/18/19 Unknown Rx Ipratropium [Atrovent] 0.5 mg IH Q6H PRN #25 02/18/19 Unknown Rx Sulfamethoxazole/Trimethoprim 1 each PO Q12H #20 tablet 02/18/19 Unknown Rx [Bactrim DS TAB] methylPREDNISolone [Medrol] 4 mg PO DAILY #21 tab.ds.pk 02/18/19 Unknown Rx ALBUTEROL NEB's [Proventil 0.083% 2.5 mg IH TID PRN 30 Days nebu 04/06/19 Unknown Rx NEBS] HYDROcodone/APAP 5-325 [[place] 1 each PO Q6HR PRN #15 tablet 04/06/19 Unknown Rx 5/325] Ondansetron [Zofran Odt] 4 mg PO Q8HR PRN #20 tab.rapdis 04/06/19 Unknown Rx Potassium Chloride [K-Dur] 20 meq PO QDAY #3 tablet 04/06/19 Unknown Rx predniSONE [Deltasone] 20 mg PO QDAY #5 tab 04/06/19 Unknown Rx Cyclobenzaprine [Flexeril] 10 mg PO QHS PRN #15 tablet 05/14/19 Unknown Rx Montelukast [Singulair] 10 mg PO QHS #30 tablet 05/14/19 Unknown Rx predniSONE [Deltasone] 20 mg PO DAILY #5 tablet 05/14/19 Unknown Rx ED Physical Exam - General Limitations: No Limitations General appearance: alert, in no apparent distress - Head Head exam: Present: atraumatic, normocephalic - Eye Eye exam: Present: normal appearance - ENT ENT exam: Present: mucous membranes moist - Neck Neck exam: Present: normal inspection - Respiratory Respiratory exam: Present: normal lung sounds bilaterally. Absent: respiratory distress - Cardiovascular Cardiovascular Exam: Present: regular rate, normal rhythm. Absent: systolic murmur, diastolic murmur, rubs, gallop - GI/Abdominal GI/Abdominal exam: Present: soft, normal bowel sounds - Extremities Exam Extremities exam: Present: normal inspection - Back Exam Back exam: Present: normal inspection - Neurological Exam Neurological exam: Present: alert, oriented X3 - Psychiatric Psychiatric exam: Present: normal affect, normal mood - Skin Skin exam: Present: warm, dry, intact, normal color. Absent: rash ED Course Vital Signs 05/14/19 05/14/19 14:54 15:19 Temperature 97.9 F Pulse Rate 84 89 Respiratory 19 Rate Blood Pressure 122/69 O2 Sat by Pulse 98 97 Oximetry ED Medical Decision Making - Radiology Data Radiology results: report reviewed, image reviewed INDICATION / CLINICAL INFORMATION: cough/jacquie. COMPARISON: Chest x-ray on 04/06/2019. FINDINGS: SUPPORT DEVICES: None. HEART / MEDIASTINUM: No significant abnormality. LUNGS / PLEURA: No significant pulmonary or pleural abnormality. No pneumothorax. ADDITIONAL FINDINGS: No significant additional findings. IMPRESSION: 1. No acute findings. Signer Name: Rivas Gilmore MD Signed: 05/14/2019 6:05 PM Workstation Name: [id number] Transcribed By: ASIA Dictated By: Rivas Gilmore MD Electronically Authenticated By: Rivas Gilmore MD Signed Date/Time: 05/14/19 1805 - Medical Decision Making 48-year-old female presents with asthma exacerbation (Mild) ED course: Patient received a breathing treatment, prednisone in the ED. Chest x-ray ordered, chest x-ray shows no acute findings. Patient had no respiratory distress in the ED. Post treatment evaluation: No wheezing heard, no use of accessory muscles, I discussed with the patient to follow up with her primary care physician. I discussed with the patient will be going home on with albuterol inhaler as well as nebulizer Vital signs are normalized, patient is saturation at 98% on room air. I discussed with the patient is symptoms worsen to return to ED immediately. Critical care attestation.: If time is entered above; I have spent that time in minutes in the direct care of this critically ill patient, excluding procedure time. ED Disposition Clinical Impression: Asthma exacerbation, Myalgia Disposition: - TO HOME OR SELFCARE Is pt being admited?: No Does the pt Need Aspirin: No Condition: Stable Instructions: Asthma (ED), Bronchospasm (ED) Additional Instructions: Make sure to follow up with the primary care physician as discussed. Take all your medications as you've been prescribed. If you have any worsening symptoms or develop new symptoms please return to ED immediately. Prescriptions: Cyclobenzaprine [Flexeril] 10 mg PO QHS PRN #15 tablet PRN Reason: Muscle Spasm Montelukast [Singulair] 10 mg PO QHS #30 tablet predniSONE [Deltasone] 20 mg PO DAILY #5 tablet Referrals: FRANCISCA WALDRON MD [Primary Care Provider] - 3-5 Days [facility] [Provider Group] - 3-5 Days Forms: Accompanied Note, Work/School Release Form(ED) Time of Disposition: 18:18
--- NOTE | 2019-05-14 18:09 | XRay Report ---
CHEST 2 VIEWS INDICATION / CLINICAL INFORMATION: cough/jacquie. COMPARISON: Chest x-ray on 04/06/2019. FINDINGS: SUPPORT DEVICES: None. HEART / MEDIASTINUM: No significant abnormality. LUNGS / PLEURA: No significant pulmonary or pleural abnormality. No pneumothorax. ADDITIONAL FINDINGS: No significant additional findings. IMPRESSION: 1. No acute findings. Signer Name: Rivas Gilmore MD Signed: 05/14/2019 6:05 PM Workstation Name: [id number]
== END 2019-05-14 18:44 | disposition home or self-care (01) ==
LOC: ED 14:36
DX: J45.901 Unspecified asthma with (acute) exacerbation (principal); M79.10 Myalgia, unspecified site; K21.9 Gastro-esophageal reflux disease without esophagitis; E66.9 Obesity, unspecified; E03.9 Hypothyroidism, unspecified; E89.0 Postprocedural hypothyroidism; Z98.51 Tubal ligation status; Z79.899 Other long term (current) drug therapy; Z91.040 Latex allergy status; Z91.048 Other nonmedicinal substance allergy status; Z88.8 Allergy status to other drugs, medicaments and biological substances
CPT/HCPCS: 71046; 94640; 96372; 99283; J1100

== ENCOUNTER 2019-05-20 12:17 | Emergency (ER) | payer MEDICARE ==
--- NOTE | 2019-05-20 12:34 | Event Note ---
ED Screening Note Date of service: 05/20/19 Time: 12:32 ED Screening Note: This is a 48 y.o. F. that presents to the ER with abdominal pain and BLE pain for 3 days. LMP 08/2018 This initial assessment/diagnostic orders/clinical plan/treatment(s) is/are subject to change based on patients health status, clinical progression and re- assessment by fellow clinical providers in the ED. Further treatment and workup at subsequent clinical providers discretion. Patient/guardian urged not to elope from the ED as their condition may be serious if not clinically assessed and managed. Initial orders include: Labs
[2019-05-20 13:23] LABS: Basophils # (Auto) 0.1 K/mm3 (0.0-0.1); Eosinophils # (Auto) 0.5 K/mm3 (0.0-0.4); Eosinophils % (Auto) 5.8 % (0.0-4.3); Hematocrit 42.1 % (30.3-42.9); Hemoglobin 13.7 gm/dl (10.1-14.3); Lymphocytes # (Auto) 1.9 K/mm3 (1.2-5.4); Lymphocytes % (Auto) 20.8 % (13.4-35.0); Mean Corpuscular HGB Conc 33 % (30-34); Mean Corpuscular Volume 85 fl (79-97); Monocytes # (Auto) 0.7 K/mm3 (0.0-0.8); Monocytes % (Auto) 7.9 % (0.0-7.3); Platelet Count 248 K/mm3 (140-440); Red Blood Count 4.97 M/mm3 (3.65-5.03); Red Cell Distribution Width 14.1 % (13.2-15.2)
[2019-05-20 13:48] LABS: Alanine Aminotransferase 15 units/L (7-56); BUN/Creatinine Ratio 13; Blood Urea Nitrogen 12 mg/dL (7-17); Hemolysis Index 12
[2019-05-20 13:57] LABS: Bilirubin,Urine NEG (Negative); Blood,Urine NEG (Negative); Color,Urine Yellow (Yellow); Mucus,Urine 3+ /HPF; Protein,Urine <15 mg/dL mg/dL (Negative); Urobilinogen,Urine < 2.0 mg/dL (<2.0)
[2019-05-20 13:58] LABS: RBC,Urine < 1.0 /HPF (0.0-6.0)
[2019-05-20 17:36] VITALS: BP 105/63
[2019-05-20] MEDS ORDERED: PEPCID IV ONE (17:51)
[2019-05-20] MEDS ORDERED: ZOFRAN IV ONE (17:59)
[2019-05-20] MEDS ORDERED: NACL 0.9% 1000 ML 1,000 ML IV ONE (17:59)
--- NOTE | 2019-05-20 18:07 | Emergency Department Report ---
ED Abdominal Pain HPI - General Chief Complaint: Abdominal Pain Stated Complaint: ABD PAIN/WEAKNESS OF LEGS Time Seen by Provider: 05/20/19 12:31 Source: patient Mode of arrival: Ambulatory Limitations: No Limitations - History of Present Illness Initial Comments: This is a 48-year-old female presents to ED complaining of abdominal pain for the past one week. She describes abdominal pain as crampy aching in nature and localized certainly need abdomen region. Patient denies fevers as chills/nausea vomiting or diarrhea. She states the pain is worsened with water and food. - Related Data Home Medications Medication Instructions Recorded Confirmed Last Taken Fluticasone/Salmeterol [Advair 1 puff PO Q4H 05/20/19 05/20/19 05/20/19 Diskus 500-50 mcg] Previous Rx's Medication Instructions Recorded Last Taken Type Levothyroxine [Synthroid] 88 mcg PO DAILY@0600 #30 tablet 01/16/19 05/20/19 Rx ALBUTEROL NEB's [Proventil 0.083% 2.5 mg IH TID PRN 30 Days nebu 04/06/19 05/20/19 Rx NEBS] traMADol [Ultram 50 MG tab] 50 mg PO Q6HR PRN #12 tablet 05/20/19 Unknown Rx Allergies Allergy/AdvReac Type Severity Reaction Status Date / Time doxycycline Allergy Rash Verified 07/04/18 11:09 ketorolac tromethamine Allergy Anaphylaxis Verified 07/04/18 11:09 [From Toradol] Latex, Natural Rubber Allergy Angioedema Verified 07/04/18 11:09 morphine Allergy Shortness Verified 07/04/18 11:09 of Breath azithromycin [From Zithromax] AdvReac Anaphylaxis Verified 07/04/18 11:09 NSAIDS (Non-Steroidal AdvReac Anaphylaxis Verified 07/04/18 11:09 Anti-Inflamma Penicillins AdvReac Hives Verified 07/04/18 11:09 ED Review of Systems ROS: Stated complaint: ABD PAIN/WEAKNESS OF LEGS Other details as noted in HPI Comment: All other systems reviewed and negative ED Past Medical Hx - Past Medical History Previous Medical History?: Yes Hx Hypertension: No Hx Heart Attack/AMI: No Hx Congestive Heart Failure: No Hx Diabetes: No Hx Deep Vein Thrombosis: No Hx Pulmonary Embolism: No Hx GERD: Yes Hx Liver Disease: No Hx Renal Disease: No Hx Sickle Cell Disease: No Hx Arthritis: No Hx Seizures: No Hx Kidney Stones: No Hx Asthma: Yes (chronic) Hx COPD: No Hx Tuberculosis: No Hx Dementia: No Hx HIV: No Additional medical history: sinus problems. Prior Intubations x3. Obesity. hypothyroid - Surgical History Hx Coronary Stent: No Hx Open Heart Surgery: No Hx Pacemaker: No Hx Internal Defibrillator: No Hx Cholecystectomy: No Hx Appendectomy: No Hx Breast Surgery: No Additional Surgical History: x4, umbilical hernia repair, sinus surgeries, D&C. thyroid removal. tubligation - Social History Smoking Status: Never Smoker Substance Use Type: None - Medications Home Medications: Home Medications Medication Instructions Recorded Confirmed Last Taken Type Levothyroxine [Synthroid] 88 mcg PO DAILY@0600 #30 tablet 01/16/19 05/20/19 05/20/19 Rx ALBUTEROL NEB's [Proventil 0.083% 2.5 mg IH TID PRN 30 Days nebu 04/06/19 05/20/19 05/20/19 Rx NEBS] Fluticasone/Salmeterol [Advair 1 puff PO Q4H 05/20/19 05/20/19 05/20/19 History Diskus 500-50 mcg] traMADol [Ultram 50 MG tab] 50 mg PO Q6HR PRN #12 tablet 05/20/19 Unknown Rx ED Physical Exam - General Limitations: No Limitations General appearance: alert, in no apparent distress - Head Head exam: Present: atraumatic, normocephalic - Eye Eye exam: Present: normal appearance - ENT ENT exam: Present: mucous membranes moist - Neck Neck exam: Present: normal inspection - Respiratory Respiratory exam: Present: normal lung sounds bilaterally. Absent: respiratory distress - Cardiovascular Cardiovascular Exam: Present: regular rate, normal rhythm. Absent: systolic murmur, diastolic murmur, rubs, gallop - GI/Abdominal GI/Abdominal exam: Present: soft, normal bowel sounds - Extremities Exam Extremities exam: Present: normal inspection - Back Exam Back exam: Present: normal inspection - Neurological Exam Neurological exam: Present: alert, oriented X3 - Psychiatric Psychiatric exam: Present: normal affect, normal mood - Skin Skin exam: Present: warm, dry, intact, normal color. Absent: rash ED Course Vital Signs 05/20/19 05/20/1905/20/19 12:31 14:37 17:05 Temperature 97.8 F 98.5 F Pulse Rate 77 70 Respiratory 18 16 16 Rate Blood Pressure 104/63 Blood Pressure 105/63 [Right] O2 Sat by Pulse 97 99 Oximetry 05/20/19 21:29 Temperature Pulse Rate 70 Respiratory 16 Rate Blood Pressure Blood Pressure [Right] O2 Sat by Pulse 97 Oximetry ED Medical Decision Making - Lab Data Result diagrams: 05/20/19 12:51 05/20/19 12:51 - Radiology Data Radiology results: report reviewed, image reviewed FINDINGS: Lung Bases: Clear. Skeletal System: No acute abnormality. There is mild bilateral femoral head ost eonecrosis anterior superiorly. This is unchanged. ABDOMEN: Liver: Normal. Gallbladder: Normal. Bile Ducts: Normal. Pancreas: Normal. Spleen: Normal. Adrenals: Normal. Right Kidney: Normal. Left Kidney: Normal. Stomach and Bowel: Normal. Lymph Nodes: No significant adenopathy. Aorta: No significant abnormality. Additional Findings: None. PELVIS: Colon: Normal . Urinary Bladder and Distal Ureters: Normal. Appendix: Normal. Lymph Nodes: No significant adenopathy. Additional Findings: Physiologic bilateral ovarian cysts are incidentally noted. IMPRESSION: 1. No acute process in the abdomen or pelvis. 2. Incidental findings, as above. Signer Name: Arron Bird MD Signed: 05/20/2019 8:26 PM Workstation Name: [id number] Transcribed By: SW Dictated By: Arron Bird MD Electronically Authenticated By: Arron Bird MD Signed Date/Time: 05/20/192025 - Medical Decision Making 48-year-old female presents with abdominal pain which is origin name from her ovarian cyst. Patient received a liter of fluids in the ED, Pepcid in ED. CT scan show some ovarian cysts No acute findings C report discussed findings with the patient. Discussed the patient to follow-up with primary care physician. Discussed follow-up with [facility] as well. Patient reports feeling better after Critical care attestation.: If time is entered above; I have spent that time in minutes in the direct care of this critically ill patient, excluding procedure time. ED Disposition Clinical Impression: Ovarian cyst, left, Abdominal pain Disposition: DC-01 TO HOME OR SELFCARE Is pt being admited?: No Does the pt Need Aspirin: No Condition: Stable Instructions: Ovarian Cyst (ED), Abdominal Pain (ED) Additional Instructions: Make sure to follow up with the primary care physician as discussed. Take all your medications as you've been prescribed. If you have any worsening symptoms or develop new symptoms please return to ED immediately. Prescriptions: traMADol [Ultram 50 MG tab] 50 mg PO Q6HR PRN #12 tablet PRN Reason: Pain Referrals: HIWOT BRUNO MD [Primary Care Provider] - 3-5 Days Forms: Work/School Release Form(ED) Time of Disposition: 21:09
[2019-05-20] MEDS ORDERED: BENADRYL IV ONE (19:27)
[2019-05-20] MEDS ORDERED: BENADRYL ONE (19:30)
--- NOTE | 2019-05-20 20:30 | Cat Scan Report ---
CT ABDOMEN AND PELVIS WITH IV CONTRAST INDICATION: Abdominal pain. COMPARISON: CT 02/17/2017. TECHNIQUE: All CT scans at this facility use dose modulation, automated exposure control, iterative reconstructi on or weight based dosing, when appropriate, to reduce radiation dose to as low as reasonably achieva ble. FINDINGS: Lung Bases: Clear. Skeletal System: No acute abnormality. There is mild bilateral femoral head osteonecrosis anterior s uperiorly. This is unchanged. ABDOMEN: Liver: Normal. Gallbladder: Normal. Bile Ducts: Normal. Pancreas: Normal. Spleen: Normal. Adrenals: Normal. Right Kidney: Normal. Left Kidney: Normal. Stomach and Bowel: Normal. Lymph Nodes: No significant adenopathy. Aorta: No significant abnormality. Additional Findings: None. PELVIS: Colon: Normal . Urinary Bladder and Distal Ureters: Normal. Appendix: Normal. Lymph Nodes: No significant adenopathy. Additional Findings: Physiologic bilateral ovarian cysts are incidentally noted. IMPRESSION: 1. No acute process in the abdomen or pelvis. 2. Incidental findings, as above. Signer Name: Arron Bird MD Signed: 05/20/2019 8:26 PM Workstation Name: [id number]
== END 2019-05-20 21:29 | disposition home or self-care (01) ==
LOC: ED 12:17
DX: N83.202 Unspecified ovarian cyst, left side (principal); K21.9 Gastro-esophageal reflux disease without esophagitis; J45.909 Unspecified asthma, uncomplicated; E03.9 Hypothyroidism, unspecified; Z98.51 Tubal ligation status; Z98.890 Other specified postprocedural states; Z79.899 Other long term (current) drug therapy; Z88.1 Allergy status to other antibiotic agents; Z88.6 Allergy status to analgesic agent; Z91.040 Latex allergy status; Z91.09 Other allergy status, other than to drugs and biological substances
CPT/HCPCS: 36415; 74177; 80053; 81001; 83690; 85025; 96374; 96375; 99284; J1200; J2405; J7030; Q9967

== ENCOUNTER 2019-05-27 21:40 | Emergency (ER) | payer MEDICARE ==
--- NOTE | 2019-05-27 21:56 | Event Note ---
ED Screening Note ED Screening Note: PMHx of asthma with intubations very poor air movement called respiratory and neb tx placed, will send to the MAIN for eval by This initial assessment/diagnostic orders/clinical plan/treatment(s) is/are subject to change based on patients health status, clinical progression and re- assessment by fellow clinical providers in the ED. Further treatment and workup at subsequent clinical providers discretion. Patient/guardian urged not to elope from the ED as their condition may be serious if not clinically assessed and managed. Initial orders include: neb tx, steroids, CXR
[2019-05-27] MEDS: PROVENTIL IH ONE (22:17)
[2019-05-27] MEDS: ATROVENT IH ONE (22:18)
--- NOTE | 2019-05-27 22:32 | Emergency Department Report ---
ED Shortness of Breath HPI - General Chief Complaint: Dyspnea/Respdistress Stated Complaint: SILVIANO Time Seen by Provider: 05/27/19 21:55 Source: patient Mode of arrival: Wheelchair Limitations: No Limitations - History of Present Illness Initial Comments: 48-year-old female, history of asthma, presents to ED with shortness of breath 2 hours. Patient states she used her nebulizer treatment at home without relief so decided to come to the ED. Patient denies fever or cough. MD Complaint: shortness of breath, "asthma attack" -: hour(s) (2) Severity: moderate Consistency: constant Improves With: nothing Worsens With: nothing Known History Of: asthma Treatments Prior to Arrival: bronchodilator - Related Data Home Medications Medication Instructions Recorded Confirmed Last Taken Fluticasone/Salmeterol [Advair 1 puff PO Q4H 05/20/19 05/20/19 05/20/19 Diskus 500-50 mcg] Previous Rx's Medication Instructions Recorded Last Taken Type Levothyroxine [Synthroid] 88 mcg PO DAILY@0600 #30 tablet 01/16/19 05/20/19 Rx ALBUTEROL NEB's [Proventil 0.083% 2.5 mg IH TID PRN 30 Days nebu 04/06/19 05/20/19 Rx NEBS] traMADol [Ultram 50 MG tab] 50 mg PO Q6HR PRN #12 tablet 05/20/19 Unknown Rx Albuterol Sulfate [Proventil Hfa] 2 puff IH Q4HR PRN #1 hfa.aer.ad 05/28/19 U nknown Rx predniSONE [Deltasone] 50 mg PO QDAY #5 tab 05/28/19 Unknown Rx Allergies Allergy/AdvReac Type Severity Reaction Status Date / Time doxycycline Allergy Rash Verified 07/04/18 11:09 ketorolac tromethamine Allergy Anaphylaxis Verified 07/04/18 11:09 [From Toradol] Latex, Natural Rubber Allergy Angioedema Verified 07/04/18 11:09 morphine Allergy Shortness Verified 07/04/18 11:09 of Breath azithromycin [From Zithromax] AdvReac Anaphylaxis Verified 07/04/18 11:09 NSAIDS (Non-Steroidal AdvReac Anaphylaxis Verified 07/04/18 11:09 Anti-Inflamma Penicillins AdvReac Hives Verified 07/04/18 11:09 ED Review of Systems ROS: Stated complaint: SILVIANO Other details as noted in HPI Comment: All other systems reviewed and negative Constitutional: denies: chills, fever Respiratory: shortness of breath, wheezing. denies: cough Cardiovascular: denies: chest pain ED Past Medical Hx - Past Medical History Previous Medical History?: Yes Hx Hypertension: No Hx Heart Attack/AMI: No Hx Congestive Heart Failure: No Hx Diabetes: No Hx Deep Vein Thrombosis: No Hx Pulmonary Embolism: No Hx GERD: Yes Hx Liver Disease: No Hx Renal Disease: No Hx Sickle Cell Disease: No Hx Arthritis: No Hx Seizures: No Hx Kidney Stones: No Hx Asthma: Yes (chronic) Hx COPD: No Hx Tuberculosis: No Hx Dementia: No Hx HIV: No Additional medical history: sinus problems. Prior Intubations x3. Obesity. hypothyroid - Surgical History Past Surgical History?: Yes Hx Coronary Stent: No Hx Open Heart Surgery: No Hx Pacemaker: No Hx Internal Defibrillator: No Hx Cholecystectomy: No Hx Appendectomy: No Hx Breast Surgery: No Additional Surgical History: x4, umbilical hernia repair, sinus surgeries, D&C. thyroid removal. tubligation - Social History Smoking Status: Never Smoker Substance Use Type: None - Medications Home Medications: Home Medications Medication Instructions Recorded Confirmed Last Taken Type Levothyroxine [Synthroid] 88 mcg PO DAILY@0600 #30 tablet 01/16/19 05/20/19 05/20/19 Rx ALBUTEROL NEB's [Proventil 0.083% 2.5 mg IH TID PRN 30 Days nebu 04/06/19 05/20/19 05/20/19 Rx NEBS] Fluticasone/Salmeterol [Advair 1 puff PO Q4H 05/20/19 05/20/19 05/20/19 History Diskus 500-50 mcg] traMADol [Ultram 50 MG tab] 50 mg PO Q6HR PRN #12 tablet 05/20/19 Unknown Rx Albuterol Sulfate [Proventil Hfa] 2 puff IH Q4HR PRN #1 hfa.aer.ad 05/28/19 Unknown Rx predniSONE [Deltasone] 50 mg PO QDAY #5 tab 05/28/19 Unknown Rx ED Physical Exam - General Limitations: No Limitations General appearance: alert, in no apparent distress - Head Head exam: Present: atraumatic, normocephalic - Eye Eye exam: Present: normal appearance, PERRL, EOMI - ENT ENT exam: Present: mucous membranes moist - Neck Neck exam: Present: normal inspection - Respiratory Respiratory exam: Present: wheezes - Cardiovascular Cardiovascular Exam: Present: regular rate, normal rhythm - GI/Abdominal GI/Abdominal exam: Absent: distended - Extremities Exam Extremities exam: Present: normal inspection - Neurological Exam Neurological exam: Present: alert, oriented X3 - Psychiatric Psychiatric exam: Present: normal affect, normal mood - Skin Skin exam: Present: warm, dry, intact, normal color ED Course Vital Signs 05/27/19 05/27/19 05/27/19 21:49 21:58 22:18 Temperature 98.2 F 98.2 F Pulse Rate 89 87 Pulse Rate [ 79 Anterior] Respiratory 20 20 Rate Respiratory 18 Rate [Anterior] Blood Pressure 136/84 136/84 O2 Sat by Pulse 94 91 Oximetry 05/27/19 05/27/19 05/28/19 23:30 23:45 00:00 Temperature Pulse Rate 70 62 Pulse Rate [ Anterior] Respiratory 15 15 15 Rate Respiratory Rate [Anterior] Blood Pressure 113/64 97/60 O2 Sat by Pulse 91 89 95 Oximetry 05/28/19 05/28/19 05/28/19 00:15 00:29 00:45 Temperature Pulse Rate 68 66 Pulse Rate [ 67 Anterior] Respiratory 13 14 Rate Respiratory 14 Rate [Anterior] Blood Pressure 113/64 97/60 O2 Sat by Pulse 97 100 Oximetry 05/28/19 02:04 Temperature 98 F Pulse Rate Pulse Rate [ Anterior] Respiratory Rate Respiratory Rate [Anterior] Blood Pressure O2 Sat by Pulse Oximetry ED Medical Decision Making - Radiology Data Radiology results: report reviewed, image reviewed - Medical Decision Making 48-year-old female with acute asthma exacerbation. Patient given 1 hour albuterol/Atrovent nebs, Decadron. Patient did have improvement in wheezing, however still some wheezing remaining, so magnesium sulfate and an additional albuterol/Atrovent nebulizer treatment was given. Patient was reassessed multiple times. After her last treatment patient resting comfortably on stretcher, with no respiratory distress, wheezing resolved, O2 sats normal.. Patient given the option of admission or discharge. Patient feels a to go home. Will discharge with prednisone and albuterol inhaler refill. Return precautions given. - Differential Diagnosis pneumonia, pulm edema, asthma Critical Care Time: Yes Critical care time in (mins) excluding proc time.: 35 Critical care attestation.: If time is entered above; I have spent that time in minutes in the direct care of this critically ill patient, excluding procedure time. Critical Care Time: 35 minutes ED Disposition Clinical Impression: Asthma with acute exacerbation Disposition: TO HOME OR SELFCARE Is pt being admited?: No Condition: Stable Instructions: Asthma (ED) Prescriptions: predniSONE [Deltasone] 50 mg PO QDAY #5 tab Albuterol Sulfate [Proventil Hfa] 2 puff IH Q4HR PRN #1 hfa.aer.ad PRN Reason: Wheezing Referrals: MARISOL BEARD MD [Primary Care Provider] - 3-5 Days PRIMARY CARE, [Referring] - 3-5 Days [facility] [Provider Group] - 3-5 Days Time of Disposition: 01:43
--- NOTE | 2019-05-27 22:35 | XRay Report ---
CHEST 2 VIEWS INDICATION / CLINICAL INFORMATION: SOB, asthma and SILVIANO starting 20 minutes ago. COMPARISON: 05/14/2019. FINDINGS: SUPPORT DEVICES: None. HEART / MEDIASTINUM: The heart size and pulmonary vasculature are normal. LUNGS / PLEURA: No significant pulmonary or pleural abnormality. No pneumothorax. ADDITIONAL FINDINGS: No significant additional findings. IMPRESSION: No acute abnormality or significant change. Signer Name: Jerson Jacques MD Signed: 05/27/2019 10:31 PM Workstation Name: [id number]
[2019-05-27] MEDS ORDERED: ZOFRAN ONE (23:07)
[2019-05-27] MEDS: DECADRON IM ONE (23:09)
[2019-05-27] MEDS: ZOFRAN IV ONE (23:11)
[2019-05-28] MEDS: MAGNESIUM SULFATE 2GM/50ML 2 GM/50 ML BAG IV ONE (00:17)
[2019-05-28] MEDS: PROVENTIL IH ONE (00:26)
[2019-05-28] MEDS: ATROVENT IH ONE (00:27)
[2019-05-28 02:04] VITALS: BP 97/60
== END 2019-05-28 02:29 | disposition home or self-care (01) ==
LOC: ED 21:40
DX: J45.901 Unspecified asthma with (acute) exacerbation (principal); K21.9 Gastro-esophageal reflux disease without esophagitis; E03.9 Hypothyroidism, unspecified; Z98.890 Other specified postprocedural states; Z98.51 Tubal ligation status; Z79.899 Other long term (current) drug therapy; Z88.0 Allergy status to penicillin; Z88.8 Allergy status to other drugs, medicaments and biological substances; Z88.6 Allergy status to analgesic agent; Z88.1 Allergy status to other antibiotic agents; Z91.040 Latex allergy status
CPT/HCPCS: 71046; 94640; 96365; 96372; 96375; 99291; J1100; J2405; J3475; 94644

== ENCOUNTER 2019-07-02 19:09 | Emergency (ER) | payer MEDICARE ==
[2019-07-02 19:22] VITALS: BP 131/81
--- NOTE | 2019-07-02 19:34 | Event Note ---
ED Screening Note Date of service: 07/02/19 Time: 19:32 ED Screening Note: This is a 48 y.o. F. that presents to the ER with headache and SOB for 1 day. Increased use of inhaler with history of asthma. This initial assessment/diagnostic orders/clinical plan/treatment(s) is/are subject to change based on patients health status, clinical progression and re- assessment by fellow clinical providers in the ED. Further treatment and workup at subsequent clinical providers discretion. Patient/guardian urged not to elope from the ED as their condition may be serious if not clinically assessed and managed. Initial orders include:
[2019-07-02] MEDS ORDERED: IPRATROPIUM/ALBUTEROL SULFATE 3 ML AMPUL.NEB IH ONE (20:49)
[2019-07-02] MEDS ORDERED: dexAMETHasone 20 MG/5 ML VIAL IM ONE (20:49)
--- NOTE | 2019-07-02 20:52 | Emergency Department Report ---
ED Shortness of Breath HPI - General Chief Complaint: Dyspnea/Respdistress Stated Complaint: DIFFICULTY IN BREATHING, HEADACHE Time Seen by Provider: 07/02/19 19:31 Source: patient Mode of arrival: Ambulatory Limitations: No Limitations - History of Present Illness Initial Comments: 48-year-old -[place] female presents to the emergency room complaining of nasal congestion shortness of breath and headache for 2 days. Patient reports she has a history of asthma. She complains of shortness of breath with exertion. Patient does admit to nasal congestion and headache that presents more pressure. Patient does admit to have any history of sinus issues. Patient reports she has been given herself but still having shortness of breath. Patien t denies any fever chills no sore throat. MD Complaint: shortness of breath Onset/Timin -: days(s) Pain Scale: 0 Consistency: intermittent Improves With: nothing Worsens With: lying flat, movement Known History Of: asthma Context: recent URI Associated Symptoms: cough, other (leg swelling) Treatments Prior to Arrival: bronchodilator - Related Data Home Oxygen Therapy: No Home Medications Medication Instructions Recorded Confirmed Last Taken Fluticasone/Salmeterol [Advair 1 puff PO Q4H 05/20/19 05/20/19 05/20/19 Diskus 500-50 mcg] Previous Rx's Medication Instructions Recorded Last Taken Type Levothyroxine [Synthroid] 88 mcg PO DAILY@0600 #30 tablet 01/16/19 05/20/19 Rx ALBUTEROL NEB's [Proventil 0.083% 2.5 mg IH TID PRN 30 Days nebu 04/06/19 05/20/19 Rx NEBS] traMADol [Ultram 50 MG tab] 50 mg PO Q6HR PRN #12 tablet 05/20/19 Unknown Rx Albuterol Sulfate [Proventil Hfa] 2 puff IH Q4HR PRN #1 hfa.aer.ad 05/28/19 Unknown Rx predniSONE [Deltasone] 50 mg PO QDAY #5 tab 05/28/19 Unknown Rx Prednisone [predniSONE 10 mg 10 mg PO .TAPER #1 tab.ds.pk 07/02/19 Unknown Rx (6-Day Pack, 21 Tabs)] levoFLOXacin [Levofloxacin] 500 mg PO QDAY #5 tablet 07/02/19 Unknown Rx Allergies Allergy/AdvReac Type Severity Reaction Status Date / Time doxycycline Allergy Rash Verified 06/20/19 14:55 ketorolac tromethamine Allergy Anaphylaxis Verified 06/20/19 14:55 [From Toradol] Latex, Natural Rubber Allergy Angioedema Verified 06/20/19 14:55 morphine Allergy Shortness Verified 06/20/19 14:55 of Breath azithromycin [From Zithromax] AdvReac Anaphylaxis Verified 06/20/19 14:55 NSAIDS (Non-Steroidal AdvReac Anaphylaxis Verified 06/20/19 14:55 Anti-Inflamma Penicillins AdvReac Hives Verified 06/20/19 14:55 ED Review of Systems ROS: Stated complaint: DIFFICULTY IN BREATHING, HEADACHE Other details as noted in HPI Comment: All other systems reviewed and negative ED Past Medical Hx - Past Medical History Previous Medical History?: Yes Hx Hypertension: No Hx Heart Attack/AMI: No Hx Congestive Heart Failure: No Hx Diabetes: No Hx Deep Vein Thrombosis: No Hx Pulmonary Embolism: No Hx GERD: Yes Hx Liver Disease: No Hx Renal Disease: No Hx Sickle Cell Disease: No Hx Arthritis: No Hx Seizures: No Hx Kidney Stones: No Hx Asthma: Yes (chronic) Hx COPD: No Hx Tuberculosis: No Hx Dementia: No Hx HIV: No Additional medical history: sinus problems. Prior Intubations x3. Obesity. hypothyroid - Surgical History Past Surgical History?: Yes Hx Coronary Stent: No Hx Open Heart Surgery: No Hx Pacemaker: No Hx Internal Defibrillator: No Hx Cholecystectomy: No Hx Appendectomy: No Hx Breast Surgery: No Additional Surgical History: x4, umbilical hernia repair, sinus surgeries, D&C. thyroid removal. tubligation - Social History Smoking Status: Never Smoker Substance Use Type: None - Medications Home Medications: Home Medications Medication Instructions Recorded Confirmed Last Taken Type Levothyroxine [Synthroid] 88 mcg PO DAILY@0600 #30 tablet 01/16/19 05/20/19 05/20/19 Rx ALBUTEROL NEB's [Proventil 0.083% 2.5 mg IH TID PRN 30 Days nebu 04/06/19 05/20/19 05/20/19 Rx NEBS] Fluticasone/Salmeterol [Advair 1 puff PO Q4H 05/20/19 05/20/19 05/20/19 History Diskus 500-50 mcg] traMADol [Ultram 50 MG tab] 50 mg PO Q6HR PRN #12 tablet 05/20/19 Unknown Rx Albuterol Sulfate [Proventil Hfa] 2 puff IH Q4HR PRN #1 hfa.aer.ad 05/28/19 Unknown Rx predniSONE [Deltasone] 50 mg PO QDAY #5 tab 05/28/19 Unknown Rx Prednisone [predniSONE 10 mg 10 mg PO .TAPER #1 tab.ds.pk 07/02/19 Unknown Rx (6-Day Pack, 21 Tabs)] levoFLOXacin [Levofloxacin] 500 mg PO QDAY #5 tablet 07/02/19 Unknown Rx ED Physical Exam - General Limitations: No Limitations General appearance: alert, in no apparent distress - Head Head exam: Present: atraumatic, normocephalic - Eye Eye exam: Present: normal appearance - ENT ENT exam: Present: mucous membranes moist - Respiratory Respiratory exam: Present: wheezes - Cardiovascular Cardiovascular Exam: Present: regular rate, normal rhythm. Absent: systolic murmur, diastolic murmur, rubs, gallop - GI/Abdominal GI/Abdominal exam: Present: soft, normal bowel sounds - Extremities Exam Extremities exam: Present: normal inspection, full ROM. Absent: pedal edema - Back Exam Back exam: Present: normal inspection - Neurological Exam Neurological exam: Present: alert, oriented X3, normal gait - Psychiatric Psychiatric exam: Present: normal affect, normal mood - Skin Skin exam: Present: warm, dry, intact, normal color. Absent: rash ED Course Vital Signs 07/02/19 07/02/19 19:14 21:07 Temperature 98.5 F Pulse Rate 78 Pulse Rate [ 75 Anterior Bilateral Throughout] Pulse Rate [ 72 Posterior Bilateral Throughout] Respiratory 22 Rate Respiratory 16 Rate [Anterior Bilateral Throughout] Respiratory 18 Rate [Posterior Bilateral Throughout] Blood Pressure 131/81 O2 Sat by Pulse 96 Oximetry - Reevaluation(s) Reevaluation #1: 07/02/19 20:51 Respiratory notified Maritza PERKINS will come down Reevaluation #2: 07/02/19 21:37 We assessed patient she still has mild expiratory wheeze bilateral 5 mg of albuterol has been ordered ED Medical Decision Making - Medical Decision Making 48-year-old -[place] female presents to the emergency room complaining of nasal congestion shortness of breath and headache for 2 days. Patient reports she has a history of asthma. She complains of shortness of breath with exertion. Patient does admit to nasal congestion and headache that presents more pressure. Patient does admit to have any history of sinus issues. Patient reports she has been given herself but still having shortness of breath. Patient denies any fever chills no sore throat. Asthma exacerbation. Patient be given dexamethasone 10 mg IM, dual neb and then I ordered albuterol 5 mg as patient was still having expiratory wheezing. I wi ll treat patient sinusitis with Levaquin 500mg since patient has an allergy to penicillin and doxycycline cyclamen as well as azithromycin. Patient is to follow-up with her primary care provider for symptoms persist or gets worse. She continue with her albuterol treatments at home as well as she's her Advair and fluticasone nasal spray. Critical care attestation.: If time is entered above; I have spent that time in minutes in the direct care of this critically ill patient, excluding procedure time. ED Disposition Clinical Impression: Shortness of breath Sinusitis Qualifiers: Sinusitis location: frontal Chronicity: acute Recurrence: non-recurrent Qualified Code(s): J01.10 - Acute frontal sinusitis, unspecified Asthma Qualifiers: Asthma severity: unspecified severity Asthma persistence: unspecified Asthma complication type: unspecified Qualified Code(s): J45.909 - Unspecified asthma, uncomplicated Disposition: DC-01 TO HOME OR SELFCARE Is pt being admited?: No Does the pt Need Aspirin: No Condition: Stable Instructions: Asthma (ED), Sinusitis (ED) Additional Instructions: Continue with her chronic medications for your asthma. Complete Levaquin for sinusitis. Please increase her water intake with taking medications and have an sinus infection. Follow-up with the primary care provider if his symptoms p ersist or gets worse. Prescriptions: levoFLOXacin [Levofloxacin] 500 mg PO QDAY #5 tablet Prednisone [predniSONE 10 mg (6-Day Pack, 21 Tabs)] 10 mg PO .TAPER #1 tab.[id number] Referrals: PRIMARY CARE, [Primary Care Provider] - 3-5 Days Forms: Work/School Release Form(ED)
[2019-07-02] MEDS ORDERED: ALBUTEROL 2.5 MG/3 ML NEBU IH ONE (21:35)
== END 2019-07-02 22:35 | disposition home or self-care (01) ==
LOC: ED 19:09
DX: J01.10 Acute frontal sinusitis, unspecified (principal); J45.909 Unspecified asthma, uncomplicated; Z91.040 Latex allergy status; Z88.0 Allergy status to penicillin; Z88.1 Allergy status to other antibiotic agents; Z88.5 Allergy status to narcotic agent; K21.9 Gastro-esophageal reflux disease without esophagitis; E03.9 Hypothyroidism, unspecified; E66.9 Obesity, unspecified; Z68.37 Body mass index [BMI] 37.0-37.9, adult; Z98.51 Tubal ligation status; Z79.899 Other long term (current) drug therapy
CPT/HCPCS: 94644; 96372; 99283; J1100; 94640

== ENCOUNTER 2019-08-17 20:01 | Emergency (ER) | payer MEDICARE ==
[2019-08-17] MEDS ORDERED: IPRATROPIUM 0.02% NEBU 2.5 ML IH ONE ×2 (21:40→23:58)
[2019-08-17] MEDS ORDERED: dexAMETHasone 20 MG/5 ML VIAL IM ONE (21:40)
[2019-08-17] MEDS ORDERED: ALBUTEROL 2.5 MG/3 ML NEBU IH ONE ×2 (21:40→23:58)
--- NOTE | 2019-08-17 21:40 | Emergency Department Report ---
Blank Doc - Documentation Documentation: 49-year-old female that presents with wheezing and SOB. HX of asthma. This initial assessment/diagnostic orders/clinical plan/treatment(s) is/are subject to change based on patient's health status, clinical progression and re- assessment by fellow clinical providers in the ED. Further treatment and workup at subsequent clinical providers discretion. Patient/guardians urged not to elope from the ED as their condition may be serious if not clinically assessed and managed. Initial orders include: 1- Patient sent to [facility] for further evaluation and treatment 2- breathing treatment/steroids
[2019-08-17 23:07] VITALS: BP 124/59
[2019-08-18] MEDS ORDERED: LIDOCAINE VISCOUS 2% 15 ML ORAL LIQD PO ONE (01:24)
[2019-08-18] MEDS ORDERED: ALUM-MAG HYDROXIDE-SIMETHICONE 200-200-20MG/5ML ORAL LIQD 30 ML PO ONE (01:24)
[2019-08-18] MEDS ORDERED: FAMOTIDINE 20 MG TAB PO ONE (01:25)
--- NOTE | 2019-08-18 01:30 | XRay Report ---
CHEST 2 VIEWS INDICATION / CLINICAL INFORMATION: cough, dyspnea, wheezing. COMPARISON: 05/14/2019 FINDINGS: SUPPORT DEVICES: None. HEART / MEDIASTINUM: No significant abnormality. LUNGS / PLEURA: No significant pulmonary or pleural abnormality. No pneumothorax. ADDITIONAL FINDINGS: No significant additional findings. IMPRESSION: 1. No acute findings. No interval change. Signer Name: Tami Broderick MD Signed: 08/18/2019 1:25 AM Workstation Name: [id number]
--- NOTE | 2019-08-18 01:31 | Emergency Department Report ---
- General Chief Complaint: Adult Asthma Stated Complaint: CHEST PAIN/DIFF BREATHING Time Seen by Provider: 08/17/19 21:38 Source: patient Mode of arrival: Ambulatory Limitations: No Limitations - History of Present Illness Initial Comments: Patient is a 49-year-old -[place] female with a history of hypertension, GERD, chronic sinusitis and asthma who presents to the ED with complaint of acute onset persistent nasal and sinus congestion, dry cough, wheezing or shortness of breath for the last 5 days, worse in the last 2 days. Patient states that he she has been using her albuterol nebulizer at home with no relief. Patient denies fever, chills, nausea, vomiting, abdominal pain, chest pain, change in vision, syncope, sore throat, dizziness, dysuria, urinary frequency and urgency and hemoptysis or palpitations. MD Complaint: cough, rhinorrhea, nasal congestion, sinus pain, other (wheezing with shortness of breath) -: Sudden, days(s) (5) Severity: moderate Severity scale (0 -10): 5 Quality: burning, aching Consistency: constant Improves With: nothing Worsens With: nothing Associated Symptoms: denies other symptoms, rhinorrhea, nasal congestion, cough, shortness of breath. denies: fever, chills, myalgias, diaphoresis, headache, stiff neck, chest pain, abdominal pain, nausea, vomiting, diarrhea, dysuria, rash, confusion, right sweats, ear pain Treatments Prior to Arrival: none - Related Data Home Medications Medication Instructions Recorded Confirmed Last Taken Fluticasone/Salmeterol [Advair 1 puff PO Q4H 05/20/19 05/20/19 05/20/19 Diskus 500-50 mcg] Previous Rx's Medication Instructions Recorded Last Taken Type Levothyroxine [Synthroid] 88 mcg PO DAILY@0600 #30 tablet 01/16/19 05/20/19 Rx ALBUTEROL NEB's [Proventil 0.083% 2.5 mg IH TID PRN 30 Days nebu 04/06/19 05/20/19 Rx NEBS] traMADol [Ultram 50 MG tab] 50 mg PO Q6HR PRN #12 tablet 05/20/19 Unknown Rx Albuterol Sulfate [Proventil Hfa] 2 puff IH Q4HR PRN #1 hfa.aer.ad 05/28/19 Unknown Rx predniSONE [Deltasone] 50 mg PO QDAY #5 tab 05/28/19 Unknown Rx Benzonatate [Tessalon Perles] 100 mg PO Q8HR #30 08/18/19 Unknown Rx Omeprazole 40 mg PO DAILY #30 capsule. 08/18/19 Unknown Rx Prednisone [predniSONE 10 mg 10 mg PO .TAPER #21 tab.ds.pk 08/18/19 Unknown Rx (6-Day Pack, 21 Tabs)] levoFLOXacin [Levofloxacin] 500 mg PO QDAY #10 tablet 08/18/19 Unknown Rx Allergies Allergy/AdvReac Type Severity Reaction Status Date / Time doxycycline Allergy Rash Verified 06/20/19 14:55 ketorolac tromethamine Allergy Anaphylaxis Verified 06/20/19 14:55 [From Toradol] Latex, Natural Rubber Allergy Angioedema Verified 06/20/19 14:55 morphine Allergy Shortness Verified 06/20/19 14:55 of Breath azithromycin [From Zithromax] AdvReac Anaphylaxis Verified 06/20/19 14:55 NSAIDS (Non-Steroidal AdvReac Anaphylaxis Verified 06/20/19 14:55 Anti-Inflamma Penicillins AdvReac Hives Verified 06/20/19 14:55 ED Review of Systems ROS: Stated complaint: CHEST PAIN/DIFF BREATHING Other details as noted in HPI Comment: All other systems reviewed and negative Constitutional: denies: chills, fever Eyes: denies: eye pain, eye discharge, vision change ENT: throat pain, congestion. denies: ear pain Respiratory: cough, shortness of breath, wheezing Cardiovascular: denies: chest pain, palpitations Endocrine: no symptoms reported Gastrointestinal: denies: abdominal pain, nausea, diarrhea Genitourinary: denies: urgency, dysuria, discharge Musculoskeletal: denies: back pain, joint swelling, arthralgia Skin: denies: rash, lesions Neurological: denies: headache, weakness, paresthesias Psychiatric: denies: anxiety, depression Hematological/Lymphatic: denies: easy bleeding, easy bruising ED Past Medical Hx - Past Medical History Previous Medical History?: Yes Hx Hypertension: No Hx Heart Attack/AMI: No Hx Congestive Heart Failure: No Hx Diabetes: No Hx Deep Vein Thrombosis: No Hx Pulmonary Embolism: No Hx GERD: Yes Hx Liver Disease: No Hx Renal Disease: No Hx Sickle Cell Disease: No Hx Arthritis: No Hx Seizures: No Hx Kidney Stones: No Hx Asthma: Yes (chronic) Hx COPD: No Hx Tuberculosis: No Hx Dementia: No Hx HIV: No Additional medical history: sinus problems. Prior Intubations x3. Obesity. hypothyroid - Surgical History Past Surgical History?: Yes Hx Coronary Stent: No Hx Open Heart Surgery: No Hx Pacemaker: No Hx Internal Defibrillator: No Hx Cholecystectomy: No Hx Appendectomy: No Hx Breast Surgery: No Additional Surgical History: x4, umbilical hernia repair, sinus surgeries, D&C. thyroid removal. tubligation - Social History Smoking Status: Never Smoker Substance Use Type: None - Medications Home Medications: Home Medications Medication Instructions Recorded Confirmed Last Taken Type Levothyroxine [Synthroid] 88 mcg PO DAILY@0600 #30 tablet 01/16/19 05/20/19 05/20/19 Rx ALBUTEROL NEB's [Proventil 0.083% 2.5 mg IH TID PRN 30 Days nebu 04/06/19 05/20/19 05/20/19 Rx NEBS] Fluticasone/Salmeterol [Advair 1 puff PO Q4H 05/20/19 05/20/19 05/20/19 History Diskus 500-50 mcg] traMADol [Ultram 50 MG tab] 50 mg PO Q6HR PRN #12 tablet 05/20/19 Unknown Rx Albuterol Sulfate [Proventil Hfa] 2 puff IH Q4HR PRN #1 hfa.aer.ad 05/28/19 Unknown Rx predniSONE [Deltasone] 50 mg PO QDAY #5 tab 05/28/19 Unknown Rx Benzonatate [Tessalon Perles] 100 mg PO Q8HR #30 08/18/19 Unknown Rx Omeprazole 40 mg PO DAILY #30 capsule.dr 08/18/19 Unknown Rx Prednisone [predniSONE 10 mg 10 mg PO .TAPER #21 tab.ds.pk 08/18/19 Unknown Rx (6-Day Pack, 21 Tabs)] levoFLOXacin [Levofloxacin] 500 mg PO QDAY #10 tablet 08/18/19 Unknown Rx ED Physical Exam - General Limitations: No Limitations General appearance: alert, in no apparent distress - Head Head exam: Present: atraumatic, normocephalic, normal inspection - Eye Eye exam: Present: normal appearance, PERRL, EOMI Pupils: Present: normal accommodation - ENT ENT exam: Present: normal orophraynx, mucous membranes moist, TM's normal bilaterally, normal external ear exam, other (grossly congested nasal passages with palpable maxillary and frontal sinus tenderness) - Neck Neck exam: Present: normal inspection, full ROM - Respiratory Respiratory exam: Present: wheezes (moderately diffuse coarse wheezes throughout). Absent: respiratory distress, rales, rhonchi, chest wall tenderness, accessory muscle use, decreased breath sounds, prolonged expiratory - Cardiovascular Cardiovascular Exam: Present: regular rate, normal rhythm, normal heart sounds. Absent: systolic murmur, diastolic murmur, rubs, gallop - GI/Abdominal GI/Abdominal exam: Present: soft, normal bowel sounds. Absent: tenderness, guarding, hyperactive bowel sounds, hypoactive bowel sounds, organomegaly - Extremities Exam Extremities exam: Present: normal inspection, full ROM, normal capillary refill - Back Exam Back exam: Present: normal inspection, full ROM. Absent: tenderness, muscle spasm, paraspinal tenderness - Neurological Exam Neurological exam: Present: alert, oriented X3, CN II-XII intact, normal gait, reflexes normal - Psychiatric Psychiatric exam: Present: normal affect, normal mood - Skin Skin exam: Present: warm, dry, intact, normal color. Absent: rash ED Course Vital Signs 08/17/19 08/17/19 08/17/19 20:05 20:07 21:50 Temperature 98.5 F 98.5 F Pulse Rate 88 85 Pulse Rate [ 78 Bilateral Throughout] Respiratory 18 18 Rate Respiratory 20 Rate [Bilateral Throughout] Blood Pressure 105/76 105/76 Blood Pressure [Right] O2 Sat by Pulse 96 96 Oximetry 08/17/19 08/18/19 23:06 00:02 Temperature Pulse Rate 78 Pulse Rate [ 79 Bilateral Throughout] Respiratory 18 Rate Respiratory 18 Rate [Bilateral Throughout] Blood Pressure Blood Pressure 124/59 [Right] O2 Sat by Pulse 96 Oximetry ED Medical Decision Making - Radiology Data Radiology results: report reviewed, image reviewed Chest x-ray shows no acute cardiopulmonary abnormalities or pneumonitis. - Medical Decision Making This is a 49-year-old female with a history of asthma presented to the ED with acute exacerbation of Sinus congestion, sinus pressure, dry cough with wheezing and shortness of breath. In the ED, patient is alert and oriented 3 and is not in distress, with normal vital signs and oxygen saturation of 96% in room air. Patient received DuoNeb 2, Decadron, and also treated with a GI cocktail and Pepcid for GERD. On reevaluation, patient wheezing has resolved and patient feeling much better. Chest x-ray shows no acute cardiopulmonary abnormalities or pn eumonitis. Patient was discharged home on steroid Dosepak, Tessalon Perles and Levaquin and advised to follow-up with her primary care physician in 2-3 days for reevaluation or return to the ED immediately if symptoms get worse. - Differential Diagnosis acute asthmatic bronchitis; acute URI; GERD; Chronic sinusitis; Pneumonia Critical care attestation.: If time is entered above; I have spent that time in minutes in the direct care of this critically ill patient, excluding procedure time. ED Disposition Clinical Impression: Acute bronchitis with asthma, Acute upper respiratory infection, Chronic sinusitis with recurrent bronchitis GERD (gastroesophageal reflux disease) Qualifiers: Esophagitis presence: without esophagitis Qualified Code(s): K21.9 - Gastro- esophageal reflux disease without esophagitis Disposition: TO HOME OR SELFCARE Is pt being admited?: No Does the pt Need Aspirin: No Condition: Stable Instructions: Chronic Bronchitis (ED), Asthma (ED), Acute Bacterial Rhinosinusitis (ED), Gastroesophageal Reflux Disease (ED) Additional Instructions: Take medications with food, drink plenty of fluids and follow up with your primary care physician in 3-5 days for reevaluation. Return to the ED immediately if symptoms get worse. Prescriptions: levoFLOXacin [Levofloxacin] 500 mg PO QDAY #10 tablet Omeprazole 40 mg PO DAILY #30 capsule. Prednisone [predniSONE 10 mg (6-Day Pack, 21 Tabs)] 10 mg PO .TAPER #21 tab.ds.pk Benzonatate [Tessalon Perles] 100 mg PO Q8HR #30 Referrals: PRIMARY CARE, [Primary Care Provider] - 3-5 Days Time of Disposition: 01:35 Print Language: JAPANESE
== END 2019-08-18 02:15 | disposition home or self-care (01) ==
LOC: ED 20:01
DX: J45.901 Unspecified asthma with (acute) exacerbation (principal); J06.9 Acute upper respiratory infection, unspecified; J32.9 Chronic sinusitis, unspecified; K21.9 Gastro-esophageal reflux disease without esophagitis; I10 Essential (primary) hypertension; E03.9 Hypothyroidism, unspecified; E66.9 Obesity, unspecified; Z68.38 Body mass index [BMI] 38.0-38.9, adult; Z88.1 Allergy status to other antibiotic agents; Z88.8 Allergy status to other drugs, medicaments and biological substances; Z91.040 Latex allergy status; Z79.899 Other long term (current) drug therapy; Z88.0 Allergy status to penicillin; Z88.5 Allergy status to narcotic agent; Z88.7 Allergy status to serum and vaccine
CPT/HCPCS: 71046; 94640; 94644; 96372; 99284; J1100

== ENCOUNTER 2019-08-31 16:03 | Emergency (ER) | payer MEDICARE ==
[2019-08-31 17:00] VITALS: BP 125/77
[2019-08-31] MEDS ORDERED: methylPREDNISolone Sod Succinate 125 MG/2 ML INJ IV ONE (17:01)
[2019-08-31] MEDS ORDERED: IPRATROPIUM 0.02% NEBU 2.5 ML IH ONE (17:01)
[2019-08-31] MEDS ORDERED: ALBUTEROL 2.5 MG/3 ML NEBU IH ONE (17:01)
--- NOTE | 2019-08-31 17:01 | Event Note ---
ED Screening Note ED Screening Note: PMHx asthma uses the neb tx and inhaler, advair at home wheezing, SOB that began last night no fever no productive cough non smoker not around any smokers This initial assessment/diagnostic orders/clinical plan/treatment(s) is/are subject to change based on patients health status, clinical progression and re- assessment by fellow clinical providers in the ED. Further treatment and workup at subsequent clinical providers discretion. Patient/guardian urged not to elope from the ED as their condition may be serious if not clinically assessed and managed. Initial orders include: neb tx, steroids
[2019-08-31] MEDS ORDERED: ONDANSETRON 4 MG/2 ML INJ ONE (17:50)
[2019-08-31] MEDS ORDERED: ONDANSETRON 4 MG/2 ML INJ IV ONE (17:51)
--- NOTE | 2019-08-31 18:49 | Emergency Department Report ---
ED Asthma HPI - General Chief Complaint: Adult Asthma Stated Complaint: ASTHMA ATTACK Time Seen by Provider: 08/31/19 16:59 Source: patient Mode of arrival: Ambulatory Limitations: No Limitations - History of Present Illness Initial Comments: PMHx asthma uses the neb tx and inhaler, advair at home wheezing, SOB that began last night no fever no productive cough non smoker not around any smokers - Related Data Home Medications Medication Instructions Recorded Confirmed Last Taken Fluticasone/Salmeterol [Advair 1 puff PO Q4H 05/20/19 05/20/19 05/20/19 Diskus 500-50 mcg] Previous Rx's Medication Instructions Recorded Last Taken Type Levothyroxine [Synthroid] 88 mcg PO DAILY@0600 #30 tablet 01/16/19 05/20/19 Rx traMADoL [Ultram 50 MG tab] 50 mg PO Q6HR PRN #12 tablet 05/20/19 Unknown Rx Albuterol Sulfate [Proventil Hfa] 2 puff IH Q4HR PRN #1 hfa.aer.ad 05/28/19 Unknown Rx predniSONE [Deltasone] 50 mg PO QDAY #5 tab 05/28/19 Unknown Rx Benzonatate [Tessalon Perles] 100 mg PO Q8HR #30 08/18/19 Unknown Rx Omeprazole 40 mg PO DAILY #30 capsule.dr 08/18/19 Unknown Rx levoFLOXacin [Levofloxacin] 500 mg PO QDAY #10 tablet 08/18/19 Unknown Rx ALBUTEROL NEB's [Proventil 0.083% 2.5 mg IH TID PRN 30 Days nebu 08/31/19 Unknown Rx NEBS] Cetirizine HCl [Zyrtec 10mg tab] 10 mg PO QDAY #7 tablet 08/31/19 Unknown Rx Prednisone [predniSONE 10 mg 10 mg PO .TAPER #21 tab.ds.pk 08/31/19 Unknown Rx (6-Day Pack, 21 Tabs)] Allergies Allergy/AdvReac Type Severity Reaction Status Date / Time doxycycline Allergy Rash Verified 08/31/19 16:04 ketorolac tromethamine Allergy Anaphylaxis Verified 08/31/19 16:04 [From Toradol] Latex, Natural Rubber Allergy Angioedema Verified 08/31/19 16:04 morphine Allergy Shortness Verified 08/31/19 16:04 of Breath azithromycin [From Zithromax] AdvReac Anaphylaxis Verified 08/31/19 16:04 NSAIDS (Non-Steroidal AdvReac Anaphylaxis Verified 08/31/19 16:04 Anti-Inflamma Penicillins AdvReac Hives Verified 08/31/19 16:04 ED Review of Systems ROS: Stated complaint: ASTHMA ATTACK Other details as noted in HPI ED Past Medical Hx - Past Medical History Hx Hypertension: No Hx Heart Attack/AMI: No Hx Congestive Heart Failure: No Hx Diabetes: No Hx Deep Vein Thrombosis: No Hx Pulmonary Embolism: No Hx GERD: Yes Hx Liver Disease: No Hx Renal Disease: No Hx Sickle Cell Disease: No Hx Arthritis: No Hx Seizures: No Hx Kidney Stones: No Hx Asthma: Yes (chronic) Hx COPD: No Hx Tuberculosis: No Hx Dementia: No Hx HIV: No Additional medical history: sinus problems. Prior Intubations x3. Obesity. hypothyroid - Surgical History Hx Coronary Stent: No Hx Open Heart Surgery: No Hx Pacemaker: No Hx Internal Defibrillator: No Hx Cholecystectomy: No Hx Appendectomy: No Hx Breast Surgery: No Additional Surgical History: x4, umbilical hernia repair, sinus surgeries, D&C. thyroid removal. tubligation - Social History Smoking Status: Never Smoker - Medications Home Medications: Home Medications Medication Instructions Recorded Confirmed Last Taken Type Levothyroxine [Synthroid] 88 mcg PO DAILY@0600 #30 tablet 01/16/19 05/20/19 05/20/19 Rx Fluticasone/Salmeterol [Advair 1 puff PO Q4H 05/20/19 05/20/19 05/20/19 History Diskus 500-50 mcg] traMADoL [Ultram 50 MG tab] 50 mg PO Q6HR PRN #12 tablet 05/20/19 Unknown Rx Albuterol Sulfate [Proventil Hfa] 2 puff IH Q4HR PRN #1 hfa.aer.ad 05/28/19 Unknown Rx predniSONE [Deltasone] 50 mg PO QDAY #5 tab 05/28/19 Unknown Rx Benzonatate [Tessalon Perles] 100 mg PO Q8HR #30 08/18/19 Unknown Rx Omeprazole 40 mg PO DAILY #30 capsule.dr 08/18/19 Unknown Rx levoFLOXacin [Levofloxacin] 500 mg PO QDAY #10 tablet 08/18/19 Unknown Rx ALBUTEROL NEB's [Proventil 0.083% 2.5 mg IH TID PRN 30 Days nebu 08/31/19 Unknown Rx NEBS] Cetirizine HCl [Zyrtec 10mg tab] 10 mg PO QDAY #7 tablet 08/31/19 Unknown Rx Prednisone [predniSONE 10 mg 10 mg PO .TAPER #21 tab.ds.pk 08/31/19 Unknown Rx (6-Day Pack, 21 Tabs)] ED Physical Exam - General Limitations: No Limitations ED Course Vital Signs 08/31/19 16:15 Temperature 98.2 F Pulse Rate 80 Respiratory 22 Rate Blood Pressure 125/77 [Right] O2 Sat by Pulse 99 Oximetry ED Medical Decision Making - Medical Decision Making PMHx asthma uses the neb tx and inhaler, advair at home wheezing, SOB that began last night no fever no productive cough non smoker not around any smokers Patient had a DuoNeb, Solu-Medrol which she feels much better. Critical care attestation.: If time is entered above; I have spent that time in minutes in the direct care of this critically ill patient, excluding procedure time. ED Disposition Clinical Impression: Asthma with acute exacerbation, GERD (gastroesophageal reflux disease) Disposition: DC- TO HOME OR SELFCARE Is pt being admited?: No Does the pt Need Aspirin: No Condition: Stable Instructions: Asthma (ED) Additional Instructions: Try taking [id number] Zyrtec's and Zantac's for GERD and allergies. Prescriptions: Prednisone [predniSONE 10 mg (6-Day Pack, 21 Tabs)] 10 mg PO .TAPER #21 tab.ds.pk ALBUTEROL NEB's [Proventil 0.083% NEBS] 2.5 mg IH TID PRN 30 Days nebu PRN Reason: Wheezing Cetirizine HCl [Zyrtec 10mg tab] 10 mg PO QDAY #7 tablet Referrals: Your,Primary Care [Other] - 3-5 Days
== END 2019-08-31 19:09 | disposition home or self-care (01) ==
LOC: ED 16:03
DX: J45.901 Unspecified asthma with (acute) exacerbation (principal); K21.9 Gastro-esophageal reflux disease without esophagitis; Z98.890 Other specified postprocedural states; Z79.899 Other long term (current) drug therapy; Z88.1 Allergy status to other antibiotic agents; Z88.6 Allergy status to analgesic agent; Z91.040 Latex allergy status; Z88.8 Allergy status to other drugs, medicaments and biological substances; Z88.0 Allergy status to penicillin
CPT/HCPCS: 94640; 96374; 96375; 99282; J2405; J2930

== ENCOUNTER 2019-09-30 23:06 | Emergency (ER) | payer MEDICARE | END 2019-10-01 03:00 | disposition left against medical advice (07) | LOC: ED 23:06 | CPT/HCPCS: 99282 ==

== ENCOUNTER 2019-10-16 12:42 | Emergency (ER) | payer MEDICARE ==
[2019-10-16] MEDS ORDERED: IPRATROPIUM 0.02% NEBU 2.5 ML IH ONE ×2 (12:58→13:15)
[2019-10-16] MEDS ORDERED: ALBUTEROL 2.5 MG/3 ML NEBU IH ONE ×2 (12:58→13:15)
[2019-10-16 13:14] VITALS: BP 151/82
[2019-10-16] MEDS ORDERED: dexAMETHasone 20 MG/5 ML VIAL IV ONE (13:15)
--- NOTE | 2019-10-16 13:17 | Event Note ---
ED Screening Note Date of service: 10/16/19 Time: 13:12 ED Screening Note: 49 y/o female comes in for SILVIANO times 2 day. History of asthma taking treatment at home. Got flu vaccine this year UTD on Pne vaccine. Wheezing This initial assessment/diagnostic orders/clinical plan/treatment(s) is/are subject to change based on patients health status, clinical progression and re- assessment by fellow clinical providers in the ED. Further treatment and workup at subsequent clinical providers discretion. Patient/guardian urged not to elope from the ED as their condition may be serious if not clinically assessed and managed. Initial orders include:
[2019-10-16] MEDS ORDERED: MAGNESIUM SULFATE 2 GM/50 ML BAG IV ONE (13:40)
--- NOTE | 2019-10-16 13:44 | Emergency Department Report ---
ED Shortness of Breath HPI - General Chief Complaint: Dyspnea/Respdistress Stated Complaint: CHRONIC ASTHMA Time Seen by Provider: 10/16/19 13:12 Source: patient Mode of arrival: Ambulatory Limitations: No Limitations - History of Present Illness Initial Comments: Neri is a 49-year-old -[place] female who presents to the emergency room with dyspnea for 2 days. Past medical history of asthma, GERD, type 2 diabetes, and obesity. She reports increased use of nebulized treatments without relief. She reports worsening symptoms with exertion. She denies fever, cough, chills, chest pain, or palpitations. MD Complaint: shortness of breath Onset/Timin -: days(s) Improves With: nothing Worsens With: lying flat, exertion Known History Of: asthma, diabetes Context: occured during exertion, allergen exposure Associated Symptoms: denies other symptoms Treatments Prior to Arrival: bronchodilator - Related Data Home Medications Medication Instructions Recorded Confirmed Last Taken Fluticasone/Salmeterol [Advair 1 puff PO Q4H 05/20/19 05/20/19 05/20/19 Diskus 500-50 mcg] Previous Rx's Medication Instructions Recorded Last Taken Type Levothyroxine [Synthroid] 88 mcg PO DAILY@0600 #30 tablet 01/16/19 05/20/19 Rx traMADoL [Ultram 50 MG tab] 50 mg PO Q6HR PRN #12 tablet 05/20/19 Unknown Rx Albuterol Sulfate [Proventil Hfa] 2 puff IH Q4HR PRN #1 hfa.aer.ad 05/28/19 Unknown Rx predniSONE [Deltasone] 50 mg PO QDAY #5 tab 05/28/19 Unknown Rx Benzonatate [Tessalon Perles] 100 mg PO Q8HR #30 08/18/19 Unknown Rx Omeprazole 40 mg PO DAILY #30 capsule.dr 08/18/19 Unknown Rx levoFLOXacin [Levofloxacin] 500 mg PO QDAY #10 tablet 08/18/19 Unknown Rx Cetirizine HCl [Zyrtec 10mg tab] 10 mg PO QDAY #7 tablet 08/31/19 Unknown Rx ALBUTEROL NEB's [Proventil 0.083% 2.5 mg IH TID PRN 30 Days #1 nebu 10/16/19 Unknown Rx NEBS] Prednisone [predniSONE 10 mg 10 mg PO .TAPER #21 tab.ds.pk 10/16/19 Unknown Rx (6-Day Pack, 21 Tabs)] Allergies Allergy/AdvReac Type Severity Reaction Status Date / Time doxycycline Allergy Rash Verified 08/31/19 16:04 ketorolac tromethamine Allergy Anaphylaxis Verified 08/31/19 16:04 [From Toradol] Latex, Natural Rubber Allergy Angioedema Verified 08/31/19 16:04 morphine Allergy Shortness Verified 08/31/19 16:04 of Breath azithromycin [From Zithromax] AdvReac Anaphylaxis Verified 08/31/19 16:04 NSAIDS (Non-Steroidal AdvReac Anaphylaxis Verified 08/31/19 16:04 Anti-Inflamma Penicillins AdvReac Hives Verified 08/31/19 16:04 ED Review of Systems ROS: Stated complaint: CHRONIC ASTHMA Other details as noted in HPI Constitutional: denies: chills, fever ENT: denies: ear pain, throat pain Respiratory: shortness of breath, SOB with exertion. denies: cough, wheezing Cardiovascular: denies: chest pain, palpitations Gastrointestinal: denies: abdominal pain, nausea, diarrhea Musculoskeletal: denies: back pain, joint swelling, arthralgia Skin: denies: rash, lesions Neurological: denies: headache, weakness, paresthesias Psychiatric: denies: anxiety, depression ED Past Medical Hx - Past Medical History Hx Hypertension: No Hx Heart Attack/AMI: No Hx Congestive Heart Failure: No Hx Diabetes: No Hx Deep Vein Thrombosis: No Hx Pulmonary Embolism: No Hx GERD: Yes Hx Liver Disease: No Hx Renal Disease: No Hx Sickle Cell Disease: No Hx Arthritis: No Hx Seizures: No Hx Kidney Stones: No Hx Asthma: Yes (chronic) Hx COPD: No Hx Tuberculosis: No Hx Dementia: No Hx HIV: No Additional medical history: sinus problems. Prior Intubations x3. Obesity. hypothyroid - Surgical History Hx Coronary Stent: No Hx Open Heart Surgery: No Hx Pacemaker: No Hx Internal Defibrillator: No Hx Cholecystectomy: No Hx Appendectomy: No Hx Breast Surgery: No Additional Surgical History: x4, umbilical hernia repair, sinus surger ies, D&C. thyroid removal. tubligation - Social History Smoking Status: Never Smoker Substance Use Type: None - Medications Home Medications: Home Medications Medication Instructions Recorded Confirmed Last Taken Type Levothyroxine [Synthroid] 88 mcg PO DAILY@0600 #30 tablet 01/16/19 05/20/19 05/20/19 Rx Fluticasone/Salmeterol [Advair 1 puff PO Q4H 05/20/19 05/20/19 05/20/19 History Diskus 500-50 mcg] traMADoL [Ultram 50 MG tab] 50 mg PO Q6HR PRN #12 tablet 05/20/19 Unknown Rx Albuterol Sulfate [Proventil Hfa] 2 puff IH Q4HR PRN #1 hfa.aer.ad 05/28/19 Unknown Rx predniSONE [Deltasone] 50 mg PO QDAY #5 tab 05/28/19 Unknown Rx Benzonatate [Tessalon Perles] 100 mg PO Q8HR #30 08/18/19 Unknown Rx Omeprazole 40 mg PO DAILY #30 capsule.dr 08/18/19 Unknown Rx levoFLOXacin [Levofloxacin] 500 mg PO QDAY #10 tablet 08/18/19 Unknown Rx Cetirizine HCl [Zyrtec 10mg tab] 10 mg PO QDAY #7 tablet 08/31/19 Unknown Rx ALBUTEROL NEB's [Proventil 0.083% 2.5 mg IH TID PRN 30 Days #1 nebu 10/16/19 Unknown Rx NEBS] Prednisone [predniSONE 10 mg 10 mg PO .TAPER #21 tab.ds.pk 10/16/19 Unknown Rx (6-Day Pack, 21 Tabs)] ED Physical Exam - General Limitations: No Limitations General appearance: alert, in no apparent distress, obese - ENT ENT exam: Present: mucous membranes moist - Respiratory Respiratory exam: Present: normal lung sounds bilaterally, wheezes. Absent: respiratory distress, rales, rhonchi, stridor, chest wall tenderness, accessory muscle use - Cardiovascular Cardiovascular Exam: Present: regular rate, normal rhythm. Absent: systolic murmur, diastolic murmur, rubs, gallop - GI/Abdominal GI/Abdominal exam: Present: soft, normal bowel sounds - Neurological Exam Neurological exam: Present: alert, oriented X3, normal gait - Psychiatric Psychiatric exam: Present: normal affect, normal mood - Skin Skin exam: Present: warm, dry, intact, normal color. Absent: rash ED Course Vital Signs 10/16/19 10/16/19 13:12 14:00 Temperature 98.1 F Pulse Rate 80 Pulse Rate [ 82 Anterior Bilateral Throughout] Respiratory 22 Rate Respiratory 17 Rate [Anterior Bilateral Throughout] Blood Pressure 151/82 ED Medical Decision Making - Medical Decision Making This is a 49-year-old female with shortness of breath. Past medical history of asthma, GERD, and type 2 diabetes. Nonsmoker. Vitals are stable. No AMS, silent respirations, belly-breathing, or other sign of impending ventilatory failure. Defer labs and imaging given clinically in exacerbation of known asthma with similar exacerbation presentations per patient. Given neb treatments x 2 and dexamethasone IV. On reassessment improvement of wheezing patient reports continued discomfort/SOB. Given magnesium sulfate. Patient was reassessed multiple times. Wheezes resolved. Patient reports feeling better and ready to go home. Asthma exacerbation, Start albuterol and prednisone taper. Discharged home stable. Follow up with primary care doctor. Critical care attestation.: If time is entered above; I have spent that time in minutes in the direct care of this critically ill patient, excluding procedure time. ED Disposition Clinical Impression: Shortness of breath Asthma with acute exacerbation Qualifiers: Asthma severity: moderate Asthma persistence: persistent Qualified Code(s): J45.41 - Moderate persistent asthma with (acute) exacerbation Disposition: DC- TO HOME OR SELFCARE Is pt being admited?: No Condition: Stable Instructions: Asthma (ED) Additional Instructions: It is important to use inhaler or have active albuterol inhaler and avoiding asthma triggers. Complete full course of prednisone steroids as prescribed. Follow up with Primary Care Provider in 24-72 hours. Prescriptions: Prednisone [predniSONE 10 mg (6-Day Pack, 21 Tabs)] 10 mg PO .TAPER #21 tab.ds.pk ALBUTEROL NEB's [Proventil 0.083% NEBS] 2.5 mg IH TID PRN 30 Days #1 nebu PRN Reason: Wheezing Referrals: INOCENTE MAC MD [Staff Physician] - 3-5 Days [facility], [facility] [Provider Group] - 3-5 Days [facility] [Provider Group] - 3-5 Days Forms: Work/School Release Form(ED) Time of Disposition: 16:25
[2019-10-16] MEDS ORDERED: IPRATROPIUM/ALBUTEROL SULFATE 3 ML AMPUL.NEB IH ONE (14:55)
== END 2019-10-16 16:52 | disposition home or self-care (01) ==
LOC: ED 12:42
DX: J45.21 Mild intermittent asthma with (acute) exacerbation (principal); K21.9 Gastro-esophageal reflux disease without esophagitis; E03.9 Hypothyroidism, unspecified; Z98.51 Tubal ligation status; Z98.890 Other specified postprocedural states; Z79.899 Other long term (current) drug therapy; Z91.041 Radiographic dye allergy status; Z88.1 Allergy status to other antibiotic agents; Z88.6 Allergy status to analgesic agent
CPT/HCPCS: 94640; 96365; 96375; 99283; J1100; J3475; 94644

== ENCOUNTER 2019-11-15 17:08 | Emergency (ER) | payer MEDICARE ==
[2019-11-15] MEDS ORDERED: IPRATROPIUM 0.02% NEBU 2.5 ML IH ONE (17:34)
[2019-11-15] MEDS ORDERED: dexAMETHasone 20 MG/5 ML VIAL IV ONE (17:34)
[2019-11-15] MEDS ORDERED: ALBUTEROL 2.5 MG/3 ML NEBU IH ONE ×2 (17:34→19:54)
--- NOTE | 2019-11-15 17:34 | Event Note ---
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 Further treatment and workup at subsequent clinical providers discretion. Patient/guardian urged not to elope from the ED as their condition may be serious if not clinically assessed and managed. Initial orders include: neb tx, steroids
[2019-11-15] MEDS ORDERED: IPRATROPIUM/ALBUTEROL SULFATE 3 ML AMPUL.NEB IH ONE ×2 (19:53)
[2019-11-15] MEDS ORDERED: methylPREDNISolone Sod Succinate 125 MG/2 ML INJ IM ONE (19:55)
--- NOTE | 2019-11-15 22:15 | XRay Report ---
CHEST 2 VIEWS INDICATION: dyspnea, asthma. COMPARISON: 08/18/2019. FINDINGS: Support devices: None. Heart: Within normal limits. Lungs/Pleura: No acute air space or interstitial disease. No significant pleural effusion. IMPRESSION: No acute findings. Signer Name: Robbi Duran MD Signed: 11/15/2019 10:10 PM Workstation Name: [id number]
--- NOTE | 2019-11-15 23:01 | Emergency Department Report ---
- General Chief Complaint: Adult Asthma Stated Complaint: CHRONIC ASTHMA/SILVIANO AFTER TREAT Time Seen by Provider: 11/15/19 17:30 Source: patient Mode of arrival: Ambulatory Limitations: No Limitations - History of Present Illness Initial Comments: Patient is a 49-year-old female with a history of asthma who presents to the ED with component of acute exacerbation of her chronic asthma characterized by shortness of breath, nasal and sinus congestion, wheezing despite using her albuterol nebulizer at home multiple times especially in the last 12 hours. Patient also states that she has been using her albuterol inhaler multiple times in the course of the date minimal relief. Patient denies fever, chills, nausea, vomiting, dizziness, chest pain, sore throat, abdominal pain, headache, syncope, palpitations or change in vision. MD Complaint: cough, nasal congestion, other (shortness of breath, wheezing) -: Sudden, days(s) (3) Severity: severe Severity scale (0 -10): 7 Quality: other (tightness) Consistency: intermittent Improves With: nothing Worsens With: nothing Context: other (weather changes) Associated Symptoms: denies other symptoms, rhinorrhea, nasal congestion, cough, shortness of breath. denies: fever, chills, myalgias, diaphoresis, headache, sore throat, abdominal pain, nausea, vomiting, diarrhea, rash, confusion, right sweats, weight loss, epistaxis, hoarseness, ear pain Treatments Prior to Arrival: none - Related Data Home Medications Medication Instructions Recorded Confirmed Last Taken Fluticasone/Salmeterol [Advair 1 puff PO Q4H 05/20/19 05/20/19 05/20/19 Diskus 500-50 mcg] Previous Rx's Medication Instructions Recorded Last Taken Type Levothyroxine [Synthroid] 88 mcg PO DAILY@0600 #30 tablet 01/16/19 05/20/19 Rx traMADoL [Ultram 50 MG tab] 50 mg PO Q6HR PRN #12 tablet 05/20/19 Unknown Rx Albuterol Sulfate [Proventil Hfa] 2 puff IH Q4HR PRN #1 hfa.aer.ad 05/28/19 Unknown Rx predniSONE [Deltasone] 50 mg PO QDAY #5 tab 05/28/19 Unknown Rx Benzonatate [Tessalon Perles] 100 mg PO Q8HR #30 08/18/19 Unknown Rx Omeprazole 40 mg PO DAILY #30 capsule.dr 08/18/19 Unknown Rx levoFLOXacin [Levofloxacin] 500 mg PO QDAY #10 tablet 08/18/19 Unknown Rx Cetirizine HCl [Zyrtec 10mg tab] 10 mg PO QDAY #7 tablet 08/31/19 Unknown Rx ALBUTEROL NEB's [Proventil 0.083% 2.5 mg IH TID PRN 30 Days #1 nebu 10/16/19 Unknown Rx NEBS] Benzonatate [Tessalon Perles] 100 mg PO Q8HR #30 capsule 11/15/19 Unknown Rx Prednisone [predniSONE 10 mg 10 mg PO .TAPER #21 tab.ds.pk 11/15/19 Unknown Rx (6-Day Pack, 21 Tabs)] Allergies Allergy/AdvReac Type Severity Reaction Status Date / Time doxycycline Allergy Rash Verified 08/31/19 16:04 ketorolac tromethamine Allergy Anaphylaxis Verified 08/31/19 16:04 [From Toradol] Latex, Natural Rubber Allergy Angioedema Verified 08/31/19 16:04 morphine Allergy Shortness Verified 08/31/19 16:04 of Breath azithromycin [From Zithromax] AdvReac Anaphylaxis Verified 08/31/19 16:04 NSAIDS (Non-Steroidal AdvReac Anaphylaxis Verified 08/31/19 16:04 Anti-Inflamma Penicillins AdvReac Hives Verified 08/31/19 16:04 ED Review of Systems ROS: Stated complaint: CHRONIC ASTHMA/SILVIANO AFTER TREAT Other details as noted in HPI Constitutional: denies: chills, fever Eyes: denies: eye pain, eye discharge, vision change ENT: denies: ear pain, throat pain Respiratory: cough, shortness of breath, wheezing Cardiovascular: denies: chest pain, palpitations Endocrine: no symptoms reported Gastrointestinal: denies: abdominal pain, nausea, diarrhea Genitourinary: denies: urgency, dysuria, discharge Musculoskeletal: denies: back pain, joint swelling, arthralgia Skin: denies: rash, lesions Neurological: denies: headache, weakness, paresthesias Psychiatric: denies: anxiety, depression Hematological/Lymphatic: denies: easy bleeding, easy bruising ED Past Medical Hx - Past Medical History Previous Medical History?: Yes Hx Hypertension: No Hx Heart Attack/AMI: No Hx Congestive Heart Failure: No Hx Diabetes: No Hx Deep Vein Thrombosis: No Hx Pulmonary Embolism: No Hx GERD: Yes Hx Liver Disease: No Hx Renal Disease: No Hx Sickle Cell Disease: No Hx Arthritis: No Hx Seizures: No Hx Kidney Stones: No Hx Asthma: Yes (chronic) Hx COPD: No Hx Tuberculosis: No Hx Dementia: No Hx HIV: No Additional medical history: sinus problems. Prior Intubations x3. Obesity. hypothyroid - Surgical History Past Surgical History?: Yes Hx Coronary Stent: No Hx Open Heart Surgery: No Hx Pacemaker: No Hx Internal Defibrillator: No Hx Cholecystectomy: No Hx Appendectomy: No Hx Breast Surgery: No Additional Surgical History: x4, umbilical hernia repair, sinus surgeries, D&C. thyroid removal. tubligation - Social History Smoking Status: Never Smoker Substance Use Type: None - Medications Home Medications: Home Medications Medication Instructions Recorded Confirmed Last Taken Type Levothyroxine [Synthroid] 88 mcg PO DAILY@0600 #30 tablet 01/16/19 05/20/19 05/20/19 Rx Fluticasone/Salmeterol [Advair 1 puff PO Q4H 05/20/19 05/20/19 05/20/19 History Diskus 500-50 mcg] traMADoL [Ultram 50 MG tab] 50 mg PO Q6HR PRN #12 tablet 05/20/19 Unknown Rx Albuterol Sulfate [Proventil Hfa] 2 puff IH Q4HR PRN #1 hfa.aer.ad 05/28/19 Unknown Rx predniSONE [Deltasone] 50 mg PO QDAY #5 tab 05/28/19 Unknown Rx Benzonatate [Tessalon Perles] 100 mg PO Q8HR #30 08/18/19 Unknown Rx Omeprazole 40 mg PO DAILY #30 capsule. 08/18/19 Unknown Rx levoFLOXacin [Levofloxacin] 500 mg PO QDAY #10 tablet 08/18/19 Unknown Rx Cetirizine HCl [Zyrtec 10mg tab] 10 mg PO QDAY #7 tablet 08/31/19 Unknown Rx ALBUTEROL NEB's [Proventil 0.083% 2.5 mg IH TID PRN 30 Days #1 nebu 10/16/19 Unknown Rx NEBS] Benzonatate [Tessalon Perles] 100 mg PO Q8HR #30 capsule 11/15/19 Unknown Rx Prednisone [predniSONE 10 mg 10 mg PO .TAPER #21 tab.ds.pk 11/15/19 Unknown Rx (6-Day Pack, 21 Tabs)] ED Physical Exam - General Limitations: No Limitations General appearance: alert, in no apparent distress - Head Head exam: Present: atraumatic, normocephalic - Eye Eye exam: Present: normal appearance, PERRL, EOMI Pupils: Present: normal accommodation - ENT ENT exam: Present: normal exam, normal orophraynx, mucous membranes moist, TM's normal bilaterally, normal external ear exam - Neck Neck exam: Present: normal inspection, full ROM. Absent: tenderness, lymphadenopathy, thyromegaly - Respiratory Respiratory exam: Present: wheezes (diffuse coarse moderate wheezes throughout). Absent: respiratory distress, rales, rhonchi, chest wall tenderness, accessory muscle use, decreased breath sounds, other - Cardiovascular Cardiovascular Exam: Present: normal rhythm, tachycardia, normal heart sounds. Absent: systolic murmur, diastolic murmur, rubs, gallop - GI/Abdominal GI/Abdominal exam: Present: soft, normal bowel sounds. Absent: tenderness, guarding, rebound, hyperactive bowel sounds, hypoactive bowel sounds - Extremities Exam Extremities exam: Present: normal inspection, full ROM, normal capillary refill - Back Exam Back exam: Present: normal inspection, full ROM. Absent: tenderness, CVA tenderness (R), CVA tenderness (L), muscle spasm, paraspinal tenderness, vertebral tenderness - Neurological Exam Neurological exam: Present: alert, oriented X3, CN II-XII intact, normal gait, reflexes normal - Psychiatric Psychiatric exam: Present: normal affect, normal mood - Skin Skin exam: Present: warm, dry, intact, normal color. Absent: rash ED Course Vital Signs 11/15/19 11/15/19 17:14 17:31 Temperature 98.9 F 98.9 F Pulse Rate 101 H 98 H Respiratory 20 20 Rate Blood Pressure 143/79 Blood Pressure 143/79 [Right] O2 Sat by Pulse 98 98 Oximetry ED Medical Decision Making - Radiology Data Radiology results: report reviewed, image reviewed Chest x-ray shows no acute cardiopulmonary abnormalities or pneumonitis, pleural effusion or pneumothorax - Medical Decision Making This is a 49-year-old female with a history of asthma and uses albuterol inhaler and nebulizers at home presented to the ED with persistent nasal and sinus congestion, dry cough with wheezing and shortness of breath for 3 days. In the ED, patient is alert and oriented 3 and is not in distress but slightly tachycardic in triage and afebrile. Patient received Duoneb treatment in the ED and also received Solu-Medrol intramuscular injection. Chest x-ray showed no acute cardiopulmonary abnormalities or pneumonitis. On reevaluation, patient presented resolved patient resting comfortably in the bed in no distress. Patient was discharged home and advised follow-up with her newspaper illustrator in the next 3-5 days for reevaluation or return to the ED immediately if symptoms get worse. - Differential Diagnosis Asthma exacerbation; bronchitis; Pneumonia; URI Critical care attestation.: If time is entered above; I have spent that time in minutes in the direct care of this critically ill patient, excluding procedure time. ED Disposition Clinical Impression: Shortness of breath, Acute upper respiratory infection Asthma with acute exacerbation Qualifiers: Asthma severity: mild Asthma persistence: intermittent Qualified Code(s): J45.21 - Mild intermittent asthma with (acute) exacerbation Disposition: DC-01 TO HOME OR SELFCARE Is pt being admited?: No Does the pt Need Aspirin: No Condition: Stable Instructions: Asthma (ED), Dyspnea (ED), Acute Bronchitis (ED), Upper Respiratory Infection (ED) Additional Instructions: Taking her regular medications as needed, drink plenty of fluids and follow-up with your newspaper illustrator or primary care physician in 3-5 days for reevaluation. Return to the ED immediately if symptoms get worse. Prescriptions: Prednisone [predniSONE 10 mg (6-Day Pack, 21 Tabs)] 10 mg PO .TAPER #21 tab.ds.pk Benzonatate [Tessalon Perles] 100 mg PO Q8HR #30 capsule Referrals: MARISOL BEARD MD [Staff Physician] - 3-5 Days Time of Disposition: 23:05 Print Language: POLISH
[2019-11-15 23:31] VITALS: BP 115/73
== END 2019-11-15 23:24 | disposition home or self-care (01) ==
LOC: ED 17:08
DX: J06.9 Acute upper respiratory infection, unspecified (principal); J45.901 Unspecified asthma with (acute) exacerbation; K21.9 Gastro-esophageal reflux disease without esophagitis; Z98.51 Tubal ligation status; Z98.890 Other specified postprocedural states; Z79.899 Other long term (current) drug therapy; Z91.040 Latex allergy status; Z88.8 Allergy status to other drugs, medicaments and biological substances; Z91.048 Other nonmedicinal substance allergy status
CPT/HCPCS: 71046; 94640; 96372; 99283; J2930

== ENCOUNTER 2019-11-30 20:10 | Emergency (ER) | payer MEDICARE ==
[2019-11-30 20:28] VITALS: BP 148/84
--- NOTE | 2019-11-30 20:29 | Event Note ---
ED Screening Note ED Screening Note: pt presents with asthma exacerbation that began today +wheezing +sob no fever no n/v/d PMHx chronic sinusitis, GERD allergy: doxycycline, toradol, NSAIDs, morphine, PCN LNMP: August This initial assessment/diagnostic orders/clinical plan/treatment(s) is/are subject to change based on patients health status, clinical progression and re- assessment by fellow clinical providers in the ED. Further treatment and workup at subsequent clinical providers discretion. Patient/guardian urged not to elope from the ED as their condition may be serious if not clinically assessed and managed. Initial orders include: neb tx, steroids
[2019-11-30] MEDS ORDERED: ALBUTEROL 2.5 MG/3 ML NEBU IH ONE (20:30)
[2019-11-30] MEDS ORDERED: IPRATROPIUM 0.02% NEBU 2.5 ML IH ONE (20:30)
[2019-11-30] MEDS ORDERED: dexAMETHasone 20 MG/5 ML VIAL IM ONE (20:30)
[2019-11-30] MEDS ORDERED: methylPREDNISolone Sod Succinate 125 MG/2 ML INJ IM ONE (22:49)
[2019-12-01] MEDS ORDERED: IPRATROPIUM 0.02% NEBU 2.5 ML IH ONE (00:44)
[2019-12-01] MEDS ORDERED: ALBUTEROL 2.5 MG/3 ML NEBU IH ONE ×2 (00:45→00:46)
[2019-12-01] MEDS ORDERED: diphenhydrAMINE 25 MG CAP PO STA (00:46)
[2019-12-01] MEDS ORDERED: EPINEPHrine/PF (1:1,000) 1 MG/1 ML INJ SUB-Q STA (00:46)
== END 2019-12-01 01:56 | disposition home or self-care (01) ==
LOC: ED 20:10
DX: J45.901 Unspecified asthma with (acute) exacerbation (principal); K21.9 Gastro-esophageal reflux disease without esophagitis; Z88.0 Allergy status to penicillin; Z88.8 Allergy status to other drugs, medicaments and biological substances; Z91.040 Latex allergy status; Z91.048 Other nonmedicinal substance allergy status
CPT/HCPCS: 94640; 96372; 99283; J0171; J2930; 94644; J1100

== ENCOUNTER 2019-12-15 22:17 | Emergency (ER) | payer MEDICARE ==
[2019-12-15] MEDS ORDERED: IPRATROPIUM/ALBUTEROL SULFATE 3 ML AMPUL.NEB IH ONE (22:29)
--- NOTE | 2019-12-15 22:32 | Event Note ---
ED Screening Note Date of service: 12/15/19 Time: 22:29 ED Screening Note: 49 y o f presents with asthma exacerbation mild wheezing This initial assessment/diagnostic orders/clinical plan/treatment(s) is/are subject to change based on patients health status, clinical progression and re-assessment by fellow clinical providers in the ED. Further treatment and workup at subsequent clinical providers discretion. Patient/guardian urged not to elope from the ED as their condition may be serious if not clinically assessed and managed. Initial orders include: duoneb ordered in triage
[2019-12-15] MEDS ORDERED: IPRATROPIUM 0.02% NEBU 2.5 ML IH ONE ×2 (22:40→22:47)
[2019-12-15] MEDS ORDERED: ALBUTEROL 2.5 MG/3 ML NEBU IH ONE ×2 (22:41→22:46)
[2019-12-15] MEDS ORDERED: predniSONE 20 MG TAB PO ONE (22:52)
--- NOTE | 2019-12-15 23:00 | Emergency Department Report ---
ED Asthma HPI - General Chief Complaint: Adult Asthma Stated Complaint: ASTHMA HEADACHE SOB Time Seen by Provider: 12/15/19 22:51 Source: patient Mode of arrival: Ambulatory Limitations: No Limitations - History of Present Illness Initial Comments: Mrs. Young is a 49-year-old female with severe persistent asthma who presents with shortness of breath wheezing cough for several days in spite home treatments albuterol nebulizer therapy. She denies chest pain. She denies fever. No history of tobacco use. MD Complaint: "asthma attack", shortness of breath -: Gradual, days(s) (Several days) Asthma History: history of frequent attac Severity: mild Context: none known Associated Symptoms: dry cough Treatments Prior to Arrival: inhaled bronchodilator - Related Data Home Medications Medication Instructions Recorded Confirmed Last Taken Fluticasone/Salmeterol [Advair 1 puff PO Q4H 05/20/19 05/20/19 05/20/19 Diskus 500-50 mcg] Previous Rx's Medication Instructions Recorded Last Taken Type Levothyroxine [Synthroid] 88 mcg PO DAILY@0600 #30 tablet 01/16/19 05/20/19 Rx traMADoL [Ultram 50 MG tab] 50 mg PO Q6HR PRN #12 tablet 05/20/19 Unknown Rx Albuterol Sulfate [Proventil Hfa] 2 puff IH Q4HR PRN #1 hfa.aer.ad 05/28/19 Unknown Rx predniSONE [Deltasone] 50 mg PO QDAY #5 tab 05/28/19 Unknown Rx Benzonatate [Tessalon Perles] 100 mg PO Q8HR #30 08/18/19 Unknown Rx Omeprazole 40 mg PO DAILY #30 capsule.dr 08/18/19 Unknown Rx levoFLOXacin [Levofloxacin] 500 mg PO QDAY #10 tablet 08/18/19 Unknown Rx Cetirizine HCl [Zyrtec 10mg tab] 10 mg PO QDAY #7 tablet 08/31/19 Unknown Rx ALBUTEROL NEB's [Proventil 0.083% 2.5 mg IH TID PRN 30 Days #1 nebu 10/16/19 Unknown Rx NEBS] Benzonatate [Tessalon Perles] 100 mg PO Q8HR #30 capsule 11/15/19 Unknown Rx Prednisone [predniSONE 10 mg 10 mg PO .TAPER #21 tab.ds.pk 11/15/19 Unknown Rx (6-Day Pack, 21 Tabs)] Montelukast [Singulair] 10 mg PO QPM #14 tablet 12/01/19 Unknown Rx predniSONE [Deltasone] 50 mg PO QDAY #5 tab 12/01/19 Unknown Rx ALBUTEROL NEB's [Proventil 0.083% 2.5 mg IH TID PRN #1 box 12/15/19 Unknown Rx NEBS] Prednisone [predniSONE 10 mg 10 mg PO .TAPER #1 tab.ds.pk 12/15/19 Unknown Rx (6-Day Pack, 21 Tabs)] Allergies Allergy/AdvReac Type Severity Reaction Status Date / Time doxycycline Allergy Rash Verified 08/31/19 16:04 ketorolac tromethamine Allergy Anaphylaxis Verified 08/31/19 16:04 [From Toradol] Latex, Natural Rubber Allergy Angioedema Verified 08/31/19 16:04 morphine Allergy Shortness Verified 08/31/19 16:04 of Breath azithromycin [From Zithromax] AdvReac Anaphylaxis Verified 08/31/19 16:04 NSAIDS (Non-Steroidal AdvReac Anaphylaxis Verified 08/31/19 16:04 Anti-Inflamma Penicillins AdvReac Hives Verified 08/31/19 16:04 ED Review of Systems ROS: Stated complaint: ASTHMA HEADACHE SOB Other details as noted in HPI Comment: All other systems reviewed and negative Constitutional: denies: fever, malaise Respiratory: cough, shortness of breath, wheezing Cardiovascular: denies: chest pain ED Past Medical Hx - Past Medical History Previous Medical History?: Yes Hx Hypertension: No Hx Heart Attack/AMI: No Hx Congestive Heart Failure: No Hx Diabetes: No Hx Deep Vein Thrombosis: No Hx Pulmonary Embolism: No Hx GERD: Yes Hx Liver Disease: No Hx Renal Disease: No Hx Sickle Cell Disease: No Hx Arthritis: No Hx Seizures: No Hx Kidney Stones: No Hx Asthma: Yes (chronic) Hx COPD: No Hx Tuberculosis: No Hx Dementia: No Hx HIV: No Additional medical history: sinus problems. Prior Intubations x3. Obesity. hypothyroid - Surgical History Hx Coronary Stent: No Hx Open Heart Surgery: No Hx Pacemaker: No Hx Internal Defibrillator: No Hx Cholecystectomy: No Hx Appendectomy: No Hx Breast Surgery: No Additional Surgical History: x4, umbilical hernia repair, sinus surgeries, D&C. thyroid removal. tubligation - Social History Smoking Status: Never Smoker - Medications Home Medications: Home Medications Medication Instructions Recorded Confirmed Last Taken Type Levothyroxine [Synthroid] 88 mcg PO DAILY@0600 #30 tablet 01/16/19 05/20/19 05/20/19 Rx Fluticasone/Salmeterol [Advair 1 puff PO Q4H 05/20/19 05/20/19 05/20/19 History Diskus 500-50 mcg] traMADoL [Ultram 50 MG tab] 50 mg PO Q6HR PRN #12 tablet 05/20/19 Unknown Rx Albuterol Sulfate [Proventil Hfa] 2 puff IH Q4HR PRN #1 hfa.aer.ad 05/28/19 Unknown Rx predniSONE [Deltasone] 50 mg PO QDAY #5 tab 05/28/19 Unknown Rx Benzonatate [Tessalon Perles] 100 mg PO Q8HR #30 08/18/19 Unknown Rx Omeprazole 40 mg PO DAILY #30 capsule.dr 08/18/19 Unknown Rx levoFLOXacin [Levofloxacin] 500 mg PO QDAY #10 tablet 08/18/19 Unknown Rx Cetirizine HCl [Zyrtec 10mg tab] 10 mg PO QDAY #7 tablet 08/31/19 Unknown Rx ALBUTEROL NEB's [Proventil 0.083% 2.5 mg IH TID PRN 30 Days #1 nebu 10/16/19 Unknown Rx NEBS] Benzonatate [Tessalon Perles] 100 mg PO Q8HR #30 capsule 11/15/19 Unknown Rx Prednisone [predniSONE 10 mg 10 mg PO .TAPER #21 tab.ds.pk 11/15/19 Unknown Rx (6-Day Pack, 21 Tabs)] Montelukast [Singulair] 10 mg PO QPM #14 tablet 12/01/19 Unknown Rx predniSONE [Deltasone] 50 mg PO QDAY #5 tab 12/01/19 Unknown Rx ALBUTEROL NEB's [Proventil 0.083% 2.5 mg IH TID PRN #1 box 12/15/19 Unknown Rx NEBS] Prednisone [predniSONE 10 mg 10 mg PO .TAPER #1 tab.ds.pk 12/15/19 Unknown Rx (6-Day Pack, 21 Tabs)] ED Physical Exam - General Limitations: No Limitations General appearance: alert, in no apparent distress, other (Speaking full word sentences, no work of breathing, patient appears well) - Head Head exam: Present: atraumatic, normocephalic - Eye Eye exam: Present: normal appearance - ENT ENT exam: Present: mucous membranes moist - Neck Neck exam: Present: normal inspection, full ROM - Respiratory Respiratory exam: Present: normal lung sounds bilaterally, rhonchi. Absent: respiratory distress, wheezes, rales, chest wall tenderness, accessory muscle use, decreased breath sounds, prolonged expiratory - Cardiovascular Cardiovascular Exam: Present: regular rate, normal rhythm, normal heart sounds. Absent: systolic murmur, diastolic murmur, rubs, gallop - GI/Abdominal GI/Abdominal exam: Present: soft, normal bowel sounds. Absent: distended, tenderness, guarding, rebound - Extremities Exam Extremities exam: Present: normal inspection - Neurological Exam Neurological exam: Present: alert, oriented X3 - Psychiatric Psychiatric exam: Present: normal affect, normal mood - Skin Skin exam: Present: warm, dry, intact, normal color. Absent: rash ED Course Vital Signs 12/15/19 12/15/19 22:35 22:50 Temperature 98.8 F Pulse Rate 85 Pulse Rate [ 80 Bilateral] Respiratory 18 Rate Respiratory 20 Rate [Bilateral ] Blood Pressure 112/80 [Right] O2 Sat by Pulse 97 Oximetry ED Medical Decision Making - Medical Decision Making Mrs. Young presents with mild asthma exacerbation. Treated with continuous nebulizer therapy in the emergency department. Prescribed prednisone taper. Also prescribed albuterol nebulizer solution. Critical care attestation.: If time is entered above; I have spent that time in minutes in the direct care of this critically ill patient, excluding procedure time. ED Disposition Clinical Impression: Asthma with acute exacerbation Disposition: DC-01 TO HOME OR SELFCARE Is pt being admited?: No Does the pt Need Aspirin: No Condition: Stable Instructions: Asthma (ED) Prescriptions: Prednisone [predniSONE 10 mg (6-Day Pack, 21 Tabs)] 10 mg PO .TAPER #1 tab.ds.pk ALBUTEROL NEB's [Proventil 0.083% NEBS] 2.5 mg IH TID PRN #1 box PRN Reason: Wheezing Referrals: MARISOL BEARD MD [Staff Physician] - 3-5 Days
[2019-12-16 01:51] VITALS: BP 114/72
== END 2019-12-16 01:52 | disposition home or self-care (01) ==
LOC: ED 22:17
DX: J45.901 Unspecified asthma with (acute) exacerbation (principal); K21.9 Gastro-esophageal reflux disease without esophagitis; Z98.51 Tubal ligation status; Z98.890 Other specified postprocedural states; Z79.899 Other long term (current) drug therapy; Z88.0 Allergy status to penicillin; Z88.6 Allergy status to analgesic agent; Z88.1 Allergy status to other antibiotic agents; Z88.8 Allergy status to other drugs, medicaments and biological substances
CPT/HCPCS: 94644; 99283; J7512

== ENCOUNTER 2019-12-25 08:44 | Emergency (ER) | payer MEDICARE ==
[2019-12-25] MEDS ORDERED: IPRATROPIUM/ALBUTEROL SULFATE 3 ML AMPUL.NEB IH ONE ×2 (08:50→09:08)
[2019-12-25] MEDS ORDERED: MAGNESIUM SULFATE 2 GM/50 ML BAG IV ONE (09:09)
[2019-12-25] MEDS ORDERED: methylPREDNISolone Sod Succinate 125 MG/2 ML INJ IV ONE (09:09)
[2019-12-25] MEDS ORDERED: SODIUM CHLORIDE 0.9% 1000 ML 1,000 ML ONE (09:13)
--- NOTE | 2019-12-25 09:16 | Emergency Department Report ---
ED Asthma HPI - General Chief Complaint: Adult Asthma Stated Complaint: ASTHMA Time Seen by Provider: 12/25/19 09:11 Source: patient Mode of arrival: Ambulatory Limitations: No Limitations - History of Present Illness Initial Comments: 49-year-old -Al[place]ian female who is known to this provider comes in with her typical asthma exacerbation. Patient states this been going on for 3 days. Patient denies any fever chills no nausea no vomiting no chest pain. Patient states that she has been taken her medications for her asthma at home. MD Complaint: "asthma attack" Onset/Timin -: days(s) Asthma History: history of frequent attac, history of prior ED visit Severity: moderate Context: allergen exposure Associated Symptoms: productive cough - Related Data Home Medications Medication Instructions Recorded Confirmed Last Taken Fluticasone/Salmeterol [Advair 1 puff PO Q4H 05/20/19 05/20/19 05/20/19 Diskus 500-50 mcg] Previous Rx's Medication Instructions Recorded Last Taken Type Levothyroxine [Synthroid] 88 mcg PO DAILY@0600 #30 tablet 01/16/19 05/20/19 Rx traMADoL [Ultram 50 MG tab] 50 mg PO Q6HR PRN #12 tablet 05/20/19 Unknown Rx Albuterol Sulfate [Proventil Hfa] 2 puff IH Q4HR PRN #1 hfa.aer.ad 05/28/19 Unknown Rx predniSONE [Deltasone] 50 mg PO QDAY #5 tab 05/28/19 Unknown Rx Benzonatate [Tessalon Perles] 100 mg PO Q8HR #30 08/18/19 Unknown Rx Omeprazole 40 mg PO DAILY #30 capsule.dr 08/18/19 Unknown Rx levoFLOXacin [Levofloxacin] 500 mg PO QDAY #10 tablet 08/18/19 Unknown Rx Cetirizine HCl [Zyrtec 10mg tab] 10 mg PO QDAY #7 tablet 08/31/19 Unknown Rx ALBUTEROL NEB's [Proventil 0.083% 2.5 mg IH TID PRN 30 Days #1 nebu 10/16/19 Unknown Rx NEBS] Benzonatate [Tessalon Perles] 100 mg PO Q8HR #30 capsule 11/15/19 Unknown Rx Prednisone [predniSONE 10 mg 10 mg PO .TAPER #21 tab.ds.pk 11/15/19 Unknown Rx (6-Day Pack, 21 Tabs)] Montelukast [Singulair] 10 mg PO QPM #14 tablet 12/01/19 Unknown Rx predniSONE [Deltasone] 50 mg PO QDAY #5 tab 12/01/19 Unknown Rx ALBUTEROL NEB's [Proventil 0.083% 2.5 mg IH TID PRN #1 box 12/15/19 Unknown Rx NEBS] Prednisone [predniSONE 10 mg 10 mg PO .TAPER #1 tab.ds.pk 12/15/19 Unknown Rx (6-Day Pack, 21 Tabs)] predniSONE [Deltasone] 50 mg PO QDAY 5 Days #5 tablet 12/25/19 Unknown Rx Allergies Allergy/AdvReac Type Severity Reaction Status Date / Time doxycycline Allergy Rash Verified 08/31/19 16:04 ketorolac tromethamine Allergy Anaphylaxis Verified 08/31/19 16:04 [From Toradol] Latex, Natural Rubber Allergy Angioedema Verified 08/31/19 16:04 morphine Allergy Shortness Verified 08/31/19 16:04 of Breath azithromycin [From Zithromax] AdvReac Anaphylaxis Verified 08/31/19 16:04 NSAIDS (Non-Steroidal AdvReac Anaphylaxis Verified 08/31/19 16:04 Anti-Inflamma Penicillins AdvReac Hives Verified 08/31/19 16:04 ED Review of Systems ROS: Stated complaint: ASTHMA Other details as noted in HPI Comment: All other systems reviewed and negative ED Past Medical Hx - Past Medical History Previous Medical History?: Yes Hx Hypertension: No Hx Heart Attack/AMI: No Hx Congestive Heart Failure: No Hx Diabetes: No Hx Deep Vein Thrombosis: No Hx Pulmonary Embolism: No Hx GERD: Yes Hx Liver Disease: No Hx Renal Disease: No Hx Sickle Cell Disease: No Hx Arthritis: No Hx Seizures: No Hx Kidney Stones: No Hx Asthma: Yes (chronic) Hx COPD: No Hx Tuberculosis: No Hx Dementia: No Hx HIV: No Additional medical history: sinus problems. Prior Intubations x3. Obesity. hypothyroid - Surgical History Past Surgical History?: Yes Hx Coronary Stent: No Hx Open Heart Surgery: No Hx Pacemaker: No Hx Internal Defibrillator: No Hx Cholecystectomy: No Hx Appendectomy: No Hx Breast Surgery: No Additional Surgical History: x4, umbilical hernia repair, sinus surgeries, D&C. thyroid removal. tubligation - Social History Smoking Status: Never Smoker - Medications Home Medications: Home Medications Medication Instructions Recorded Confirmed Last Taken Type Levothyroxine [Synthroid] 88 mcg PO DAILY@0600 #30 tablet 01/16/19 05/20/19 05/20/19 Rx Fluticasone/Salmeterol [Advair 1 puff PO Q4H 05/20/19 05/20/19 05/20/19 History Diskus 500-50 mcg] traMADoL [Ultram 50 MG tab] 50 mg PO Q6HR PRN #12 tablet 05/20/19 Unknown Rx Albuterol Sulfate [Proventil Hfa] 2 puff IH Q4HR PRN #1 hfa.aer.ad 05/28/19 Unknown Rx predniSONE [Deltasone] 50 mg PO QDAY #5 tab 05/28/19 Unknown Rx Benzonatate [Tessalon Perles] 100 mg PO Q8HR #30 08/18/19 Unknown Rx Omeprazole 40 mg PO DAILY #30 capsule. 08/18/19 Unknown Rx levoFLOXacin [Levofloxacin] 500 mg PO QDAY #10 tablet 08/18/19 Unknown Rx Cetirizine HCl [Zyrtec 10mg tab] 10 mg PO QDAY #7 tablet 08/31/19 Unknown Rx ALBUTEROL NEB's [Proventil 0.083% 2.5 mg IH TID PRN 30 Days #1 nebu 10/16/19 Unknown Rx NEBS] Benzonatate [Tessalon Perles] 100 mg PO Q8HR #30 capsule 11/15/19 Unknown Rx Prednisone [predniSONE 10 mg 10 mg PO .TAPER #21 tab.ds.pk 11/15/19 Unknown Rx (6-Day Pack, 21 Tabs)] Montelukast [Singulair] 10 mg PO QPM #14 tablet 12/01/19 Unknown Rx predniSONE [Deltasone] 50 mg PO QDAY #5 tab 12/01/19 Unknown Rx ALBUTEROL NEB's [Proventil 0.083% 2.5 mg IH TID PRN #1 box 12/15/19 Unknown Rx NEBS] Prednisone [predniSONE 10 mg 10 mg PO .TAPER #1 tab.ds.pk 12/15/19 Unknown Rx (6-Day Pack, 21 Tabs)] predniSONE [Deltasone] 50 mg PO QDAY 5 Days #5 tablet 12/25/19 Unknown Rx ED Physical Exam - General Limitations: No Limitations General appearance: alert, in no apparent distress - Head Head exam: Present: atraumatic, normocephalic - Eye Eye exam: Present: normal appearance - ENT ENT exam: Present: mucous membranes moist - Neck Neck exam: Present: normal inspection - Respiratory Respiratory exam: Present: wheezes, prolonged expiratory - Cardiovascular Cardiovascular Exam: Present: tachycardia - GI/Abdominal GI/Abdominal exam: Present: soft, normal bowel sounds - Extremities Exam Extremities exam: Present: normal inspection, full ROM - Back Exam Back exam: Present: normal inspection - Neurological Exam Neurological exam: Present: alert, oriented X3 - Psychiatric Psychiatric exam: Present: normal affect, normal mood - Skin Skin exam: Present: warm, dry, intact, normal color. Absent: rash ED Course Vital Signs 12/25/19 08:49 Temperature 99.1 F Pulse Rate 100 H Respiratory 24 Rate Blood Pressure 132/78 O2 Sat by Pulse 97 Oximetry - Reevaluation(s) Reevaluation #1: 12/25/19 12:17 Patient reports she feels much better after having the GI cocktail and multiple treatments. Patient feels she is safe to go home. Patient reevaluated by this provider lungs are clear. ED Medical Decision Making - Radiology Data Radiology results: report reviewed Referring Physician:CONSUELO HERRERAPatient Name:DAHIANA GERMANPatient ID:[id number] of :[id number]:FemaleAccession:[id number] Date:[id number] Status:Finalized Findings [address] [address] XRay Report Signed Patient: DAHIANA GERMAN MR#: [id number] : 1970 Acct:[id number] Age/Sex: 49 / F ADM Date: 12/25/19 Loc: ED Attending Dr: Ordering Physician: LIDIA MOSCOSO Date of Service: 12/25/19 Procedure(s): XR chest 1V ap Accession Number(s): [id number] cc: LIDIA MOSCOSO Fluoro Time In Minutes: CHEST 1 VIEW 12/25/2019 9:51 AM INDICATION / CLINICAL INFORMATION: Wheezing and chest heaviness. COMPARISON: Chest x-ray on 11/15/2019 FINDINGS: SUPPORT DEVICES: None. HEART / MEDIASTINUM: No significant abnormality. LUNGS / PLEURA: No significant pulmonary or pleural abnormality. No pneumothorax. ADDITIONAL FINDINGS: No significant additional findings. IMPRESSION: 1. No acute findings. Signer Name: Rivas Gilmore MD Signed: 12/25/2019 10:56 AM Workstation Name: [id number] Transcribed By: ASIA Dictated By: Rivas Gilmore MD Electronically Authenticated By: Rivas Gilmore MD Signed Date/Time: 12/25/19 1056 - Medical Decision Making 49-year-old -Algerian female who is known to this provider comes in with her typical asthma exacerbation. Patient states this been going on for 3 days. Patient denies any fever chills no nausea no vomiting no chest pain. Patient states that she has been taken her medications for her asthma at home. Patient is receiving rescue medication of DuoNeb, Solu-Medrol magnesium and normal saline. Patient needed to have another 5 mg of albuterol inhalation. Patient states that she still feels heaviness we will order a chest x-ray and reevaluate. Patient was given a GI cocktail which she reports feels much better patient is stable to be discharged home she will be discharged home on prednisone and to continue with her chronic asthmatic medications. Critical care attestation.: If time is entered above; I have spent that time in minutes in the direct care of this critically ill patient, excluding procedure time. ED Disposition Clinical Impression: Asthma with acute exacerbation Disposition: DC-01 TO HOME OR SELFCARE Is pt being admited?: No Does the pt Need Aspirin: No Condition: Stable Instructions: Asthma (ED) Additional Instructions: Please complete your prednisone as prescribed. Continue with your chronic asthmatic medications. Follow-up with your primary care provider. Prescriptions: predniSONE [Deltasone] 50 mg PO QDAY 5 Days #5 tablet Referrals: FELIZ [Other] - 3-5 Days
[2019-12-25] MEDS ORDERED: ALBUTEROL 2.5 MG/3 ML NEBU IH ONE (09:35)
--- NOTE | 2019-12-25 11:00 | XRay Report ---
CHEST 1 VIEW 12/25/2019 9:51 AM INDICATION / CLINICAL INFORMATION: Wheezing and chest heaviness. COMPARISON: Chest x-ray on 11/15/2019 FINDINGS: SUPPORT DEVICES: None. HEART / MEDIASTINUM: No significant abnormality. LUNGS / PLEURA: No significant pulmonary or pleural abnormality. No pneumothorax. ADDITIONAL FINDINGS: No significant additional findings. IMPRESSION: 1. No acute findings. Signer Name: Rivas Gilmore MD Signed: 12/25/2019 10:56 AM Workstation Name: [facility]
[2019-12-25] MEDS ORDERED: LIDOCAINE VISCOUS 2% 15 ML ORAL LIQD PO ONE (11:05)
[2019-12-25] MEDS ORDERED: ALUM-MAG HYDROXIDE-SIMETHICONE 200-200-20MG/5ML ORAL LIQD 30 ML PO ONE (11:05)
[2019-12-25] MEDS ORDERED: diphenhydrAMINE 25 MG/10 ML ORAL LIQUID PO ONE (11:05)
[2019-12-25] MEDS ORDERED: SODIUM CHLORIDE 0.9% 1000 ML 1,000 ML IV ONE (11:26)
[2019-12-25 13:00] VITALS: BP 129/72
== END 2019-12-25 12:40 | disposition home or self-care (01) ==
LOC: ED 08:44
DX: J45.901 Unspecified asthma with (acute) exacerbation (principal); K21.9 Gastro-esophageal reflux disease without esophagitis
CPT/HCPCS: 71045; 94640; 96365; 96372; 99283; J2930; J3475; J7030; 94644; Q0163

== ENCOUNTER 2020-02-03 06:34 | Emergency (ER) | payer MEDICARE ==
[2020-02-03] MEDS ORDERED: IPRATROPIUM/ALBUTEROL SULFATE 3 ML AMPUL.NEB IH ONE (07:24)
[2020-02-03] MEDS ORDERED: predniSONE 20 MG TAB PO ONE (07:25)
[2020-02-03 07:27] VITALS: BP 128/69
--- NOTE | 2020-02-03 07:32 | Emergency Department Report ---
ED General Adult HPI - General Chief complaint: Dyspnea/Respdistress Stated complaint: SILVIANO Time Seen by Provider: 02/03/20 07:03 Source: patient Mode of arrival: Wheelchair Limitations: No Limitations - History of Present Illness Initial comments: This is a 49-year-old female with chronic intermittent moderately severe asthma. She was admitted second week of January for about 3 days. She also is type II diabetic. She has recently finished a course of prednisone. She states that she is trying to move out of a moldy apartment and that this is her trigger. She also presents with her son with asthma and similar complaints. She states she uses a home nebulizer but it has not produced adequate resolution of her wheezing. She has had no recent fever or chills, no productive cough or significant sinus drainage. -: Gradual, week(s) Severity scale (0 -10): 0 Associated Symptoms: denies other symptoms - Related Data Home Medications Medication Instructions Recorded Confirmed Last Taken AtorvaSTATin [Lipitor] 40 mg PO QHS 01/12/20 01/12/20 Unknown Cetirizine HCl [Cetirizine 5mg tab] 10 mg PO QDAY 01/12/20 01/12/20 Unknown Levothyroxine [Synthroid] 88 mcg PO QAM 01/12/20 01/12/20 Unknown Omeprazole 40 mg PO QDAY 01/12/20 01/12/20 Unknown Previous Rx's Medication Instructions Recorded Last Taken Type Albuterol Sulfate [Proventil Hfa] 2 puff IH Q4HR PRN #1 hfa.aer.ad 05/28/19 01/12/20 Rx ALBUTEROL NEB's [Proventil 0.083% 2.5 mg IH TID PRN 30 Days #1 nebu 10/16/19 01/12/20 Rx NEBS] Montelukast [Singulair] 10 mg PO QPM #14 tablet 12/01/19 Unknown Rx Acetaminophen [Acetaminophen TAB] 325 mg PO Q4H PRN #15 tablet 01/14/20 Unknown Rx Benzonatate [Tessalon Perles] 100 mg PO Q8HR PRN #12 capsule 01/14/20 Unknown Rx Pantoprazole [Protonix TAB] 40 mg PO DAILY #14 tablet 01/14/20 Unknown Rx methylPREDNISolone [Medrol 4MG 1 dose PO QDAY #1 pack 01/14/20 Unknown Rx DOSEPAK (21 tabs)] metFORMIN [Glucophage] 500 mg PO BID #60 tablet 02/03/20 Unknown Rx predniSONE [Deltasone] 40 mg PO QDAY #10 tab 02/03/20 Unknown Rx Allergies Allergy/AdvReac Type Severity Reaction Status Date / Time aspirin Allergy Anaphylaxis Verified 01/13/20 11:14 azithromycin [From Zithromax] Allergy Anaphylaxis Verified 01/12/20 11:49 doxycycline Allergy Rash Verified 08/31/19 16:04 ketorolac tromethamine Allergy Anaphylaxis Verified 08/31/19 16:04 [From Toradol] Latex, Natural Rubber Allergy Angioedema Verified 08/31/19 16:04 morphine Allergy Shortness Verified 08/31/19 16:04 of Breath NSAIDS (Non-Steroidal Allergy Anaphylaxis Verified 01/12/20 11:49 Anti-Inflamma Penicillins Allergy Hives Verified 01/12/20 11:49 ED Review of Systems ROS: Stated complaint: SILVIANO Other details as noted in HPI Constitutional: denies: chills, fever Eyes: denies: eye pain, eye discharge, vision change ENT: denies: ear pain, throat pain Respiratory: wheezing. denies: cough Cardiovascular: denies: chest pain, palpitations Endocrine: no symptoms reported Gastrointestinal: denies: abdominal pain, nausea, diarrhea Genitourinary: denies: urgency, dysuria, discharge Musculoskeletal: denies: back pain, joint swelling, arthralgia Skin: denies: rash, lesions Neurological: denies: headache, weakness, paresthesias Psychiatric: denies: anxiety, depression Hematological/Lymphatic: denies: easy bleeding, easy bruising ED Past Medical Hx - Past Medical History Previous Medical History?: Yes Hx Hypertension: No Hx Heart Attack/AMI: No Hx Congestive Heart Failure: No Hx Diabetes: Yes Hx Deep Vein Thrombosis: No Hx Pulmonary Embolism: No Hx GERD: Yes Hx Liver Disease: No Hx Renal Disease: No Hx Sickle Cell Disease: No Hx Arthritis: No Hx Seizures: No Hx Kidney Stones: No Hx Asthma: Yes (chronic) Hx COPD: No Hx Tuberculosis: No Hx Dementia: No Hx HIV: No Additional medical history: sinus problems. Prior Intubations x3. Obesity. hypothyroid - Surgical History Past Surgical History?: Yes Hx Coronary Stent: No Hx Open Heart Surgery: No Hx Pacemaker: No Hx Internal Defibrillator: No Hx Cholecystectomy: No Hx Appendectomy: No Hx Breast Surgery: No Additional Surgical History: x4, umbilical hernia repair, sinus surgeries, D&C. thyroid removal. tubligation - Social History Smoking Status: Never Smoker Substance Use Type: None - Medications Home Medications: Home Medications Medication Instructions Recorded Confirmed Last Taken Type Albuterol Sulfate [Proventil Hfa] 2 puff IH Q4HR PRN #1 hfa.aer.ad 05/28/19 01/12/20 01/12/20 Rx ALBUTEROL NEB's [Proventil 0.083% 2.5 mg IH TID PRN 30 Days #1 nebu 10/16/19 01/12/20 01/12/20 Rx NEBS] Montelukast [Singulair] 10 mg PO QPM #14 tablet 12/01/19 01/12/20 Unknown Rx AtorvaSTATin [Lipitor] 40 mg PO QHS 01/12/20 01/12/20 Unknown History Cetirizine HCl [Cetirizine 5mg tab] 10 mg PO QDAY 01/12/20 01/12/20 Unknown History Levothyroxine [Synthroid] 88 mcg PO QAM 01/12/20 01/12/20 Unknown History Omeprazole 40 mg PO QDAY 01/12/20 01/12/20 Unknown History Acetaminophen [Acetaminophen TAB] 325 mg PO Q4H PRN #15 tablet 01/14/20 Unknown Rx Benzonatate [Tessalon Perles] 100 mg PO Q8HR PRN #12 capsule 01/14/20 Unknown Rx Pantoprazole [Protonix TAB] 40 mg PO DAILY #14 tablet 01/14/20 Unknown Rx methylPREDNISolone [Medrol 4MG 1 dose PO QDAY #1 pack 01/14/20 Unknown Rx DOSEPAK (21 tabs)] metFORMIN [Glucophage] 500 mg PO BID #60 tablet 02/03/20 Unknown Rx predniSONE [Deltasone] 40 mg PO QDAY #10 tab 02/03/20 Unknown Rx ED Physical Exam - General Limitations: No Limitations General appearance: alert, in no apparent distress - Head Head exam: Present: atraumatic, normocephalic - Eye Eye exam: Present: normal appearance - ENT ENT exam: Present: mucous membranes moist - Neck Neck exam: Present: normal inspection - Respiratory Respiratory exam: Present: wheezes, prolonged expiratory. Absent: respiratory distress - Cardiovascular Cardiovascular Exam: Present: regular rate, normal rhythm. Absent: systolic murmur, diastolic murmur, rubs, gallop - GI/Abdominal GI/Abdominal exam: Present: soft, normal bowel sounds. Absent: distended, tenderness, guarding, rebound, rigid - Extremities Exam Extremities exam: Present: normal inspection - Back Exam Back exam: Present: normal inspection - Neurological Exam Neurological exam: Present: alert, oriented X3, CN II-XII intact. Absent: motor sensory deficit - Psychiatric Psychiatric exam: Present: normal affect, normal mood - Skin Skin exam: Present: warm, dry, intact, normal color. Absent: rash ED Course Vital Signs 02/03/20 02/03/20 06:44 07:25 Temperature 98.2 F Pulse Rate 105 H 94 H Respiratory 20 19 Rate Blood Pressure 118/72 Blood Pressure 128/69 [Left] O2 Sat by Pulse 94 94 Oximetry - Reevaluation(s) Reevaluation #1: Wheezing improved mildly present. Also complains of indigestion and states "I need a cocktail". I have gone over the diagnosis of type 2 diabetes. The patient was quite resistant to that. I explained to her that she should be taking metformin particularly while she is on prednisone. She is encouraged to follow-up with her primary care physician. 02/03/20 08:42 ED Medical Decision Making - Lab Data Result diagrams: 02/03/20 07:45 02/03/20 07:45 Critical care attestation.: If time is entered above; I have spent that time in minutes in the direct care of this critically ill patient, excluding procedure time. ED Disposition Clinical Impression: Exacerbation of asthma Qualifiers: Asthma severity: moderate Asthma persistence: persistent Qualified Code(s): J45.41 - Moderate persistent asthma with (acute) exacerbation Type 2 diabetes mellitus Qualifiers: Diabetes mellitus usp insulin use: without exterminator helper use Diabetes mellitus complication status: without complication Qualified Code(s): E11.9 - Type 2 diabetes mellitus without complications Disposition: -01 TO HOME OR SELFCARE Is pt being admited?: No Does the pt Need Aspirin: No Condition: Stable Instructions: Asthma (ED), Diabetes Mellitus Type 2 in Adults (ED) Additional Instructions: You will need to check your sugar while you are on prednisone. Follow-up with primary care. Rx as directed. Prescriptions: predniSONE [Deltasone] 40 mg PO QDAY #10 tab metFORMIN [Glucophage] 500 mg PO BID #60 tablet Referrals: FELIZ [Other] - 3-5 Days Time of Disposition: 08:32
[2020-02-03 07:55] LABS: Basophils % (Auto) 0.4 % (0.0-1.8); Eosinophils # (Auto) 0.5 K/mm3 (0.0-0.4); Eosinophils % (Auto) 5.9 % (0.0-4.3); Hematocrit 38.9 % (30.3-42.9); Hemoglobin 12.7 gm/dl (10.1-14.3); Lymphocytes # (Auto) 1.4 K/mm3 (1.2-5.4); Lymphocytes % (Auto) 16.5 % (13.4-35.0); Mean Corpuscular HGB Conc 33 % (30-34); Mean Corpuscular Volume 86 fl (79-97); Monocytes # (Auto) 0.9 K/mm3 (0.0-0.8); Monocytes % (Auto) 10.3 % (0.0-7.3); Platelet Count 201 K/mm3 (140-440); Red Blood Count 4.55 M/mm3 (3.65-5.03); Red Cell Distribution Width 14.5 % (13.2-15.2)
[2020-02-03 08:16] LABS: BUN/Creatinine Ratio 12; Blood Urea Nitrogen 11 mg/dL (7-17); Calcium 9.9 mg/dL (8.4-10.2); Hemolysis Index 29
[2020-02-03] MEDS ORDERED: ALBUTEROL 2.5 MG/3 ML NEBU IH ONE (08:43)
[2020-02-03] MEDS ORDERED: ALUM-MAG HYDROXIDE-SIMETHICONE 200-200-20MG/5ML ORAL LIQD 30 ML PO ONE (08:46)
[2020-02-03] MEDS ORDERED: PANTOPRAZOLE 40 MG TAB PO ONE (08:46)
== END 2020-02-03 09:30 | disposition home or self-care (01) ==
LOC: ED 06:34
DX: J45.21 Mild intermittent asthma with (acute) exacerbation (principal); E11.9 Type 2 diabetes mellitus without complications; K21.9 Gastro-esophageal reflux disease without esophagitis; E03.9 Hypothyroidism, unspecified; Z98.51 Tubal ligation status; Z98.890 Other specified postprocedural states; Z79.899 Other long term (current) drug therapy; Z88.1 Allergy status to other antibiotic agents; Z88.6 Allergy status to analgesic agent
CPT/HCPCS: 36415; 80048; 85025; 94640; 99283; J7512; 94644

== ENCOUNTER 2020-03-04 19:03 | Emergency (ER) | payer MEDICARE ==
[2020-03-04 19:28] VITALS: BP 117/69
--- NOTE | 2020-03-04 20:06 | Emergency Department Report ---
ED GI Bleed HPI - General Chief complaint: GI Bleed Stated complaint: ABDOMINAL PAIN, RECTAL BLEEDING Time Seen by Provider: 03/04/20 20:01 Source: patient Mode of arrival: Ambulatory Limitations: No Limitations - History of Present Illness Initial comments: Mrs. Young is a 49-year-old female with history of asthma, hemorrhoids, GERD, hernia, obesity, hypothyroidism, sinus disease who presents with constipation and rectal bleeding for 3 days. She has mild intermittent crampy pain. She has intact appetite. She recently took magnesium citrate for constipation last week. She was recently discharged from ICU for status asthmaticus. MD complaint: blood on toilet paper -: Gradual, days(s) (3) Severity scale (0 -10): 4 Quality: cramping Consistency: now resolved Improves with: none Worsens with: none Context: hemorrhoids Associated Symptoms: denies other symptoms - Related Data Home Medications Medication Instructions Recorded Confirmed Last Taken AtorvaSTATin [Lipitor] 40 mg PO QHS 01/12/20 02/24/20 Unknown Cetirizine HCl [Cetirizine 5mg tab] 10 mg PO QDAY 01/12/20 02/24/20 Unknown Levothyroxine [Synthroid] 25 mcg PO QDAY 02/24/20 02/24/20 Unknown Previous Rx's Medication Instructions Recorded Last Taken Type Albuterol Sulfate [Proventil Hfa] 2 puff IH Q4HR PRN #1 hfa.aer.ad 05/28/19 01/12/20 Rx ALBUTEROL NEB's [Proventil 0.083% 2.5 mg IH TID PRN 30 Days #1 nebu 10/16/19 01/12/20 Rx NEBS] Montelukast [Singulair] 10 mg PO QPM #14 tablet 12/01/19 Unknown Rx Acetaminophen [Acetaminophen TAB] 325 mg PO Q4H PRN #15 tablet 01/14/20 Unknown Rx Pantoprazole [Protonix TAB] 40 mg PO DAILY #14 tablet 01/14/20 Unknown Rx Prednisone [predniSONE 5 mg (6-Day 5 mg PO .TAPER #1 tab.ds.pk 02/26/20 Unknown Rx Pack, 21 Tabs)] Pramoxine HCl/Zinc Oxide 56 gm TP TID 7 Days #1 oint...g. 03/04/20 Unknown Rx [Hemorrhoid 1%-12.5% Ointment] Allergies Allergy/AdvReac Type Severity Reaction Status Date / Time aspirin Allergy Anaphylaxis Verified 01/13/20 11:14 azithromycin [From Zithromax] Allergy Anaphylaxis Verified 01/12/20 11:49 doxycycline Allergy Rash Verified 08/31/19 16:04 ketorolac tromethamine Allergy Anaphylaxis Verified 08/31/19 16:04 [From Toradol] Latex, Natural Rubber Allergy Angioedema Verified 08/31/19 16:04 morphine Allergy Shortness Verified 08/31/19 16:04 of Breath NSAIDS (Non-Steroidal Allergy Anaphylaxis Verified 01/12/20 11:49 Anti-Inflamma Penicillins Allergy Hives Verified 01/12/20 11:49 ED Review of Systems ROS: Stated complaint: ABDOMINAL PAIN, RECTAL BLEEDING Other details as noted in HPI Comment: All other systems reviewed and negative Constitutional: denies: fever, malaise Respiratory: denies: cough Cardiovascular: denies: chest pain Gastrointestinal: abdominal pain ED Past Medical Hx - Past Medical History Previous Medical History?: Yes Hx Hypertension: No Hx Heart Attack/AMI: No Hx Congestive Heart Failure: No Hx Diabetes: No Hx Deep Vein Thrombosis: No Hx Pulmonary Embolism: No Hx GERD: Yes Hx Liver Disease: No Hx Renal Disease: No Hx Sickle Cell Disease: No Hx Arthritis: No Hx Seizures: No Hx Kidney Stones: No Hx Asthma: Yes Hx COPD: No Hx Tuberculosis: No Hx Dementia: No Hx HIV: No Additional medical history: sinus problems. Prior Intubations x3. Obesity. hypothyroid - Surgical History Past Surgical History?: Yes Hx Coronary Stent: No Hx Open Heart Surgery: No Hx Pacemaker: No Hx Internal Defibrillator: No Hx Cholecystectomy: No Hx Appendectomy: No Hx Breast Surgery: No Additional Surgical History: x4, umbilical hernia repair, sinus surgeries, D&C. thyroid removal. tubligation - Social History Smoking Status: Never Smoker Substance Use Type: None - Medications Home Medications: Home Medications Medication Instructions Recorded Confirmed Last Taken Type Albuterol Sulfate [Proventil Hfa] 2 puff IH Q4HR PRN #1 hfa.aer.ad 05/28/19 02/24/20 01/12/20 Rx ALBUTEROL NEB's [Proventil 0.083% 2.5 mg IH TID PRN 30 Days #1 nebu 10/16/19 02/24/2020 Rx NEBS] Montelukast [Singulair] 10 mg PO QPM #14 tablet 12/01/19 02/24/20 Unknown Rx AtorvaSTATin [Lipitor] 40 mg PO QHS 01/12/20 02/24/20 Unknown History Cetirizine HCl [Cetirizine 5mg tab] 10 mg PO QDAY 01/12/20 02/24/20 Unknown History Acetaminophen [Acetaminophen TAB] 325 mg PO Q4H PRN #15 tablet 01/14/20 02/24/20 Unknown Rx Pantoprazole [Protonix TAB] 40 mg PO DAILY #14 tablet 01/14/20 02/24/20 Unknown Rx Levothyroxine [Synthroid] 25 mcg PO QDAY 02/24/20 02/24/20 Unknown History Prednisone [predniSONE 5 mg (6-Day 5 mg PO .TAPER #1 tab.ds.pk 02/26/20 Unknown Rx Pack, 21 Tabs)] Pramoxine HCl/Zinc Oxide 56 gm TP TID 7 Days #1 oint...g. 03/04/20 Unknown Rx [Hemorrhoid 1%-12.5% Ointment] ED Physical Exam - General Limitations: No Limitations General appearance: alert, in no apparent distress - Head Head exam: Present: atraumatic, normocephalic - Eye Eye exam: Present: normal appearance - ENT ENT exam: Present: mucous membranes moist - Neck Neck exam: Present: normal inspection, full ROM - Respiratory Respiratory exam: Present: normal lung sounds bilaterally. Absent: respiratory distress, wheezes, rales, rhonchi - Cardiovascular Cardiovascular Exam: Present: regular rate, normal rhythm, normal heart sounds. Absent: systolic murmur, diastolic murmur, rubs, gallop - GI/Abdominal GI/Abdominal exam: Present: soft, normal bowel sounds. Absent: distended, tenderness, guarding, rebound - Extremities Exam Extremities exam: Present: normal inspection - Neurological Exam Neurological exam: Present: alert, oriented X3 - Psychiatric Psychiatric exam: Present: normal affect, normal mood - Skin Skin exam: Present: warm, dry, intact, normal color. Absent: rash ED Course Vital Signs 03/04/20 19:27 Temperature 98.6 F Pulse Rate 77 Respiratory 18 Rate Blood Pressure 117/69 O2 Sat by Pulse 97 Oximetry ED Medical Decision Making - Lab Data Result diagrams: 03/04/20 19:38 03/04/20 19:38 - Medical Decision Making Rectal bleeding likely due to hemorrhoids: Recommended stool softener and hemorrhoid ointment. Constipation, recommended diet instructions Upon lab review CBC chemistry within normal limits. Critical care attestation.: If time is entered above; I have spent that time in minutes in the direct care of this critically ill patient, excluding procedure time. ED Disposition Clinical Impression: Rectal bleeding Disposition: DC- TO HOME OR SELFCARE Is pt being admited?: No Does the pt Need Aspirin: No Condition: Stable Instructions: Rectal Bleeding (ED) Prescriptions: Pramoxine HCl/Zinc Oxide [Hemorrhoid 1%-12.5% Ointment] 56 gm TP TID 7 Days #1 oint...g. Referrals: MARISOL BEARD MD [Staff Physician] - 3-5 Days Forms: Accompanied Note
[2020-03-04 20:07] LABS: Basophils % (Auto) 0.4 % (0.0-1.8); Eosinophils # (Auto) 0.5 K/mm3 (0.0-0.4); Eosinophils % (Auto) 5.1 % (0.0-4.3); Hematocrit 40.4 % (30.3-42.9); Hemoglobin 13.3 gm/dl (10.1-14.3); Lymphocytes # (Auto) 2.1 K/mm3 (1.2-5.4); Lymphocytes % (Auto) 21.8 % (13.4-35.0); Mean Corpuscular HGB Conc 33 % (30-34); Mean Corpuscular Volume 85 fl (79-97); Monocytes # (Auto) 1.1 K/mm3 (0.0-0.8); Platelet Count 228 K/mm3 (140-440); Red Blood Count 4.74 M/mm3 (3.65-5.03); Red Cell Distribution Width 14.9 % (13.2-15.2)
[2020-03-04 20:22] LABS: BUN/Creatinine Ratio 8; Blood Urea Nitrogen 8 mg/dL (7-17); Calcium 9.4 mg/dL (8.4-10.2); Hemolysis Index 15
[2020-03-04 21:05] LABS: Bilirubin,Urine NEG (Negative); Blood,Urine NEG (Negative); Color,Urine Yellow (Yellow); Mucus,Urine FEW /HPF; Protein,Urine <15 mg/dL mg/dL (Negative); Urobilinogen,Urine < 2.0 mg/dL (<2.0); WBC,Urine < 1.0 /HPF (0.0-6.0)
== END 2020-03-04 21:12 | disposition home or self-care (01) ==
LOC: ED 19:03
DX: K62.5 Hemorrhage of anus and rectum (principal); K21.9 Gastro-esophageal reflux disease without esophagitis; J45.909 Unspecified asthma, uncomplicated; Z98.890 Other specified postprocedural states; Z98.51 Tubal ligation status; Z79.899 Other long term (current) drug therapy; Z88.2 Allergy status to sulfonamides; Z88.8 Allergy status to other drugs, medicaments and biological substances
CPT/HCPCS: 36415; 80048; 81001; 85025

== ENCOUNTER 2020-03-13 11:02 | Emergency (ER) | payer MEDICARE ==
[2020-03-13] MEDS ORDERED: ALBUTEROL 2.5 MG/3 ML NEBU IH ONE ×3 (11:18→13:44)
[2020-03-13] MEDS ORDERED: IPRATROPIUM 0.02% NEBU 2.5 ML IH ONE ×3 (11:18→13:44)
[2020-03-13] MEDS ORDERED: methylPREDNISolone Sod Succinate 125 MG/2 ML INJ IV ONE (11:22)
[2020-03-13] MEDS ORDERED: MAGNESIUM SULFATE 2 GM/50 ML BAG IV ONE (11:22)
[2020-03-13] MEDS ORDERED: methylPREDNISolone Sod Succinate 125 MG/2 ML INJ ONE (11:24)
--- NOTE | 2020-03-13 11:32 | Emergency Department Report ---
HPI - General Chief Complaint: Adult Asthma Time Seen by Provider: 03/13/20 11:18 - HPI HPI: Room 2 The patient is a 49-year-old female present with a chief complaint of asthma exacerbation. Patient complains of shortness of breath which began last night at 20: 30. Patient states it worsened this morning at 10: 00. Patient states she took her nebulizer but it did not help. Patient denies history of fever, cough or known sick contacts ED Past Medical Hx - Past Medical History Previous Medical History?: Yes Hx GERD: Yes Hx Asthma: Yes Additional medical history: sinus problems. Prior Intubations x3. Obesity. hypothyroid - Surgical History Past Surgical History?: Yes Additional Surgical History: x4, umbilical hernia repair, sinus surgeries, D&C. thyroid removal. tubligation - Family History Family history: no significant - Social History Smoking Status: Never Smoker Substance Use Type: None - Medications Home Medications: Home Medications Medication Instructions Recorded Confirmed Last Taken Type Albuterol Sulfate [Proventil Hfa] 2 puff IH Q4HR PRN #1 hfa.aer.ad 05/28/19 02/24/20 01/12/20 Rx ALBUTEROL NEB's [Proventil 0.083% 2.5 mg IH TID PRN 30 Days #1 nebu 10/16/19 02/24/20 01/12/20 Rx NEBS] Montelukast [Singulair] 10 mg PO QPM #14 tablet 12/01/19 02/24/20 Unknown Rx AtorvaSTATin [Lipitor] 40 mg PO QHS 01/12/20 02/24/20 Unknown History Cetirizine HCl [Cetirizine 5mg tab] 10 mg PO QDAY 01/12/20 02/24/20 Unknown History Acetaminophen [Acetaminophen TAB] 325 mg PO Q4H PRN #15 tablet 01/14/20 02/24/20 Unknown Rx Pantoprazole [Protonix TAB] 40 mg PO DAILY #14 tablet 01/14/20 02/24/20 Unknown Rx Levothyroxine [Synthroid] 25 mcg PO QDAY 02/24/20 02/24/20 Unknown History Prednisone [predniSONE 5 mg (6-Day 5 mg PO .TAPER #1 tab.ds.pk 02/26/20 Unknown Rx Pack, 21 Tabs)] Pramoxine HCl/Zinc Oxide 56 gm TP TID 7 Days #1 oint...g. 03/04/20 Unknown Rx [Hemorrhoid 1%-12.5% Ointment] Albuterol INH(or & Nicu Only) 2 puff IH QID PRN #8.5 gram 03/13/20 Unknown Rx [ProAir HFA Inhaler] Albuterol Sulfate [Albuterol 0.63% 0.63 mg IH TID PRN #90 ml 03/13/20 Unknown Rx NEBS] Prednisone [predniSONE 10 mg 10 mg PO .TAPER #1 tab.ds.pk 03/13/20 Unknown Rx (6-Day Pack, 21 Tabs)] ED Review of Systems ROS: Stated complaint: ASTHMA Other details as noted in HPI Constitutional: denies: fever Eyes: denies: eye pain ENT: denies: throat pain Respiratory: shortness of breath, wheezing. denies: cough Cardiovascular: denies: chest pain Endocrine: no symptoms reported Physical Exam - Physical Exam Vital Signs: Vital Signs 03/13/20 11:07 Temperature 98.6 F Pulse Rate 97 H Respiratory 18 Rate Blood Pressure 139/77 [Right] O2 Sat by Pulse 97 Oximetry Physical Exam: GENERAL: The patient is well-developed well-nourished female lying on stretcher receiving nebulizer exhibiting slightly increased work of breathing but calm. HEENT: Normocephalic. Atraumatic. Extraocular motions are intact. Patient has moist mucous membranes. NECK: Supple. Trachea midline CHEST/LUNGS: Diffuse wheezing. There is no respiratory distress noted. HEART/CARDIOVASCULAR: Regular. There is no tachycardia. There is no gallop rub or murmur. ABDOMEN: Abdomen is soft, nontender. Patient has normal bowel sounds. There is no abdominal distention. SKIN: There is no rash. There is no edema. There is no diaphoresis. NEURO: The patient is awake, alert, and oriented. The patient is cooperative. The patient has normal speech MUSCULOSKELETAL: There is no evidence of acute injury. ED Course Vital Signs 03/13/20 11:07 Temperature 98.6 F Pulse Rate 97 H Respiratory 18 Rate Blood Pressure 139/77 [Right] O2 Sat by Pulse 97 Oximetry - Reevaluation(s) Reevaluation #1: 03/13/20 13:45 Patient states she feels improved but believes she needs another neb. Patient has faint wheezing bilaterally. Neb ordered Reevaluation #2: 03/13/20 15:53 Patient improved. Clear to auscultation bilaterally ED Medical Decision Making - Lab Data Result diagrams: 03/13/20 14:58 03/13/20 14:58 Laboratory Tests 03/13/20 03/13/20 03/13/20 14:58 14:58 15:03 WBC 10.8 RBC 4.98 Hgb 13.2 Hct 42.8 MCV 86 MCH 26 L MCHC 31 RDW 15.2 Plt Count 267 Seg Neutrophils % Heart Doctor Sodium 139 Potassium 3.4 L Chloride 101.2 Carbon Dioxide 20 L Anion Gap 21 BUN 12 Creatinine 1.1 Estimated GFR > 60 BUN/Creatinine Ratio 11 Glucose 331 H Calcium 8.8 NT-Pro-B Natriuret Pep 14.92 - Radiology Data Radiology results: report reviewed (Chest x-ray), image reviewed (Chest x-ray) interpreted by me: Chest x-ray-no focal infiltrates, no pneumothorax [facility] [address] [place] [address] XRay Report Signed Patient: DAHIANA GERMAN MR#: [id number] : 1970 Acct:[id number] Age/Sex: 49 / F ADM Date: 03/13/20 Loc: ED Attending Dr: Ordering Physician: DREA MCCOY MD Date of Service: 03/13/20 Procedure(s): XR chest 1V ap Accession Number(s): [id number] cc: DREA MCCOY MD Fluoro Time In Minutes: CHEST 1 VIEW INDICATION: Shortness of breath COMPARISON: 02/23/2020 20 cm FINDINGS: SUPPORT DEVICES: None. HEART / MEDIASTINUM: No significant abnormality. LUNGS / PLEURA: No significant pulmonary or pleural abnormality. No pneumothorax. ADDITIONAL FINDINGS: IMPRESSION: 1. No acute cardiopulmonary disease Signer Name: Jan Andersen MD Signed: 03/13/2020 3:25 PM Workstation Name: [id number] Transcribed By: ASYA Dictated By: Jan Andersen MD Electronically Authenticated By: Jan Andersen MD Signed Date/Time: 03/13/20 1525 DD/ 1524 TD/TT: - Differential Diagnosis Asthma exacerbation Critical care attestation.: If time is entered above; I have spent that time in minutes in the direct care of this critically ill patient, excluding procedure time. ED Disposition Clinical Impression: Acute asthma exacerbation, Shortness of breath Disposition: TO HOME OR SELFCARE Is pt being admited?: No Does the pt Need Aspirin: No Condition: Stable Instructions: Asthma (ED) Prescriptions: Albuterol Sulfate [Albuterol 0.63% NEBS] 0.63 mg IH TID PRN #90 ml PRN Reason: Wheezing Prednisone [predniSONE 10 mg (6-Day Pack, 21 Tabs)] 10 mg PO .TAPER #1 tab.ds.pk Albuterol INH(or & Nicu Only) [ProAir HFA Inhaler] 2 puff IH QID PRN #8.5 gram PRN Reason: Shortness Of Breath Referrals: PRIMARY CARE, [Primary Care Provider] - 3-5 Days [facility] RUSSELL MD [Staff Physician] - 3-5 Days Time of Disposition: 15:54
[2020-03-13] MEDS ORDERED: ALUM-MAG HYDROXIDE-SIMETHICONE 200-200-20MG/5ML ORAL LIQD 30 ML PO ONE (11:59)
[2020-03-13] MEDS ORDERED: LIDOCAINE VISCOUS 2% 15 ML ORAL LIQD PO ONE (12:00)
--- NOTE | 2020-03-13 15:29 | XRay Report ---
CHEST 1 VIEW INDICATION: Shortness of breath COMPARISON: 02/23/2020 20 cm FINDINGS: SUPPORT DEVICES: None. HEART / MEDIASTINUM: No significant abnormality. LUNGS / PLEURA: No significant pulmonary or pleural abnormality. No pneumothorax. ADDITIONAL FINDINGS: IMPRESSION: 1. No acute cardiopulmonary disease Signer Name: Jan Andersen MD Signed: 03/13/2020 3:25 PM Workstation Name: [id number]
[2020-03-13 15:32] LABS: Hematocrit 42.8 % (30.3-42.9); Hemoglobin 13.2 gm/dl (10.1-14.3); Mean Corpuscular HGB Conc 31 % (30-34); Mean Corpuscular Volume 86 fl (79-97); Platelet Count 267 K/mm3 (140-440); Red Blood Count 4.98 M/mm3 (3.65-5.03); Red Cell Distribution Width 15.2 % (13.2-15.2)
[2020-03-13 15:39] LABS: BUN/Creatinine Ratio 11; Blood Urea Nitrogen 12 mg/dL (7-17); Calcium 8.8 mg/dL (8.4-10.2); Hemolysis Index 38
[2020-03-13 16:26] LABS: Basophils % (Manual) 0 % (0.0-1.8); Eosinophils % (Manual) 0 % (0.0-4.3); Total Cells Counted 100
[2020-03-13 16:27] LABS: Giant Platelets Rare; Large Platelets 1+; Platelet Estimate Consistent w Auto; RBC Morphology Normal
[2020-03-13 16:56] VITALS: BP 109/87
== END 2020-03-13 16:56 | disposition home or self-care (01) ==
LOC: ED 11:02
DX: J45.901 Unspecified asthma with (acute) exacerbation (principal); R06.02 Shortness of breath; K21.9 Gastro-esophageal reflux disease without esophagitis; Z98.51 Tubal ligation status; Z98.890 Other specified postprocedural states; Z79.899 Other long term (current) drug therapy; Z88.8 Allergy status to other drugs, medicaments and biological substances
CPT/HCPCS: 36415; 71045; 80048; 83880; 85007; 85025; 94640; 96365; 96375; 99284; J2930; J3475; 94644

== ENCOUNTER 2020-04-07 01:39 | Emergency (ER) | payer MEDICARE ==
[2020-04-07] MEDS ORDERED: ALBUTEROL 2.5 MG/3 ML NEBU IH ONE ×2 (01:47→07:41)
[2020-04-07] MEDS ORDERED: IPRATROPIUM 0.02% NEBU 2.5 ML IH ONE (01:47)
[2020-04-07] MEDS ORDERED: methylPREDNISolone Sod Succinate 125 MG/2 ML INJ IV ONE (01:47)
[2020-04-07] MEDS ORDERED: MAGNESIUM SULFATE 2 GM/50 ML BAG IV ONE (01:47)
[2020-04-07] MEDS ORDERED: ACETAMINOPHEN 325 MG/10.15 ML ORAL LIQD UNIT DOSE PO ONE (01:55)
[2020-04-07] MEDS ORDERED: EPINEPHrine/PF 1 MG/1 ML INJ SUB-Q ONE (01:55)
[2020-04-07] MEDS ORDERED: SODIUM CHLORIDE 0.9% 500 ML 500 ML IV ONE (01:55)
--- NOTE | 2020-04-07 01:56 | Emergency Department Report ---
<LINDSAY CERON - Last Filed: 04/07/20 05:32> ED General Adult HPI - General Chief complaint: Adult Asthma Stated complaint: ASTHMA ATTACK SILVIANO PUI?: No Time Seen by Provider: 04/07/20 01:45 Source: patient, EMS ( EMS documentation not available at time of chart dictation ), RN notes reviewed, old records reviewed Mode of arrival: Stretcher Limitations: Physical Limitation - History of Present Illness Initial comments: Patient is a 44-year-old female with a history of morbid obesity, asthma, sinusi tis, multiple ER evaluations for asthma, presenting to the ER with her typical constellation of asthmatic symptoms, including cough, wheezing, chest wall pain. Symptoms present for 3 days. They got worse earlier on today. The patient denies DVT and pulmonary embolism risk factors. She denies fever. No leg pain or leg swelling. No abdominal pain. No nausea vomiting or diarrhea. Symptoms typically improved with albuterol, Atrovent, steroids, magnesium and supportive care. She does endorse that she has been intubated 3 times. She typically follows with pulmonology, Dr. Marlen Sosa She is not sure she takes her maintenance medication. She has been taking albuterol inhalers at home. -: Gradual, days(s) Location: chest (Chest wall pain with coughing and wheezing. Otherwise, no physical pain) Radiation: non-radiation Quality: aching Consistency: intermittent Improves with: rest Worsens with: movement - Related Data Home Medications Medication Instructions Recorded Confirmed Last Taken AtorvaSTATin [Lipitor] 40 mg PO QHS 01/12/20 02/24/20 Unknown Cetirizine HCl [Cetirizine 5mg tab] 10 mg PO QDAY 01/12/20 02/24/20 Unknown Levothyroxine [Synthroid] 25 mcg PO QDAY 02/24/20 02/24/20 Unknown Previous Rx's Medication Instructions Recorded Last Taken Type Albuterol Sulfate [Proventil Hfa] 2 puff IH Q4HR PRN #1 hfa.aer.ad 05/28/19 01/12/20 Rx Montelukast [Singulair] 10 mg PO QPM #14 tablet 12/01/19 Unknown Rx Acetaminophen [Acetaminophen TAB] 325 mg PO Q4H PRN #15 tablet 01/14/20 Unknown Rx Pantoprazole [Protonix TAB] 40 mg PO DAILY #14 tablet 01/14/20 Unknown Rx Prednisone [predniSONE 5 mg (6-Day 5 mg PO .TAPER #1 tab.ds.pk 02/26/20 Unknown Rx Pack, 21 Tabs)] Pramoxine HCl/Zinc Oxide 56 gm TP TID 7 Days #1 oint...g. 03/04/20 Unknown Rx [Hemorrhoid 1%-12.5% Ointment] Albuterol INH(or & Nicu Only) 2 puff IH QID PRN #8.5 gram 03/13/20 Unknown Rx [ProAir HFA Inhaler] Albuterol Sulfate [Albuterol 0.63% 0.63 mg IH TID PRN #90 ml 03/13/20 Unknown Rx NEBS] ALBUTEROL NEB's [Proventil 0.083% 2.5 mg IH TID PRN 30 Days #1 box 03/23/20 Unknown Rx NEBS] Prednisone [predniSONE 10 mg 10 mg PO .TAPER #1 tab.ds.pk 03/23/20 Unknown Rx (6-Day Pack, 21 Tabs)] Sulfamethoxazole/Trimethoprim 1 each PO BID 10 Days #20 tablet 03/23/20 Unknown Rx [Bactrim DS TAB] Acetaminophen [Non-Aspirin Extra 500 mg PO Q6HR PRN #30 tablet 04/07/20 Unknown Rx Strength] Albuterol Sulfate [Proair 90 mcg IH Q4HR PRN #2 aer.pow.ba 04/07/20 Unknown Rx Respiclick] predniSONE [Deltasone] 40 mg PO QDAY #8 tab 04/07/20 Unknown Rx Allergies Allergy/AdvReac Type Severity Reaction Status Date / Time aspirin Allergy Anaphylaxis Verified 01/13/20 11:14 azithromycin [From Zithromax] Allergy Anaphylaxis Verified 01/12/20 11:49 doxycycline Allergy Rash Verified 08/31/19 16:04 ketorolac tromethamine Allergy Anaphylaxis Verified 08/31/19 16:04 [From Toradol] Latex, Natural Rubber Allergy Angioedema Verified 08/31/19 16:04 morphine Allergy Shortness Verified 08/31/19 16:04 of Breath NSAIDS (Non-Steroidal Allergy Anaphylaxis Verified 01/12/20 11:49 Anti-Inflamma Penicillins Allergy Hives Verified 01/12/20 11:49 ED Review of Systems Constitutional: malaise. denies: fever Eyes: denies: eye discharge ENT: congestion Respiratory: cough, shortness of breath, SOB with exertion, SOB at rest, wheezing Cardiovascular: chest pain (Chest wall pain). denies: syncope Gastrointestinal: denies: nausea, vomiting, diarrhea Genitourinary: denies: dysuria Musculoskeletal: myalgia (Chronic) Neurological: weakness ED Past Medical Hx - Past Medical History Hx Hypertension: No Hx Heart Attack/AMI: No Hx Congestive Heart Failure: No Hx Diabetes: No Hx Deep Vein Thrombosis: No Hx Pulmonary Embolism: No Hx GERD: Yes Hx Liver Disease: No Hx Renal Disease: No Hx Sickle Cell Disease: No Hx Arthritis: No Hx Seizures: No Hx Kidney Stones: No Hx Asthma: Yes Hx COPD: No Hx Tuberculosis: No Hx Dementia: No Hx HIV: No Additional medical history: sinus problems. Prior Intubations x3. Obesity. hypothyroid - Surgical History Hx Coronary Stent: No Hx Open Heart Surgery: No Hx Pacemaker: No Hx Internal Defibrillator: No Hx Cholecystectomy: No Hx Appendectomy: No Hx Breast Surgery: No Additional Surgical History: x4, umbilical hernia repair, sinus surgeries, D&C. thyroid removal. tubligation - Social History Smoking Status: Never Smoker Substance Use Type: None - Medications Home Medications: Home Medications Medication Instructions Recorded Confirmed Last Taken Type Albuterol Sulfate [Proventil Hfa] 2 puff IH Q4HR PRN #1 hfa.aer.ad 05/28/19 02/24/20 01/12/20 Rx Montelukast [Singulair] 10 mg PO QPM #14 tablet 12/01/19 02/24/20 Unknown Rx AtorvaSTATin [Lipitor] 40 mg PO QHS 01/12/20 02/24/20 Unknown History Cetirizine HCl [Cetirizine 5mg tab] 10 mg PO QDAY 01/12/20 02/24/20 Unknown History Acetaminophen [Acetaminophen TAB] 325 mg PO Q4H PRN #15 tablet 01/14/20 02/24/20 Unknown Rx Pantoprazole [Protonix TAB] 40 mg PO DAILY #14 tablet 01/14/20 02/24/20 Unknown Rx Levothyroxine [Synthroid] 25 mcg PO QDAY 02/24/20 02/24/20 Unknown History Prednisone [predniSONE 5 mg (6-Day 5 mg PO .TAPER #1 tab.ds.pk 02/26/20 Unknown Rx Pack, 21 Tabs)] Pramoxine HCl/Zinc Oxide 56 gm TP TID 7 Days #1 oint...g. 03/04/20 Unknown Rx [Hemorrhoid 1%-12.5% Ointment] Albuterol INH(or & Nicu Only) 2 puff IH QID PRN #8.5 gram 03/13/20 Unknown Rx [ProAir HFA Inhaler] Albuterol Sulfate [Albuterol 0.63% 0.63 mg IH TID PRN #90 ml 03/13/20 Unknown Rx NEBS] ALBUTEROL NEB's [Proventil 0.083% 2.5 mg IH TID PRN 30 Days #1 box 03/23/20 Unknown Rx NEBS] Prednisone [predniSONE 10 mg 10 mg PO .TAPER #1 tab.ds.pk 03/23/20 Unknown Rx (6-Day Pack, 21 Tabs)] Sulfamethoxazole/Trimethoprim 1 each PO BID 10 Days #20 tablet 03/23/20 Unknown Rx [Bactrim DS TAB] Acetaminophen [Non-Aspirin Extra 500 mg PO Q6HR PRN #30 tablet 04/07/20 Unknown Rx Strength] Albuterol Sulfate [Proair 90 mcg IH Q4HR PRN #2 aer.pow.ba 04/07/20 Unknown Rx Respiclick] predniSONE [Deltasone] 40 mg PO QDAY #8 tab 04/07/20 Unknown Rx ED Physical Exam - General Limitations: Physical Limitation General appearance: alert, anxious, in distress, obese - Head Head exam: Present: atraumatic, normocephalic - Eye Eye exam: Present: normal appearance, EOMI. Absent: nystagmus - ENT ENT exam: Present: normal exam, normal orophraynx, mucous membranes moist, normal external ear exam - Neck Neck exam: Present: normal inspection, full ROM. Absent: tenderness, meningismus - Respiratory Respiratory exam: Present: respiratory distress, wheezes, chest wall tenderness, decreased breath sounds. Absent: rales, rhonchi, stridor - Cardiovascular Cardiovascular Exam: Present: regular rate, normal rhythm, normal heart sounds. Absent: bradycardia, tachycardia, irregular rhythm, systolic murmur, diastolic murmur, rubs, gallop - GI/Abdominal GI/Abdominal exam: Present: soft. Absent: distended, tenderness, guarding, rebound, rigid, pulsatile mass - Extremities Exam Extremities exam: Present: normal inspection, full ROM, other (2+ pulses noted in the bilateral upper and lower extremities. There is no palpable cord. negative Homans sign. Muscular compartments are soft. The pelvis is stable.). Absent: pedal edema, calf tenderness - Back Exam Back exam: Present: normal inspection, full ROM. Absent: tenderness, CVA tenderness (R), CVA tenderness (L), paraspinal tenderness, vertebral tenderness - Neurological Exam Neurological exam: Present: alert, other (No facial droop. Tongue midline. Extraocular movements intact bilaterally. Facial sensation intact to light touch in V1, V2, V3 distribution bilaterally. 5 and a 5 strength in 4 extremities. Sensation intact to light touch in 4 extremities.). Absent: motor sensory deficit - Psychiatric Psychiatric exam: Present: normal affect, normal mood - Skin Skin exam: Present: warm, dry, intact, normal color. Absent: rash ED Course - Reevaluation(s) Reevaluation #1: 04/07/20 01:58 Differential diagnosis, including but not limited to: Asthma exacerbation, bronchitis, pneumonia, pneumothorax Assessment and plan: 49-year-old female with quite wheezing, respiratory distress, chest wall pain, costochondritis, denies DVT and pulmonary embolism risk factors, low risk by Wells criteria, likely presenting with asthma exacerbation and costochondritis. Treat with Tylenol, albuterol, Atrovent, steroids, magnesium and subcutaneous epinephrine. Give IV fluids. Obtain x-ray of the chest and EKG. Patient ruled out recently for COVID. She also states that she has not been exposed to anybody with COVID. Reevaluation #2: 04/07/20 03:03 Patient refusing subcutaneous epinephrine administration. I explained the benefits of this medication for acute asthma exacerbation. I explained the risks of not receiving this medicine, including worsening clinical condition, respiratory failure, need for intubation, and even . At the moment, the patient is awake, alert, oriented, clinically sober and exhibits decision-making capacity. She is able to articulate these risks and benefits in her own words. She states that she would like to consider this after receiving albuterol, Atrovent, steroids and magnesium. This conversation is witnessed by nurse Lexi Fernandez Reevaluation #3: 07/02/20 05:13 Patient reassessed multiple times. Still wheezing but clinically improved. Still receiving nebulizer therapy. Care will be transferred to the oncoming physician, Dr. Jonelle Shaw, to reassess after completion of nebulizer therapy. ED Medical Decision Making - Lab Data Result diagrams: 04/07/20 02:33 04/07/20 02:33 Vital Signs 04/07/20 04/07/20 04/07/20 01:59 02:00 02:01 Temperature 99.2 F Pulse Rate 107 H 106 H Respiratory 17 18 Rate Blood Pressure 129/68 Blood Pressure 129/68 [Left] O2 Sat by Pulse 93 93 94 Oximetry Lab Results 04/07/20 04/07/20 Range/Units 02:33 02:33 WBC 10.6 (4.5-11.0) K/mm3 RBC 4.43 (3.65-5.03) M/mm3 Hgb 12.7 (10.1-14.3) gm/dl Hct 38.7 (30.3-42.9) % MCV 87 (79-97) fl MCH 29 (28-32) pg MCHC 33 (30-34) % RDW 14.8 (13.2-15.2) % Plt Count 239 (140-440) K/mm3 Lymph % (Auto) 17.1 (13.4-35.0) % Coffey % (Auto) 9.2 H (0.0-7.3) % Eos % (Auto) 5.8 H (0.0-4.3) % Baso % (Auto) 0.8 (0.0-1.8) % Lymph # 1.8 (1.2-5.4) K/mm3 Coffey # 1.0 H (0.0-0.8) K/mm3 Eos # 0.6 H (0.0-0.4) K/mm3 Baso # 0.1 (0.0-0.1) K/mm3 Seg Neutrophils % 67.1 (40.0-70.0) % Seg Neutrophils # 7.1 (1.8-7.7) K/mm3 Sodium 139 (137-145) mmol/L Potassium 3.7 (3.6-5.0) mmol/L Chloride 104.5 (98-107) mmol/L Carbon Dioxide 21 L (22-30) mmol/L Anion Gap 17 mmol/L BUN 12 (7-17) mg/dL Creatinine 0.8 (0.7-1.2) mg/dL Estimated GFR > 60 ml/min BUN/Creatinine Ratio 15 % Glucose 152 H (65-100) mg/dL Calcium 8.8 (8.4-10.2) mg/dL Magnesium 1.90 (1.7-2.3) mg/dL Total Creatine Kinase 466 H (30-135) units/L Troponin T < 0.010 (0.00-0.029) ng/mL - EKG Data -: EKG Interpreted by Me EKG shows normal: sinus rhythm Rate: tachycardia - EKG Data 04/07/20 02:21 Sinus rhythm, tachycardia, 106 bpm, normal axis, QTC 443 ms, abnormal EKG, not a STEMI. - Radiology Data Radiology results: pending, image reviewed interpreted by me: X-ray of the chest is negative for acute finding Critical Care Time: Yes Critical care time in (mins) excluding proc time.: 35 ED Disposition Clinical Impression: Asthma exacerbation, Chest wall pain Disposition: TO HOME OR SELFCARE Condition: Stable Instructions: Asthma (ED), Costochondritis (ED) Additional Instructions: Take the medications as needed and directed. 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 Return to the emergency room right away with new pain, worsening pain, migration of pain, projectile vomiting, change in mental status, confusion, inability to tolerate liquid feeds, new, worsened or different symptoms not present on the initial emergency room evaluation. Prescriptions: predniSONE [Deltasone] 40 mg PO QDAY #8 tab Acetaminophen [Non-Aspirin Extra Strength] 500 mg PO Q6HR PRN #30 tablet PRN Reason: Pain , Severe (7-10) Albuterol Sulfate [Proair Respiclick] 90 mcg IH Q4HR PRN #2 aer.pow.ba PRN Reason: Wheezing Referrals: HIWOT BRUON MD [Primary Care Provider] - 3-5 Days PARKER BROCK MD [Staff Physician] - 3-5 Days <MINE SHAW - Last Filed: 04/07/20 14:11> ED Review of Systems ROS: Stated complaint: ASTHMA ATTACK SILVIANO Other details as noted in HPI ED Course Vital Signs 07/11/2604/07/20 04/07/20 01:59 02:00 02:01 Temperature 99.2 F Pulse Rate 107 H 106 H Pulse Rate [ Posterior] Respiratory 17 18 Rate Respiratory Rate [Posterior ] Blood Pressure 129/68 Blood Pressure 129/68 [Left] O2 Sat by Pulse 93 93 94 Oximetry 04/07/20 04/07/20 04/07/20 02:15 02:16 02:30 Temperature Pulse Rate 105 H 97 H Pulse Rate [ Posterior] Respiratory 20 Rate Respiratory Rate [Posterior ] Blood Pressure 129/68 129/68 Blood Pressure [Left] O2 Sat by Pulse 95 94 98 Oximetry 04/07/20 04/07/20 04/07/20 02:46 03:00 03:16 Temperature Pulse Rate 97 H 94 H 100 H Pulse Rate [ Posterior] Respiratory Rate Respiratory Rate [Posterior ] Blood Pressure 129/68 129/68 129/68 Blood Pressure [Left] O2 Sat by Pulse 97 95 98 Oximetry 04/07/20 04/07/20 04/07/20 03:30 03:42 03:46 Temperature Pulse Rate 95 H 80 Pulse Rate [ 88 Posterior] Respiratory Rate Respiratory 25 H Rate [Posterior ] Blood Pressure 129/68 129/68 Blood Pressure [Left] O2 Sat by Pulse 98 99 Oximetry 04/07/20 04/07/20 04/07/20 04:00 04:16 04:30 Temperature Pulse Rate 80 78 83 Pulse Rate [ Posterior] Respiratory Rate Respiratory Rate [Posterior ] Blood Pressure 129/68 129/68 129/68 Blood Pressure [Left] O2 Sat by Pulse 98 98 98 Oximetry 04/07/20 04/07/20 04/07/20 04:46 05:00 05:16 Temperature Pulse Rate 101 H 83 91 H Pulse Rate [ Posterior] Respiratory Rate Respiratory Rate [Posterior ] Blood Pressure 129/68 129/68 129/68 Blood Pressure [Left] O2 Sat by Pulse 99 99 98 Oximetry 04/07/20 04/07/20 04/07/20 05:30 05:46 06:00 Temperature Pulse Rate 111 H 95 H 88 Pulse Rate [ Posterior] Respiratory Rate Respiratory Rate [Posterior ] Blood Pressure 129/68 129/68 129/68 Blood Pressure [Left] O2 Sat by Pulse 99 100 100 Oximetry 04/07/20 04/07/20 08:25 10:46 Temperature Pulse Rate Pulse Rate [ 98 H Posterior] Respiratory Rate Respiratory 18 Rate [Posterior ] Blood Pressure Blood Pressure [Left] O2 Sat by Pulse 95 Oximetry - Reevaluation(s) Reevaluation #4: 04/07/20 07:40 pt feeling "100%" better but still with mild and expiratory wheezing and requests an additional treatment prior to discharge 04/07/20 pt improved further with additional nebs room air sat 98%, pt d/ce with scripts ED Medical Decision Making - Lab Data Result diagrams: 04/07/20 02:33 04/07/20 02:33 Critical care attestation.: If time is entered above; I have spent that time in minutes in the direct care of this critically ill patient, excluding procedure time. ED Disposition Is pt being admited?: No
[2020-04-07 02:05] VITALS: BP 129/68
--- NOTE | 2020-04-07 02:56 | XRay Report ---
CHEST 1 VIEW INDICATION: dyspnea. COMPARISON: 1720 FINDINGS: Support devices: None. Heart: Normal. Lungs/Pleura: No acute pulmonary or pleural findings. IMPRESSION: 1. No acute findings. Signer Name: Arron Bird MD Signed: 04/07/2020 2:52 AM Workstation Name: [id number]
[2020-04-07 03:30] LABS: BUN/Creatinine Ratio 15; Blood Urea Nitrogen 12 mg/dL (7-17); Calcium 8.8 mg/dL (8.4-10.2); Hemolysis Index 73
[2020-04-07 03:36] LABS: Basophils # (Auto) 0.1 K/mm3 (0.0-0.1); Basophils % (Auto) 0.8 % (0.0-1.8); Eosinophils # (Auto) 0.6 K/mm3 (0.0-0.4); Eosinophils % (Auto) 5.8 % (0.0-4.3); Hematocrit 38.7 % (30.3-42.9); Hemoglobin 12.7 gm/dl (10.1-14.3); Lymphocytes # (Auto) 1.8 K/mm3 (1.2-5.4); Lymphocytes % (Auto) 17.1 % (13.4-35.0); Mean Corpuscular HGB Conc 33 % (30-34); Mean Corpuscular Volume 87 fl (79-97); Monocytes % (Auto) 9.2 % (0.0-7.3); Platelet Count 239 K/mm3 (140-440); Red Blood Count 4.43 M/mm3 (3.65-5.03); Red Cell Distribution Width 14.8 % (13.2-15.2)
[2020-04-07 03:47] LABS: INR 1.01 (0.87-1.13)
== END 2020-04-07 11:30 | disposition home or self-care (01) ==
LOC: ED 01:39
DX: R07.89 Other chest pain (principal); J45.901 Unspecified asthma with (acute) exacerbation; Z98.51 Tubal ligation status; Z98.890 Other specified postprocedural states; Z79.899 Other long term (current) drug therapy; Z88.6 Allergy status to analgesic agent; Z88.0 Allergy status to penicillin; Z88.4 Allergy status to anesthetic agent; Z88.8 Allergy status to other drugs, medicaments and biological substances
CPT/HCPCS: 36415; 71045; 80048; 82550; 83735; 84484; 85025; 85610; 93005; 94640; 94644; 96365; 96375; 99285; J2930; J3475; J7040; 94760; J0171

== ENCOUNTER 2020-05-02 21:34 | Emergency (ER) | payer MEDICARE ==
[2020-05-02] MEDS ORDERED: IPRATROPIUM/ALBUTEROL SULFATE 3 ML AMPUL.NEB IH ONE (21:42)
[2020-05-02] MEDS ORDERED: ALBUTEROL 2.5 MG/3 ML NEBU IH ONE (22:30)
[2020-05-02] MEDS ORDERED: IPRATROPIUM 0.02% NEBU 2.5 ML IH ONE (22:30)
[2020-05-02] MEDS ORDERED: methylPREDNISolone Sod Succinate 125 MG/2 ML INJ IV ONE (22:30)
[2020-05-02] MEDS ORDERED: MAGNESIUM SULFATE 2 GM/50 ML BAG IV ONE (22:30)
--- NOTE | 2020-05-02 22:54 | XRay Report ---
CHEST 1 VIEW INDICATION: MAIN. COMPARISON: 04/07/2020 FINDINGS: SUPPORT DEVICES: None. HEART: Within normal limits. LUNGS/PLEURA: No acute air space or interstitial disease. ADDITIONAL FINDINGS: None. IMPRESSION: 1. No acute findings. Signer Name: John Moeller MD Signed: 05/02/2020 10:50 PM Workstation Name: [id number]
--- NOTE | 2020-05-02 23:21 | Emergency Department Report ---
ED Shortness of Breath HPI - General Chief Complaint: Dyspnea/Respdistress Stated Complaint: SILVIANO/CHRONIC ASTHMA Time Seen by Provider: 05/02/20 22:20 Source: patient, old records reviewed Mode of arrival: Ambulatory Limitations: No Limitations - History of Present Illness Initial Comments: 49-year-old female the past medical history of asthma with 3 prior intubations, chronic intermittent sinus problems, GERD, tubal ligation, obesity, hypothyroidism, and frequent ER visit secondary to frequent asthma exacerbations presents to the hospital with complaints of shortness of breath and wheezing secondary to asthma and sinus problems x1 week. Patient is had nasal congestion and intermittent mucus productive of yellow sputum. She has been using her b ronchodilator frequently without improvement. Patient denies fever. Has associated chest tightness secondary to wheezing and shortness of breath patient tested negative for COVID 1 month ago. 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 - Related Data Home Medications Medication Instructions Recorded Confirmed Last Taken AtorvaSTATin [Lipitor] 40 mg PO QHS 01/12/20 04/23/20 Unknown Levothyroxine [Synthroid] 25 mcg PO QDAY 02/24/20 04/23/20 Unknown Ascorbic Acid [Vitamin C] 04/23/20 Unknown Cinnamon 04/23/20 Unknown Ergocalciferol(Vitamin D2)(Nf) 04/23/20 Unknown [Vitamin D (Nf)] Fluticasone/Salmeterol [Advair 1 puff IH BID 04/23/20 04/23/20 Unknown Diskus 500-50 mcg] Vitamin E 04/23/20 Unknown Previous Rx's Medication Instructions Recorded Last Taken Type ALBUTEROL NEB's [Proventil 0.083% 2.5 mg IH Q6HRT PRN nebu 04/23/20 Unknown Rx NEBS] Diphenoxylate/Atropine [Lomotil] 1 tab PO Q6H PRN #14 tablet 04/23/20 Unknown Rx levoFLOXacin [Levaquin TAB] 500 mg PO Q24HR #7 tablet 04/23/20 Unknown Rx metroNIDAZOLE [Flagyl TAB] 500 mg PO Q12H #14 tablet 04/23/20 Unknown Rx ALBUTEROL NEB's [Proventil 0.083% 2.5 mg IH TID PRN 30 Days #1 box 05/03/20 Unknown Rx NEBS] Albuterol Sulfate [Proair 90 mcg IH Q4HR PRN #1 aer.pw.bas 05/03/20 Unknown Rx Digihaler] Cetirizine HCl/Pseudoephedrine 1 each PO BID PRN #20 tab.er.12h 05/03/20 Unknown Rx [Zyrtec-D Tablet] Prednisone [predniSONE 10 mg 10 mg PO .TAPER #1 tab.ds.pk 05/03/20 Unknown Rx (6-Day Pack, 21 Tabs)] Allergies Allergy/AdvReac Type Severity Reaction Status Date / Time aspirin Allergy Anaphylaxis Verified 01/13/20 11:14 azithromycin [From Zithromax] Allergy Anaphylaxis Verified 01/12/20 11:49 doxycycline Allergy Rash Verified 08/31/19 16:04 ketorolac tromethamine Allergy Anaphylaxis Verified 08/31/19 16:04 [From Toradol] Latex, Natural Rubber Allergy Angioedema Verified 08/31/19 16:04 morphine Allergy Shortness Verified 08/31/19 16:04 of Breath NSAIDS (Non-Steroidal Allergy Anaphylaxis Verified 01/12/20 11:49 Anti-Inflamma Penicillins Allergy Hives Verified 01/12/20 11:49 ED Review of Systems ROS: Stated complaint: SILVIANO/CHRONIC ASTHMA Other details as noted in HPI Comment: All other systems reviewed and negative ED Past Medical Hx - Past Medical History Previous Medical History?: Yes Hx Hypertension: No Hx Heart Attack/AMI: No Hx Congestive Heart Failure: No Hx Diabetes: No Hx Deep Vein Thrombosis: No Hx Pulmonary Embolism: No Hx GERD: Yes Hx Liver Disease: No Hx Renal Disease: No Hx Sickle Cell Disease: No Hx Arthritis: No Hx Seizures: No Hx Kidney Stones: No Hx Asthma: Yes Hx COPD: No Hx Tuberculosis: No Hx Dementia: No Hx HIV: No Additional medical history: sinus problems. Prior Intubations x3. Obesity. hypothyroid - Surgical History Past Surgical History?: Yes Hx Coronary Stent: No Hx Open Heart Surgery: No Hx Pacemaker: No Hx Internal Defibrillator: No Hx Cholecystectomy: No Hx Appendectomy: No Hx Breast Surgery: No Additional Surgical History: x4, umbilical hernia repair, sinus surgeries, D&C. thyroid removal. tubligation - Social History Smoking Status: Never Smoker Substance Use Type: None - Medications Home Medications: Home Medications Medication Instructions Recorded Confirmed Last Taken Type AtorvaSTATin [Lipitor] 40 mg PO QHS 01/12/20 04/23/20 Unknown History Levothyroxine [Synthroid] 25 mcg PO QDAY 02/24/20 04/23/20 Unknown History ALBUTEROL NEB's [Proventil 0.083% 2.5 mg IH Q6HRT PRN nebu 04/23/20 Unknown Rx NEBS] Ascorbic Acid [Vitamin C] 04/23/20 Unknown History Cinnamon 04/23/20 Unknown History Diphenoxylate/Atropine [Lomotil] 1 tab PO Q6H PRN #14 tablet 04/23/20 Unknown Rx Ergocalciferol(Vitamin D2)(Nf) 04/23/20 Unknown History [Vitamin D (Nf)] Fluticasone/Salmeterol [Advair 1 puff IH BID 04/23/20 04/23/20 Unknown History Diskus 500-50 mcg] Vitamin E 04/23/20 Unknown History levoFLOXacin [Levaquin TAB] 500 mg PO Q24HR #7 tablet 04/23/20 Unknown Rx metroNIDAZOLE [Flagyl TAB] 500 mg PO Q12H #14 tablet 04/23/20 Unknown Rx ALBUTEROL NEB's [Proventil 0.083% 2.5 mg IH TID PRN 30 Days #1 box 05/03/20 Unknown Rx NEBS] Albuterol Sulfate [Proair 90 mcg IH Q4HR PRN #1 aer.pw.bas 05/03/20 Unknown Rx Digihaler] Cetirizine HCl/Pseudoephedrine 1 each PO BID PRN #20 tab.er.12h 05/03/20 Unknown Rx [Zyrtec-D Tablet] Prednisone [predniSONE 10 mg 10 mg PO .TAPER #1 tab.ds.pk 05/03/20 Unknown Rx (6-Day Pack, 21 Tabs)] ED Physical Exam - General Limitations: No Limitations - Other Other exam information: General: No acute distress Head: Atraumatic Eyes: normal appearance ENT: Moist mucous membranes Neck: Normal appearance, no midline tenderness Chest: Bilateral wheezing, mild tachypnea CV: Regular rate and rhythm Abdomen: Soft, normal bowel sounds, nontender, nondistended, no rebound or guarding Back: Normal inspection Extremity: Normal inspection, full range of motion, no calf tenderness or leg edema Neuro: Alert O x 3, no facial asymmetry, speech clear, no gross motor sensory deficit Psych: Appropriate behavior Skin: No rash ED Course Vital Signs 05/02/20 05/02/20 05/02/20 21:38 22:01 22:18 Temperature 99.2 F Pulse Rate 111 H Pulse Rate [ 97 H Posterior Bilateral Throughout] Respiratory 20 Rate Respiratory 18 Rate [Posterior Bilateral Throughout] Blood Pressure 132/110 O2 Sat by Pulse 91 94 Oximetry 05/02/20 05/02/20 05/02/20 22:30 23:00 23:30 Temperature Pulse Rate 104 H 103 H 75 Pulse Rate [ Posterior Bilateral Throughout] Respiratory 18 21 16 Rate Respiratory Rate [Posterior Bilateral Throughout] Blood Pressure 122/76 113/72 93/44 O2 Sat by Pulse 92 91 94 Oximetry 05/03/20 05/03/20 05/03/20 00:00 00:30 01:00 Temperature Pulse Rate 93 H 101 H 93 H Pulse Rate [ Posterior Bilateral Throughout] Respiratory 21 17 19 Rate Respiratory Rate [Posterior Bilateral Throughout] Blood Pressure 110/59 125/62 121/56 O2 Sat by Pulse 95 Oximetry 05/03/20 05/03/20 05/03/20 01:30 02:00 02:30 Temperature Pulse Rate 94 H 85 88 Pulse Rate [ Posterior Bilateral Throughout] Respiratory 19 17 19 Rate Respiratory Rate [Posterior Bilateral Throughout] Blood Pressure 121/56 117/60 103/70 O2 Sat by Pulse Oximetry 05/03/20 05/03/20 05/03/20 02:33 03:00 03:17 Temperature 98.4 F Pulse Rate 71 Pulse Rate [ Posterior Bilateral Throughout] Respiratory 18 19 Rate Respiratory Rate [Posterior Bilateral Throughout] Blood Pressure 101/62 O2 Sat by Pulse 93 95 Oximetry 05/03/20 05/03/20 03:30 03:56 Temperature Pulse Rate 97 H Pulse Rate [ 88 Posterior Bilateral Throughout] Respiratory 20 Rate Respiratory 18 Rate [Posterior Bilateral Throughout] Blood Pressure O2 Sat by Pulse 94 Oximetry ED Medical Decision Making - Lab Data Result diagrams: 05/02/20 23:11 05/02/20 23:11 Lab Results 05/02/20 05/02/20 Range/Units 23:11 23:11 WBC 11.0 (4.5-11.0) K/mm3 RBC 4.63 (3.65-5.03) M/mm3 Hgb 12.5 (10.1-14.3) gm/dl Hct 39.8 (30.3-42.9) % MCV 86 (79-97) fl MCH 27 L (28-32) pg MCHC 32 (30-34) % RDW 14.8 (13.2-15.2) % Plt Count 234 (140-440) K/mm3 Lymph % (Auto) 15.6 (13.4-35.0) % [place] % (Auto) 6.9 (0.0-7.3) % Eos % (Auto) 6.8 H (0.0-4.3) % Baso % (Auto) 0.8 (0.0-1.8) % Lymph # 1.7 (1.2-5.4) K/mm3 [place] # 0.8 (0.0-0.8) K/mm3 Eos # 0.7 H (0.0-0.4) K/mm3 Baso # 0.1 (0.0-0.1) K/mm3 Seg Neutrophils % 69.9 (40.0-70.0) % Seg Neutrophils # 7.7 (1.8-7.7) K/mm3 Sodium 139 (137-145) mmol/L Potassium 3.5 L (3.6-5.0) mmol/L Chloride 103.3 (98-107) mmol/L Carbon Dioxide 23 (22-30) mmol/L Anion Gap 16 mmol/L BUN 7 (7-17) mg/dL Creatinine 0.9 (0.7-1.2) mg/dL Estimated GFR > 60 ml/min BUN/Creatinine Ratio 8 % Glucose 184 H (65-100) mg/dL Calcium 8.9 (8.4-10.2) mg/dL - Radiology Data Radiology results: report reviewed CHEST 1 VIEW INDICATION: MAIN. COMPARISON: 04/07/2020 FINDINGS: SUPPORT DEVICES: None. HEART: Within normal limits. LUNGS/PLEURA: No acute air space or interstitial disease. ADDITIONAL FINDINGS: None. IMPRESSION: 1. No acute findings. - Medical Decision Making shortness of breath and wheezing improved with ED treatment of bronchodilators, Solu-Medrol, and magnesium.Patient developed sneezing episodes and while in the ED I suspect it may be caused by the floor cleaning solution in the ED. IV Benadryl provided. Chest x-ray unremarkable. Patient will be provided medication for sinus symptoms and acute asthma exacerbation. Antibiotics will not prescribed due to lack of fever, leukocytosis, and infiltrate Critical Care Time: No Critical care attestation.: If time is entered above; I have spent that time in minutes in the direct care of this critically ill patient, excluding procedure time. ED Disposition Clinical Impression: Acute asthma exacerbation, Sinusitis Disposition: TO HOME OR SELFCARE Is pt being admited?: No Does the pt Need Aspirin: No Condition: Stable Instructions: Asthma (ED), Sinusitis (ED) Additional Instructions: Take the medication as prescribed. Follow-up with your doctor or doctor/clinic provided. Return if symptoms worsen as indicated by your discharge instructions. Prescriptions: Prednisone [predniSONE 10 mg (6-Day Pack, 21 Tabs)] 10 mg PO .TAPER #1 tab.ds.pk Albuterol Sulfate [Proair Digihaler] 90 mcg IH Q4HR PRN #1 aer.pw.bas PRN Reason: Wheezing ALBUTEROL NEB's [Proventil 0.083% NEBS] 2.5 mg IH TID PRN 30 Days #1 box PRN Reason: Wheezing Cetirizine HCl/Pseudoephedrine [Zyrtec-D Tablet] 1 each PO BID PRN #20 tab.er.12h PRN Reason: Congestion Referrals: HIWOT BRUNO MD [Primary Care Provider] - 3-5 Days PARKER BROCK MD [Staff Physician] - 3-5 Days Time of Disposition: 04:38
[2020-05-02 23:48] LABS: Basophils # (Auto) 0.1 K/mm3 (0.0-0.1); Basophils % (Auto) 0.8 % (0.0-1.8); Eosinophils # (Auto) 0.7 K/mm3 (0.0-0.4); Eosinophils % (Auto) 6.8 % (0.0-4.3); Hematocrit 39.8 % (30.3-42.9); Hemoglobin 12.5 gm/dl (10.1-14.3); Lymphocytes # (Auto) 1.7 K/mm3 (1.2-5.4); Lymphocytes % (Auto) 15.6 % (13.4-35.0); Mean Corpuscular HGB Conc 32 % (30-34); Mean Corpuscular Volume 86 fl (79-97); Monocytes # (Auto) 0.8 K/mm3 (0.0-0.8); Monocytes % (Auto) 6.9 % (0.0-7.3); Platelet Count 234 K/mm3 (140-440); Red Blood Count 4.63 M/mm3 (3.65-5.03); Red Cell Distribution Width 14.8 % (13.2-15.2)
[2020-05-03 00:05] LABS: BUN/Creatinine Ratio 8; Blood Urea Nitrogen 7 mg/dL (7-17); Calcium 8.9 mg/dL (8.4-10.2); Hemolysis Index 5
[2020-05-03] MEDS ORDERED: ALBUTEROL 2.5 MG/3 ML NEBU IH ONE (03:25)
[2020-05-03] MEDS ORDERED: diphenhydrAMINE 50 MG/ML VIAL IV ONE (04:02)
[2020-05-03] MEDS ORDERED: diphenhydrAMINE 50 MG/ML VIAL ONE (06:11)
[2020-05-03 06:40] VITALS: BP 100/47
== END 2020-05-03 06:41 | disposition home or self-care (01) ==
LOC: ED 21:34
DX: J45.901 Unspecified asthma with (acute) exacerbation (principal); J32.9 Chronic sinusitis, unspecified; K21.9 Gastro-esophageal reflux disease without esophagitis; Z98.51 Tubal ligation status; Z98.890 Other specified postprocedural states; Z79.899 Other long term (current) drug therapy; Z88.0 Allergy status to penicillin; Z88.1 Allergy status to other antibiotic agents; Z88.6 Allergy status to analgesic agent; Z88.8 Allergy status to other drugs, medicaments and biological substances
CPT/HCPCS: 36415; 71045; 80048; 85025; 94640; 96365; 96375; 99284; J1200; J2930; J3475; 94644

== ENCOUNTER 2020-05-25 02:53 | Emergency (ER) | payer MEDICARE ==
--- NOTE | 2020-05-25 09:17 | Emergency Department Report ---
ED General Adult HPI - General Chief complaint: Pain General Stated complaint: RIGHT BREAST PAIN Time Seen by Provider: 05/25/20 09:01 Source: patient Mode of arrival: Ambulatory Limitations: No Limitations - History of Present Illness Initial comments: 49-year-old -[place] female that is well-known to this provider. Presents to the emergency room for right breast pain for 3 days. Patient denies any nipple discharge she denies any rash swelling or redness. Patient states that the pain is intermittent and sharp. She reports that she has scheduled for a mammogram next week. Patient denies any fever chills no nausea no vomiting. Onset/Timin -: days(s) Location: chest (Right chest breast) Severity scale (0 -10): 10 Quality: stabbing Consistency: intermittent Improves with: none Worsens with: none Associated Symptoms: denies other symptoms Treatments Prior to Arrival: none - Related Data Home Medications Medication Instructions Recorded Confirmed Last Taken AtorvaSTATin [Lipitor] 40 mg PO QHS 01/12/20 04/23/20 Unknown Levothyroxine [Synthroid] 25 mcg PO QDAY 02/24/20 04/23/20 Unknown Ascorbic Acid [Vitamin C] 04/23/20 Unknown Cinnamon 04/23/20 Unknown Ergocalciferol(Vitamin D2)(Nf) 04/23/20 Unknown [Vitamin D (Nf)] Fluticasone/Salmeterol [Advair 1 puff IH BID 04/23/20 04/23/20 Unknown Diskus 500-50 mcg] Vitamin E 04/23/20 Unknown Previous Rx's Medication Instructions Recorded Last Taken Type ALBUTEROL NEB's [Proventil 0.083% 2.5 mg IH Q6HRT PRN nebu 04/23/20 Unknown Rx NEBS] Diphenoxylate/Atropine [Lomotil] 1 tab PO Q6H PRN #14 tablet 04/23/20 Unknown Rx levoFLOXacin [Levaquin TAB] 500 mg PO Q24HR #7 tablet 04/23/20 Unknown Rx metroNIDAZOLE [Flagyl TAB] 500 mg PO Q12H #14 tablet 04/23/20 Unknown Rx Cetirizine HCl/Pseudoephedrine 1 each PO BID PRN #20 tab.er.12h 05/03/20 Unknown Rx [Zyrtec-D Tablet] ALBUTEROL NEB's [Proventil 0.083% 3 ml IH Q6H PRN 30 Days #75 ml 05/16/20 Unknown Rx NEBS] Albuterol Sulfate [Proair 1 - 2 puff IH Q4HR PRN #1 05/16/20 Unknown Rx Digihaler] aer.pw.bas Benzonatate [Tessalon Perles] 100 mg PO Q8HR #30 capsule 05/16/20 Unknown Rx Prednisone [predniSONE 10 mg 10 mg PO .TAPER #21 tab.ds.pk 05/16/20 Unknown Rx (6-Day Pack, 21 Tabs)] Allergies Allergy/AdvReac Type Severity Reaction Status Date / Time aspirin Allergy Anaphylaxis Verified 01/13/20 11:14 azithromycin [From Zithromax] Allergy Anaphylaxis Verified 01/12/20 11:49 doxycycline Allergy Rash Verified 08/31/19 16:04 ketorolac tromethamine Allergy Anaphylaxis Verified 08/31/19 16:04 [From Toradol] Latex, Natural Rubber Allergy Angioedema Verified 08/31/19 16:04 morphine Allergy Shortness Verified 08/31/19 16:04 of Breath NSAIDS (Non-Steroidal Allergy Anaphylaxis Verified 01/12/20 11:49 Anti-Inflamma Penicillins Allergy Hives Verified 01/12/20 11:49 ED Review of Systems ROS: Stated complaint: RIGHT BREAST PAIN Other details as noted in HPI Comment: All other systems reviewed and negative ED Past Medical Hx - Past Medical History Previous Medical History?: Yes Hx Hypertension: No Hx Heart Attack/AMI: No Hx Congestive Heart Failure: No Hx Diabetes: No Hx Deep Vein Thrombosis: No Hx Pulmonary Embolism: No Hx GERD: Yes Hx Liver Disease: No Hx Renal Disease: No Hx Sickle Cell Disease: No Hx Arthritis: No Hx Seizures: No Hx Kidney Stones: No Hx Asthma: Yes Hx COPD: No Hx Tuberculosis: No Hx Dementia: No Hx HIV: No Additional medical history: sinus problems. Prior Intubations x3. Obesity. hypothyroid - Surgical History Past Surgical History?: Yes Hx Coronary Stent: No Hx Open Heart Surgery: No Hx Pacemaker: No Hx Internal Defibrillator: No Hx Cholecystectomy: No Hx Appendectomy: No Hx Breast Surgery: No Additional Surgical History: x4, umbilical hernia repair, sinus surgeries, D&C. thyroid removal. tubligation - Social History Smoking Status: Never Smoker - Medications Home Medications: Home Medications Medication Instructions Recorded Confirmed Last Taken Type AtorvaSTATin [Lipitor] 40 mg PO QHS 01/12/20 04/23/20 Unknown History Levothyroxine [Synthroid] 25 mcg PO QDAY 02/24/20 04/23/20 Unknown History ALBUTEROL NEB's [Proventil 0.083% 2.5 mg IH Q6HRT PRN nebu 04/23/20 Unknown Rx NEBS] Ascorbic Acid [Vitamin C] 04/23/20 Unknown History Cinnamon 04/23/20 Unknown History Diphenoxylate/Atropine [Lomotil] 1 tab PO Q6H PRN #14 tablet 04/23/20 Unknown R x Ergocalciferol(Vitamin D2)(Nf) 04/23/20 Unknown History [Vitamin D (Nf)] Fluticasone/Salmeterol [Advair 1 puff IH BID 04/23/20 04/23/20 Unknown History Diskus 500-50 mcg] Vitamin E 04/23/20 Unknown History levoFLOXacin [Levaquin TAB] 500 mg PO Q24HR #7 tablet 04/23/20 Unknown Rx metroNIDAZOLE [Flagyl TAB] 500 mg PO Q12H #14 tablet 04/23/20 Unknown Rx Cetirizine HCl/Pseudoephedrine 1 each PO BID PRN #20 tab.er.12h 05/03/20 Unknown Rx [Zyrtec-D Tablet] ALBUTEROL NEB's [Proventil 0.083% 3 ml IH Q6H PRN 30 Days #75 ml 05/16/20 Unknown Rx NEBS] Albuterol Sulfate [Proair 1 - 2 puff IH Q4HR PRN #1 05/16/20 Unknown Rx Digihaler] aer.pw.bas Benzonatate [Tessalon Perles] 100 mg PO Q8HR #30 capsule 05/16/20 Unknown Rx Prednisone [predniSONE 10 mg 10 mg PO .TAPER #21 tab.ds.pk 05/16/20 Unknown Rx (6-Day Pack, 21 Tabs)] ED Physical Exam - General Limitations: No Limitations General appearance: alert, in no apparent distress - Head Head exam: Present: atraumatic, normocephalic - Eye Eye exam: Present: normal appearance - ENT ENT exam: Present: mucous membranes moist - Neck Neck exam: Present: normal inspection, full ROM - Respiratory Respiratory exam: Present: chest wall tenderness (Right chest), other (Right breast normal appearance no rashes no erythematous nonedematous no drainage from the nipple area looks healthy.) - Back Exam Back exam: Present: normal inspection - Neurological Exam Neurological exam: Present: alert, oriented X3 - Psychiatric Psychiatric exam: Present: normal affect, normal mood - Skin Skin exam: Present: warm, dry, intact, normal color. Absent: rash ED Course Vital Signs 05/25/20 03:03 Temperature 98.5 F Pulse Rate 85 Respiratory 18 Rate Blood Pressure 134/80 O2 Sat by Pulse 96 Oximetry ED Medical Decision Making - Medical Decision Making 49-year-old -[place] female that is well-known to this provider. Presents to the emergency room for right breast pain for 3 days. Patient denies any nipple discharge she denies any rash swelling or redness. Patient states that the pain is intermittent and sharp. She reports that she has scheduled for a mammogram next week. Patient denies any fever chills no nausea no vomiting. 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 She can take Tylenol for pain management. Warm compresses. Critical care attestation.: If time is entered above; I have spent that time in minutes in the direct care of this critically ill patient, excluding procedure time. ED Disposition Clinical Impression: Right-sided chest wall pain, Breast pain, right Disposition: - TO HOME OR SELFCARE Is pt being admited?: No Does the pt Need Aspirin: No Condition: Stable Additional Instructions: Follow-up with your primary care provider and ANA[employer] DESIGN ARCHITECT provider. You can take Tylenol for pain management. Referrals: PRIMARY CARE,MD [Primary Care Provider] - 3-5 Days You are, ANALOG [employer] DESIGN ARCHITECT or primary care provider [Other] - 3-5 Days
[2020-05-25 10:00] VITALS: BP 150/99
== END 2020-05-25 09:59 | disposition home or self-care (01) ==
LOC: ED 02:53
DX: N64.4 Mastodynia (principal); R07.89 Other chest pain; K21.9 Gastro-esophageal reflux disease without esophagitis; J45.909 Unspecified asthma, uncomplicated; Z98.890 Other specified postprocedural states; Z98.51 Tubal ligation status; Z79.2 Long term (current) use of antibiotics; Z79.899 Other long term (current) drug therapy; Z88.0 Allergy status to penicillin; Z88.6 Allergy status to analgesic agent; Z88.8 Allergy status to other drugs, medicaments and biological substances
CPT/HCPCS: 99282

== ENCOUNTER 2020-07-10 20:59 | Emergency (ER) | payer MEDICARE ==
[2020-07-10] MEDS ORDERED: ALBUTEROL 2.5 MG/3 ML NEBU IH ONE ×3 (21:11→22:55)
[2020-07-10] MEDS ORDERED: IPRATROPIUM 0.02% NEBU 2.5 ML IH ONE ×3 (21:12→22:55)
[2020-07-10] MEDS ORDERED: MAGNESIUM SULFATE 2 GM/50 ML BAG IV ONE (21:40)
[2020-07-10] MEDS ORDERED: methylPREDNISolone Sod Succinate 125 MG/2 ML INJ IV ONE (21:40)
[2020-07-10] MEDS ORDERED: SODIUM CHLORIDE 0.9% 500 ML 500 ML IV ONE (21:40)
--- NOTE | 2020-07-10 21:45 | Emergency Department Report ---
ED General Adult HPI - General Chief complaint: Adult Asthma Stated complaint: ASTHMA/SILVIANO PUI?: No Time Seen by Provider: 07/10/20 21:23 Source: patient, RN notes reviewed, old records reviewed Mode of arrival: Ambulatory Limitations: No Limitations - History of Present Illness Initial comments: The patient was evaluated in the emergency department for symptoms described in the history of present illness. He/she was evaluated in the context of the global COVID-19 pandemic, which necessitated consideration that the patient m ight be at risk for infection with the virus that causes COVID-19. Institutional protocols and algorithms that pertain to the evaluation of patients at risk for COVID-19 are in a state of rapid change based on information released by regulatory bodies including the CDC and federal and state organizations. These policies and algorithms were followed during the patient's care in the emergency department. Please note that these policies, procedures and recommendations changed on a rapid basis. Patient is a 49-year-old female, whom I have evaluated in the past. She denies , oral contraceptive use and DVT, pulmonary embolism risk factors. She has a history of obesity, and reactive airway disease/asthma, is a frequent utilizer of this department for reactive airway disease exacerbation. She presents to the ER today with her typical complaint of cough, wheezing and shortness of breath, which started this morning. She cannot recall any specific inciting factor. She states compliance with her medications. She states she does not smoke anything. She states she is used a number of breathing treatments at home with minimal success. She endorses typical chest tightness, which is central, that does not radiate, without vomiting, diaphoresis, which is consistent with prior asthma exacerbations. She otherwise denies physical pain. -: Gradual, hour(s) Consistency: constant Improves with: medication, rest Worsens with: movement - Related Data Home Medications Medication Instructions Recorded Confirmed Last Taken AtorvaSTATin [Lipitor] 40 mg PO QHS 01/12/20 04/23/20 Unknown Levothyroxine [Synthroid] 25 mcg PO QDAY 02/24/20 04/23/20 Unknown Ascorbic Acid [Vitamin C] 04/23/20 Unknown Cinnamon 04/23/20 Unknown Ergocalciferol(Vitamin D2)(Nf) 04/23/20 Unknown [Vitamin D (Nf)] Fluticasone/Salmeterol [Advair 1 puff IH BID 04/23/20 04/23/20 Unknown Diskus 500-50 mcg] Vitamin E 04/23/20 Unknown Previous Rx's Medication Instructions Recorded Last Taken Type ALBUTEROL NEB's [Proventil 0.083% 2.5 mg IH Q6HRT PRN nebu 04/23/20 Unknown Rx NEBS] Diphenoxylate/Atropine [Lomotil] 1 tab PO Q6H PRN #14 tablet 04/23/20 Unknown Rx levoFLOXacin [Levaquin TAB] 500 mg PO Q24HR #7 tablet 04/23/20 Unknown Rx metroNIDAZOLE [Flagyl TAB] 500 mg PO Q12H #14 tablet 04/23/20 Unknown Rx Cetirizine HCl/Pseudoephedrine 1 each PO BID PRN #20 tab.er.12h 05/03/20 Unknown Rx [Zyrtec-D Tablet] ALBUTEROL NEB's [Proventil 0.083% 3 ml IH Q6H PRN 30 Days #75 ml 05/16/20 Unknown Rx NEBS] Benzonatate [Tessalon Perles] 100 mg PO Q8HR #30 capsule 05/16/20 Unknown Rx Prednisone [predniSONE 10 mg 10 mg PO .TAPER #21 tab.ds.pk 05/16/20 Unknown Rx (6-Day Pack, 21 Tabs)] Prednisone [predniSONE 10 mg 10 mg PO .TAPER #1 tab.ds.pk 06/14/20 Unknown Rx (6-Day Pack, 21 Tabs)] ALBUTEROL NEB's [Proventil 0.083% 2.5 mg IH TID PRN #1 box 06/24/20 Unknown Rx NEBS] Albuterol Sulfate [Proair 1 - 2 puff IH Q4HR PRN #1 06/24/20 Unknown Rx Digihaler] aer.pw.bas Sulfamethoxazole/Trimethoprim 1 each PO BID #20 tablet 06/24/20 Unknown Rx [Bactrim DS TAB] predniSONE [Deltasone] 60 mg PO QDAY #20 tab 06/24/20 Unknown Rx Albuterol Sulfate [Albuterol 0.63% 0.63 mg IH Q4HR PRN #2 ml 07/10/20 Unknown Rx NEBS] Albuterol Sulfate [Proair 90 mcg IH Q4HR PRN #2 aer.pow.ba 07/10/20 Unknown Rx Respiclick] Ipratropium (Nf) [Atrovent] 2 puff IH Q6HR PRN #1 inha 07/10/20 Unknown Rx Ipratropium [Atrovent NEB] 0.5 mg IH Q4HR #2 ml 07/10/20 Unknown Rx predniSONE [Deltasone] 40 mg PO QDAY #8 tab 07/10/20 Unknown Rx Allergies Allergy/AdvReac Type Severity Reaction Status Date / Time aspirin Allergy Anaphylaxis Verified 01/13/20 11:14 azithromycin [From Zithromax] Allergy Anaphylaxis Verified 01/12/20 11:49 doxycycline Allergy Rash Verified 08/31/19 16:04 ketorolac tromethamine Allergy Anaphylaxis Verified 08/31/19 16:04 [From Toradol] Latex, Natural Rubber Allergy Angioedema Verified 08/31/19 16:04 morphine Allergy Shortness Verified 08/31/19 16:04 of Breath NSAIDS (Non-Steroidal Allergy Anaphylaxis Verified 01/12/20 11:49 Anti-Inflamma Penicillins Allergy Hives Verified 01/12/20 11:49 ED Review of Systems ROS: Stated complaint: ASTHMA/SILVIANO Other details as noted in HPI Constitutional: denies: fever ENT: congestion Respiratory: see HPI, shortness of breath, SOB with exertion, SOB at rest, wheezing Cardiovascular: denies: syncope Gastrointestinal: denies: abdominal pain Musculoskeletal: denies: back pain Neurological: denies: weakness ED Past Medical Hx - Past Medical History Previous Medical History?: Yes Hx Hypertension: No Hx Heart Attack/AMI: No Hx Congestive Heart Failure: No Hx Diabetes: No Hx Deep Vein Thrombosis: No Hx Pulmonary Embolism: No Hx GERD: Yes Hx Liver Disease: No Hx Renal Disease: No Hx Sickle Cell Disease: No Hx Arthritis: No Hx Seizures: No Hx Kidney Stones: No Hx Asthma: Yes Hx COPD: No Hx Tuberculosis: No Hx Dementia: No Hx HIV: No Additional medical history: sinus problems. Prior Intubations x3. Obesity. hypothyroid - Surgical History Past Surgical History?: Yes Hx Coronary Stent: No Hx Open Heart Surgery: No Hx Pacemaker: No Hx Internal Defibrillator: No Hx Cholecystectomy: No Hx Appendectomy: No Hx Breast Surgery: No Additional Surgical History: x4, umbilical hernia repair, sinus surgeries, D&C. thyroid removal. tubligation - Social History Smoking Status: Never Smoker Substance Use Type: None - Medications Home Medications: Home Medications Medication Instructions Recorded Confirmed Last Taken Type AtorvaSTATin [Lipitor] 40 mg PO QHS 01/12/20 04/23/20 Unknown History Levothyroxine [Synthroid] 25 mcg PO QDAY 02/24/20 04/23/20 Unknown History ALBUTEROL NEB's [Proventil 0.083% 2.5 mg IH Q6HRT PRN nebu 04/23/20 Unknown Rx NEBS] Ascorbic Acid [Vitamin C] 04/23/20 Unknown History Cinnamon 04/23/20 Unknown History Diphenoxylate/Atropine [Lomotil] 1 tab PO Q6H PRN #14 tablet 04/23/20 Unknown Rx Ergocalciferol(Vitamin D2)(Nf) 04/23/20 Unknown History [Vitamin D (Nf)] Fluticasone/Salmeterol [Advair 1 puff IH BID 04/23/20 04/23/20 Unknown History Diskus 500-50 mcg] Vitamin E 04/23/20 Unknown History levoFLOXacin [Levaquin TAB] 500 mg PO Q24HR #7 tablet 04/23/20 Unknown Rx metroNIDAZOLE [Flagyl TAB] 500 mg PO Q12H #14 tablet 04/23/20 Unknown Rx Cetirizine HCl/Pseudoephedrine 1 each PO BID PRN #20 tab.er.12h 05/03/20 Unknown Rx [Zyrtec-D Tablet] ALBUTEROL NEB's [Proventil 0.083% 3 ml IH Q6H PRN 30 Days #75 ml 05/16/20 Unknown Rx NEBS] Benzonatate [Tessalon Perles] 100 mg PO Q8HR #30 capsule 05/16/20 Unknown Rx Prednisone [predniSONE 10 mg 10 mg PO .TAPER #21 tab.ds.pk 05/16/20 Unknown Rx (6-Day Pack, 21 Tabs)] Prednisone [predniSONE 10 mg 10 mg PO .TAPER #1 tab.ds.pk 06/14/20 Unknown Rx (6-Day Pack, 21 Tabs)] ALBUTEROL NEB's [Proventil 0.083% 2.5 mg IH TID PRN #1 box 06/24/20 Unknown Rx NEBS] Albuterol Sulfate [Proair 1 - 2 puff IH Q4HR PRN #1 06/24/20 Unknown Rx Digihaler] aer.pw.bas Sulfamethoxazole/Trimethoprim 1 each PO BID #20 tablet 06/24/20 Unknown Rx [Bactrim DS TAB] predniSONE [Deltasone] 60 mg PO QDAY #20 tab 06/24/20 Unknown Rx Albuterol Sulfate [Albuterol 0.63% 0.63 mg IH Q4HR PRN #2 ml 07/10/20 Unknown Rx NEBS] Albuterol Sulfate [Proair 90 mcg IH Q4HR PRN #2 aer.pow.ba 07/10/20 Unknown Rx Respiclick] Ipratropium (Nf) [Atrovent] 2 puff IH Q6HR PRN #1 inha 07/10/20 Unknown Rx Ipratropium [Atrovent NEB] 0.5 mg IH Q4HR #2 ml 07/10/20 Unknown Rx predniSONE [Deltasone] 40 mg PO QDAY #8 tab 07/10/20 Unknown Rx ED Physical Exam - General Limitations: No Limitations General appearance: alert, obese - Head Head exam: Present: atraumatic, normocephalic - Eye Eye exam: Present: normal appearance, EOMI. Absent: nystagmus - ENT ENT exam: Present: normal exam, normal orophraynx, mucous membranes moist, normal external ear exam - Neck Neck exam: Present: normal inspection, full ROM. Absent: tenderness, meningismus - Respiratory Respiratory exam: Present: wheezes, rhonchi. Absent: respiratory distress, stridor - Cardiovascular Cardiovascular Exam: Present: normal rhythm, tachycardia, normal heart sounds. Absent: systolic murmur, diastolic murmur, rubs, gallop - GI/Abdominal GI/Abdominal exam: Present: soft. Absent: distended, tenderness, guarding, rebound, rigid, pulsatile mass - Extremities Exam Extremities exam: Present: normal inspection, full ROM, other (2+ pulses noted in the bilateral upper and lower extremities. There is no palpable cord. negative Homans sign. Muscular compartments are soft. The pelvis is stable.). Absent: pedal edema, calf tenderness - Back Exam Back exam: Present: normal inspection, full ROM. Absent: tenderness, CVA tenderness (R), CVA tenderness (L), paraspinal tenderness, vertebral tenderness - Neurological Exam Neurological exam: Present: alert, oriented X3, other (No facial droop. Tongue midline. Extraocular movements intact bilaterally. Facial sensation intact to light touch in V1, V2, V3 distribution bilaterally. 5 and a 5 strength in 4 e xtremities. Sensation intact to light touch in 4 extremities.). Absent: motor sensory deficit - Psychiatric Psychiatric exam: Present: normal affect, normal mood - Skin Skin exam: Present: warm, dry, intact, normal color. Absent: rash ED Course Vital Signs 07/10/20 07/10/20 07/10/20 21:06 21:23 23:05 Temperature 98.1 F Pulse Rate 113 H Pulse Rate [ 89 105 H Bilateral Throughout] Respiratory 15 Rate Respiratory 20 20 Rate [Bilateral Throughout] Blood Pressure 123/76 O2 Sat by Pulse 94 Oximetry - Reevaluation(s) Reevaluation #1: 07/10/20 21:45 Differential diagnosis, including but not limited to: Bronchitis, asthma exacerbation, reactive airways disease Assessment and plan: 49-year-old female, with known history of asthma/reactive airway disease, who endorses no DVT or pulmonary embolism risk factors, who is low risk by Jere and fahad, presenting with probable asthma exacerbation. On my initial assessment, she is afebrile with reassuring vital signs, saturat ing 96%, receiving albuterol, Atrovent, mild tachycardia reviewed and appreciated, likely secondary to beta agonist therapy. We will give albuterol, Atrovent, steroids, magnesium, and IV fluids. I did advise the patient that she may benefit from subcutaneous epinephrine, as a have in the past with this particular patient, however, she is declining at this time. Patient alert, oriented, clinically sober, and exhibits decision- making capacity. Of note, while I am evaluating the patient, she has a child with her, they are playing with her cell phone, she appears to be quite engaged with the child, and she does not appear to be in any significant distress. Reevaluation #2: 07/10/20 22:55 Heart rate 99 bpm. Saturating at 99 to 100% on room air. Noted to be drinking juice without difficulty. Sitting comfortably in her stretcher, and in no acute distress. States that she feels somewhat improved. Lung sounds reassessed, still wheezing. Wheezing is improved when compared to prior examination. Patient still declining epinephrine. Repeat albuterol, Atrovent ordered. Reevaluation #3: 07/10/20 23:34 Patient receiving breathing treatment, sleeping comfortably on her stretcher, in the left lateral position, and in no acute distress, saturating 100% on room air Reevaluation #4: 07/10/20 23:43 Patient continues to rest comfortably. Wheezing markedly improved. Vital signs are stable. Suitable for discharge with a trial of outpatient management. ED Medical Decision Making - Lab Data Vital Signs 07/10/20 07/10/20 21:06 21:23 Temperature 98.1 F Pulse Rate 113 H Pulse Rate [ 89 Bilateral Throughout] Respiratory 15 Rate Respiratory 20 Rate [Bilateral Throughout] Blood Pressure 123/76 O2 Sat by Pulse 94 Oximetry Critical care attestation.: If time is entered above; I have spent that time in minutes in the direct care of this critically ill patient, excluding procedure time. ED Disposition Clinical Impression: Asthma exacerbation Qualifiers: Asthma severity: moderate Asthma persistence: unspecified Qualified Code(s): J45.901 - Unspecified asthma with (acute) exacerbation Disposition: DC-01 TO HOME OR SELFCARE Is pt being admited?: No Does the pt Need Aspirin: No Condition: Stable Instructions: Asthma (ED) Additional Instructions: Avoid consumption of tobacco, alcohol and smoke products. Patient may take [id number] acetaminophen as needed for body pain. Take the breathing treatments and steroids as directed. Follow-up with your primary care doctor or supply chain buyer within the next 3 to 5 days. Please return to the emergency room right away with new pain, worsened pain, migration of pain, projectile vomiting, change in mental status, confusion, inability to tolerate liquid feeds, new, worsened or different symptoms not present on the initial emergency room evaluation Referrals: PARKER BROCK MD [Staff Physician] - 3-5 Days
[2020-07-11 00:13] VITALS: BP 126/78
== END 2020-07-11 00:10 | disposition home or self-care (01) ==
LOC: ED 20:59
DX: J45.901 Unspecified asthma with (acute) exacerbation (principal); K21.9 Gastro-esophageal reflux disease without esophagitis; Z98.890 Other specified postprocedural states; Z98.51 Tubal ligation status; Z79.2 Long term (current) use of antibiotics; Z79.899 Other long term (current) drug therapy; Z88.1 Allergy status to other antibiotic agents; Z88.8 Allergy status to other drugs, medicaments and biological substances
CPT/HCPCS: 94640; 94644; 96365; 96375; 99284; J2930; J3475; J7040

== ENCOUNTER 2020-07-18 19:46 | Emergency (ER) | payer MEDICARE ==
[2020-07-18] MEDS ORDERED: IPRATROPIUM/ALBUTEROL SULFATE 3 ML AMPUL.NEB IH ONE ×2 (20:02→20:28)
[2020-07-18] MEDS ORDERED: methylPREDNISolone Sod Succinate 125 MG/2 ML INJ IV ONE (20:28)
[2020-07-18] MEDS ORDERED: MAGNESIUM SULFATE 2 GM/50 ML BAG IV ONE (20:28)
[2020-07-18 20:34] LABS: Basophils % (Auto) 0.4 % (0.0-1.8); Eosinophils # (Auto) 0.8 K/mm3 (0.0-0.4); Eosinophils % (Auto) 8.8 % (0.0-4.3); Hematocrit 40.4 % (30.3-42.9); Hemoglobin 13.5 gm/dl (10.1-14.3); Lymphocytes # (Auto) 2.2 K/mm3 (1.2-5.4); Lymphocytes % (Auto) 24.1 % (13.4-35.0); Mean Corpuscular HGB Conc 33 % (30-34); Mean Corpuscular Volume 83 fl (79-97); Monocytes % (Auto) 10.3 % (0.0-7.3); Platelet Count 233 K/mm3 (140-440); Red Blood Count 4.84 M/mm3 (3.65-5.03); Red Cell Distribution Width 15.2 % (13.2-15.2)
--- NOTE | 2020-07-18 20:34 | Emergency Department Report ---
HPI - General Chief Complaint: Dyspnea/Respdistress Time Seen by Provider: 07/18/20 20:21 - HPI HPI: This is a 49-year-old female presents to the emergency department from home with complaint of a 3-day history of shortness of breath, dry cough and wheezing. She has a history of asthma that has required multiple admissions and intubations in the past. She also has a past medical history of hypothyroidism status post thyroidectomy, sinus problems and obesity. Patient follows with Dr. Webster for pulmonology. She denies any fever, chest pain, lower extremity swelling, nausea, vomiting or diaphoresis. Patient has been taking her home medications, including albuterol and ipratropium nebulizer treatments, without much relief. She denies any tobacco or illicit drug use. No recent travel or sick contacts at home. The patient was seen here about 10 days ago for similar symptoms but was able to be discharged home at that time. ED Past Medical Hx - Past Medical History Previous Medical History?: Yes Hx Hypertension: No Hx Heart Attack/AMI: No Hx Congestive Heart Failure: No Hx Diabetes: No Hx Deep Vein Thrombosis: No Hx Pulmonary Embolism: No Hx GERD: Yes Hx Liver Disease: No Hx Renal Disease: No Hx Sickle Cell Disease: No Hx Arthritis: No Hx Seizures: No Hx Kidney Stones: No Hx Asthma: Yes Hx COPD: No Hx Tuberculosis: No Hx Dementia: No Hx HIV: No Additional medical history: sinus problems. Prior Intubations x3. Obesity. hypothyroid - Surgical History Past Surgical History?: Yes Hx Coronary Stent: No Hx Open Heart Surgery: No Hx Pacemaker: No Hx Internal Defibrillator: No Hx Cholecystectomy: No Hx Appendectomy: No Hx Breast Surgery: No Additional Surgical History: x4, umbilical hernia repair, sinus surgeries, D&C. thyroid removal. tubligation - Social History Smoking Status: Never Smoker Substance Use Type: None - Medications Home Medications: Home Medications Medication Instructions Recorded Confirmed Last Taken Type AtorvaSTATin [Lipitor] 40 mg PO QHS 01/12/20 04/23/20 Unknown History Levothyroxine [Synthroid] 25 mcg PO QDAY 02/24/20 04/23/20 Unknown History Ascorbic Acid [Vitamin C] 04/23/20 Unknown History Cinnamon 04/23/20 Unknown History Diphenoxylate/Atropine [Lomotil] 1 tab PO Q6H PRN #14 tablet 04/23/20 Unknown Rx Ergocalciferol(Vitamin D2)(Nf) 04/23/20 Unknown History [Vitamin D (Nf)] Fluticasone/Salmeterol [Advair 1 puff IH BID 04/23/20 04/23/20 Unknown History Diskus 500-50 mcg] Vitamin E 04/23/20 Unknown History levoFLOXacin [Levaquin TAB] 500 mg PO Q24HR #7 tablet 04/23/20 Unknown Rx metroNIDAZOLE [Flagyl TAB] 500 mg PO Q12H #14 tablet 04/23/20 Unknown Rx Cetirizine HCl/Pseudoephedrine 1 each PO BID PRN #20 tab.er.12h 05/03/20 Unknown Rx [Zyrtec-D Tablet] ALBUTEROL NEB's [Proventil 0.083% 3 ml IH Q6H PRN 30 Days #75 ml 05/16/20 Unknown Rx NEBS] Benzonatate [Tessalon Perles] 100 mg PO Q8HR #30 capsule 05/16/20 Unknown Rx Prednisone [predniSONE 10 mg 10 mg PO .TAPER #21 tab.ds.pk 05/16/20 Unknown Rx (6-Day Pack, 21 Tabs)] Prednisone [predniSONE 10 mg 10 mg PO .TAPER #1 tab.ds.pk 06/14/20 Unknown Rx (6-Day Pack, 21 Tabs)] ALBUTEROL NEB's [Proventil 0.083% 2.5 mg IH TID PRN #1 box 06/24/20 Unknown Rx NEBS] Albuterol Sulfate [Proair 1 - 2 puff IH Q4HR PRN #1 06/24/20 Unknown Rx Digihaler] aer.pw.bas Sulfamethoxazole/Trimethoprim 1 each PO BID #20 tablet 06/24/20 Unknown Rx [Bactrim DS TAB] predniSONE [Deltasone] 60 mg PO QDAY #20 tab 06/24/20 Unknown Rx Albuterol Sulfate [Albuterol 0.63% 0.63 mg IH Q4HR PRN #2 ml 07/10/20 Unknown Rx NEBS] Albuterol Sulfate [Proair 90 mcg IH Q4HR PRN #2 aer.pow.ba 07/10/20 Unknown Rx Respiclick] Ipratropium (Nf) [Atrovent] 2 puff IH Q6HR PRN #1 inha 07/10/20 Unknown Rx Ipratropium [Atrovent NEB] 0.5 mg IH Q4HR #2 ml 07/10/20 Unknown Rx ALBUTEROL NEB's [Proventil 0.083% 2.5 mg IH Q6HRT PRN #1 box 07/18/20 Unknown Rx NEBS] predniSONE [Deltasone] 20 mg PO BID #8 tab 07/18/20 Unknown Rx ED Review of Systems ROS: Stated complaint: ASTHMA/SILVIANO Other details as noted in HPI Comment: All other systems reviewed and negative Constitutional: denies: chills, fever Eyes: denies: eye pain, vision change ENT: denies: ear pain, throat pain Respiratory: cough, shortness of breath, wheezing Cardiovascular: denies: chest pain, edema Gastrointestinal: denies: abdominal pain, vomiting Genitourinary: denies: dysuria, discharge Musculoskeletal: denies: back pain, arthralgia Skin: denies: rash, lesions Neurological: denies: headache, weakness Physical Exam - Physical Exam Vital Signs: Vital Signs 07/18/20 19:55 Temperature 98.8 F Pulse Rate 103 H Respiratory 20 Rate Blood Pressure 127/82 O2 Sat by Pulse 92 Oximetry Physical Exam: GENERAL: The patient is well-developed well-nourished. HENT: Normocephalic. Atraumatic. Patient has moist mucous membranes. EYES: Extraocular motions are intact. NECK: Supple. Trachea is midline. CHEST/LUNGS: Moderate wheezing throughout the chest. No cough heard during examination. No tachypnea or accessory muscle use. There is no respiratory distress noted. HEART/CARDIOVASCULAR: Regular. There is no tachycardia. There is no murmur. ABDOMEN: Abdomen is soft, nontender. Patient has normal bowel sounds. SKIN: Skin is warm and dry. NEURO: The patient is awake, alert, and oriented. The patient is cooperative. The patient has no focal neurologic deficits. Normal speech. MUSCULOSKELETAL: There is no tenderness or deformity. There is no limitation range of motion. ED Course Vital Signs 07/18/20 19:55 Temperature 98.8 F Pulse Rate 103 H Respiratory 20 Rate Blood Pressure 127/82 O2 Sat by Pulse 92 Oximetry ED Medical Decision Making - Lab Data Result diagrams: 07/18/20 20:11 07/18/20 20:11 - EKG Data -: EKG Interpreted by Me EKG shows normal: sinus rhythm, axis, intervals, QRS complexes, ST-T waves Rate: tachycardia (102 bpm) - EKG Data When compared to previous EKG there are: no significant change Interpretation: normal EKG, unchanged when compared t (04/07/20) - Radiology Data Radiology results: image reviewed interpreted by me: Chest x-ray does not show any acute process. There are no pleural effusions, obvious pneumonia and there is no pneumothorax. No significant cardiomegaly. - Medical Decision Making This patient presents to the emergency department with a 3-day history of shortness of breath, wheezing, coughing, that appears consistent with her normal asthma exacerbation. On examination she has moderate wheezing throughout the chest but there is no tachypnea or accessory muscle use and the patient does not appear in any respiratory or acute distress. Her vital signs have been reassuring throughout her ED course including being afebrile and no hypoxia. An EKG was performed through triage that did not show any morphology consistent with ST elevation myocardial infarction or any significant dysrhythmia. Chest x-ray did not show any pneumonia, pleural effusions, pneumothorax, focal consolidation, or any other acute process. The patient's labs have been unremarkable including CBC, metabolic panel and a negative troponin. The patient was given Solu-Medrol, magnesium and 2 different breathing treatments with albuterol and ipratropium. She was reevaluated multiple times over multiple hours and is feeling greatly improved. The bronchospasm has gone down to a very mild expiratory wheeze only. The patient says that she is feeling greatly improved. She has good outpatient follow-up with pulmonology. She will be discharged home with a prescription for a course of steroids and a refill of her albuterol nebulizer treatments. She will return to the emergency department with any worsening of her symptoms or with any acute distress. Critical Care Time: No Critical care attestation.: If time is entered above; I have spent that time in minutes in the direct care of this critically ill patient, excluding procedure time. ED Disposition Clinical Impression: Asthma exacerbation Qualifiers: Asthma severity: unspecified severity Asthma persistence: unspecified Qualified Code(s): J45.901 - Unspecified asthma with (acute) exacerbation Disposition: TO HOME OR SELFCARE Is pt being admited?: No Condition: Stable Instructions: Asthma (ED) Additional Instructions: Please follow-up with your primary care physician and manager ethics in the next few days. Take the medications as prescribed. Return to the emergency department with any worsening of your symptoms, new or concerning symptoms that were not addressed during this emergency department visit, with any acute distress. Prescriptions: predniSONE [Deltasone] 20 mg PO BID #8 tab ALBUTEROL NEB's [Proventil 0.083% NEBS] 2.5 mg IH Q6HRT PRN #1 box PRN Reason: Shortness Of Breath Referrals: PRIMARY CAREMD [Primary Care Provider] - 2-3 Days PARKER BROCK MD [Staff Physician] - 2-3 Days Time of Disposition: 23:11
[2020-07-18 20:49] LABS: BUN/Creatinine Ratio 10; Blood Urea Nitrogen 9 mg/dL (7-17); Calcium 9.4 mg/dL (8.4-10.2); Hemolysis Index 37
[2020-07-18] MEDS ORDERED: LIDOCAINE VISCOUS 2% 15 ML ORAL LIQD PO ONE (21:09)
[2020-07-18] MEDS ORDERED: ALUM-MAG HYDROXIDE-SIMETHICONE 200-200-20MG/5ML ORAL LIQD 30 ML PO ONE (21:09)
[2020-07-18 21:14] VITALS: BP 117/66
--- NOTE | 2020-07-18 21:38 | XRay Report ---
CHEST 1 VIEW 07/18/2020 8:51 PM INDICATION / CLINICAL INFORMATION: Chest Pain. COMPARISON: 06/24/2020. FINDINGS: SUPPORT DEVICES: None. HEART / MEDIASTINUM: No significant abnormality. LUNGS / PLEURA: No significant pulmonary or pleural abnormality. No pneumothorax. ADDITIONAL FINDINGS: No significant additional findings. IMPRESSION: No acute cardiopulmonary abnormality. No significant change from 06/24/2020. Signer Name: Darrick Wilkerson MD Signed: 07/18/2020 9:33 PM Workstation Name: [id number]
[2020-07-18] MEDS ORDERED: ALBUTEROL 2.5 MG/3 ML NEBU IH ONE (21:54)
== END 2020-07-18 23:28 | disposition home or self-care (01) ==
LOC: ED 19:46
DX: J45.901 Unspecified asthma with (acute) exacerbation (principal); K21.9 Gastro-esophageal reflux disease without esophagitis; E03.9 Hypothyroidism, unspecified; E66.9 Obesity, unspecified; Z68.37 Body mass index [BMI] 37.0-37.9, adult; Z98.51 Tubal ligation status; Z79.899 Other long term (current) drug therapy; Z88.6 Allergy status to analgesic agent; Z88.8 Allergy status to other drugs, medicaments and biological substances; Z98.890 Other specified postprocedural states
CPT/HCPCS: 36415; 71045; 80048; 84484; 84703; 85025; 93005; 94640; 96365; 96375; 99284; J2930; J3475; 94644

== ENCOUNTER 2020-08-22 15:47 | Emergency (ER) | payer MEDICARE ==
[2020-08-22] MEDS ORDERED: IPRATROPIUM/ALBUTEROL SULFATE 3 ML AMPUL.NEB IH ONE ×2 (15:48→15:54)
--- NOTE | 2020-08-22 16:33 | Emergency Department Report ---
Blank Doc - Documentation Documentation: 50-year-old female past medical history of asthma, [facility] of exertional dyspnea, chest pressure with exertion associated with some wheezing and significant throat irritation. Has been taking her thyroid medication as prescribed but does not know why she is having issues with talking and swallowing and breathing. She has to sleep in upright position due to orthopnea This initial assessment/diagnostic orders/clinical plan/treatment(s) is/are subject to change based on patients health status, clinical progression and re- assessment by fellow clinical providers in the ED. Further treatment and workup at subsequent clinical providers discretion. Patient/guardian urged not to elope from the ED as their condition may be serious if not clinically assessed and managed. Initial orders include: Shortness of breath/chest pain evaluation involving a chest x-ray as well
--- NOTE | 2020-08-22 17:05 | XRay Report ---
CHEST 2 VIEWS INDICATION / CLINICAL INFORMATION: Asthma. COMPARISON: 07/18/2020 FINDINGS: SUPPORT DEVICES: None. HEART / MEDIASTINUM: No significant abnormality. LUNGS / PLEURA: No significant pulmonary or pleural abnormality. No pneumothorax. ADDITIONAL FINDINGS: No significant additional findings. IMPRESSION: No significant abnormality or interval change from 07/18/2020 Signer Name: Neftaly Wilkerson MD FACR Signed: 08/22/2020 5:01 PM Workstation Name: [id number]
[2020-08-22 17:53] LABS: Basophils % (Auto) 0.4 % (0.0-1.8); Eosinophils # (Auto) 0.3 K/mm3 (0.0-0.4); Eosinophils % (Auto) 3.3 % (0.0-4.3); Hematocrit 41.8 % (30.3-42.9); Hemoglobin 13.5 gm/dl (10.1-14.3); Lymphocytes # (Auto) 1.5 K/mm3 (1.2-5.4); Lymphocytes % (Auto) 14.9 % (13.4-35.0); Mean Corpuscular HGB Conc 32 % (30-34); Mean Corpuscular Volume 84 fl (79-97); Monocytes # (Auto) 0.7 K/mm3 (0.0-0.8); Monocytes % (Auto) 6.4 % (0.0-7.3); Platelet Count 236 K/mm3 (140-440); Red Blood Count 4.95 M/mm3 (3.65-5.03); Red Cell Distribution Width 15.5 % (13.2-15.2)
[2020-08-22 18:37] LABS: Alanine Aminotransferase 24 units/L (7-56); Albumin 4.1 g/dL (3.9-5); BUN/Creatinine Ratio 16; Blood Urea Nitrogen 13 mg/dL (7-17); Calcium 9.2 mg/dL (8.4-10.2)
[2020-08-22] MEDS ORDERED: SODIUM CHLORIDE 0.9% 500 ML 500 ML IV ONE (22:38)
[2020-08-22] MEDS ORDERED: IPRATROPIUM 0.02% NEBU 2.5 ML IH ONE (22:38)
[2020-08-22] MEDS ORDERED: methylPREDNISolone Sod Succinate 125 MG/2 ML INJ IV ONE (22:38)
[2020-08-22] MEDS ORDERED: ACETAMINOPHEN 325 MG TAB PO ONE (22:38)
[2020-08-22] MEDS ORDERED: MAGNESIUM SULFATE 2 GM/50 ML BAG IV ONE (22:38)
[2020-08-22] MEDS ORDERED: ALBUTEROL 2.5 MG/3 ML NEBU IH ONE (22:38)
--- NOTE | 2020-08-22 22:45 | Emergency Department Report ---
ED General Adult HPI - General Chief complaint: Adult Asthma Stated complaint: ASTHMA PUI?: No Time Seen by Provider: 08/22/20 22:27 Source: patient, RN notes reviewed, old records reviewed Mode of arrival: Ambulatory Limitations: No Limitations, Physical Limitation - History of Present Illness Initial comments: The patient was evaluated in the emergency department for symptoms described in the history of present illness. He/she was evaluated in the context of the global COVID-19 pandemic, which necessitated consideration that the patient might be at risk for infection with the virus that causes COVID-19. Institutional protocols and algorithms that pertain to the evaluation of patients at risk for COVID-19 are in a state of rapid change based on information released by regulatory bodies including the CDC and federal and state organizations. These policies and algorithms were followed during the patient's care in the emergency department. Please note that these policies, procedures and recommendations changed on a rapid basis. Pulmonology: Dr. Dickerson Patient is a 50-year-old female whom I evaluated in the past. She has a history of obesity, asthma, multiple ER evaluations for asthma, prior hospitalizations for asthma, at least one lifetime intubation, and probable hypothyroidism. The patient presents to the ER today with a complaint of cough, wheezing, shortness of breath, clear nasal congestion and mucus production. Symptoms have been going on for the past 3 to 4 days. Her symptoms are const ant, worse with physical exertion they decreased with rest. The patient complains of total body pain. She denies fever, loss of taste, loss of smell. She denies nausea, vomiting, diarrhea, urinary symptoms, exposure to Covid, , and recent or delivery within the past 6 weeks. The patient endorses sinus pressure, nasal congestion. To me, she makes no complaint of having difficulty while sleeping at night. To me, she makes no complaint of irregular thyroid medication, or thyroid issues. -: Gradual, days(s) Consistency: constant Improves with: rest Worsens with: movement - Related Data Home Medications Medication Instructions Recorded Confirmed Last Taken AtorvaSTATin [Lipitor] 40 mg PO QHS 01/12/20 04/23/20 Unknown Levothyroxine [Synthroid] 25 mcg PO QDAY 02/24/20 04/23/20 Unknown Ascorbic Acid [Vitamin C] 04/23/20 Unknown Cinnamon 04/23/20 Unknown Ergocalciferol(Vitamin D2)(Nf) 04/23/20 Unknown [Vitamin D (Nf)] Fluticasone/Salmeterol [Advair 1 puff IH BID 04/23/20 04/23/20 Unknown Diskus 500-50 mcg] Vitamin E 04/23/20 Unknown Previous Rx's Medication Instructions Recorded Last Taken Type Diphenoxylate/Atropine [Lomotil] 1 tab PO Q6H PRN #14 tablet 04/23/20 Unknown Rx levoFLOXacin [Levaquin TAB] 500 mg PO Q24HR #7 tablet 04/23/20 Unknown Rx metroNIDAZOLE [Flagyl TAB] 500 mg PO Q12H #14 tablet 04/23/20 Unknown Rx Cetirizine HCl/Pseudoephedrine 1 each PO BID PRN #20 tab.er.12h 05/03/20 Unknown Rx [Zyrtec-D Tablet] ALBUTEROL NEB's [Proventil 0.083% 3 ml IH Q6H PRN 30 Days #75 ml 05/16/20 Unknown Rx NEBS] Benzonatate [Tessalon Perles] 100 mg PO Q8HR #30 capsule 05/16/20 Unknown Rx Prednisone [predniSONE 10 mg 10 mg PO .TAPER #21 tab.ds.pk 05/16/20 Unknown Rx (6-Day Pack, 21 Tabs)] Prednisone [predniSONE 10 mg 10 mg PO .TAPER #1 tab.ds.pk 06/14/20 Unknown Rx (6-Day Pack, 21 Tabs)] ALBUTEROL NEB's [Proventil 0.083% 2.5 mg IH TID PRN #1 box 06/24/20 Unknown Rx NEBS] Albuterol Sulfate [Proair 1 - 2 puff IH Q4HR PRN #1 06/24/20 Unknown Rx Digihaler] aer.pw.bas Sulfamethoxazole/Trimethoprim 1 each PO BID #20 tablet 06/24/20 Unknown Rx [Bactrim DS TAB] ALBUTEROL NEB's [Proventil 0.083% 2.5 mg IH Q6HRT PRN #1 box 07/18/20 Unknown Rx NEBS] predniSONE [Deltasone] 20 mg PO BID #8 tab 07/18/20 Unknown Rx Albuterol Sulfate [Albuterol 0.63% 0.63 mg IH Q4HR PRN #2 ml 08/23/20 Unknown Rx NEBS] Albuterol Sulfate [Proair 90 mcg IH Q4HR PRN #2 aer.pow.ba 08/23/20 Unknown Rx Respiclick] Ipratropium (Nf) [Atrovent HFA 2 puff IH Q6HR PRN #1 inha 08/23/20 Unknown Rx 17MCG/PUFF] Ipratropium [Atrovent NEB] 0.5 mg IH Q4HR #2 ml 08/23/20 Unknown Rx predniSONE [Deltasone] 40 mg PO QDAY #10 tab 08/23/20 Unknown Rx Allergies Allergy/AdvReac Type Severity Reaction Status Date / Time aspirin Allergy Anaphylaxis Verified 01/13/20 11:14 azithromycin [From Zithromax] Allergy Anaphylaxis Verified 01/12/20 11:49 doxycycline Allergy Rash Verified 08/31/19 16:04 ketorolac tromethamine Allergy Anaphylaxis Verified 08/31/19 16:04 [From Toradol] Latex, Natural Rubber Allergy Angioedema Verified 08/31/19 16:04 morphine Allergy Shortness Verified 08/31/19 16:04 of Breath NSAIDS (Non-Steroidal Allergy Anaphylaxis Verified 01/12/20 11:49 Anti-Inflamma Penicillins Allergy Hives Verified 01/12/20 11:49 ED Review of Systems ROS: Stated complaint: ASTHMA Other details as noted in HPI Constitutional: malaise, weakness Eyes: denies: eye discharge ENT: congestion Respiratory: cough, shortness of breath, SOB with exertion, SOB at rest, wheezing Cardiovascular: dyspnea on exertion Gastrointestinal: denies: abdominal pain Genitourinary: denies: dysuria Musculoskeletal: arthralgia, myalgia Neurological: weakness ED Past Medical Hx - Past Medical History Previous Medical History?: Yes Hx Hypertension: No Hx Heart Attack/AMI: No Hx Congestive Heart Failure: No Hx Diabetes: No Hx Deep Vein Thrombosis: No Hx Pulmonary Embolism: No Hx GERD: Yes Hx Liver Disease: No Hx Renal Disease: No Hx Sickle Cell Disease: No Hx Arthritis: No Hx Seizures: No Hx Kidney Stones: No Hx Asthma: Yes Hx COPD: No Hx Tuberculosis: No Hx Dementia: No Hx HIV: No Additional medical history: sinus problems. Prior Intubations x3. Obesity. hypothyroid - Surgical History Past Surgical History?: Yes Hx Coronary Stent: No Hx Open Heart Surgery: No Hx Pacemaker: No Hx Internal Defibrillator: No Hx Cholecystectomy: No Hx Appendectomy: No Hx Breast Surgery: No Additional Surgical History: x4, umbilical hernia repair, sinus surgeries, D&C. thyroid removal. tubligation - Social History Smoking Status: Never Smoker Substance Use Type: None - Medications Home Medications: Home Medications Medication Instructions Recorded Confirmed Last Taken Type AtorvaSTATin [Lipitor] 40 mg PO QHS 01/12/20 04/23/20 Unknown History Levothyroxine [Synthroid] 25 mcg PO QDAY 02/24/20 04/23/20 Unknown History Ascorbic Acid [Vitamin C] 04/23/20 Unknown History Cinnamon 04/23/20 Unknown History Diphenoxylate/Atropine [Lomotil] 1 tab PO Q6H PRN #14 tablet 04/23/20 Unknown Rx Ergocalciferol(Vitamin D2)(Nf) 04/23/20 Unknown History [Vitamin D (Nf)] Fluticasone/Salmeterol [Advair 1 puff IH BID 04/23/20 04/23/20 Unknown History Diskus 500-50 mcg] Vitamin E 04/23/20 Unknown History levoFLOXacin [Levaquin TAB] 500 mg PO Q24HR #7 tablet 04/23/20 Unknown Rx metroNIDAZOLE [Flagyl TAB] 500 mg PO Q12H #14 tablet 04/23/20 Unknown Rx Cetirizine HCl/Pseudoephedrine 1 each PO BID PRN #20 tab.er.12h 05/03/20 Unknown Rx [Zyrtec-D Tablet] ALBUTEROL NEB's [Proventil 0.083% 3 ml IH Q6H PRN 30 Days #75 ml 05/16/20 Unknown Rx NEBS] Benzonatate [Tessalon Perles] 100 mg PO Q8HR #30 capsule 05/16/20 Unknown Rx Prednisone [predniSONE 10 mg 10 mg PO .TAPER #21 tab.ds.pk 05/16/20 Unknown Rx (6-Day Pack, 21 Tabs)] Prednisone [predniSONE 10 mg 10 mg PO .TAPER #1 tab.ds.pk 06/14/20 Unknown Rx (6-Day Pack, 21 Tabs)] ALBUTEROL NEB's [Proventil 0.083% 2.5 mg IH TID PRN #1 box 06/24/20 Unknown Rx NEBS] Albuterol Sulfate [Proair 1 - 2 puff IH Q4HR PRN #1 06/24/20 Unknown Rx Digihaler] aer.pw.bas Sulfamethoxazole/Trimethoprim 1 each PO BID #20 tablet 06/24/20 Unknown Rx [Bactrim DS TAB] ALBUTEROL NEB's [Proventil 0.083% 2.5 mg IH Q6HRT PRN #1 box 07/18/20 Unknown Rx NEBS] predniSONE [Deltasone] 20 mg PO BID #8 tab 07/18/20 Unknown Rx Albuterol Sulfate [Albuterol 0.63% 0.63 mg IH Q4HR PRN #2 ml 08/23/20 Unknown Rx NEBS] Albuterol Sulfate [Proair 90 mcg IH Q4HR PRN #2 aer.pow.ba 08/23/20 Unknown Rx Respiclick] Ipratropium (Nf) [Atrovent HFA 2 puff IH Q6HR PRN #1 inha 08/23/20 Unknown Rx 17MCG/PUFF] Ipratropium [Atrovent NEB] 0.5 mg IH Q4HR #2 ml 08/23/20 Unknown Rx predniSONE [Deltasone] 40 mg PO QDAY #10 tab 08/23/20 Unknown Rx ED Physical Exam - General Limitations: Physical Limitation General appearance: alert, in no apparent distress, anxious, in distress - Head Head exam: Present: atraumatic, normocephalic - Eye Eye exam: Present: normal appearance, EOMI. Absent: nystagmus - ENT ENT exam: Present: normal exam, normal orophraynx, mucous membranes moist, normal external ear exam, other (There is no stridor or dysphonia. The patient is speaking in full sentences.) - Neck Neck exam: Present: normal inspection, full ROM. Absent: tenderness, meningismus - Respiratory Respiratory exam: Present: respiratory distress, wheezes, rhonchi, accessory muscle use. Absent: stridor - Cardiovascular Cardiovascular Exam: Present: regular rate, normal rhythm, normal heart sounds. Absent: bradycardia, tachycardia, irregular rhythm, systolic murmur, diastolic murmur, rubs, gallop - GI/Abdominal GI/Abdominal exam: Present: soft. Absent: distended, tenderness, guarding, rebound, rigid, pulsatile mass, hernia - Extremities Exam Extremities exam: Present: normal inspection, full ROM, other (2+ pulses noted in the bilateral upper and lower extremities. There is no palpable cord. negative Homans sign. Muscular compartments are soft. The pelvis is stable.). Absent: pedal edema, calf tenderness - Back Exam Back exam: Present: normal inspection, full ROM. Absent: tenderness, CVA tenderness (R), CVA tenderness (L), paraspinal tenderness, vertebral tenderness - Neurological Exam Neurological exam: Present: alert, oriented X3, other (No facial droop. Tongue midline. Extraocular movements intact bilaterally. Facial sensation intact to light touch in V1, V2, V3 distribution bilaterally. 5 and a 5 strength in 4 extremities. Sensation intact to light touch in 4 extremities.). Absent: motor sensory deficit - Psychiatric Psychiatric exam: Present: anxious - Skin Skin exam: Present: warm, dry, intact, normal color. Absent: rash ED Course Vital Signs 08/22/20 08/22/20 08/23/20 15:52 22:45 00:41 Temperature 98.4 F Pulse Rate 99 H Pulse Rate [ 92 H 86 Throughout] Respiratory 30 H Rate Respiratory 18 18 Rate [ Throughout] Blood Pressure 122/86 [Left] O2 Sat by Pulse 93 Oximetry - Reevaluation(s) Reevaluation #1: 08/22/20 22:46 Differential diagnosis, including but not limited to: Viral syndrome, sinusitis, bronchitis, pneumonia, asthma exacerbation Assessment and plan: 50-year-old female, who denies DVT and pulmonary embolism risk factors, who is low risk by Wells criteria for pulmonary embolism, who is currently PERC negative, presenting with typical asthma exacerbation. I have evaluated this patient multiple times in the past. X-ray of the chest, EKG, laboratory studies were ordered prior to my personal evaluation. I find the patient to be low risk for major adverse cardiac event as per heart score, troponin negative x1, symptoms going on for the past 3 to 4 days, therefore, as per the [employer] clinical policy, myocardial infarction may be excluded with 1 set of troponins/cardiac enzymes if symptoms have been present for greater than 8 hours. This is most likely an asthma exacerbation/reactive airways disease exacerbation, with probable mild sinusitis. Does not have significant sinus tenderness, has clear lungs on x-ray of the chest, has clear nasal discharge, do not currently see an indication for antibiotic therapy. Initiate albuterol, Atrovent, steroids and magnesium. Again, as in the past, I have recommended subcutaneous epinephrine to assist in the patient's symptomatology. Patient was specifically counseled that epinephrine may assist with resolution of her symptoms, and may also help to avoid worsening of reactive airway disease, and if she theoretically worsens clinically, could help avoid intubation, mechanical ventilation, and even . She still continues to decline/refuse this medication. At the moment, patient currently alert, oriented, clinically sober, exhibits decision-making capacity, and is free from distracting injury at this time. Reassess after initial therapies have been administered. Reevaluation #2: 08/23/20 00:24 Feeling improved. Saturating at 94, 95% on room air. Minimal wheezing and rhonchi noted, but appears much more comfortable. Requesting an additional breathing treatment. Additional albuterol is ordered. Reevaluation #3: 08/23/20 03:16 Reassessed. Sleeping comfortably. No acute distress. Work of breathing improved. Resting comfortably on her stretcher during multiple repeat evaluations. This appears to be consistent with my my prior evaluations for this particular patient. 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 ED Medical Decision Making - Lab Data Result diagrams: 08/22/20 17:15 08/22/20 17:15 Vital Signs 08/22/20 15:52 Temperature 98.4 F Pulse Rate 99 H Respiratory 30 H Rate Blood Pressure 122/86 [Left] O2 Sat by Pulse 93 Oximetry Lab Results 08/22/20 08/22/20 08/22/20 Range/Units 17:15 17:15 17:15 WBC 10.2 (4.5-11.0) K/mm3 RBC 4.95 (3.65-5.03) M/mm3 Hgb 13.5 (10.1-14.3) gm/dl Hct 41.8 (30.3-42.9) % MCV 84 (79-97) fl MCH 27 L (28-32) pg MCHC 32 (30-34) % RDW 15.5 H (13.2-15.2) % Plt Count 236 (140-440) K/mm3 Lymph % (Auto) 14.9 (13.4-35.0) % [place] % (Auto) 6.4 (0.0-7.3) % Eos % (Auto) 3.3 (0.0-4.3) % Baso % (Auto) 0.4 (0.0-1.8) % Lymph # (Auto) 1.5 (1.2-5.4) K/mm3 [place] # (Auto) 0.7 (0.0-0.8) K/mm3 Eos # (Auto) 0.3 (0.0-0.4) K/mm3 Baso # (Auto) 0.0 (0.0-0.1) K/mm3 Seg Neutrophils % 75.0 H (40.0-70.0) % Seg Neutrophils # 7.7 (1.8-7.7) K/mm3 Sodium 141 (137-145) mmol/L Potassium 4.2 (3.6-5.0) mmol/L Chloride 105.6 (98-107) mmol/L Carbon Dioxide 24 (22-30) mmol/L Anion Gap 16 mmol/L BUN 13 (7-17) mg/dL Creatinine 0.8 (0.6-1.2) mg/dL Estimated GFR > 60 ml/min BUN/Creatinine Ratio 16 % Glucose 167 H (65-100) mg/dL Calcium 9.2 (8.4-10.2) mg/dL Total Bilirubin 0.30 (0.1-1.2) mg/dL AST 21 (5-40) units/L ALT 24 (7-56) units/L Alkaline Phosphatase 68 (35-129) units/L Troponin T < 0.010 (0.00-0.029) ng/mL NT-Pro-B Natriuret Pep (0-450) pg/mL Total Protein 7.1 (6.3-8.2) g/dL Albumin 4.1 (3.9-5) g/dL Albumin/Globulin Ratio 1.4 % TSH 4.870 H (0.270-4.200) mlU/mL 11/16/20 Range/Units 17:15 WBC (4.5-11.0) K/mm3 RBC (3.65-5.03) M/mm3 Hgb (10.1-14.3) gm/dl Hct (30.3-42.9) % MCV (79-97) fl MCH (28-32) pg MCHC (30-34) % RDW (13.2-15.2) % Plt Count (140-440) K/mm3 Lymph % (Auto) (13.4-35.0) % [place] % (Auto) (0.0-7.3) % Eos % (Auto) (0.0-4.3) % Baso % (Auto) (0.0-1.8) % Lymph # (Auto) (1.2-5.4) K/mm3 [place] # (Auto) (0.0-0.8) K/mm3 Eos # (Auto) (0.0-0.4) K/mm3 Baso # (Auto) (0.0-0.1) K/mm3 Seg Neutrophils % (40.0-70.0) % Seg Neutrophils # (1.8-7.7) K/mm3 Sodium (137-145) mmol/L Potassium (3.6-5.0) mmol/L Chloride (98-107) mmol/L Carbon Dioxide (22-30) mmol/L Anion Gap mmol/L BUN (7-17) mg/dL Creatinine (0.6-1.2) mg/dL Estimated GFR ml/min BUN/Creatinine Ratio % Glucose (65-100) mg/dL Calcium (8.4-10.2) mg/dL Total Bilirubin (0.1-1.2) mg/dL AST (5-40) units/L ALT (7-56) units/L Alkaline Phosphatase (35-129) units/L Troponin T (0.00-0.029) ng/mL NT-Pro-B Natriuret Pep 15.43 (0-450) pg/mL Total Protein (6.3-8.2) g/dL Albumin (3.9-5) g/dL Albumin/Globulin Ratio % TSH (0.270-4.200) mlU/mL - EKG Data -: EKG Interpreted by Tx EKG shows normal: sinus rhythm Rate: normal - EKG Data 08/22/20 22:45 EKG today is compared to prior EKG from July 2020 Today's EKG is unchanged from prior EKG. Sinus rhythm, 79 bpm, normal axis, normal intervals, motion artifact, not a STEMI. - Radiology Data Radiology results: pending, report reviewed, image reviewed Print Report Referring Physician: SALEEM DIGGS Patient Name: DAHIANA GERMAN Date of : 1970 Sex: Female Report Date: 2020-08-22 Report Status: Finalized Findings [facility] [address] [place] [address] XRay Report Signed Patient: DAHIANA GERMAN MR#: [id number] : 1970 Acct:[id number] Age/Sex: 50 / F ADM Date: 08/22/20 Loc: ED Attending Dr: Ordering Physician: LIDIA OLIVERA Date of Service: 08/22/20 Procedure(s): XR chest routine 2V Accession Number(s): [id number] cc: LIDIA OLIVERA Fluoro Time In Minutes: CHEST 2 VIEWS INDICATION / CLINICAL INFORMATION: Asthma. COMPARISON: 07/18/2020 FINDINGS: SUPPORT DEVICES: None. HEART / MEDIASTINUM: No significant abnormality. LUNGS / PLEURA: No significant pulmonary or pleural abnormality. No pneumothorax. ADDITIONAL FINDINGS: No significant additional findings. IMPRESSION: No significant abnormality or interval change from 07/18/2020 Signer Name: Neftaly Wilkerson MD FACR Signed: 5:01 PM Workstation Name: [id number] Transcribed By: MS Dictated By: Neftaly Wilkerson MD Electronically Authenticated By: Neftaly Wilkerson MD Signed Date/Time: 08/22/20 170 DD/ 1700 Critical Care Time: Yes Critical care time in (mins) excluding proc time.: 35 Critical care attestation.: If time is entered above; I have spent that time in minutes in the direct care of this critically ill patient, excluding procedure time. ED Disposition Clinical Impression: Nasal congestion Asthma with acute exacerbation Qualifiers: Asthma severity: unspecified severity Asthma persistence: intermittent Qualified Code(s): J45.21 - Mild intermittent asthma with (acute) exacerbation Disposition: - TO HOME OR SELFCARE Is pt being admited?: No Does the pt Need Aspirin: No Condition: Stable Additional Instructions: Take the medications as prescribed and directed. Use the breathing medications as often as as needed for symptoms. Please follow-up with your primary care doctor or pin ball machine mechanic within the next week. Please return to the emergency room right away with new pain, worsening pain, migration of pain, projectile vomiting, change in mental status, confusion, inability to tolerate liquid feeds, new, worsened or different symptoms not present on the initial emergency room evaluation. Referrals: PARKER BROCK MD [Staff Physician] - 3-5 Days Forms: Work/School Release Form(ED)
[2020-08-23] MEDS ORDERED: ALBUTEROL 2.5 MG/3 ML NEBU IH ONE (00:23)
[2020-08-23 07:47] VITALS: BP 135/93
== END 2020-08-23 03:30 | disposition home or self-care (01) ==
LOC: ED 15:47
DX: J45.901 Unspecified asthma with (acute) exacerbation (principal); R09.81 Nasal congestion; K21.9 Gastro-esophageal reflux disease without esophagitis; Z98.890 Other specified postprocedural states; Z98.51 Tubal ligation status; Z79.899 Other long term (current) drug therapy; Z88.8 Allergy status to other drugs, medicaments and biological substances; Z88.1 Allergy status to other antibiotic agents
CPT/HCPCS: 36415; 71046; 80053; 83880; 84443; 84484; 85025; 93005; 94640; 94644; 96365; 96375; 99285; J2930; J3475; J7040

== ENCOUNTER 2020-09-16 03:54 | Observation (INO) | payer OTHER, MEDICARE ==
[2020-09-16] MEDS ORDERED: MAGNESIUM SULFATE 2 GM/50 ML BAG IV ONE (04:42)
[2020-09-16] MEDS ORDERED: IPRATROPIUM 0.02% NEBU 2.5 ML IH ONE (04:42)
[2020-09-16] MEDS ORDERED: ALBUTEROL 2.5 MG/3 ML NEBU IH ONE (04:42)
[2020-09-16] MEDS ORDERED: ACETAMINOPHEN 500 MG TAB PO ONE (04:43)
--- NOTE | 2020-09-16 04:44 | Emergency Department Report ---
ED Asthma HPI - General Chief Complaint: Adult Asthma Stated Complaint: SILVIANO PUI?: No Time Seen by Provider: 09/16/20 04:39 Source: patient Mode of arrival: Ambulatory Limitations: No Limitations - History of Present Illness Initial Comments: Patient is a 50-year-old female that presents emergency room with complaints of shortness of breath and cough and wheezing. Patient states she has bad asthma. Patient states she is taking multiple nebulizer treatments at home and it is not working. Patient states that she received Solu-Medrol 125 mg from EMS. Patient states that her symptoms are worsening. Patient states her shortness of breath is better with rest and worse with exertion. Patient denies fever and chills. Patient denies sputum production. Patient states her cough is dry. Patient denies fever and chills. Patient brought in by EMS. EMS report received. Patient found to be hypoxic and the patient placed on oxygen. Nebs given by EMS. Patient had Solu-Medrol 125 mg in route. Patient denies recent travel. Patient denies recent international travel. Patient denies exposure to the novel coronavirus. Patient denies sick contacts. Patient denies fever and chills. Patient denies diarrhea. Patient denies coming in contact with anybody with symptoms of the novel coronavirus. MD Complaint: "asthma attack", shortness of breath, wheezing -: Sudden - Related Data Home Medications Medication Instructions Recorded Confirmed Last Taken AtorvaSTATin [Lipitor] 40 mg PO QHS 01/12/20 04/23/20 Unknown Levothyroxine [Synthroid] 25 mcg PO QDAY 02/24/20 04/23/20 Unknown Ascorbic Acid [Vitamin C] 04/23/20 Unknown Cinnamon 04/23/20 Unknown Ergocalciferol(Vitamin D2)(Nf) 04/23/20 Unknown [Vitamin D (Nf)] Fluticasone/Salmeterol [Advair 1 puff IH BID 04/23/20 04/23/20 Unknown Diskus 500-50 mcg] Vitamin E 04/23/20 Unknown Previous Rx's Medication Instructions Recorded Last Taken Type Diphenoxylate/Atropine [Lomotil] 1 tab PO Q6H PRN #14 tablet 04/23/20 Unknown Rx levoFLOXacin [Levaquin TAB] 500 mg PO Q24HR #7 tablet 04/23/20 Unknown Rx metroNIDAZOLE [Flagyl TAB] 500 mg PO Q12H #14 tablet 04/23/20 Unknown Rx Cetirizine HCl/Pseudoephedrine 1 each PO BID PRN #20 tab.er.12h 05/03/20 Unknown Rx [Zyrtec-D Tablet] ALBUTEROL NEB's [Proventil 0.083% 3 ml IH Q6H PRN 30 Days #75 ml 05/16/20 Unknown Rx NEBS] Benzonatate [Tessalon Perles] 100 mg PO Q8HR #30 capsule 05/16/20 Unknown Rx Prednisone [predniSONE 10 mg 10 mg PO .TAPER #21 tab.ds.pk 05/16/20 Unknown Rx (6-Day Pack, 21 Tabs)] Prednisone [predniSONE 10 mg 10 mg PO .TAPER #1 tab.ds.pk 06/14/20 Unknown Rx (6-Day Pack, 21 Tabs)] ALBUTEROL NEB's [Proventil 0.083% 2.5 mg IH TID PRN #1 box 06/24/20 Unknown Rx NEBS] Albuterol Sulfate [Proair 1 - 2 puff IH Q4HR PRN #1 06/24/20 Unknown Rx Digihaler] aer.pw.bas Sulfamethoxazole/Trimethoprim 1 each PO BID #20 tablet 06/24/20 Unknown Rx [Bactrim DS TAB] ALBUTEROL NEB's [Proventil 0.083% 2.5 mg IH Q6HRT PRN #1 box 07/18/20 Unknown Rx NEBS] predniSONE [Deltasone] 20 mg PO BID #8 tab 07/18/20 Unknown Rx Albuterol Sulfate [Albuterol 0.63% 0.63 mg IH Q4HR PRN #2 ml 08/23/20 Unknown Rx NEBS] Albuterol Sulfate [Proair 90 mcg IH Q4HR PRN #2 aer.pow.ba 08/23/20 Unknown Rx Respiclick] Ipratropium (Nf) [Atrovent HFA 2 puff IH Q6HR PRN #1 inha 08/23/20 Unknown Rx 17MCG/PUFF] Ipratropium [Atrovent NEB] 0.5 mg IH Q4HR #2 ml 08/23/20 Unknown Rx predniSONE [Deltasone] 40 mg PO QDAY #10 tab 08/23/20 Unknown Rx Allergies Allergy/AdvReac Type Severity Reaction Status Date / Time aspirin Allergy Anaphylaxis Verified 01/13/20 11:14 azithromycin [From Zithromax] Allergy Anaphylaxis Verified 01/12/20 11:49 doxycycline Allergy Rash Verified 08/31/19 16:04 ketorolac tromethamine Allergy Anaphylaxis Verified 08/31/19 16:04 [From Toradol] Latex, Natural Rubber Allergy Angioedema Verified 08/31/19 16:04 morphine Allergy Shortness Verified 08/31/19 16:04 of Breath NSAIDS (Non-Steroidal Allergy Anaphylaxis Verified 01/12/20 11:49 Anti-Inflamma Penicillins Allergy Hives Verified 01/12/20 11:49 ED Review of Systems ROS: Stated complaint: SILVIANO Other details as noted in HPI Constitutional: denies: chills, fever Eyes: denies: eye pain, eye discharge, vision change ENT: denies: ear pain, throat pain Respiratory: cough, shortness of breath, wheezing Cardiovascular: denies: chest pain, palpitations Endocrine: no symptoms reported Gastrointestinal: denies: abdominal pain, nausea, diarrhea Genitourinary: denies: urgency, dysuria, discharge Musculoskeletal: denies: back pain, joint swelling, arthralgia Skin: denies: rash, lesions Neurological: denies: headache, weakness, paresthesias Psychiatric: denies: anxiety, depression Hematological/Lymphatic: denies: easy bleeding, easy bruising ED Past Medical Hx - Past Medical History Previous Medical History?: Yes Hx Hypertension: No Hx Heart Attack/AMI: No Hx Congestive Heart Failure: No Hx Diabetes: No Hx Deep Vein Thrombosis: No Hx Pulmonary Embolism: No Hx GERD: Yes Hx Liver Disease: No Hx Renal Disease: No Hx Sickle Cell Disease: No Hx Arthritis: No Hx Seizures: No Hx Kidney Stones: No Hx Asthma: Yes Hx COPD: No Hx Tuberculosis: No Hx Dementia: No Hx HIV: No Additional medical history: sinus problems. Prior Intubations x3. Obesity. hypothyroid - Surgical History Past Surgical History?: Yes Hx Coronary Stent: No Hx Open Heart Surgery: No Hx Pacemaker: No Hx Internal Defibrillator: No Hx Cholecystectomy: No Hx Appendectomy: No Hx Breast Surgery: No Additional Surgical History: x4, umbilical hernia repair, sinus surgeries, D&C. thyroid removal. tubligation - Family History Family history: no significant - Social History Smoking Status: Never Smoker Substance Use Type: None - Medications Home Medications: Home Medications Medication Instructions Recorded Confirmed Last Taken Type AtorvaSTATin [Lipitor] 40 mg PO QHS 01/12/20 04/23/20 Unknown History Levothyroxine [Synthroid] 25 mcg PO QDAY 02/24/20 04/23/20 Unknown History Ascorbic Acid [Vitamin C] 04/23/20 Unknown History Cinnamon 04/23/20 Unknown History Diphenoxylate/Atropine [Lomotil] 1 tab PO Q6H PRN #14 tablet 04/23/20 Unknown Rx Ergocalciferol(Vitamin D2)(Nf) 04/23/20 Unknown History [Vitamin D (Nf)] Fluticasone/Salmeterol [Advair 1 puff IH BID 04/23/20 04/23/20 Unknown History Diskus 500-50 mcg] Vitamin E 04/23/20 Unknown History levoFLOXacin [Levaquin TAB] 500 mg PO Q24HR #7 tablet 04/23/20 Unknown Rx metroNIDAZOLE [Flagyl TAB] 500 mg PO Q12H #14 tablet 04/23/20 Unknown Rx Cetirizine HCl/Pseudoephedrine 1 each PO BID PRN #20 tab.er.12h 05/03/20 Unknown Rx [Zyrtec-D Tablet] ALBUTEROL NEB's [Proventil 0.083% 3 ml IH Q6H PRN 30 Days #75 ml 05/16/20 Unknown Rx NEBS] Benzonatate [Tessalon Perles] 100 mg PO Q8HR #30 capsule 05/16/20 Unknown Rx Prednisone [predniSONE 10 mg 10 mg PO .TAPER #21 tab.ds.pk 05/16/20 Unknown Rx (6-Day Pack, 21 Tabs)] Prednisone [predniSONE 10 mg 10 mg PO .TAPER #1 tab.ds.pk 06/14/20 Unknown Rx (6-Day Pack, 21 Tabs)] ALBUTEROL NEB's [Proventil 0.083% 2.5 mg IH TID PRN #1 box 06/24/20 Unknown Rx NEBS] Albuterol Sulfate [Proair 1 - 2 puff IH Q4HR PRN #1 06/24/20 Unknown Rx Digihaler] aer.pw.bas Sulfamethoxazole/Trimethoprim 1 each PO BID #20 tablet 06/24/20 Unknown Rx [Bactrim DS TAB] ALBUTEROL NEB's [Proventil 0.083% 2.5 mg IH Q6HRT PRN #1 box 07/18/20 Unknown Rx NEBS] predniSONE [Deltasone] 20 mg PO BID #8 tab 07/18/20 Unknown Rx Albuterol Sulfate [Albuterol 0.63% 0.63 mg IH Q4HR PRN #2 ml 08/23/20 Unknown Rx NEBS] Albuterol Sulfate [Proair 90 mcg IH Q4HR PRN #2 aer.pow.ba 08/23/20 Unknown Rx Respiclick] Ipratropium (Nf) [Atrovent HFA 2 puff IH Q6HR PRN #1 inha 08/23/20 Unknown Rx 17MCG/PUFF] Ipratropium [Atrovent NEB] 0.5 mg IH Q4HR #2 ml 08/23/20 Unknown Rx predniSONE [Deltasone] 40 mg PO QDAY #10 tab 08/23/20 Unknown Rx ED Physical Exam - General Limitations: No Limitations General appearance: alert, in distress - Head Head exam: Present: atraumatic, normocephalic - Eye Eye exam: Present: normal appearance - ENT ENT exam: Present: mucous membranes moist - Neck Neck exam: Present: normal inspection - Respiratory Respiratory exam: Present: respiratory distress, wheezes, decreased breath sounds - Cardiovascular Cardiovascular Exam: Present: regular rate, normal rhythm. Absent: systolic murmur, diastolic murmur, rubs, gallop - GI/Abdominal GI/Abdominal exam: Present: soft, normal bowel sounds - Extremities Exam Extremities exam: Present: normal inspection - Back Exam Back exam: Present: normal inspection - Neurological Exam Neurological exam: Present: alert, oriented X3 - Psychiatric Psychiatric exam: Present: normal affect, normal mood - Skin Skin exam: Present: warm, dry, intact, normal color. Absent: rash ED Course Vital Signs 09/16/20 09/16/20 09/16/20 04:16 04:23 04:30 Temperature 99 F Pulse Rate 97 H Respiratory 16 Rate Blood Pressure 118/81 O2 Sat by Pulse 97 96 Oximetry - Reevaluation(s) Reevaluation #1: I discussed all results with patient. I discussed plan of care with patient. Patient agrees with plan of care and admission. Patient to be admitted to the hospitalist service. 09/16/20 06:12 - Consultations Consultation #1: Hospitalist consulted for admission. Hospitalist to admit patient. 09/16/20 06:12 ED Medical Decision Making - Lab Data Result diagrams: 09/16/20 05:10 09/16/20 05:10 - Radiology Data Radiology results: report reviewed, image reviewed interpreted by me: Chest x-ray: No pneumonia, no pneumothorax, no foreign body, no osseous findings, no acute findings CHEST 1 VIEW INDICATION / CLINICAL INFORMATION: Asthma. COMPARISON: Chest radiograph 08/22/2020 FINDINGS: SUPPORT DEVICES: None. HEART / MEDIASTINUM: No significant abnormality. LUNGS / PLEURA: No significant pulmonary or pleural abnormality. No p neumothorax. ADDITIONAL FINDINGS: No significant additional findings. IMPRESSION: 1. No acute findings. - Medical Decision Making Patient is a 50-year-old female that presents emergency room for status asthmaticus, shortness of breath, hypoxia and respiratory failure. Patient brought in by EMS. Patient took multiple nebulizers prior to calling EMS. Patient had nebulizer, Solu-Medrol and oxygen therapy in route. Patient was given magnesium in the ER. Patient required supplemental oxygen while in ER. Patient consistent with status asthmaticus. Patient had labs done which were essentially unremarkable. Patient chest x-ray negative. Patient admitted to the hospital service for further evaluation treatment. - Differential Diagnosis Status asthmaticus, shortness of breath, hypoxia, Critical Care Time: Yes Critical care time in (mins) excluding proc time.: 35 Critical care attestation.: If time is entered above; I have spent that time in minutes in the direct care of this critically ill patient, excluding procedure time. Critical Care Time: 35 minutes ED Disposition Clinical Impression: Shortness of breath Asthma with acute exacerbation Qualifiers: Asthma severity: severe Asthma persistence: persistent Qualified Code(s): J45.51 - Severe persistent asthma with (acute) exacerbation Status asthmaticus Qualifiers: Asthma severity: severe Asthma persistence: persistent Qualified Code(s): J45.52 - Severe persistent asthma with status asthmaticus Respiratory failure Qualifiers: Chronicity: acute Respiratory failure complication: hypoxia Qualified Code(s): J96.01 - Acute respiratory failure with hypoxia Disposition: DC-09 OP ADMIT IP TO THIS HOSP Is pt being admited?: Yes Does the pt Need Aspirin: No Condition: Critical Time of Disposition: 06:11
[2020-09-16 05:35] LABS: Basophils % (Auto) 0.4 % (0.0-1.8); Eosinophils # (Auto) 0.6 K/mm3 (0.0-0.4); Hematocrit 38.6 % (30.3-42.9); Hemoglobin 12.8 gm/dl (10.1-14.3); Lymphocytes % (Auto) 11.2 % (13.4-35.0); Mean Corpuscular HGB Conc 33 % (30-34); Mean Corpuscular Volume 83 fl (79-97); Monocytes # (Auto) 0.6 K/mm3 (0.0-0.8); Monocytes % (Auto) 6.5 % (0.0-7.3); Platelet Count 227 K/mm3 (140-440); Red Blood Count 4.67 M/mm3 (3.65-5.03); Red Cell Distribution Width 15.4 % (13.2-15.2)
[2020-09-16 05:59] LABS: Alanine Aminotransferase 24 units/L (7-56); BUN/Creatinine Ratio 12; Blood Urea Nitrogen 11 mg/dL (7-17); Hemolysis Index 24
--- NOTE | 2020-09-16 06:34 | XRay Report ---
CHEST 1 VIEW INDICATION / CLINICAL INFORMATION: Asthma. COMPARISON: Chest radiograph 08/22/2020 FINDINGS: SUPPORT DEVICES: None. HEART / MEDIASTINUM: No significant abnormality. LUNGS / PLEURA: No significant pulmonary or pleural abnormality. No pneumothorax. ADDITIONAL FINDINGS: No significant additional findings. IMPRESSION: 1. No acute findings. Signer Name: Marguerite Freeman MD Signed: 09/16/2020 6:29 AM Workstation Name: [id number]
[2020-09-16] MEDS ORDERED: methylPREDNISolone Sod Succinate 125 MG/2 ML INJ IV SCH (07:45)
--- NOTE | 2020-09-16 07:56 | History and Physical Report ---
History of Present Illness Date of examination: 09/16/20 Date of admission: 09/16/20 06:14 Chief complaint: Shortness of breath History of present illness: 50-year-old -[place] female with past medical history significant for asthma, sinusitis, GERD presented to the emergency department for the complaints of shortness of breath. She has been short of breath for the last 3 days. Patient states she ran out of her DuoNeb's for the last 1 week. She states she was using albuterol but it did not help her much. She called EMS this morning and presented to the emergency department. Patient was hypoxic in the emergency department and was placed on 4 L of oxygen. Chest x-ray was normal, labs were unremarkable and patient will be admitted to the floor for the management of acute asthma exacerbation. Patient was placed on IV Solu-Medrol, DuoNebs, azithromycin for her sinusitis. Patient stated she is not allergic to IV azithromycin but allergic to p.o. azithromycin. REVIEW OF SYSTEMS: GENERAL: no weight change, no fatigue, no fever HEAD: no head ache EYES: no blurry vision, no acute visual loss EARS: no hearing loss, no discharge, no earache NOSE: no stuffiness, no sneezing, no discharge MOUTH, THROAT AND NECK: no bleeding gums, no sore throat, no swollen neck CARDIAC: no palpitations, no dyspnea on exertion, no orthopnea, no PND, no edema, no chest pain RESPIRATORY: As stated in the HPI. GI: no decreased appetite, no nausea, no vomiting, no dysphagia, no diarrhea, no constipation, no abdominal pain URINARY: No urgency, hematuria, dysuria or frequency. MUSCULOSKELETAL: no muscle weakness, no pain, no joint stiffness NEUROLOGIC: no loss of sensation/numbness, no tingling, no tremors, no weakness/paralysis HEMATOLOGIC: no anemia, no easy bruising SKIN: no rashes ENDOCRINE: no heat/cold intolerance, no polyuria, no polydipsia, no thyroid problems, no diabetes PSYCHIATRIC: no anxiety, no depression, no suicidal ideations Past History Past Medical History: GERD, other (Asthma, sinusitis) Past Surgical History: , Other (Thyroidectomy) Social history: full code. denies: smoking, alcohol abuse, prescription drug abuse, IV drug use Family history: other (Mother has history of asthma) Medications and Allergies Allergies Allergy/AdvReac Type Severity Reaction Status Date / Time aspirin Allergy Anaphylaxis Verified 01/13/20 11:14 azithromycin [From Zithromax] Allergy Anaphylaxis Verified 01/12/20 11:49 doxycycline Allergy Rash Verified 08/31/19 16:04 ketorolac tromethamine Allergy Anaphylaxis Verified 08/31/19 16:04 [From Toradol] Latex, Natural Rubber Allergy Angioedema Verified 08/31/19 16:04 morphine Allergy Shortness Verified 08/31/19 16:04 of Breath NSAIDS (Non-Steroidal Allergy Anaphylaxis Verified 01/12/20 11:49 Anti-Inflamma Penicillins Allergy Hives Verified 01/12/20 11:49 Home Medications Medication Instructions Recorded Confirmed Last Taken Type AtorvaSTATin [Lipitor] 40 mg PO QHS 01/12/20 04/23/20 Unknown History Levothyroxine [Synthroid] 25 mcg PO QDAY 02/24/20 04/23/20 Unknown History Ascorbic Acid [Vitamin C] 04/23/20 Unknown History Cinnamon 04/23/20 Unknown History Diphenoxylate/Atropine [Lomotil] 1 tab PO Q6H PRN #14 tablet 04/23/20 Unknown Rx Ergocalciferol(Vitamin D2)(Nf) 04/23/20 Unknown History [Vitamin D (Nf)] Fluticasone/Salmeterol [Advair 1 puff IH BID 04/23/20 04/23/20 Unknown History Diskus 500-50 mcg] Vitamin E 04/23/20 Unknown History levoFLOXacin [Levaquin TAB] 500 mg PO Q24HR #7 tablet 04/23/20 Unknown Rx metroNIDAZOLE [Flagyl TAB] 500 mg PO Q12H #14 tablet 04/23/20 Unknown Rx Cetirizine HCl/Pseudoephedrine 1 each PO BID PRN #20 tab.er.12h 05/03/20 Unknown Rx [Zyrtec-D Tablet] ALBUTEROL NEB's [Proventil 0.083% 3 ml IH Q6H PRN 30 Days #75 ml 05/16/20 Unknown Rx NEBS] Benzonatate [Tessalon Perles] 100 mg PO Q8HR #30 capsule 05/16/20 Unknown Rx Prednisone [predniSONE 10 mg 10 mg PO .TAPER #21 tab.ds.pk 05/16/20 Unknown Rx (6-Day Pack, 21 Tabs)] Prednisone [predniSONE 10 mg 10 mg PO .TAPER #1 tab.ds.pk 06/14/20 Unknown Rx (6-Day Pack, 21 Tabs)] ALBUTEROL NEB's [Proventil 0.083% 2.5 mg IH TID PRN #1 box 06/24/20 Unknown Rx NEBS] Albuterol Sulfate [Proair 1 - 2 puff IH Q4HR PRN #1 06/24/20 Unknown Rx Digihaler] aer.pw.bas Sulfamethoxazole/Trimethoprim 1 each PO BID #20 tablet 06/24/20 Unknown Rx [Bactrim DS TAB] ALBUTEROL NEB's [Proventil 0.083% 2.5 mg IH Q6HRT PRN #1 box 07/18/20 Unknown Rx NEBS] predniSONE [Deltasone] 20 mg PO BID #8 tab 07/18/20 Unknown Rx Albuterol Sulfate [Albuterol 0.63% 0.63 mg IH Q4HR PRN #2 ml 08/23/20 Unknown Rx NEBS] Albuterol Sulfate [Proair 90 mcg IH Q4HR PRN #2 aer.pow.ba 08/23/20 Unknown Rx Respiclick] Ipratropium (Nf) [Atrovent HFA 2 puff IH Q6HR PRN #1 inha 08/23/20 Unknown Rx 17MCG/PUFF] Ipratropium [Atrovent NEB] 0.5 mg IH Q4HR #2 ml 08/23/20 Unknown Rx predniSONE [Deltasone] 40 mg PO QDAY #10 tab 08/23/20 Unknown Rx Active Meds: Active Medications Albuterol/Ipratropium (Ipratropium/Albuterol Sulfate 3 Ml Ampul.Neb) 1 ampul IH Q6HRT MURALI Budesonide (Budesonide 0.5 Mg/2 Ml Nebu) 0.5 mg IH Q12HRT MURALI Methylprednisolone Sodium Succinate (Methylprednisolone Sod Succinate 125 Mg/2 Ml Inj) 60 mg IV Q8HR MURALI Exam - Physical Exam Narrative exam: Patient is on 4 L of oxygen The patient is obese. Vital signs as documented. Head exam is unremarkable. No scleral icterus . Neck is without jugular venous distension, thyromegaly, or carotid bruits. Lungs wheezing all over the chest. Cardiac exam reveals regular rate and Rhythm. Abdominal exam reveals normal bowel sounds, nontender, no organomegaly. Extremities are nonedematous and both femoral and pedal pulses are normal. 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 No focal weakness. - Constitutional Vitals: Temp Pulse Resp BP Pulse Ox 99 F 97 H 16 118/81 96 09/16/20 04:23 09/16/20 04:30 09/16/20 04:30 09/16/20 04:30 09/16/20 04:30 Results - Labs CBC & Chem 7: 09/16/20 05:10 09/16/20 05:10 Labs: Laboratory Last Values WBC 9.2 K/mm3 (4.5-11.0) 09/16/20 05:10 RBC 4.67 M/mm3 (3.65-5.03) 09/16/20 05:10 Hgb 12.8 gm/dl (10.1-14.3) 09/16/20 05:10 Hct 38.6 % (30.3-42.9) 09/16/20 05:10 MCV 83 fl (79-97) 09/16/20 05:10 MCH 28 pg (28-32) 09/16/20 05:10 MCHC 33 % (30-34) 09/16/20 05:10 RDW 15.4 % (13.2-15.2) H 09/16/20 05:10 Plt Count 227 K/mm3 (140-440) 09/16/20 05:10 Lymph % (Auto) 11.2 % (13.4-35.0) L 09/16/20 05:10 [place] % (Auto) 6.5 % (0.0-7.3) 09/16/20 05:10 Eos % (Auto) 6.0 % (0.0-4.3) H 09/16/20 05:10 Baso % (Auto) 0.4 % (0.0-1.8) 09/16/20 05:10 Lymph # (Auto) 1.0 K/mm3 (1.2-5.4) L 09/16/20 05:10 [place] # (Auto) 0.6 K/mm3 (0.0-0.8) 09/16/20 05:10 Eos # (Auto) 0.6 K/mm3 (0.0-0.4) H 09/16/20 05:10 Baso # (Auto) 0.0 K/mm3 (0.0-0.1) 09/16/20 05:10 Seg Neutrophils % 75.9 % (40.0-70.0) H 09/16/20 05:10 Seg Neutrophils # 7.0 K/mm3 (1.8-7.7) 09/16/20 05:10 Sodium 141 mmol/L (137-145) 09/16/20 05:10 Potassium 3.7 mmol/L (3.6-5.0) 09/16/20 05:10 Chloride 106.0 mmol/L (98-107) 09/16/20 05:10 Carbon Dioxide 27 mmol/L (22-30) 09/16/20 05:10 Anion Gap 12 mmol/L 09/16/20 05:10 BUN 11 mg/dL (7-17) 09/16/20 05:10 Creatinine 0.9 mg/dL (0.6-1.2) 09/16/20 05:10 Estimated GFR > 60 ml/min 09/16/20 05:10 BUN/Creatinine Ratio 12 % 09/16/20 05:10 Glucose 154 mg/dL (65-100) H 09/16/20 05:10 Calcium 9.0 mg/dL (8.4-10.2) 09/16/20 05:10 Total Bilirubin 0.50 mg/dL (0.1-1.2) 09/16/20 05:10 AST 23 units/L (5-40) 09/16/20 05:10 ALT 24 units/L (7-56) 09/16/20 05:10 Alkaline Phosphatase 59 units/L (35-129) 09/16/20 05:10 Total Protein 7.0 g/dL (6.3-8.2) 09/16/20 05:10 Albumin 4.0 g/dL (3.9-5) 09/16/20 05:10 Albumin/Globulin Ratio 1.3 % 09/16/20 05:10 Assessment and Plan Assessment and plan: Acute hypoxic respiratory failure, acute asthma exacerbation -Patient is on IV Solu-Medrol, nebulizer treatment, oxygen support Sinusitis -Patient is on IV azithromycin, patient states she is allergic to p.o. but does not have any allergy to IV azithromycin. Obesity -We will counseled about lifestyle modification. DVT prophylaxis -Lovenox CODE STATUS -Full Disposition admit to medical floor for observation. Management plan was discussed with the patient and was in agreement with the plan of care. Advance Directives: Yes VTE prophylaxis?: Chemical Plan of care discussed with patient/family: Yes
[2020-09-16] MEDS ORDERED: BUDESONIDE 0.5 MG/2 ML NEBU IH SCH (08:00)
[2020-09-16] MEDS ORDERED: methylPREDNISolone Sod Succinate 40 MG/1 ML INJ IV SCH (08:00)
[2020-09-16] MEDS ORDERED: LEVOTHYROXINE 25 MCG TAB PO SCH (08:15)
[2020-09-16] MEDS ORDERED: AZITHROMYCIN 250 MG TAB PO SCH (10:00)
[2020-09-16] MEDS ORDERED: AZITHROMYCIN 500 MG in SODIUM CHLORIDE 0.9% 250ML 250 ML IV SCH (10:00)
[2020-09-16] MEDS ORDERED: FAMOTIDINE 20 MG TAB PO SCH (10:00)
[2020-09-16] MEDS: IPRATROPIUM/ALBUTEROL SULFATE 3 ML AMPUL.NEB IH SCH ×2 (14:20→14:23)
[2020-09-16 14:21] VITALS: BP 124/74
--- NOTE | 2020-09-16 15:41 | Event Note ---
Date: 09/16/20 Patient evaluated by this provider as she was being discharged patient came back to triage and recall requested to see if she can get a prescription for her Atrovent albuterol and prednisone. Patient states that she had been here since 4 AM and had to leave her son at home by himself which is a minor and realized that her support was not able to watch her son. Patient decided she needed to leave AGAINST MEDICAL ADVICE and states that she feels much better after having her medications. Patient is a frequent flyer of the ER for multiple ER visits of asthma exacerbation. This provider evaluated patient she is in no acute distress lungs are clear vital signs are stable. I discussed with my attending Dr. Porfirio Woods regarding to refill her rescue inhaler Atrovent and prednisone. Patient was advised to follow-up with her primary care provider.
--- NOTE | 2020-09-16 18:54 | Discharge Summary ---
Providers - Providers Date of Admission: 09/16/20 06:14 Date of discharge: 09/16/20 Attending physician: SUSANNA SIMONS MD Primary care physician: [employer] [facility] Hospitalization Reason for admission: acute asthma exacerbation, acute hypoxic respiratory failure Condition: Critical Hospital course: 50-year-old -[place] female with past medical history significant for asthma, sinusitis, GERD presented to the emergency department for the complaints of shortness of breath. She has been short of breath for the last 3 days. Patient states she ran out of her DuoNeb's for the last 1 week. She states she was using albuterol but it did not help her much. She called EMS this morning and presented to the emergency department. Patient was hypoxic in the emergency department and was placed on 4 L of oxygen. Chest x-ray was normal, labs were unremarkable and patient will be admitted to the floor for the management of acute asthma exacerbation. Patient was placed on IV Solu-Medrol, DuoNebs, azithromycin for her sinusitis. Patient stated she is not allergic to IV azithromycin but allergic to p.o. azithromycin. patient was admitted to the floor but while she was waiting to be transferred to the floor she said she has some social issue and wants to go home. patient was on 4L of oxygen and given the risk of worsening of her condition. I explained the risk and despite that the patient left AMA. Later the Patient comeback the triage area and was given a prescription by ED physician. Disposition: DC-07 LEFT AGAINST MED ADVICE Time spent for discharge: 25 minutes - Discharge Diagnoses (1) Asthma exacerbation Status: Acute (2) Asthma with status asthmaticus in adult Status: Acute Qualifiers: Asthma severity: unspecified severity Asthma persistence: unspecified Qualified Code(s): J45.902 - Unspecified asthma with status asthmaticus (3) Chronic sinusitis Status: Acute Qualifiers: Sinusitis location: pansinusitis Qualified Code(s): J32.4 - Chronic pansinusitis Core Measure Documentation - Palliative Care Palliative Care/ Comfort Measures: Not Applicable - Core Measures Any of the following diagnoses?: none Exam - Physical Exam Narrative exam: Patient is on 4 L of oxygen The patient is obese. Vital signs as documented. Head exam is unremarkable. No scleral icterus . Neck is without jugular venous distension, thyromegaly, or carotid bruits. Lungs wheezing all over the chest. Cardiac exam reveals regular rate and Rhythm. Abdominal exam reveals normal bowel sounds, nontender, no organomegaly. Extremities are nonedematous and both femoral and pedal pulses are normal. 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 No focal weakness. - Constitutional Vitals: Temp Pulse Resp BP Pulse Ox 97.8 F 93 H 18 124/74 97 09/16/20 11:00 09/16/20 14:25 09/16/20 14:25 09/16/20 11:00 09/16/20 11:00 Plan Follow up with: PRIMARY CARE, [Primary Care Provider] - 3-5 Days Forms: AMA Form Prescriptions: Ipratropium [Atrovent] 0.5 mg IH Q8HRT #1 box predniSONE [Deltasone] 40 mg PO QDAY #10 tab ALBUTEROL NEB's [Proventil 0.083% NEBS] 2.5 mg IH TID PRN #1 box PRN Reason: Wheezing
[2020-09-16] MEDS ORDERED: ENOXAPARIN 40 MG/0.4 ML INJ SUB-Q SCH (22:00)
== END 2020-09-16 15:15 | disposition left against medical advice (07) ==
LOC: ED 03:54 → 3A 06:14
PROVIDERS: ADMIT Internal Medicine Geriatric Medicine; ATTEND Internal Medicine
DX: J96.01 Acute respiratory failure with hypoxia (principal); J45.42 Moderate persistent asthma with status asthmaticus; J32.4 Chronic pansinusitis; E66.9 Obesity, unspecified; K21.9 Gastro-esophageal reflux disease without esophagitis; Z98.891 History of uterine scar from previous surgery; Z79.82 Long term (current) use of aspirin; Z98.890 Other specified postprocedural states; Z98.51 Tubal ligation status; Z68.37 Body mass index [BMI] 37.0-37.9, adult
CPT/HCPCS: 36415; 71045; 80053; 85025; 94640; 96365; 96367; 96375; 99291; G0378; J0456; J2930; J3475; J7050

== ENCOUNTER 2020-10-07 22:47 | Emergency (ER) | payer OTHER, MEDICARE ==
[2020-10-07] MEDS ORDERED: FAMOTIDINE 20 MG/2 ML INJ IV ONE (23:16)
[2020-10-07] MEDS ORDERED: ONDANSETRON 4 MG/2 ML INJ IV ONE (23:16)
[2020-10-07] MEDS ORDERED: DICYCLOMINE 20 MG/2 ML INJ IM ONE (23:17)
[2020-10-07 23:56] VITALS: BP 114/70
[2020-10-08 00:19] LABS: Basophils % (Auto) 0.2 % (0.0-1.8); Eosinophils # (Auto) 0.6 K/mm3 (0.0-0.4); Hematocrit 39.4 % (30.3-42.9); Lymphocytes # (Auto) 3.2 K/mm3 (1.2-5.4); Lymphocytes % (Auto) 26.5 % (13.4-35.0); Mean Corpuscular HGB Conc 33 % (30-34); Mean Corpuscular Volume 84 fl (79-97); Monocytes # (Auto) 1.3 K/mm3 (0.0-0.8); Monocytes % (Auto) 10.6 % (0.0-7.3); Platelet Count 253 K/mm3 (140-440); Red Blood Count 4.69 M/mm3 (3.65-5.03)
--- NOTE | 2020-10-08 00:54 | Ultrasound Report ---
US abdomen limited INDICATION: RUQ Pain COMPARISON: 04/22/2020 CT abdomen pelvis FINDINGS: Pancreas: No significant abnormality identified in the visualized portions of the pancreas. Abdominal aorta: No significant abnormality. IVC: Normal. Liver: No significant abnormality. Gallbladder: Gallbladder is contracted. No gallstones, gallbladder wall thickening, or pericholecysti c fluid. Bile ducts: The common bile duct measures 2 mm. Right Kidney: Not visualized. Additional findings: No significant additional findings. IMPRESSION: No significant sonographic abnormality identified. Signer Name: Shaun Griffith MD Signed: 10/08/2020 12:49 AM Workstation Name: [id number]
[2020-10-08] MEDS ORDERED: predniSONE 20 MG TAB PO ONE (01:09)
[2020-10-08] MEDS ORDERED: ACETAMINOPHEN 500 MG TAB PO ONE (01:09)
[2020-10-08] MEDS ORDERED: ONDANSETRON 4 MG ODT TAB PO ONE (01:09)
[2020-10-08] MEDS ORDERED: FAMOTIDINE 20 MG TAB PO ONE (01:09)
[2020-10-08 01:13] LABS: Alanine Aminotransferase 22 units/L (7-56); Albumin 4.1 g/dL (3.9-5); BUN/Creatinine Ratio 17; Blood Urea Nitrogen 17 mg/dL (7-17); Calcium 9.3 mg/dL (8.4-10.2); Hemolysis Index 6
[2020-10-08 01:24] LABS: Bacteria,Urine 1+ /HPF (Negative); Bilirubin,Urine NEG (Negative); Blood,Urine NEG (Negative); Calcium Oxalate Crystals,Urine 2+; Color,Urine Yellow (Yellow); Mucus,Urine FEW /HPF; Protein,Urine <15 mg/dL mg/dL (Negative); Urobilinogen,Urine < 2.0 mg/dL (<2.0)
--- NOTE | 2020-10-08 01:31 | Emergency Department Report ---
ED Abdominal Pain HPI - General Chief Complaint: Abdominal Pain Stated Complaint: RIGHT SIDE PAIN Time Seen by Provider: 10/08/20 00:26 Source: patient, old records reviewed Mode of arrival: Ambulatory Limitations: No Limitations - History of Present Illness Initial Comments: 50-year-old female with a past medical history of obesity, asthma with frequent exacerbations and previous intubations, GERD, hypothyroidism, and, umbilical hernia repair, abdominal surgery presents to the hospital complaints of sharp, moderate to severe right upper quadrant pain that started suddenly after eating pasta and meatballs at a restaurant. Pain was worse with palpation and not alleviated by drinking hot water pain did not radiate. She denies nausea, vomiting, diarrhea, or fever. Patient presents with wheezing and states this is chronic with associated shortness of breath secondary to asthma. She has her own nebulizer machine and is currently taking a treatment at time of my evaluation. Patient denies a previous history of known gallstones. Pain has resolved since waiting in the ED and she is currently pain-free. Patient is not taking any current medications for GERD - Related Data Home Medications Medication Instructions Recorded Confirmed Last Taken AtorvaSTATin [Lipitor] 40 mg PO QHS 01/12/20 04/23/20 Unknown Levothyroxine [Synthroid] 25 mcg PO QDAY 02/24/20 04/23/20 Unknown Ascorbic Acid [Vitamin C] 04/23/20 Unknown Cinnamon 04/23/20 Unknown Ergocalciferol(Vitamin D2)(Nf) 04/23/20 Unknown [Vitamin D (Nf)] Fluticasone/Salmeterol [Advair 1 puff IH BID 04/23/20 04/23/20 Unknown Diskus 500-50 mcg] Vitamin E 04/23/20 Unknown Previous Rx's Medication Instructions Recorded Last Taken Type Diphenoxylate/Atropine [Lomotil] 1 tab PO Q6H PRN #14 tablet 04/23/20 Unknown Rx levoFLOXacin [Levaquin TAB] 500 mg PO Q24HR #7 tablet 04/23/20 Unknown Rx metroNIDAZOLE [Flagyl TAB] 500 mg PO Q12H #14 tablet 04/23/20 Unknown Rx Cetirizine HCl/Pseudoephedrine 1 each PO BID PRN #20 tab.er.12h 05/03/20 Unknown Rx [Zyrtec-D Tablet] ALBUTEROL NEB's [Proventil 0.083% 3 ml IH Q6H PRN 30 Days #75 ml 05/16/20 Unknown Rx NEBS] Benzonatate [Tessalon Perles] 100 mg PO Q8HR #30 capsule 05/16/20 Unknown Rx Prednisone [predniSONE 10 mg 10 mg PO .TAPER #21 tab.ds.pk 05/16/20 Unknown Rx (6-Day Pack, 21 Tabs)] Prednisone [predniSONE 10 mg 10 mg PO .TAPER #1 tab.ds.pk 06/14/20 Unknown Rx (6-Day Pack, 21 Tabs)] ALBUTEROL NEB's [Proventil 0.083% 2.5 mg IH TID PRN #1 box 06/24/20 Unknown Rx NEBS] Albuterol Sulfate [Proair 1 - 2 puff IH Q4HR PRN #1 06/24/20 Unknown Rx Digihaler] aer.pw.bas Sulfamethoxazole/Trimethoprim 1 each PO BID #20 tablet 06/24/20 Unknown Rx [Bactrim DS TAB] ALBUTEROL NEB's [Proventil 0.083% 2.5 mg IH Q6HRT PRN #1 box 07/18/20 Unknown Rx NEBS] Albuterol Sulfate [Albuterol 0.63% 0.63 mg IH Q4HR PRN #2 ml 08/23/20 Unknown Rx NEBS] Albuterol Sulfate [Proair 90 mcg IH Q4HR PRN #2 aer.pow.ba 08/23/20 Unknown Rx Respiclick] Ipratropium (Nf) [Atrovent HFA 2 puff IH Q6HR PRN #1 inha 08/23/20 Unknown Rx 17MCG/PUFF] Ipratropium [Atrovent NEB] 0.5 mg IH Q4HR #2 ml 08/23/20 Unknown Rx ALBUTEROL NEB's [Proventil 0.083% 2.5 mg IH TID PRN #1 box 09/16/20 Unknown Rx NEBS] Ipratropium [Atrovent] 0.5 mg IH Q8HRT #1 box 09/16/20 Unknown Rx predniSONE [Deltasone] 40 mg PO QDAY #10 tab 09/16/20 Unknown Rx Famotidine [Pepcid] 20 mg PO BID #20 tablet 10/08/20 Unknown Rx Ondansetron [Zofran Odt] 4 mg PO Q8HR PRN #15 tab.rapdis 10/08/20 Unknown Rx predniSONE [Deltasone] 40 mg PO QDAY 4 Days tab 10/08/20 Unknown Rx Allergies Allergy/AdvReac Type Severity Reaction Status Date / Time aspirin Allergy Anaphylaxis Verified 01/13/20 11:14 azithromycin [From Zithromax] Allergy Anaphylaxis Verified 01/12/20 11:49 doxycycline Allergy Rash Verified 08/31/19 16:04 ketorolac tromethamine Allergy Anaphylaxis Verified 08/31/19 16:04 [From Toradol] Latex, Natural Rubber Allergy Angioedema Verified 08/31/19 16:04 morphine Allergy Shortness Verified 08/31/19 16:04 of Breath NSAIDS (Non-Steroidal Allergy Anaphylaxis Verified 01/12/20 11:49 Anti-Inflamma Penicillins Allergy Hives Verified 01/12/20 11:49 ED Review of Systems ROS: Stated complaint: RIGHT SIDE PAIN Other details as noted in HPI Comment: All other systems reviewed and negative ED Past Medical Hx - Past Medical History Hx Hypertension: No Hx Heart Attack/AMI: No Hx Congestive Heart Failure: No Hx Diabetes: No Hx Deep Vein Thrombosis: No Hx Pulmonary Embolism: No Hx GERD: Yes Hx Liver Disease: No Hx Renal Disease: No Hx Sickle Cell Disease: No Hx Arthritis: No Hx Seizures: No Hx Kidney Stones: No Hx Asthma: Yes Hx COPD: No Hx Tuberculosis: No Hx Dementia: No Hx HIV: No Additional medical history: sinus problems. Prior Intubations x3. Obesity. hypothyroid - Surgical History Hx Coronary Stent: No Hx Open Heart Surgery: No Hx Pacemaker: No Hx Internal Defibrillator: No Hx Cholecystectomy: No Hx Appendectomy: No Hx Breast Surgery: No Additional Surgical History: x4, umbilical hernia repair, sinus surgeries, D&C. thyroid removal. tubligation - Social History Smoking Status: Never Smoker Substance Use Type: None - Medications Home Medications: Home Medications Medication Instructions Recorded Confirmed Last Taken Type AtorvaSTATin [Lipitor] 40 mg PO QHS 01/12/20 04/23/20 Unknown History Levothyroxine [Synthroid] 25 mcg PO QDAY 02/24/20 04/23/20 Unknown History Ascorbic Acid [Vitamin C] 04/23/20 Unknown History Cinnamon 04/23/20 Unknown History Diphenoxylate/Atropine [Lomotil] 1 tab PO Q6H PRN #14 tablet 04/23/20 Unknown Rx Ergocalciferol(Vitamin D2)(Nf) 04/23/20 Unknown History [Vitamin D (Nf)] Fluticasone/Salmeterol [Advair 1 puff IH BID 04/23/20 04/23/20 Unknown History Diskus 500-50 mcg] Vitamin E 04/23/20 Unknown History levoFLOXacin [Levaquin TAB] 500 mg PO Q24HR #7 tablet 04/23/20 Unknown Rx metroNIDAZOLE [Flagyl TAB] 500 mg PO Q12H #14 tablet 04/23/20 Unknown Rx Cetirizine HCl/Pseudoephedrine 1 each PO BID PRN #20 tab.er.12h 05/03/20 Unknown Rx [Zyrtec-D Tablet] ALBUTEROL NEB's [Proventil 0.083% 3 ml IH Q6H PRN 30 Days #75 ml 05/16/20 Unknown Rx NEBS] Benzonatate [Tessalon Perles] 100 mg PO Q8HR #30 capsule 05/16/20 Unknown Rx Prednisone [predniSONE 10 mg 10 mg PO .TAPER #21 tab.ds.pk 05/16/20 Unknown Rx (6-Day Pack, 21 Tabs)] Prednisone [predniSONE 10 mg 10 mg PO .TAPER #1 tab.ds.pk 06/14/20 Unknown Rx (6-Day Pack, 21 Tabs)] ALBUTEROL NEB's [Proventil 0.083% 2.5 mg IH TID PRN #1 box 06/24/20 Unknown Rx NEBS] Albuterol Sulfate [Proair 1 - 2 puff IH Q4HR PRN #1 06/24/20 Unknown Rx Digihaler] aer.pw.bas Sulfamethoxazole/Trimethoprim 1 each PO BID #20 tablet 06/24/20 Unknown Rx [Bactrim DS TAB] ALBUTEROL NEB's [Proventil 0.083% 2.5 mg IH Q6HRT PRN #1 box 07/18/20 Unknown Rx NEBS] Albuterol Sulfate [Albuterol 0.63% 0.63 mg IH Q4HR PRN #2 ml 08/23/20 Unknown Rx NEBS] Albuterol Sulfate [Proair 90 mcg IH Q4HR PRN #2 aer.pow.ba 08/23/20 Unknown Rx Respiclick] Ipratropium (Nf) [Atrovent HFA 2 puff IH Q6HR PRN #1 inha 08/23/20 Unknown Rx 17MCG/PUFF] Ipratropium [Atrovent NEB] 0.5 mg IH Q4HR #2 ml 08/23/20 Unknown Rx ALBUTEROL NEB's [Proventil 0.083% 2.5 mg IH TID PRN #1 box 09/16/20 Unknown Rx NEBS] Ipratropium [Atrovent] 0.5 mg IH Q8HRT #1 box 09/16/20 Unknown Rx predniSONE [Deltasone] 40 mg PO QDAY #10 tab 09/16/20 Unknown Rx Famotidine [Pepcid] 20 mg PO BID #20 tablet 10/08/20 Unknown Rx Ondansetron [Zofran Odt] 4 mg PO Q8HR PRN #15 tab.rapdis 10/08/20 Unknown Rx predniSONE [Deltasone] 40 mg PO QDAY 4 Days tab 10/08/20 Unknown Rx ED Physical Exam - General Limitations: No Limitations - Other Other exam information: General: No acute distress Head: Atraumatic Eyes: normal appearance ENT: Moist mucous membranes Neck: Normal appearance, no midline tenderness Chest: Clear to auscultation bilaterally CV: Regular rate and rhythm Abdomen: Soft, normal bowel sounds, nontender, nondistended, no rebound or guarding Back: Normal inspection Extremity: Normal inspection, full range of motion Neuro: Alert O x 3, no facial asymmetry, speech clear, no gross motor sensory deficit Psych: Appropriate behavior Skin: No rash ED Course Vital Signs 10/07/20 23:06 Temperature 97.9 F Pulse Rate 85 Respiratory 18 Rate Blood Pressure 114/70 O2 Sat by Pulse 94 Oximetry ED Medical Decision Making - Lab Data Result diagrams: 10/07/20 23:52 10/07/20 23:52 Lab Results 10/07/20 10/07/20 10/07/20 Range/Units 23:52 23:52 23:52 WBC 11.9 H (4.5-11.0) K/mm3 RBC 4.69 (3.65-5.03) M/mm3 Hgb 13.0 (10.1-14.3) gm/dl Hct 39.4 (30.3-42.9) % MCV 84 (79-97) fl MCH 28 (28-32) pg MCHC 33 (30-34) % RDW 15.0 (13.2-15.2) % Plt Count 253 (140-440) K/mm3 Lymph % (Auto) 26.5 (13.4-35.0) % [place] % (Auto) 10.6 H (0.0-7.3) % Eos % (Auto) 5.0 H (0.0-4.3) % Baso % (Auto) 0.2 (0.0-1.8) % Lymph # (Auto) 3.2 (1.2-5.4) K/mm3 [place] # (Auto) 1.3 H (0.0-0.8) K/mm3 Eos # (Auto) 0.6 H (0.0-0.4) K/mm3 Baso # (Auto) 0.0 (0.0-0.1) K/mm3 Seg Neutrophils % 57.7 (40.0-70.0) % Seg Neutrophils # 6.9 (1.8-7.7) K/mm3 Sodium 145 (137-145) mmol/L Potassium 3.6 (3.6-5.0) mmol/L Chloride 106.7 (98-107) mmol/L Carbon Dioxide 22 (22-30) mmol/L Anion Gap 20 mmol/L BUN 17 (7-17) mg/dL Creatinine 1.0 (0.6-1.2) mg/dL Estimated GFR > 60 ml/min BUN/Creatinine Ratio 17 % Glucose 125 H (65-100) mg/dL Calcium 9.3 (8.4-10.2) mg/dL Total Bilirubin 0.30 (0.1-1.2) mg/dL AST 18 (5-40) units/L ALT 22 (7-56) units/L Alkaline Phosphatase 73 (35-129) units/L Total Protein 6.4 (6.3-8.2) g/dL Albumin 4.1 (3.9-5) g/dL Albumin/Globulin Ratio 1.8 % Lipase 46 (13-60) units/L Urine Bilirubin (Negative) Urine RBC (Auto) (0.0-6.0) /HPF U Epithel Cells (Auto) (0-13.0) /HPF 10/07/20 Range/Units Unknown WBC (4.5-11.0) K/mm3 RBC (3.65-5.03) M/mm3 Hgb (10.1-14.3) gm/dl Hct (30.3-42.9) % MCV (79-97) fl MCH (28-32) pg MCHC (30-34) % RDW (13.2-15.2) % Plt Count (140-440) K/mm3 Lymph % (Auto) (13.4-35.0) % [place] % (Auto) (0.0-7.3) % Eos % (Auto) (0.0-4.3) % Baso % (Auto) (0.0-1.8) % Lymph # (Auto) (1.2-5.4) K/mm3 [place] # (Auto) (0.0-0.8) K/mm3 Eos # (Auto) (0.0-0.4) K/mm3 Baso # (Auto) (0.0-0.1) K/mm3 Seg Neutrophils % (40.0-70.0) % Seg Neutrophils # (1.8-7.7) K/mm3 Sodium (137-145) mmol/L Potassium (3.6-5.0) mmol/L Chloride (98-107) mmol/L Carbon Dioxide (22-30) mmol/L Anion Gap mmol/L BUN (7-17) mg/dL Creatinine (0.6-1.2) mg/dL Estimated GFR ml/min BUN/Creatinine Ratio % Glucose (65-100) mg/dL Calcium (8.4-10.2) mg/dL Total Bilirubin (0.1-1.2) mg/dL AST (5-40) units/L ALT (7-56) units/L Alkaline Phosphatase (35-129) units/L Total Protein (6.3-8.2) g/dL Albumin (3.9-5) g/dL Albumin/Globulin Ratio % Lipase (13-60) units/L Urine Bilirubin Neg (Negative) Urine RBC (Auto) 2.0 (0.0-6.0) /HPF U Epithel Cells (Auto) 6.0 (0-13.0) /HPF - Radiology Data Radiology results: report reviewed US abdomen limited INDICATION: RUQ Pain COMPARISON: 04/22/2020 CT abdomen pelvis FINDINGS: Pancreas: No significant abnormality identified in the visualized portions of the pancreas. Abdominal aorta: No significant abnormality. IVC: Normal. Liver: No significant abnormality. Gallbladder: Gallbladder is contracted. No gallstones, gallbladder wall thickening, or pericholecystic fluid. Bile ducts: The common bile duct measures 2 mm. Right Kidney: Not visualized. Additional findings: No significant additional findings. IMPRESSION: No significant sonographic abnormality identified. - Medical Decision Making Patient is labs, UA, and ultrasound without acute abnormality. Patient symptoms resolved prior to my evaluation. I suspect that patient may have gallbladder dysfunction given that she developed right upper quadrant pain after eating meat and pasta however, there are no current findings of stones, cholecystitis, or elevated LFTs/lipase. Is also noted that patient has a previous history of GERD on medical record. Patient treated in the ER with H2 manfred, Tylenol, Zofran, and prednisone for asthma exacerbation. She will be discharged home with similar medications for symptomatic treatment and instructed to follow-up with GI physician as outpatient Critical Care Time: No Critical care attestation.: If time is entered above; I have spent that time in minutes in the direct care of this critically ill patient, excluding procedure time. ED Disposition Clinical Impression: Right upper quadrant pain, Acute asthma exacerbation Disposition: DC-01 TO HOME OR SELFCARE Is pt being admited?: No Does the pt Need Aspirin: No Condition: Stable Instructions: Abdominal Pain (ED), Asthma, Adult, Abdominal Pain, Adult, Easy- to-Read, Biliary Colic, Adult Additional Instructions: Take the medication as prescribed. Take [id number] Tylenol as needed for pain. The cause of your right upper quadrant abdominal pain is unclear at this time. Even though your ultrasound is normal you could still be having pain secondary to gallbladder dysfunction. Follow-up with your doctor or doctor/clinic provided for further outpatient work-up and evaluation. Return if symptoms worsen as indicated by your discharge instructions. Prescriptions: predniSONE [Deltasone] 40 mg PO QDAY 4 Days tab Famotidine [Pepcid] 20 mg PO BID #20 tablet Ondansetron [Zofran Odt] 4 mg PO Q8HR PRN #15 tab.rapdis PRN Reason: Nausea And Vomiting Referrals: KENDALL ANDERSON MD [Primary Care Provider] - 3-5 Days HOLLIE RICCI MD [Staff Physician] - 3-5 Days (GI specialist) Time of Disposition: 01:52
== END 2020-10-08 02:00 | disposition home or self-care (01) ==
LOC: ED 22:47
DX: R10.11 Right upper quadrant pain (principal); J45.901 Unspecified asthma with (acute) exacerbation; K21.9 Gastro-esophageal reflux disease without esophagitis; Z98.890 Other specified postprocedural states; Z79.899 Other long term (current) drug therapy; Z88.8 Allergy status to other drugs, medicaments and biological substances
CPT/HCPCS: 36415; 76705; 80053; 81001; 83690; 85025; 99284; J7512; J0500; J2405; Q0162

== ENCOUNTER 2020-10-23 23:03 | Emergency (ER) | payer OTHER, MEDICARE ==
--- NOTE | 2020-10-23 23:22 | Emergency Department Report ---
Blank Doc - Documentation Documentation: 50-year-old female that presents with SOB and right flank pain. This initial assessment/diagnostic orders/clinical plan/treatment(s) is/are subject to change based on patient's health status, clinical progression and re- assessment by fellow clinical providers in the ED. Further treatment and workup at subsequent clinical providers discretion. Patient/guardians urged not to elope from the ED as their condition may be serious if not clinically assessed and managed. Initial orders include: 1- Patient sent to [facility] for further evaluation and treatment 2- cardiac workup
[2020-10-23 23:58] LABS: Hematocrit 41.1 % (30.3-42.9); Hemoglobin 13.4 gm/dl (10.1-14.3); Mean Corpuscular HGB Conc 33 % (30-34); Mean Corpuscular Volume 84 fl (79-97); Platelet Count 239 K/mm3 (140-440)
[2020-10-24 00:17] LABS: Alanine Aminotransferase 23 units/L (7-56); BUN/Creatinine Ratio 15; Blood Urea Nitrogen 12 mg/dL (7-17); Hemolysis Index 6
[2020-10-24 00:22] LABS: INR 0.97 (0.87-1.13)
[2020-10-24 00:23] LABS: Partial Thromboplastin Time 29.6 Sec. (24.2-36.6)
--- NOTE | 2020-10-24 00:52 | XRay Report ---
CHEST 2 VIEWS 0015 INDICATION / CLINICAL INFORMATION: Chest Pain COMPARISON: 09/16/2020 FINDINGS: SUPPORT DEVICES: None. HEART / MEDIASTINUM: No significant abnormality. LUNGS / PLEURA: Mild elevation the left hemidiaphragm is again seen. No acute infiltrates are noted. No pleural effusions are seen. No pneumothorax. ADDITIONAL FINDINGS: No significant additional findings. IMPRESSION: No significant acute abnormality Signer Name: Tomas Wallace MD Signed: 10/24/2020 12:48 AM Workstation Name: [id number]
[2020-10-24 00:55] LABS: Bilirubin,Urine NEG (Negative); Blood,Urine NEG (Negative); Color,Urine Yellow (Yellow); Mucus,Urine FEW /HPF; Protein,Urine <15 mg/dL mg/dL (Negative); Urobilinogen,Urine < 2.0 mg/dL (<2.0)
[2020-10-24] MEDS ORDERED: IPRATROPIUM 0.02% NEBU 2.5 ML IH ONE ×2 (02:09→02:11)
[2020-10-24] MEDS ORDERED: ALBUTEROL 2.5 MG/3 ML NEBU IH ONE ×2 (02:09→02:11)
[2020-10-24] MEDS ORDERED: MAGNESIUM SULFATE 2 GM/50 ML BAG IV ONE (02:12)
[2020-10-24] MEDS ORDERED: methylPREDNISolone Sod Succinate 125 MG/2 ML INJ IV ONE (02:12)
--- NOTE | 2020-10-24 02:16 | Emergency Department Report ---
ED Shortness of Breath HPI - General Chief Complaint: Dyspnea/Respdistress Stated Complaint: SILVIANO Time Seen by Provider: 10/23/20 23:19 Source: patient Mode of arrival: Ambulatory Limitations: No Limitations - History of Present Illness Initial Comments: Patient is 50 years old female with history of asthma and COPD. Prior history of intubation 4 years ago. Patient presented to the ER complaining of shortness of breath and wheezing for the last 3 days. Patient stated that she has been taking her albuterol with no improvement. Patient denied any chest pain, fever or chills. No nausea or vomiting. MD Complaint: shortness of breath, cough, "asthma attack" -: days(s) (3) Severity: moderate Known History Of: COPD, asthma Context: recent URI Associated Symptoms: denies other symptoms - Related Data Home Medications Medication Instructions Recorded Confirmed Last Taken AtorvaSTATin [Lipitor] 40 mg PO QHS 01/12/20 04/23/20 Unknown Levothyroxine [Synthroid] 25 mcg PO QDAY 02/24/20 04/23/20 Unknown Ascorbic Acid [Vitamin C] 04/23/20 Unknown Cinnamon 04/23/20 Unknown Ergocalciferol(Vitamin D2)(Nf) 04/23/20 Unknown [Vitamin D (Nf)] Fluticasone/Salmeterol [Advair 1 puff IH BID 04/23/20 04/23/20 Unknown Diskus 500-50 mcg] Vitamin E 04/23/20 Unknown Previous Rx's Medication Instructions Recorded Last Taken Type Diphenoxylate/Atropine [Lomotil] 1 tab PO Q6H PRN #14 tablet 04/23/20 Unknown Rx levoFLOXacin [Levaquin TAB] 500 mg PO Q24HR #7 tablet 04/23/20 Unknown Rx metroNIDAZOLE [Flagyl TAB] 500 mg PO Q12H #14 tablet 04/23/20 Unknown Rx Cetirizine HCl/Pseudoephedrine 1 each PO BID PRN #20 tab.er.12h 05/03/20 Unknown Rx [Zyrtec-D Tablet] ALBUTEROL NEB's [Proventil 0.083% 3 ml IH Q6H PRN 30 Days #75 ml 05/16/20 Unknown Rx NEBS] Benzonatate [Tessalon Perles] 100 mg PO Q8HR #30 capsule 05/16/20 Unknown Rx Prednisone [predniSONE 10 mg 10 mg PO .TAPER #21 tab.ds.pk 05/16/20 Unknown Rx (6-Day Pack, 21 Tabs)] Prednisone [predniSONE 10 mg 10 mg PO .TAPER #1 tab.ds.pk 06/14/20 Unknown Rx (6-Day Pack, 21 Tabs)] ALBUTEROL NEB's [Proventil 0.083% 2.5 mg IH TID PRN #1 box 06/24/20 Unknown Rx NEBS] Albuterol Sulfate [Proair 1 - 2 puff IH Q4HR PRN #1 06/24/20 Unknown Rx Digihaler] aer.pw.bas Sulfamethoxazole/Trimethoprim 1 each PO BID #20 tablet 06/24/20 Unknown Rx [Bactrim DS TAB] ALBUTEROL NEB's [Proventil 0.083% 2.5 mg IH Q6HRT PRN #1 box 07/18/20 Unknown Rx NEBS] Albuterol Sulfate [Albuterol 0.63% 0.63 mg IH Q4HR PRN #2 ml 08/23/20 Unknown Rx NEBS] Albuterol Sulfate [Proair 90 mcg IH Q4HR PRN #2 aer.pow.ba 08/23/20 Unknown Rx Respiclick] Ipratropium (Nf) [Atrovent HFA 2 puff IH Q6HR PRN #1 inha 08/23/20 Unknown Rx 17MCG/PUFF] Ipratropium [Atrovent NEB] 0.5 mg IH Q4HR #2 ml 08/23/20 Unknown Rx ALBUTEROL NEB's [Proventil 0.083% 2.5 mg IH TID PRN #1 box 09/16/20 Unknown Rx NEBS] Ipratropium [Atrovent] 0.5 mg IH Q8HRT #1 box 09/16/20 Unknown Rx predniSONE [Deltasone] 40 mg PO QDAY #10 tab 09/16/20 Unknown Rx Famotidine [Pepcid] 20 mg PO BID #20 tablet 10/08/20 Unknown Rx Ondansetron [Zofran Odt] 4 mg PO Q8HR PRN #15 tab.rapdis 10/08/20 Unknown Rx predniSONE [Deltasone] 40 mg PO QDAY 4 Days tab 10/08/20 Unknown Rx Allergies Allergy/AdvReac Type Severity Reaction Status Date / Time aspirin Allergy Anaphylaxis Verified 01/13/20 11:14 azithromycin [From Zithromax] Allergy Anaphylaxis Verified 01/12/20 11:49 doxycycline Allergy Rash Verified 08/31/19 16:04 ketorolac tromethamine Allergy Anaphylaxis Verified 08/31/19 16:04 [From Toradol] Latex, Natural Rubber Allergy Angioedema Verified 08/31/19 16:04 morphine Allergy Shortness Verified 08/31/19 16:04 of Breath NSAIDS (Non-Steroidal Allergy Anaphylaxis Verified 01/12/20 11:49 Anti-Inflamma Penicillins Allergy Hives Verified 01/12/20 11:49 ED Review of Systems ROS: Stated complaint: SILVIANO Other details as noted in HPI Comment: All other systems reviewed and negative Constitutional: denies: chills, fever Respiratory: cough, shortness of breath, wheezing Cardiovascular: denies: chest pain, palpitations, dyspnea on exertion Gastrointestinal: denies: abdominal pain, nausea, vomiting Musculoskeletal: denies: back pain Neurological: denies: headache, weakness ED Past Medical Hx - Past Medical History Previous Medical History?: Yes Hx Hypertension: No Hx Heart Attack/AMI: No Hx Congestive Heart Failure: No Hx Diabetes: No Hx Deep Vein Thrombosis: No Hx Pulmonary Embolism: No Hx GERD: Yes Hx Liver Disease: No Hx Renal Disease: No Hx Sickle Cell Disease: No Hx Arthritis: No Hx Seizures: No Hx Kidney Stones: No Hx Asthma: Yes Hx COPD: No Hx Tuberculosis: No Hx Dementia: No Hx HIV: No Additional medical history: sinus problems. Prior Intubations x3. Obesity. hypothyroid - Surgical History Past Surgical History?: Yes Hx Coronary Stent: No Hx Open Heart Surgery: No Hx Pacemaker: No Hx Internal Defibrillator: No Hx Cholecystectomy: No Hx Appendectomy: No Hx Breast Surgery: No Additional Surgical History: x4, umbilical hernia repair, sinus surgeries, D&C. thyroid removal. tubligation - Social History Smoking Status: Never Smoker Substance Use Type: None - Medications Home Medications: Home Medications Medication Instructions Recorded Confirmed Last Taken Type AtorvaSTATin [Lipitor] 40 mg PO QHS 01/12/20 04/23/20 Unknown History Levothyroxine [Synthroid] 25 mcg PO QDAY 02/24/20 04/23/20 Unknown History Ascorbic Acid [Vitamin C] 04/23/20 Unknown History Cinnamon 04/23/20 Unknown History Diphenoxylate/Atropine [Lomotil] 1 tab PO Q6H PRN #14 tablet 04/23/20 Unknown Rx Ergocalciferol(Vitamin D2)(Nf) 04/23/20 Unknown History [Vitamin D (Nf)] Fluticasone/Salmeterol [Advair 1 puff IH BID 04/23/20 04/23/20 Unknown History Diskus 500-50 mcg] Vitamin E 04/23/20 Unknown History levoFLOXacin [Levaquin TAB] 500 mg PO Q24HR #7 tablet 04/23/20 Unknown Rx metroNIDAZOLE [Flagyl TAB] 500 mg PO Q12H #14 tablet 04/23/20 Unknown Rx Cetirizine HCl/Pseudoephedrine 1 each PO BID PRN #20 tab.er.12h 05/03/20 Unknown Rx [Zyrtec-D Tablet] ALBUTEROL NEB's [Proventil 0.083% 3 ml IH Q6H PRN 30 Days #75 ml 05/16/20 Unknown Rx NEBS] Benzonatate [Tessalon Perles] 100 mg PO Q8HR #30 capsule 05/16/20 Unknown Rx Prednisone [predniSONE 10 mg 10 mg PO .TAPER #21 tab.ds.pk 05/16/20 Unknown Rx (6-Day Pack, 21 Tabs)] Prednisone [predniSONE 10 mg 10 mg PO .TAPER #1 tab.ds.pk 06/14/20 Unknown Rx (6-Day Pack, 21 Tabs)] ALBUTEROL NEB's [Proventil 0.083% 2.5 mg IH TID PRN #1 box 06/24/20 Unknown Rx NEBS] Albuterol Sulfate [Proair 1 - 2 puff IH Q4HR PRN #1 06/24/20 Unknown Rx Digihaler] aer.pw.bas Sulfamethoxazole/Trimethoprim 1 each PO BID #20 tablet 06/24/20 Unknown Rx [Bactrim DS TAB] ALBUTEROL NEB's [Proventil 0.083% 2.5 mg IH Q6HRT PRN #1 box 07/18/20 Unknown Rx NEBS] Albuterol Sulfate [Albuterol 0.63% 0.63 mg IH Q4HR PRN #2 ml 08/23/20 Unknown Rx NEBS] Albuterol Sulfate [Proair 90 mcg IH Q4HR PRN #2 aer.pow.ba 08/23/20 Unknown Rx Respiclick] Ipratropium (Nf) [Atrovent HFA 2 puff IH Q6HR PRN #1 inha 08/23/20 Unknown Rx 17MCG/PUFF] Ipratropium [Atrovent NEB] 0.5 mg IH Q4HR #2 ml 08/23/20 Unknown Rx ALBUTEROL NEB's [Proventil 0.083% 2.5 mg IH TID PRN #1 box 09/16/20 Unknown Rx NEBS] Ipratropium [Atrovent] 0.5 mg IH Q8HRT #1 box 09/16/20 Unknown Rx predniSONE [Deltasone] 40 mg PO QDAY #10 tab 09/16/20 Unknown Rx Famotidine [Pepcid] 20 mg PO BID #20 tablet 10/08/20 Unknown Rx Ondansetron [Zofran Odt] 4 mg PO Q8HR PRN #15 tab.rapdis 10/08/20 Unknown Rx predniSONE [Deltasone] 40 mg PO QDAY 4 Days tab 10/08/20 Unknown Rx ED Physical Exam - General Limitations: No Limitations General appearance: alert, in no apparent distress - Head Head exam: Present: atraumatic, normocephalic, normal inspection - Eye Eye exam: Present: normal appearance, PERRL - ENT ENT exam: Present: normal exam, normal orophraynx, mucous membranes moist - Neck Neck exam: Present: normal inspection, full ROM. Absent: tenderness, meningismus - Respiratory Respiratory exam: Present: respiratory distress, wheezes, rales, rhonchi, decreased breath sounds, prolonged expiratory. Absent: accessory muscle use - Cardiovascular Cardiovascular Exam: Present: regular rate, normal rhythm, normal heart sounds - GI/Abdominal GI/Abdominal exam: Present: soft, normal bowel sounds. Absent: distended, tenderness, guarding, rebound, rigid, organomegaly, mass, bruit, hernia - Extremities Exam Extremities exam: Present: normal inspection, full ROM, normal capillary refill. Absent: tenderness, pedal edema, calf tenderness - Back Exam Back exam: Present: normal inspection, full ROM. Absent: CVA tenderness (R), CVA tenderness (L) - Neurological Exam Neurological exam: Present: alert, oriented X3, CN II-XII intact, normal gait, reflexes normal. Absent: motor sensory deficit - Psychiatric Psychiatric exam: Present: normal mood - Skin Skin exam: Present: warm, intact, normal color ED Course Vital Signs 10/23/20 10/24/20 10/24/20 23:27 01:54 02:24 Temperature 98.1 F Pulse Rate 91 H 87 Pulse Rate [ 90 Bilateral Throughout] Respiratory 16 22 Rate Respiratory 20 Rate [Bilateral Throughout] Blood Pressure 133/100 O2 Sat by Pulse 95 96 Oximetry ED Medical Decision Making - Lab Data Result diagrams: 10/23/20 23:30 10/23/20 23:30 - Radiology Data Radiology results: report reviewed - Medical Decision Making Patient is 50 years old female with history of asthma and COPD. Prior history of intubation 4 years ago. Patient presented to the ER complaining of shortness of breath and wheezing for the last 3 days. Patient stated that she has been taking her albuterol with no improvement. Patient denied any chest pain, fever or chills. No nausea or vomiting. Patient received albuterol, Atrovent, Solu-Medrol and magnesium sulfate. Patient stated that she is feeling much better. Labs reviewed and is unremarkable except for slightly elevated white blood cells. Chest x-ray is unremarkable for acute finding. Patient given prescription for prednisone and Augmentin for sinusitis also. Patient advised to follow-up with her primary care physician in the next 2 to 3 days and to return to the ER if he develop any new symptoms. Critical care attestation.: If time is entered above; I have spent that time in minutes in the direct care of this critically ill patient, excluding procedure time. ED Disposition Clinical Impression: Acute asthma exacerbation, Acute sinusitis Disposition: - TO HOME OR SELFCARE Is pt being admited?: No Condition: Stable Instructions: Asthma, Adult, Sinusitis, Adult Referrals: PRIMARY CARE,MD [Primary Care Provider] - 3-5 Days
[2020-10-24] MEDS ORDERED: ONDANSETRON 4 MG/2 ML INJ IV ONE (02:34)
[2020-10-24 05:22] LABS: Platelet Estimate Consistent w Auto; Total Cells Counted 100
[2020-10-24 05:34] VITALS: BP 125/79
== END 2020-10-24 05:40 | disposition home or self-care (01) ==
LOC: ED 23:03
DX: J45.901 Unspecified asthma with (acute) exacerbation (principal); J01.90 Acute sinusitis, unspecified; K21.9 Gastro-esophageal reflux disease without esophagitis; Z98.890 Other specified postprocedural states; Z79.899 Other long term (current) drug therapy; Z88.1 Allergy status to other antibiotic agents; Z88.8 Allergy status to other drugs, medicaments and biological substances
CPT/HCPCS: 36415; 71046; 80053; 81001; 84484; 85007; 85025; 85610; 85730; 93005; 94640; 96365; 96375; 99284; J2405; J2930; J3475; 94644

== ENCOUNTER 2021-01-11 05:33 | Emergency (ER) | payer MEDICARE, OTHER ==
[2021-01-11 06:08] LABS: Basophils # (Auto) 0.1 K/mm3 (0.0-0.1); Basophils % (Auto) 0.6 % (0.0-1.8); Eosinophils # (Auto) 0.8 K/mm3 (0.0-0.4); Eosinophils % (Auto) 7.3 % (0.0-4.3); Hematocrit 38.4 % (30.3-42.9); Hemoglobin 12.6 gm/dl (10.1-14.3); Lymphocytes # (Auto) 1.9 K/mm3 (1.2-5.4); Mean Corpuscular HGB Conc 33 % (30-34); Mean Corpuscular Volume 84 fl (79-97); Monocytes % (Auto) 9.2 % (0.0-7.3); Platelet Count 223 K/mm3 (140-440); Red Blood Count 4.59 M/mm3 (3.65-5.03); Red Cell Distribution Width 15.5 % (13.2-15.2)
[2021-01-11 06:28] LABS: Alanine Aminotransferase 24 units/L (7-56); Albumin 4.1 g/dL (3.9-5); BUN/Creatinine Ratio 11; Blood Urea Nitrogen 11 mg/dL (7-17); Calcium 8.6 mg/dL (8.4-10.2); Hemolysis Index 253
--- NOTE | 2021-01-11 06:32 | XRay Report ---
CHEST 1 VIEW 01/11/2021 6:12 AM INDICATION / CLINICAL INFORMATION: Dyspnea. COMPARISON: 10/24/2020 FINDINGS: SUPPORT DEVICES: None. HEART / MEDIASTINUM: No significant abnormality. LUNGS / PLEURA: No significant pulmonary or pleural abnormality. No pneumothorax. ADDITIONAL FINDINGS: No significant additional findings. IMPRESSION: 1. No acute findings. Signer Name: Fan Singh MD Signed: 01/11/2021 6:28 AM Workstation Name: [id number]
[2021-01-11] MEDS ORDERED: MAGNESIUM SULFATE 2 GM/50 ML BAG IV ONE (06:39)
[2021-01-11] MEDS ORDERED: methylPREDNISolone Sod Succinate 125 MG/2 ML INJ IV ONE (06:39)
[2021-01-11] MEDS ORDERED: IPRATROPIUM/ALBUTEROL SULFATE 3 ML AMPUL.NEB IH ONE (06:40)
[2021-01-11] MEDS ORDERED: SODIUM CHLORIDE 0.9% 500 ML 500 ML IV ONE (07:28)
--- NOTE | 2021-01-11 07:28 | Emergency Department Report ---
ED Shortness of Breath HPI - General Chief Complaint: Dyspnea/Respdistress Stated Complaint: ASTHMA Time Seen by Provider: 01/11/21 06:25 Source: patient Mode of arrival: Wheelchair Limitations: No Limitations - History of Present Illness Initial Comments: This is a 40-year-old female who presents with a COPD exacerbation. She states that she needs IV Levaquin to "break up her sinus infection", and how her neb, magnesium and Solu-Medrol specifically. Later she also requested IV fluids. Apparently the patient has been wheezing since 2 hours prior to arrival. She states that she took home nebs without adequate relief. She is not home O2 dependent. She decided to come to the emergency department for further care. She is not complaining of chest pain. She states that she has been coughing up "saliva" only. She is convinced she has a sinus infection. MD Complaint: "asthma attack" -: hour(s) Severity: moderate Worsens With: nothing Known History Of: COPD, asthma Context: recent URI Associated Symptoms: denies other symptoms - Related Data Home Medications Medication Instructions Recorded Confirmed Last Taken AtorvaSTATin [Lipitor] 40 mg PO QHS 01/12/20 04/23/20 Unknown Levothyroxine [Synthroid] 25 mcg PO QDAY 02/24/20 04/23/20 Unknown Ascorbic Acid [Vitamin C] 04/23/20 Unknown Cinnamon 04/23/20 Unknown Ergocalciferol(Vitamin D2)(Nf) 04/23/20 Unknown [Vitamin D (Nf)] Vitamin E (Dl,Tocopheryl Acet) 04/23/20 Unknown [Vitamin E] Previous Rx's Medication Instructions Recorded Last Taken Type Diphenoxylate/Atropine [Lomotil] 1 tab PO Q6H PRN #14 tablet 04/23/20 Unknown Rx metroNIDAZOLE [Flagyl TAB] 500 mg PO Q12H #14 tablet 04/23/20 Unknown Rx Cetirizine HCl/Pseudoephedrine 1 each PO BID PRN #20 tab.er.12h 05/03/20 Unknown Rx [Zyrtec-D Tablet] Benzonatate [Tessalon Perles] 100 mg PO Q8HR #30 capsule 05/16/20 Unknown Rx Prednisone [predniSONE 10 mg 10 mg PO .TAPER #21 tab.ds.pk 05/16/20 Unknown Rx (6-Day Pack, 21 Tabs)] Prednisone [predniSONE 10 mg 10 mg PO .TAPER #1 tab.ds.pk 06/14/20 Unknown Rx (6-Day Pack, 21 Tabs)] ALBUTEROL NEB's [Proventil 0.083% 2.5 mg IH TID PRN #1 box 06/24/20 Unknown Rx NEBS] Albuterol Sulfate [Proair 1 - 2 puff IH Q4HR PRN #1 06/24/20 Unknown Rx Digihaler] aer.pw.bas Sulfamethoxazole/Trimethoprim 1 each PO BID #20 tablet 06/24/20 Unknown Rx [Bactrim DS TAB] ALBUTEROL NEB's [Proventil 0.083% 2.5 mg IH Q6HRT PRN #1 box 07/18/20 Unknown Rx NEBS] Albuterol Sulfate [Albuterol 0.63% 0.63 mg IH Q4HR PRN #2 ml 08/23/20 Unknown Rx NEBS] Albuterol Sulfate [Proair 90 mcg IH Q4HR PRN #2 aer.pow.ba 08/23/20 Unknown Rx Respiclick] Ipratropium (Nf) [Atrovent HFA 2 puff IH Q6HR PRN #1 inha 08/23/20 Unknown Rx 17MCG/PUFF] ALBUTEROL NEB's [Proventil 0.083% 2.5 mg IH TID PRN #1 box 09/16/20 Unknown Rx NEBS] Ipratropium [Atrovent] 0.5 mg IH Q8HRT #1 box 09/16/20 Unknown Rx predniSONE [Deltasone] 40 mg PO QDAY #10 tab 09/16/20 Unknown Rx Famotidine [Pepcid] 20 mg PO BID #20 tablet 10/08/20 Unknown Rx Ondansetron [Zofran Odt] 4 mg PO Q8HR PRN #15 tab.rapdis 10/08/20 Unknown Rx predniSONE [Deltasone] 40 mg PO QDAY 4 Days tab 10/08/20 Unknown Rx Ipratropium [Atrovent] 0.5 mg IH Q4HWA #1 box 10/24/20 Unknown Rx Prednisone [predniSONE 10 mg 10 mg PO .TAPER #1 tab.ds.pk 10/24/20 Unknown Rx (6-Day Pack, 21 Tabs)] levoFLOXacin [Levaquin TAB] 500 mg PO QDAY #7 tablet 10/24/20 Unknown Rx ALBUTEROL NEB's [Proventil 0.083% 3 ml IH Q6H PRN 30 Days #75 ml 01/11/21 Unknown Rx NEBS] Fluticasone/Salmeterol [Advair 1 puff IH BID #1 01/11/21 Unknown Rx Diskus 500-50 mcg] Ipratropium 0.06% [Atrovent] 2 spray NS Q8HR #1 bottle 01/11/21 Unknown Rx Ipratropium [Atrovent NEB] 0.5 mg IH Q4HR #2 ml 01/11/21 Unknown Rx levoFLOXacin [Levaquin TAB] 500 mg PO Q24HR #7 tablet 01/11/21 Unknown Rx predniSONE [Deltasone] 20 mg PO QDAY #20 tab 01/11/21 Unknown Rx Allergies Allergy/AdvReac Type Severity Reaction Status Date / Time aspirin Allergy Anaphylaxis Verified 01/13/20 11:14 azithromycin [From Zithromax] Allergy Anaphylaxis Verified 01/12/20 11:49 doxycycline Allergy Rash Verified 08/31/19 16:04 ketorolac tromethamine Allergy Anaphylaxis Verified 08/31/19 16:04 [From Toradol] Latex, Natural Rubber Allergy Angioedema Verified 08/31/19 16:04 morphine Allergy Shortness Verified 08/31/19 16:04 of Breath NSAIDS (Non-Steroidal Allergy Anaphylaxis Verified 01/12/20 11:49 Anti-Inflamma Penicillins Allergy Hives Verified 01/12/20 11:49 ED Review of Systems ROS: Stated complaint: ASTHMA Other details as noted in HPI Constitutional: denies: chills, fever Eyes: denies: eye pain, vision change ENT: as per HPI, congestion. denies: ear pain, throat pain Respiratory: cough (Appears not significant), shortness of breath, wheezing Cardiovascular: denies: chest pain, palpitations Endocrine: no symptoms reported Gastrointestinal: denies: abdominal pain, nausea, diarrhea Genitourinary: denies: urgency, dysuria Musculoskeletal: denies: back pain, arthralgia Skin: denies: rash, lesions Neurological: denies: headache, weakness, paresthesias Psychiatric: denies: anxiety, depression Hematological/Lymphatic: denies: easy bleeding, easy bruising ED Past Medical Hx - Past Medical History Hx Hypertension: No Hx Heart Attack/AMI: No Hx Congestive Heart Failure: No Hx Diabetes: No Hx Deep Vein Thrombosis: No Hx Pulmonary Embolism: No Hx GERD: Yes Hx Liver Disease: No Hx Renal Disease: No Hx Sickle Cell Disease: No Hx Arthritis: No Hx Seizures: No Hx Kidney Stones: No Hx Asthma: Yes Hx COPD: No Hx Tuberculosis: No Hx Dementia: No Hx HIV: No Additional medical history: sinus problems. Prior Intubations x3. Obesity. hypothyroid - Surgical History Hx Coronary Stent: No Hx Open Heart Surgery: No Hx Pacemaker: No Hx Internal Defibrillator: No Hx Cholecystectomy: No Hx Appendectomy: No Hx Breast Surgery: No Additional Surgical History: x4, umbilical hernia repair, sinus surgeries, D&C. thyroid removal. tubligation - Social History Smoking Status: Never Smoker - Medications Home Medications: Home Medications Medication Instructions Recorded Confirmed Last Taken Type AtorvaSTATin [Lipitor] 40 mg PO QHS 01/12/20 04/23/20 Unknown History Levothyroxine [Synthroid] 25 mcg PO QDAY 02/24/20 04/23/20 Unknown History Ascorbic Acid [Vitamin C] 04/23/20 Unknown History Cinnamon 04/23/20 Unknown History Diphenoxylate/Atropine [Lomotil] 1 tab PO Q6H PRN #14 tablet 04/23/20 Unknown Rx Ergocalciferol(Vitamin D2)(Nf) 04/23/20 Unknown History [Vitamin D (Nf)] Vitamin E (Dl,Tocopheryl Acet) 04/23/20 Unknown History [Vitamin E] metroNIDAZOLE [Flagyl TAB] 500 mg PO Q12H #14 tablet 04/23/20 Unknown Rx Cetirizine HCl/Pseudoephedrine 1 each PO BID PRN #20 tab.er.12h 05/03/20 Unknown Rx [Zyrtec-D Tablet] Benzonatate [Tessalon Perles] 100 mg PO Q8HR #30 capsule 05/16/20 Unknown Rx Prednisone [predniSONE 10 mg 10 mg PO .TAPER #21 tab.ds.pk 05/16/20 Unknown Rx (6-Day Pack, 21 Tabs)] Prednisone [predniSONE 10 mg 10 mg PO .TAPER #1 tab.ds.pk 06/14/20 Unknown Rx (6-Day Pack, 21 Tabs)] ALBUTEROL NEB's [Proventil 0.083% 2.5 mg IH TID PRN #1 box 06/24/20 Unknown Rx NEBS] Albuterol Sulfate [Proair 1 - 2 puff IH Q4HR PRN #1 06/24/20 Unknown Rx Digihaler] aer.pw.bas Sulfamethoxazole/Trimethoprim 1 each PO BID #20 tablet 06/24/20 Unknown Rx [Bactrim DS TAB] ALBUTEROL NEB's [Proventil 0.083% 2.5 mg IH Q6HRT PRN #1 box 07/18/20 Unknown Rx NEBS] Albuterol Sulfate [Albuterol 0.63% 0.63 mg IH Q4HR PRN #2 ml 08/23/20 Unknown Rx NEBS] Albuterol Sulfate [Proair 90 mcg IH Q4HR PRN #2 aer.pow.ba 08/23/20 Unknown Rx Respiclick] Ipratropium (Nf) [Atrovent HFA 2 puff IH Q6HR PRN #1 inha 08/23/20 Unknown Rx 17MCG/PUFF] ALBUTEROL NEB's [Proventil 0.083% 2.5 mg IH TID PRN #1 box 09/16/20 Unknown Rx NEBS] Ipratropium [Atrovent] 0.5 mg IH Q8HRT #1 box 09/16/20 Unknown Rx predniSONE [Deltasone] 40 mg PO QDAY #10 tab 09/16/20 Unknown Rx Famotidine [Pepcid] 20 mg PO BID #20 tablet 10/08/20 Unknown Rx Ondansetron [Zofran Odt] 4 mg PO Q8HR PRN #15 tab.rapdis 10/08/20 Unknown Rx predniSONE [Deltasone] 40 mg PO QDAY 4 Days tab 10/08/20 Unknown Rx Ipratropium [Atrovent] 0.5 mg IH Q4HWA #1 box 10/24/20 Unknown Rx Prednisone [predniSONE 10 mg 10 mg PO .TAPER #1 tab.ds.pk 10/24/20 Unknown Rx (6-Day Pack, 21 Tabs)] levoFLOXacin [Levaquin TAB] 500 mg PO QDAY #7 tablet 10/24/20 Unknown Rx ALBUTEROL NEB's [Proventil 0.083% 3 ml IH Q6H PRN 30 Days #75 ml 01/11/21 Unknown Rx NEBS] Fluticasone/Salmeterol [Advair 1 puff IH BID #1 01/11/21 Unknown Rx Diskus 500-50 mcg] Ipratropium 0.06% [Atrovent] 2 spray NS Q8HR #1 bottle 01/11/21 Unknown Rx Ipratropium [Atrovent NEB] 0.5 mg IH Q4HR #2 ml 01/11/21 Unknown Rx levoFLOXacin [Levaquin TAB] 500 mg PO Q24HR #7 tablet 01/11/21 Unknown Rx predniSONE [Deltasone] 20 mg PO QDAY #20 tab 01/11/21 Unknown Rx ED Physical Exam - General Limitations: Physical Limitation General appearance: alert, in no apparent distress, obese - Head Head exam: Present: atraumatic, normocephalic - Eye Eye exam: Present: normal appearance. Absent: scleral icterus - ENT ENT exam: Present: mucous membranes moist - Neck Neck exam: Present: normal inspection - Respiratory Respiratory exam: Present: normal lung sounds bilaterally, wheezes, decreased breath sounds, prolonged expiratory (Mildly). Absent: respiratory distress, chest wall tenderness, accessory muscle use - Cardiovascular Cardiovascular Exam: Present: regular rate, normal rhythm. Absent: systolic murmur, diastolic murmur, rubs, gallop - GI/Abdominal GI/Abdominal exam: Present: soft, normal bowel sounds. Absent: distended, tenderness, guarding, rebound - Extremities Exam Extremities exam: Present: normal inspection. Absent: pedal edema, joint swell ing, calf tenderness - Back Exam Back exam: Present: normal inspection - Neurological Exam Neurological exam: Present: alert, oriented X3, CN II-XII intact. Absent: motor sensory deficit - Psychiatric Psychiatric exam: Present: normal affect, normal mood - Skin Skin exam: Present: warm, dry, intact, normal color. Absent: rash ED Course Vital Signs 01/11/21 01/11/21 01/11/21 05:36 05:40 06:25 Temperature 98.4 F 98.4 F Pulse Rate 95 H 95 H 89 Pulse Rate [ Bilateral] Respiratory 18 20 20 Rate Respiratory Rate [Bilateral ] Blood Pressure 133/94 133/94 O2 Sat by Pulse 95 95 100 Oximetry 01/11/21 01/11/21 06:50 09:00 Temperature Pulse Rate Pulse Rate [ 77 83 Bilateral] Respiratory Rate Respiratory 20 17 Rate [Bilateral ] Blood Pressure O2 Sat by Pulse Oximetry - Reevaluation(s) Reevaluation #1: Improved but still persistent wheezing. Albuterol continuous neb ordered. 01/11/21 08:15 Reevaluation #2: Wheezing resolved. Discussed the patient's hyperglycemia with her. She has been taking 20 mg of prednisone daily last dose was Saturday a.m. I am going to increase her prednisone dose to 40 and add Metformin. We will continue her Levaquin. She follows up with Dr. 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 01/11/21 09:34 ED Medical Decision Making - Lab Data Result diagrams: 01/11/21 05:53 01/11/21 05:53 Laboratory Results - last 24 hr 01/11/21 05:53 WBC 10.4 RBC 4.59 Hgb 12.6 Hct 38.4 MCV 84 MCH 28 MCHC 33 RDW 15.5 H Plt Count 223 Lymph % (Auto) 18.0 [place] % (Auto) 9.2 H Eos % (Auto) 7.3 H Baso % (Auto) 0.6 Lymph # (Auto) 1.9 [place] # (Auto) 1.0 H Eos # (Auto) 0.8 H Baso # (Auto) 0.1 Seg Neutrophils % 64.9 Seg Neutrophils # 6.7 Laboratory Results - last 24 hr 01/11/21 01/11/21 05:53 05:53 WBC 10.4 RBC 4.59 Hgb 12.6 Hct 38.4 MCV 84 MCH 28 MCHC 33 RDW 15.5 H Plt Count 223 Lymph % (Auto) 18.0 [place] % (Auto) 9.2 H Eos % (Auto) 7.3 H Baso % (Auto) 0.6 Lymph # (Auto) 1.9 [place] # (Auto) 1.0 H Eos # (Auto) 0.8 H Baso # (Auto) 0.1 Seg Neutrophils % 64.9 Seg Neutrophils # 6.7 Sodium 137 Potassium 4.5 Chloride 104.3 Carbon Dioxide 24 Anion Gap 13 BUN 11 Creatinine 1.0 Estimated GFR > 60 BUN/Creatinine Ratio 11 Glucose 181 H Calcium 8.6 Total Bilirubin 0.30 AST 39 ALT 24 Alkaline Phosphatase 59 Troponin T < 0.010 Total Protein 6.1 L Albumin 4.1 Albumin/Globulin Ratio 2.1 - EKG Data -: EKG Interpreted by Me EKG shows normal: sinus rhythm, axis, intervals, QRS complexes, ST-T waves Rate: normal - EKG Data Interpretation: nonspecific ST-T wave eli (J-point elevation consistent with early repolarization pattern slight intraventricular conduction delay) - Radiology Data IMPRESSION: 1. No acute findings. Signer Name: Fan Singh MD Signed: 01/11/2021 6:28 AM Critical care attestation.: If time is entered above; I have spent that time in minutes in the direct care of this critically ill patient, excluding procedure time. ED Disposition Clinical Impression: Acute exacerbation of COPD with asthma, Acute sinusitis Disposition: TO HOME OR SELFCARE Is pt being admited?: No Does the pt Need Aspirin: No Condition: Stable Instructions: Asthma (ED), Chronic Obstructive Pulmonary Disease, [id number], Sinusitis, Adult Additional Instructions: Follow-up with your irrigation installation specialist. Rx as directed. Return any acute change or worsening symptoms. We will increase her prednisone dose to 40. See pulmonary concerning taper schedule. Prescriptions: Fluticasone/Salmeterol [Advair Diskus 500-50 mcg] 1 puff IH BID #1 Ipratropium 0.06% [Atrovent] 2 spray NS Q8HR #1 bottle Ipratropium [Atrovent NEB] 0.5 mg IH Q4HR #2 ml predniSONE [Deltasone] 20 mg PO QDAY #20 tab levoFLOXacin [Levaquin TAB] 500 mg PO Q24HR #7 tablet ALBUTEROL NEB's [Proventil 0.083% NEBS] 3 ml IH Q6H PRN 30 Days #75 ml PRN Reason: Wheezing Referrals: PRIMARY CARE, [Primary Care Provider] - 3-5 Days PARKER BROCK MD [Staff Physician] - 3-5 Days Time of Disposition: 09:41
[2021-01-11] MEDS ORDERED: ALBUTEROL 2.5 MG/3 ML NEBU IH ONE (08:13)
[2021-01-11 09:59] VITALS: BP 121/80
--- NOTE | 2021-01-11 12:12 | Electrocardiograph Report ---
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
== END 2021-01-11 10:31 | disposition home or self-care (01) ==
LOC: ED 05:33
DX: J44.1 Chronic obstructive pulmonary disease with (acute) exacerbation (principal); J01.90 Acute sinusitis, unspecified; K21.9 Gastro-esophageal reflux disease without esophagitis; Z79.899 Other long term (current) drug therapy; Z88.0 Allergy status to penicillin; Z88.4 Allergy status to anesthetic agent; Z88.6 Allergy status to analgesic agent; Z88.8 Allergy status to other drugs, medicaments and biological substances
CPT/HCPCS: 36415; 71045; 80053; 84484; 85025; 93005; 94640; 94644; 96365; 96366; 96368; 96375; 99284; J1956; J2930; J3475; J7040

== ENCOUNTER 2021-05-10 17:20 | Emergency (ER) | payer MEDICARE ==
[2021-05-10] MEDS ORDERED: IPRATROPIUM 0.02% NEBU 2.5 ML IH ONE (17:41)
[2021-05-10] MEDS ORDERED: methylPREDNISolone Sod Succinate 125 MG/2 ML INJ IV ONE (17:41)
[2021-05-10] MEDS ORDERED: ALBUTEROL 2.5 MG/3 ML NEBU IH ONE (17:41)
--- NOTE | 2021-05-10 18:19 | Emergency Department Report ---
ED Asthma HPI - General Chief Complaint: Adult Asthma Stated Complaint: CHRONIC ASTHMA Time Seen by Provider: 05/10/21 17:41 Source: patient Mode of arrival: Wheelchair Limitations: No Limitations - History of Present Illness Initial Comments: Patient is a 50-year-old female presents emergency room complaints of an asthma exacerbation that began this morning. She states that she did 2 nebulizer treatments at home but continued to have difficulty breathing. She has associated shortness of breath and wheezing. She denies any coughing, fever, nausea, vomiting, diarrhea, chest pain. She states it has been several months since she sat to be admitted for her asthma. She states that she has been intubated 3 times for her asthma the last time was in 2005. Past medical history of GERD and hyperlipidemia. Patient has multiple medication allergies which are charted. She has never been a smoker. - Related Data Home Medications Medication Instructions Recorded Confirmed Last Taken AtorvaSTATin [Lipitor] 40 mg PO QHS 01/12/20 04/23/20 Unknown Levothyroxine [Synthroid] 25 mcg PO QDAY 02/24/20 04/23/20 Unknown Ascorbic Acid [Vitamin C] 04/23/20 Unknown Cinnamon 04/23/20 Unknown Ergocalciferol(Vitamin D2)(Nf) 04/23/20 Unknown [Vitamin D (Nf)] Vitamin E (Dl,Tocopheryl Acet) 04/23/20 Unknown [Vitamin E] Previous Rx's Medication Instructions Recorded Last Taken Type Diphenoxylate/Atropine [Lomotil] 1 tab PO Q6H PRN #14 tablet 04/23/20 Unknown Rx metroNIDAZOLE [Flagyl TAB] 500 mg PO Q12H #14 tablet 04/23/20 Unknown Rx Cetirizine HCl/Pseudoephedrine 1 each PO BID PRN #20 tab.er.12h 05/03/20 Unknown Rx [Zyrtec-D Tablet] Benzonatate [Tessalon Perles] 100 mg PO Q8HR #30 capsule 05/16/20 Unknown Rx Prednisone [predniSONE 10 mg 10 mg PO .TAPER #21 tab.ds.pk 05/16/20 Unknown Rx (6-Day Pack, 21 Tabs)] Prednisone [predniSONE 10 mg 10 mg PO .TAPER #1 tab.ds.pk 06/14/20 Unknown Rx (6-Day Pack, 21 Tabs)] ALBUTEROL NEB's [Proventil 0.083% 2.5 mg IH TID PRN #1 box 06/24/20 Unknown Rx NEBS] Albuterol Sulfate [Proair 1 - 2 puff IH Q4HR PRN #1 06/24/20 Unknown Rx Digihaler] aer.pw.bas Sulfamethoxazole/Trimethoprim 1 each PO BID #20 tablet 06/24/20 Unknown Rx [Bactrim DS TAB] ALBUTEROL NEB's [Proventil 0.083% 2.5 mg IH Q6HRT PRN #1 box 07/18/20 Unknown Rx NEBS] Albuterol Sulfate [Albuterol 0.63% 0.63 mg IH Q4HR PRN #2 ml 08/23/20 Unknown Rx NEBS] Albuterol Sulfate [Proair 90 mcg IH Q4HR PRN #2 aer.pow.ba 08/23/20 Unknown Rx Respiclick] Ipratropium (Nf) [Atrovent HFA 2 puff IH Q6HR PRN #1 inha 08/23/20 Unknown Rx 17MCG/PUFF] ALBUTEROL NEB's [Proventil 0.083% 2.5 mg IH TID PRN #1 box 09/16/20 Unknown Rx NEBS] Ipratropium [Atrovent] 0.5 mg IH Q8HRT #1 box 09/16/20 Unknown Rx predniSONE [Deltasone] 40 mg PO QDAY #10 tab 09/16/20 Unknown Rx Famotidine [Pepcid] 20 mg PO BID #20 tablet 10/08/20 Unknown Rx Ondansetron [Zofran Odt] 4 mg PO Q8HR PRN #15 tab.rapdis 10/08/20 Unknown Rx predniSONE [Deltasone] 40 mg PO QDAY 4 Days tab 10/08/20 Unknown Rx Ipratropium [Atrovent] 0.5 mg IH Q4HWA #1 box 10/24/20 Unknown Rx Prednisone [predniSONE 10 mg 10 mg PO .TAPER #1 tab.ds.pk 10/24/20 Unknown Rx (6-Day Pack, 21 Tabs)] levoFLOXacin [Levaquin TAB] 500 mg PO QDAY #7 tablet 10/24/20 Unknown Rx ALBUTEROL NEB's [Proventil 0.083% 3 ml IH Q6H PRN 30 Days #75 ml 01/11/21 Unknown Rx NEBS] Fluticasone/Salmeterol [Advair 1 puff IH BID #1 01/11/21 Unknown Rx Diskus 500-50 mcg] Ipratropium 0.06% [Atrovent] 2 spray NS Q8HR #1 bottle 01/11/21 Unknown Rx Ipratropium [Atrovent NEB] 0.5 mg IH Q4HR #2 ml 01/11/21 Unknown Rx levoFLOXacin [Levaquin TAB] 500 mg PO Q24HR #7 tablet 01/11/21 Unknown Rx predniSONE [Deltasone] 20 mg PO QDAY #20 tab 01/11/21 Unknown Rx predniSONE [Deltasone] 40 mg PO DAILY 5 Days #10 tablet 05/10/21 Unknown Rx Allergies Allergy/AdvReac Type Severity Reaction Status Date / Time aspirin Allergy Anaphylaxis Verified 05/10/21 17:25 azithromycin [From Zithromax] Allergy Anaphylaxis Verified 05/10/21 17:25 doxycycline Allergy Rash Verified 05/10/21 17:25 ketorolac tromethamine Allergy Anaphylaxis Verified 05/10/21 17:25 [From Toradol] Latex, Natural Rubber Allergy Angioedema Verified 05/10/21 17:25 morphine Allergy Shortness Verified 05/10/21 17:25 of Breath NSAIDS (Non-Steroidal Allergy Anaphylaxis Verified 05/10/21 17:25 Anti-Inflamma Penicillins Allergy Hives Verified 05/10/21 17:25 ED Review of Systems ROS: Stated complaint: CHRONIC ASTHMA Other details as noted in HPI Comment: All other systems reviewed and negative ED Past Medical Hx - Past Medical History Hx Hypertension: No Hx Heart Attack/AMI: No Hx Congestive Heart Failure: No Hx Diabetes: No Hx Deep Vein Thrombosis: No Hx Pulmonary Embolism: No Hx GERD: Yes Hx Liver Disease: No Hx Renal Disease: No Hx Sickle Cell Disease: No Hx Arthritis: No Hx Seizures: No Hx Kidney Stones: No Hx Asthma: Yes Hx COPD: No Hx Tuberculosis: No Hx Dementia: No Hx HIV: No Additional medical history: sinus problems. Prior Intubations x3. Obesity. hypothyroid - Surgical History Hx Coronary Stent: No Hx Open Heart Surgery: No Hx Pacemaker: No Hx Internal Defibrillator: No Hx Cholecystectomy: No Hx Appendectomy: No Hx Breast Surgery: No Additional Surgical History: x4, umbilical hernia repair, sinus surgeries, D&C. thyroid removal. tubligation - Social History Smoking Status: Never Smoker - Medications Home Medications: Home Medications Medication Instructions Recorded Confirmed Last Taken Type AtorvaSTATin [Lipitor] 40 mg PO QHS 01/12/20 04/23/20 Unknown History Levothyroxine [Synthroid] 25 mcg PO QDAY 02/24/20 04/23/20 Unknown History Ascorbic Acid [Vitamin C] 04/23/20 Unknown History Cinnamon 04/23/20 Unknown History Diphenoxylate/Atropine [Lomotil] 1 tab PO Q6H PRN #14 tablet 04/23/20 Unknown Rx Ergocalciferol(Vitamin D2)(Nf) 04/23/20 Unknown History [Vitamin D (Nf)] Vitamin E (Dl,Tocopheryl Acet) 04/23/20 Unknown History [Vitamin E] metroNIDAZOLE [Flagyl TAB] 500 mg PO Q12H #14 tablet 04/23/20 Unknown Rx Cetirizine HCl/Pseudoephedrine 1 each PO BID PRN #20 tab.er.12h 05/03/20 Unknown Rx [Zyrtec-D Tablet] Benzonatate [Tessalon Perles] 100 mg PO Q8HR #30 capsule 05/16/20 Unknown Rx Prednisone [predniSONE 10 mg 10 mg PO .TAPER #21 tab.ds.pk 05/16/20 Unknown Rx (6-Day Pack, 21 Tabs)] Prednisone [predniSONE 10 mg 10 mg PO .TAPER #1 tab.ds.pk 06/14/20 Unknown Rx (6-Day Pack, 21 Tabs)] ALBUTEROL NEB's [Proventil 0.083% 2.5 mg IH TID PRN #1 box 06/24/20 Unknown Rx NEBS] Albuterol Sulfate [Proair 1 - 2 puff IH Q4HR PRN #1 06/24/20 Unknown Rx Digihaler] aer.pw.bas Sulfamethoxazole/Trimethoprim 1 each PO BID #20 tablet 06/24/20 Unknown Rx [Bactrim DS TAB] ALBUTEROL NEB's [Proventil 0.083% 2.5 mg IH Q6HRT PRN #1 box 07/18/20 Unknown Rx NEBS] Albuterol Sulfate [Albuterol 0.63% 0.63 mg IH Q4HR PRN #2 ml 08/23/20 Unknown Rx NEBS] Albuterol Sulfate [Proair 90 mcg IH Q4HR PRN #2 aer.pow.ba 08/23/20 Unknown Rx Respiclick] Ipratropium (Nf) [Atrovent HFA 2 puff IH Q6HR PRN #1 inha 08/23/20 Unknown Rx 17MCG/PUFF] ALBUTEROL NEB's [Proventil 0.083% 2.5 mg IH TID PRN #1 box 09/16/20 Unknown Rx NEBS] Ipratropium [Atrovent] 0.5 mg IH Q8HRT #1 box 09/16/20 Unknown Rx predniSONE [Deltasone] 40 mg PO QDAY #10 tab 09/16/20 Unknown Rx Famotidine [Pepcid] 20 mg PO BID #20 tablet 10/08/20 Unknown Rx Ondansetron [Zofran Odt] 4 mg PO Q8HR PRN #15 tab.rapdis 10/08/20 Unknown Rx predniSONE [Deltasone] 40 mg PO QDAY 4 Days tab 10/08/20 Unknown Rx Ipratropium [Atrovent] 0.5 mg IH Q4HWA #1 box 10/24/20 Unknown Rx Prednisone [predniSONE 10 mg 10 mg PO .TAPER #1 tab.ds.pk 10/24/20 Unknown Rx (6-Day Pack, 21 Tabs)] levoFLOXacin [Levaquin TAB] 500 mg PO QDAY #7 tablet 10/24/20 Unknown Rx ALBUTEROL NEB's [Proventil 0.083% 3 ml IH Q6H PRN 30 Days #75 ml 01/11/21 Unknown Rx NEBS] Fluticasone/Salmeterol [Advair 1 puff IH BID #1 01/11/21 Unknown Rx Diskus 500-50 mcg] Ipratropium 0.06% [Atrovent] 2 spray NS Q8HR #1 bottle 01/11/21 Unknown Rx Ipratropium [Atrovent NEB] 0.5 mg IH Q4HR #2 ml 01/11/21 Unknown Rx levoFLOXacin [Levaquin TAB] 500 mg PO Q24HR #7 tablet 01/11/21 Unknown Rx predniSONE [Deltasone] 20 mg PO QDAY #20 tab 01/11/21 Unknown Rx predniSONE [Deltasone] 40 mg PO DAILY 5 Days #10 tablet 05/10/21 Unknown Rx ED Physical Exam - General Limitations: No Limitations General appearance: alert - Head Head exam: Present: atraumatic, normocephalic - Eye Eye exam: Present: normal appearance - ENT ENT exam: Present: mucous membranes moist - Respiratory Respiratory exam: Present: wheezes, decreased breath sounds, prolonged expiratory, other (speaking in full sentences ). Absent: rales, rhonchi, stridor, chest wall tenderness, accessory muscle use - Cardiovascular Cardiovascular Exam: Present: regular rate, normal rhythm, normal heart sounds. Absent: systolic murmur, diastolic murmur, rubs, gallop - Neurological Exam Neurological exam: Present: alert, oriented X3 - Psychiatric Psychiatric exam: Present: normal affect, normal mood - Skin Skin exam: Present: warm, dry, intact ED Course Vital Signs 05/10/21 05/10/21 17:30 22:00 Temperature 98.6 F Pulse Rate 91 H 69 Respiratory 20 16 Rate Blood Pressure 140/74 Blood Pressure 112/59 [Right] O2 Sat by Pulse 96 96 Oximetry - Reevaluation(s) Reevaluation #1: 05/10/21 21:32 On reexamination patient is feeling much better, she has good air movement, wheezing has completely resolved ED Medical Decision Making - Lab Data Vital Signs 05/10/21 05/10/21 17:30 22:00 Temperature 98.6 F Pulse Rate 91 H 69 Respiratory 20 16 Rate Blood Pressure 140/74 Blood Pressure 112/59 [Right] O2 Sat by Pulse 96 96 Oximetry - Medical Decision Making Patient is a 50-year-old female presents emergency room complaints of an asthma exacerbation that began this morning. She states that she did 2 nebulizer treatments at home but continued to have difficulty breathing. She has associated shortness of breath and wheezing. She denies any coughing, fever, nausea, vomiting, diarrhea, chest pain. She states it has been several months s douglas she sat to be admitted for her asthma. She states that she has been intubated 3 times for her asthma the last time was in 2005. Past medical history of GERD and hyperlipidemia. Patient has multiple medication allergies which are charted. She has never been a smoker. Vitals are stable, no hypoxia. On exam: Decreased breath sounds throughout, wheezing. Patient given continuous neb treatment, Solu-Medrol, magnesium, on reexamination wheezing has resolved, patient has good air movement and she is feeling much better. She has no clinical signs of bacterial pneumonia or bacterial bronchitis at this time. advised pt Please take medication as prescribed. Please continue to do your nebulizer treatments every 4 hours as needed for shortness of breath/wheezing. Follow-up with your primary care doctor for reexamination. Return to emergency room for any new or worsening symptoms. Critical care attestation.: If time is entered above; I have spent that time in minutes in the direct care of this critically ill patient, excluding procedure time. ED Disposition Clinical Impression: Asthma exacerbation Qualifiers: Asthma severity: unspecified severity Asthma persistence: unspecified Qualified Code(s): J45.901 - Unspecified asthma with (acute) exacerbation Disposition: - TO HOME OR SELFCARE Is pt being admited?: No Does the pt Need Aspirin: No Condition: Stable Instructions: Asthma, Adult Additional Instructions: Please take medication as prescribed. Please continue to do your nebulizer treatments every 4 hours as needed for shortness of breath/wheezing. Follow-up with your primary care doctor for reexamination. Return to emergency room for any new or worsening symptoms. Prescriptions: predniSONE [Deltasone] 40 mg PO DAILY 5 Days #10 tablet Referrals: PRIMARY CAREMD [Primary Care Provider] - 2-3 Days Time of Disposition: 21:33 Print Language: SWISS
[2021-05-10] MEDS ORDERED: MAGNESIUM SULFATE 2 GM/50 ML BAG IV ONE (19:39)
[2021-05-10] MEDS ORDERED: SODIUM CHLORIDE 0.9% 1000 ML 1,000 ML IV ONE (19:54)
[2021-05-10] MEDS ORDERED: methylPREDNISolone Sod Succinate 125 MG/2 ML INJ ONE (20:13)
[2021-05-10 22:19] VITALS: BP 112/59
== END 2021-05-10 22:00 | disposition home or self-care (01) ==
LOC: ED 17:20
DX: J45.901 Unspecified asthma with (acute) exacerbation (principal); Z98.890 Other specified postprocedural states; Z79.899 Other long term (current) drug therapy; Z88.0 Allergy status to penicillin; Z88.6 Allergy status to analgesic agent; Z88.8 Allergy status to other drugs, medicaments and biological substances
CPT/HCPCS: 94640; 96365; 96375; 99283; J2930; J7030; 94644

== ENCOUNTER 2021-08-24 13:01 | Emergency (ER) | payer MEDICARE ==
--- NOTE | 2021-08-24 14:23 | XRay Report ---
XR chest routine 2V INDICATION / CLINICAL INFORMATION: chest pain COMPARISON: 01/11/2021 FINDINGS: SUPPORT DEVICES: None. HEART / MEDIASTINUM: No significant abnormality. LUNGS / PLEURA: Peripheral lucency involving the left mid and lower lung zone. No definite pneumothor ax. Costophrenic sulci are sharp. No airspace disease. ADDITIONAL FINDINGS: No significant additional findings. IMPRESSION: 1. Peripheral lucency involving the left mid and lower lung zone, most consistent with a skinfold. N o acute findings. Signer Name: Shaun Griffith MD Signed: 08/24/2021 2:18 PM Workstation Name: [id number]
[2021-08-24 14:40] LABS: Alanine Aminotransferase 22 units/L (7-56); Albumin 4.1 g/dL (3.9-5); BUN/Creatinine Ratio 11; Blood Urea Nitrogen 9 mg/dL (7-17); Calcium 8.7 mg/dL (8.4-10.2); Hemolysis Index 8
[2021-08-24 14:48] LABS: Basophils % (Auto) 0.2 % (0.0-1.8); Eosinophils # (Auto) 0.9 K/mm3 (0.0-0.4); Lymphocytes # (Auto) 1.9 K/mm3 (1.2-5.4); Lymphocytes % (Auto) 20.8 % (13.4-35.0); Mean Corpuscular HGB Conc 30 % (30-34); Mean Corpuscular Volume 82 fl (79-97); Monocytes # (Auto) 0.8 K/mm3 (0.0-0.8); Monocytes % (Auto) 8.7 % (0.0-7.3); Platelet Count 238 K/mm3 (140-440); Red Blood Count 4.84 M/mm3 (3.65-5.03); Red Cell Distribution Width 16.1 % (13.2-15.2)
[2021-08-24 14:59] LABS: Hematocrit 39.7 % (30.3-42.9)
--- NOTE | 2021-08-24 16:22 | Emergency Department Report ---
ED Chest Pain HPI - General Chief Complaint: Chest Pain Stated Complaint: CHEST PAIN Time Seen by Provider: 08/24/21 13:29 Source: patient Mode of arrival: Ambulatory Limitations: No Limitations - History of Present Illness Initial Comments: Patient is a 51-year-old female who presents with chest pain. Chest pain has been going on for a week is a pressure type pain that is sharp and pleuritic in nature. The pain is moderate. Laying down makes it worse sitting up makes it better. Patient denies having any nausea or vomiting any trauma to her chest pain she states she is never smoked she has a history of asthma. - Related Data Home Medications Medication Instructions Recorded Confirmed Last Taken AtorvaSTATin [Lipitor] 40 mg PO QHS 01/12/20 04/23/20 Unknown Levothyroxine [Synthroid] 25 mcg PO QDAY 02/24/20 04/23/20 Unknown Ascorbic Acid [Vitamin C] 04/23/20 Unknown Cinnamon 04/23/20 Unknown Ergocalciferol(Vitamin D2)(Nf) 04/23/20 Unknown [Vitamin D (Nf)] Vitamin E (Dl,Tocopheryl Acet) 04/23/20 Unknown [Vitamin E] Previous Rx's Medication Instructions Recorded Last Taken Type Diphenoxylate/Atropine [Lomotil] 1 tab PO Q6H PRN #14 tablet 04/23/20 Unknown Rx metroNIDAZOLE [Flagyl TAB] 500 mg PO Q12H #14 tablet 04/23/20 Unknown Rx Cetirizine HCl/Pseudoephedrine 1 each PO BID PRN #20 tab.er.12h 05/03/20 Unknown Rx [Zyrtec-D Tablet] Benzonatate [Tessalon Perles] 100 mg PO Q8HR #30 capsule 05/16/20 Unknown Rx Prednisone [predniSONE 10 mg 10 mg PO .TAPER #21 tab.ds.pk 05/16/20 Unknown Rx (6-Day Pack, 21 Tabs)] Prednisone [predniSONE 10 mg 10 mg PO .TAPER #1 tab.ds.pk 06/14/20 Unknown Rx (6-Day Pack, 21 Tabs)] ALBUTEROL NEB's [Proventil 0.083% 2.5 mg IH TID PRN #1 box 06/24/20 Unknown Rx NEBS] Albuterol Sulfate [Proair 1 - 2 puff IH Q4HR PRN #1 06/24/20 Unknown Rx Digihaler] aer.pw.bas Sulfamethoxazole/Trimethoprim 1 each PO BID #20 tablet 06/24/20 Unknown Rx [Bactrim DS TAB] ALBUTEROL NEB's [Proventil 0.083% 2.5 mg IH Q6HRT PRN #1 box 07/18/20 Unknown Rx NEBS] Albuterol Sulfate [Albuterol 0.63% 0.63 mg IH Q4HR PRN #2 ml 08/23/20 Unknown Rx NEBS] Albuterol Sulfate [Proair 90 mcg IH Q4HR PRN #2 aer.pow.ba 08/23/20 Unknown Rx Respiclick] Ipratropium (Nf) [Atrovent HFA 2 puff IH Q6HR PRN #1 inha 08/23/20 Unknown Rx 17MCG/PUFF] ALBUTEROL NEB's [Proventil 0.083% 2.5 mg IH TID PRN #1 box 09/16/20 Unknown Rx NEBS] Ipratropium [Atrovent] 0.5 mg IH Q8HRT #1 box 09/16/20 Unknown Rx predniSONE [Deltasone] 40 mg PO QDAY #10 tab 09/16/20 Unknown Rx Famotidine [Pepcid] 20 mg PO BID #20 tablet 10/08/20 Unknown Rx Ondansetron [Zofran Odt] 4 mg PO Q8HR PRN #15 tab.rapdis 10/08/20 Unknown Rx predniSONE [Deltasone] 40 mg PO QDAY 4 Days tab 10/08/20 Unknown Rx Ipratropium [Atrovent] 0.5 mg IH Q4HWA #1 box 10/24/20 Unknown Rx Prednisone [predniSONE 10 mg 10 mg PO .TAPER #1 tab.ds.pk 10/24/20 Unknown Rx (6-Day Pack, 21 Tabs)] levoFLOXacin [Levaquin TAB] 500 mg PO QDAY #7 tablet 10/24/20 Unknown Rx ALBUTEROL NEB's [Proventil 0.083% 3 ml IH Q6H PRN 30 Days #75 ml 01/11/21 Unknown Rx NEBS] Fluticasone/Salmeterol [Advair 1 puff IH BID #1 01/11/21 Unknown Rx Diskus 500-50 mcg] Ipratropium 0.06% [Atrovent] 2 spray NS Q8HR #1 bottle 01/11/21 Unknown Rx Ipratropium [Atrovent NEB] 0.5 mg IH Q4HR #2 ml 01/11/21 Unknown Rx levoFLOXacin [Levaquin TAB] 500 mg PO Q24HR #7 tablet 01/11/21 Unknown Rx predniSONE [Deltasone] 20 mg PO QDAY #20 tab 01/11/21 Unknown Rx predniSONE [Deltasone] 40 mg PO DAILY 5 Days #10 tablet 05/10/21 Unknown Rx Allergies Allergy/AdvReac Type Severity Reaction Status Date / Time aspirin Allergy Anaphylaxis Verified 08/24/21 13:03 azithromycin [From Zithromax] Allergy Anaphylaxis Verified 08/24/21 13:03 doxycycline Allergy Rash Verified 08/24/21 13:03 ketorolac tromethamine Allergy Anaphylaxis Verified 08/24/21 13:03 [From Toradol] Latex, Natural Rubber Allergy Angioedema Verified 08/24/21 13:03 morphine Allergy Shortness Verified 08/24/21 13:03 of Breath NSAIDS (Non-Steroidal Allergy Anaphylaxis Verified 08/24/21 13:03 Anti-Inflamma Penicillins Allergy Hives Verified 08/24/21 13:03 Heart Score - HEART Score History: Slightly suspicious EKG: Normal Age: 45-65 Risk factors: No known risk factors Troponin: < normal limit HEART Score: 1 - EKG Read Time Time EKG Completed: 13:15 EKG Read Time: 13:15 ED Review of Systems ROS: Stated complaint: CHEST PAIN Other details as noted in HPI Constitutional: denies: chills, fever Eyes: denies: eye pain, eye discharge, vision change ENT: denies: ear pain, throat pain Respiratory: denies: cough, shortness of breath, wheezing Cardiovascular: chest pain. denies: palpitations Endocrine: no symptoms reported Gastrointestinal: denies: abdominal pain, nausea, diarrhea Genitourinary: denies: urgency, dysuria, discharge Musculoskeletal: denies: back pain, joint swelling, arthralgia Skin: denies: rash, lesions Neurological: denies: headache, weakness, paresthesias Psychiatric: denies: anxiety, depression Hematological/Lymphatic: denies: easy bleeding, easy bruising ED Past Medical Hx - Past Medical History Hx Hypertension: No Hx Heart Attack/AMI: No Hx Congestive Heart Failure: No Hx Diabetes: No Hx Deep Vein Thrombosis: No Hx Pulmonary Embolism: No Hx GERD: Yes Hx Liver Disease: No Hx Renal Disease: No Hx Sickle Cell Disease: No Hx Arthritis: No Hx Seizures: No Hx Kidney Stones: No Hx Asthma: Yes Hx COPD: No Hx Tuberculosis: No Hx Dementia: No Hx HIV: No Additional medical history: sinus problems. Prior Intubations x3. Obesity. hypothyroid - Surgical History Hx Coronary Stent: No Hx Open Heart Surgery: No Hx Pacemaker: No Hx Internal Defibrillator: No Hx Cholecystectomy: No Hx Appendectomy: No Hx Breast Surgery: No Additional Surgical History: x4, umbilical hernia repair, sinus surgeries, D&C. thyroid removal. tubligation - Social History Smoking Status: Never Smoker - Medications Home Medications: Home Medications Medication Instructions Recorded Confirmed Last Taken Type AtorvaSTATin [Lipitor] 40 mg PO QHS 01/12/20 04/23/20 Unknown History Levothyroxine [Synthroid] 25 mcg PO QDAY 02/24/20 04/23/20 Unknown History Ascorbic Acid [Vitamin C] 04/23/20 Unknown History Cinnamon 04/23/20 Unknown History Diphenoxylate/Atropine [Lomotil] 1 tab PO Q6H PRN #14 tablet 04/23/20 Unknown Rx Ergocalciferol(Vitamin D2)(Nf) 04/23/20 Unknown History [Vitamin D (Nf)] Vitamin E (Dl,Tocopheryl Acet) 04/23/20 Unknown History [Vitamin E] metroNIDAZOLE [Flagyl TAB] 500 mg PO Q12H #14 tablet 04/23/20 Unknown Rx Cetirizine HCl/Pseudoephedrine 1 each PO BID PRN #20 tab.er.12h 05/03/20 Unknown Rx [Zyrtec-D Tablet] Benzonatate [Tessalon Perles] 100 mg PO Q8HR #30 capsule 05/16/20 Unknown Rx Prednisone [predniSONE 10 mg 10 mg PO .TAPER #21 tab.ds.pk 05/16/20 Unknown Rx (6-Day Pack, 21 Tabs)] Prednisone [predniSONE 10 mg 10 mg PO .TAPER #1 tab.ds.pk 06/14/20 Unknown Rx (6-Day Pack, 21 Tabs)] ALBUTEROL NEB's [Proventil 0.083% 2.5 mg IH TID PRN #1 box 06/24/20 Unknown Rx NEBS] Albuterol Sulfate [Proair 1 - 2 puff IH Q4HR PRN #1 06/24/20 Unknown Rx Digihaler] aer.pw.bas Sulfamethoxazole/Trimethoprim 1 each PO BID #20 tablet 06/24/20 Unknown Rx [Bactrim DS TAB] ALBUTEROL NEB's [Proventil 0.083% 2.5 mg IH Q6HRT PRN #1 box 07/18/20 Unknown Rx NEBS] Albuterol Sulfate [Albuterol 0.63% 0.63 mg IH Q4HR PRN #2 ml 08/23/20 Unknown Rx NEBS] Albuterol Sulfate [Proair 90 mcg IH Q4HR PRN #2 aer.pow.ba 08/23/20 Unknown Rx Respiclick] Ipratropium (Nf) [Atrovent HFA 2 puff IH Q6HR PRN #1 inha 08/23/20 Unknown Rx 17MCG/PUFF] ALBUTEROL NEB's [Proventil 0.083% 2.5 mg IH TID PRN #1 box 09/16/20 Unknown Rx NEBS] Ipratropium [Atrovent] 0.5 mg IH Q8HRT #1 box 09/16/20 Unknown Rx predniSONE [Deltasone] 40 mg PO QDAY #10 tab 09/16/20 Unknown Rx Famotidine [Pepcid] 20 mg PO BID #20 tablet 10/08/20 Unknown Rx Ondansetron [Zofran Odt] 4 mg PO Q8HR PRN #15 tab.rapdis 10/08/20 Unknown Rx predniSONE [Deltasone] 40 mg PO QDAY 4 Days tab 10/08/20 Unknown Rx Ipratropium [Atrovent] 0.5 mg IH Q4HWA #1 box 10/24/20 Unknown Rx Prednisone [predniSONE 10 mg 10 mg PO .TAPER #1 tab.ds.pk 10/24/20 Unknown Rx (6-Day Pack, 21 Tabs)] levoFLOXacin [Levaquin TAB] 500 mg PO QDAY #7 tablet 10/24/20 Unknown Rx ALBUTEROL NEB's [Proventil 0.083% 3 ml IH Q6H PRN 30 Days #75 ml 01/11/21 Unknown Rx NEBS] Fluticasone/Salmeterol [Advair 1 puff IH BID #1 01/11/21 Unknown Rx Diskus 500-50 mcg] Ipratropium 0.06% [Atrovent] 2 spray NS Q8HR #1 bottle 01/11/21 Unknown Rx Ipratropium [Atrovent NEB] 0.5 mg IH Q4HR #2 ml 01/11/21 Unknown Rx levoFLOXacin [Levaquin TAB] 500 mg PO Q24HR #7 tablet 01/11/21 Unknown Rx predniSONE [Deltasone] 20 mg PO QDAY #20 tab 01/11/21 Unknown Rx predniSONE [Deltasone] 40 mg PO DAILY 5 Days #10 tablet 05/10/21 Unknown Rx ED Physical Exam - General Limitations: No Limitations General appearance: alert, in no apparent distress - Head Head exam: Present: atraumatic, normocephalic - Eye Eye exam: Present: normal appearance - ENT ENT exam: Present: mucous membranes moist - Neck Neck exam: Present: normal inspection - Respiratory Respiratory exam: Present: normal lung sounds bilaterally. Absent: respiratory distress - Cardiovascular Cardiovascular Exam: Present: regular rate, normal rhythm, other (chest wall tenderness). Absent: systolic murmur, diastolic murmur, rubs, gallop - GI/Abdominal GI/Abdominal exam: Present: soft, normal bowel sounds - Extremities Exam Extremities exam: Present: normal inspection - Back Exam Back exam: Present: normal inspection - Neurological Exam Neurological exam: Present: alert, oriented X3 - Psychiatric Psychiatric exam: Present: normal affect, normal mood - Skin Skin exam: Present: warm, dry, intact, normal color. Absent: rash ED Course Vital Signs 08/24/21 13:05 Temperature 98.4 F Pulse Rate 89 Respiratory 20 Rate Blood Pressure 128/77 [Left] O2 Sat by Pulse 97 Oximetry TATE score - Tate Score Age > 65: (0) No Aspirin use within the Past 7 Days: (0) No 3 or more CAD Risk Factors: (0) No 2 or more Angina events in past 24 hrs: (1) Yes Known CAD with more than 50% Stenosis: (0) No Elevated Cardiac Markers: (0) No ST Deviation Greater than 0.5mm: (0) No TATE Score: 1 ED Medical Decision Making - Lab Data Result diagrams: 08/24/21 14:02 08/24/21 14:02 Lab Results 08/24/21 08/24/21 Range/Units 14:02 14:02 WBC 9.1 (4.5-11.0) K/mm3 RBC 4.84 (3.65-5.03) M/mm3 Hgb 12.0 (10.1-14.3) gm/dl Hct 39.7 (30.3-42.9) % MCV 82 (79-97) fl MCH 25 L (28-32) pg MCHC 30 (30-34) % RDW 16.1 H (13.2-15.2) % Plt Count 238 (140-440) K/mm3 Lymph % (Auto) 20.8 (13.4-35.0) % [place] % (Auto) 8.7 H (0.0-7.3) % Eos % (Auto) 10.0 H (0.0-4.3) % Baso % (Auto) 0.2 (0.0-1.8) % Lymph # (Auto) 1.9 (1.2-5.4) K/mm3 [place] # (Auto) 0.8 (0.0-0.8) K/mm3 Eos # (Auto) 0.9 H (0.0-0.4) K/mm3 Baso # (Auto) 0.0 (0.0-0.1) K/mm3 Seg Neutrophils % 60.3 (40.0-70.0) % Seg Neutrophils # 5.5 (1.8-7.7) K/mm3 Sodium 140 (137-145) mmol/L Potassium 3.5 L (3.6-5.0) mmol/L Chloride 101.7 (98-107) mmol/L Carbon Dioxide 23 (22-30) mmol/L Anion Gap 19 mmol/L BUN 9 (7-17) mg/dL Creatinine 0.8 (0.6-1.2) mg/dL Estimated GFR > 60 ml/min BUN/Creatinine Ratio 11 % Glucose 159 H (65-100) mg/dL Calcium 8.7 (8.4-10.2) mg/dL Total Bilirubin 0.20 (0.1-1.2) mg/dL AST 16 (5-40) units/L ALT 22 (7-56) units/L Alkaline Phosphatase 71 (35-129) units/L Troponin T < 0.010 (0.00-0.029) ng/mL Total Protein 6.6 (6.3-8.2) g/dL Albumin 4.1 (3.9-5) g/dL Albumin/Globulin Ratio 1.6 % - EKG Data -: EKG Interpreted by Ks - EKG Data 08/24/21 16:25 EKG time 1314 rate 82 normal sinus rhythm no ST segment elevation no T wave inversion impression normal EKG - Radiology Data Radiology results: image reviewed Chest x-ray: Shows no acute cardiopulmonary disease - Medical Decision Making Chief medical diagnosis: Pericarditis Differential medical diagnosis: Non-STEMI, pneumonia, pneumothorax Other 2 troponins blood work EKG I am pain medicine and will reevaluate patient. 17:19 Patient's lab work is unremarkable I will discharge the patient. Critical care attestation.: If time is entered above; I have spent that time in minutes in the direct care of this critically ill patient, excluding procedure time. ED Disposition Clinical Impression: Chest pain Qualifiers: Chest pain type: unspecified Qualified Code(s): R07.9 - Chest pain, unspecified Disposition: 01 HOME / SELF CARE / HOMELESS Is pt being admited?: No Does the pt Need Aspirin: No Condition: Stable Instructions: Nonspecific Chest Pain, Adult Referrals: FRANK SAM MD [Staff Physician] - 3-5 Days DANIEL SAM MD [Referring] - 3-5 Days
[2021-08-24] MEDS ORDERED: ACETAMINOPHEN 500 MG TAB PO ONE (16:26)
[2021-08-24 17:36] VITALS: BP 126/74
--- NOTE | 2021-08-25 09:03 | Electrocardiograph Report ---
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
== END 2021-08-24 17:36 | disposition home or self-care (01) ==
LOC: ED 13:01
DX: R07.89 Other chest pain (principal); Z88.6 Allergy status to analgesic agent; Z88.1 Allergy status to other antibiotic agents; Z88.0 Allergy status to penicillin; Z88.8 Allergy status to other drugs, medicaments and biological substances; Z79.899 Other long term (current) drug therapy
CPT/HCPCS: 36415; 71046; 80053; 84484; 85025; 93005; 99284

== ENCOUNTER 2021-09-19 06:16 | Emergency (ER) | payer MEDICARE ==
[2021-09-19 06:23] VITALS: BP 121/85
--- NOTE | 2021-09-19 06:38 | Emergency Department Report ---
ED Asthma HPI - General Chief Complaint: Adult Asthma Stated Complaint: SOB/ALLERGY Time Seen by Provider: 09/19/21 06:24 Source: patient Mode of arrival: Ambulatory Limitations: No Limitations - History of Present Illness Initial Comments: Patient is 51 years old female with history of asthma. Patient presented to the ER complaining of an asthma attack. Patient stated symptoms started 2 days ago with dry cough, wheezing and shortness of breath. She denied any fever or chills. No chest pain. Patient also denied any nausea or vomiting. Patient stated that she took her albuterol at home but is not improving her symptoms. MD Complaint: "asthma attack", shortness of breath, wheezing -: days(s) (2) Severity: moderate Context: recent URI, allergen exposure Associated Symptoms: dry cough Treatments Prior to Arrival: inhaled bronchodilator - Related Data Current Asthma Therapy: inhaled bronchodilator Home Medications Medication Instructions Recorded Confirmed Last Taken AtorvaSTATin [Lipitor] 40 mg PO QHS 01/12/20 04/23/20 Unknown Levothyroxine [Synthroid] 25 mcg PO QDAY 02/24/20 04/23/20 Unknown Ascorbic Acid [Vitamin C] 04/23/20 Unknown Cinnamon 04/23/20 Unknown Ergocalciferol(Vitamin D2)(Nf) 04/23/20 Unknown [Vitamin D (Nf)] Vitamin E (Dl,Tocopheryl Acet) 04/23/20 Unknown [Vitamin E] Previous Rx's Medication Instructions Recorded Last Taken Type Diphenoxylate/Atropine [Lomotil] 1 tab PO Q6H PRN #14 tablet 04/23/20 Unknown Rx metroNIDAZOLE [Flagyl TAB] 500 mg PO Q12H #14 tablet 04/23/20 Unknown Rx Cetirizine HCl/Pseudoephedrine 1 each PO BID PRN #20 tab.er.12h 05/03/20 Unknown Rx [Zyrtec-D Tablet] Benzonatate [Tessalon Perles] 100 mg PO Q8HR #30 capsule 05/16/20 Unknown Rx Prednisone [predniSONE 10 mg 10 mg PO .TAPER #21 tab.ds.pk 05/16/20 Unknown Rx (6-Day Pack, 21 Tabs)] Prednisone [predniSONE 10 mg 10 mg PO .TAPER #1 tab.ds.pk 06/14/20 Unknown Rx (6-Day Pack, 21 Tabs)] ALBUTEROL NEB's [Proventil 0.083% 2.5 mg IH TID PRN #1 box 06/24/20 Unknown Rx NEBS] Albuterol Sulfate [Proair 1 - 2 puff IH Q4HR PRN #1 06/24/20 Unknown Rx Digihaler] aer.pw.bas Sulfamethoxazole/Trimethoprim 1 each PO BID #20 tablet 06/24/20 Unknown Rx [Bactrim DS TAB] ALBUTEROL NEB's [Proventil 0.083% 2.5 mg IH Q6HRT PRN #1 box 07/18/20 Unknown Rx NEBS] Albuterol Sulfate [Albuterol 0.63% 0.63 mg IH Q4HR PRN #2 ml 08/23/20 Unknown Rx NEBS] Albuterol Sulfate [Proair 90 mcg IH Q4HR PRN #2 aer.pow.ba 08/23/20 Unknown Rx Respiclick] Ipratropium (Nf) [Atrovent HFA 2 puff IH Q6HR PRN #1 inha 08/23/20 Unknown Rx 17MCG/PUFF] ALBUTEROL NEB's [Proventil 0.083% 2.5 mg IH TID PRN #1 box 09/16/20 Unknown Rx NEBS] Ipratropium [Atrovent] 0.5 mg IH Q8HRT #1 box 09/16/20 Unknown Rx predniSONE [Deltasone] 40 mg PO QDAY #10 tab 09/16/20 Unknown Rx Famotidine [Pepcid] 20 mg PO BID #20 tablet 10/08/20 Unknown Rx Ondansetron [Zofran Odt] 4 mg PO Q8HR PRN #15 tab.rapdis 10/08/20 Unknown Rx predniSONE [Deltasone] 40 mg PO QDAY 4 Days tab 10/08/20 Unknown Rx Ipratropium [Atrovent] 0.5 mg IH Q4HWA #1 box 10/24/20 Unknown Rx Prednisone [predniSONE 10 mg 10 mg PO .TAPER #1 tab.ds.pk 10/24/20 Unknown Rx (6-Day Pack, 21 Tabs)] levoFLOXacin [Levaquin TAB] 500 mg PO QDAY #7 tablet 10/24/20 Unknown Rx ALBUTEROL NEB's [Proventil 0.083% 3 ml IH Q6H PRN 30 Days #75 ml 01/11/21 Unknown Rx NEBS] Fluticasone/Salmeterol [Advair 1 puff IH BID #1 01/11/21 Unknown Rx Diskus 500-50 mcg] Ipratropium 0.06% [Atrovent] 2 spray NS Q8HR #1 bottle 01/11/21 Unknown Rx Ipratropium [Atrovent NEB] 0.5 mg IH Q4HR #2 ml 01/11/21 Unknown Rx levoFLOXacin [Levaquin TAB] 500 mg PO Q24HR #7 tablet 01/11/21 Unknown Rx predniSONE [Deltasone] 20 mg PO QDAY #20 tab 01/11/21 Unknown Rx predniSONE [Deltasone] 40 mg PO DAILY 5 Days #10 tablet 05/10/21 Unknown Rx Allergies Allergy/AdvReac Type Severity Reaction Status Date / Time aspirin Allergy Anaphylaxis Verified 09/19/21 06:33 azithromycin [From Zithromax] Allergy Anaphylaxis Verified 09/19/21 06:33 doxycycline Allergy Rash Verified 09/19/21 06:33 ketorolac tromethamine Allergy Anaphylaxis Verified 09/19/21 06:33 [From Toradol] Latex, Natural Rubber Allergy Angioedema Verified 09/19/21 06:33 morphine Allergy Shortness Verified 09/19/21 06:33 of Breath NSAIDS (Non-Steroidal Allergy Anaphylaxis Verified 09/19/21 06:33 Anti-Inflamma Penicillins Allergy Hives Verified 09/19/21 06:33 ED Review of Systems ROS: Stated complaint: SOB/ALLERGY Other details as noted in HPI Comment: All other systems reviewed and negative Constitutional: denies: chills, fever Respiratory: cough, shortness of breath, SOB with exertion, SOB at rest, wheezing Cardiovascular: denies: chest pain, palpitations Gastrointestinal: denies: abdominal pain, nausea, vomiting, diarrhea, constipation, hematemesis, melena, hematochezia Genitourinary: denies: urgency, dysuria Musculoskeletal: denies: back pain Neurological: denies: headache, weakness, numbness, paresthesias, confusion ED Past Medical Hx - Past Medical History Hx Hypertension: No Hx Heart Attack/AMI: No Hx Congestive Heart Failure: No Hx Diabetes: No Hx Deep Vein Thrombosis: No Hx Pulmonary Embolism: No Hx GERD: Yes Hx Liver Disease: No Hx Renal Disease: No Hx Sickle Cell Disease: No Hx Arthritis: No Hx Seizures: No Hx Kidney Stones: No Hx Asthma: Yes Hx COPD: No Hx Tuberculosis: No Hx Dementia: No Hx HIV: No Additional medical history: sinus problems. Prior Intubations x3. Obesity. hypothyroid - Surgical History Hx Coronary Stent: No Hx Open Heart Surgery: No Hx Pacemaker: No Hx Internal Defibrillator: No Hx Cholecystectomy: No Hx Appendectomy: No Hx Breast Surgery: No Additional Surgical History: x4, umbilical hernia repair, sinus surgeries, D&C. thyroid removal. tubligation - Social History Smoking Status: Never Smoker - Medications Home Medications: Home Medications Medication Instructions Recorded Confirmed Last Taken Type AtorvaSTATin [Lipitor] 40 mg PO QHS 01/12/20 04/23/20 Unknown History Levothyroxine [Synthroid] 25 mcg PO QDAY 02/24/20 04/23/20 Unknown History Ascorbic Acid [Vitamin C] 04/23/20 Unknown History Cinnamon 04/23/20 Unknown History Diphenoxylate/Atropine [Lomotil] 1 tab PO Q6H PRN #14 tablet 04/23/20 Unknown Rx Ergocalciferol(Vitamin D2)(Nf) 04/23/20 Unknown History [Vitamin D (Nf)] Vitamin E (Dl,Tocopheryl Acet) 04/23/20 Unknown History [Vitamin E] metroNIDAZOLE [Flagyl TAB] 500 mg PO Q12H #14 tablet 04/23/20 Unknown Rx Cetirizine HCl/Pseudoephedrine 1 each PO BID PRN #20 tab.er.12h 05/03/20 Unknown Rx [Zyrtec-D Tablet] Benzonatate [Tessalon Perles] 100 mg PO Q8HR #30 capsule 05/16/20 Unknown Rx Prednisone [predniSONE 10 mg 10 mg PO .TAPER #21 tab.ds.pk 05/16/20 Unknown Rx (6-Day Pack, 21 Tabs)] Prednisone [predniSONE 10 mg 10 mg PO .TAPER #1 tab.ds.pk 06/14/20 Unknown Rx (6-Day Pack, 21 Tabs)] ALBUTEROL NEB's [Proventil 0.083% 2.5 mg IH TID PRN #1 box 06/24/20 Unknown Rx NEBS] Albuterol Sulfate [Proair 1 - 2 puff IH Q4HR PRN #1 06/24/20 Unknown Rx Digihaler] aer.pw.bas Sulfamethoxazole/Trimethoprim 1 each PO BID #20 tablet 06/24/20 Unknown Rx [Bactrim DS TAB] ALBUTEROL NEB's [Proventil 0.083% 2.5 mg IH Q6HRT PRN #1 box 07/18/20 Unknown Rx NEBS] Albuterol Sulfate [Albuterol 0.63% 0.63 mg IH Q4HR PRN #2 ml 08/23/20 Unknown Rx NEBS] Albuterol Sulfate [Proair 90 mcg IH Q4HR PRN #2 aer.pow.ba 08/23/20 Unknown Rx Respiclick] Ipratropium (Nf) [Atrovent HFA 2 puff IH Q6HR PRN #1 inha 08/23/20 Unknown Rx 17MCG/PUFF] ALBUTEROL NEB's [Proventil 0.083% 2.5 mg IH TID PRN #1 box 09/16/20 Unknown Rx NEBS] Ipratropium [Atrovent] 0.5 mg IH Q8HRT #1 box 09/16/20 Unknown Rx predniSONE [Deltasone] 40 mg PO QDAY #10 tab 09/16/20 Unknown Rx Famotidine [Pepcid] 20 mg PO BID #20 tablet 10/08/20 Unknown Rx Ondansetron [Zofran Odt] 4 mg PO Q8HR PRN #15 tab.rapdis 10/08/20 Unknown Rx predniSONE [Deltasone] 40 mg PO QDAY 4 Days tab 10/08/20 Unknown Rx Ipratropium [Atrovent] 0.5 mg IH Q4HWA #1 box 10/24/20 Unknown Rx Prednisone [predniSONE 10 mg 10 mg PO .TAPER #1 tab.ds.pk 10/24/20 Unknown Rx (6-Day Pack, 21 Tabs)] levoFLOXacin [Levaquin TAB] 500 mg PO QDAY #7 tablet 10/24/20 Unknown Rx ALBUTEROL NEB's [Proventil 0.083% 3 ml IH Q6H PRN 30 Days #75 ml 01/11/21 Unknown Rx NEBS] Fluticasone/Salmeterol [Advair 1 puff IH BID #1 01/11/21 Unknown Rx Diskus 500-50 mcg] Ipratropium 0.06% [Atrovent] 2 spray NS Q8HR #1 bottle 01/11/21 Unknown Rx Ipratropium [Atrovent NEB] 0.5 mg IH Q4HR #2 ml 01/11/21 Unknown Rx levoFLOXacin [Levaquin TAB] 500 mg PO Q24HR #7 tablet 01/11/21 Unknown Rx predniSONE [Deltasone] 20 mg PO QDAY #20 tab 01/11/21 Unknown Rx predniSONE [Deltasone] 40 mg PO DAILY 5 Days #10 tablet 05/10/21 Unknown Rx ED Physical Exam - General Limitations: No Limitations General appearance: alert, in no apparent distress - Head Head exam: Present: atraumatic, normocephalic, normal inspection - Eye Eye exam: Present: normal appearance, PERRL - ENT ENT exam: Present: normal exam, normal orophraynx, mucous membranes moist - Neck Neck exam: Present: normal inspection, full ROM. Absent: tenderness, meningismus - Respiratory Respiratory exam: Present: wheezes, rhonchi, decreased breath sounds, prolonged expiratory. Absent: respiratory distress, rales, accessory muscle use - Cardiovascular Cardiovascular Exam: Present: regular rate, normal rhythm, normal heart sounds. Absent: bradycardia, tachycardia - GI/Abdominal GI/Abdominal exam: Present: soft, normal bowel sounds. Absent: distended, tenderness, guarding, rebound, rigid, mass, bruit, pulsatile mass, hernia - Extremities Exam Extremities exam: Present: normal inspection, full ROM, normal capillary refill. Absent: tenderness - Back Exam Back exam: Present: normal inspection, full ROM. Absent: CVA tenderness (R), CVA tenderness (L) - Neurological Exam Neurological exam: Present: alert, oriented X3, CN II-XII intact - Psychiatric Psychiatric exam: Present: normal mood - Skin Skin exam: Present: warm, intact, normal color ED Course Vital Signs 09/19/21 06:19 Temperature 97.9 F Pulse Rate 103 H Respiratory 20 Rate Blood Pressure 121/85 [Right] O2 Sat by Pulse 97 Oximetry ED Medical Decision Making - Lab Data Result diagrams: 09/19/21 06:52 09/19/21 06:52 - Radiology Data Radiology results: report reviewed - Medical Decision Making Patient is 51 years old female with history of asthma. Patient presented to the ER complaining of an asthma attack. Patient stated symptoms started 2 days ago with dry cough, wheezing and shortness of breath. She denied any fever or chills. No chest pain. Patient also denied any nausea or vomiting. Patient stated that she took her albuterol at home but is not improving her symptoms. Patient received albuterol, Atrovent and Solu-Medrol. Patient stated that she is feeling better. Patient labs is unremarkable and chest x-ray is negative for acute finding. Patient given prescription for prednisone and advised to follow-up with her primary care physician in the next 2 to 3 days and to return to the ER if she develop any new symptoms. Critical care attestation.: If time is entered above; I have spent that time in minutes in the direct care of this critically ill patient, excluding procedure time. ED Disposition Clinical Impression: Acute asthma exacerbation Disposition: 01 HOME / SELF CARE / HOMELESS Is pt being admited?: No Condition: Stable Instructions: Asthma, Adult Referrals: PRIMARY CARE, [Primary Care Provider] - 3-5 Days
[2021-09-19] MEDS: ALBUTEROL 2.5 MG/3 ML NEBU IH ONE (06:40)
[2021-09-19] MEDS: methylPREDNISolone Sod Succinate 125 MG/2 ML INJ IM ONE (06:40)
[2021-09-19] MEDS: IPRATROPIUM 0.02% NEBU 2.5 ML IH ONE (06:40)
[2021-09-19 07:07] LABS: Basophils # (Auto) 0.1 K/mm3 (0.0-0.1); Eosinophils # (Auto) 0.7 K/mm3 (0.0-0.4); Eosinophils % (Auto) 10.2 % (0.0-4.3); Lymphocytes # (Auto) 1.6 K/mm3 (1.2-5.4); Lymphocytes % (Auto) 23.1 % (13.4-35.0); Mean Corpuscular HGB Conc 31 % (30-34); Mean Corpuscular Volume 81 fl (79-97); Monocytes # (Auto) 0.6 K/mm3 (0.0-0.8); Monocytes % (Auto) 9.2 % (0.0-7.3); Platelet Count 242 K/mm3 (140-440); Red Blood Count 5.08 M/mm3 (3.65-5.03); Red Cell Distribution Width 15.7 % (13.2-15.2)
[2021-09-19 07:19] LABS: BUN/Creatinine Ratio 9; Blood Urea Nitrogen 7 mg/dL (7-17); Calcium 9.3 mg/dL (8.4-10.2); Hemolysis Index 37
--- NOTE | 2021-09-19 07:39 | XRay Report ---
XR chest routine 2V INDICATION / CLINICAL INFORMATION: Asthma. COMPARISON: 08/24/2021. FINDINGS: SUPPORT DEVICES: None. HEART /PULMONARY VASCULATURE: No significant abnormality. LUNGS / PLEURA: No significant pulmonary or pleural abnormality. Prominent skin fold is again seen al diane left lateral hemithorax. No pneumothorax. ADDITIONAL FINDINGS: No significant additional findings. IMPRESSION: 1. No acute findings. Signer Name: Hero Akbar MD Signed: 09/19/2021 7:34 AM Workstation Name: [id number]
[2021-09-19 07:47] LABS: Hematocrit 41.2 % (30.3-42.9); Hemoglobin 12.7 gm/dl (10.1-14.3)
== END 2021-09-19 09:11 | disposition home or self-care (01) ==
LOC: ED 06:16
DX: J45.901 Unspecified asthma with (acute) exacerbation (principal); K21.9 Gastro-esophageal reflux disease without esophagitis; E66.9 Obesity, unspecified; E89.0 Postprocedural hypothyroidism; Z98.51 Tubal ligation status; Z98.890 Other specified postprocedural states; Z88.8 Allergy status to other drugs, medicaments and biological substances; Z88.1 Allergy status to other antibiotic agents; Z91.040 Latex allergy status; Z88.5 Allergy status to narcotic agent; Z88.0 Allergy status to penicillin
CPT/HCPCS: 36415; 71046; 80048; 85025; 94640; 96372; 99284; J2930

== ENCOUNTER 2021-10-20 02:40 | Emergency (ER) | payer MEDICARE ==
[2021-10-20] MEDS ORDERED: IPRATROPIUM 0.02% NEBU 2.5 ML IH ONE (03:25)
[2021-10-20] MEDS ORDERED: ALBUTEROL 2.5 MG/3 ML NEBU IH ONE (03:25)
--- NOTE | 2021-10-20 03:34 | Emergency Department Report ---
ED General Adult HPI - General Chief complaint: Adult Asthma Stated complaint: I feel like i need breathing treatment Time Seen by Provider: 10/20/21 03:14 Source: patient, family, RN notes reviewed, old records reviewed Mode of arrival: Ambulatory Limitations: No Limitations - History of Present Illness Initial comments: The patient was evaluated in the emergency department for symptoms described in the history of present illness. He/she was evaluated in the context of the global COVID-19 pandemic, which necessitated consideration that the patient might be at risk for infection with the virus that causes COVID-19. Institutional protocols and algorithms that pertain to the evaluation of patients at risk for COVID-19 are in a state of rapid change based on information released by regulatory bodies including the CDC and federal and state organizations. These policies and algorithms were followed during the patient's care in the emergency department. Please note that these policies, procedures and recommendations changed on a rapid basis. Patient is a 51-year-old female whom I have evaluated in the past, who is not on home oxygen at this time, who recently moved back to this area, after relocating from [place], for the past month, who presents to the ER today with request for breathing treatment. Patient reports that she left her breathing machine in the car of an individual who drove her to a local hotel. The patient denies physical pain. She has a chronic cough. She denies travel, surgery, immobilization, DVT/PE risk factors. The patient reports that she is currently maintained on Advair as a maintenance medication. -: Gradual Improves with: medication - Related Data Home Medications Medication Instructions Recorded Confirmed Last Taken AtorvaSTATin [Lipitor] 40 mg PO QHS 01/12/20 04/23/20 Unknown Levothyroxine [Synthroid] 25 mcg PO QDAY 02/24/20 04/23/20 Unknown Ascorbic Acid [Vitamin C] 04/23/20 Unknown Cinnamon 04/23/20 Unknown Ergocalciferol(Vitamin D2)(Nf) 04/23/20 Unknown [Vitamin D (Nf)] Vitamin E (Dl,Tocopheryl Acet) 04/23/20 Unknown [Vitamin E] Previous Rx's Medication Instructions Recorded Last Taken Type Diphenoxylate/Atropine [Lomotil] 1 tab PO Q6H PRN #14 tablet 04/23/20 Unknown Rx metroNIDAZOLE [Flagyl TAB] 500 mg PO Q12H #14 tablet 04/23/20 Unknown Rx Cetirizine HCl/Pseudoephedrine 1 each PO BID PRN #20 tab.er.12h 05/03/20 Unknown Rx [Zyrtec-D Tablet] Benzonatate [Tessalon Perles] 100 mg PO Q8HR #30 capsule 05/16/20 Unknown Rx Prednisone [predniSONE 10 mg 10 mg PO .TAPER #21 tab.ds.pk 05/16/20 Unknown Rx (6-Day Pack, 21 Tabs)] Prednisone [predniSONE 10 mg 10 mg PO .TAPER #1 tab.ds.pk 06/14/20 Unknown Rx (6-Day Pack, 21 Tabs)] ALBUTEROL NEB's [Proventil 0.083% 2.5 mg IH TID PRN #1 box 06/24/20 Unknown Rx NEBS] Albuterol Sulfate [Proair 1 - 2 puff IH Q4HR PRN #1 06/24/20 Unknown Rx Digihaler] aer.pw.bas Sulfamethoxazole/Trimethoprim 1 each PO BID #20 tablet 06/24/20 Unknown Rx [Bactrim DS TAB] ALBUTEROL NEB's [Proventil 0.083% 2.5 mg IH Q6HRT PRN #1 box 07/18/20 Unknown Rx NEBS] Albuterol Sulfate [Albuterol 0.63% 0.63 mg IH Q4HR PRN #2 ml 08/23/20 Unknown Rx NEBS] Albuterol Sulfate [Proair 90 mcg IH Q4HR PRN #2 aer.pow.ba 08/23/20 Unknown Rx Respiclick] Ipratropium (Nf) [Atrovent HFA 2 puff IH Q6HR PRN #1 inha 08/23/20 Unknown Rx 17MCG/PUFF] ALBUTEROL NEB's [Proventil 0.083% 2.5 mg IH TID PRN #1 box 09/16/20 Unknown Rx NEBS] Ipratropium [Atrovent] 0.5 mg IH Q8HRT #1 box 09/16/20 Unknown Rx predniSONE [Deltasone] 40 mg PO QDAY #10 tab 09/16/20 Unknown Rx Famotidine [Pepcid] 20 mg PO BID #20 tablet 10/08/20 Unknown Rx Ondansetron [Zofran Odt] 4 mg PO Q8HR PRN #15 tab.rapdis 10/08/20 Unknown Rx predniSONE [Deltasone] 40 mg PO QDAY 4 Days tab 10/08/20 Unknown Rx Ipratropium [Atrovent] 0.5 mg IH Q4HWA #1 box 10/24/20 Unknown Rx Prednisone [predniSONE 10 mg 10 mg PO .TAPER #1 tab.ds.pk 10/24/20 Unknown Rx (6-Day Pack, 21 Tabs)] levoFLOXacin [Levaquin TAB] 500 mg PO QDAY #7 tablet 10/24/20 Unknown Rx ALBUTEROL NEB's [Proventil 0.083% 3 ml IH Q6H PRN 30 Days #75 ml 01/11/21 Unknown Rx NEBS] Fluticasone/Salmeterol [Advair 1 puff IH BID #1 01/11/21 Unknown Rx Diskus 500-50 mcg] Ipratropium 0.06% [Atrovent] 2 spray NS Q8HR #1 bottle 01/11/21 Unknown Rx Ipratropium [Atrovent NEB] 0.5 mg IH Q4HR #2 ml 01/11/21 Unknown Rx levoFLOXacin [Levaquin TAB] 500 mg PO Q24HR #7 tablet 01/11/21 Unknown Rx predniSONE [Deltasone] 20 mg PO QDAY #20 tab 01/11/21 Unknown Rx predniSONE [Deltasone] 40 mg PO DAILY 5 Days #10 tablet 05/10/21 Unknown Rx Ipratropium (Nf) [Atrovent] 2 puff IH Q6HR PRN #1 inha 09/19/21 Unknown Rx Prednisone [predniSONE 10 mg 10 mg PO .TAPER #1 tab.ds.pk 09/19/21 Unknown Rx (6-Day Pack, 21 Tabs)] Albuterol Sulfate [Albuterol 0.63% 0.63 mg IH Q4HR PRN #2 ml 10/20/21 Unknown Rx NEBS] Albuterol Sulfate [Proair 90 mcg IH Q4HR PRN #2 aer.pow.ba 10/20/21 Unknown Rx Respiclick] Ipratropium (Nf) [Atrovent] 2 puff IH Q6HR PRN #1 inha 10/20/21 Unknown Rx Ipratropium [Atrovent NEB] 0.5 mg IH Q4HR #2 ml 10/20/21 Unknown Rx Allergies Allergy/AdvReac Type Severity Reaction Status Date / Time aspirin Allergy Anaphylaxis Verified 10/20/21 03:10 azithromycin [From Zithromax] Allergy Anaphylaxis Verified 10/20/21 03:10 doxycycline Allergy Rash Verified 10/20/21 03:10 ketorolac tromethamine Allergy Anaphylaxis Verified 10/20/21 03:10 [From Toradol] Latex, Natural Rubber Allergy Angioedema Verified 10/20/21 03:10 morphine Allergy Shortness Verified 10/20/21 03:10 of Breath NSAIDS (Non-Steroidal Allergy Anaphylaxis Verified 10/20/21 03:10 Anti-Inflamma Penicillins Allergy Hives Verified 10/20/21 03:10 ED Review of Systems ROS: Stated complaint: ASTHMA Other details as noted in HPI Constitutional: other (Denies loss of taste and smell). denies: fever ENT: congestion Respiratory: cough, shortness of breath, wheezing Cardiovascular: denies: chest pain Gastrointestinal: denies: abdominal pain Musculoskeletal: denies: back pain Neurological: denies: weakness ED Past Medical Hx - Past Medical History Hx Hypertension: No Hx Heart Attack/AMI: No Hx Congestive Heart Failure: No Hx Diabetes: No Hx Deep Vein Thrombosis: No Hx Pulmonary Embolism: No Hx GERD: Yes Hx Liver Disease: No Hx Renal Disease: No Hx Sickle Cell Disease: No Hx Arthritis: No Hx Seizures: No Hx Kidney Stones: No Hx Asthma: Yes Hx COPD: No Hx Tuberculosis: No Hx Dementia: No Hx HIV: No Additional medical history: sinus problems. Prior Intubations x3. Obesity. hypothyroid - Surgical History Hx Coronary Stent: No Hx Open Heart Surgery: No Hx Pacemaker: No Hx Internal Defibrillator: No Hx Cholecystectomy: No Hx Appendectomy: No Hx Breast Surgery: No Additional Surgical History: x4, umbilical hernia repair, sinus surgeries, D&C. thyroid removal. tubligation - Social History Smoking Status: Never Smoker - Medications Home Medications: Home Medications Medication Instructions Recorded Confirmed Last Taken Type AtorvaSTATin [Lipitor] 40 mg PO QHS 01/12/20 04/23/20 Unknown History Levothyroxine [Synthroid] 25 mcg PO QDAY 02/24/20 04/23/20 Unknown History Ascorbic Acid [Vitamin C] 07/18/20 Unknown History Cinnamon 04/23/20 Unknown History Diphenoxylate/Atropine [Lomotil] 1 tab PO Q6H PRN #14 tablet 04/23/20 Unknown Rx Ergocalciferol(Vitamin D2)(Nf) 04/23/20 Unknown History [Vitamin D (Nf)] Vitamin E (Dl,Tocopheryl Acet) 04/23/20 Unknown History [Vitamin E] metroNIDAZOLE [Flagyl TAB] 500 mg PO Q12H #14 tablet 04/23/20 Unknown Rx Cetirizine HCl/Pseudoephedrine 1 each PO BID PRN #20 tab.er.12h 05/03/20 Unknown Rx [Zyrtec-D Tablet] Benzonatate [Tessalon Perles] 100 mg PO Q8HR #30 capsule 05/16/20 Unknown Rx Prednisone [predniSONE 10 mg 10 mg PO .TAPER #21 tab.ds.pk 05/16/20 Unknown Rx (6-Day Pack, 21 Tabs)] Prednisone [predniSONE 10 mg 10 mg PO .TAPER #1 tab.ds.pk 06/14/20 Unknown Rx (6-Day Pack, 21 Tabs)] ALBUTEROL NEB's [Proventil 0.083% 2.5 mg IH TID PRN #1 box 06/24/20 Unknown Rx NEBS] Albuterol Sulfate [Proair 1 - 2 puff IH Q4HR PRN #1 06/24/20 Unknown Rx Digihaler] aer.pw.bas Sulfamethoxazole/Trimethoprim 1 each PO BID #20 tablet 06/24/20 Unknown Rx [Bactrim DS TAB] ALBUTEROL NEB's [Proventil 0.083% 2.5 mg IH Q6HRT PRN #1 box 07/18/20 Unknown Rx NEBS] Albuterol Sulfate [Albuterol 0.63% 0.63 mg IH Q4HR PRN #2 ml 08/23/20 Unknown Rx NEBS] Albuterol Sulfate [Proair 90 mcg IH Q4HR PRN #2 aer.pow.ba 08/23/20 Unknown Rx Respiclick] Ipratropium (Nf) [Atrovent HFA 2 puff IH Q6HR PRN #1 inha 08/23/20 Unknown Rx 17MCG/PUFF] ALBUTEROL NEB's [Proventil 0.083% 2.5 mg IH TID PRN #1 box 09/16/20 Unknown Rx NEBS] Ipratropium [Atrovent] 0.5 mg IH Q8HRT #1 box 09/16/20 Unknown Rx predniSONE [Deltasone] 40 mg PO QDAY #10 tab 09/16/20 Unknown Rx Famotidine [Pepcid] 20 mg PO BID #20 tablet 10/08/20 Unknown Rx Ondansetron [Zofran Odt] 4 mg PO Q8HR PRN #15 tab.rapdis 10/08/20 Unknown Rx predniSONE [Deltasone] 40 mg PO QDAY 4 Days tab 10/08/20 Unknown Rx Ipratropium [Atrovent] 0.5 mg IH Q4HWA #1 box 10/24/20 Unknown Rx Prednisone [predniSONE 10 mg 10 mg PO .TAPER #1 tab.ds.pk 10/24/20 Unknown Rx (6-Day Pack, 21 Tabs)] levoFLOXacin [Levaquin TAB] 500 mg PO QDAY #7 tablet 10/24/20 Unknown Rx ALBUTEROL NEB's [Proventil 0.083% 3 ml IH Q6H PRN 30 Days #75 ml 01/11/21 Unknown Rx NEBS] Fluticasone/Salmeterol [Advair 1 puff IH BID #1 01/11/21 Unknown Rx Diskus 500-50 mcg] Ipratropium 0.06% [Atrovent] 2 spray NS Q8HR #1 bottle 01/11/21 Unknown Rx Ipratropium [Atrovent NEB] 0.5 mg IH Q4HR #2 ml 01/11/21 Unknown Rx levoFLOXacin [Levaquin TAB] 500 mg PO Q24HR #7 tablet 01/11/21 Unknown Rx predniSONE [Deltasone] 20 mg PO QDAY #20 tab 01/11/21 Unknown Rx predniSONE [Deltasone] 40 mg PO DAILY 5 Days #10 tablet 05/10/21 Unknown Rx Ipratropium (Nf) [Atrovent] 2 puff IH Q6HR PRN #1 inha 09/19/21 Unknown Rx Prednisone [predniSONE 10 mg 10 mg PO .TAPER #1 tab.ds.pk 09/19/21 Unknown Rx (6-Day Pack, 21 Tabs)] Albuterol Sulfate [Albuterol 0.63% 0.63 mg IH Q4HR PRN #2 ml 10/20/21 Unknown Rx NEBS] Albuterol Sulfate [Proair 90 mcg IH Q4HR PRN #2 aer.pow.ba 10/20/21 Unknown Rx Respiclick] Ipratropium (Nf) [Atrovent] 2 puff IH Q6HR PRN #1 inha 10/20/21 Unknown Rx Ipratropium [Atrovent NEB] 0.5 mg IH Q4HR #2 ml 10/20/21 Unknown Rx ED Physical Exam - General Limitations: No Limitations General appearance: alert, in no apparent distress - Head Head exam: Present: atraumatic, normocephalic - Eye Eye exam: Present: normal appearance, EOMI. Absent: nystagmus - ENT ENT exam: Present: normal exam, normal orophraynx, mucous membranes moist, normal external ear exam - Neck Neck exam: Present: normal inspection, full ROM. Absent: tenderness, meningismus - Respiratory Respiratory exam: Present: normal lung sounds bilaterally. Absent: respiratory distress, wheezes, rales, rhonchi, stridor, decreased breath sounds - Cardiovascular Cardiovascular Exam: Present: regular rate, normal rhythm, normal heart sounds. Absent: bradycardia, tachycardia, irregular rhythm, systolic murmur, diastolic murmur, rubs, gallop - GI/Abdominal GI/Abdominal exam: Present: soft. Absent: distended, tenderness, guarding, rebound, rigid, pulsatile mass - Extremities Exam Extremities exam: Present: normal inspection, full ROM, other (2+ pulses noted in the bilateral upper and lower extremities. There is no palpable cord. negative Homans sign. Muscular compartments are soft. The pelvis is stable.). Absent: pedal edema, calf tenderness - Back Exam Back exam: Present: normal inspection, full ROM. Absent: tenderness, CVA tenderness (R), CVA tenderness (L), paraspinal tenderness, vertebral tenderness - Neurological Exam Neurological exam: Present: alert, oriented X3, normal gait, other (No facial droop. Tongue midline. Extraocular movements intact bilaterally. Facial sensation intact to light touch in V1, V2, V3 distribution bilaterally. 5 and a 5 strength in 4 extremities. Sensation intact to light touch in 4 extremities.). Absent: motor sensory deficit - Psychiatric Psychiatric exam: Present: normal affect, normal mood - Skin Skin exam: Present: warm, dry, intact, normal color. Absent: rash ED Course Vital Signs 10/20/21 03:06 Temperature 97.5 F L Pulse Rate 86 Respiratory 22 Rate Blood Pressure 117/67 O2 Sat by Pulse 97 Oximetry ED Medical Decision Making - Lab Data Vital Signs 10/20/21 03:06 Temperature 97.5 F L Pulse Rate 86 Respiratory 22 Rate Blood Pressure 117/67 O2 Sat by Pulse 97 Oximetry - Medical Decision Making Differential diagnosis, including but not limited to: History of reactive airways disease, encounter for medical screening examination Assessment and plan: 51-year-old female, who was afebrile, with reassuring vital signs, who is not currently tachycardic, tachypneic or hypoxic, who denies DVT and pulmonary embolism risk factors, who is low risk by Wells criteria for pulmonary embolism, presenting to the ER today with a primary complaint of request for breathing treatment, because she does not have access to her outpatient breathing machine currently. Lung sounds are clear. Physical exam is benign and unremarkable. Saturating well on room air. Patient treated empirically. She will be discharged with albuterol and Atrovent. No active wheezing at this time, no indication for steroids. Patient observed in this department for hours without clinical decompensation. She may follow-up with an outpatient director critical care and her primary care doctor Critical care attestation.: If time is entered above; I have spent that time in minutes in the direct care of this critically ill patient, excluding procedure time. ED Disposition Clinical Impression: History of asthma, Encounter for medical screening examination Disposition: HOME / SELF CARE / HOMELESS Is pt being admited?: No Does the pt Need Aspirin: No Condition: Good Instructions: Asthma, Adult Additional Instructions: Please take the medications as needed and directed. Please follow-up with a primary care doctor or director critical care within the next 7 to 10 days. Please return to the emergency room right away with new pain, worsened pain, migration of pain, projectile vomiting, change in mental status, confusion, inability tolerate liquid feeds, new, worsened or different symptoms not present on the initial emergency room evaluation Referrals: PARKER BROCK MD [Staff Physician] - 3-5 Days PRECIOUS FARIA MD [Staff Physician] - 3-5 Days Forms: Work/School Release Form(ED)
[2021-10-20 05:03] VITALS: BP 109/76
== END 2021-10-20 05:04 | disposition home or self-care (01) ==
LOC: ED 02:40
DX: J45.909 Unspecified asthma, uncomplicated (principal); Z00.00 Encounter for general adult medical examination without abnormal findings; Z88.6 Allergy status to analgesic agent; Z88.1 Allergy status to other antibiotic agents; Z88.0 Allergy status to penicillin; Z91.040 Latex allergy status
CPT/HCPCS: 94640; 99282

== ENCOUNTER 2021-11-17 10:43 | Emergency (ER) | payer MEDICARE ==
[2021-11-17] MEDS ORDERED: IPRATROPIUM 0.02% NEBU 2.5 ML IH ONE ×2 (10:51→10:52)
[2021-11-17] MEDS ORDERED: ALBUTEROL 2.5 MG/3 ML NEBU IH ONE ×3 (10:52→14:49)
[2021-11-17] MEDS ORDERED: methylPREDNISolone Sod Succinate 125 MG/2 ML INJ IV ONE (10:52)
[2021-11-17 10:53] VITALS: BP 130/87
[2021-11-17] MEDS ORDERED: MAGNESIUM SULFATE 2 GM/50 ML BAG IV ONE (10:53)
--- NOTE | 2021-11-17 11:11 | Emergency Department Report ---
ED Shortness of Breath HPI - General Chief Complaint: Dyspnea/Respdistress Stated Complaint: ASTHMA ATTACK Time Seen by Provider: 11/17/21 10:52 Source: patient Mode of arrival: Wheelchair Limitations: No Limitations - History of Present Illness Initial Comments: 51-year-old female the past medical history of asthma with 4 previous intubations presents to the hospital complaining of worsening shortness of breath since this morning. Patient states shortness of breath and wheezing started yesterday after smelling a bystanders perfume. Patient has had increased nebulizer treatment use since that time. This morning she woke up shortness of breath without improvement with home treatments. Patient complains of mild congestion in throat without cough or fever - Related Data Home Medications Medication Instructions Recorded Confirmed Last Taken RX: AtorvaSTATin [Lipitor] 40 mg PO QHS 01/12/20 04/23/20 Unknown RX: Levothyroxine [Synthroid] 25 mcg PO QDAY 02/24/20 04/23/20 Unknown Cinnamon 04/23/20 Unknown RX: Ascorbic Acid [Vitamin C] 04/23/20 Unknown RX: Ergocalciferol(Vitamin D2)(Nf) 04/23/20 Unknown [Vitamin D (Nf)] RX: Vitamin E (Dl,Tocopheryl Acet) 04/23/20 Unknown [Vitamin E] Previous Rx's Medication Instructions Recorded Last Taken Type RX: Diphenoxylate/Atropine 1 tab PO Q6H PRN #14 tablet 04/23/20 Unknown Rx [Lomotil] RX: metroNIDAZOLE [Flagyl TAB] 500 mg PO Q12H #14 tablet 04/23/20 Unknown Rx Cetirizine HCl/Pseudoephedrine 1 each PO BID PRN #20 tab.er.12h 05/03/20 Unknown Rx [Zyrtec-D Tablet] Benzonatate [Tessalon Perles] 100 mg PO Q8HR #30 capsule 05/16/20 Unknown Rx RX: Prednisone [predniSONE 10 mg 10 mg PO .TAPER #21 tab.ds.pk 05/16/20 Unknown Rx (6-Day Pack, 21 Tabs)] RX: Prednisone [predniSONE 10 mg 10 mg PO .TAPER #1 tab.ds.pk 06/14/20 Unknown Rx (6-Day Pack, 21 Tabs)] RX: Albuterol Sulfate [Proair 1 - 2 puff IH Q4HR PRN #1 06/24/20 Unknown Rx Digihaler] aer.pw.bas Sulfamethoxazole/Trimethoprim 1 each PO BID #20 tablet 06/24/20 Unknown Rx [Bactrim DS TAB] RX: ALBUTEROL NEB's [Proventil 2.5 mg IH Q6HRT PRN #1 box 07/18/20 Unknown Rx 0.083% NEBS] RX: Albuterol Sulfate [Albuterol 0.63 mg IH Q4HR PRN #2 ml 08/23/20 Unknown Rx 0.63% NEBS] RX: Albuterol Sulfate [Proair 90 mcg IH Q4HR PRN #2 aer.pow.ba 08/23/20 Unknown Rx Respiclick] RX: Ipratropium (Nf) [Atrovent HFA 2 puff IH Q6HR PRN #1 inha 08/23/20 Unknown Rx 17MCG/PUFF] Ipratropium [Atrovent] 0.5 mg IH Q8HRT #1 box 09/16/20 Unknown Rx RX: ALBUTEROL NEB's [Proventil 2.5 mg IH TID PRN #1 box 09/16/20 Unknown Rx 0.083% NEBS] Famotidine [Pepcid] 20 mg PO BID #20 tablet 10/08/20 Unknown Rx Ondansetron [Zofran Odt] 4 mg PO Q8HR PRN #15 tab.rapdis 10/08/20 Unknown Rx RX: predniSONE [Deltasone] 40 mg PO QDAY 4 Days tab 10/08/20 Unknown Rx Ipratropium [Atrovent] 0.5 mg IH Q4HWA #1 box 10/24/20 Unknown Rx RX: Prednisone [predniSONE 10 mg 10 mg PO .TAPER #1 tab.ds.pk 10/24/20 Unknown Rx (6-Day Pack, 21 Tabs)] levoFLOXacin [Levaquin TAB] 500 mg PO QDAY #7 tablet 10/24/20 Unknown Rx RX: ALBUTEROL NEB's [Proventil 3 ml IH Q6H PRN 30 Days #75 ml 01/11/21 Unknown Rx 0.083% NEBS] RX: Fluticasone/Salmeterol [Advair 1 puff IH BID #1 01/11/21 Unknown Rx Diskus 500-50 mcg] RX: Ipratropium 0.06% [Atrovent] 2 spray NS Q8HR #1 bottle 01/11/21 Unknown Rx RX: Ipratropium [Atrovent NEB] 0.5 mg IH Q4HR #2 ml 01/11/21 Unknown Rx RX: levoFLOXacin [Levaquin TAB] 500 mg PO Q24HR #7 tablet 01/11/21 Unknown Rx RX: predniSONE [Deltasone] 20 mg PO QDAY #20 tab 01/11/21 Unknown Rx RX: predniSONE [Deltasone] 40 mg PO DAILY 5 Days #10 tablet 05/10/21 Unknown Rx Ipratropium (Nf) [Atrovent] 2 puff IH Q6HR PRN #1 inha 09/19/21 Unknown Rx RX: Prednisone [predniSONE 10 mg 10 mg PO .TAPER #1 tab.ds.pk 09/19/21 Unknown Rx (6-Day Pack, 21 Tabs)] Albuterol Sulfate [Albuterol 0.63% 0.63 mg IH Q4HR PRN #2 ml 10/20/21 Unknown Rx NEBS] Albuterol Sulfate [Proair 90 mcg IH Q4HR PRN #2 aer.pow.ba 10/20/21 Unknown Rx Respiclick] Ipratropium (Nf) [Atrovent] 2 puff IH Q6HR PRN #1 inha 10/20/21 Unknown Rx Ipratropium [Atrovent NEB] 0.5 mg IH Q4HR #2 ml 10/20/21 Unknown Rx RX: ALBUTEROL NEB's [Proventil 2.5 mg IH TID PRN #1 box 11/17/21 Unknown Rx 0.083% NEBS] RX: predniSONE [Deltasone] 40 mg PO QDAY 5 Days tab 11/17/21 Unknown Rx Allergies Allergy/AdvReac Type Severity Reaction Status Date / Time aspirin Allergy Anaphylaxis Verified 10/20/21 03:10 azithromycin [From Zithromax] Allergy Anaphylaxis Verified 10/20/21 03:10 doxycycline Allergy Rash Verified 10/20/21 03:10 ketorolac tromethamine Allergy Anaphylaxis Verified 10/20/21 03:10 [From Toradol] Latex, Natural Rubber Allergy Angioedema Verified 10/20/21 03:10 morphine Allergy Shortness Verified 10/20/21 03:10 of Breath NSAIDS (Non-Steroidal Allergy Anaphylaxis Verified 10/20/21 03:10 Anti-Inflamma Penicillins Allergy Hives Verified 10/20/21 03:10 ED Review of Systems ROS: Stated complaint: ASTHMA ATTACK Other details as noted in HPI Comment: All other systems reviewed and negative ED Past Medical Hx - Past Medical History Previous Medical History?: Yes Hx Hypertension: No Hx Heart Attack/AMI: No Hx Congestive Heart Failure: No Hx Diabetes: No Hx Deep Vein Thrombosis: No Hx Pulmonary Embolism: No Hx GERD: Yes Hx Liver Disease: No Hx Renal Disease: No Hx Sickle Cell Disease: No Hx Arthritis: No Hx Seizures: No Hx Kidney Stones: No Hx Asthma: Yes Hx COPD: No Hx Tuberculosis: No Hx Dementia: No Hx HIV: No Additional medical history: sinus problems. Prior Intubations x3. Obesity. hypothyroid - Surgical History Past Surgical History?: Yes Hx Coronary Stent: No Hx Open Heart Surgery: No Hx Pacemaker: No Hx Internal Defibrillator: No Hx Cholecystectomy: No Hx Appendectomy: No Hx Breast Surgery: No Additional Surgical History: x4, umbilical hernia repair, sinus surgeries, D&C. thyroid removal. tubligation - Social History Smoking Status: Never Smoker - Medications Home Medications: Home Medications Medication Instructions Recorded Confirmed Last Taken Type RX: AtorvaSTATin [Lipitor] 40 mg PO QHS 01/12/20 04/23/20 Unknown History RX: Levothyroxine [Synthroid] 25 mcg PO QDAY 02/24/20 04/23/20 Unknown History Cinnamon 04/23/20 Unknown History RX: Ascorbic Acid [Vitamin C] 04/23/20 Unknown History RX: Diphenoxylate/Atropine 1 tab PO Q6H PRN #14 tablet 04/23/20 Unknown Rx [Lomotil] RX: Ergocalciferol(Vitamin D2)(Nf) 04/23/20 Unknown History [Vitamin D (Nf)] RX: Vitamin E (Dl,Tocopheryl Acet) 04/23/20 Unknown History [Vitamin E] RX: metroNIDAZOLE [Flagyl TAB] 500 mg PO Q12H #14 tablet 04/23/20 Unknown Rx Cetirizine HCl/Pseudoephedrine 1 each PO BID PRN #20 tab.er.12h 05/03/20 Unknown Rx [Zyrtec-D Tablet] Benzonatate [Tessalon Perles] 100 mg PO Q8HR #30 capsule 05/16/20 Unknown Rx RX: Prednisone [predniSONE 10 mg 10 mg PO .TAPER #21 tab.ds.pk 05/16/20 Unknown Rx (6-Day Pack, 21 Tabs)] RX: Prednisone [predniSONE 10 mg 10 mg PO .TAPER #1 tab.ds.pk 06/14/20 Unknown Rx (6-Day Pack, 21 Tabs)] RX: Albuterol Sulfate [Proair 1 - 2 puff IH Q4HR PRN #1 06/24/20 Unknown Rx Digihaler] aer.pw.bas Sulfamethoxazole/Trimethoprim 1 each PO BID #20 tablet 06/24/20 Unknown Rx [Bactrim DS TAB] RX: ALBUTEROL NEB's [Proventil 2.5 mg IH Q6HRT PRN #1 box 07/18/20 Unknown Rx 0.083% NEBS] RX: Albuterol Sulfate [Albuterol 0.63 mg IH Q4HR PRN #2 ml 08/23/20 Unknown Rx 0.63% NEBS] RX: Albuterol Sulfate [Proair 90 mcg IH Q4HR PRN #2 aer.pow.ba 08/23/20 Unknown Rx Respiclick] RX: Ipratropium (Nf) [Atrovent HFA 2 puff IH Q6HR PRN #1 inha 08/23/20 Unknown Rx 17MCG/PUFF] Ipratropium [Atrovent] 0.5 mg IH Q8HRT #1 box 09/16/20 Unknown Rx RX: ALBUTEROL NEB's [Proventil 2.5 mg IH TID PRN #1 box 09/16/20 Unknown Rx 0.083% NEBS] Famotidine [Pepcid] 20 mg PO BID #20 tablet 10/08/20 Unknown Rx Ondansetron [Zofran Odt] 4 mg PO Q8HR PRN #15 tab.rapdis 10/08/20 Unknown Rx RX: predniSONE [Deltasone] 40 mg PO QDAY 4 Days tab 10/08/20 Unknown Rx Ipratropium [Atrovent] 0.5 mg IH Q4HWA #1 box 10/24/20 Unknown Rx RX: Prednisone [predniSONE 10 mg 10 mg PO .TAPER #1 tab.ds.pk 10/24/20 Unknown Rx (6-Day Pack, 21 Tabs)] levoFLOXacin [Levaquin TAB] 500 mg PO QDAY #7 tablet 10/24/20 Unknown Rx RX: ALBUTEROL NEB's [Proventil 3 ml IH Q6H PRN 30 Days #75 ml 01/11/21 Unknown Rx 0.083% NEBS] RX: Fluticasone/Salmeterol [Advair 1 puff IH BID #1 01/11/21 Unknown Rx Diskus 500-50 mcg] RX: Ipratropium 0.06% [Atrovent] 2 spray NS Q8HR #1 bottle 01/11/21 Unknown Rx RX: Ipratropium [Atrovent NEB] 0.5 mg IH Q4HR #2 ml 01/11/21 Unknown Rx RX: levoFLOXacin [Levaquin TAB] 500 mg PO Q24HR #7 tablet 01/11/21 Unknown Rx RX: predniSONE [Deltasone] 20 mg PO QDAY #20 tab 01/11/21 Unknown Rx RX: predniSONE [Deltasone] 40 mg PO DAILY 5 Days #10 tablet 05/10/21 Unknown Rx Ipratropium (Nf) [Atrovent] 2 puff IH Q6HR PRN #1 inha 09/19/21 Unknown Rx RX: Prednisone [predniSONE 10 mg 10 mg PO .TAPER #1 tab.ds.pk 09/19/21 Unknown Rx (6-Day Pack, 21 Tabs)] Albuterol Sulfate [Albuterol 0.63% 0.63 mg IH Q4HR PRN #2 ml 10/20/21 Unknown Rx NEBS] Albuterol Sulfate [Proair 90 mcg IH Q4HR PRN #2 aer.pow.ba 10/20/21 Unknown Rx Respiclick] Ipratropium (Nf) [Atrovent] 2 puff IH Q6HR PRN #1 inha 10/20/21 Unknown Rx Ipratropium [Atrovent NEB] 0.5 mg IH Q4HR #2 ml 10/20/21 Unknown Rx RX: ALBUTEROL NEB's [Proventil 2.5 mg IH TID PRN #1 box 11/17/21 Unknown Rx 0.083% NEBS] RX: predniSONE [Deltasone] 40 mg PO QDAY 5 Days tab 11/17/21 Unknown Rx ED Physical Exam - General Limitations: No Limitations - Other Other exam information: General: Moderate respiratory Head: Atraumatic Eyes: normal appearance ENT: Moist mucous membranes Neck: Normal appearance, no midline tenderness Chest: Tachypneic, wheezing, respiratory CV: Regular rate and rhythm Abdomen: Soft, normal bowel sounds, nontender, nondistended, no rebound or guarding Back: Normal inspection Extremity: Normal inspection, full range of motion Neuro: Alert O x 3, no facial asymmetry, speech clear, no gross motor sensory deficit Skin: No rash ED Course Vital Signs 11/17/21 11/17/21 10:50 10:57 Temperature 98.7 F Pulse Rate 134 H Pulse Rate [ 122 H Anterior Bilateral Throughout] Respiratory 20 Rate Respiratory 24 Rate [Anterior Bilateral Throughout] Blood Pressure 130/87 [Left] O2 Sat by Pulse 94 Oximetry - Reevaluation(s) Reevaluation #1: 11/17/21 14:52 Patient feeling much better with ED treatment. She was no longer in distress and tolerating ambulation around the room. breath sounds clear but patient states she feels like she can use 1 more treatment repeat labs ordered and patient will be prepped for discharge ED Medical Decision Making - Lab Data Result diagrams: 11/17/21 11:09 11/17/21 11:09 Lab Results 11/17/21 11/17/21 11/17/21 Range/Units 11:09 11:09 11:09 WBC 15.5 H (4.5-11.0) K/mm3 RBC 5.29 H (3.65-5.03) M/mm3 Hgb 13.4 (10.1-14.3) gm/dl Hct 43.5 H (30.3-42.9) % MCV 82 (79-97) fl MCH 25 L (28-32) pg MCHC 31 (30-34) % RDW 15.9 H (13.2-15.2) % Plt Count 247 (140-440) K/mm3 Lymph % (Auto) 13.4 (13.4-35.0) % Wood % (Auto) 9.0 H (0.0-7.3) % Eos % (Auto) 3.7 (0.0-4.3) % Baso % (Auto) 0.5 (0.0-1.8) % Lymph # (Auto) 2.1 (1.2-5.4) K/mm3 Wood # (Auto) 1.4 H (0.0-0.8) K/mm3 Eos # (Auto) 0.6 H (0.0-0.4) K/mm3 Baso # (Auto) 0.1 (0.0-0.1) K/mm3 Seg Neutrophils % 73.4 H (40.0-70.0) % Seg Neutrophils # 11.4 H (1.8-7.7) K/mm3 Sodium 139 (137-145) mmol/L Potassium 3.9 (3.6-5.0) mmol/L Chloride 104.2 (98-107) mmol/L Carbon Dioxide 24 (22-30) mmol/L Anion Gap 15 mmol/L BUN 11 (7-17) mg/dL Creatinine 0.9 (0.6-1.2) mg/dL Estimated GFR > 60 ml/min BUN/Creatinine Ratio 12 % Glucose 161 H (65-100) mg/dL Calcium 8.8 (8.4-10.2) mg/dL HCG, Qual Negative (Negative) - Radiology Data Radiology results: report reviewed CHEST 1 VIEW 11/17/2021 10:48 AM INDICATION / CLINICAL INFORMATION: sob, wheeze. COMPARISON: 09/19/2021 FINDINGS: SUPPORT DEVICES: None. HEART / MEDIASTINUM: No significant abnormality. LUNGS / PLEURA: No significant pulmonary or pleural abnormality. No pneumothorax. ADDITIONAL FINDINGS: No significant additional findings. IMPRESSION: 1. No acute findings. Critical Care Time: Yes Critical care time in (mins) excluding proc time.: 35 Critical care attestation.: If time is entered above; I have spent that time in minutes in the direct care of this critically ill patient, excluding procedure time. Critical Care Time: 35 Minutes of critical care time excluding procedures were used in the care of the patient. I came immediately to the bedside upon patient's arrival. . I discussed treatment plan with the nursing team members. I reviewed electronic record. Patient required multiple interventions and reassessments including hours continuous nebulizations and repeat nebs. ED Disposition Clinical Impression: Acute asthma exacerbation Disposition: HOME / SELF CARE / HOMELESS Is pt being admited?: No Condition: Stable Instructions: Asthma, Adult Additional Instructions: Take the medication as prescribed. Follow-up with your doctor or doctor/clinic provided. Return if symptoms worsen as indicated by your discharge instructions. Prescriptions: RX: predniSONE [Deltasone] 40 mg PO QDAY 5 Days tab RX: ALBUTEROL NEB's [Proventil 0.083% NEBS] 2.5 mg IH TID PRN #1 box PRN Reason: Wheezing Referrals: PRIMARY CAREMD [Primary Care Provider] - 3-5 Days BHAVANI NAGY MD [Staff Physician] - 3-5 Days (Lung specialist) Time of Disposition: 15:07
[2021-11-17 11:54] LABS: Basophils # (Auto) 0.1 K/mm3 (0.0-0.1); Basophils % (Auto) 0.5 % (0.0-1.8); Eosinophils # (Auto) 0.6 K/mm3 (0.0-0.4); Eosinophils % (Auto) 3.7 % (0.0-4.3); Lymphocytes # (Auto) 2.1 K/mm3 (1.2-5.4); Lymphocytes % (Auto) 13.4 % (13.4-35.0); Mean Corpuscular HGB Conc 31 % (30-34); Mean Corpuscular Volume 82 fl (79-97); Monocytes # (Auto) 1.4 K/mm3 (0.0-0.8); Platelet Count 247 K/mm3 (140-440); Red Blood Count 5.29 M/mm3 (3.65-5.03); Red Cell Distribution Width 15.9 % (13.2-15.2)
--- NOTE | 2021-11-17 11:54 | XRay Report ---
CHEST 1 VIEW 11/17/2021 10:48 AM INDICATION / CLINICAL INFORMATION: sob, wheeze. COMPARISON: 09/19/2021 FINDINGS: SUPPORT DEVICES: None. HEART / MEDIASTINUM: No significant abnormality. LUNGS / PLEURA: No significant pulmonary or pleural abnormality. No pneumothorax. ADDITIONAL FINDINGS: No significant additional findings. IMPRESSION: 1. No acute findings. Signer Name: Rivas Gilmore MD Signed: 11/17/2021 11:49 AM Workstation Name: [email or web address]
[2021-11-17 12:31] LABS: BUN/Creatinine Ratio 12; Blood Urea Nitrogen 11 mg/dL (7-17); Calcium 8.8 mg/dL (8.4-10.2); Hemolysis Index 32
[2021-11-17 12:45] LABS: Hematocrit 43.5 % (30.3-42.9); Hemoglobin 13.4 gm/dl (10.1-14.3)
--- NOTE | 2021-11-18 11:03 | Electrocardiograph Report ---
[facility] Test Date: 2021-11-17 Test Time: 15:39:37 Pat Name: DAHIANA GERMAN Department: Room: Gender: F [employer]: KALEB : 1970 Requested By: MINE SHAW Order Number: [id number] Reading MD: Tanner Baker Measurements Intervals Adams Rate: 118 P: 50 MT: 145 QRS: 46 QRSD: 79 T: 67 QT: 317 QTc: 445 Interpretive Statements Sinus tachycardia Compared to ECG 08/24/2021 13:14:09 no significant change Electronically Signed On 11-18-2021 11:03:00 EST by Tanner Baker
== END 2021-11-17 16:40 | disposition home or self-care (01) ==
LOC: ED 10:43
DX: J45.901 Unspecified asthma with (acute) exacerbation (principal); K21.9 Gastro-esophageal reflux disease without esophagitis; Z88.0 Allergy status to penicillin; Z88.8 Allergy status to other drugs, medicaments and biological substances; Z79.899 Other long term (current) drug therapy; Z88.1 Allergy status to other antibiotic agents; Z88.5 Allergy status to narcotic agent
CPT/HCPCS: 36415; 71045; 80048; 84703; 85025; 93005; 94640; 94644; 96365; 96375; 99284; J2930; J3475

== ENCOUNTER 2021-11-29 20:03 | Emergency (ER) | payer MEDICARE ==
[2021-11-29] MEDS ORDERED: IPRATROPIUM/ALBUTEROL SULFATE 3 ML AMPUL.NEB IH ONE (20:10)
[2021-11-29] MEDS ORDERED: methylPREDNISolone Sod Succinate 125 MG/2 ML INJ IV ONE (20:11)
[2021-11-29] MEDS ORDERED: MAGNESIUM SULFATE 1 GM in SODIUM CHLORIDE 0.9% 50 ML IV ONE (20:12)
[2021-11-29] MEDS ORDERED: ALBUTEROL 2.5 MG/3 ML NEBU IH ONE (20:51)
[2021-11-29] MEDS ORDERED: MAGNESIUM SULFATE 2 GM/50 ML BAG IV ONE ×2 (20:57→20:58)
--- NOTE | 2021-11-29 23:10 | Emergency Department Report ---
ED Asthma HPI - General Chief Complaint: Adult Asthma Stated Complaint: SOB Time Seen by Provider: 11/29/21 20:54 Source: patient Mode of arrival: Ambulatory Limitations: No Limitations - History of Present Illness MD Complaint: "asthma attack", wheezing -: Gradual, days(s) (2) Asthma History: history of frequent attac, history of prior ED visit, previously intubated Severity: mild Context: recent URI Associated Symptoms: dry cough - Related Data Current Asthma Therapy: inhaled bronchodilator Home Medications Medication Instructions Recorded Confirmed Last Taken AtorvaSTATin [Lipitor] 40 mg PO QHS 01/12/20 04/23/20 Unknown Levothyroxine [Synthroid] 25 mcg PO QDAY 02/24/20 04/23/20 Unknown Ascorbic Acid [Vitamin C] 04/23/20 Unknown Cinnamon 04/23/20 Unknown Ergocalciferol(Vitamin D2)(Nf) 04/23/20 Unknown [Vitamin D (Nf)] Vitamin E (Dl,Tocopheryl Acet) 04/23/20 Unknown [Vitamin E] Previous Rx's Medication Instructions Recorded Last Taken Type Diphenoxylate/Atropine [Lomotil] 1 tab PO Q6H PRN #14 tablet 04/23/20 Unknown Rx metroNIDAZOLE [Flagyl TAB] 500 mg PO Q12H #14 tablet 04/23/20 Unknown Rx Cetirizine HCl/Pseudoephedrine 1 each PO BID PRN #20 tab.er.12h 05/03/20 Unknown Rx [Zyrtec-D Tablet] Benzonatate [Tessalon Perles] 100 mg PO Q8HR #30 capsule 05/16/20 Unknown Rx Prednisone [predniSONE 10 mg 10 mg PO .TAPER #21 tab.ds.pk 05/16/20 Unknown Rx (6-Day Pack, 21 Tabs)] Prednisone [predniSONE 10 mg 10 mg PO .TAPER #1 tab.ds.pk 06/14/20 Unknown Rx (6-Day Pack, 21 Tabs)] Albuterol Sulfate [Proair 1 - 2 puff IH Q4HR PRN #1 06/24/20 Unknown Rx Digihaler] aer.pw.bas Sulfamethoxazole/Trimethoprim 1 each PO BID #20 tablet 06/24/20 Unknown Rx [Bactrim DS TAB] ALBUTEROL NEB's [Proventil 0.083% 2.5 mg IH Q6HRT PRN #1 box 07/18/20 Unknown Rx NEBS] Albuterol Sulfate [Albuterol 0.63% 0.63 mg IH Q4HR PRN #2 ml 08/23/20 Unknown Rx NEBS] Albuterol Sulfate [Proair 90 mcg IH Q4HR PRN #2 aer.pow.ba 08/23/20 Unknown Rx Respiclick] Ipratropium (Nf) [Atrovent HFA 2 puff IH Q6HR PRN #1 inha 08/23/20 Unknown Rx 17MCG/PUFF] ALBUTEROL NEB's [Proventil 0.083% 2.5 mg IH TID PRN #1 box 09/16/20 Unknown Rx NEBS] Ipratropium [Atrovent] 0.5 mg IH Q8HRT #1 box 09/16/20 Unknown Rx Famotidine [Pepcid] 20 mg PO BID #20 tablet 10/08/20 Unknown Rx Ondansetron [Zofran Odt] 4 mg PO Q8HR PRN #15 tab.rapdis 10/08/20 Unknown Rx predniSONE [Deltasone] 40 mg PO QDAY 4 Days tab 10/08/20 Unknown Rx Ipratropium [Atrovent] 0.5 mg IH Q4HWA #1 box 10/24/20 Unknown Rx Prednisone [predniSONE 10 mg 10 mg PO .TAPER #1 tab.ds.pk 10/24/20 Unknown Rx (6-Day Pack, 21 Tabs)] levoFLOXacin [Levaquin TAB] 500 mg PO QDAY #7 tablet 10/24/20 Unknown Rx ALBUTEROL NEB's [Proventil 0.083% 3 ml IH Q6H PRN 30 Days #75 ml 01/11/21 Unknown Rx NEBS] Fluticasone/Salmeterol [Advair 1 puff IH BID #1 01/11/21 Unknown Rx Diskus 500-50 mcg] Ipratropium 0.06% [Atrovent] 2 spray NS Q8HR #1 bottle 01/11/21 Unknown Rx Ipratropium [Atrovent NEB] 0.5 mg IH Q4HR #2 ml 01/11/21 Unknown Rx levoFLOXacin [Levaquin TAB] 500 mg PO Q24HR #7 tablet 01/11/21 Unknown Rx predniSONE [Deltasone] 20 mg PO QDAY #20 tab 01/11/21 Unknown Rx predniSONE [Deltasone] 40 mg PO DAILY 5 Days #10 tablet 05/10/21 Unknown Rx Ipratropium (Nf) [Atrovent] 2 puff IH Q6HR PRN #1 inha 09/19/21 Unknown Rx Prednisone [predniSONE 10 mg 10 mg PO .TAPER #1 tab.ds.pk 09/19/21 Unknown Rx (6-Day Pack, 21 Tabs)] Albuterol Sulfate [Albuterol 0.63% 0.63 mg IH Q4HR PRN #2 ml 10/20/21 Unknown Rx NEBS] Albuterol Sulfate [Proair 90 mcg IH Q4HR PRN #2 aer.pow.ba 10/20/21 Unknown Rx Respiclick] Ipratropium (Nf) [Atrovent] 2 puff IH Q6HR PRN #1 inha 10/20/21 Unknown Rx Ipratropium [Atrovent NEB] 0.5 mg IH Q4HR #2 ml 10/20/21 Unknown Rx ALBUTEROL NEB's [Proventil 0.083% 2.5 mg IH TID PRN #1 box 11/17/21 Unknown Rx NEBS] predniSONE [Deltasone] 40 mg PO QDAY 5 Days tab 11/17/21 Unknown Rx Montelukast [Singulair] 10 mg PO QPM #14 tablet 11/29/21 Unknown Rx predniSONE [Deltasone] 50 mg PO QDAY #5 tab 11/29/21 Unknown Rx Allergies Allergy/AdvReac Type Severity Reaction Status Date / Time aspirin Allergy Anaphylaxis Verified 10/20/21 03:10 azithromycin [From Zithromax] Allergy Anaphylaxis Verified 10/20/21 03:10 doxycycline Allergy Rash Verified 10/20/21 03:10 ketorolac tromethamine Allergy Anaphylaxis Verified 10/20/21 03:10 [From Toradol] Latex, Natural Rubber Allergy Angioedema Verified 10/20/21 03:10 morphine Allergy Shortness Verified 10/20/21 03:10 of Breath NSAIDS (Non-Steroidal Allergy Anaphylaxis Verified 10/20/21 03:10 Anti-Inflamma Penicillins Allergy Hives Verified 10/20/21 03:10 ED Review of Systems ROS: Stated complaint: SOB Other details as noted in HPI Comment: All other systems reviewed and negative ED Past Medical Hx - Past Medical History Previous Medical History?: Yes Hx Hypertension: No Hx Heart Attack/AMI: No Hx Congestive Heart Failure: No Hx Diabetes: No Hx Deep Vein Thrombosis: No Hx Pulmonary Embolism: No Hx GERD: Yes Hx Liver Disease: No Hx Renal Disease: No Hx Sickle Cell Disease: No Hx Arthritis: No Hx Seizures: No Hx Kidney Stones: No Hx Asthma: Yes Hx COPD: No Hx Tuberculosis: No Hx Dementia: No Hx HIV: No Additional medical history: sinus problems. Prior Intubations x3. Obesity. hypothyroid - Surgical History Past Surgical History?: Yes Hx Coronary Stent: No Hx Open Heart Surgery: No Hx Pacemaker: No Hx Internal Defibrillator: No Hx Cholecystectomy: No Hx Appendectomy: No Hx Breast Surgery: No Additional Surgical History: x4, umbilical hernia repair, sinus surgeries, D&C. thyroid removal. tubligation - Social History Smoking Status: Never Smoker - Medications Home Medications: Home Medications Medication Instructions Recorded Confirmed Last Taken Type AtorvaSTATin [Lipitor] 40 mg PO QHS 01/12/20 04/23/20 Unknown History Levothyroxine [Synthroid] 25 mcg PO QDAY 02/24/20 04/23/20 Unknown History Ascorbic Acid [Vitamin C] 04/23/20 Unknown History Cinnamon 04/23/20 Unknown History Diphenoxylate/Atropine [Lomotil] 1 tab PO Q6H PRN #14 tablet 04/23/20 Unknown Rx Ergocalciferol(Vitamin D2)(Nf) 04/23/20 Unknown History [Vitamin D (Nf)] Vitamin E (Dl,Tocopheryl Acet) 04/23/20 Unknown History [Vitamin E] metroNIDAZOLE [Flagyl TAB] 500 mg PO Q12H #14 tablet 04/23/20 Unknown Rx Cetirizine HCl/Pseudoephedrine 1 each PO BID PRN #20 tab.er.12h 05/03/20 Unknown Rx [Zyrtec-D Tablet] Benzonatate [Tessalon Perles] 100 mg PO Q8HR #30 capsule 05/16/20 Unknown Rx Prednisone [predniSONE 10 mg 10 mg PO .TAPER #21 tab.ds.pk 05/16/20 Unknown Rx (6-Day Pack, 21 Tabs)] Prednisone [predniSONE 10 mg 10 mg PO .TAPER #1 tab.ds.pk 06/14/20 Unknown Rx (6-Day Pack, 21 Tabs)] Albuterol Sulfate [Proair 1 - 2 puff IH Q4HR PRN #1 06/24/20 Unknown Rx Digihaler] aer.pw.bas Sulfamethoxazole/Trimethoprim 1 each PO BID #20 tablet 06/24/20 Unknown Rx [Bactrim DS TAB] ALBUTEROL NEB's [Proventil 0.083% 2.5 mg IH Q6HRT PRN #1 box 07/18/20 Unknown Rx NEBS] Albuterol Sulfate [Albuterol 0.63% 0.63 mg IH Q4HR PRN #2 ml 08/23/20 Unknown Rx NEBS] Albuterol Sulfate [Proair 90 mcg IH Q4HR PRN #2 aer.pow.ba 08/23/20 Unknown Rx Respiclick] Ipratropium (Nf) [Atrovent HFA 2 puff IH Q6HR PRN #1 inha 08/23/20 Unknown Rx 17MCG/PUFF] ALBUTEROL NEB's [Proventil 0.083% 2.5 mg IH TID PRN #1 box 09/16/20 Unknown Rx NEBS] Ipratropium [Atrovent] 0.5 mg IH Q8HRT #1 box 09/16/20 Unknown Rx Famotidine [Pepcid] 20 mg PO BID #20 tablet 10/08/20 Unknown Rx Ondansetron [Zofran Odt] 4 mg PO Q8HR PRN #15 tab.rapdis 10/08/20 Unknown Rx predniSONE [Deltasone] 40 mg PO QDAY 4 Days tab 10/08/20 Unknown Rx Ipratropium [Atrovent] 0.5 mg IH Q4HWA #1 box 10/24/20 Unknown Rx Prednisone [predniSONE 10 mg 10 mg PO .TAPER #1 tab.ds.pk 10/24/20 Unknown Rx (6-Day Pack, 21 Tabs)] levoFLOXacin [Levaquin TAB] 500 mg PO QDAY #7 tablet 10/24/20 Unknown Rx ALBUTEROL NEB's [Proventil 0.083% 3 ml IH Q6H PRN 30 Days #75 ml 01/11/21 Unkno wn Rx NEBS] Fluticasone/Salmeterol [Advair 1 puff IH BID #1 01/11/21 Unknown Rx Diskus 500-50 mcg] Ipratropium 0.06% [Atrovent] 2 spray NS Q8HR #1 bottle 01/11/21 Unknown Rx Ipratropium [Atrovent NEB] 0.5 mg IH Q4HR #2 ml 01/11/21 Unknown Rx levoFLOXacin [Levaquin TAB] 500 mg PO Q24HR #7 tablet 01/11/21 Unknown Rx predniSONE [Deltasone] 20 mg PO QDAY #20 tab 01/11/21 Unknown Rx predniSONE [Deltasone] 40 mg PO DAILY 5 Days #10 tablet 05/10/21 Unknown Rx Ipratropium (Nf) [Atrovent] 2 puff IH Q6HR PRN #1 inha 09/19/21 Unknown Rx Prednisone [predniSONE 10 mg 10 mg PO .TAPER #1 tab.ds.pk 09/19/21 Unknown Rx (6-Day Pack, 21 Tabs)] Albuterol Sulfate [Albuterol 0.63% 0.63 mg IH Q4HR PRN #2 ml 10/20/21 Unknown Rx NEBS] Albuterol Sulfate [Proair 90 mcg IH Q4HR PRN #2 aer.pow.ba 10/20/21 Unknown Rx Respiclick] Ipratropium (Nf) [Atrovent] 2 puff IH Q6HR PRN #1 inha 10/20/21 Unknown Rx Ipratropium [Atrovent NEB] 0.5 mg IH Q4HR #2 ml 10/20/21 Unknown Rx ALBUTEROL NEB's [Proventil 0.083% 2.5 mg IH TID PRN #1 box 11/17/21 Unknown Rx NEBS] predniSONE [Deltasone] 40 mg PO QDAY 5 Days tab 11/17/21 Unknown Rx Montelukast [Singulair] 10 mg PO QPM #14 tablet 11/29/21 Unknown Rx predniSONE [Deltasone] 50 mg PO QDAY #5 tab 11/29/21 Unknown Rx ED Physical Exam - General Limitations: No Limitations General appearance: alert, in no apparent distress - Head Head exam: Present: atraumatic, normocephalic - Eye Eye exam: Present: normal appearance, PERRL, EOMI - ENT ENT exam: Present: mucous membranes moist - Neck Neck exam: Present: normal inspection - Respiratory Respiratory exam: Present: wheezes, decreased breath sounds. Absent: normal lung sounds bilaterally, respiratory distress, rales, rhonchi, chest wall tenderness, accessory muscle use - Cardiovascular Cardiovascular Exam: Present: regular rate, normal rhythm. Absent: systolic murmur, diastolic murmur, rubs, gallop - GI/Abdominal GI/Abdominal exam: Present: soft, normal bowel sounds - Extremities Exam Extremities exam: Present: normal inspection - Back Exam Back exam: Present: normal inspection - Neurological Exam Neurological exam: Present: alert, oriented X3 - Psychiatric Psychiatric exam: Present: normal affect, normal mood - Skin Skin exam: Present: warm, dry, intact, normal color. Absent: rash ED Course Vital Signs 11/29/21 20:11 Temperature 98.1 F Pulse Rate 124 H Respiratory 18 Rate Blood Pressure 141/80 O2 Sat by Pulse 94 Oximetry ED Medical Decision Making - Medical Decision Making 51-year-old female with history of recurrent asthma exacerbations and a previous history of intubation several years ago presents to ED complaining asthma flareup due to the weather and URI symptoms. She had no abdominal status no saddle respirations no belly breathing or signs of impending ventilatory failure. She was treated accordingly with 10 mg of albuterol 1 of Atrovent as well as 125 of Solu-Medrol hand magnesium sulfate. At the completion of her treatment however her breathing significantly improved ease of breathing significantly improved as well. Up until hour and half to 2 hours after treatment she was resting comfortably in her bed with no acute distress she was able to ambulate and maintain a normal saturation she speaking in full sentences no acute distress. Therapies: Solu-Medrol, albuterol, Atrovent, magnesium Reassessment: Patient improved with albuterol and ipratropium in less than 3 hours. Disposition: Discharge home with return precautions. Advised to follow up with primary care physician within next 24-48 hours. Aside from this acute exacerbation patient has been well controlled on baseline home regimen. Rx short steroid course, albuterol, Singulair, Flovent Critical care attestation.: If time is entered above; I have spent that time in minutes in the direct care of this critically ill patient, excluding procedure time. ED Disposition Disposition: HOME / SELF CARE / HOMELESS Condition: Stable Instructions: Asthma, Adult, How to Use a Metered Dose Inhaler, Form - Asthma Action Plan, Adult, Peak Flow Meter, Asthma, Adult, [id number], Asthma Attack, Cough, Adult, Asthma Attack Prevention, Adult Prescriptions: predniSONE [Deltasone] 50 mg PO QDAY #5 tab Montelukast [Singulair] 10 mg PO QPM #14 tablet Referrals: [facility] [Provider Group] - 3-5 Days PRIMARY CARE,MD [Primary Care Provider] - 3-5 Days
[2021-11-30 01:00] VITALS: BP 139/87
== END 2021-11-30 00:54 | disposition home or self-care (01) ==
LOC: ED 20:03
DX: J45.901 Unspecified asthma with (acute) exacerbation (principal); Z88.6 Allergy status to analgesic agent; Z91.040 Latex allergy status; Z88.0 Allergy status to penicillin; Z88.1 Allergy status to other antibiotic agents
CPT/HCPCS: 94640; 96365; 96375; 99283; J2930; J3475

== ENCOUNTER 2021-12-16 17:42 | Emergency (ER) | payer MEDICARE ==
[2021-12-16 18:01] VITALS: BP 128/78
[2021-12-16] MEDS ORDERED: ALBUTEROL 2.5 MG/3 ML NEBU IH ONE (18:05)
[2021-12-16] MEDS ORDERED: IPRATROPIUM 0.02% NEBU 2.5 ML IH ONE (18:06)
[2021-12-16] MEDS ORDERED: diphenhydrAMINE 25 MG CAP PO STA (18:36)
[2021-12-16] MEDS ORDERED: dexAMETHasone 4 MG/ML VIAL IM ONE (18:36)
--- NOTE | 2021-12-16 18:41 | Emergency Department Report ---
ED Asthma HPI - General Chief Complaint: Adult Asthma Stated Complaint: CHRONIC ASTHMATIC Time Seen by Provider: 12/16/21 18:35 Source: patient Mode of arrival: Ambulatory Limitations: No Limitations - History of Present Illness Initial Comments: 51-year-old -[place] female with a known past medical history of asthma presents emergency department complaining of an asthma flareup secondary to the abrupt change in weather. Symptoms are associated with cough and congestion and burning to the chest primarily with coughing spells which also are productive at times with some yellowish mucus and shortness of breath. She reports no hemoptysis nonsymptomatic easy, no nausea, vomiting or diarrhea, no abdominal pain or constipation, no fever, chills or sweats. Patient is requesting duoneb treatments MD Complaint: "asthma attack", wheezing -: Gradual Context: none known Associated Symptoms: none - Related Data Home Medications Medication Instructions Recorded Confirmed Last Taken AtorvaSTATin [Lipitor] 40 mg PO QHS 01/12/20 04/23/20 Unknown Levothyroxine [Synthroid] 25 mcg PO QDAY 02/24/20 04/23/20 Unknown Ascorbic Acid [Vitamin C] 04/23/20 Unknown Cinnamon 04/23/20 Unknown Ergocalciferol(Vitamin D2)(Nf) 04/23/20 Unknown [Vitamin D (Nf)] Vitamin E (Dl,Tocopheryl Acet) 04/23/20 Unknown [Vitamin E] Previous Rx's Medication Instructions Recorded Last Taken Type Diphenoxylate/Atropine [Lomotil] 1 tab PO Q6H PRN #14 tablet 04/23/20 Unknown Rx metroNIDAZOLE [Flagyl TAB] 500 mg PO Q12H #14 tablet 04/23/20 Unknown Rx Cetirizine HCl/Pseudoephedrine 1 each PO BID PRN #20 tab.er.12h 05/03/20 Unknown Rx [Zyrtec-D Tablet] Benzonatate [Tessalon Perles] 100 mg PO Q8HR #30 capsule 05/16/20 Unknown Rx Prednisone [predniSONE 10 mg 10 mg PO .TAPER #21 tab.ds.pk 05/16/20 Unknown Rx (6-Day Pack, 21 Tabs)] Prednisone [predniSONE 10 mg 10 mg PO .TAPER #1 tab.ds.pk 06/14/20 Unknown Rx (6-Day Pack, 21 Tabs)] Albuterol Sulfate [Proair 1 - 2 puff IH Q4HR PRN #1 06/24/20 Unknown Rx Digihaler] aer.pw.bas Sulfamethoxazole/Trimethoprim 1 each PO BID #20 tablet 06/24/20 Unknown Rx [Bactrim DS TAB] ALBUTEROL NEB's [Proventil 0.083% 2.5 mg IH Q6HRT PRN #1 box 07/18/20 Unknown Rx NEBS] Albuterol Sulfate [Albuterol 0.63% 0.63 mg IH Q4HR PRN #2 ml 08/23/20 Unknown Rx NEBS] Albuterol Sulfate [Proair 90 mcg IH Q4HR PRN #2 aer.pow.ba 08/23/20 Unknown Rx Respiclick] Ipratropium (Nf) [Atrovent HFA 2 puff IH Q6HR PRN #1 inha 08/23/20 Unknown Rx 17MCG/PUFF] ALBUTEROL NEB's [Proventil 0.083% 2.5 mg IH TID PRN #1 box 09/16/20 Unknown Rx NEBS] Ipratropium [Atrovent] 0.5 mg IH Q8HRT #1 box 09/16/20 Unknown Rx Famotidine [Pepcid] 20 mg PO BID #20 tablet 10/08/20 Unknown Rx Ondansetron [Zofran Odt] 4 mg PO Q8HR PRN #15 tab.rapdis 10/08/20 Unknown Rx predniSONE [Deltasone] 40 mg PO QDAY 4 Days tab 10/08/20 Unknown Rx Ipratropium [Atrovent] 0.5 mg IH Q4HWA #1 box 10/24/20 Unknown Rx Prednisone [predniSONE 10 mg 10 mg PO .TAPER #1 tab.ds.pk 10/24/20 Unknown Rx (6-Day Pack, 21 Tabs)] levoFLOXacin [Levaquin TAB] 500 mg PO QDAY #7 tablet 10/24/20 Unknown Rx ALBUTEROL NEB's [Proventil 0.083% 3 ml IH Q6H PRN 30 Days #75 ml 01/11/21 Unknown Rx NEBS] Fluticasone/Salmeterol [Advair 1 puff IH BID #1 01/11/21 Unknown Rx Diskus 500-50 mcg] Ipratropium 0.06% [Atrovent] 2 spray NS Q8HR #1 bottle 01/11/21 Unknown Rx Ipratropium [Atrovent NEB] 0.5 mg IH Q4HR #2 ml 01/11/21 Unknown Rx levoFLOXacin [Levaquin TAB] 500 mg PO Q24HR #7 tablet 01/11/21 Unknown Rx predniSONE [Deltasone] 20 mg PO QDAY #20 tab 01/11/21 Unknown Rx predniSONE [Deltasone] 40 mg PO DAILY 5 Days #10 tablet 05/10/21 Unknown Rx Ipratropium (Nf) [Atrovent] 2 puff IH Q6HR PRN #1 inha 09/19/21 Unknown Rx Prednisone [predniSONE 10 mg 10 mg PO .TAPER #1 tab.ds.pk 09/19/21 Unknown Rx (6-Day Pack, 21 Tabs)] Albuterol Sulfate [Albuterol 0.63% 0.63 mg IH Q4HR PRN #2 ml 10/20/21 Unknown Rx NEBS] Albuterol Sulfate [Proair 90 mcg IH Q4HR PRN #2 aer.pow.ba 10/20/21 Unknown Rx Respiclick] Ipratropium (Nf) [Atrovent] 2 puff IH Q6HR PRN #1 inha 10/20/21 Unknown Rx Ipratropium [Atrovent NEB] 0.5 mg IH Q4HR #2 ml 10/20/21 Unknown Rx ALBUTEROL NEB's [Proventil 0.083% 2.5 mg IH TID PRN #1 box 11/17/21 Unknown Rx NEBS] predniSONE [Deltasone] 40 mg PO QDAY 5 Days tab 11/17/21 Unknown Rx Montelukast [Singulair] 10 mg PO QPM #14 tablet 11/29/21 Unknown Rx predniSONE [Deltasone] 50 mg PO QDAY #5 tab 11/29/21 Unknown Rx Allergies Allergy/AdvReac Type Severity Reaction Status Date / Time aspirin Allergy Anaphylaxis Verified 10/20/21 03:10 azithromycin [From Zithromax] Allergy Anaphylaxis Verified 10/20/21 03:10 doxycycline Allergy Rash Verified 10/20/21 03:10 ketorolac tromethamine Allergy Anaphylaxis Verified 10/20/21 03:10 [From Toradol] Latex, Natural Rubber Allergy Angioedema Verified 10/20/21 03:10 morphine Allergy Shortness Verified 10/20/21 03:10 of Breath NSAIDS (Non-Steroidal Allergy Anaphylaxis Verified 10/20/21 03:10 Anti-Inflamma Penicillins Allergy Hives Verified 10/20/21 03:10 ED Review of Systems ROS: Stated complaint: CHRONIC ASTHMATIC Other details as noted in HPI Comment: All other systems reviewed and negative ED Past Medical Hx - Past Medical History Hx Hypertension: No Hx Heart Attack/AMI: No Hx Congestive Heart Failure: No Hx Diabetes: No Hx Deep Vein Thrombosis: No Hx Pulmonary Embolism: No Hx GERD: Yes Hx Liver Disease: No Hx Renal Disease: No Hx Sickle Cell Disease: No Hx Arthritis: No Hx Seizures: No Hx Kidney Stones: No Hx Asthma: Yes Hx COPD: No Hx Tuberculosis: No Hx Dementia: No Hx HIV: No Additional medical history: sinus problems. Prior Intubations x3. Obesity. hypothyroid - Surgical History Hx Coronary Stent: No Hx Open Heart Surgery: No Hx Pacemaker: No Hx Internal Defibrillator: No Hx Cholecystectomy: No Hx Appendectomy: No Hx Breast Surgery: No Additional Surgical History: x4, umbilical hernia repair, sinus surgeries, D&C. thyroid removal. tubligation - Social History Smoking Status: Never Smoker - Medications Home Medications: Home Medications Medication Instructions Recorded Confirmed Last Taken Type AtorvaSTATin [Lipitor] 40 mg PO QHS 01/12/20 04/23/20 Unknown History Levothyroxine [Synthroid] 25 mcg PO QDAY 02/24/20 04/23/20 Unknown History Ascorbic Acid [Vitamin C] 04/23/20 Unknown History Cinnamon 04/23/20 Unknown History Diphenoxylate/Atropine [Lomotil] 1 tab PO Q6H PRN #14 tablet 04/23/20 Unknown Rx Ergocalciferol(Vitamin D2)(Nf) 04/23/20 Unknown History [Vitamin D (Nf)] Vitamin E (Dl,Tocopheryl Acet) 04/23/20 Unknown History [Vitamin E] metroNIDAZOLE [Flagyl TAB] 500 mg PO Q12H #14 tablet 04/23/20 Unknown Rx Cetirizine HCl/Pseudoephedrine 1 each PO BID PRN #20 tab.er.12h 05/03/20 Unknown Rx [Zyrtec-D Tablet] Benzonatate [Tessalon Perles] 100 mg PO Q8HR #30 capsule 05/16/20 Unknown Rx Prednisone [predniSONE 10 mg 10 mg PO .TAPER #21 tab.ds.pk 05/16/20 Unknown Rx (6-Day Pack, 21 Tabs)] Prednisone [predniSONE 10 mg 10 mg PO .TAPER #1 tab.ds.pk 06/14/20 Unknown Rx (6-Day Pack, 21 Tabs)] Albuterol Sulfate [Proair 1 - 2 puff IH Q4HR PRN #1 06/24/20 Unknown Rx Digihaler] aer.pw.bas Sulfamethoxazole/Trimethoprim 1 each PO BID #20 tablet 06/24/20 Unknown Rx [Bactrim DS TAB] ALBUTEROL NEB's [Proventil 0.083% 2.5 mg IH Q6HRT PRN #1 box 07/18/20 Unknown Rx NEBS] Albuterol Sulfate [Albuterol 0.63% 0.63 mg IH Q4HR PRN #2 ml 08/23/20 Unknown Rx NEBS] Albuterol Sulfate [Proair 90 mcg IH Q4HR PRN #2 aer.pow.ba 08/23/20 Unknown Rx Respiclick] Ipratropium (Nf) [Atrovent HFA 2 puff IH Q6HR PRN #1 inha 08/23/20 Unknown Rx 17MCG/PUFF] ALBUTEROL NEB's [Proventil 0.083% 2.5 mg IH TID PRN #1 box 09/16/20 Unknown Rx NEBS] Ipratropium [Atrovent] 0.5 mg IH Q8HRT #1 box 09/16/20 Unknown Rx Famotidine [Pepcid] 20 mg PO BID #20 tablet 10/08/20 Unknown Rx Ondansetron [Zofran Odt] 4 mg PO Q8HR PRN #15 tab.rapdis 10/08/20 Unknown Rx predniSONE [Deltasone] 40 mg PO QDAY 4 Days tab 10/08/20 Unknown Rx Ipratropium [Atrovent] 0.5 mg IH Q4HWA #1 box 10/24/20 Unknown Rx Prednisone [predniSONE 10 mg 10 mg PO .TAPER #1 tab.ds.pk 10/24/20 Unknown Rx (6-Day Pack, 21 Tabs)] levoFLOXacin [Levaquin TAB] 500 mg PO QDAY #7 tablet 10/24/20 Unknown Rx ALBUTEROL NEB's [Proventil 0.083% 3 ml IH Q6H PRN 30 Days #75 ml 01/11/21 Unknown Rx NEBS] Fluticasone/Salmeterol [Advair 1 puff IH BID #1 01/11/21 Unknown Rx Diskus 500-50 mcg] Ipratropium 0.06% [Atrovent] 2 spray NS Q8HR #1 bottle 01/11/21 Unknown Rx Ipratropium [Atrovent NEB] 0.5 mg IH Q4HR #2 ml 01/11/21 Unknown Rx levoFLOXacin [Levaquin TAB] 500 mg PO Q24HR #7 tablet 01/11/21 Unknown Rx predniSONE [Deltasone] 20 mg PO QDAY #20 tab 01/11/21 Unknown Rx predniSONE [Deltasone] 40 mg PO DAILY 5 Days #10 tablet 05/10/21 Unknown Rx Ipratropium (Nf) [Atrovent] 2 puff IH Q6HR PRN #1 inha 09/19/21 Unknown Rx Prednisone [predniSONE 10 mg 10 mg PO .TAPER #1 tab.ds.pk 09/19/21 Unknown Rx (6-Day Pack, 21 Tabs)] Albuterol Sulfate [Albuterol 0.63% 0.63 mg IH Q4HR PRN #2 ml 10/20/21 Unknown Rx NEBS] Albuterol Sulfate [Proair 90 mcg IH Q4HR PRN #2 aer.pow.ba 10/20/21 Unknown Rx Respiclick] Ipratropium (Nf) [Atrovent] 2 puff IH Q6HR PRN #1 inha 10/20/21 Unknown Rx Ipratropium [Atrovent NEB] 0.5 mg IH Q4HR #2 ml 10/20/21 Unknown Rx ALBUTEROL NEB's [Proventil 0.083% 2.5 mg IH TID PRN #1 box 11/17/21 Unknown Rx NEBS] predniSONE [Deltasone] 40 mg PO QDAY 5 Days tab 11/17/21 Unknown Rx Montelukast [Singulair] 10 mg PO QPM #14 tablet 11/29/21 Unknown Rx predniSONE [Deltasone] 50 mg PO QDAY #5 tab 02/23/22 Unknown Rx ED Physical Exam - General Limitations: No Limitations General appearance: alert, in no apparent distress - Head Head exam: Present: atraumatic, normocephalic - Eye Eye exam: Present: normal appearance - ENT ENT exam: Present: mucous membranes moist - Neck Neck exam: Present: normal inspection - Respiratory Respiratory exam: Present: normal lung sounds bilaterally, wheezes. Absent: respiratory distress, rales, rhonchi, accessory muscle use, decreased breath sounds - Cardiovascular Cardiovascular Exam: Present: regular rate, normal rhythm. Absent: systolic murmur, diastolic murmur, rubs, gallop - GI/Abdominal GI/Abdominal exam: Present: soft, normal bowel sounds - Extremities Exam Extremities exam: Present: normal inspection, normal capillary refill - Back Exam Back exam: Present: normal inspection. Absent: CVA tenderness (R), CVA tenderness (L) - Neurological Exam Neurological exam: Present: alert, oriented X3, CN II-XII intact, normal gait - Psychiatric Psychiatric exam: Present: normal affect, normal mood - Skin Skin exam: Present: warm, dry, intact, normal color. Absent: rash ED Course Vital Signs 12/16/21 17:58 Temperature 98.8 F Pulse Rate 114 H Respiratory 20 Rate Blood Pressure 128/78 O2 Sat by Pulse 96 Oximetry Critical care attestation.: If time is entered above; I have spent that time in minutes in the direct care of this critically ill patient, excluding procedure time. ED Disposition Condition: Stable
--- NOTE | 2021-12-16 20:24 | XRay Report ---
CHEST 2 VIEWS INDICATION / CLINICAL INFORMATION: asthma wheezing and sob. COMPARISON: 11/17/2021 FINDINGS: SUPPORT DEVICES: None. HEART / MEDIASTINUM: No significant abnormality. LUNGS / PLEURA: No significant pulmonary or pleural abnormality. No pneumothorax. ADDITIONAL FINDINGS: No significant additional findings. IMPRESSION: 1. No acute findings. Signer Name: Deni Dumas MD Signed: 12/16/2021 8:20 PM Workstation Name: [id number]
== END 2021-12-16 21:24 ==
LOC: ED 17:42
DX: J45.901 Unspecified asthma with (acute) exacerbation (principal); R05.9 Cough, unspecified; Z88.6 Allergy status to analgesic agent; Z88.0 Allergy status to penicillin; Z91.040 Latex allergy status; Z88.1 Allergy status to other antibiotic agents; Z88.5 Allergy status to narcotic agent
CPT/HCPCS: 71046; 94640; 96372; 99283; J1100

== ENCOUNTER 2022-02-15 10:56 | Emergency (ER) | payer MEDICARE ==
[2022-02-15 11:59] VITALS: BP 100/72
[2022-02-15] MEDS ORDERED: IPRATROPIUM 0.02% NEBU 2.5 ML IH ONE (16:03)
[2022-02-15] MEDS ORDERED: ALBUTEROL 2.5 MG/3 ML NEBU IH ONE ×2 (16:03→16:04)
[2022-02-15] MEDS ORDERED: methylPREDNISolone Sod Succinate 125 MG/2 ML INJ IM ONE (16:06)
--- NOTE | 2022-02-15 16:34 | XRay Report ---
CHEST 2 VIEWS INDICATION / CLINICAL INFORMATION: shortness of breath. COMPARISON: 12/16/2021 FINDINGS: SUPPORT DEVICES: None. HEART / MEDIASTINUM: No significant abnormality. LUNGS / PLEURA: No significant pulmonary or pleural abnormality. No pneumothorax. ADDITIONAL FINDINGS: No significant additional findings. IMPRESSION: 1. No acute findings. Signer Name: Rivas Gilmore MD Signed: 02/15/2022 4:27 PM Workstation Name: [id number]
--- NOTE | 2022-02-15 16:41 | Emergency Department Report ---
ED Shortness of Breath HPI - General Chief Complaint: Dyspnea/Respdistress Stated Complaint: CHRONIC ASTHMA Source: patient Mode of arrival: Ambulatory Limitations: No Limitations - History of Present Illness Initial Comments: 51-year-old female presents to the ED complaining wheezing x3 days. She states that she has a history of asthma. She states she feels that she is having an asthma attack. Patient has not used her asthma inhaler x3 days. She denies any chest pain,abdominal pain ,fever or chills. Patient is alert and oriented x3. No acute distress noted. No ill appearance noted. She denies any intubation any prior . MD Complaint: shortness of breath, "asthma attack" Onset/Timin -: days(s) Known History Of: asthma - Related Data Home Medications Medication Instructions Recorded Confirmed Last Taken AtorvaSTATin [Lipitor] 40 mg PO QHS 01/12/20 04/23/20 Unknown Levothyroxine [Synthroid] 25 mcg PO QDAY 02/24/20 04/23/20 Unknown Ascorbic Acid [Vitamin C] 04/23/20 Unknown Cinnamon 04/23/20 Unknown Ergocalciferol(Vitamin D2)(Nf) 04/23/20 Unknown [Vitamin D (Nf)] Vitamin E (Dl,Tocopheryl Acet) 04/23/20 Unknown [Vitamin E] Previous Rx's Medication Instructions Recorded Last Taken Type Diphenoxylate/Atropine [Lomotil] 1 tab PO Q6H PRN #14 tablet 04/23/20 Unknown Rx metroNIDAZOLE [Flagyl TAB] 500 mg PO Q12H #14 tablet 04/23/20 Unknown Rx Cetirizine HCl/Pseudoephedrine 1 each PO BID PRN #20 tab.er.12h 05/03/20 Unknown Rx [Zyrtec-D Tablet] Benzonatate [Tessalon Perles] 100 mg PO Q8HR #30 capsule 05/16/20 Unknown Rx Prednisone [predniSONE 10 mg 10 mg PO .TAPER #21 tab.ds.pk 05/16/20 Unknown Rx (6-Day Pack, 21 Tabs)] Prednisone [predniSONE 10 mg 10 mg PO .TAPER #1 tab.ds.pk 06/14/20 Unknown Rx (6-Day Pack, 21 Tabs)] Albuterol Sulfate [Proair 1 - 2 puff IH Q4HR PRN #1 06/24/20 Unknown Rx Digihaler] aer.pw.bas Sulfamethoxazole/Trimethoprim 1 each PO BID #20 tablet 06/24/20 Unknown Rx [Bactrim DS TAB] ALBUTEROL NEB's [Proventil 0.083% 2.5 mg IH Q6HRT PRN #1 box 07/18/20 Unknown Rx NEBS] Albuterol Sulfate [Albuterol 0.63% 0.63 mg IH Q4HR PRN #2 ml 08/23/20 Unknown Rx NEBS] Albuterol Sulfate [Proair 90 mcg IH Q4HR PRN #2 aer.pow.ba 08/23/20 Unknown Rx Respiclick] Ipratropium (Nf) [Atrovent HFA 2 puff IH Q6HR PRN #1 inha 08/23/20 Unknown Rx 17MCG/PUFF] ALBUTEROL NEB's [Proventil 0.083% 2.5 mg IH TID PRN #1 box 09/16/20 Unknown Rx NEBS] Ipratropium [Atrovent] 0.5 mg IH Q8HRT #1 box 09/16/20 Unknown Rx Famotidine [Pepcid] 20 mg PO BID #20 tablet 10/08/20 Unknown Rx Ondansetron [Zofran Odt] 4 mg PO Q8HR PRN #15 tab.rapdis 10/08/20 Unknown Rx predniSONE [Deltasone] 40 mg PO QDAY 4 Days tab 10/08/20 Unknown Rx Ipratropium [Atrovent] 0.5 mg IH Q4HWA #1 box 10/24/20 Unknown Rx Prednisone [predniSONE 10 mg 10 mg PO .TAPER #1 tab.ds.pk 10/24/20 Unknown Rx (6-Day Pack, 21 Tabs)] levoFLOXacin [Levaquin TAB] 500 mg PO QDAY #7 tablet 10/24/20 Unknown Rx ALBUTEROL NEB's [Proventil 0.083% 3 ml IH Q6H PRN 30 Days #75 ml 01/11/21 Unknown Rx NEBS] Fluticasone/Salmeterol [Advair 1 puff IH BID #1 01/11/21 Unknown Rx Diskus 500-50 mcg] Ipratropium 0.06% [Atrovent] 2 spray NS Q8HR #1 bottle 01/11/21 Unknown Rx Ipratropium [Atrovent NEB] 0.5 mg IH Q4HR #2 ml 01/11/21 Unknown Rx levoFLOXacin [Levaquin TAB] 500 mg PO Q24HR #7 tablet 01/11/21 Unknown Rx predniSONE [Deltasone] 20 mg PO QDAY #20 tab 01/11/21 Unknown Rx predniSONE [Deltasone] 40 mg PO DAILY 5 Days #10 tablet 05/10/21 Unknown Rx Ipratropium (Nf) [Atrovent] 2 puff IH Q6HR PRN #1 inha 09/19/21 Unknown Rx Prednisone [predniSONE 10 mg 10 mg PO .TAPER #1 tab.ds.pk 09/19/21 Unknown Rx (6-Day Pack, 21 Tabs)] Albuterol Sulfate [Albuterol 0.63% 0.63 mg IH Q4HR PRN #2 ml 10/20/21 Unknown Rx NEBS] Albuterol Sulfate [Proair 90 mcg IH Q4HR PRN #2 aer.pow.ba 10/20/21 Unknown Rx Respiclick] Ipratropium (Nf) [Atrovent] 2 puff IH Q6HR PRN #1 inha 10/20/21 Unknown Rx Ipratropium [Atrovent NEB] 0.5 mg IH Q4HR #2 ml 10/20/21 Unknown Rx ALBUTEROL NEB's [Proventil 0.083% 2.5 mg IH TID PRN #1 box 11/17/21 Unknown Rx NEBS] predniSONE [Deltasone] 40 mg PO QDAY 5 Days tab 11/17/21 Unknown Rx Montelukast [Singulair] 10 mg PO QPM #14 tablet 11/29/21 Unknown Rx predniSONE [Deltasone] 50 mg PO QDAY #5 tab 11/29/21 Unknown Rx ALBUTEROL NEB's [Proventil 0.083% 2.5 mg IH TID PRN #30 neb 12/16/21 Unknown Rx NEBS] Albuterol Mdi (or & Nicu Only) 2 puff IH QID PRN #1 inhalation 12/16/21 Unknown Rx [ProAir HFA Inhaler] Montelukast [Singulair] 10 mg PO QPM #14 tablet 12/16/21 Unknown Rx Ipratropium [place] 15 ml NS BID PRN 10 Days #1 spray 02/15/22 Unknown Rx Levocetirizine Dihydrochloride 5 mg PO DAILY 30 Days #30 tab 02/15/22 Unknown Rx [Xyzal] predniSONE [Deltasone] 50 mg PO QDAY 5 Days #5 tab 02/15/22 Unknown Rx Allergies Allergy/AdvReac Type Severity Reaction Status Date / Time aspirin Allergy Anaphylaxis Verified 10/20/21 03:10 azithromycin [From Zithromax] Allergy Anaphylaxis Verified 10/20/21 03:10 doxycycline Allergy Rash Verified 10/20/21 03:10 ketorolac tromethamine Allergy Anaphylaxis Verified 10/20/21 03:10 [From Toradol] Latex, Natural Rubber Allergy Angioedema Verified 10/20/21 03:10 morphine Allergy Shortness Verified 10/20/21 03:10 of Breath NSAIDS (Non-Steroidal Allergy Anaphylaxis Verified 10/20/21 03:10 Anti-Inflamma Penicillins Allergy Hives Verified 10/20/21 03:10 ED Review of Systems ROS: Stated complaint: CHRONIC ASTHMA Other details as noted in HPI Constitutional: denies: chills, fever Eyes: denies: eye pain, eye discharge, vision change ENT: denies: ear pain, throat pain Respiratory: wheezing. denies: cough, shortness of breath Cardiovascular: denies: chest pain, palpitations Endocrine: no symptoms reported Gastrointestinal: denies: abdominal pain, nausea, diarrhea Genitourinary: denies: urgency, dysuria, discharge Musculoskeletal: denies: back pain, joint swelling, arthralgia Skin: denies: rash, lesions Neurological: denies: headache, weakness, paresthesias Psychiatric: denies: anxiety, depression Hematological/Lymphatic: denies: easy bleeding, easy bruising ED Past Medical Hx - Past Medical History Hx Hypertension: No Hx Heart Attack/AMI: No Hx Congestive Heart Failure: No Hx Diabetes: No Hx Deep Vein Thrombosis: No Hx Pulmonary Embolism: No Hx GERD: Yes Hx Liver Disease: No Hx Renal Disease: No Hx Sickle Cell Disease: No Hx Arthritis: No Hx Seizures: No Hx Kidney Stones: No Hx Asthma: Yes Hx COPD: No Hx Tuberculosis: No Hx Dementia: No Hx HIV: No Additional medical history: sinus problems. Prior Intubations x3. Obesity. hypothyroid - Surgical History Hx Coronary Stent: No Hx Open Heart Surgery: No Hx Pacemaker: No Hx Internal Defibrillator: No Hx Cholecystectomy: No Hx Appendectomy: No Hx Breast Surgery: No Additional Surgical History: x4, umbilical hernia repair, sinus surgeries, D&C. thyroid removal. tubligation - Social History Smoking Status: Never Smoker Substance Use Type: Alcohol - Medications Home Medications: Home Medications Medication Instructions Recorded Confirmed Last Taken Type AtorvaSTATin [Lipitor] 40 mg PO QHS 01/12/20 04/23/20 Unknown History Levothyroxine [Synthroid] 25 mcg PO QDAY 02/24/20 04/23/20 Unknown History Ascorbic Acid [Vitamin C] 04/23/20 Unknown History Cinnamon 04/23/20 Unknown History Diphenoxylate/Atropine [Lomotil] 1 tab PO Q6H PRN #14 tablet 04/23/20 Unknown Rx Ergocalciferol(Vitamin D2)(Nf) 04/23/20 Unknown History [Vitamin D (Nf)] Vitamin E (Dl,Tocopheryl Acet) 04/23/20 Unknown History [Vitamin E] metroNIDAZOLE [Flagyl TAB] 500 mg PO Q12H #14 tablet 04/23/20 Unknown Rx Cetirizine HCl/Pseudoephedrine 1 each PO BID PRN #20 tab.er.12h 05/03/20 Unknown Rx [Zyrtec-D Tablet] Benzonatate [Tessalon Perles] 100 mg PO Q8HR #30 capsule 05/16/20 Unknown Rx Prednisone [predniSONE 10 mg 10 mg PO .TAPER #21 tab.ds.pk 05/16/20 Unknown Rx (6-Day Pack, 21 Tabs)] Prednisone [predniSONE 10 mg 10 mg PO .TAPER #1 tab.ds.pk 06/14/20 Unknown Rx (6-Day Pack, 21 Tabs)] Albuterol Sulfate [Proair 1 - 2 puff IH Q4HR PRN #1 06/24/20 Unknown Rx Digihaler] aer.pw.bas Sulfamethoxazole/Trimethoprim 1 each PO BID #20 tablet 06/24/20 Unknown Rx [Bactrim DS TAB] ALBUTEROL NEB's [Proventil 0.083% 2.5 mg IH Q6HRT PRN #1 box 07/18/20 Unknown Rx NEBS] Albuterol Sulfate [Albuterol 0.63% 0.63 mg IH Q4HR PRN #2 ml 08/23/20 Unknown Rx NEBS] Albuterol Sulfate [Proair 90 mcg IH Q4HR PRN #2 aer.pow.ba 08/23/20 Unknown Rx Respiclick] Ipratropium (Nf) [Atrovent HFA 2 puff IH Q6HR PRN #1 inha 08/23/20 Unknown Rx 17MCG/PUFF] ALBUTEROL NEB's [Proventil 0.083% 2.5 mg IH TID PRN #1 box 09/16/20 Unknown Rx NEBS] Ipratropium [Atrovent] 0.5 mg IH Q8HRT #1 box 09/16/20 Unknown Rx Famotidine [Pepcid] 20 mg PO BID #20 tablet 10/08/20 Unknown Rx Ondansetron [Zofran Odt] 4 mg PO Q8HR PRN #15 tab.rapdis 10/08/20 Unknown Rx predniSONE [Deltasone] 40 mg PO QDAY 4 Days tab 10/08/20 Unknown Rx Ipratropium [Atrovent] 0.5 mg IH Q4HWA #1 box 10/24/20 Unknown Rx Prednisone [predniSONE 10 mg 10 mg PO .TAPER #1 tab.ds.pk 10/24/20 Unknown Rx (6-Day Pack, 21 Tabs)] levoFLOXacin [Levaquin TAB] 500 mg PO QDAY #7 tablet 10/24/20 Unknown Rx ALBUTEROL NEB's [Proventil 0.083% 3 ml IH Q6H PRN 30 Days #75 ml 01/11/21 Unknown Rx NEBS] Fluticasone/Salmeterol [Advair 1 puff IH BID #1 01/11/21 Unknown Rx Diskus 500-50 mcg] Ipratropium 0.06% [Atrovent] 2 spray NS Q8HR #1 bottle 01/11/21 Unknown Rx Ipratropium [Atrovent NEB] 0.5 mg IH Q4HR #2 ml 01/11/21 Unknown Rx levoFLOXacin [Levaquin TAB] 500 mg PO Q24HR #7 tablet 01/11/21 Unknown Rx predniSONE [Deltasone] 20 mg PO QDAY #20 tab 01/11/21 Unknown Rx predniSONE [Deltasone] 40 mg PO DAILY 5 Days #10 tablet 05/10/21 Unknown Rx Ipratropium (Nf) [Atrovent] 2 puff IH Q6HR PRN #1 inha 09/19/21 Unknown Rx Prednisone [predniSONE 10 mg 10 mg PO .TAPER #1 tab.ds.pk 09/19/21 Unknown Rx (6-Day Pack, 21 Tabs)] Albuterol Sulfate [Albuterol 0.63% 0.63 mg IH Q4HR PRN #2 ml 10/20/21 Unknown Rx NEBS] Albuterol Sulfate [Proair 90 mcg IH Q4HR PRN #2 aer.pow.ba 10/20/21 Unknown Rx Respiclick] Ipratropium (Nf) [Atrovent] 2 puff IH Q6HR PRN #1 inha 10/20/21 Unknown Rx Ipratropium [Atrovent NEB] 0.5 mg IH Q4HR #2 ml 10/20/21 Unknown Rx ALBUTEROL NEB's [Proventil 0.083% 2.5 mg IH TID PRN #1 box 11/17/21 Unknown Rx NEBS] predniSONE [Deltasone] 40 mg PO QDAY 5 Days tab 11/17/21 Unknown Rx Montelukast [Singulair] 10 mg PO QPM #14 tablet 11/29/21 Unknown Rx predniSONE [Deltasone] 50 mg PO QDAY #5 tab 11/29/21 Unknown Rx ALBUTEROL NEB's [Proventil 0.083% 2.5 mg IH TID PRN #30 neb 12/16/21 Unknown Rx NEBS] Albuterol Mdi (or & Nicu Only) 2 puff IH QID PRN #1 inhalation 12/16/21 Unknown Rx [ProAir HFA Inhaler] Montelukast [Singulair] 10 mg PO QPM #14 tablet 12/16/21 Unknown Rx Ipratropium [place] 15 ml NS BID PRN 10 Days #1 spray 02/15/22 Unknown Rx Levocetirizine Dihydrochloride 5 mg PO DAILY 30 Days #30 tab 02/15/22 Unknown Rx [Xyzal] predniSONE [Deltasone] 50 mg PO QDAY 5 Days #5 tab 02/15/22 Unknown Rx ED Physical Exam - General Limitations: No Limitations General appearance: alert, in no apparent distress - Head Head exam: Present: atraumatic, normocephalic - Eye Eye exam: Present: normal appearance - ENT ENT exam: Present: mucous membranes moist - Neck Neck exam: Present: normal inspection - Respiratory Respiratory exam: Present: normal lung sounds bilaterally, wheezes. Absent: respiratory distress - Cardiovascular Cardiovascular Exam: Present: regular rate, normal rhythm. Absent: systolic murmur, diastolic murmur, rubs, gallop - GI/Abdominal GI/Abdominal exam: Present: soft, normal bowel sounds - Extremities Exam Extremities exam: Present: normal inspection - Back Exam Back exam: Present: normal inspection - Neurological Exam Neurological exam: Present: alert, oriented X3 - Psychiatric Psychiatric exam: Present: normal affect, normal mood - Skin Skin exam: Present: warm, dry, intact, normal color. Absent: rash ED Course Vital Signs 02/15/22 02/15/22 11:54 14:14 Temperature 98.0 F Pulse Rate 76 76 Respiratory 21 Rate Blood Pressure 100/72 [Left] O2 Sat by Pulse 97 98 Oximetry ED Medical Decision Making - Radiology Data [facility] [address] [place] [address] XRay Report Signed Patient: DAHIANA GERMAN MR#: [id number] : 1970 Acct:[id number] Age/Sex: 51 / F ADM Date: 02/15/22 Loc: ED Attending Dr: Ordering Physician: SKYLA FRANKS Date of Service: 02/15/22 Procedure(s): XR chest routine 2V Accession Number(s): [id number] cc: SKYLA FRANKS Fluoro Time In Minutes: CHEST 2 VIEWS INDICATION / CLINICAL INFORMATION: shortness of breath. COMPARISON: 12/16/2021 FINDINGS: SUPPORT DEVICES: None. HEART / MEDIASTINUM: No significant abnormality. LUNGS / PLEURA: No significant pulmonary or pleural abnormality. No pneumothorax. ADDITIONAL FINDINGS: No significant additional findings. IMPRESSION: 1. No acute findings. Signer Name: Rivas Gilmore MD Signed: 02/15/2022 4:27 PM Workstation Name: [id number] Transcribed By: ASIA Dictated By: Rivas Gilmore MD Electronically Authenticated By: Rivas Gilmore MD Signed Date/Time: 02/15/221626 DD/ 24 TD/TT: - Medical Decision Making 51-year-old female presents to the ED complaining wheezing x3 days. She states that she has a history of asthma. She states she feels that she is having an asthma attack. Patient has not used her asthma inhaler x3 days. She denies any chest pain,abdominal pain ,fever or chills. Patient is alert and oriented x3. No acute distress noted. No ill appearance noted. Physical examination patient has wheezing noted. Albuterol 10 mg/Atrovent 1 mg neb given , Solu- Medrol 125mg IV , chest x-ray showed no abnormality. Patient walking O2 sat is 98%. Rechecked the patient is resting quietly quietly and comfortable and feeling better. I discussed the results of diagnostic study, my clinical impression and the plan for further treatment with the patient. Patient agrees with plan and discharge at this present time. All question addressed. I have given the patient instruction regarding a diagnosis ,expectation ,follow- up and return precaution. I explained to the patient that emergent condition may arise and to return to the ED for new worsen and any new persisting condition. I have explained the importance of following up with the primary care physician or referral physician listed below has instructed. The patient verbalized understanding of discharge instruction. Critical care attestation.: If time is entered above; I have spent that time in minutes in the direct care of this critically ill patient, excluding procedure time. ED Disposition Clinical Impression: Asthma exacerbation Qualifiers: Asthma severity: mild Asthma persistence: unspecified Qualified Code(s): J45.901 - Unspecified asthma with (acute) exacerbation Disposition: 01 HOME / SELF CARE / HOMELESS Is pt being admited?: No Condition: Stable Instructions: Asthma, Adult, [id number], Asthma Attack Additional Instructions: Take medication as prescribed Return to the ED for any worsening symptom Prescriptions: predniSONE [Deltasone] 50 mg PO QDAY 5 Days #5 tab Ipratropium [place] 15 ml NS BID PRN 10 Days #1 spray PRN Reason: shortness of breath Levocetirizine Dihydrochloride [Xyzal] 5 mg PO DAILY 30 Days #30 tab Referrals: PRIMARY CARE, [Primary Care Provider] - 3-5 Days [facility] [Provider Group] - 3-5 Days Forms: Work/School Release Form(ED) Time of Disposition: 19:07
--- NOTE | 2022-02-20 18:20 | Electrocardiograph Report ---
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
== END 2022-02-16 22:15 | disposition home or self-care (01) ==
LOC: ED 10:56
DX: J45.901 Unspecified asthma with (acute) exacerbation (principal); K21.9 Gastro-esophageal reflux disease without esophagitis; E66.9 Obesity, unspecified; E03.9 Hypothyroidism, unspecified; Z88.1 Allergy status to other antibiotic agents; Z88.5 Allergy status to narcotic agent; Z91.040 Latex allergy status
CPT/HCPCS: 71046; 93005; 94640; 96372; 99283; J2930

== ENCOUNTER 2022-02-27 05:20 | Emergency (ER) | payer MEDICARE ==
[2022-02-27] MEDS: ALBUTEROL 2.5 MG/3 ML NEBU IH ONE ×2 (06:42→10:30)
[2022-02-27] MEDS: IPRATROPIUM 0.02% NEBU 2.5 ML IH ONE (06:43)
[2022-02-27] MEDS ORDERED: ALBUTEROL 2.5 MG/3 ML NEBU IH ONE (10:21)
[2022-02-27] MEDS: methylPREDNISolone Sod Succinate 125 MG/2 ML INJ IM ONE (10:47)
--- NOTE | 2022-02-27 12:58 | Emergency Department Report ---
ED Asthma HPI - General Chief Complaint: Dyspnea/Respdistress Stated Complaint: ASTHMA Time Seen by Provider: 02/27/22 09:07 Source: patient Mode of arrival: Ambulatory Limitations: No Limitations - History of Present Illness Initial Comments: Patient is a 51-year-old female with history of asthma presenting to ED with complaint of worsening shortness of breath upon awakening. States she is homeless and is living in her car. States she attempted a breathing treatment which did not help. States when this happens she comes to the ER and requests hour-long nebulization treatment which usually helps. - Related Data Home Medications Medication Instructions Recorded Confirmed Last Taken AtorvaSTATin [Lipitor] 40 mg PO QHS 01/12/20 04/23/20 Unknown Levothyroxine [Synthroid] 25 mcg PO QDAY 02/24/20 04/23/20 Unknown Ascorbic Acid [Vitamin C] 04/23/20 Unknown Cinnamon 04/23/20 Unknown Ergocalciferol(Vitamin D2)(Nf) 04/23/20 Unknown [Vitamin D (Nf)] Vitamin E (Dl,Tocopheryl Acet) 04/23/20 Unknown [Vitamin E] Previous Rx's Medication Instructions Recorded Last Taken Type Diphenoxylate/Atropine [Lomotil] 1 tab PO Q6H PRN #14 tablet 04/23/20 Unknown Rx metroNIDAZOLE [Flagyl TAB] 500 mg PO Q12H #14 tablet 04/23/20 Unknown Rx Cetirizine HCl/Pseudoephedrine 1 each PO BID PRN #20 tab.er.12h 05/03/20 Unknown Rx [Zyrtec-D Tablet] Benzonatate [Tessalon Perles] 100 mg PO Q8HR #30 capsule 05/16/20 Unknown Rx Prednisone [predniSONE 10 mg 10 mg PO .TAPER #21 tab.ds.pk 05/16/20 Unknown Rx (6-Day Pack, 21 Tabs)] Prednisone [predniSONE 10 mg 10 mg PO .TAPER #1 tab.ds.pk 06/14/20 Unknown Rx (6-Day Pack, 21 Tabs)] Albuterol Sulfate [Proair 1 - 2 puff IH Q4HR PRN #1 06/24/20 Unknown Rx Digihaler] aer.pw.bas Sulfamethoxazole/Trimethoprim 1 each PO BID #20 tablet 06/24/20 Unknown Rx [Bactrim DS TAB] ALBUTEROL NEB's [Proventil 0.083% 2.5 mg IH Q6HRT PRN #1 box 07/18/20 Unknown Rx NEBS] Albuterol Sulfate [Albuterol 0.63% 0.63 mg IH Q4HR PRN #2 ml 08/23/20 Unknown Rx NEBS] Albuterol Sulfate [Proair 90 mcg IH Q4HR PRN #2 aer.pow.ba 08/23/20 Unknown Rx Respiclick] Ipratropium (Nf) [Atrovent HFA 2 puff IH Q6HR PRN #1 inha 08/23/20 Unknown Rx 17MCG/PUFF] ALBUTEROL NEB's [Proventil 0.083% 2.5 mg IH TID PRN #1 box 09/16/20 Unknown Rx NEBS] Ipratropium [Atrovent] 0.5 mg IH Q8HRT #1 box 09/16/20 Unknown Rx Famotidine [Pepcid] 20 mg PO BID #20 tablet 10/08/20 Unknown Rx Ondansetron [Zofran Odt] 4 mg PO Q8HR PRN #15 tab.rapdis 10/08/20 Unknown Rx predniSONE [Deltasone] 40 mg PO QDAY 4 Days tab 10/08/20 Unknown Rx Ipratropium [Atrovent] 0.5 mg IH Q4HWA #1 box 10/24/20 Unknown Rx Prednisone [predniSONE 10 mg 10 mg PO .TAPER #1 tab.ds.pk 10/24/20 Unknown Rx (6-Day Pack, 21 Tabs)] levoFLOXacin [Levaquin TAB] 500 mg PO QDAY #7 tablet 10/24/20 Unknown Rx ALBUTEROL NEB's [Proventil 0.083% 3 ml IH Q6H PRN 30 Days #75 ml 01/11/21 Unknown Rx NEBS] Fluticasone/Salmeterol [Advair 1 puff IH BID #1 01/11/21 Unknown Rx Diskus 500-50 mcg] Ipratropium 0.06% [Atrovent] 2 spray NS Q8HR #1 bottle 01/11/21 Unknown Rx Ipratropium [Atrovent NEB] 0.5 mg IH Q4HR #2 ml 01/11/21 Unknown Rx levoFLOXacin [Levaquin TAB] 500 mg PO Q24HR #7 tablet 01/11/21 Unknown Rx predniSONE [Deltasone] 20 mg PO QDAY #20 tab 01/11/21 Unknown Rx predniSONE [Deltasone] 40 mg PO DAILY 5 Days #10 tablet 05/10/21 Unknown Rx Ipratropium (Nf) [Atrovent] 2 puff IH Q6HR PRN #1 inha 09/19/21 Unknown Rx Prednisone [predniSONE 10 mg 10 mg PO .TAPER #1 tab.ds.pk 09/19/21 Unknown Rx (6-Day Pack, 21 Tabs)] Albuterol Sulfate [Albuterol 0.63% 0.63 mg IH Q4HR PRN #2 ml 10/20/21 Unknown Rx NEBS] Albuterol Sulfate [Proair 90 mcg IH Q4HR PRN #2 aer.pow.ba 10/20/21 Unknown Rx Respiclick] Ipratropium (Nf) [Atrovent] 2 puff IH Q6HR PRN #1 inha 10/20/21 Unknown Rx Ipratropium [Atrovent NEB] 0.5 mg IH Q4HR #2 ml 10/20/21 Unknown Rx ALBUTEROL NEB's [Proventil 0.083% 2.5 mg IH TID PRN #1 box 11/17/21 Unknown Rx NEBS] predniSONE [Deltasone] 40 mg PO QDAY 5 Days tab 11/17/21 Unknown Rx Montelukast [Singulair] 10 mg PO QPM #14 tablet 11/29/21 Unknown Rx predniSONE [Deltasone] 50 mg PO QDAY #5 tab 11/29/21 Unknown Rx ALBUTEROL NEB's [Proventil 0.083% 2.5 mg IH TID PRN #30 neb 12/16/21 Unknown Rx NEBS] Albuterol Mdi (or & Nicu Only) 2 puff IH QID PRN #1 inhalation 12/16/21 Unknown Rx [ProAir HFA Inhaler] Montelukast [Singulair] 10 mg PO QPM #14 tablet 12/16/21 Unknown Rx Ipratropium [place] 15 ml NS BID PRN 10 Days #1 spray 02/15/22 Unknown Rx Levocetirizine Dihydrochloride 5 mg PO DAILY 30 Days #30 tab 02/15/22 Unknown Rx [Xyzal] predniSONE [Deltasone] 50 mg PO QDAY 5 Days #5 tab 02/15/22 Unknown Rx Allergies Allergy/AdvReac Type Severity Reaction Status Date / Time aspirin Allergy Anaphylaxis Verified 10/20/21 03:10 azithromycin [From Zithromax] Allergy Anaphylaxis Verified 10/20/21 03:10 doxycycline Allergy Rash Verified 10/20/21 03:10 ketorolac tromethamine Allergy Anaphylaxis Verified 10/20/21 03:10 [From Toradol] Latex, Natural Rubber Allergy Angioedema Verified 10/20/21 03:10 morphine Allergy Shortness Verified 10/20/21 03:10 of Breath NSAIDS (Non-Steroidal Allergy Anaphylaxis Verified 10/20/21 03:10 Anti-Inflamma Penicillins Allergy Hives Verified 10/20/21 03:10 ED Review of Systems ROS: Stated complaint: ASTHMA Other details as noted in HPI Comment: All other systems reviewed and negative Constitutional: denies: chills, fever Respiratory: shortness of breath, wheezing Cardiovascular: denies: chest pain, palpitations Gastrointestinal: denies: abdominal pain, nausea, diarrhea Musculoskeletal: denies: back pain, joint swelling, arthralgia Skin: denies: rash, lesions Neurological: denies: headache, weakness, paresthesias Psychiatric: denies: anxiety, depression ED Past Medical Hx - Past Medical History Hx Hypertension: No Hx Heart Attack/AMI: No Hx Congestive Heart Failure: No Hx Diabetes: No Hx Deep Vein Thrombosis: No Hx Pulmonary Embolism: No Hx GERD: Yes Hx Liver Disease: No Hx Renal Disease: No Hx Sickle Cell Disease: No Hx Arthritis: No Hx Seizures: No Hx Kidney Stones: No Hx Asthma: Yes Hx COPD: No Hx Tuberculosis: No Hx Dementia: No Hx HIV: No Additional medical history: sinus problems. Prior Intubations x3. Obesity. hypothyroid - Surgical History Hx Coronary Stent: No Hx Open Heart Surgery: No Hx Pacemaker: No Hx Internal Defibrillator: No Hx Cholecystectomy: No Hx Appendectomy: No Hx Breast Surgery: No Additional Surgical History: x4, umbilical hernia repair, sinus s urgeries, D&C. thyroid removal. tubligation - Social History Smoking Status: Never Smoker Substance Use Type: Alcohol - Medications Home Medications: Home Medications Medication Instructions Recorded Confirmed Last Taken Type AtorvaSTATin [Lipitor] 40 mg PO QHS 01/12/20 04/23/20 Unknown History Levothyroxine [Synthroid] 25 mcg PO QDAY 02/24/20 04/23/20 Unknown History Ascorbic Acid [Vitamin C] 04/23/20 Unknown History Cinnamon 04/23/20 Unknown History Diphenoxylate/Atropine [Lomotil] 1 tab PO Q6H PRN #14 tablet 04/23/20 Unknown Rx Ergocalciferol(Vitamin D2)(Nf) 04/23/20 Unknown History [Vitamin D (Nf)] Vitamin E (Dl,Tocopheryl Acet) 04/23/20 Unknown History [Vitamin E] metroNIDAZOLE [Flagyl TAB] 500 mg PO Q12H #14 tablet 04/23/20 Unknown Rx Cetirizine HCl/Pseudoephedrine 1 each PO BID PRN #20 tab.er.12h 05/03/20 Unknown Rx [Zyrtec-D Tablet] Benzonatate [Tessalon Perles] 100 mg PO Q8HR #30 capsule 05/16/20 Unknown Rx Prednisone [predniSONE 10 mg 10 mg PO .TAPER #21 tab.ds.pk 05/16/20 Unknown Rx (6-Day Pack, 21 Tabs)] Prednisone [predniSONE 10 mg 10 mg PO .TAPER #1 tab.ds.pk 06/14/20 Unknown Rx (6-Day Pack, 21 Tabs)] Albuterol Sulfate [Proair 1 - 2 puff IH Q4HR PRN #1 06/24/20 Unknown Rx Digihaler] aer.pw.bas Sulfamethoxazole/Trimethoprim 1 each PO BID #20 tablet 06/24/20 Unknown Rx [Bactrim DS TAB] ALBUTEROL NEB's [Proventil 0.083% 2.5 mg IH Q6HRT PRN #1 box 07/18/20 Unknown Rx NEBS] Albuterol Sulfate [Albuterol 0.63% 0.63 mg IH Q4HR PRN #2 ml 08/23/20 Unknown Rx NEBS] Albuterol Sulfate [Proair 90 mcg IH Q4HR PRN #2 aer.pow.ba 08/23/20 Unknown Rx Respiclick] Ipratropium (Nf) [Atrovent HFA 2 puff IH Q6HR PRN #1 inha 08/23/20 Unknown Rx 17MCG/PUFF] ALBUTEROL NEB's [Proventil 0.083% 2.5 mg IH TID PRN #1 box 09/16/20 Unknown Rx NEBS] Ipratropium [Atrovent] 0.5 mg IH Q8HRT #1 box 09/16/20 Unknown Rx Famotidine [Pepcid] 20 mg PO BID #20 tablet 10/08/20 Unknown Rx Ondansetron [Zofran Odt] 4 mg PO Q8HR PRN #15 tab.rapdis 10/08/20 Unknown Rx predniSONE [Deltasone] 40 mg PO QDAY 4 Days tab 10/08/20 Unknown Rx Ipratropium [Atrovent] 0.5 mg IH Q4HWA #1 box 10/24/20 Unknown Rx Prednisone [predniSONE 10 mg 10 mg PO .TAPER #1 tab.ds.pk 10/24/20 Unknown Rx (6-Day Pack, 21 Tabs)] levoFLOXacin [Levaquin TAB] 500 mg PO QDAY #7 tablet 10/24/20 Unknown Rx ALBUTEROL NEB's [Proventil 0.083% 3 ml IH Q6H PRN 30 Days #75 ml 01/11/21 Unknown Rx NEBS] Fluticasone/Salmeterol [Advair 1 puff IH BID #1 01/11/21 Unknown Rx Diskus 500-50 mcg] Ipratropium 0.06% [Atrovent] 2 spray NS Q8HR #1 bottle 01/11/21 Unknown Rx Ipratropium [Atrovent NEB] 0.5 mg IH Q4HR #2 ml 01/11/21 Unknown Rx levoFLOXacin [Levaquin TAB] 500 mg PO Q24HR #7 tablet 01/11/21 Unknown Rx predniSONE [Deltasone] 20 mg PO QDAY #20 tab 01/11/21 Unknown Rx predniSONE [Deltasone] 40 mg PO DAILY 5 Days #10 tablet 05/10/21 Unknown Rx Ipratropium (Nf) [Atrovent] 2 puff IH Q6HR PRN #1 inha 09/19/21 Unknown Rx Prednisone [predniSONE 10 mg 10 mg PO .TAPER #1 tab.ds.pk 09/19/21 Unknown Rx (6-Day Pack, 21 Tabs)] Albuterol Sulfate [Albuterol 0.63% 0.63 mg IH Q4HR PRN #2 ml 10/20/21 Unknown Rx NEBS] Albuterol Sulfate [Proair 90 mcg IH Q4HR PRN #2 aer.pow.ba 10/20/21 Unknown Rx Respiclick] Ipratropium (Nf) [Atrovent] 2 puff IH Q6HR PRN #1 inha 10/20/21 Unknown Rx Ipratropium [Atrovent NEB] 0.5 mg IH Q4HR #2 ml 10/20/21 Unknown Rx ALBUTEROL NEB's [Proventil 0.083% 2.5 mg IH TID PRN #1 box 11/17/21 Unknown Rx NEBS] predniSONE [Deltasone] 40 mg PO QDAY 5 Days tab 11/17/21 Unknown Rx Montelukast [Singulair] 10 mg PO QPM #14 tablet 11/29/21 Unknown Rx predniSONE [Deltasone] 50 mg PO QDAY #5 tab 11/29/21 Unknown Rx ALBUTEROL NEB's [Proventil 0.083% 2.5 mg IH TID PRN #30 neb 12/16/21 Unknown Rx NEBS] Albuterol Mdi (or & Nicu Only) 2 puff IH QID PRN #1 inhalation 12/16/21 Unknown Rx [ProAir HFA Inhaler] Montelukast [Singulair] 10 mg PO QPM #14 tablet 12/16/21 Unknown Rx Ipratropium [place] 15 ml NS BID PRN 10 Days #1 spray 02/15/22 Unknown Rx Levocetirizine Dihydrochloride 5 mg PO DAILY 30 Days #30 tab 02/15/22 Unknown Rx [Xyzal] predniSONE [Deltasone] 50 mg PO QDAY 5 Days #5 tab 02/15/22 Unknown Rx ED Physical Exam - General Limitations: No Limitations General appearance: alert, in no apparent distress - Head Head exam: Present: atraumatic, normocephalic - Respiratory Respiratory exam: Present: wheezes. Absent: accessory muscle use - Cardiovascular Cardiovascular Exam: Present: regular rate, normal rhythm, normal heart sounds - GI/Abdominal GI/Abdominal exam: Present: soft. Absent: distended, tenderness - Rectal Rectal exam: Present: deferred - Neurological Exam Neurological exam: Present: alert, oriented X3 - Psychiatric Psychiatric exam: Present: normal affect, normal mood - Skin Skin exam: Present: warm, dry, intact, normal color ED Course Vital Signs 02/27/22 02/27/22 02/27/22 05:26 06:46 08:21 Temperature 98.7 F Pulse Rate 98 H Pulse Rate [ 87 Anterior Bilateral] Respiratory 24 18 Rate Respiratory 17 Rate [Anterior Bilateral] Blood Pressure 151/74 Blood Pressure [Right] O2 Sat by Pulse 97 Oximetry 02/27/22 02/27/22 02/27/22 08:30 08:46 08:52 Temperature Pulse Rate 96 H 92 H 89 Pulse Rate [ Anterior Bilateral] Respiratory 14 15 18 Rate Respiratory Rate [Anterior Bilateral] Blood Pressure 89/52 89/52 Blood Pressure 109/56 [Right] O2 Sat by Pulse 99 97 97 Oximetry 02/27/22 02/27/22 02/27/22 09:00 09:16 09:30 Temperature Pulse Rate 89 87 91 H Pulse Rate [ Anterior Bilateral] Respiratory 15 23 18 Rate Respiratory Rate [Anterior Bilateral] Blood Pressure 109/69 109/69 109/69 Blood Pressure [Right] O2 Sat by Pulse 96 97 98 Oximetry 02/27/22 02/27/22 02/27/22 09:46 10:00 10:16 Temperature Pulse Rate 101 H 85 83 Pulse Rate [ Anterior Bilateral] Respiratory 18 13 17 Rate Respiratory Rate [Anterior Bilateral] Blood Pressure 109/69 106/63 Blood Pressure [Right] O2 Sat by Pulse 97 95 95 Oximetry 02/27/22 02/27/22 10:30 10:46 Temperature Pulse Rate 90 91 H Pulse Rate [ 91 H Anterior Bilateral] Respiratory 11 L 16 Rate Respiratory 18 Rate [Anterior Bilateral] Blood Pressure 106/63 106/63 Blood Pressure [Right] O2 Sat by Pulse 96 95 Oximetry ED Medical Decision Making - Medical Decision Making Patient given 10 mg albuterol nebulization along with 125 mg of Solu-Medrol. Reports significant improvement on reassessment. She is stable for discharge with return precautions. Critical care attestation.: If time is entered above; I have spent that time in minutes in the direct care of this critically ill patient, excluding procedure time. ED Disposition Clinical Impression: Asthma exacerbation Disposition: 01 HOME / SELF CARE / HOMELESS Is pt being admited?: No Condition: Stable Instructions: Asthma, Adult Referrals: PRIMARY CARE, [Primary Care Provider] - 3-5 Days Time of Disposition: 12:58
[2022-02-27 13:55] VITALS: BP 120/65
== END 2022-02-27 13:30 | disposition home or self-care (01) ==
LOC: ED 05:20
DX: J45.901 Unspecified asthma with (acute) exacerbation (principal); F10.20 Alcohol dependence, uncomplicated; Z88.0 Allergy status to penicillin; Z88.6 Allergy status to analgesic agent; Z91.040 Latex allergy status; Z88.5 Allergy status to narcotic agent
CPT/HCPCS: 94640; 94644; 96372; 99283; J2930

== ENCOUNTER 2022-03-12 03:40 | Emergency (ER) | payer MEDICARE ==
[2022-03-12] MEDS ORDERED: ALBUTEROL 2.5 MG/3 ML NEBU IH ONE (03:49)
[2022-03-12] MEDS ORDERED: IPRATROPIUM 0.02% NEBU 2.5 ML IH ONE (03:49)
[2022-03-12] MEDS ORDERED: methylPREDNISolone Sod Succinate 125 MG/2 ML INJ IM ONE (03:49)
--- NOTE | 2022-03-12 05:36 | XRay Report ---
CHEST 1 VIEW INDICATION / CLINICAL INFORMATION: cough, dyspnea, asthma. COMPARISON: 02/15/2022 FINDINGS: SUPPORT DEVICES: None. HEART / MEDIASTINUM: No significant abnormality. LUNGS / PLEURA: No significant pulmonary or pleural abnormality. No pneumothorax. ADDITIONAL FINDINGS: No significant additional findings. IMPRESSION: 1. No acute findings. Signer Name: Wilian Tavarez MD Signed: 03/12/2022 5:32 AM Workstation Name: [id number]
--- NOTE | 2022-03-12 05:44 | Emergency Department Report ---
ED Shortness of Breath HPI - General Stated Complaint: ASTHMA - History of Present Illness Initial Comments: Patient is a 51-year-old -[place] female with a history of morbid obesity, asthma, GERD and hypothyroidism who presents to the ED with complaint of acute exacerbation of her chronic asthma characterized by shortness of breath, wheezing, dry cough, chest tightness and frontal sinus pressure after inhaling injury and fumes from a defective leaking engine for the last 3 days. Patient states that she has been using her albuterol inhaler and nebulizer at home with no relief, and ran out of her medications 2 days ago. Patient states that her symptoms got worse in the last 24 hours. Patient denies dizziness, syncope, sore throat, fever, chills, nausea and vomiting, chest pain, abdominal pain, diarrhea, change in vision, headache or palpitation and diarrhea. MD Complaint: shortness of breath, cough, "asthma attack" -: days(s) (5) Severity: severe Pain Scale: 7 Quality: aching, other Consistency: constant (Chest tightness) Improves With: nothing Worsens With: lying flat, movement, coughing Known History Of: asthma Context: recent URI, allergen exposure, smoke/fume exposure Associated Symptoms: cough Treatments Prior to Arrival: bronchodilator - Related Data Home Oxygen Therapy: No Home Medications Medication Instructions Recorded Confirmed Last Taken AtorvaSTATin [Lipitor] 40 mg PO QHS 01/12/20 04/23/20 Unknown Levothyroxine [Synthroid] 25 mcg PO QDAY 02/24/20 04/23/20 Unknown Ascorbic Acid [Vitamin C] 04/23/20 Unknown Cinnamon 04/23/20 Unknown Ergocalciferol(Vitamin D2)(Nf) 04/23/20 Unknown [Vitamin D (Nf)] Vitamin E (Dl,Tocopheryl Acet) 04/23/20 Unknown [Vitamin E] Previous Rx's Medication Instructions Recorded Last Taken Type Diphenoxylate/Atropine [Lomotil] 1 tab PO Q6H PRN #14 tablet 04/23/20 Unknown Rx metroNIDAZOLE [Flagyl TAB] 500 mg PO Q12H #14 tablet 04/23/20 Unknown Rx Prednisone [predniSONE 10 mg 10 mg PO .TAPER #21 tab.ds.pk 05/16/20 Unknown Rx (6-Day Pack, 21 Tabs)] Prednisone [predniSONE 10 mg 10 mg PO .TAPER #1 tab.ds.pk 06/14/20 Unknown Rx (6-Day Pack, 21 Tabs)] Albuterol Sulfate [Proair 1 - 2 puff IH Q4HR PRN #1 06/24/20 Unknown Rx Digihaler] aer.pw.bas Sulfamethoxazole/Trimethoprim 1 each PO BID #20 tablet 06/24/20 Unknown Rx [Bactrim DS TAB] Albuterol Sulfate [Albuterol 0.63% 0.63 mg IH Q4HR PRN #2 ml 08/23/20 Unknown Rx NEBS] Albuterol Sulfate [Proair 90 mcg IH Q4HR PRN #2 aer.pow.ba 08/23/20 Unknown Rx Respiclick] Ipratropium (Nf) [Atrovent HFA 2 puff IH Q6HR PRN #1 inha 08/23/20 Unknown Rx 17MCG/PUFF] ALBUTEROL NEB's [Proventil 0.083% 2.5 mg IH TID PRN #1 box 09/16/20 Unknown Rx NEBS] Famotidine [Pepcid] 20 mg PO BID #20 tablet 10/08/20 Unknown Rx Ondansetron [Zofran Odt] 4 mg PO Q8HR PRN #15 tab.rapdis 10/08/20 Unknown Rx predniSONE [Deltasone] 40 mg PO QDAY 4 Days tab 10/08/20 Unknown Rx Ipratropium [Atrovent] 0.5 mg IH Q4HWA #1 box 10/24/20 Unknown Rx Prednisone [predniSONE 10 mg 10 mg PO .TAPER #1 tab.ds.pk 10/24/20 Unknown Rx (6-Day Pack, 21 Tabs)] levoFLOXacin [Levaquin TAB] 500 mg PO QDAY #7 tablet 10/24/20 Unknown Rx ALBUTEROL NEB's [Proventil 0.083% 3 ml IH Q6H PRN 30 Days #75 ml 01/11/21 Unknown Rx NEBS] Fluticasone/Salmeterol [Advair 1 puff IH BID #1 01/11/21 Unknown Rx Diskus 500-50 mcg] Ipratropium 0.06% [Atrovent] 2 spray NS Q8HR #1 bottle 01/11/21 Unknown Rx Ipratropium [Atrovent NEB] 0.5 mg IH Q4HR #2 ml 01/11/21 Unknown Rx levoFLOXacin [Levaquin TAB] 500 mg PO Q24HR #7 tablet 01/11/21 Unknown Rx predniSONE [Deltasone] 20 mg PO QDAY #20 tab 01/11/21 Unknown Rx predniSONE [Deltasone] 40 mg PO DAILY 5 Days #10 tablet 05/10/21 Unknown Rx Ipratropium (Nf) [Atrovent] 2 puff IH Q6HR PRN #1 inha 09/19/21 Unknown Rx Prednisone [predniSONE 10 mg 10 mg PO .TAPER #1 tab.ds.pk 09/19/21 Unknown Rx (6-Day Pack, 21 Tabs)] Albuterol Sulfate [Albuterol 0.63% 0.63 mg IH Q4HR PRN #2 ml 10/20/21 Unknown Rx NEBS] Albuterol Sulfate [Proair 90 mcg IH Q4HR PRN #2 aer.pow.ba 10/20/21 Unknown Rx Respiclick] Ipratropium (Nf) [Atrovent] 2 puff IH Q6HR PRN #1 inha 10/20/21 Unknown Rx Ipratropium [Atrovent NEB] 0.5 mg IH Q4HR #2 ml 10/20/21 Unknown Rx ALBUTEROL NEB's [Proventil 0.083% 2.5 mg IH TID PRN #1 box 11/17/21 Unknown Rx NEBS] predniSONE [Deltasone] 40 mg PO QDAY 5 Days tab 11/17/21 Unknown Rx predniSONE [Deltasone] 50 mg PO QDAY #5 tab 11/29/21 Unknown Rx ALBUTEROL NEB's [Proventil 0.083% 2.5 mg IH TID PRN #30 neb 12/16/21 Unknown Rx NEBS] Montelukast [Singulair] 10 mg PO QPM #14 tablet 12/16/21 Unknown Rx Ipratropium [place] 15 ml NS BID PRN 10 Days #1 spray 02/15/22 Unknown Rx Levocetirizine Dihydrochloride 5 mg PO DAILY 30 Days #30 tab 02/15/22 Unknown Rx [Xyzal] predniSONE [Deltasone] 50 mg PO QDAY 5 Days #5 tab 02/15/22 Unknown Rx Ipratropium (Nf) [Atrovent HFA 2 puff IH Q6HR PRN #1 inha 02/27/22 Unknown Rx 17MCG/PUFF] predniSONE [Deltasone] 40 mg PO DAILY 5 Days #10 02/27/22 Unknown Rx ALBUTEROL NEB's [Proventil 0.083% 3 ml IH Q6H PRN #75 ml 03/12/22 Unknown Rx NEBS] Albuterol Mdi (or & Nicu Only) 2 puff IH QID PRN #1 inhalation 03/12/22 Unknown Rx [ProAir HFA Inhaler] Benzonatate [Tessalon Perles] 100 mg PO Q8HR #30 capsule 03/12/22 Unknown Rx Cetirizine HCl/Pseudoephedrine 1 each PO BID PRN #60 tab 03/12/22 Unknown Rx [Zyrtec-D Tablet] Ipratropium [Atrovent NEB] 0.5 mg IH Q8HRT #50 ml 03/12/22 Unknown Rx Montelukast [Singulair] 10 mg PO QPM #30 tablet 03/12/22 Unknown Rx Prednisone [predniSONE 10 mg 10 mg PO .TAPER #21 tab 03/12/22 Unknown Rx (6-Day Pack, 21 Tabs)] Allergies Allergy/AdvReac Type Severity Reaction Status Date / Time aspirin Allergy Anaphylaxis Verified 10/20/21 03:10 azithromycin [From Zithromax] Allergy Anaphylaxis Verified 10/20/21 03:10 doxycycline Allergy Rash Verified 10/20/21 03:10 ketorolac tromethamine Allergy Anaphylaxis Verified 10/20/21 03:10 [From Toradol] Latex, Natural Rubber Allergy Angioedema Verified 10/20/21 03:10 morphine Allergy Shortness Verified 10/20/21 03:10 of Breath NSAIDS (Non-Steroidal Allergy Anaphylaxis Verified 10/20/21 03:10 Anti-Inflamma Penicillins Allergy Hives Verified 10/20/21 03:10 ED Review of Systems ROS: Stated complaint: ASTHMA Other details as noted in HPI Constitutional: denies: chills, fever Eyes: denies: eye pain, eye discharge, vision change ENT: congestion. denies: ear pain, throat pain Respiratory: cough, shortness of breath, wheezing Cardiovascular: denies: chest pain, palpitations Endocrine: no symptoms reported Gastrointestinal: denies: abdominal pain, nausea, vomiting, diarrhea, constipation, hematemesis Genitourinary: denies: urgency, dysuria, discharge Musculoskeletal: denies: back pain, joint swelling, arthralgia Skin: denies: rash, lesions Neurological: denies: headache, weakness, paresthesias Psychiatric: denies: anxiety, depression Hematological/Lymphatic: denies: easy bleeding, easy bruising ED Past Medical Hx - Past Medical History Hx Hypertension: No Hx Heart Attack/AMI: No Hx Congestive Heart Failure: No Hx Diabetes: No Hx Deep Vein Thrombosis: No Hx Pulmonary Embolism: No Hx GERD: Yes Hx Liver Disease: No Hx Renal Disease: No Hx Sickle Cell Disease: No Hx Arthritis: No Hx Seizures: No Hx Kidney Stones: No Hx Asthma: Yes Hx COPD: No Hx Tuberculosis: No Hx Dementia: No Hx HIV: No Additional medical history: sinus problems. Prior Intubations x3. Obesity. hypothyroid - Surgical History Hx Coronary Stent: No Hx Open Heart Surgery: No Hx Pacemaker: No Hx Internal Defibrillator: No Hx Cholecystectomy: No Hx Appendectomy: No Hx Breast Surgery: No Additional Surgical History: x4, umbilical hernia repair, sinus surgeries, D&C. thyroid removal. tubligation - Social History Smoking Status: Never Smoker Substance Use Type: Alcohol - Medications Home Medications: Home Medications Medication Instructions Recorded Confirmed Last Taken Type AtorvaSTATin [Lipitor] 40 mg PO QHS 01/12/20 04/23/20 Unknown History Levothyroxine [Synthroid] 25 mcg PO QDAY 02/24/20 04/23/20 Unknown History Ascorbic Acid [Vitamin C] 04/23/20 Unknown History Cinnamon 04/23/20 Unknown History Diphenoxylate/Atropine [Lomotil] 1 tab PO Q6H PRN #14 tablet 04/23/20 Unknown Rx Ergocalciferol(Vitamin D2)(Nf) 04/23/20 Unknown History [Vitamin D (Nf)] Vitamin E (Dl,Tocopheryl Acet) 04/23/20 Unknown History [Vitamin E] metroNIDAZOLE [Flagyl TAB] 500 mg PO Q12H #14 tablet 04/23/20 Unknown Rx Prednisone [predniSONE 10 mg 10 mg PO .TAPER #21 tab.ds.pk 05/16/20 Unknown Rx (6-Day Pack, 21 Tabs)] Prednisone [predniSONE 10 mg 10 mg PO .TAPER #1 tab.ds.pk 06/14/20 Unknown Rx (6-Day Pack, 21 Tabs)] Albuterol Sulfate [Proair 1 - 2 puff IH Q4HR PRN #1 06/24/20 Unknown Rx Digihaler] aer.pw.bas Sulfamethoxazole/Trimethoprim 1 each PO BID #20 tablet 06/24/20 Unknown Rx [Bactrim DS TAB] Albuterol Sulfate [Albuterol 0.63% 0.63 mg IH Q4HR PRN #2 ml 08/23/20 Unknown Rx NEBS] Albuterol Sulfate [Proair 90 mcg IH Q4HR PRN #2 aer.pow.ba 08/23/20 Unknown Rx Respiclick] Ipratropium (Nf) [Atrovent HFA 2 puff IH Q6HR PRN #1 inha 08/23/20 Unknown Rx 17MCG/PUFF] ALBUTEROL NEB's [Proventil 0.083% 2.5 mg IH TID PRN #1 box 09/16/20 Unknown Rx NEBS] Famotidine [Pepcid] 20 mg PO BID #20 tablet 10/08/20 Unknown Rx Ondansetron [Zofran Odt] 4 mg PO Q8HR PRN #15 tab.rapdis 10/08/20 Unknown Rx predniSONE [Deltasone] 40 mg PO QDAY 4 Days tab 10/08/20 Unknown Rx Ipratropium [Atrovent] 0.5 mg IH Q4HWA #1 box 10/24/20 Unknown Rx Prednisone [predniSONE 10 mg 10 mg PO .TAPER #1 tab.ds.pk 10/24/20 Unknown Rx (6-Day Pack, 21 Tabs)] levoFLOXacin [Levaquin TAB] 500 mg PO QDAY #7 tablet 10/24/20 Unknown Rx ALBUTEROL NEB's [Proventil 0.083% 3 ml IH Q6H PRN 30 Days #75 ml 01/11/21 Unknown Rx NEBS] Fluticasone/Salmeterol [Advair 1 puff IH BID #1 01/11/21 Unknown Rx Diskus 500-50 mcg] Ipratropium 0.06% [Atrovent] 2 spray NS Q8HR #1 bottle 01/11/21 Unknown Rx Ipratropium [Atrovent NEB] 0.5 mg IH Q4HR #2 ml 04/07/21 Unknown Rx levoFLOXacin [Levaquin TAB] 500 mg PO Q24HR #7 tablet 01/11/21 Unknown Rx predniSONE [Deltasone] 20 mg PO QDAY #20 tab 01/11/21 Unknown Rx predniSONE [Deltasone] 40 mg PO DAILY 5 Days #10 tablet 05/10/21 Unknown Rx Ipratropium (Nf) [Atrovent] 2 puff IH Q6HR PRN #1 inha 09/19/21 Unknown Rx Prednisone [predniSONE 10 mg 10 mg PO .TAPER #1 tab.ds.pk 09/19/21 Unknown Rx (6-Day Pack, 21 Tabs)] Albuterol Sulfate [Albuterol 0.63% 0.63 mg IH Q4HR PRN #2 ml 10/20/21 Unknown Rx NEBS] Albuterol Sulfate [Proair 90 mcg IH Q4HR PRN #2 aer.pow.ba 10/20/21 Unknown Rx Respiclick] Ipratropium (Nf) [Atrovent] 2 puff IH Q6HR PRN #1 inha 10/20/21 Unknown Rx Ipratropium [Atrovent NEB] 0.5 mg IH Q4HR #2 ml 10/20/21 Unknown Rx ALBUTEROL NEB's [Proventil 0.083% 2.5 mg IH TID PRN #1 box 11/17/21 Unknown Rx NEBS] predniSONE [Deltasone] 40 mg PO QDAY 5 Days tab 11/17/21 Unknown Rx predniSONE [Deltasone] 50 mg PO QDAY #5 tab 11/29/21 Unknown Rx ALBUTEROL NEB's [Proventil 0.083% 2.5 mg IH TID PRN #30 neb 12/16/21 Unknown Rx NEBS] Montelukast [Singulair] 10 mg PO QPM #14 tablet 12/16/21 Unknown Rx Ipratropium [place] 15 ml NS BID PRN 10 Days #1 spray 02/15/22 Unknown Rx Levocetirizine Dihydrochloride 5 mg PO DAILY 30 Days #30 tab 02/15/22 Unknown Rx [Xyzal] predniSONE [Deltasone] 50 mg PO QDAY 5 Days #5 tab 02/15/22 Unknown Rx Ipratropium (Nf) [Atrovent HFA 2 puff IH Q6HR PRN #1 inha 02/27/22 Unknown Rx 17MCG/PUFF] predniSONE [Deltasone] 40 mg PO DAILY 5 Days #10 02/27/22 Unknown Rx ALBUTEROL NEB's [Proventil 0.083% 3 ml IH Q6H PRN #75 ml 03/12/22 Unknown Rx NEBS] Albuterol Mdi (or & Nicu Only) 2 puff IH QID PRN #1 inhalation 03/12/22 Unknown Rx [ProAir HFA Inhaler] Benzonatate [Tessalon Perles] 100 mg PO Q8HR #30 capsule 03/12/22 Unknown Rx Cetirizine HCl/Pseudoephedrine 1 each PO BID PRN #60 tab 03/12/22 Unknown Rx [Zyrtec-D Tablet] Ipratropium [Atrovent NEB] 0.5 mg IH Q8HRT #50 ml 03/12/22 Unknown Rx Montelukast [Singulair] 10 mg PO QPM #30 tablet 03/12/22 Unknown Rx Prednisone [predniSONE 10 mg 10 mg PO .TAPER #21 tab 03/12/22 Unknown Rx (6-Day Pack, 21 Tabs)] ED Physical Exam - General General appearance: alert, in no apparent distress - Head Head exam: Present: atraumatic, normocephalic, normal inspection - Eye Eye exam: Present: normal appearance, PERRL, EOMI Pupils: Present: normal accommodation - ENT ENT exam: Present: normal orophraynx, mucous membranes moist, TM's normal bilaterally, normal external ear exam, other (Grossly congested nasal passages, palpable frontal sinus pressure) - Neck Neck exam: Present: normal inspection, full ROM. Absent: tenderness - Respiratory Respiratory exam: Present: wheezes (Mildly diffuse coarse wheezes throughout). Absent: normal lung sounds bilaterally, respiratory distress, rales, rhonchi, stridor, chest wall tenderness, accessory muscle use, decreased breath sounds, prolonged expiratory - Cardiovascular Cardiovascular Exam: Present: regular rate, normal rhythm, normal heart sounds. Absent: systolic murmur, diastolic murmur, rubs, gallop - GI/Abdominal GI/Abdominal exam: Present: soft, normal bowel sounds. Absent: tenderness, guarding, rebound, hyperactive bowel sounds, hypoactive bowel sounds, organomegaly, mass - Extremities Exam Extremities exam: Present: normal inspection, full ROM, normal capillary refill. Absent: tenderness - Back Exam Back exam: Present: normal inspection, full ROM. Absent: tenderness, CVA tenderness (R), CVA tenderness (L), muscle spasm, paraspinal tenderness, vertebral tenderness - Neurological Exam Neurological exam: Present: alert, oriented X3, CN II-XII intact, normal gait, reflexes normal - Psychiatric Psychiatric exam: Present: normal affect, normal mood - Skin Skin exam: Present: warm, dry, intact, normal color. Absent: rash ED Course Vital Signs 03/12/22 03/12/22 04:00 05:05 Pulse Rate [ 90 86 Anterior Bilateral Throughout] Respiratory 20 18 Rate [Anterior Bilateral Throughout] ED Medical Decision Making - Radiology Data Radiology results: report reviewed, image reviewed [address] [address] XRay Report Signed Patient: DAHIANA GERMAN MR#: [id number] : 1970 Acct:[id number] Age/Sex: 51 / F ADM Date: 03/12/22 Loc: ED Attending Dr: Ordering Physician: LIDIA FINNEGAN Date of Service: 03/12/22 Procedure(s): XR chest 1V ap Accession Number(s): [id number] cc: LIDIA FINNEGAN Fluoro Time In Minutes: CHEST 1 VIEW INDICATION / CLINICAL INFORMATION: cough, dyspnea, asthma. COMPARISON: 02/15/2022 FINDINGS: SUPPORT DEVICES: None. HEART / MEDIASTINUM: No significant abnormality. LUNGS / PLEURA: No significant pulmonary or pleural abnormality. No pneumothorax. ADDITIONAL FINDINGS: No significant additional findings. IMPRESSION: 1. No acute findings. Signer Name: Wilian Tavarez MD Signed: 03/12/2022 5:32 AM Workstation Name: [id number] Transcribed By: TL Dictated By: Wilian Tavarez MD Electronically Authenticated By: Wilian Tavarez MD Signed Date/Time: 03/12/22531 DD/ 1 TD/TT: - Medical Decision Making This is a 51-year-old -[place] female with a history of morbid obesity, asthma, GERD and hypothyroidism who presents to the ED with complaint of acute exacerbation of her chronic asthma characterized by shortness of breath, wheezing, dry cough, chest tightness and frontal sinus pressure after inhaling injury and fumes from a defective leaking engine for the last 3 days. Patient states that she has been using her albuterol inhaler and nebulizer at home with no relief, and ran out of her medications 2 days ago. In the ED, patient is alert and oriented x3 and is not in any distress. Patient vital signs are stable, with oxygen saturation of 98% in room air. Patient received nebulizer treatment with ipratropium 1 mg, and albuterol 10 mg as well as Solu-Medrol 125 mg intramuscular injection. Chest x-ray showed no acute cardiopulmonary abnormalities or pneumonitis. On reevaluation, patient felt better, wheezing resolved and patient's oxygen saturation remained between 98 and 99% in room air. Patient was discharged home on medications and advised to follow-up with her primary care physician in 5 to 7 days for reevaluation or return to the ED immediately if symptoms get worse. - Differential Diagnosis Asthma; bronchitis; pneumonia; sinusitis; URI Critical care attestation.: If time is entered above; I have spent that time in minutes in the direct care of this critically ill patient, excluding procedure time. ED Disposition Clinical Impression: Acute upper respiratory infection, Acute recurrent frontal sinusitis, Acute bronchitis with asthma with acute exacerbation Disposition: 01 HOME / SELF CARE / HOMELESS Is pt being admited?: No Does the pt Need Aspirin: No Condition: Stable Instructions: Sinusitis, Adult, [id number], Upper Respiratory Infection, Adult, [id number], Cough, Adult, [id number], Acute Bronchitis, Adult, [id number], Asthma, Adult, [id number] Additional Instructions: Your chest x-ray showed no acute cardiopulmonary abnormalities or pneumonitis. Take medication with food, drink plenty of fluids and follow-up with your primary care physician in 5 to 7 days for reevaluation. Return to the ED immediately if symptoms get worse. Prescriptions: Ipratropium [Atrovent NEB] 0.5 mg IH Q8HRT #50 ml Prednisone [predniSONE 10 mg (6-Day Pack, 21 Tabs)] 10 mg PO .TAPER #21 tab Albuterol Mdi (or & Nicu Only) [ProAir HFA Inhaler] 2 puff IH QID PRN #1 inhalation PRN Reason: Shortness Of Breath ALBUTEROL NEB's [Proventil 0.083% NEBS] 3 ml IH Q6H PRN #75 ml PRN Reason: Shortness Of Breath Montelukast [Singulair] 10 mg PO QPM #30 tablet Benzonatate [Tessalon Perles] 100 mg PO Q8HR #30 capsule Cetirizine HCl/Pseudoephedrine [Zyrtec-D Tablet] 1 each PO BID PRN #60 tab PRN Reason: Congestion Referrals: [facility] [Provider Group] - 3-5 Days Time of Disposition: 05:49 Print Language: NIGERIAN
[2022-03-12 06:56] VITALS: BP 139/85
== END 2022-03-12 06:43 | disposition home or self-care (01) ==
LOC: ED 03:40
DX: J06.9 Acute upper respiratory infection, unspecified (principal); J01.11 Acute recurrent frontal sinusitis; J45.901 Unspecified asthma with (acute) exacerbation; K21.9 Gastro-esophageal reflux disease without esophagitis; Z98.890 Other specified postprocedural states
CPT/HCPCS: 71045; 94644; 96372; 99283; J2930

== ENCOUNTER 2022-03-22 23:18 | Emergency (ER) | payer MEDICARE ==
[2022-03-23 00:15] VITALS: BP 118/78
--- NOTE | 2022-03-23 13:57 | XRay Report ---
XR chest routine 2V INDICATION / CLINICAL INFORMATION: SOB. COMPARISON: 03/12/2022 FINDINGS: SUPPORT DEVICES: None. HEART /PULMONARY VASCULATURE: No significant abnormality. LUNGS / PLEURA: No significant pulmonary or pleural abnormality. No pneumothorax. ADDITIONAL FINDINGS: No significant additional findings. IMPRESSION: 1. No acute findings. Signer Name: Hero Akbar MD Signed: 03/23/2022 1:53 PM Workstation Name: [id number]
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
== END 2022-03-23 15:30 | disposition home or self-care (01) ==
LOC: ED 23:18
DX: T59.91XA Toxic effect of unspecified gases, fumes and vapors, accidental (unintentional), initial encounter (principal); Y92.89 Other specified places as the place of occurrence of the external cause; K21.9 Gastro-esophageal reflux disease without esophagitis; J45.909 Unspecified asthma, uncomplicated; Z88.1 Allergy status to other antibiotic agents; Z91.040 Latex allergy status; Z88.0 Allergy status to penicillin; Z91.09 Other allergy status, other than to drugs and biological substances; Z79.899 Other long term (current) drug therapy
CPT/HCPCS: 71046; 99283

== ENCOUNTER → 2022-03-27 | Emergency (ER) | payer MEDICARE ==
[2022-03-28 03:23] VITALS: BP 131/89
== END | disposition left against medical advice (07) ==
LOC: ED 23:22
DX: R10.9 Unspecified abdominal pain (principal); Z53.21 Procedure and treatment not carried out due to patient leaving prior to being seen by health care provider

== ENCOUNTER 2022-03-30 03:40 | Emergency (ER) | payer MEDICARE ==
[2022-03-30 04:19] VITALS: BP 109/74
--- NOTE | 2022-03-30 05:00 | XRay Report ---
CHEST 2 VIEWS INDICATION / CLINICAL INFORMATION: CHEST PAIN. COMPARISON: Chest x-ray 03/23/2022 FINDINGS: SUPPORT DEVICES: None. HEART / MEDIASTINUM: Heart size and mediastinal contour appear within normal limits. LUNGS / PLEURA: No significant pulmonary or pleural abnormality. No pneumothorax. BONES: No significant osseous abnormality. ADDITIONAL FINDINGS: No significant additional findings. IMPRESSION: 1. No active cardiopulmonary disease. Signer Name: Efrain Pryor II, MD Signed: 03/30/2022 4:56 AM Workstation Name: [id number]
[2022-03-30 05:46] LABS: Basophils % (Auto) 0.5 % (0.0-1.8); Eosinophils # (Auto) 0.4 K/mm3 (0.0-0.4); Eosinophils % (Auto) 4.6 % (0.0-4.3); Hematocrit 38.6 % (30.3-42.9); Hemoglobin 12.4 gm/dl (10.1-14.3); Lymphocytes # (Auto) 1.9 K/mm3 (1.2-5.4); Lymphocytes % (Auto) 20.8 % (13.4-35.0); Mean Corpuscular HGB Conc 32 % (30-34); Mean Corpuscular Volume 83 fl (79-97); Monocytes % (Auto) 10.7 % (0.0-7.3); Platelet Count 207 K/mm3 (140-440); Red Blood Count 4.63 M/mm3 (3.65-5.03)
[2022-03-30 05:58] LABS: Alanine Aminotransferase 26 units/L (7-56); Albumin 4.2 g/dL (3.9-5); BUN/Creatinine Ratio 17; Blood Urea Nitrogen 19 mg/dL (7-17); Calcium 9.3 mg/dL (8.4-10.2); Hemolysis Index 4
--- NOTE | 2022-03-30 13:52 | Electrocardiograph Report ---
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
== END 2022-03-30 05:45 | disposition left against medical advice (07) ==
LOC: ED 03:40
DX: R07.9 Chest pain, unspecified (principal); J45.909 Unspecified asthma, uncomplicated; Z53.21 Procedure and treatment not carried out due to patient leaving prior to being seen by health care provider
CPT/HCPCS: 36415; 71046; 80053; 84484; 85025; 93005

== ENCOUNTER 2022-04-10 22:47 | Emergency (ER) | payer MEDICARE ==
[2022-04-10 23:13] VITALS: BP 121/75
[2022-04-11] MEDS ORDERED: dexAMETHasone 20 MG/5 ML VIAL IM ONE (03:31)
[2022-04-11] MEDS ORDERED: IPRATROPIUM 0.02% NEBU 2.5 ML IH ONE (03:32)
[2022-04-11] MEDS ORDERED: ALBUTEROL 2.5 MG/3 ML NEBU IH ONE (03:32)
--- NOTE | 2022-04-11 03:40 | Emergency Department Report ---
ED Asthma HPI - General Chief Complaint: Adult Asthma Stated Complaint: CHRONIC ASTHMA/WHEEZING Time Seen by Provider: 04/11/22 03:30 Source: patient Mode of arrival: Ambulatory Limitations: No Limitations - History of Present Illness Initial Comments: Patient is a 51-year-old -Welsh female with history of asthma who presents for shortness of breath and wheezing x2 days. Patient states she takes ipratropium inhaler however it is not improving symptoms today. There is no nausea no vomiting no dizziness or lightheaded no chest pain. There has been no fevers or chills. No sore throat or ear pain. This is a normal asthma exacerbation for this patient. Primary symptom is expiratory wheezing. Symptoms are improved with ipratropium however patient is low on medications at this time. Patient drove self to ED patient is alert oriented x3 amatory with steady gait and speaking in full sentences at this time. There is notable expiratory wheezes. Asthma symptoms rated at 6/10 at this time. MD Complaint: "asthma attack" - Related Data Home Medications Medication Instructions Recorded Confirmed Last Taken AtorvaSTATin [Lipitor] 40 mg PO QHS 01/12/20 04/23/20 Unknown Levothyroxine [Synthroid] 25 mcg PO QDAY 02/24/20 04/23/20 Unknown Ascorbic Acid [Vitamin C] 04/23/20 Unknown Cinnamon 04/23/20 Unknown Ergocalciferol(Vitamin D2)(Nf) 04/23/20 Unknown [Vitamin D (Nf)] Vitamin E (Dl,Tocopheryl Acet) 04/23/20 Unknown [Vitamin E] Previous Rx's Medication Instructions Recorded Last Taken Type Diphenoxylate/Atropine [Lomotil] 1 tab PO Q6H PRN #14 tablet 04/23/20 Unknown Rx metroNIDAZOLE [Flagyl TAB] 500 mg PO Q12H #14 tablet 04/23/20 Unknown Rx Prednisone [predniSONE 10 mg 10 mg PO .TAPER #21 tab.ds.pk 05/16/20 Unknown Rx (6-Day Pack, 21 Tabs)] Prednisone [predniSONE 10 mg 10 mg PO .TAPER #1 tab.ds.pk 06/14/20 Unknown Rx (6-Day Pack, 21 Tabs)] Albuterol Sulfate [Proair 1 - 2 puff IH Q4HR PRN #1 06/24/20 Unknown Rx Digihaler] aer.pw.bas Sulfamethoxazole/Trimethoprim 1 each PO BID #20 tablet 06/24/20 Unknown Rx [Bactrim DS TAB] Albuterol Sulfate [Albuterol 0.63% 0.63 mg IH Q4HR PRN #2 ml 08/23/20 Unknown Rx NEBS] Albuterol Sulfate [Proair 90 mcg IH Q4HR PRN #2 aer.pow.ba 08/23/20 Unknown Rx Respiclick] Famotidine [Pepcid] 20 mg PO BID #20 tablet 10/08/20 Unknown Rx Ondansetron [Zofran Odt] 4 mg PO Q8HR PRN #15 tab.rapdis 10/08/20 Unknown Rx predniSONE [Deltasone] 40 mg PO QDAY 4 Days tab 10/08/20 Unknown Rx Ipratropium [Atrovent] 0.5 mg IH Q4HWA #1 box 10/24/20 Unknown Rx Prednisone [predniSONE 10 mg 10 mg PO .TAPER #1 tab.ds.pk 10/24/20 Unknown Rx (6-Day Pack, 21 Tabs)] levoFLOXacin [Levaquin TAB] 500 mg PO QDAY #7 tablet 10/24/20 Unknown Rx ALBUTEROL NEB's [Proventil 0.083% 3 ml IH Q6H PRN 30 Days #75 ml 01/11/21 Unknow n Rx NEBS] Fluticasone/Salmeterol [Advair 1 puff IH BID #1 01/11/21 Unknown Rx Diskus 500-50 mcg] Ipratropium 0.06% [Atrovent] 2 spray NS Q8HR #1 bottle 01/11/21 Unknown Rx Ipratropium [Atrovent NEB] 0.5 mg IH Q4HR #2 ml 01/11/21 Unknown Rx levoFLOXacin [Levaquin TAB] 500 mg PO Q24HR #7 tablet 01/11/21 Unknown Rx predniSONE [Deltasone] 20 mg PO QDAY #20 tab 01/11/21 Unknown Rx Ipratropium (Nf) [Atrovent] 2 puff IH Q6HR PRN #1 inha 09/19/21 Unknown Rx Prednisone [predniSONE 10 mg 10 mg PO .TAPER #1 tab.ds.pk 09/19/21 Unknown Rx (6-Day Pack, 21 Tabs)] Albuterol Sulfate [Albuterol 0.63% 0.63 mg IH Q4HR PRN #2 ml 10/20/21 Unknown Rx NEBS] Albuterol Sulfate [Proair 90 mcg IH Q4HR PRN #2 aer.pow.ba 10/20/21 Unknown Rx Respiclick] Ipratropium (Nf) [Atrovent] 2 puff IH Q6HR PRN #1 inha 10/20/21 Unknown Rx Ipratropium [Atrovent NEB] 0.5 mg IH Q4HR #2 ml 10/20/21 Unknown Rx ALBUTEROL NEB's [Proventil 0.083% 2.5 mg IH TID PRN #1 box 11/17/21 Unknown Rx NEBS] predniSONE [Deltasone] 40 mg PO QDAY 5 Days tab 11/17/21 Unknown Rx predniSONE [Deltasone] 50 mg PO QDAY #5 tab 11/29/21 Unknown Rx ALBUTEROL NEB's [Proventil 0.083% 2.5 mg IH TID PRN #30 neb 12/16/21 Unknown Rx NEBS] Montelukast [Singulair] 10 mg PO QPM #14 tablet 12/16/21 Unknown Rx Ipratropium [place] 15 ml NS BID PRN 10 Days #1 spray 02/15/22 Unknown Rx Levocetirizine Dihydrochloride 5 mg PO DAILY 30 Days #30 tab 02/15/22 Unknown Rx [Xyzal] predniSONE [Deltasone] 50 mg PO QDAY 5 Days #5 tab 02/15/22 Unknown Rx Ipratropium (Nf) [Atrovent HFA 2 puff IH Q6HR PRN #1 inha 02/27/22 Unknown Rx 17MCG/PUFF] predniSONE [Deltasone] 40 mg PO DAILY 5 Days #10 02/27/22 Unknown Rx ALBUTEROL NEB's [Proventil 0.083% 3 ml IH Q6H PRN #75 ml 03/12/22 Unknown Rx NEBS] Benzonatate [Tessalon Perles] 100 mg PO Q8HR #30 capsule 03/12/22 Unknown Rx Cetirizine HCl/Pseudoephedrine 1 each PO BID PRN #60 tab 03/12/22 Unknown Rx [Zyrtec-D Tablet] Ipratropium [Atrovent NEB] 0.5 mg IH Q8HRT #50 ml 03/12/22 Unknown Rx Montelukast [Singulair] 10 mg PO QPM #30 tablet 03/12/22 Unknown Rx Prednisone [predniSONE 10 mg 10 mg PO .TAPER #21 tab 03/12/22 Unknown Rx (6-Day Pack, 21 Tabs)] predniSONE [Deltasone] 40 mg PO DAILY 10 Days #20 tablet 03/12/22 Unknown Rx Ipratropium/Albuterol Sulfate 1 ampul IH Q6HR #30 ampul.neb 03/23/22 Unknown Rx [DUONEB *Not for PRN Use*] Albuterol Mdi (or & Nicu Only) 2 puff IH QID PRN #8.5 gram 04/11/22 Unknown Rx [ProAir HFA Inhaler] Ipratropium/Albuter (Nf) 2 puff IH QID #1 each 04/11/22 Unknown Rx [Combivent Inhaler] Magnesium Oxide [Mag-Ox] 400 mg PO QDAY #3 tab 04/11/22 Unknown Rx dexAMETHasone [Decadron] 4 mg PO BID 5 Days #10 tablet 04/11/22 Unknown Rx traMADoL [Ultram] 50 mg PO Q8HR PRN #9 tablet 04/11/22 Unknown Rx Allergies Allergy/AdvReac Type Severity Reaction Status Date / Time aspirin Allergy Anaphylaxis Verified 04/10/22 23:13 azithromycin [From Zithromax] Allergy Anaphylaxis Verified 04/10/22 23:13 doxycycline Allergy Rash Verified 04/10/22 23:13 ketorolac tromethamine Allergy Anaphylaxis Verified 04/10/22 23:13 [From Toradol] Latex, Natural Rubber Allergy Angioedema Verified 04/10/22 23:13 morphine Allergy Shortness Verified 04/10/22 23:13 of Breath NSAIDS (Non-Steroidal Allergy Anaphylaxis Verified 04/10/22 23:13 Anti-Inflamma Penicillins Allergy Hives Verified 04/10/22 23:13 ED Review of Systems ROS: Stated complaint: CHRONIC ASTHMA/WHEEZING Other details as noted in HPI Constitutional: denies: chills, fever Eyes: denies: eye pain, eye discharge, vision change ENT: congestion. denies: ear pain, throat pain Respiratory: cough, shortness of breath, wheezing Cardiovascular: denies: chest pain, palpitations Endocrine: no symptoms reported Gastrointestinal: denies: abdominal pain, nausea, vomiting, diarrhea Genitourinary: denies: urgency, dysuria, discharge Musculoskeletal: denies: back pain, joint swelling, arthralgia Skin: denies: rash, lesions Neurological: denies: headache, weakness, paresthesias, vertigo Psychiatric: denies: anxiety, depression Hematological/Lymphatic: denies: easy bleeding, easy bruising ED Past Medical Hx - Past Medical History Previous Medical History?: Yes Hx Hypertension: No Hx Heart Attack/AMI: No Hx Congestive Heart Failure: No Hx Diabetes: No Hx Deep Vein Thrombosis: No Hx Pulmonary Embolism: No Hx GERD: Yes Hx Liver Disease: No Hx Renal Disease: No Hx Sickle Cell Disease: No Hx Arthritis: No Hx Seizures: No Hx Kidney Stones: No Hx Asthma: Yes Hx COPD: No Hx Tuberculosis: No Hx Dementia: No Hx HIV: No Additional medical history: sinus problems. Prior Intubations x3. Obesity. hypothyroid - Surgical History Past Surgical History?: Yes Hx Coronary Stent: No Hx Open Heart Surgery: No Hx Pacemaker: No Hx Internal Defibrillator: No Hx Cholecystectomy: No Hx Appendectomy: No Hx Breast Surgery: No Additional Surgical History: x4, umbilical hernia repair, sinus surgeries, D&C. thyroid removal. tubligation - Social History Smoking Status: Never Smoker Substance Use Type: None - Medications Home Medications: Home Medications Medication Instructions Recorded Confirmed Last Taken Type AtorvaSTATin [Lipitor] 40 mg PO QHS 01/12/20 04/23/20 Unknown History Levothyroxine [Synthroid] 25 mcg PO QDAY 02/24/20 04/23/20 Unknown History Ascorbic Acid [Vitamin C] 04/23/20 Unknown History Cinnamon 04/23/20 Unknown History Diphenoxylate/Atropine [Lomotil] 1 tab PO Q6H PRN #14 tablet 04/23/20 Unknown Rx Ergocalciferol(Vitamin D2)(Nf) 04/23/20 Unknown History [Vitamin D (Nf)] Vitamin E (Dl,Tocopheryl Acet) 04/23/20 Unknown History [Vitamin E] metroNIDAZOLE [Flagyl TAB] 500 mg PO Q12H #14 tablet 04/23/20 Unknown Rx Prednisone [predniSONE 10 mg 10 mg PO .TAPER #21 tab.ds.pk 05/16/20 Unknown Rx (6-Day Pack, 21 Tabs)] Prednisone [predniSONE 10 mg 10 mg PO .TAPER #1 tab.ds.pk 06/14/20 Unknown Rx (6-Day Pack, 21 Tabs)] Albuterol Sulfate [Proair 1 - 2 puff IH Q4HR PRN #1 06/24/20 Unknown Rx Digihaler] aer.pw.bas Sulfamethoxazole/Trimethoprim 1 each PO BID #20 tablet 06/24/20 Unknown Rx [Bactrim DS TAB] Albuterol Sulfate [Albuterol 0.63% 0.63 mg IH Q4HR PRN #2 ml 08/23/20 Unknown Rx NEBS] Albuterol Sulfate [Proair 90 mcg IH Q4HR PRN #2 aer.pow.ba 08/23/20 Unknown Rx Respiclick] Famotidine [Pepcid] 20 mg PO BID #20 tablet 10/08/20 Unknown Rx Ondansetron [Zofran Odt] 4 mg PO Q8HR PRN #15 tab.rapdis 10/08/20 Unknown Rx predniSONE [Deltasone] 40 mg PO QDAY 4 Days tab 10/08/20 Unknown Rx Ipratropium [Atrovent] 0.5 mg IH Q4HWA #1 box 10/24/20 Unknown Rx Prednisone [predniSONE 10 mg 10 mg PO .TAPER #1 tab.ds.pk 10/24/20 Unknown Rx (6-Day Pack, 21 Tabs)] levoFLOXacin [Levaquin TAB] 500 mg PO QDAY #7 tablet 10/24/20 Unknown Rx ALBUTEROL NEB's [Proventil 0.083% 3 ml IH Q6H PRN 30 Days #75 ml 01/11/21 Unknown Rx NEBS] Fluticasone/Salmeterol [Advair 1 puff IH BID #1 01/11/21 Unknown Rx Diskus 500-50 mcg] Ipratropium 0.06% [Atrovent] 2 spray NS Q8HR #1 bottle 01/11/21 Unknown Rx Ipratropium [Atrovent NEB] 0.5 mg IH Q4HR #2 ml 01/11/21 Unknown Rx levoFLOXacin [Levaquin TAB] 500 mg PO Q24HR #7 tablet 01/11/21 Unknown Rx predniSONE [Deltasone] 20 mg PO QDAY #20 tab 01/11/21 Unknown Rx Ipratropium (Nf) [Atrovent] 2 puff IH Q6HR PRN #1 inha 09/19/21 Unknown Rx Prednisone [predniSONE 10 mg 10 mg PO .TAPER #1 tab.ds.pk 09/19/21 Unknown Rx (6-Day Pack, 21 Tabs)] Albuterol Sulfate [Albuterol 0.63% 0.63 mg IH Q4HR PRN #2 ml 10/20/21 Unknown Rx NEBS] Albuterol Sulfate [Proair 90 mcg IH Q4HR PRN #2 aer.pow.ba 10/20/21 Unknown Rx Respiclick] Ipratropium (Nf) [Atrovent] 2 puff IH Q6HR PRN #1 inha 10/20/21 Unknown Rx Ipratropium [Atrovent NEB] 0.5 mg IH Q4HR #2 ml 10/20/21 Unknown Rx ALBUTEROL NEB's [Proventil 0.083% 2.5 mg IH TID PRN #1 box 11/17/21 Unknown Rx NEBS] predniSONE [Deltasone] 40 mg PO QDAY 5 Days tab 11/17/21 Unknown Rx predniSONE [Deltasone] 50 mg PO QDAY #5 tab 11/29/21 Unknown Rx ALBUTEROL NEB's [Proventil 0.083% 2.5 mg IH TID PRN #30 neb 12/16/21 Unknown Rx NEBS] Montelukast [Singulair] 10 mg PO QPM #14 tablet 12/16/21 Unknown Rx Ipratropium [place] 15 ml NS BID PRN 10 Days #1 spray 02/15/22 Unknown Rx Levocetirizine Dihydrochloride 5 mg PO DAILY 30 Days #30 tab 02/15/22 Unknown Rx [Xyzal] predniSONE [Deltasone] 50 mg PO QDAY 5 Days #5 tab 02/15/22 Unknown Rx Ipratropium (Nf) [Atrovent HFA 2 puff IH Q6HR PRN #1 inha 02/27/22 Unknown Rx 17MCG/PUFF] predniSONE [Deltasone] 40 mg PO DAILY 5 Days #10 02/27/22 Unknown Rx ALBUTEROL NEB's [Proventil 0.083% 3 ml IH Q6H PRN #75 ml 03/12/22 Unknown Rx NEBS] Benzonatate [Tessalon Perles] 100 mg PO Q8HR #30 capsule 03/12/22 Unknown Rx Cetirizine HCl/Pseudoephedrine 1 each PO BID PRN #60 tab 03/12/22 Unknown Rx [Zyrtec-D Tablet] Ipratropium [Atrovent NEB] 0.5 mg IH Q8HRT #50 ml 03/12/22 Unknown Rx Montelukast [Singulair] 10 mg PO QPM #30 tablet 03/12/22 Unknown Rx Prednisone [predniSONE 10 mg 10 mg PO .TAPER #21 tab 03/12/22 Unknown Rx (6-Day Pack, 21 Tabs)] predniSONE [Deltasone] 40 mg PO DAILY 10 Days #20 tablet 03/12/22 Unknown Rx Ipratropium/Albuterol Sulfate 1 ampul IH Q6HR #30 ampul.neb 03/23/22 Unknown Rx [DUONEB *Not for PRN Use*] Albuterol Mdi (or & Nicu Only) 2 puff IH QID PRN #8.5 gram 04/11/22 Unknown Rx [ProAir HFA Inhaler] Ipratropium/Albuter (Nf) 2 puff IH QID #1 each 04/11/22 Unknown Rx [Combivent Inhaler] Magnesium Oxide [Mag-Ox] 400 mg PO QDAY #3 tab 04/11/22 Unknown Rx dexAMETHasone [Decadron] 4 mg PO BID 5 Days #10 tablet 04/11/22 Unknown Rx traMADoL [Ultram] 50 mg PO Q8HR PRN #9 tablet 04/11/22 Unknown Rx ED Physical Exam - General Limitations: No Limitations General appearance: alert, in no apparent distress - Head Head exam: Present: normocephalic, normal inspection - Eye Eye exam: Present: EOMI Pupils: Present: normal accommodation - ENT ENT exam: Present: normal orophraynx, mucous membranes moist - Neck Neck exam: Present: normal inspection, full ROM. Absent: tenderness, lymphadenopathy - Respiratory Respiratory exam: Present: wheezes. Absent: respiratory distress, rales, rhonchi, stridor, chest wall tenderness, prolonged expiratory - Cardiovascular Cardiovascular Exam: Present: regular rate, normal rhythm, normal heart sounds. Absent: rubs, gallop, clicks, S3, S4 - GI/Abdominal GI/Abdominal exam: Present: soft, normal bowel sounds. Absent: distended, tenderness - Rectal Rectal exam: Present: deferred - Extremities Exam Extremities exam: Present: normal inspection, full ROM, normal capillary refill. Absent: tenderness, pedal edema - Back Exam Back exam: Present: normal inspection, full ROM. Absent: CVA tenderness (R), CVA tenderness (L) - Neurological Exam Neurological exam: Present: alert, oriented X3, CN II-XII intact, normal gait - Expanded Neurological Exam Expanded Patient oriented to: Present: person, place, time Speech: Present: fluid speech Best Eye Response ([place]): (4) open spontaneously Best Motor Response ([place]): (6) obeys commands Best Verbal Response ([place]): (5) oriented [place] Total: 15 - Psychiatric Psychiatric exam: Present: normal affect, normal mood - Skin Skin exam: Present: warm, dry, intact, normal color. Absent: rash ED Course Vital Signs 04/10/22 23:10 Temperature 98.8 F Pulse Rate 79 Respiratory 18 Rate Blood Pressure 121/75 [Left] O2 Sat by Pulse 94 Oximetry ED Medical Decision Making - Medical Decision Making Symptoms improved with medications given in ED. Patient has ambulated from room to bathroom and back to room without increased shortness of breath or wheezing. Plan DC to home, refill medications as prescribed. Return to emergency should symptoms worsen. Patient will follow up with primary care doctor in 2 to 3 days. Patient DC'd to self in stable condition at this time. Critical care attestation.: If time is entered above; I have spent that time in minutes in the direct care of this critically ill patient, excluding procedure time. ED Disposition Clinical Impression: Asthma Qualifiers: Asthma severity: moderate Asthma complication type: unspecified Asthma with acute exacerbation Qualifiers: Asthma severity: moderate Asthma persistence: unspecified Qualified Code(s): J45.901 - Unspecified asthma with (acute) exacerbation Disposition: 01 HOME / SELF CARE / HOMELESS Is pt being admited?: No Does the pt Need Aspirin: No Condition: Stable Instructions: Asthma (ED), Asthma, Adult, Asthma Attack Prevention, Adult Additional Instructions: Take medications as prescribed, follow-up with your primary care doctor in 2 to 3 days. Return to emergency department should symptoms worsen. Prescriptions: Ipratropium/Albuter (Nf) [Combivent Inhaler] 2 puff IH QID #1 each dexAMETHasone [Decadron] 4 mg PO BID 5 Days #10 tablet Magnesium Oxide [Mag-Ox] 400 mg PO QDAY #3 tab Albuterol Mdi (or & Nicu Only) [ProAir HFA Inhaler] 2 puff IH QID PRN #8.5 gram PRN Reason: Shortness Of Breath REscue traMADoL [Ultram] 50 mg PO Q8HR PRN #9 tablet PRN Reason: Pain Referrals: ANTOLIN JOHNSON MD [Staff Physician] - 3-5 Days Forms: Work/School Release Form(ED) Time of Disposition: 00:00
== END 2022-04-11 07:00 | disposition home or self-care (01) ==
LOC: ED 22:47
DX: J45.901 Unspecified asthma with (acute) exacerbation (principal); K21.9 Gastro-esophageal reflux disease without esophagitis; E03.9 Hypothyroidism, unspecified; Z98.890 Other specified postprocedural states; Z88.0 Allergy status to penicillin; Z88.1 Allergy status to other antibiotic agents; Z88.5 Allergy status to narcotic agent; Z88.6 Allergy status to analgesic agent; Z88.8 Allergy status to other drugs, medicaments and biological substances; Z91.040 Latex allergy status
CPT/HCPCS: 94640; 96372; 99282; J1100

== ENCOUNTER 2022-04-13 21:02 | Emergency (ER) | payer MEDICARE ==
[2022-04-13] MEDS ORDERED: ACETAMINOPHEN 325 MG TAB PO ONE (21:22)
[2022-04-13] MEDS ORDERED: IPRATROPIUM 0.02% NEBU 2.5 ML IH ONE (23:33)
[2022-04-13] MEDS ORDERED: ALBUTEROL 2.5 MG/3 ML NEBU IH ONE (23:33)
[2022-04-13] MEDS ORDERED: levoFLOXacin 500 MG TAB PO ONE (23:35)
[2022-04-13 23:40] VITALS: BP 104/53
--- NOTE | 2022-04-14 00:16 | XRay Report ---
CHEST 1 VIEW 04/13/2022 10:55 PM INDICATION / CLINICAL INFORMATION: cough, asthma. COMPARISON: 03/30/2022. FINDINGS: SUPPORT DEVICES: None. HEART / MEDIASTINUM: No significant abnormality. LUNGS / PLEURA: No significant pulmonary or pleural abnormality. No pneumothorax. ADDITIONAL FINDINGS: No significant additional findings. IMPRESSION: No acute abnormality. Signer Name: Robbi Duran MD Signed: 04/14/2022 12:11 AM Workstation Name: [id number]
--- NOTE | 2022-04-14 00:43 | Emergency Department Report ---
- General Chief Complaint: Upper Respiratory Infection Stated Complaint: RESPIRATORY PROBLEMS Source: patient Mode of arrival: Ambulatory Limitations: No Limitations - History of Present Illness Initial Comments: Patient is a 51-year-old -B[place] female with history of GERD, asthma and chronic seasonal allergies who presents to the ED with complaint of acute onset persistent nasal and sinus congestion, persistent cough with yellowish- green phlegm for the last 3 days. Patient states that she has also been feeling generalized weakness, diffuse body aches and pains, fever and chills for the las t 12 hours. Patient states that she had albuterol inhaler treatment prior to arrival in the ED. Patient denies dizziness, syncope, chest pain, nausea and vomiting, diarrhea, dysuria, urinary frequency and urgency, change in vision, back pain, abdominal pain or sore throat. MD Complaint: fever, cough, rhinorrhea, nasal congestion, sinus pain -: days(s) (3) Severity: severe Severity scale (0 -10): 7 Quality: sharp, aching Consistency: constant Improves With: nothing Worsens With: nothing Associated Symptoms: denies other symptoms, fever, chills, myalgias, headache, rhinorrhea, nasal congestion, cough. denies: sore throat, stiff neck, chest pain, shortness of breath, abdominal pain, nausea, vomiting, diarrhea, dysuria, rash, right sweats, weight loss, epistaxis, hoarseness, ear pain Treatments Prior to Arrival: none - Related Data Home Medications Medication Instructions Recorded Confirmed Last Taken AtorvaSTATin [Lipitor] 40 mg PO QHS 01/12/20 04/23/20 Unknown Levothyroxine [Synthroid] 25 mcg PO QDAY 02/24/20 04/23/20 Unknown Ascorbic Acid [Vitamin C] 04/23/20 Unknown Cinnamon 04/23/20 Unknown Ergocalciferol(Vitamin D2)(Nf) 04/23/20 Unknown [Vitamin D (Nf)] Vitamin E (Dl,Tocopheryl Acet) 04/23/20 Unknown [Vitamin E] Previous Rx's Medication Instructions Recorded Last Taken Type Diphenoxylate/Atropine [Lomotil] 1 tab PO Q6H PRN #14 tablet 04/23/20 Unknown Rx metroNIDAZOLE [Flagyl TAB] 500 mg PO Q12H #14 tablet 04/23/20 Unknown Rx Prednisone [predniSONE 10 mg 10 mg PO .TAPER #21 tab.ds.pk 05/16/20 Unknown Rx (6-Day Pack, 21 Tabs)] Prednisone [predniSONE 10 mg 10 mg PO .TAPER #1 tab.ds.pk 06/14/20 Unknown Rx (6-Day Pack, 21 Tabs)] Albuterol Sulfate [Proair 1 - 2 puff IH Q4HR PRN #1 06/24/20 Unknown Rx Digihaler] aer.pw.bas Sulfamethoxazole/Trimethoprim 1 each PO BID #20 tablet 06/24/20 Unknown Rx [Bactrim DS TAB] Albuterol Sulfate [Albuterol 0.63% 0.63 mg IH Q4HR PRN #2 ml 08/23/20 Unknown Rx NEBS] Albuterol Sulfate [Proair 90 mcg IH Q4HR PRN #2 aer.pow.ba 08/23/20 Unknown Rx Respiclick] Famotidine [Pepcid] 20 mg PO BID #20 tablet 10/08/20 Unknown Rx Ondansetron [Zofran Odt] 4 mg PO Q8HR PRN #15 tab.rapdis 10/08/20 Unknown Rx predniSONE [Deltasone] 40 mg PO QDAY 4 Days tab 10/08/20 Unknown Rx Ipratropium [Atrovent] 0.5 mg IH Q4HWA #1 box 10/24/20 Unknown Rx Prednisone [predniSONE 10 mg 10 mg PO .TAPER #1 tab.ds.pk 10/24/20 Unknown Rx (6-Day Pack, 21 Tabs)] levoFLOXacin [Levaquin TAB] 500 mg PO QDAY #7 tablet 10/24/20 Unknown Rx ALBUTEROL NEB's [Proventil 0.083% 3 ml IH Q6H PRN 30 Days #75 ml 01/11/21 Unknown Rx NEBS] Fluticasone/Salmeterol [Advair 1 puff IH BID #1 01/11/21 Unknown Rx Diskus 500-50 mcg] Ipratropium 0.06% [Atrovent] 2 spray NS Q8HR #1 bottle 01/11/21 Unknown Rx Ipratropium [Atrovent NEB] 0.5 mg IH Q4HR #2 ml 01/11/21 Unknown Rx levoFLOXacin [Levaquin TAB] 500 mg PO Q24HR #7 tablet 01/11/21 Unknown Rx predniSONE [Deltasone] 20 mg PO QDAY #20 tab 01/11/21 Unknown Rx Ipratropium (Nf) [Atrovent] 2 puff IH Q6HR PRN #1 inha 09/19/21 Unknown Rx Prednisone [predniSONE 10 mg 10 mg PO .TAPER #1 tab.ds.pk 09/19/21 Unknown Rx (6-Day Pack, 21 Tabs)] Albuterol Sulfate [Albuterol 0.63% 0.63 mg IH Q4HR PRN #2 ml 10/20/21 Unknown Rx NEBS] Albuterol Sulfate [Proair 90 mcg IH Q4HR PRN #2 aer.pow.ba 10/20/21 Unknown Rx Respiclick] Ipratropium (Nf) [Atrovent] 2 puff IH Q6HR PRN #1 inha 10/20/21 Unknown Rx Ipratropium [Atrovent NEB] 0.5 mg IH Q4HR #2 ml 10/20/21 Unknown Rx ALBUTEROL NEB's [Proventil 0.083% 2.5 mg IH TID PRN #1 box 11/17/21 Unknown Rx NEBS] predniSONE [Deltasone] 40 mg PO QDAY 5 Days tab 11/17/21 Unknown Rx predniSONE [Deltasone] 50 mg PO QDAY #5 tab 11/29/21 Unknown Rx ALBUTEROL NEB's [Proventil 0.083% 2.5 mg IH TID PRN #30 neb 12/16/21 Unknown Rx NEBS] Montelukast [Singulair] 10 mg PO QPM #14 tablet 12/16/21 Unknown Rx Ipratropium [place] 15 ml NS BID PRN 10 Days #1 spray 02/15/22 Unknown Rx Levocetirizine Dihydrochloride 5 mg PO DAILY 30 Days #30 tab 02/15/22 Unknown Rx [Xyzal] predniSONE [Deltasone] 50 mg PO QDAY 5 Days #5 tab 02/15/22 Unknown Rx Ipratropium (Nf) [Atrovent HFA 2 puff IH Q6HR PRN #1 inha 02/27/22 Unknown Rx 17MCG/PUFF] predniSONE [Deltasone] 40 mg PO DAILY 5 Days #10 02/27/22 Unknown Rx ALBUTEROL NEB's [Proventil 0.083% 3 ml IH Q6H PRN #75 ml 03/12/22 Unknown Rx NEBS] Benzonatate [Tessalon Perles] 100 mg PO Q8HR #30 capsule 03/12/22 Unknown Rx Cetirizine HCl/Pseudoephedrine 1 each PO BID PRN #60 tab 03/12/22 Unknown Rx [Zyrtec-D Tablet] Ipratropium [Atrovent NEB] 0.5 mg IH Q8HRT #50 ml 03/12/22 Unknown Rx Montelukast [Singulair] 10 mg PO QPM #30 tablet 03/12/22 Unknown Rx Prednisone [predniSONE 10 mg 10 mg PO .TAPER #21 tab 03/12/22 Unknown Rx (6-Day Pack, 21 Tabs)] predniSONE [Deltasone] 40 mg PO DAILY 10 Days #20 tablet 03/12/22 Unknown Rx Ipratropium/Albuterol Sulfate 1 ampul IH Q6HR #30 ampul.neb 03/23/22 Unknown Rx [DUONEB *Not for PRN Use*] Albuterol Mdi (or & Nicu Only) 2 puff IH QID PRN #8.5 gram 04/11/22 Unknown Rx [ProAir HFA Inhaler] Ipratropium/Albuter (Nf) 2 puff IH QID #1 each 04/11/22 Unknown Rx [Combivent Inhaler] Magnesium Oxide [Mag-Ox] 400 mg PO QDAY #3 tab 04/11/22 Unknown Rx dexAMETHasone [Decadron] 4 mg PO BID 5 Days #10 tablet 04/11/22 Unknown Rx traMADoL [Ultram] 50 mg PO Q8HR PRN #9 tablet 04/11/22 Unknown Rx Acetaminophen [Tylenol] 500 mg PO Q6HR PRN #40 tablet 04/14/22 Unknown Rx Brompheniramine/Pseudoephed/Dm 5 ml PO Q8H PRN #125 ml 04/14/22 Unknown Rx [Bromfed Dm Cough Syrup] Cetirizine HCl [Zyrtec 10mg tab] 10 mg PO DAILY #60 tab 04/14/22 Unknown Rx levoFLOXacin [Levaquin] 750 mg PO QDAY #7 tablet 04/14/22 Unknown Rx predniSONE [Deltasone] 60 mg PO DAILY #15 tab 04/14/22 Unknown Rx Allergies Allergy/AdvReac Type Severity Reaction Status Date / Time aspirin Allergy Anaphylaxis Verified 04/10/22 23:13 azithromycin [From Zithromax] Allergy Anaphylaxis Verified 04/10/22 23:13 doxycycline Allergy Rash Verified 04/10/22 23:13 ketorolac tromethamine Allergy Anaphylaxis Verified 04/10/22 23:13 [From Toradol] Latex, Natural Rubber Allergy Angioedema Verified 04/10/22 23:13 morphine Allergy Shortness Verified 04/10/22 23:13 of Breath NSAIDS (Non-Steroidal Allergy Anaphylaxis Verified 04/10/22 23:13 Anti-Inflamma Penicillins Allergy Hives Verified 04/10/22 23:13 ED Review of Systems ROS: Stated complaint: RESPIRATORY PROBLEMS Other details as noted in HPI Constitutional: chills, fever, malaise Eyes: denies: eye pain, eye discharge, vision change ENT: congestion, other (Frontal sinus pressure). denies: ear pain, throat pain Respiratory: cough (Cough with yellowish-green phlegm), shortness of breath, wheezing Cardiovascular: denies: chest pain, palpitations Endocrine: no symptoms reported Gastrointestinal: denies: abdominal pain, nausea, vomiting, diarrhea Genitourinary: denies: urgency, dysuria, discharge Musculoskeletal: denies: back pain, joint swelling, arthralgia Skin: denies: rash, lesions Neurological: headache. denies: weakness, paresthesias Psychiatric: denies: anxiety, depression Hematological/Lymphatic: denies: easy bleeding, easy bruising ED Past Medical Hx - Past Medical History Previous Medical History?: Yes Hx Hypertension: No Hx Heart Attack/AMI: No Hx Congestive Heart Failure: No Hx Diabetes: No Hx Deep Vein Thrombosis: No Hx Pulmonary Embolism: No Hx GERD: Yes Hx Liver Disease: No Hx Renal Disease: No Hx Sickle Cell Disease: No Hx Arthritis: No Hx Seizures: No Hx Kidney Stones: No Hx Asthma: Yes Hx COPD: No Hx Tuberculosis: No Hx Dementia: No Hx HIV: No Additional medical history: sinus problems. Prior Intubations x3. Obesity. hypothyroid - Surgical History Past Surgical History?: Yes Hx Coronary Stent: No Hx Open Heart Surgery: No Hx Pacemaker: No Hx Internal Defibrillator: No Hx Cholecystectomy: No Hx Appendectomy: No Hx Breast Surgery: No Additional Surgical History: x4, umbilical hernia repair, sinus surgeries, D&C. thyroid removal. tubligation - Social History Smoking Status: Never Smoker Substance Use Type: None - Medications Home Medications: Home Medications Medication Instructions Recorded Confirmed Last Taken Type AtorvaSTATin [Lipitor] 40 mg PO QHS 01/12/20 04/23/20 Unknown History Levothyroxine [Synthroid] 25 mcg PO QDAY 02/24/20 04/23/20 Unknown History Ascorbic Acid [Vitamin C] 04/23/20 Unknown History Cinnamon 04/23/20 Unknown History Diphenoxylate/Atropine [Lomotil] 1 tab PO Q6H PRN #14 tablet 04/23/20 Unknown Rx Ergocalciferol(Vitamin D2)(Nf) 04/23/20 Unknown History [Vitamin D (Nf)] Vitamin E (Dl,Tocopheryl Acet) 04/23/20 Unknown History [Vitamin E] metroNIDAZOLE [Flagyl TAB] 500 mg PO Q12H #14 tablet 04/23/20 Unknown Rx Prednisone [predniSONE 10 mg 10 mg PO .TAPER #21 tab.ds.pk 05/16/20 Unknown Rx (6-Day Pack, 21 Tabs)] Prednisone [predniSONE 10 mg 10 mg PO .TAPER #1 tab.ds.pk 06/14/20 Unknown Rx (6-Day Pack, 21 Tabs)] Albuterol Sulfate [Proair 1 - 2 puff IH Q4HR PRN #1 06/24/20 Unknown Rx Digihaler] aer.pw.bas Sulfamethoxazole/Trimethoprim 1 each PO BID #20 tablet 06/24/20 Unknown Rx [Bactrim DS TAB] Albuterol Sulfate [Albuterol 0.63% 0.63 mg IH Q4HR PRN #2 ml 08/23/20 Unknown Rx NEBS] Albuterol Sulfate [Proair 90 mcg IH Q4HR PRN #2 aer.pow.ba 08/23/20 Unknown Rx Respiclick] Famotidine [Pepcid] 20 mg PO BID #20 tablet 10/08/20 Unknown Rx Ondansetron [Zofran Odt] 4 mg PO Q8HR PRN #15 tab.rapdis 10/08/20 Unknown Rx predniSONE [Deltasone] 40 mg PO QDAY 4 Days tab 10/08/20 Unknown Rx Ipratropium [Atrovent] 0.5 mg IH Q4HWA #1 box 10/24/20 Unknown Rx Prednisone [predniSONE 10 mg 10 mg PO .TAPER #1 tab.ds.pk 10/24/20 Unknown Rx (6-Day Pack, 21 Tabs)] levoFLOXacin [Levaquin TAB] 500 mg PO QDAY #7 tablet 10/24/20 Unknown Rx ALBUTEROL NEB's [Proventil 0.083% 3 ml IH Q6H PRN 30 Days #75 ml 01/11/21 Unknown Rx NEBS] Fluticasone/Salmeterol [Advair 1 puff IH BID #1 01/11/21 Unknown Rx Diskus 500-50 mcg] Ipratropium 0.06% [Atrovent] 2 spray NS Q8HR #1 bottle 01/11/21 Unknown Rx Ipratropium [Atrovent NEB] 0.5 mg IH Q4HR #2 ml 01/11/21 Unknown Rx levoFLOXacin [Levaquin TAB] 500 mg PO Q24HR #7 tablet 01/11/21 Unknown Rx predniSONE [Deltasone] 20 mg PO QDAY #20 tab 01/11/21 Unknown Rx Ipratropium (Nf) [Atrovent] 2 puff IH Q6HR PRN #1 inha 09/19/21 Unknown Rx Prednisone [predniSONE 10 mg 10 mg PO .TAPER #1 tab.ds.pk 09/19/21 Unknown Rx (6-Day Pack, 21 Tabs)] Albuterol Sulfate [Albuterol 0.63% 0.63 mg IH Q4HR PRN #2 ml 10/20/21 Unknown Rx NEBS] Albuterol Sulfate [Proair 90 mcg IH Q4HR PRN #2 aer.pow.ba 10/20/21 Unknown Rx Respiclick] Ipratropium (Nf) [Atrovent] 2 puff IH Q6HR PRN #1 inha 10/20/21 Unknown Rx Ipratropium [Atrovent NEB] 0.5 mg IH Q4HR #2 ml 10/20/21 Unknown Rx ALBUTEROL NEB's [Proventil 0.083% 2.5 mg IH TID PRN #1 box 11/17/21 Unknown Rx NEBS] predniSONE [Deltasone] 40 mg PO QDAY 5 Days tab 11/17/21 Unknown Rx predniSONE [Deltasone] 50 mg PO QDAY #5 tab 11/29/21 Unknown Rx ALBUTEROL NEB's [Proventil 0.083% 2.5 mg IH TID PRN #30 neb 12/16/21 Unknown Rx NEBS] Montelukast [Singulair] 10 mg PO QPM #14 tablet 12/16/21 Unknown Rx Ipratropium [place] 15 ml NS BID PRN 10 Days #1 spray 02/15/22 Unknown Rx Levocetirizine Dihydrochloride 5 mg PO DAILY 30 Days #30 tab 02/15/22 Unknown Rx [Xyzal] predniSONE [Deltasone] 50 mg PO QDAY 5 Days #5 tab 02/15/22 Unknown Rx Ipratropium (Nf) [Atrovent HFA 2 puff IH Q6HR PRN #1 inha 02/27/22 Unknown Rx 17MCG/PUFF] predniSONE [Deltasone] 40 mg PO DAILY 5 Days #10 02/27/22 Unknown Rx ALBUTEROL NEB's [Proventil 0.083% 3 ml IH Q6H PRN #75 ml 03/12/22 Unknown Rx NEBS] Benzonatate [Tessalon Perles] 100 mg PO Q8HR #30 capsule 03/12/22 Unknown Rx Cetirizine HCl/Pseudoephedrine 1 each PO BID PRN #60 tab 03/12/22 Unknown Rx [Zyrtec-D Tablet] Ipratropium [Atrovent NEB] 0.5 mg IH Q8HRT #50 ml 03/12/22 Unknown Rx Montelukast [Singulair] 10 mg PO QPM #30 tablet 03/12/22 Unknown Rx Prednisone [predniSONE 10 mg 10 mg PO .TAPER #21 tab 03/12/22 Unknown Rx (6-Day Pack, 21 Tabs)] predniSONE [Deltasone] 40 mg PO DAILY 10 Days #20 tablet 03/12/22 Unknown Rx Ipratropium/Albuterol Sulfate 1 ampul IH Q6HR #30 ampul.neb 03/23/22 Unknown Rx [DUONEB *Not for PRN Use*] Albuterol Mdi (or & Nicu Only) 2 puff IH QID PRN #8.5 gram 04/11/22 Unknown Rx [ProAir HFA Inhaler] Ipratropium/Albuter (Nf) 2 puff IH QID #1 each 04/11/22 Unknown Rx [Combivent Inhaler] Magnesium Oxide [Mag-Ox] 400 mg PO QDAY #3 tab 04/11/22 Unknown Rx dexAMETHasone [Decadron] 4 mg PO BID 5 Days #10 tablet 04/11/22 Unknown Rx traMADoL [Ultram] 50 mg PO Q8HR PRN #9 tablet 04/11/22 Unknown Rx Acetaminophen [Tylenol] 500 mg PO Q6HR PRN #40 tablet 04/14/22 Unknown Rx Brompheniramine/Pseudoephed/Dm 5 ml PO Q8H PRN #125 ml 04/14/22 Unknown Rx [Bromfed Dm Cough Syrup] Cetirizine HCl [Zyrtec 10mg tab] 10 mg PO DAILY #60 tab 04/14/22 Unknown Rx levoFLOXacin [Levaquin] 750 mg PO QDAY #7 tablet 04/14/22 Unknown Rx predniSONE [Deltasone] 60 mg PO DAILY #15 tab 04/14/22 Unknown Rx ED Physical Exam - General Limitations: No Limitations General appearance: alert, in no apparent distress - Head Head exam: Present: atraumatic, normocephalic, normal inspection - Eye Eye exam: Present: normal appearance, PERRL, EOMI Pupils: Present: normal accommodation - ENT ENT exam: Present: normal orophraynx, mucous membranes moist, TM's normal bilaterally, normal external ear exam, other (Grossly congested nasal passages; palpable frontal and maxillary sinus tenderness) - Neck Neck exam: Present: normal inspection, full ROM. Absent: tenderness - Respiratory Respiratory exam: Present: wheezes (Mildly diffuse coarse wheezes throughout). Absent: respiratory distress, rales, rhonchi, stridor, chest wall tenderness, accessory muscle use, decreased breath sounds - Cardiovascular Cardiovascular Exam: Present: normal rhythm, tachycardia, normal heart sounds. Absent: systolic murmur, diastolic murmur, rubs, gallop - GI/Abdominal GI/Abdominal exam: Present: soft, normal bowel sounds. Absent: tenderness, guarding, rebound, hyperactive bowel sounds, hypoactive bowel sounds - Extremities Exam Extremities exam: Present: normal inspection, full ROM, normal capillary refill. Absent: tenderness - Back Exam Back exam: Present: normal inspection, full ROM. Absent: tenderness, CVA tenderness (R), CVA tenderness (L), muscle spasm, paraspinal tenderness, vertebral tenderness - Neurological Exam Neurological exam: Present: alert, oriented X3, CN II-XII intact, normal gait, reflexes normal - Psychiatric Psychiatric exam: Present: normal affect, normal mood - Skin Skin exam: Present: warm, dry, intact, normal color. Absent: rash ED Course Vital Signs 04/13/22 04/13/22 21:19 23:38 Temperature 101.4 F H 99.8 F H Pulse Rate 118 H 103 H Respiratory 18 20 Rate Blood Pressure 123/60 104/53 O2 Sat by Pulse 96 94 Oximetry ED Medical Decision Making - Radiology Data Radiology results: report reviewed, image reviewed [facility] [address] [place] [address] XRay Report Signed Patient: DAHIANA GERMAN MR#: [id number] : 1970 Acct:[id number] Age/Sex: 51 / F ADM Date: 04/13/22 Loc: ED Attending Dr: Ordering Physician: LIDIA FINNEGAN Date of Service: 04/13/22 Procedure(s): XR chest 1V ap Accession Number(s): [id number] cc: LIDIA FINNEGAN Fluoro Time In Minutes: CHEST 1 VIEW 04/13/2022 10:55 PM INDICATION / CLINICAL INFORMATION: cough, asthma. COMPARISON: 03/30/2022. FINDINGS: SUPPORT DEVICES: None. HEART / MEDIASTINUM: No significant abnormality. LUNGS / PLEURA: No significant pulmonary or pleural abnormality. No pneumothor ax. ADDITIONAL FINDINGS: No significant additional findings. IMPRESSION: No acute abnormality. Signer Name: Robbi Duran MD Signed: 04/14/2022 12:11 AM Workstation Name: [id number] Transcribed By: ES Dictated By: Robbi Duran MD Electronically Authenticated By: Robbi Duran MD Signed Date/Time: 04/14/2210 DD/ TD/TT: Print - Medical Decision Making This is a 51-year-old -B[place] female with history of GERD, asthma and chronic seasonal allergies who presents to the ED with complaint of acute onset persistent nasal and sinus congestion, persistent cough with yellowish-green phlegm for the last 3 days. Patient states that she has also been feeling generalized weakness, diffuse body aches and pains, fever and chills for the last 12 hours. Patient states that she had albuterol inhaler treatment prior to arrival in the ED. In the ED, patient is alert and oriented x3 and is not in any distress. Patient is tachycardic and febrile in triage with oxygen saturation of 96% on room air. Patient was treated in the ED with Tylenol for fever and pain, patient also received Levaquin 500 mg p.o. x1, also received albuterol and ipratropium nebulizer treatments in the ED as well as Solu-Medrol 125 mg intramuscular injection. Chest x-ray showed no acute cardiopulmonary abnormalities or pneumonitis. On reevaluation, patient's fever and tachycardia resolved, patient felt better, wheezing resolved the patient was discharged home on medications and advised to follow-up with her primary care physician in 7 to 10 days for reevaluation. Patient was advised return to the ED immediately if symptoms get worse. - Differential Diagnosis Sinusitis; pneumonia; bronchitis; asthma; URI; influenza; COVID-19 Critical care attestation.: If time is entered above; I have spent that time in minutes in the direct care of this critically ill patient, excluding procedure time. ED Disposition Clinical Impression: Shortness of breath, Acute upper respiratory infection, Acute recurrent pansinusitis, Acute bronchitis with asthma with acute exacerbation, Fever and chills Disposition: 01 HOME / SELF CARE / HOMELESS Is pt being admited?: No Does the pt Need Aspirin: No Condition: Stable Instructions: Shortness of Breath, Adult, [id number], Sinusitis, Adult, Wyaf-[id number]-Omvk, Upper Respiratory Infection, Adult, [id number], Cough, Adult, Azsz-il-Etzh, Fever, Adult, [id number]-al-[id number], Asthma, Adult, [id number], Acute Bronchitis, Adult, Jwuh-qa-Thin Additional Instructions: Chest x-ray showed no acute cardiopulmonary abnormalities or pneumonitis. T herefore take medication with food, drink plenty of fluids, follow-up with your primary care physician in 7 to 10 days for reevaluation. Return to the ED immediately if symptoms get worse. Prescriptions: Acetaminophen [Tylenol] 500 mg PO Q6HR PRN #40 tablet PRN Reason: Pain and fever Brompheniramine/Pseudoephed/Dm [Bromfed Dm Cough Syrup] 5 ml PO Q8H PRN #125 ml PRN Reason: Cough predniSONE [Deltasone] 60 mg PO DAILY #15 tab levoFLOXacin [Levaquin] 750 mg PO QDAY #7 tablet Cetirizine HCl [Zyrtec 10mg tab] 10 mg PO DAILY #60 tab Referrals: [facility] [Provider Group] - 7-10 days Time of Disposition: 00:49 Print Language: YAKUT
== END 2022-04-14 02:14 | disposition home or self-care (01) ==
LOC: ED 21:02
DX: R06.02 Shortness of breath (principal); J06.9 Acute upper respiratory infection, unspecified; J01.41 Acute recurrent pansinusitis; J20.9 Acute bronchitis, unspecified; J45.901 Unspecified asthma with (acute) exacerbation; R50.9 Fever, unspecified; K21.9 Gastro-esophageal reflux disease without esophagitis; Z98.890 Other specified postprocedural states; Z88.0 Allergy status to penicillin; Z88.6 Allergy status to analgesic agent; Z91.09 Other allergy status, other than to drugs and biological substances; Z79.899 Other long term (current) drug therapy
CPT/HCPCS: 71045; 94640; 99283

== ENCOUNTER 2022-04-16 22:34 | Emergency (ER) | payer MEDICARE ==
--- NOTE | 2022-04-17 08:35 | XRay Report ---
CHEST 2 VIEWS INDICATION / CLINICAL INFORMATION: cough. COMPARISON: 04/13/2022 FINDINGS: SUPPORT DEVICES: None. HEART / MEDIASTINUM: No significant abnormality. LUNGS / PLEURA: No significant pulmonary or pleural abnormality. No pneumothorax. ADDITIONAL FINDINGS: No significant additional findings. IMPRESSION: 1. No acute findings. Signer Name: Joao Wilson Jr, MD Signed: 04/17/2022 8:31 AM Workstation Name: [id number]
[2022-04-17 10:27] LABS: Basophils # (Auto) 0.1 K/mm3 (0.0-0.1); Basophils % (Auto) 0.8 % (0.0-1.8); Eosinophils # (Auto) 0.3 K/mm3 (0.0-0.4); Eosinophils % (Auto) 2.2 % (0.0-4.3); Hematocrit 39.3 % (30.3-42.9); Hemoglobin 12.7 gm/dl (10.1-14.3); Lymphocytes # (Auto) 1.6 K/mm3 (1.2-5.4); Lymphocytes % (Auto) 14.2 % (13.4-35.0); Mean Corpuscular HGB Conc 32 % (30-34); Mean Corpuscular Volume 83 fl (79-97); Monocytes # (Auto) 1.2 K/mm3 (0.0-0.8); Monocytes % (Auto) 10.2 % (0.0-7.3); Platelet Count 239 K/mm3 (140-440); Red Blood Count 4.75 M/mm3 (3.65-5.03); Red Cell Distribution Width 15.1 % (13.2-15.2)
[2022-04-17] MEDS ORDERED: ALBUTEROL 2.5 MG/3 ML NEBU IH ONE (15:13)
[2022-04-17] MEDS ORDERED: IPRATROPIUM 0.02% NEBU 2.5 ML IH ONE (15:14)
[2022-04-17] MEDS ORDERED: methylPREDNISolone Sod Succinate 125 MG/2 ML INJ IV ONE (16:18)
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
[2022-04-17 18:13] VITALS: BP 106/77
--- NOTE | 2022-04-19 09:12 | Electrocardiograph Report ---
[facility] Test Date: 2022-04-17 Test Time: 17:38:34 Pat Name: DAHIANA GERMAN Department: Room: Gender: F Mysql Dba: TECH : 1970 Requested By: DREA MCCOY Order Number: [id number] Reading MD: Darwin Villatoro Measurements Intervals [place] Rate: 98 P: 43 MO: 145 QRS: 25 QRSD: 81 T: 28 QT: 324 QTc: 414 Interpretive Statements Sinus rhythm nonspecific st-t Compared to ECG 03/30/2022 03:49:37 Electronically Signed On 04-19-2022 9:12:34 EDT by Darwin Villatoro
== END 2022-04-17 18:45 | disposition home or self-care (01) ==
LOC: ED 22:34
DX: J45.901 Unspecified asthma with (acute) exacerbation (principal); K21.9 Gastro-esophageal reflux disease without esophagitis; Z59.00 Homelessness unspecified
CPT/HCPCS: 36415; 71046; 85025; 93005; 94640; 96374; 99284; J2930; 94644

== ENCOUNTER 2022-04-22 02:07 | Emergency (ER) | payer MEDICARE ==
[2022-04-22] MEDS ORDERED: MAGNESIUM SULFATE 2 GM/50 ML BAG IV ONE (02:42)
[2022-04-22] MEDS ORDERED: SODIUM CHLORIDE 0.9% 500 ML 500 ML IV ONE (02:42)
[2022-04-22] MEDS ORDERED: ALBUTEROL 2.5 MG/3 ML NEBU IH ONE (02:42)
[2022-04-22] MEDS ORDERED: methylPREDNISolone Sod Succinate 125 MG/2 ML INJ IV ONE (02:42)
[2022-04-22] MEDS ORDERED: IPRATROPIUM 0.02% NEBU 2.5 ML IH ONE (02:42)
[2022-04-22] MEDS ORDERED: diphenhydrAMINE 50 MG/ML VIAL IV STA (02:49)
--- NOTE | 2022-04-22 02:58 | Emergency Department Report ---
ED Asthma HPI - General Chief Complaint: Adult Asthma Stated Complaint: DIZZINESS,ASTHMA,SORE THROAT Time Seen by Provider: 04/22/22 02:38 Source: patient Mode of arrival: Ambulatory Limitations: No Limitations - History of Present Illness MD Complaint: shortness of breath, wheezing -: Gradual Asthma History: childhood onset, history of prior ED visit, followed by specialist Severity: mild, moderate Context: other (Patient reports unknown cause of his asthma exacerbation to try to mitigate some symptoms with taking medications at home) Associated Symptoms: denies: fever - Related Data Home Medications Medication Instructions Recorded Confirmed Last Taken AtorvaSTATin [Lipitor] 40 mg PO QHS 01/12/20 04/23/20 Unknown Levothyroxine [Synthroid] 25 mcg PO QDAY 02/24/20 04/23/20 Unknown Ascorbic Acid [Vitamin C] 04/23/20 Unknown Cinnamon 04/23/20 Unknown Ergocalciferol(Vitamin D2)(Nf) 04/23/20 Unknown [Vitamin D (Nf)] Vitamin E (Dl,Tocopheryl Acet) 04/23/20 Unknown [Vitamin E] Previous Rx's Medication Instructions Recorded Last Taken Type Diphenoxylate/Atropine [Lomotil] 1 tab PO Q6H PRN #14 tablet 04/23/20 Unknown Rx metroNIDAZOLE [Flagyl TAB] 500 mg PO Q12H #14 tablet 04/23/20 Unknown Rx Prednisone [predniSONE 10 mg 10 mg PO .TAPER #21 tab.ds.pk 05/16/20 Unknown Rx (6-Day Pack, 21 Tabs)] Prednisone [predniSONE 10 mg 10 mg PO .TAPER #1 tab.ds.pk 06/14/20 Unknown Rx (6-Day Pack, 21 Tabs)] Albuterol Sulfate [Proair 1 - 2 puff IH Q4HR PRN #1 06/24/20 Unknown Rx Digihaler] aer.pw.bas Sulfamethoxazole/Trimethoprim 1 each PO BID #20 tablet 06/24/20 Unknown Rx [Bactrim DS TAB] Albuterol Sulfate [Albuterol 0.63% 0.63 mg IH Q4HR PRN #2 ml 08/23/20 Unknown Rx NEBS] Albuterol Sulfate [Proair 90 mcg IH Q4HR PRN #2 aer.pow.ba 08/23/20 Unknown Rx Respiclick] Famotidine [Pepcid] 20 mg PO BID #20 tablet 10/08/20 Unknown Rx Ondansetron [Zofran Odt] 4 mg PO Q8HR PRN #15 tab.rapdis 10/08/20 Unknown Rx predniSONE [Deltasone] 40 mg PO QDAY 4 Days tab 10/08/20 Unknown Rx Ipratropium [Atrovent] 0.5 mg IH Q4HWA #1 box 10/24/20 Unknown Rx Prednisone [predniSONE 10 mg 10 mg PO .TAPER #1 tab.ds.pk 10/24/20 Unknown Rx (6-Day Pack, 21 Tabs)] levoFLOXacin [Levaquin TAB] 500 mg PO QDAY #7 tablet 10/24/20 Unknown Rx ALBUTEROL NEB's [Proventil 0.083% 3 ml IH Q6H PRN 30 Days #75 ml 01/11/21 Unknown Rx NEBS] Fluticasone/Salmeterol [Advair 1 puff IH BID #1 01/11/21 Unknown Rx Diskus 500-50 mcg] Ipratropium 0.06% [Atrovent] 2 spray NS Q8HR #1 bottle 01/11/21 Unknown Rx Ipratropium [Atrovent NEB] 0.5 mg IH Q4HR #2 ml 01/11/21 Unknown Rx levoFLOXacin [Levaquin TAB] 500 mg PO Q24HR #7 tablet 01/11/21 Unknown Rx predniSONE [Deltasone] 20 mg PO QDAY #20 tab 01/11/21 Unknown Rx Ipratropium (Nf) [Atrovent] 2 puff IH Q6HR PRN #1 inha 09/19/21 Unknown Rx Prednisone [predniSONE 10 mg 10 mg PO .TAPER #1 tab.ds.pk 09/19/21 Unknown Rx (6-Day Pack, 21 Tabs)] Albuterol Sulfate [Albuterol 0.63% 0.63 mg IH Q4HR PRN #2 ml 10/20/21 Unknown Rx NEBS] Albuterol Sulfate [Proair 90 mcg IH Q4HR PRN #2 aer.pow.ba 10/20/21 Unknown Rx Respiclick] Ipratropium (Nf) [Atrovent] 2 puff IH Q6HR PRN #1 inha 10/20/21 Unknown Rx Ipratropium [Atrovent NEB] 0.5 mg IH Q4HR #2 ml 10/20/21 Unknown Rx ALBUTEROL NEB's [Proventil 0.083% 2.5 mg IH TID PRN #1 box 11/17/21 Unknown Rx NEBS] predniSONE [Deltasone] 40 mg PO QDAY 5 Days tab 11/17/21 Unknown Rx predniSONE [Deltasone] 50 mg PO QDAY #5 tab 11/29/21 Unknown Rx ALBUTEROL NEB's [Proventil 0.083% 2.5 mg IH TID PRN #30 neb 12/16/21 Unknown Rx NEBS] Montelukast [Singulair] 10 mg PO QPM #14 tablet 12/16/21 Unknown Rx Ipratropium [place] 15 ml NS BID PRN 10 Days #1 spray 02/15/22 Unknown Rx Levocetirizine Dihydrochloride 5 mg PO DAILY 30 Days #30 tab 02/15/22 Unknown Rx [Xyzal] predniSONE [Deltasone] 50 mg PO QDAY 5 Days #5 tab 02/15/22 Unknown Rx Ipratropium (Nf) [Atrovent HFA 2 puff IH Q6HR PRN #1 inha 02/27/22 Unknown Rx 17MCG/PUFF] predniSONE [Deltasone] 40 mg PO DAILY 5 Days #10 02/27/22 Unknown Rx ALBUTEROL NEB's [Proventil 0.083% 3 ml IH Q6H PRN #75 ml 03/12/22 Unknown Rx NEBS] Benzonatate [Tessalon Perles] 100 mg PO Q8HR #30 capsule 03/12/22 Unknown Rx Cetirizine HCl/Pseudoephedrine 1 each PO BID PRN #60 tab 03/12/22 Unknown Rx [Zyrtec-D Tablet] Ipratropium [Atrovent NEB] 0.5 mg IH Q8HRT #50 ml 03/12/22 Unknown Rx Montelukast [Singulair] 10 mg PO QPM #30 tablet 03/12/22 Unknown Rx Prednisone [predniSONE 10 mg 10 mg PO .TAPER #21 tab 03/12/22 Unknown Rx (6-Day Pack, 21 Tabs)] predniSONE [Deltasone] 40 mg PO DAILY 10 Days #20 tablet 03/12/22 Unknown Rx Ipratropium/Albuterol Sulfate 1 ampul IH Q6HR #30 ampul.neb 03/23/22 Unknown Rx [DUONEB *Not for PRN Use*] Albuterol Mdi (or & Nicu Only) 2 puff IH QID PRN #8.5 gram 04/11/22 Unknown Rx [ProAir HFA Inhaler] Ipratropium/Albuter (Nf) 2 puff IH QID #1 each 04/11/22 Unknown Rx [Combivent Inhaler] Magnesium Oxide [Mag-Ox] 400 mg PO QDAY #3 tab 04/11/22 Unknown Rx dexAMETHasone [Decadron] 4 mg PO BID 5 Days #10 tablet 04/11/22 Unknown Rx traMADoL [Ultram] 50 mg PO Q8HR PRN #9 tablet 04/11/22 Unknown Rx Acetaminophen [Tylenol] 500 mg PO Q6HR PRN #40 tablet 04/14/22 Unknown Rx Brompheniramine/Pseudoephed/Dm 5 ml PO Q8H PRN #125 ml 04/14/22 Unknown Rx [Bromfed Dm Cough Syrup] Cetirizine HCl [Zyrtec 10mg tab] 10 mg PO DAILY #60 tab 04/14/22 Unknown Rx levoFLOXacin [Levaquin] 750 mg PO QDAY #7 tablet 04/14/22 Unknown Rx predniSONE [Deltasone] 60 mg PO DAILY #15 tab 04/14/22 Unknown Rx Albuterol Mdi (or & Nicu Only) 2 puff IH QID PRN #8.5 gram 04/17/22 Unknown Rx [ProAir HFA Inhaler] Famotidine [Pepcid] 20 mg PO BID #30 tablet 04/17/22 Unknown Rx Prednisone [predniSONE 10 mg 10 mg PO .TAPER #1 04/17/22 Unknown Rx (6-Day Pack, 21 Tabs)] predniSONE [Deltasone] 50 mg PO QDAY #5 tab 04/22/22 Unknown Rx Allergies Allergy/AdvReac Type Severity Reaction Status Date / Time aspirin Allergy Anaphylaxis Verified 04/10/22 23:13 azithromycin [From Zithromax] Allergy Anaphylaxis Verified 04/10/22 23:13 doxycycline Allergy Rash Verified 04/10/22 23:13 ketorolac tromethamine Allergy Anaphylaxis Verified 04/10/22 23:13 [From Toradol] Latex, Natural Rubber Allergy Angioedema Verified 04/10/22 23:13 morphine Allergy Shortness Verified 04/10/22 23:13 of Breath NSAIDS (Non-Steroidal Allergy Anaphylaxis Verified 04/10/22 23:13 Anti-Inflamma Penicillins Allergy Hives Verified 04/10/22 23:13 ED Review of Systems ROS: Stated complaint: DIZZINESS,ASTHMA,SORE THROAT Other details as noted in HPI Comment: All other systems reviewed and negative ED Past Medical Hx - Past Medical History Previous Medical History?: Yes Hx GERD: Yes Hx Asthma: Yes Additional medical history: sinus problems. Prior Intubations x3. Obesity. hypothyroid - Surgical History Past Surgical History?: Yes Additional Surgical History: x4, umbilical hernia repair, sinus surgeries, D&C. thyroid removal. tubligation - Social History Smoking Status: Never Smoker Substance Use Type: None - Medications Home Medications: Home Medications Medication Instructions Recorded Confirmed Last Taken Type AtorvaSTATin [Lipitor] 40 mg PO QHS 01/12/20 04/23/20 Unknown History Levothyroxine [Synthroid] 25 mcg PO QDAY 02/24/20 04/23/20 Unknown History Ascorbic Acid [Vitamin C] 04/23/20 Unknown History Cinnamon 04/23/20 Unknown History Diphenoxylate/Atropine [Lomotil] 1 tab PO Q6H PRN #14 tablet 04/23/20 Unknown Rx Ergocalciferol(Vitamin D2)(Nf) 04/23/20 Unknown History [Vitamin D (Nf)] Vitamin E (Dl,Tocopheryl Acet) 04/23/20 Unknown History [Vitamin E] metroNIDAZOLE [Flagyl TAB] 500 mg PO Q12H #14 tablet 04/23/20 Unknown Rx Prednisone [predniSONE 10 mg 10 mg PO .TAPER #21 tab.ds.pk 05/16/20 Unknown Rx (6-Day Pack, 21 Tabs)] Prednisone [predniSONE 10 mg 10 mg PO .TAPER #1 tab.ds.pk 06/14/20 Unknown Rx (6-Day Pack, 21 Tabs)] Albuterol Sulfate [Proair 1 - 2 puff IH Q4HR PRN #1 06/24/20 Unknown Rx Digihaler] aer.pw.bas Sulfamethoxazole/Trimethoprim 1 each PO BID #20 tablet 06/24/20 Unknown Rx [Bactrim DS TAB] Albuterol Sulfate [Albuterol 0.63% 0.63 mg IH Q4HR PRN #2 ml 08/23/20 Unknown Rx NEBS] Albuterol Sulfate [Proair 90 mcg IH Q4HR PRN #2 aer.pow.ba 08/23/20 Unknown Rx Respiclick] Famotidine [Pepcid] 20 mg PO BID #20 tablet 10/08/20 Unknown Rx Ondansetron [Zofran Odt] 4 mg PO Q8HR PRN #15 tab.rapdis 10/08/20 Unknown Rx predniSONE [Deltasone] 40 mg PO QDAY 4 Days tab 10/08/20 Unknown Rx Ipratropium [Atrovent] 0.5 mg IH Q4HWA #1 box 10/24/20 Unknown Rx Prednisone [predniSONE 10 mg 10 mg PO .TAPER #1 tab.ds.pk 10/24/20 Unknown Rx (6-Day Pack, 21 Tabs)] levoFLOXacin [Levaquin TAB] 500 mg PO QDAY #7 tablet 10/24/20 Unknown Rx ALBUTEROL NEB's [Proventil 0.083% 3 ml IH Q6H PRN 30 Days #75 ml 01/11/21 Unknown Rx NEBS] Fluticasone/Salmeterol [Advair 1 puff IH BID #1 01/11/21 Unknown Rx Diskus 500-50 mcg] Ipratropium 0.06% [Atrovent] 2 spray NS Q8HR #1 bottle 01/11/21 Unknown Rx Ipratropium [Atrovent NEB] 0.5 mg IH Q4HR #2 ml 01/11/21 Unknown Rx levoFLOXacin [Levaquin TAB] 500 mg PO Q24HR #7 tablet 01/11/21 Unknown Rx predniSONE [Deltasone] 20 mg PO QDAY #20 tab 01/11/21 Unknown Rx Ipratropium (Nf) [Atrovent] 2 puff IH Q6HR PRN #1 inha 09/19/21 Unknown Rx Prednisone [predniSONE 10 mg 10 mg PO .TAPER #1 tab.ds.pk 09/19/21 Unknown Rx (6-Day Pack, 21 Tabs)] Albuterol Sulfate [Albuterol 0.63% 0.63 mg IH Q4HR PRN #2 ml 10/20/21 Unknown Rx NEBS] Albuterol Sulfate [Proair 90 mcg IH Q4HR PRN #2 aer.pow.ba 10/20/21 Unknown Rx Respiclick] Ipratropium (Nf) [Atrovent] 2 puff IH Q6HR PRN #1 inha 10/20/21 Unknown Rx Ipratropium [Atrovent NEB] 0.5 mg IH Q4HR #2 ml 10/20/21 Unknown Rx ALBUTEROL NEB's [Proventil 0.083% 2.5 mg IH TID PRN #1 box 11/17/21 Unknown Rx NEBS] predniSONE [Deltasone] 40 mg PO QDAY 5 Days tab 11/17/21 Unknown Rx predniSONE [Deltasone] 50 mg PO QDAY #5 tab 11/29/21 Unknown Rx ALBUTEROL NEB's [Proventil 0.083% 2.5 mg IH TID PRN #30 neb 12/16/21 Unknown Rx NEBS] Montelukast [Singulair] 10 mg PO QPM #14 tablet 12/16/21 Unknown Rx Ipratropium [place] 15 ml NS BID PRN 10 Days #1 spray 02/15/22 Unknown Rx Levocetirizine Dihydrochloride 5 mg PO DAILY 30 Days #30 tab 02/15/22 Unknown Rx [Xyzal] predniSONE [Deltasone] 50 mg PO QDAY 5 Days #5 tab 02/15/22 Unknown Rx Ipratropium (Nf) [Atrovent HFA 2 puff IH Q6HR PRN #1 inha 02/27/22 Unknown Rx 17MCG/PUFF] predniSONE [Deltasone] 40 mg PO DAILY 5 Days #10 02/27/22 Unknown Rx ALBUTEROL NEB's [Proventil 0.083% 3 ml IH Q6H PRN #75 ml 03/12/22 Unknown Rx NEBS] Benzonatate [Tessalon Perles] 100 mg PO Q8HR #30 capsule 03/12/22 Unknown Rx Cetirizine HCl/Pseudoephedrine 1 each PO BID PRN #60 tab 03/12/22 Unknown Rx [Zyrtec-D Tablet] Ipratropium [Atrovent NEB] 0.5 mg IH Q8HRT #50 ml 03/12/22 Unknown Rx Montelukast [Singulair] 10 mg PO QPM #30 tablet 03/12/22 Unknown Rx Prednisone [predniSONE 10 mg 10 mg PO .TAPER #21 tab 03/12/22 Unknown Rx (6-Day Pack, 21 Tabs)] predniSONE [Deltasone] 40 mg PO DAILY 10 Days #20 tablet 03/12/22 Unknown Rx Ipratropium/Albuterol Sulfate 1 ampul IH Q6HR #30 ampul.neb 03/23/22 Unknown Rx [DUONEB *Not for PRN Use*] Albuterol Mdi (or & Nicu Only) 2 puff IH QID PRN #8.5 gram 04/11/22 Unknown Rx [ProAir HFA Inhaler] Ipratropium/Albuter (Nf) 2 puff IH QID #1 each 04/11/22 Unknown Rx [Combivent Inhaler] Magnesium Oxide [Mag-Ox] 400 mg PO QDAY #3 tab 04/11/22 Unknown Rx dexAMETHasone [Decadron] 4 mg PO BID 5 Days #10 tablet 04/11/22 Unknown Rx traMADoL [Ultram] 50 mg PO Q8HR PRN #9 tablet 04/11/22 Unknown Rx Acetaminophen [Tylenol] 500 mg PO Q6HR PRN #40 tablet 04/14/22 Unknown Rx Brompheniramine/Pseudoephed/Dm 5 ml PO Q8H PRN #125 ml 04/14/22 Unknown Rx [Bromfed Dm Cough Syrup] Cetirizine HCl [Zyrtec 10mg tab] 10 mg PO DAILY #60 tab 04/14/22 Unknown Rx levoFLOXacin [Levaquin] 750 mg PO QDAY #7 tablet 04/14/22 Unknown Rx predniSONE [Deltasone] 60 mg PO DAILY #15 tab 04/14/22 Unknown Rx Albuterol Mdi (or & Nicu Only) 2 puff IH QID PRN #8.5 gram 04/17/22 Unknown Rx [ProAir HFA Inhaler] Famotidine [Pepcid] 20 mg PO BID #30 tablet 04/17/22 Unknown Rx Prednisone [predniSONE 10 mg 10 mg PO .TAPER #1 04/17/22 Unknown Rx (6-Day Pack, 21 Tabs)] predniSONE [Deltasone] 50 mg PO QDAY #5 tab 04/22/22 Unknown Rx ED Physical Exam - General Limitations: No Limitations General appearance: alert, in no apparent distress - Head Head exam: Present: atraumatic, normocephalic - Eye Eye exam: Present: normal appearance - ENT ENT exam: Present: mucous membranes moist - Neck Neck exam: Present: normal inspection - Respiratory Respiratory exam: Present: wheezes, decreased breath sounds - Cardiovascular Cardiovascular Exam: Present: regular rate, normal rhythm. Absent: systolic murmur, diastolic murmur, rubs, gallop - GI/Abdominal GI/Abdominal exam: Present: soft, normal bowel sounds - Extremities Exam Extremities exam: Present: normal inspection - Back Exam Back exam: Present: normal inspection - Neurological Exam Neurological exam: Present: alert, oriented X3 - Psychiatric Psychiatric exam: Present: normal affect, normal mood - Skin Skin exam: Present: warm, dry, intact, normal color. Absent: rash ED Course Vital Signs 04/22/22 04/22/22 04/22/22 02:13 02:35 02:37 Temperature 98.8 F Pulse Rate 88 81 Pulse Rate [ Posterior Bilateral Throughout] Respiratory 22 26 H Rate Respiratory Rate [Posterior Bilateral Throughout] Blood Pressure 125/77 Blood Pressure 116/73 [Left] O2 Sat by Pulse 95 94 97 Oximetry 04/22/22 04/22/22 04/22/22 03:37 03:41 06:18 Temperature Pulse Rate 80 73 Pulse Rate [ 86 Posterior Bilateral Throughout] Respiratory 20 18 Rate Respiratory 16 Rate [Posterior Bilateral Throughout] Blood Pressure Blood Pressure 118/80 114/81 [Left] O2 Sat by Pulse Oximetry ED Medical Decision Making - Medical Decision Making No altered mental status, saddle respirations, belly breathing or other signs of impending ventilatory failure. No intubations or recent admissions to the hospital for asthma. Unlikely pneumonia, CHF, COPD, GERD Workup Review include a chest x-ray which was normal she also received steroids and albuterol Therapies: Prednisone 50 mg PO. Albuterol nebulizer Reassessment: Patient improved with albuterol and ipratropium in less than 3 hours. Disposition: Discharge home with return precautions. Advised to follow up with primary care physician within next 24-48 hours. Aside from this acute exacerbation patient has been well controlled on baseline home regimen. Rx short steroid course, albuterol, Singulair, Flovent Critical care attestation.: If time is entered above; I have spent that time in minutes in the direct care of this critically ill patient, excluding procedure time. ED Disposition Clinical Impression: Asthma Disposition: 01 HOME / SELF CARE / HOMELESS Is pt being admited?: No Does the pt Need Aspirin: No Condition: Stable Instructions: Asthma, Adult, Bronchospasm, Adult, Peak Flow Meter, Asthma (ED) Prescriptions: predniSONE [Deltasone] 50 mg PO QDAY #5 tab Referrals: [facility] [Provider Group] - 3-5 Days
--- NOTE | 2022-04-22 03:44 | XRay Report ---
CHEST 1 VIEW INDICATION / CLINICAL INFORMATION: Asthma. COMPARISON: Chest x-ray 04/17/2022 FINDINGS: SUPPORT DEVICES: None. HEART / MEDIASTINUM: Heart size is within normal limits. Mediastinal contour demonstrates no signific ant abnormality. LUNGS / PLEURA: No significant pulmonary abnormality. BONES: No significant osseous abnormality. ADDITIONAL FINDINGS: No significant additional findings. IMPRESSION: 1. No active cardiopulmonary disease. Signer Name: Efrain Pryor II, MD Signed: 04/22/2022 3:40 AM Workstation Name: [id number]
[2022-04-22 06:19] VITALS: BP 114/81
== END 2022-04-22 08:11 | disposition home or self-care (01) ==
LOC: ED 02:07
DX: J45.909 Unspecified asthma, uncomplicated (principal); K21.9 Gastro-esophageal reflux disease without esophagitis; E66.9 Obesity, unspecified; E03.9 Hypothyroidism, unspecified; Z98.890 Other specified postprocedural states; Z88.0 Allergy status to penicillin; Z88.1 Allergy status to other antibiotic agents; Z88.5 Allergy status to narcotic agent; Z88.6 Allergy status to analgesic agent; Z88.8 Allergy status to other drugs, medicaments and biological substances; Z91.040 Latex allergy status
CPT/HCPCS: 71045; 94640; 96365; 96375; 99283; J1200; J2930; J3475; J7040; 94644

== ENCOUNTER 2022-05-01 20:49 | Emergency (ER) | payer MEDICARE ==
[2022-05-01 23:21] VITALS: BP 124/78
[2022-05-02 01:07] LABS: Basophils # (Auto) 0.1 K/mm3 (0.0-0.1); Basophils % (Auto) 1.2 % (0.0-1.8); Eosinophils # (Auto) 0.5 K/mm3 (0.0-0.4); Eosinophils % (Auto) 4.9 % (0.0-4.3); Hematocrit 40.7 % (30.3-42.9); Hemoglobin 12.8 gm/dl (10.1-14.3); Lymphocytes % (Auto) 21.2 % (13.4-35.0); Mean Corpuscular HGB Conc 32 % (30-34); Mean Corpuscular Volume 84 fl (79-97); Monocytes # (Auto) 1.1 K/mm3 (0.0-0.8); Monocytes % (Auto) 11.8 % (0.0-7.3); Platelet Count 201 K/mm3 (140-440); Red Blood Count 4.86 M/mm3 (3.65-5.03); Red Cell Distribution Width 15.1 % (13.2-15.2)
[2022-05-02 01:27] LABS: BUN/Creatinine Ratio 12; Blood Urea Nitrogen 11 mg/dL (7-17); Calcium 9.2 mg/dL (8.4-10.2); Hemolysis Index 48
[2022-05-02] MEDS ORDERED: IPRATROPIUM/ALBUTEROL SULFATE 3 ML AMPUL.NEB IH ONE (05:15)
[2022-05-02] MEDS ORDERED: predniSONE 20 MG TAB PO ONE (07:56)
[2022-05-02] MEDS ORDERED: ALBUTEROL 2.5 MG/3 ML NEBU IH ONE (07:56)
--- NOTE | 2022-05-02 07:56 | Emergency Department Report ---
ED General Adult HPI - General Chief complaint: Abdominal Pain Stated complaint: TYROID ISSUE PUI?: No Time Seen by Provider: 05/02/22 07:52 Source: patient, family Mode of arrival: Ambulatory Limitations: No Limitations - History of Present Illness Initial comments: Pt is a 51 yo that comes to ER last night with sob - she has hx asthma. She also is requesting synthroid med refill Pt has been here all night at the time provider has seen her. At this time she is denying any pain or symptoms. -: Gradual Severity scale (0 -10): 0 Improves with: none Worsens with: none Treatments Prior to Arrival: none - Related Data Home Medications Medication Instructions Recorded Confirmed Last Taken AtorvaSTATin [Lipitor] 40 mg PO QHS 01/12/20 04/23/20 Unknown Ascorbic Acid [Vitamin C] 04/23/20 Unknown Cinnamon 04/23/20 Unknown Ergocalciferol(Vitamin D2)(Nf) 04/23/20 Unknown [Vitamin D (Nf)] Vitamin E (Dl,Tocopheryl Acet) 04/23/20 Unknown [Vitamin E] Previous Rx's Medication Instructions Recorded Last Taken Type Albuterol Sulfate [Proair 1 - 2 puff IH Q4HR PRN #1 06/24/20 Unknown Rx Digihaler] aer.pw.bas Albuterol Sulfate [Proair 90 mcg IH Q4HR PRN #2 aer.pow.ba 08/23/20 Unknown Rx Respiclick] Ondansetron [Zofran Odt] 4 mg PO Q8HR PRN #15 tab.rapdis 10/08/20 Unknown Rx ALBUTEROL NEB's [Proventil 0.083% 3 ml IH Q6H PRN 30 Days #75 ml 01/11/21 Unknown Rx NEBS] Albuterol Sulfate [Albuterol 0.63% 0.63 mg IH Q4HR PRN #2 ml 10/20/21 Unknown Rx NEBS] Albuterol Sulfate [Proair 90 mcg IH Q4HR PRN #2 aer.pow.ba 10/20/21 Unknown Rx Respiclick] ALBUTEROL NEB's [Proventil 0.083% 2.5 mg IH TID PRN #1 box 11/17/21 Unknown Rx NEBS] ALBUTEROL NEB's [Proventil 0.083% 2.5 mg IH TID PRN #30 neb 12/16/21 Unknown Rx NEBS] Montelukast [Singulair] 10 mg PO QPM #14 tablet 12/16/21 Unknown Rx Levocetirizine Dihydrochloride 5 mg PO DAILY 30 Days #30 tab 02/15/22 Unknown Rx [Xyzal] Ipratropium (Nf) [Atrovent HFA 2 puff IH Q6HR PRN #1 inha 02/27/22 Unknown Rx 17MCG/PUFF] ALBUTEROL NEB's [Proventil 0.083% 3 ml IH Q6H PRN #75 ml 03/12/22 Unknown Rx NEBS] Benzonatate [Tessalon Perles] 100 mg PO Q8HR #30 capsule 03/12/22 Unknown Rx Cetirizine HCl/Pseudoephedrine 1 each PO BID PRN #60 tab 03/12/22 Unknown Rx [Zyrtec-D Tablet] Montelukast [Singulair] 10 mg PO QPM #30 tablet 03/12/22 Unknown Rx Albuterol Mdi (or & Nicu Only) 2 puff IH QID PRN #8.5 gram 04/11/22 Unknown Rx [ProAir HFA Inhaler] Ipratropium/Albuter (Nf) 2 puff IH QID #1 each 04/11/22 Unknown Rx [Combivent Inhaler] Magnesium Oxide [Mag-Ox] 400 mg PO QDAY #3 tab 04/11/22 Unknown Rx traMADoL [Ultram] 50 mg PO Q8HR PRN #9 tablet 04/11/22 Unknown Rx Cetirizine HCl [Zyrtec 10mg tab] 10 mg PO DAILY #60 tab 04/14/22 Unknown Rx Albuterol Mdi (or & Nicu Only) 2 puff IH QID PRN #8.5 gram 04/17/22 Unknown Rx [ProAir HFA Inhaler] Famotidine [Pepcid] 20 mg PO BID #30 tablet 04/17/22 Unknown Rx ALBUTEROL NEB's [Proventil 0.083% 2.5 mg IH TID PRN #1 box 05/02/22 Unknown Rx NEBS] Albuterol Mdi (or & Nicu Only) 2 puff IH QID PRN #1 inhalation 05/02/22 Unknown Rx [ProAir HFA Inhaler] Cetirizine HCl [ZyrTEC] 10 mg PO DAILY #30 capsule 05/02/22 Unknown Rx Levothyroxine [Synthroid] 25 mcg PO QDAY #30 05/02/22 Unknown Rx predniSONE [Deltasone] 20 mg PO DAILY #5 tablet 05/02/22 Unknown Rx Allergies Allergy/AdvReac Type Severity Reaction Status Date / Time aspirin Allergy Anaphylaxis Verified 04/10/22 23:13 azithromycin [From Zithromax] Allergy Anaphylaxis Verified 04/10/22 23:13 doxycycline Allergy Rash Verified 04/10/22 23:13 ketorolac tromethamine Allergy Anaphylaxis Verified 04/10/22 23:13 [From Toradol] Latex, Natural Rubber Allergy Angioedema Verified 04/10/22 23:13 morphine Allergy Shortness Verified 04/10/22 23:13 of Breath NSAIDS (Non-Steroidal Allergy Anaphylaxis Verified 04/10/22 23:13 Anti-Inflamma Penicillins Allergy Hives Verified 04/10/22 23:13 ED Review of Systems ROS: Stated complaint: TYROID ISSUE Other details as noted in HPI Comment: All other systems reviewed and negative ED Past Medical Hx - Past Medical History Previous Medical History?: Yes Hx GERD: Yes Hx Asthma: Yes Additional medical history: sinus problems. Prior Intubations x3. Obesity. hypothyroid - Surgical History Past Surgical History?: Yes Additional Surgical History: x4, umbilical hernia repair, sinus surgeries, D&C. thyroid removal. tubligation - Family History Family history: no significant - Social History Smoking Status: Never Smoker Substance Use Type: None - Medications Home Medications: Home Medications Medication Instructions Recorded Confirmed Last Taken Type AtorvaSTATin [Lipitor] 40 mg PO QHS 01/12/20 04/23/20 Unknown History Ascorbic Acid [Vitamin C] 04/23/20 Unknown History Cinnamon 04/23/20 Unknown History Ergocalciferol(Vitamin D2)(Nf) 04/23/20 Unknown History [Vitamin D (Nf)] Vitamin E (Dl,Tocopheryl Acet) 04/23/20 Unknown History [Vitamin E] Albuterol Sulfate [Proair 1 - 2 puff IH Q4HR PRN #1 06/24/20 Unknown Rx Digihaler] aer.pw.bas Albuterol Sulfate [Proair 90 mcg IH Q4HR PRN #2 aer.pow.ba 08/23/20 Unknown Rx Respiclick] Ondansetron [Zofran Odt] 4 mg PO Q8HR PRN #15 tab.rapdis 10/08/20 Unknown Rx ALBUTEROL NEB's [Proventil 0.083% 3 ml IH Q6H PRN 30 Days #75 ml 01/11/21 Unknown Rx NEBS] Albuterol Sulfate [Albuterol 0.63% 0.63 mg IH Q4HR PRN #2 ml 10/20/21 Unknown Rx NEBS] Albuterol Sulfate [Proair 90 mcg IH Q4HR PRN #2 aer.pow.ba 10/20/21 Unknown Rx Respiclick] ALBUTEROL NEB's [Proventil 0.083% 2.5 mg IH TID PRN #1 box 11/17/21 Unknown Rx NEBS] ALBUTEROL NEB's [Proventil 0.083% 2.5 mg IH TID PRN #30 neb 12/16/21 Unknown Rx NEBS] Montelukast [Singulair] 10 mg PO QPM #14 tablet 12/16/21 Unknown Rx Levocetirizine Dihydrochloride 5 mg PO DAILY 30 Days #30 tab 02/15/22 Unknown Rx [Xyzal] Ipratropium (Nf) [Atrovent HFA 2 puff IH Q6HR PRN #1 inha 02/27/22 Unknown Rx 17MCG/PUFF] ALBUTEROL NEB's [Proventil 0.083% 3 ml IH Q6H PRN #75 ml 03/12/22 Unknown Rx NEBS] Benzonatate [Tessalon Perles] 100 mg PO Q8HR #30 capsule 03/12/22 Unknown Rx Cetirizine HCl/Pseudoephedrine 1 each PO BID PRN #60 tab 03/12/22 Unknown Rx [Zyrtec-D Tablet] Montelukast [Singulair] 10 mg PO QPM #30 tablet 03/12/22 Unknown Rx Albuterol Mdi (or & Nicu Only) 2 puff IH QID PRN #8.5 gram 04/11/22 Unknown Rx [ProAir HFA Inhaler] Ipratropium/Albuter (Nf) 2 puff IH QID #1 each 04/11/22 Unknown Rx [Combivent Inhaler] Magnesium Oxide [Mag-Ox] 400 mg PO QDAY #3 tab 04/11/22 Unknown Rx traMADoL [Ultram] 50 mg PO Q8HR PRN #9 tablet 04/11/22 Unknown Rx Cetirizine HCl [Zyrtec 10mg tab] 10 mg PO DAILY #60 tab 04/14/22 Unknown Rx Albuterol Mdi (or & Nicu Only) 2 puff IH QID PRN #8.5 gram 04/17/22 Unknown Rx [ProAir HFA Inhaler] Famotidine [Pepcid] 20 mg PO BID #30 tablet 04/17/22 Unknown Rx ALBUTEROL NEB's [Proventil 0.083% 2.5 mg IH TID PRN #1 box 05/02/22 Unknown Rx NEBS] Albuterol Mdi (or & Nicu Only) 2 puff IH QID PRN #1 inhalation 05/02/22 Unknown Rx [ProAir HFA Inhaler] Cetirizine HCl [ZyrTEC] 10 mg PO DAILY #30 capsule 05/02/22 Unknown Rx Levothyroxine [Synthroid] 25 mcg PO QDAY #30 05/02/22 Unknown Rx predniSONE [Deltasone] 20 mg PO DAILY #5 tablet 05/02/22 Unknown Rx ED Physical Exam - General Limitations: No Limitations General appearance: alert, in no apparent distress - Head Head exam: Present: atraumatic, normocephalic - Eye Eye exam: Present: normal appearance - ENT ENT exam: Present: mucous membranes moist - Neck Neck exam: Present: normal inspection - Respiratory Respiratory exam: Present: normal lung sounds bilaterally. Absent: respiratory distress - Cardiovascular Cardiovascular Exam: Present: regular rate, normal rhythm. Absent: systolic murmur, diastolic murmur, rubs, gallop - GI/Abdominal GI/Abdominal exam: Present: soft, normal bowel sounds - Extremities Exam Extremities exam: Present: normal inspection - Back Exam Back exam: Present: normal inspection - Neurological Exam Neurological exam: Present: alert, oriented X3 - Psychiatric Psychiatric exam: Present: normal affect, normal mood - Skin Skin exam: Present: warm, dry, intact, normal color. Absent: rash ED Course Vital Signs 05/01/22 05/02/22 05/02/22 23:17 05:57 06:17 Temperature 98.9 F Pulse Rate 98 H Pulse Rate [ 73 Anterior Bilateral] Respiratory 20 20 Rate Respiratory 18 Rate [Anterior Bilateral] Blood Pressure 124/78 [Right] O2 Sat by Pulse 95 94 Oximetry 05/02/22 05/02/22 09:15 09:40 Temperature Pulse Rate Pulse Rate [ 105 H Anterior Bilateral] Respiratory 18 Rate Respiratory 18 Rate [Anterior Bilateral] Blood Pressure [Right] O2 Sat by Pulse 96 Oximetry ED Medical Decision Making - Lab Data Result diagrams: 05/02/22 00:35 05/02/22 00:35 - EKG Data When compared to previous EKG there are: no significant change Interpretation: no acute changes - Medical Decision Making Labs 05/02/22 05/02/22 05/02/22 00:35 00:35 00:35 WBC 9.6 RBC 4.86 Hgb 12.8 Hct 40.7 MCV 84 MCH 26 L MCHC 32 RDW 15.1 Plt Count 201 Lymph % (Auto) 21.2 [place] % (Auto) 11.8 H Eos % (Auto) 4.9 H Baso % (Auto) 1.2 Lymph # (Auto) 2.0 [place] # (Auto) 1.1 H Eos # (Auto) 0.5 H Baso # (Auto) 0.1 Seg Neutrophils % 60.9 Seg Neutrophils # 5.8 Sodium 139 Potassium 3.7 Chloride 102.3 Carbon Dioxide 25 Anion Gap 15 BUN 11 Creatinine 0.9 Estimated GFR > 60 BUN/Creatinine Ratio 12 Glucose 258 H Calcium 9.2 Troponin T < 0.010 TSH 05/02/22 07:05 WBC RBC Hgb Hct MCV MCH MCHC RDW Plt Count Lymph % (Auto) [place] % (Auto) Eos % (Auto) Baso % (Auto) Lymph # (Auto) [place] # (Auto) Eos # (Auto) Baso # (Auto) Seg Neutrophils % Seg Neutrophils # Sodium Potassium Chloride Carbon Dioxide Anion Gap BUN Creatinine Estimated GFR BUN/Creatinine Ratio Glucose Calcium Troponin T TSH 8.920 H Vital Signs 05/01/22 05/02/22 05/02/22 23:17 05:57 06:17 Temperature 98.9 F Pulse Rate 98 H Pulse Rate [ 73 Anterior Bilateral] Respiratory 20 20 Rate Respiratory 18 Rate [Anterior Bilateral] Blood Pressure 124/78 [Right] O2 Sat by Pulse 95 94 Oximetry 12 lead and labs noted vss- no fever. no cough. no purulent sputum. no sob. no cp. I suspect there is a social component to her overnight stay pt being dc home with dc plan of care including diet, meds, activity and follow up. She verbalizes understanding of plan of care. - Differential Diagnosis asthma ae/med refill Critical care attestation.: If time is entered above; I have spent that time in minutes in the direct care of this critically ill patient, excluding procedure time. ED Disposition Clinical Impression: Obesity (BMI 30-39.9), Medication refill, Hypothyroidism Asthma exacerbation Qualifiers: Asthma severity: mild Asthma persistence: intermittent Qualified Code(s): J45.21 - Mild intermittent asthma with (acute) exacerbation Disposition: HOME / SELF CARE / HOMELESS Is pt being admited?: No Does the pt Need Aspirin: No Condition: Stable Instructions: Asthma, Adult, Abdominal Pain (ED) Additional Instructions: meds as ordered follow up with pcp referral below Prescriptions: predniSONE [Deltasone] 20 mg PO DAILY #5 tablet Albuterol Mdi (or & Nicu Only) [ProAir HFA Inhaler] 2 puff IH QID PRN #1 inhalation PRN Reason: Shortness Of Breath ALBUTEROL NEB's [Proventil 0.083% NEBS] 2.5 mg IH TID PRN #1 box PRN Reason: Wheezing Levothyroxine [Synthroid] 25 mcg PO QDAY #30 Cetirizine HCl [ZyrTEC] 10 mg PO DAILY #30 capsule Referrals: MARISOL BEARD MD [Primary Care Provider] - 3-5 Days Time of Disposition: 08:42
--- NOTE | 2022-05-03 10:06 | Electrocardiograph Report ---
[facility] Test Date: 2022-05-01 Test Time: 23:26:16 Pat Name: DAHIANA GERMAN Department: Room: Gender: F Hvac Manager: HAO : 1970 Requested By: DREA MCCOY Order Number: [id number] Reading MD: Stiven Spence Measurements Intervals [place] Rate: 107 P: 34 TX: 139 QRS: 35 QRSD: 79 T: 63 QT: 327 QTc: 436 Interpretive Statements Pacemaker spikes or artifacts Sinus tachycardia Compared to ECG 04/17/2022 17:38:34 Sinus rhythm no longer present Electronically Signed On 05-03-2022 10:06:22 EDT by Stiven Spence
== END 2022-05-02 09:40 | disposition home or self-care (01) ==
LOC: ED 20:49
DX: J45.901 Unspecified asthma with (acute) exacerbation (principal); E66.9 Obesity, unspecified; Z68.30 Body mass index [BMI] 30.0-30.9, adult; Z76.0 Encounter for issue of repeat prescription; E03.9 Hypothyroidism, unspecified; Z88.0 Allergy status to penicillin; Z88.6 Allergy status to analgesic agent; Z91.040 Latex allergy status
CPT/HCPCS: 36415; 80048; 84443; 84484; 85025; 93005; 94640; 94644; 99284

== ENCOUNTER 2022-05-15 07:28 | Inpatient (IN) | payer MEDICARE ==
[2022-05-15] MEDS ORDERED: traMADol 50 MG TAB PO ONE (09:28)
[2022-05-15] MEDS ORDERED: MAGNESIUM SULFATE 2 GM/50 ML BAG IV ONE (09:28)
[2022-05-15] MEDS ORDERED: ALBUTEROL 2.5 MG/3 ML NEBU IH ONE ×2 (09:28→12:46)
[2022-05-15] MEDS ORDERED: methylPREDNISolone Sod Succinate 125 MG/2 ML INJ IV ONE (09:28)
[2022-05-15] MEDS ORDERED: IPRATROPIUM 0.02% NEBU 2.5 ML IH ONE (09:28)
--- NOTE | 2022-05-15 09:46 | XRay Report ---
CHEST 1 VIEW 05/15/2022 9:27 AM INDICATION / CLINICAL INFORMATION: sob, cough. COMPARISON: 04/22/2022 FINDINGS: SUPPORT DEVICES: None. HEART / MEDIASTINUM: No significant abnormality. LUNGS / PLEURA: No significant pulmonary or pleural abnormality. No pneumothorax. ADDITIONAL FINDINGS: No significant additional findings. IMPRESSION: 1. No acute findings. Signer Name: Joao Wilson Jr, MD Signed: 05/15/2022 9:41 AM Workstation Name: [id number]
--- NOTE | 2022-05-15 10:11 | Emergency Department Report ---
ED Shortness of Breath HPI - General Chief Complaint: Dyspnea/Respdistress Stated Complaint: DIFFICULTY BREATHING Time Seen by Provider: 05/15/22 08:41 Source: patient, EMS Mode of arrival: Stretcher Limitations: No Limitations - History of Present Illness Initial Comments: 51-year-old female the past medical history of asthma with 3 previous intubation s and GERD presents to the hospital complaining of wheezing and shortness of breath the last 3 days. Patient also complains of a cough productive of yellow sputum, chest tightness, and sternal chest wall pain worse with palpation and cough. Patient currently resides at a motel and feels that something at the motel is exacerbating her symptoms. She attempted to move to an alternative room without improvement. - Related Data Home Medications Medication Instructions Recorded Confirmed Last Taken AtorvaSTATin [Lipitor] 40 mg PO QHS 01/12/20 04/23/20 Unknown Ascorbic Acid [Vitamin C] 04/23/20 Unknown Cinnamon 04/23/20 Unknown Ergocalciferol(Vitamin D2)(Nf) 04/23/20 Unknown [Vitamin D (Nf)] Vitamin E (Dl,Tocopheryl Acet) 04/23/20 Unknown [Vitamin E] Previous Rx's Medication Instructions Recorded Last Taken Type Albuterol Sulfate [Proair 1 - 2 puff IH Q4HR PRN #1 06/24/20 Unknown Rx Digihaler] aer.pw.bas Albuterol Sulfate [Proair 90 mcg IH Q4HR PRN #2 aer.pow.ba 08/23/20 Unknown Rx Respiclick] Ondansetron [Zofran Odt] 4 mg PO Q8HR PRN #15 tab.rapdis 10/08/20 Unknown Rx ALBUTEROL NEB's [Proventil 0.083% 3 ml IH Q6H PRN 30 Days #75 ml 01/11/21 Unknown Rx NEBS] Albuterol Sulfate [Albuterol 0.63% 0.63 mg IH Q4HR PRN #2 ml 10/20/21 Unknown Rx NEBS] Albuterol Sulfate [Proair 90 mcg IH Q4HR PRN #2 aer.pow.ba 10/20/21 Unknown Rx Respiclick] ALBUTEROL NEB's [Proventil 0.083% 2.5 mg IH TID PRN #1 box 11/17/21 Unknown Rx NEBS] ALBUTEROL NEB's [Proventil 0.083% 2.5 mg IH TID PRN #30 neb 12/16/21 Unknown Rx NEBS] Montelukast [Singulair] 10 mg PO QPM #14 tablet 12/16/21 Unknown Rx Levocetirizine Dihydrochloride 5 mg PO DAILY 30 Days #30 tab 02/15/22 Unknown Rx [Xyzal] Ipratropium (Nf) [Atrovent HFA 2 puff IH Q6HR PRN #1 inha 02/27/22 Unknown Rx 17MCG/PUFF] ALBUTEROL NEB's [Proventil 0.083% 3 ml IH Q6H PRN #75 ml 03/12/22 Unknown Rx NEBS] Benzonatate [Tessalon Perles] 100 mg PO Q8HR #30 capsule 03/12/22 Unknown Rx Cetirizine HCl/Pseudoephedrine 1 each PO BID PRN #60 tab 03/12/22 Unknown Rx [Zyrtec-D Tablet] Montelukast [Singulair] 10 mg PO QPM #30 tablet 03/12/22 Unknown Rx Albuterol Mdi (or & Nicu Only) 2 puff IH QID PRN #8.5 gram 04/11/22 Unknown Rx [ProAir HFA Inhaler] Ipratropium/Albuter (Nf) 2 puff IH QID #1 each 04/11/22 Unknown Rx [Combivent Inhaler] Magnesium Oxide [Mag-Ox] 400 mg PO QDAY #3 tab 04/11/22 Unknown Rx traMADoL [Ultram] 50 mg PO Q8HR PRN #9 tablet 04/11/22 Unknown Rx Cetirizine HCl [Zyrtec 10mg tab] 10 mg PO DAILY #60 tab 04/14/22 Unknown Rx Albuterol Mdi (or & Nicu Only) 2 puff IH QID PRN #8.5 gram 04/17/22 Unknown Rx [ProAir HFA Inhaler] Famotidine [Pepcid] 20 mg PO BID #30 tablet 04/17/22 Unknown Rx ALBUTEROL NEB's [Proventil 0.083% 2.5 mg IH TID PRN #1 box 05/02/22 Unknown Rx NEBS] Albuterol Mdi (or & Nicu Only) 2 puff IH QID PRN #1 inhalation 05/02/22 Unknown Rx [ProAir HFA Inhaler] Cetirizine HCl [ZyrTEC] 10 mg PO DAILY #30 capsule 05/02/22 Unknown Rx Levothyroxine [Synthroid] 25 mcg PO QDAY #30 05/02/22 Unknown Rx predniSONE [Deltasone] 20 mg PO DAILY #5 tablet 05/02/22 Unknown Rx Allergies Allergy/AdvReac Type Severity Reaction Status Date / Time aspirin Allergy Anaphylaxis Verified 05/15/22 07:46 azithromycin [From Zithromax] Allergy Anaphylaxis Verified 05/15/22 07:46 doxycycline Allergy Rash Verified 05/15/22 07:46 ketorolac tromethamine Allergy Anaphylaxis Verified 05/15/22 07:46 [From Toradol] Latex, Natural Rubber Allergy Angioedema Verified 05/15/22 07:46 morphine Allergy Shortness Verified 05/15/22 07:46 of Breath NSAIDS (Non-Steroidal Allergy Anaphylaxis Verified 05/15/22 07:46 Anti-Inflamma Penicillins Allergy Hives Verified 05/15/22 07:46 ED Review of Systems ROS: Stated complaint: DIFFICULTY BREATHING Other details as noted in HPI Comment: All other systems reviewed and negative ED Past Medical Hx - Past Medical History Hx GERD: Yes Hx Asthma: Yes Additional medical history: sinus problems. Prior Intubations x3. Obesity. hypothyroid - Surgical History Additional Surgical History: x4, umbilical hernia repair, sinus surgeries, D&C. thyroid removal. tubligation - Social History Smoking Status: Never Smoker Substance Use Type: None - Medications Home Medications: Home Medications Medication Instructions Recorded Confirmed Last Taken Type AtorvaSTATin [Lipitor] 40 mg PO QHS 01/12/20 04/23/20 Unknown History Ascorbic Acid [Vitamin C] 04/23/20 Unknown History Cinnamon 04/23/20 Unknown History Ergocalciferol(Vitamin D2)(Nf) 04/23/20 Unknown History [Vitamin D (Nf)] Vitamin E (Dl,Tocopheryl Acet) 04/23/20 Unknown History [Vitamin E] Albuterol Sulfate [Proair 1 - 2 puff IH Q4HR PRN #1 06/24/20 Unknown Rx Digihaler] aer.pw.bas Albuterol Sulfate [Proair 90 mcg IH Q4HR PRN #2 aer.pow.ba 08/23/20 Unknown Rx Respiclick] Ondansetron [Zofran Odt] 4 mg PO Q8HR PRN #15 tab.rapdis 10/08/20 Unknown Rx ALBUTEROL NEB's [Proventil 0.083% 3 ml IH Q6H PRN 30 Days #75 ml 01/11/21 Unknown Rx NEBS] Albuterol Sulfate [Albuterol 0.63% 0.63 mg IH Q4HR PRN #2 ml 10/20/21 Unknown Rx NEBS] Albuterol Sulfate [Proair 90 mcg IH Q4HR PRN #2 aer.pow.ba 10/20/21 Unknown Rx Respiclick] ALBUTEROL NEB's [Proventil 0.083% 2.5 mg IH TID PRN #1 box 11/17/21 Unknown Rx NEBS] ALBUTEROL NEB's [Proventil 0.083% 2.5 mg IH TID PRN #30 neb 12/16/21 Unknown Rx NEBS] Montelukast [Singulair] 10 mg PO QPM #14 tablet 12/16/21 Unknown Rx Levocetirizine Dihydrochloride 5 mg PO DAILY 30 Days #30 tab 02/15/22 Unknown Rx [Xyzal] Ipratropium (Nf) [Atrovent HFA 2 puff IH Q6HR PRN #1 inha 02/27/22 Unknown Rx 17MCG/PUFF] ALBUTEROL NEB's [Proventil 0.083% 3 ml IH Q6H PRN #75 ml 03/12/22 Unknown Rx NEBS] Benzonatate [Tessalon Perles] 100 mg PO Q8HR #30 capsule 03/12/22 Unknown Rx Cetirizine HCl/Pseudoephedrine 1 each PO BID PRN #60 tab 03/12/22 Unknown Rx [Zyrtec-D Tablet] Montelukast [Singulair] 10 mg PO QPM #30 tablet 03/12/22 Unknown Rx Albuterol Mdi (or & Nicu Only) 2 puff IH QID PRN #8.5 gram 04/11/22 Unknown Rx [ProAir HFA Inhaler] Ipratropium/Albuter (Nf) 2 puff IH QID #1 each 04/11/22 Unknown Rx [Combivent Inhaler] Magnesium Oxide [Mag-Ox] 400 mg PO QDAY #3 tab 04/11/22 Unknown Rx traMADoL [Ultram] 50 mg PO Q8HR PRN #9 tablet 04/11/22 Unknown Rx Cetirizine HCl [Zyrtec 10mg tab] 10 mg PO DAILY #60 tab 04/14/22 Unknown Rx Albuterol Mdi (or & Nicu Only) 2 puff IH QID PRN #8.5 gram 04/17/22 Unknown Rx [ProAir HFA Inhaler] Famotidine [Pepcid] 20 mg PO BID #30 tablet 04/17/22 Unknown Rx ALBUTEROL NEB's [Proventil 0.083% 2.5 mg IH TID PRN #1 box 05/02/22 Unknown Rx NEBS] Albuterol Mdi (or & Nicu Only) 2 puff IH QID PRN #1 inhalation 05/02/22 Unknown Rx [ProAir HFA Inhaler] Cetirizine HCl [ZyrTEC] 10 mg PO DAILY #30 capsule 05/02/22 Unknown Rx Levothyroxine [Synthroid] 25 mcg PO QDAY #30 05/02/22 Unknown Rx predniSONE [Deltasone] 20 mg PO DAILY #5 tablet 05/02/22 Unknown Rx ED Physical Exam - General Limitations: No Limitations - Other Other exam information: General: No acute distress Head: Atraumatic Eyes: normal appearance ENT: Moist mucous membranes Neck: Normal appearance, no midline tenderness Chest: Bilateral expiratory wheeze without tachypnea accessory muscle use CV: Mild tachycardia regular Abdomen: Soft, normal bowel sounds, nontender, nondistended, no rebound or guarding Back: Normal inspection Extremity: Normal inspection, full range of motion, no calf tenderness or leg edema Neuro: Alert O x 3, no facial asymmetry, speech clear, no gross motor sensory deficit Psych: Appropriate behavior Skin: No rash ED Course Vital Signs 05/15/22 05/15/22 05/15/22 07:44 08:52 10:38 Temperature 98.4 F 98.2 F Pulse Rate 103 H 88 Pulse Rate [ 78 Anterior Bilateral Throughout] Pulse Rate [ 82 Anterior Bilateral] Respiratory 18 13 Rate Respiratory 18 Rate [Anterior Bilateral Throughout] Respiratory 16 Rate [Anterior Bilateral] Blood Pressure 158/91 102/61 [Left] O2 Sat by Pulse 97 96 Oximetry ED Medical Decision Making - Radiology Data Radiology results: report reviewed CHEST 1 VIEW 05/15/2022 9:27 AM INDICATION / CLINICAL INFORMATION: sob, cough. COMPARISON: 04/22/2022 FINDINGS: SUPPORT DEVICES: None. HEART / MEDIASTINUM: No significant abnormality. LUNGS / PLEURA: No significant pulmonary or pleural abnormality. No pneumothorax. ADDITIONAL FINDINGS: No significant additional findings. IMPRESSION: 1. No acute findings. - Medical Decision Making 51-year-old female with history of asthma with 3 intubations presents to the hospital with acute asthma exacerbation. Patient continues to have significant wheezing despite 2 hour-long continuous nebs, Solu-Medrol, and magnesium. Chest x-ray without acute findings. Patient will be admitted to the hospital status asthmaticus. Case discussed with Dr. Talbert hospitalist. CBC and BMP results pending at this point Critical Care Time: Yes Critical care time in (mins) excluding proc time.: 45 Critical care attestation.: If time is entered above; I have spent that time in minutes in the direct care of this critically ill patient, excluding procedure time. Critical Care Time: 45 Minutes of critical care time excluding procedures were used in the care of the patient. I discussed treatment plan with the nursing team members. I reviewed electronic record. Patient required multiple interventions and reassessments including multiple continuous nebs. ED Disposition Clinical Impression: Status asthmaticus Disposition: ADMITTED INPATIENT Is pt being admited?: Yes Condition: Stable Time of Disposition: 14:43 [facility]
[2022-05-15 16:19] LABS: BUN/Creatinine Ratio 12; Blood Urea Nitrogen 12 mg/dL (7-17); Hemolysis Index 27
[2022-05-15] MEDS ORDERED: NON-FORMULARY EACH (Albuterol Sulfate [Proair Digihaler] 90 MCG Aer.Pw.Bas) IH PRN (17:01)
[2022-05-15] MEDS ORDERED: ALBUTEROL 8.5 GM MDI INHALATION IH PRN (17:01)
--- NOTE | 2022-05-15 17:01 | History and Physical Report ---
History of Present Illness Date of examination: 05/15/22 Date of admission: 05/15/2022 Chief complaint: Persistent wheezing and shortness of breath. History of present illness: 51-year-old female the past medical history of asthma with 3 previous intubations and GERD presents to the hospital complaining of wheezing and shortness of breath the last 3 days. Patient also complains of a cough productive of yellow sputum, chest tightness, and sternal chest wall pain worse with palpation and cough. Patient [place] and feels that something at the motel is exacerbating her symptoms. She attempted to move to an alternative room without improvement. 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[employer] no syncope no seizures Skin no rash no itching Psychiatric no depression no homicidal or suicidal tendencies Hematologic no lymphedema or bruising Endocrine no polydipsia no polyuria no cold intolerance no heat intolerance Past History Past Medical History: COPD, GERD, hypothyroidism, other (Asthma) Past Surgical History: (Asked for), Other (Umbilical hernia surgery following a right inguinal surgeon) Social history: lives with family, full code Family history: hypertension Medications and Allergies Allergies Allergy/AdvReac Type Severity Reaction Status Date / Time aspirin Allergy Anaphylaxis Verified 05/15/22 07:46 azithromycin [From Zithromax] Allergy Anaphylaxis Verified 05/15/22 07:46 doxycycline Allergy Rash Verified 05/15/22 07:46 ketorolac tromethamine Allergy Anaphylaxis Verified 05/15/22 07:46 [From Toradol] Latex, Natural Rubber Allergy Angioedema Verified 05/15/22 07:46 morphine Allergy Shortness Verified 05/15/22 07:46 of Breath NSAIDS (Non-Steroidal Allergy Anaphylaxis Verified 05/15/22 07:46 Anti-Inflamma Penicillins Allergy Hives Verified 05/15/22 07:46 Home Medications Medication Instructions Recorded Confirmed Last Taken Type AtorvaSTATin [Lipitor] 40 mg PO QHS 01/12/20 04/23/20 Unknown History Ascorbic Acid [Vitamin C] 04/23/20 Unknown History Cinnamon 04/23/20 Unknown History Ergocalciferol(Vitamin D2)(Nf) 04/23/20 Unknown History [Vitamin D (Nf)] Vitamin E (Dl,Tocopheryl Acet) 04/23/20 Unknown History [Vitamin E] Albuterol Sulfate [Proair 1 - 2 puff IH Q4HR PRN #1 06/24/20 Unknown Rx Digihaler] aer.pw.bas Albuterol Sulfate [Proair 90 mcg IH Q4HR PRN #2 aer.pow.ba 08/23/20 Unknown Rx Respiclick] Ondansetron [Zofran Odt] 4 mg PO Q8HR PRN #15 tab.rapdis 10/08/20 Unknown Rx ALBUTEROL NEB's [Proventil 0.083% 3 ml IH Q6H PRN 30 Days #75 ml 01/11/21 U nknown Rx NEBS] Albuterol Sulfate [Albuterol 0.63% 0.63 mg IH Q4HR PRN #2 ml 10/20/21 Unknown Rx NEBS] Albuterol Sulfate [Proair 90 mcg IH Q4HR PRN #2 aer.pow.ba 10/20/21 Unknown Rx Respiclick] ALBUTEROL NEB's [Proventil 0.083% 2.5 mg IH TID PRN #1 box 11/17/21 Unknown Rx NEBS] ALBUTEROL NEB's [Proventil 0.083% 2.5 mg IH TID PRN #30 neb 12/16/21 Unknown Rx NEBS] Montelukast [Singulair] 10 mg PO QPM #14 tablet 12/16/21 Unknown Rx Levocetirizine Dihydrochloride 5 mg PO DAILY 30 Days #30 tab 02/15/22 Unknown Rx [Xyzal] Ipratropium (Nf) [Atrovent HFA 2 puff IH Q6HR PRN #1 inha 02/27/22 Unknown Rx 17MCG/PUFF] ALBUTEROL NEB's [Proventil 0.083% 3 ml IH Q6H PRN #75 ml 03/12/22 Unknown Rx NEBS] Benzonatate [Tessalon Perles] 100 mg PO Q8HR #30 capsule 03/12/22 Unknown Rx Cetirizine HCl/Pseudoephedrine 1 each PO BID PRN #60 tab 03/12/22 Unknown Rx [Zyrtec-D Tablet] Montelukast [Singulair] 10 mg PO QPM #30 tablet 03/12/22 Unknown Rx Albuterol Mdi (or & Nicu Only) 2 puff IH QID PRN #8.5 gram 04/11/22 Unknown Rx [ProAir HFA Inhaler] Ipratropium/Albuter (Nf) 2 puff IH QID #1 each 04/11/22 Unknown Rx [Combivent Inhaler] Magnesium Oxide [Mag-Ox] 400 mg PO QDAY #3 tab 04/11/22 Unknown Rx traMADoL [Ultram] 50 mg PO Q8HR PRN #9 tablet 04/11/22 Unknown Rx Cetirizine HCl [Zyrtec 10mg tab] 10 mg PO DAILY #60 tab 04/14/22 Unknown Rx Albuterol Mdi (or & Nicu Only) 2 puff IH QID PRN #8.5 gram 04/17/22 Unknown Rx [ProAir HFA Inhaler] Famotidine [Pepcid] 20 mg PO BID #30 tablet 04/17/22 Unknown Rx ALBUTEROL NEB's [Proventil 0.083% 2.5 mg IH TID PRN #1 box 05/02/22 Unknown Rx NEBS] Albuterol Mdi (or & Nicu Only) 2 puff IH QID PRN #1 inhalation 05/02/22 Unknown Rx [ProAir HFA Inhaler] Cetirizine HCl [ZyrTEC] 10 mg PO DAILY #30 capsule 05/02/22 Unknown Rx Levothyroxine [Synthroid] 25 mcg PO QDAY #30 05/02/22 Unknown Rx predniSONE [Deltasone] 20 mg PO DAILY #5 tablet 05/02/22 Unknown Rx Exam - Constitutional Vitals: Temp Pulse Resp BP Pulse Ox 98.2 F 105 H 16 102/61 96 05/15/22 08:52 05/15/22 15:30 05/15/22 15:30 05/15/22 08:52 05/15/22 08:52 General appearance: Present: severe distress, well-nourished - EENT Eyes: Present: PERRL ENT: hearing intact, clear oral mucosa - Neck Neck: Present: supple, normal ROM - Respiratory Respiratory effort: normal Respiratory: bilateral: diminished, rhonchi, wheezing - Cardiovascular Heart rate: 78 Rhythm: regular Heart Sounds: Present: S1 & S2. Absent: rub, click - Extremities Extremities: pulses symmetrical, No edema Peripheral Pulses: within normal limits - Abdominal General gastrointestinal: Present: soft, non-tender, non-distended, normal bowel sounds Female genitourinary: Present: normal - Integumentary Integumentary: Present: clear, warm, dry - Musculoskeletal Musculoskeletal: gait normal, strength equal bilaterally - Psychiatric Psychiatric: appropriate mood/affect, intact judgment & insight - Neurologic Neurologic: CNII-XII intact, moves all extremities Results - Labs CBC & Chem 7: 05/15/22 15:36 05/15/22 15:36 Labs: Laboratory Last Values Sodium 139 mmol/L (137-145) 05/15/22 15:36 Potassium 4.2 mmol/L (3.6-5.0) 05/15/22 15:36 Chloride 101.0 mmol/L (98-107) 05/15/22 15:36 Carbon Dioxide 21 mmol/L (22-30) L 05/15/22 15:36 Anion Gap 21 mmol/L 05/15/22 15:36 BUN 12 mg/dL (7-17) 05/15/22 15:36 Creatinine 1.0 mg/dL (0.6-1.2) 05/15/22 15:36 Estimated GFR > 60 ml/min 05/15/22 15:36 BUN/Creatinine Ratio 12 % 05/15/22 15:36 Glucose 353 mg/dL (65-100) H 05/15/22 15:36 Calcium 9.0 mg/dL (8.4-10.2) 05/15/22 15:36 Short CBC 05/15/22 Range/Units 15:36 WBC 6.8 (4.5-11.0) K/mm3 Hgb 13.6 (10.1-14.3) gm/dl Hct 42.2 (30.3-42.9) % Plt Count 230 (140-440) K/mm3 BMP 05/15/22 15:36 Sodium 139 Potassium 4.2 Chloride 101.0 Carbon Dioxide 21 L BUN 12 Creatinine 1.0 Glucose 353 H Calcium 9.0 - Imaging and Cardiology Chest x-ray: report reviewed (No acute findings) Assessment and Plan Advance Directives: Yes (Full code) VTE prophylaxis?: Chemical Plan of care discussed with patient/family: Yes - Patient Problems (1) Acute respiratory failure with hypoxia Current Visit: Yes Status: Acute Plan to address problem: Patient was hypoxic at the time of presentation to the emergency room improved with oxygen supplementation (2) Status asthmaticus Current Visit: Yes Status: Acute Qualifiers: Asthma severity: severe Plan to address problem: Continue duo nebs [id number] and as needed, IV Solu-Medrol 60 mg every 6 IV Levaquin 750 mg daily Respiratory assessment and treatment (3) Allergic rhinitis Current Visit: Yes Status: Chronic Qualifiers: Allergic rhinitis seasonality: non-seasonal Plan to address problem: Continue Zyrtec (4) GERD (gastroesophageal reflux disease) Current Visit: Yes Status: Chronic Qualifiers: Esophagitis presence: without esophagitis Qualified Code(s): K21.9 - Gastro-esophageal reflux disease without esophagitis Plan to address problem: Continue PPIs (5) Hypothyroidism (acquired) Current Visit: Yes Status: Chronic Plan to address problem: Continue Synthroid Check TSH (6) DVT prophylaxis Current Visit: Yes Status: Acute Plan to address problem: On heparin and GI prophylaxis (7) Advance care planning Current Visit: Yes Status: Acute Plan to address problem: Disease education conducted, diagnosis discussed prognosis discussed. Care plan acknowledged +30 minutes patient is full code.
[2022-05-15] MEDS ORDERED: ONDANSETRON 4 MG/2 ML INJ IV PRN ×2 (17:05→21:48)
[2022-05-15] MEDS ORDERED: METOCLOPRAMIDE 10 MG/2 ML INJ IV PRN (17:05)
[2022-05-15] MEDS ORDERED: ACETAMINOPHEN 325 MG TAB PO PRN ×2 (17:05→21:48)
[2022-05-15] MEDS ORDERED: traMADol 50 MG TAB PO PRN (17:09)
[2022-05-15] MEDS ORDERED: NON-FORMULARY EACH (Ipratropium (Nf) 1 PUFF Inha) IH PRN (17:09)
[2022-05-15] MEDS ORDERED: IPRATROPIUM/ALBUTEROL SULFATE 3 ML AMPUL.NEB IH PRN (17:15)
[2022-05-15] MEDS ORDERED: NON-FORMULARY EACH (Cetirizine Hcl [Zyrtec 10mg Cap] 10 MG Capsule) PO SCH (17:30)
[2022-05-15] MEDS ORDERED: ALBUTEROL 2.5 MG/3 ML NEBU IH PRN (17:42)
[2022-05-15] MEDS: methylPREDNISolone Sod Succinate 125 MG/2 ML INJ IV SCH (17:55)
[2022-05-15] MEDS: BENZONATATE 100 MG CAP PO SCH (17:55)
[2022-05-15] MEDS ORDERED: NON-FORMULARY EACH (Ascorbic Acid [Vitamin C] 1,000 MG Tablet) INHALATION SCH (18:00)
[2022-05-15] MEDS ORDERED: MONTELUKAST 10 MG TAB PO SCH ×2 (18:00)
[2022-05-15 19:44] LABS: Hematocrit 42.2 % (30.3-42.9); Hemoglobin 13.6 gm/dl (10.1-14.3); Mean Corpuscular HGB Conc 32 % (30-34); Mean Corpuscular Volume 83 fl (79-97); Platelet Count 230 K/mm3 (140-440); Red Blood Count 5.07 M/mm3 (3.65-5.03)
[2022-05-15 19:48] LABS: Basophils % (Manual) 0 % (0.0-1.8); Eosinophils % (Manual) 0 % (0.0-4.3); Monocytes % (Manual) 0 % (0.0-7.3); Total Cells Counted 100
[2022-05-15 19:49] LABS: Platelet Estimate Consistent w Auto; RBC Morphology Normal
[2022-05-15] MEDS ORDERED: oxyCODONE /ACETAMINOPHEN 5-325MG TAB PO PRN (21:48)
[2022-05-15] MEDS ORDERED: MORPHINE 2 MG/1 ML INJ IV PRN (21:48)
[2022-05-15] MEDS ORDERED: FAMOTIDINE 20 MG TAB PO SCH (22:00)
[2022-05-15] MEDS ORDERED: SODIUM CHLORIDE 0.9% 1000 ML 1,000 ML IV SCH (22:00)
[2022-05-15] MEDS: IPRATROPIUM/ALBUTEROL SULFATE 3 ML AMPUL.NEB IH SCH (23:48)
[2022-05-16] MEDS ORDERED: diphenhydrAMINE 50 MG/ML VIAL IV ONE (04:25)
[2022-05-16] MEDS: BENZONATATE 100 MG CAP PO SCH ×4 (05:46→22:48)
[2022-05-16] MEDS: methylPREDNISolone Sod Succinate 125 MG/2 ML INJ IV SCH ×4 (05:46→22:48)
[2022-05-16] MEDS: FAMOTIDINE 20 MG TAB PO SCH ×3 (06:15→22:48)
[2022-05-16] MEDS: LEVOTHYROXINE 25 MCG TAB PO SCH ×2 (06:15→09:59)
[2022-05-16] MEDS: HEPARIN 5,000 UNIT/1 ML VIAL SUB-Q SCH ×3 (06:15→22:48)
[2022-05-16] MEDS: IPRATROPIUM/ALBUTEROL SULFATE 3 ML AMPUL.NEB IH SCH ×6 (06:22→20:18)
[2022-05-16 08:00] LABS: Hematocrit 41.2 % (30.3-42.9); Mean Corpuscular HGB Conc 32 % (30-34); Mean Corpuscular Volume 83 fl (79-97); Platelet Count 222 K/mm3 (140-440); Red Blood Count 4.95 M/mm3 (3.65-5.03); Red Cell Distribution Width 15.1 % (13.2-15.2)
[2022-05-16 08:21] LABS: Alanine Aminotransferase 28 units/L (7-56); Albumin 4.4 g/dL (3.9-5); BUN/Creatinine Ratio 17; Blood Urea Nitrogen 15 mg/dL (7-17); Calcium 9.2 mg/dL (8.4-10.2); Hemolysis Index 29
--- NOTE | 2022-05-16 09:37 | Progress Note ---
Assessment and Plan Assessment and plan: Advance Directives: Yes (Full code) VTE prophylaxis?: Chemical Plan of care discussed with patient/family: Yes - Patient Problems (1) Acute respiratory failure with hypoxia Current Visit: Yes Status: Acute Plan to address problem: Patient was hypoxic at the time of presentation to the emergency room improved with oxygen supplementation (2) Status asthmaticus Current Visit: Yes Status: Acute Qualifiers: Asthma severity: severe Plan to address problem: Continue duo nebs [id number] and as needed, IV Solu-Medrol 60 mg every 6 IV Levaquin 750 mg daily Respiratory assessment and treatment (3) Allergic rhinitis Current Visit: Yes Status: Chronic Qualifiers: Allergic rhinitis seasonality: non-seasonal Plan to address problem: Continue Zyrtec (4) GERD (gastroesophageal reflux disease) Current Visit: Yes Status: Chronic Qualifiers: Esophagitis presence: without esophagitis Qualified Code(s): K21.9 - Gastro-esophageal reflux disease without esophagitis Plan to address problem: Continue PPIs (5) Hypothyroidism (acquired) Current Visit: Yes Status: Chronic Plan to address problem: Continue Synthroid Check TSH (6) DVT prophylaxis Current Visit: Yes Status: Acute Plan to address problem: On heparin and GI prophylaxis (7) Advance care planning Current Visit: Yes Status: Acute Plan to address problem: Disease education conducted, diagnosis discussed prognosis discussed. Care plan acknowledged +30 minutes patient is full code. History Interval history: I have seen and examined the patient at the bedside Patient is morbidly obese, admitted with acute exacerbation of bronchial asthma Patient still complains of some shortness of breath and wheezing Vital signs noted Hospitalist Physical - Constitutional Vitals: Temp Pulse Resp BP Pulse Ox 97.6 F 102 H 19 130/92 94 05/16/22 05:54 05/16/22 08:00 05/16/22 08:00 05/16/22 05:54 05/16/22 09:36 General appearance: Present: mild distress, well-nourished, obese (Morbidly obese) - EENT Eyes: Present: PERRL, EOM intact - Neck Neck: Present: supple, normal ROM - Respiratory Respiratory effort: normal Respiratory: bilateral: diminished, rales, wheezing - Cardiovascular Rhythm: regular Heart Sounds: Present: S1 & S2 - Extremities Extremities: no ischemia, pulses intact - Abdominal General gastrointestinal: soft, non-tender, non-distended, normal bowel sounds - Integumentary Integumentary: Present: clear, warm - Psychiatric Psychiatric: appropriate mood/affect, cooperative - Neurologic Neurologic: CNII-XII intact, moves all extremities Results - Labs CBC & Chem 7: 05/16/22 07:37 05/16/22 07:37 Labs: Laboratory Last Values WBC 16.5 K/mm3 (4.5-11.0) H 05/16/22 07:37 RBC 4.95 M/mm3 (3.65-5.03) 05/16/22 07:37 Hgb 13.0 gm/dl (10.1-14.3) 05/16/22 07:37 Hct 41.2 % (30.3-42.9) 05/16/22 07:37 MCV 83 fl (79-97) 05/16/22 07:37 MCH 26 pg (28-32) L 05/16/22 07:37 MCHC 32 % (30-34) 05/16/22 07:37 RDW 15.1 % (13.2-15.2) 05/16/22 07:37 Plt Count 222 K/mm3 (140-440) 05/16/22 07:37 Add Manual Diff Complete 05/15/22 15:36 Total Counted 100 05/15/22 15:36 Seg Neutrophils % Board Machine Set Up Operator 05/16/22 07:37 Seg Neuts % (Manual) 100.0 % (40.0-70.0) H 05/15/22 15:36 Band Neutrophils % 0 % 05/15/22 15:36 Lymphocytes % (Manual) 0 % (13.4-35.0) L 05/15/22 15:36 Reactive Lymphs % (Man) 0 % 05/15/22 15:36 Monocytes % (Manual) 0 % (0.0-7.3) 05/15/22 15:36 Eosinophils % (Manual) 0 % (0.0-4.3) 05/15/22 15:36 Basophils % (Manual) 0 % (0.0-1.8) 05/15/22 15:36 Metamyelocytes % 0 % 05/15/22 15:36 Myelocytes % 0 % 05/15/22 15:36 Promyelocytes % 0 % 05/15/22 15:36 Blast Cells % 0 % 05/15/22 15:36 Nucleated RBC % Not Reportable 05/15/22 15:36 Seg Neutrophils # Man 6.8 K/mm3 (1.8-7.7) 05/15/22 15:36 Band Neutrophils # 0.0 K/mm3 05/15/22 15:36 Lymphocytes # (Manual) 0.0 K/mm3 (1.2-5.4) L 05/15/22 15:36 Abs React Lymphs (Man) 0.0 K/mm3 05/15/22 15:36 Monocytes # (Manual) 0.0 K/mm3 (0.0-0.8) 05/15/22 15:36 Eosinophils # (Manual) 0.0 K/mm3 (0.0-0.4) 05/15/22 15:36 Basophils # (Manual) 0.0 K/mm3 (0.0-0.1) 05/15/22 15:36 Metamyelocytes # 0.0 K/mm3 05/15/22 15:36 Myelocytes # 0.0 K/mm3 05/15/22 15:36 Promyelocytes # 0.0 K/mm3 05/15/22 15:36 Blast Cells # 0.0 K/mm3 05/15/22 15:36 WBC Morphology Not Reportable 05/15/22 15:36 Hypersegmented Neuts Not Reportable 05/15/22 15:36 Hyposegmented Neuts Not Reportable 05/15/22 15:36 Hypogranular Neuts Not Reportable 05/15/22 15:36 Smudge Cells Not Reportable 05/15/22 15:36 Toxic Granulation Not Reportable 05/15/22 15:36 Toxic Vacuolation Not Reportable 05/15/22 15:36 Dohle Bodies Not Reportable 05/15/22 15:36 Pelger-Huet Anomaly Not Reportable 05/15/22 15:36 John Rods Not Reportable 05/15/22 15:36 Platelet Estimate Consistent w auto 05/15/22 15:36 Clumped Platelets Not Reportable 05/15/22 15:36 Plt Clumps, EDTA Not Reportable 05/15/22 15:36 Large Platelets Not Reportable 05/15/22 15:36 Giant Platelets Not Reportable 05/15/22 15:36 Platelet Satelliting Not Reportable 05/15/22 15:36 Plt Morphology Comment Not Reportable 05/15/22 15:36 RBC Morphology Normal 05/15/22 15:36 Dimorphic RBCs Not Reportable 05/15/22 15:36 Polychromasia Not Reportable 05/15/22 15:36 Hypochromasia Not Reportable 05/15/22 15:36 Poikilocytosis Not Reportable 05/15/22 15:36 Anisocytosis Not Reportable 05/15/22 15:36 Microcytosis Not Reportable 05/15/22 15:36 Macrocytosis Not Reportable 05/15/22 15:36 Spherocytes Not Reportable 05/15/22 15:36 Pappenheimer Bodies Not Reportable 05/15/22 15:36 Sickle Cells Not Reportable 05/15/22 15:36 Target Cells Not Reportable 05/15/22 15:36 Tear Drop Cells Not Reportable 05/15/22 15:36 Ovalocytes Not Reportable 05/15/22 15:36 Helmet Cells Not Reportable 05/15/22 15:36 [place] Bodies Not Reportable 05/15/22 15:36 Weston Rings Not Reportable 05/15/22 15:36 Milligan Cells Not Reportable 05/15/22 15:36 Bite Cells Not Reportable 05/15/22 15:36 Crenated Cell Not Reportable 05/15/22 15:36 Elliptocytes Not Reportable 05/15/22 15:36 Acanthocytes (Spur) Not Reportable 05/15/22 15:36 Rouleaux Not Reportable 05/15/22 15:36 Hemoglobin C Crystals Not Reportable 05/15/22 15:36 Schistocytes Not Reportable 05/15/22 15:36 Malaria parasites Not Reportable 05/15/22 15:36 Ronni Bodies Not Reportable 05/15/22 15:36 Hem Pathologist Commnt No 05/15/22 15:36 Sodium 135 mmol/L (137-145) L 05/16/22 07:37 Potassium 4.9 mmol/L (3.6-5.0) 05/16/22 07:37 Chloride 104.2 mmol/L (98-107) 05/16/22 07:37 Carbon Dioxide 21 mmol/L (22-30) L 05/16/22 07:37 Anion Gap 15 mmol/L 05/16/22 07:37 BUN 15 mg/dL (7-17) 05/16/22 07:37 Creatinine 0.9 mg/dL (0.6-1.2) 05/16/22 07:37 Estimated GFR > 60 ml/min 05/16/22 07:37 BUN/Creatinine Ratio 17 % 05/16/22 07:37 Glucose 309 mg/dL (65-100) H 05/16/22 07:37 Calcium 9.2 mg/dL (8.4-10.2) 05/16/22 07:37 Total Bilirubin 0.40 mg/dL (0.1-1.2) 05/16/22 07:37 AST 18 units/L (5-40) 05/16/22 07:37 ALT 28 units/L (7-56) 05/16/22 07:37 Alkaline Phosphatase 74 units/L (35-129) 05/16/22 07:37 Total Protein 6.9 g/dL (6.3-8.2) 05/16/22 07:37 Albumin 4.4 g/dL (3.9-5) 05/16/22 07:37 Albumin/Globulin Ratio 1.8 % 05/16/22 07:37 Patino/IV: Voiding Method Toilet Active Medications - Current Medications Current Medications: Generic Name Dose Route Start Last Admin Trade Name Freq PRN Reason Stop Dose Admin Acetaminophen 650 mg 05/15/22 17:05 05/16/22 01:53 Acetaminophen 325 Mg Tab PO 650 mg Q4H PRN Administration Pain MILD(1-3)/Fever >100.5/NATION Albuterol/Ipratropium 1 ampul 05/15/22 20:00 05/16/22 09:34 Ipratropium/Albuterol Sulfate 3 Ml Ampul.Neb IH 1 ampul QIDRT [facility] Administration Ascorbic Acid 1,000 mg 05/16/22 10:00 Ascorbic Acid 500 Mg Tab PO QDAY [facility] Atorvastatin Calcium 40 mg 05/15/22 22:00 05/16/22 06:15 Atorvastatin 40 Mg Tab PO Not Given QHS MURALI Benzonatate 100 mg 05/15/22 18:00 05/16/22 06:16 Benzonatate 100 Mg Cap PO Not Given Q8HR [facility] Cetirizine HCl 10 mg 05/16/22 10:00 Cetirizine 10 Mg Tab PO DAILY [facility] Famotidine 20 mg 05/15/22 22:00 05/16/22 06:15 Famotidine 20 Mg Tab PO Not Given BID [facility] Heparin Sodium (Porcine) 5,000 unit 05/15/22 22:00 05/16/22 06:15 Heparin 5,000 Unit/1 Ml Vial SUB-Q Not Given Q12HR [facility] Levofloxacin/Dextrose 750 mg in 150 mls @ 100 mls/hr 05/15/22 18:00 05/15/22 18:13 Levaquin 750mg/150ml IV 05/19/22 11:29 100 mls/hr Q24HR MURALI Administration Protocol Sodium Chloride 1,000 mls @ 42 mls/hr 05/15/22 22:00 05/16/22 01:55 Nacl 0.9% 1000 Ml IV 42 mls/hr DIRECT MURALI Administration Insulin Human Lispro 0 unit 05/16/22 11:30 Insulin Lispro 100 Unit/Ml SUB-Q ACHS [facility] Protocol Levothyroxine Sodium 25 mcg 05/15/22 17:30 05/16/22 06:15 Levothyroxine 25 Mcg Tab PO Not Given QDAY [facility] Magnesium Oxide 400 mg 05/16/22 10:00 Magnesium Oxide 400 Mg Tab PO QDAY [facility] Methylprednisolone Sodium Succinate 60 mg 05/15/22 18:00 05/16/22 05:50 Methylprednisolone Sod Succinate 125 Mg/2 Ml Inj IV 60 mg Q8HR MURALI Administration Metoclopramide HCl 10 mg 05/15/22 17:05 Metoclopramide 10 Mg/2 Ml Inj IV Q6H PRN Nausea And Vomiting Montelukast Sodium 10 mg 05/15/22 18:00 05/16/22 06:15 Montelukast 10 Mg Tab PO Not Given QPM [facility] Montelukast Sodium 10 mg 05/15/22 18:00 05/16/22 06:15 Montelukast 10 Mg Tab PO Not Given QPM [facility] Ondansetron HCl 4 mg 05/15/22 21:48 Ondansetron 4 Mg/2 Ml Inj IV Q3H PRN Nausea And Vomiting Oxycodone/Acetaminophen 1 tab 05/15/22 21:48 Oxycodone /Acetaminophen 5-325mg Tab PO Q6H PRN Pain, Moderate (4-6) Sodium Chloride 10 ml 05/15/22 22:00 05/16/22 06:16 Sodium Chloride 0.9% 10 Ml Flush Syringe IV Not Given BID MURALI Sodium Chloride 10 ml 05/15/22 17:05 Sodium Chloride 0.9% 10 Ml Flush Syringe IV PRN PRN LINE FLUSH Tramadol HCl 50 mg 05/15/22 17:09 Tramadol 50 Mg Tab PO Q8HR PRN Pain, Moderate (4-6)
[2022-05-16] MEDS: MAGNESIUM OXIDE 400 MG TAB PO SCH (09:59)
[2022-05-16] MEDS: ASCORBIC ACID 500 MG TAB PO SCH (09:59)
[2022-05-16] MEDS: CETIRIZINE 10 MG TAB PO SCH (09:59)
[2022-05-16] MEDS: INSULIN NPH/REGULAR 70/30 INJ SUB-Q SCH ×2 (10:14→20:51)
--- NOTE | 2022-05-16 11:07 | Electrocardiograph Report ---
[facility] Test Date: 2022-05-15 Test Time: 08:30:27 Pat Name: DAHIANA GERMAN Department: Room: A379 Gender: F Clinical Abstractor: DAVIDSON : 1970 Requested By: MINE SHAW Order Number: [id number] Reading MD: Royer Ac Measurements Intervals Tiona Rate: 91 P: 12 VA: 153 QRS: 18 QRSD: 80 T: 12 QT: 350 QTc: 432 Interpretive Statements Sinus rhythm ST elevation, consider lateral injury,non specific change. Compared to ECG 05/01/2022 23:26:16 ST (T wave) deviation now present Myocardial infarct finding now present Sinus tachycardia no longer present Electronically Signed On 05-16-2022 11:07:28 EDT by Royer Ac
[2022-05-16 13:14] LABS: Band Neutrophils # (Manual) 0.8 K/mm3; Basophils % (Manual) 0 % (0.0-1.8); Eosinophils % (Manual) 0 % (0.0-4.3); Monocytes % (Manual) 0 % (0.0-7.3); Platelet Estimate Consistent w Auto; RBC Morphology Normal; Total Cells Counted 100
[2022-05-16] MEDS: INSULIN LISPRO 100 UNIT/ML SUB-Q SCH ×3 (14:44→22:51)
[2022-05-17 00:39] VITALS: BP 125/77
[2022-05-17] MEDS: BENZONATATE 100 MG CAP PO SCH ×4 (00:43→16:04)
[2022-05-17] MEDS: methylPREDNISolone Sod Succinate 125 MG/2 ML INJ IV SCH ×2 (06:20→15:58)
[2022-05-17] MEDS: IPRATROPIUM/ALBUTEROL SULFATE 3 ML AMPUL.NEB IH SCH ×4 (06:30→15:21)
[2022-05-17] MEDS: FAMOTIDINE 20 MG TAB PO SCH (09:32)
[2022-05-17] MEDS: MAGNESIUM OXIDE 400 MG TAB PO SCH (09:32)
[2022-05-17] MEDS: LEVOTHYROXINE 25 MCG TAB PO SCH (09:32)
[2022-05-17] MEDS: CETIRIZINE 10 MG TAB PO SCH (09:32)
[2022-05-17] MEDS: HEPARIN 5,000 UNIT/1 ML VIAL SUB-Q SCH (09:39)
[2022-05-17] MEDS: INSULIN NPH/REGULAR 70/30 INJ SUB-Q SCH (09:42)
[2022-05-17] MEDS: ASCORBIC ACID 500 MG TAB PO SCH (09:45)
[2022-05-17] MEDS: INSULIN LISPRO 100 UNIT/ML SUB-Q SCH (12:02)
--- NOTE | 2022-05-17 12:48 | Discharge Summary ---
Providers - Providers Date of Admission: 05/15/22 21:48 Date of discharge: 05/17/22 Attending physician: NALDO MADRID Primary care physician: SWITCH FOREMAN Hospitalization Reason for admission: Acute hypoxic respiratory failure Condition: Stable Pertinent studies: Chest x-ray/no acute abnormality noted Hospital course: 1) Acute respiratory failure with hypoxia Current Visit: Yes Status: Acute Plan to address problem: Patient was hypoxic at the time of presentation to the emergency room improved with oxygen supplementation (2) Status asthmaticus Current Visit: Yes Status: Acute Qualifiers: Asthma severity: severe Plan to address problem: Continue duo nebs [id number] and as needed, IV Solu-Medrol 60 mg every 6 IV Levaquin 750 mg daily Respiratory assessment and treatment (3) Allergic rhinitis Current Visit: Yes Status: Chronic Qualifiers: Allergic rhinitis seasonality: non-seasonal Plan to address problem: Continue Zyrtec (4) GERD (gastroesophageal reflux disease) Current Visit: Yes Status: Chronic Qualifiers: Esophagitis presence: without esophagitis Qualified Code(s): K21.9 - Gastro-esophageal reflux disease without esophagitis Plan to address problem: Continue PPIs (5) Hypothyroidism (acquired) Current Visit: Yes Status: Chronic Plan to address problem: Continue Synthroid Check TSH (6) DVT prophylaxis Current Visit: Yes Status: Acute Plan to address problem: On heparin and GI prophylaxis (7) Advance care planning Current Visit: Yes Status: Acute Plan to address problem: Disease education conducted, diagnosis discussed prognosis discussed. Care plan acknowledged +30 minutes patient is full code. Disposition: 01 HOME / SELF CARE / HOMELESS Final Discharge Diagnosis (Prints w/discharge instructions): Acute respiratory failure with hypoxia requiring supplemental oxygen present on admission. status asthmaticus/improved. Allergic rhinitis. Gastroesophageal reflux disease. Hypothyroidism. Obesity BMI 34.7. DVT prophylaxis Time spent for discharge: 40 min Core Measure Documentation - Palliative Care Palliative Care/ Comfort Measures: Not Applicable - Core Measures Any of the following diagnoses?: none Exam - Constitutional Vitals: Temp Pulse Resp BP Pulse Ox 97.9 F 110 H 20 125/77 97 05/16/22 22:58 05/17/22 06:30 05/17/22 06:30 05/16/22 22:58 05/16/22 23:52 General appearance: Present: no acute distress, well-nourished - EENT Eyes: Present: PERRL, EOM intact - Neck Neck: Present: supple, normal ROM - Respiratory Respiratory effort: normal Respiratory: bilateral: diminished, negative: rales, rhonchi, wheezing - Cardiovascular Rhythm: regular Heart Sounds: Present: S1 & S2 - Extremities Extremities: no ischemia, No edema - Abdominal General gastrointestinal: Present: soft, non-tender, non-distended, normal bowel sounds - Integumentary Integumentary: Present: clear, warm - Musculoskeletal Musculoskeletal: strength equal bilaterally - Psychiatric Psychiatric: appropriate mood/affect, cooperative - Neurologic Neurologic: CNII-XII intact, moves all extremities Plan Activity: advance as tolerated Diet: other (Cardiac diet) Additional Instructions: For worsening symptoms contact MD or go to the nearest emergency room as needed. Advised to comply with medications follow-up visits. Advised dietary modification, exercise as tolerated and weight reduction when stable. Follow-up primary care physician 5 to 7 days. Private health promotion specialist in 1 week to 2 weeks Follow up with: PRIMARY CARE,MD [Primary Care Provider] - 3-5 Days Prescriptions: Fluticasone/Salmeterol [Advair Diskus 500-50 mcg] 1 puff IH BID #1 Ipratropium/Albuter (Nf) [Combivent Inhaler] 2 puff IH QID #1 each Ipratropium/Albuterol Sulfate [DUONEB *Not for PRN Use*] 1 ampul IH QIDRT #30 ampul.neb Fluticasone [Flonase] 1 spray NS QDAY #1 bottle levoFLOXacin [Levaquin] 750 mg PO QDAY #5 tablet predniSONE 10 mg PO DAILY #39 Albuterol Mdi (or & Nicu Only) [ProAir HFA Inhaler] 2 puff IH QID PRN #8.5 gram PRN Reason: Shortness Of Breath REscue Levothyroxine [Synthroid] 25 mcg PO QDAY #30 Cetirizine HCl [ZyrTEC 10mg cap] 10 mg PO DAILY #30 capsule
== END 2022-05-17 18:45 | disposition home or self-care (01) | DRG 189 ==
LOC: ED 07:28 → 3A 21:48
PROVIDERS: ADMIT Internal Medicine; ATTEND Internal Medicine
DX: J96.01 Acute respiratory failure with hypoxia (principal); J45.902 Unspecified asthma with status asthmaticus; K21.9 Gastro-esophageal reflux disease without esophagitis; E03.9 Hypothyroidism, unspecified; Z88.6 Allergy status to analgesic agent; Z88.5 Allergy status to narcotic agent; Z88.0 Allergy status to penicillin; Z88.8 Allergy status to other drugs, medicaments and biological substances
CPT/HCPCS: 36415; 71045; 80048; 80053; 82962; 85007; 85025; 87641; 93005; 94640; 94644; 94760; G0378; Q0177; Q9967; J1200; J1644; J1815; J1956; J2930; J3475; J7030